=== PATIENT | female | born 1950 | race Caucasian/White ===

== ENCOUNTER 2017-03-17 02:33 | Inpatient (IN) | payer OTHER ==
[2017-03-17] MEDS: IV NORMAL SALINE 1000ML BAG 1,000 ML IV ×2 (03:00→15:15)
[2017-03-17] MEDS: dilTIAZem 125 MG in IV NORMAL SALINE 100ML 100 ML IV (03:30)
[2017-03-17 03:36] LABS: ADD MAN DIFF? NO
[2017-03-17 03:43] LABS: POC GLUCOSE 579 mg/dL (70-99)
[2017-03-17] MEDS: INSULIN REGULAR 100 UNIT/ML 10ML VIAL. IV (03:45)
[2017-03-17] MEDS: dilTIAZem IV PUSH 25 MG/5 ML VIAL IVP (03:51)
[2017-03-17 03:54] LABS: BASO # 0.1 x10^3/uL (0.0-0.2); BASO % 0 % (0-3); EOS % 0 % (0-3); HEMOGLOBIN 10.4 g/dL (12.0-15.5); LYMPH # 0.9 x10^3/uL (1.0-4.8); LYMPH % 6 % (24-48); MEAN CORPUSCULAR HEMOGLOBIN 30 pg (25-35); MEAN CORPUSCULAR HGB CONC 33 g/dL (31-37); MEAN CORPUSCULAR VOLUME 91 fL (79-100); MONO # 1.5 x10^3/uL (0.0-1.1); MONO % 10 % (0-9); NEUT # 12.3 x10^3uL (1.8-7.7); NEUT % 83 % (31-73); PLATELET COUNT 212 x10^3/uL (140-400); RED BLOOD COUNT 3.51 x10^6/uL (3.50-5.40); RED CELL DISTRIBUTION WIDTH 16.2 % (11.5-14.5); WHITE BLOOD COUNT 14.9 x10^3/uL (4.0-11.0)
[2017-03-17 03:56] LABS: INR 1.4 (0.8-1.1); PROTHROMBIN TIME PATIENT 16.3 SEC (11.7-14.0)
[2017-03-17 03:57] LABS: PARTIAL THROMBOPLASTIN TIME 31 SEC (24-38)
[2017-03-17 04:20] LABS: NT-PRO BNP 15638 pg/mL (0-124)
[2017-03-17 04:22] LABS: THYROID STIM HORMONE (TSH) 1.401 uIU/mL (0.358-3.74)
[2017-03-17 04:23] LABS: LACTIC ACID 1.8 mmol/L (0.4-2.0)
[2017-03-17 04:26] LABS: ALBUMIN 2.5 g/dL (3.4-5.0); ALBUMIN/GLOBULIN RATIO 0.7 (1.0-1.7); ALK PHOS 105 U/L (46-116); ALT (SGPT) 58 U/L (14-59); ANION GAP 15 (6-14); AST (SGOT) 71 U/L (15-37); BLOOD UREA NITROGEN 40 mg/dL (7-20); BUN/CREATININE RATIO 18 (6-20); CALCIUM 7.9 mg/dL (8.5-10.1); CARBON DIOXIDE 25 mmol/L (21-32); CHLORIDE 90 mmol/L (98-107); CREATINE KINASE 302 U/L (26-192); CREATININE 2.2 mg/dL (0.6-1.0); GFR 22.2; LIPASE 38 U/L (73-393); MAGNESIUM 1.6 mg/dL (1.8-2.4); SODIUM 130 mmol/L (136-145); TOTAL BILIRUBIN 0.6 mg/dL (0.2-1.0); TOTAL PROTEIN 6.2 g/dL (6.4-8.2)
[2017-03-17 04:45] LABS: ETHANOL < 10 mg/dL (0-10)
[2017-03-17 04:47] LABS: TROPONINI 1.006 ng/mL (0.000-0.055)
[2017-03-17 04:49] LABS: GLUCOSE 634 mg/dL (70-99)
[2017-03-17] MEDS ORDERED: ONDANSETRON PF 4 MG/2 ML VIAL. IV ×2 (05:00→08:15)
[2017-03-17] MEDS ORDERED: cefTRIAXone SODIUM 2 GM in IV DEXTROSE 5% 100 ML IV (06:00)
[2017-03-17] MEDS: ASPIRIN ENTERIC COATED 325 MG TABLET.DR. PO (06:10)
[2017-03-17 06:14] LABS: INFLUENZA A PATIENT NEGATIVE (NEGATIVE); INFLUENZA B PATIENT NEGATIVE (NEGATIVE); OBC FLU VALID
[2017-03-17 06:16] LABS: POC GLUCOSE 493 mg/dL (70-99)
[2017-03-17] MEDS: INSULIN ASPART 300 UNITS/3 ML INSULN.PEN SQ ×6 (08:00→17:00)
[2017-03-17] MEDS ORDERED: ACETAMINOPHEN 500 MG TABLET PO (08:00)
[2017-03-17] MEDS ORDERED: ALBUTEROL SULFATE 2.5 MG/3 ML NEBU. NEB (08:15)
[2017-03-17 08:28] LABS: POC GLUCOSE 549 mg/dL (70-99)
[2017-03-17] MEDS: INSULIN DETEMIR 300 UNITS/3 ML INSULN.PEN. SQ ×2 (09:00→21:00)
[2017-03-17] MEDS ORDERED: ERGOCALCIFEROL (VITAMIN D2) 50,000 UNIT CAPSULE. PO (09:00)
[2017-03-17] MEDS: cefTRIAXone IV Push 2 GM VIAL. IVP (10:06)
[2017-03-17] MEDS: PANTOPRAZOLE 40 MG TABLET.DR. PO (11:03)
[2017-03-17] MEDS: FUROSEMIDE 40 MG TABLET. PO (11:03)
[2017-03-17] MEDS: AZITHROMYCIN 250 MG TABLET. PO (11:03)
[2017-03-17] MEDS: POTASSIUM CHLORIDE 20 MEQ TABLET.ER. PO (11:03)
[2017-03-17] MEDS: FENOFIBRATE,MICRONIZED 134 MG CAPSULE PO (11:04)
[2017-03-17] MEDS: AMIODARONE HCL 200 MG TABLET. PO ×2 (11:04→21:04)
[2017-03-17] MEDS: METOPROLOL SUCC 24HR ER 25 MG TAB.ER.24H. PO (11:04)
[2017-03-17] MEDS: LOSARTAN POTASSIUM 50 MG TABLET. PO (11:04)
[2017-03-17] MEDS: LACTOBACILLUS RHAMNOSUS GG 1 CAPSULE. PO ×2 (11:05→21:04)
[2017-03-17] MEDS: VENLAFAXINE 50 MG TABLET. PO ×3 (11:05→21:04)
[2017-03-17] MEDS: predniSONE 10 MG TABLET PO (11:07)
[2017-03-17 11:18] LABS: TROPONINI 1.306 ng/mL (0.000-0.055)
[2017-03-17 11:57] LABS: POC GLUCOSE 550 mg/dL (70-99)
[2017-03-17] MEDS: IPRATRPIUM/ALBUTEROL 0.5/2.5MG 3 ML NEBU. IH ×5 (12:00→21:06)
[2017-03-17] MEDS ORDERED: DEXTROSE 50% 25 GM / 50ML DISP.SYRIN. IV (13:30)
[2017-03-17 13:44] LABS: CHOLESTEROL 170 mg/dL (0-200); HDLC 40 mg/dL (40-60); LDLC 89 mg/dL (0-100); NON-HDL CHOLESTEROL 130 mg/dL (0-129); TRIGLYCERIDES 206 mg/dL (0-150); VLDLC 41 mg/dL (0-40)
[2017-03-17 13:56] LABS: CHOLESTEROL/HDL RATIO 4.3
[2017-03-17] MEDS: MAGNESIUM SULFATE 2GM 50 ML IV (15:16)
[2017-03-17] MEDS: HEPARIN for IV BOLUS 10,000 UNIT/10 ML VIAL. IV (15:18)
[2017-03-17] MEDS: HEPARIN 25,000UTS/500ML PREMIX 500 ML IV (15:20)
[2017-03-17 15:24] LABS: POC GLUCOSE 476 mg/dL (70-99)
[2017-03-17] MEDS: INSULIN REGULAR VIAL 150 UNIT in 0.9 % SODIUM CHLORIDE 150ML 150 ML IV ×2 (15:32→23:51)
[2017-03-17 16:24] LABS: POC GLUCOSE 441 mg/dL (70-99)
[2017-03-17] MEDS ORDERED: dilTIAZem 125 MG in IV NORMAL SALINE 100ML 100 ML IV (17:15)
[2017-03-17 17:27] LABS: POC GLUCOSE 445 mg/dL (70-99)
[2017-03-17 18:30] LABS: POC GLUCOSE 378 mg/dL (70-99)
[2017-03-17 18:47] LABS: TROPONINI 0.851 ng/mL (0.000-0.055)
[2017-03-17 19:58] LABS: POC GLUCOSE 380 mg/dL (70-99)
[2017-03-17] MEDS: BUDESONIDE 0.5 MG/2 ML NEBU. NEB (20:04)
[2017-03-17 20:28] LABS: POC GLUCOSE 371 mg/dL (70-99)
[2017-03-17] MEDS: clonazePAM 0.5 MG TABLET PO (21:04)
[2017-03-17] MEDS: traZODone 100 MG TABLET. PO (21:04)
[2017-03-17 21:42] LABS: POC GLUCOSE 300 mg/dL (70-99)
[2017-03-17 21:47] LABS: UNFRACTIONATED HEPARIN TESTING > 1.10 IU/mL (0.30-0.70)
[2017-03-17] MEDS: ATORVASTATIN CALCIUM 40 MG TABLET. PO (22:41)
[2017-03-17 22:48] LABS: POC GLUCOSE 284 mg/dL (70-99)
[2017-03-17 23:54] LABS: POC GLUCOSE 221 mg/dL (70-99)
[2017-03-18] MEDS: IV NORMAL SALINE 1000ML BAG 1,000 ML IV ×6 (00:30→18:55)
[2017-03-18 00:57] LABS: POC GLUCOSE 195 mg/dL (70-99)
[2017-03-18 01:58] LABS: POC GLUCOSE 187 mg/dL (70-99)
[2017-03-18 03:06] LABS: POC GLUCOSE 159 mg/dL (70-99)
[2017-03-18 04:08] LABS: POC GLUCOSE 140 mg/dL (70-99)
[2017-03-18 04:19] LABS: HEMOGLOBIN A1C 8.8 % (4.8-5.6)
[2017-03-18 04:47] LABS: BASO % 0 % (0-3); EOS % 0 % (0-3); HEMATOCRIT 27.6 % (36.0-47.0); HEMOGLOBIN 9.2 g/dL (12.0-15.5); LYMPH # 1.2 x10^3/uL (1.0-4.8); LYMPH % 9 % (24-48); MEAN CORPUSCULAR HEMOGLOBIN 31 pg (25-35); MEAN CORPUSCULAR HGB CONC 33 g/dL (31-37); MEAN CORPUSCULAR VOLUME 92 fL (79-100); MONO # 1.2 x10^3/uL (0.0-1.1); MONO % 9 % (0-9); NEUT # 11.1 x10^3uL (1.8-7.7); NEUT % 82 % (31-73); PLATELET COUNT 182 x10^3/uL (140-400); RED BLOOD COUNT 3.01 x10^6/uL (3.50-5.40); RED CELL DISTRIBUTION WIDTH 16.3 % (11.5-14.5); WHITE BLOOD COUNT 13.6 x10^3/uL (4.0-11.0)
[2017-03-18 04:50] LABS: ADD MAN DIFF? YES
[2017-03-18 04:57] LABS: ANION GAP 10 (6-14); BLOOD UREA NITROGEN 49 mg/dL (7-20); CALCIUM 7.7 mg/dL (8.5-10.1); CARBON DIOXIDE 27 mmol/L (21-32); CHLORIDE 99 mmol/L (98-107); CREATININE 2.7 mg/dL (0.6-1.0); GFR 17.5; GLUCOSE 145 mg/dL (70-99); POTASSIUM 4.1 mmol/L (3.5-5.1); SODIUM 136 mmol/L (136-145)
[2017-03-18 05:13] LABS: POC GLUCOSE 135 mg/dL (70-99)
[2017-03-18 06:10] LABS: POC GLUCOSE 111 mg/dL (70-99)
[2017-03-18 06:20] LABS: UNFRACTIONATED HEPARIN TESTING > 1.10 IU/mL (0.30-0.70)
[2017-03-18] MEDS: cefTRIAXone IV Push 2 GM VIAL. IVP (06:21)
[2017-03-18 07:13] LABS: POC GLUCOSE 116 mg/dL (70-99)
[2017-03-18] MEDS: INSULIN ASPART 300 UNITS/3 ML INSULN.PEN SQ ×6 (07:30→17:00)
[2017-03-18 07:57] LABS: POC GLUCOSE 100 mg/dL (70-99)
[2017-03-18 07:58] LABS: % BANDS 12 % (0-9); % EOS 1 % (0-5); % LYMPHS 7 % (24-48); % METAS 1 % (0-0); % MONOS 9 % (0-10); % SEGS 70 % (35-66); NUCLEATED RBC 2; PLT ESTIMATE ADEQUATE (ADEQUATE)
[2017-03-18 07:59] LABS: ANISOCYTOSIS SLIGHT; POLYCHROMASIA PRESENT
[2017-03-18] MEDS: IPRATRPIUM/ALBUTEROL 0.5/2.5MG 3 ML NEBU. IH ×3 (07:59→16:05)
[2017-03-18] MEDS: BUDESONIDE 0.5 MG/2 ML NEBU. NEB ×2 (08:00→21:08)
[2017-03-18 08:18] LABS: POC GLUCOSE 98 mg/dL (70-99)
[2017-03-18] MEDS: INSULIN DETEMIR 300 UNITS/3 ML INSULN.PEN. SQ ×2 (09:00→21:23)
[2017-03-18 09:21] LABS: POC GLUCOSE 98 mg/dL (70-99)
[2017-03-18 10:28] LABS: POC GLUCOSE 105 mg/dL (70-99)
[2017-03-18 12:16] LABS: POC GLUCOSE 138 mg/dL (70-99)
[2017-03-18] MEDS: REGADENOSON 0.4 MG/5 ML DISP.SYRIN. IV (12:30)
[2017-03-18] MEDS: AMIODARONE HCL 200 MG TABLET. PO ×2 (13:21→21:21)
[2017-03-18] MEDS: predniSONE 10 MG TABLET PO (13:21)
[2017-03-18] MEDS: PANTOPRAZOLE 40 MG TABLET.DR. PO (13:21)
[2017-03-18] MEDS: LACTOBACILLUS RHAMNOSUS GG 1 CAPSULE. PO ×2 (13:21→21:20)
[2017-03-18] MEDS: FENOFIBRATE,MICRONIZED 134 MG CAPSULE PO (13:21)
[2017-03-18] MEDS: VENLAFAXINE 50 MG TABLET. PO ×3 (13:21→21:20)
[2017-03-18] MEDS: METOPROLOL SUCC 24HR ER 25 MG TAB.ER.24H. PO (13:21)
[2017-03-18] MEDS: dilTIAZem HCL 30 MG TABLET PO (15:38)
[2017-03-18] MEDS: HYDROcodone/APAP 5/325MG 1 TAB TABLET PO (15:39)
[2017-03-18] MEDS: DIGOXIN IV 500 MCG/2 ML AMPUL. IV (15:39)
[2017-03-18] MEDS: COLESTIPOL HCL 1 GM TABLET PO (16:00)
[2017-03-18 17:13] LABS: POC GLUCOSE 203 mg/dL (70-99)
[2017-03-18] MEDS: ATORVASTATIN CALCIUM 40 MG TABLET. PO (21:20)
[2017-03-18] MEDS: traZODone 100 MG TABLET. PO (21:20)
[2017-03-18] MEDS: clonazePAM 0.5 MG TABLET PO (21:21)
[2017-03-18 21:22] LABS: POC GLUCOSE 267 mg/dL (70-99)
[2017-03-19] MEDS: cefTRIAXone IV Push 2 GM VIAL. IVP (05:25)
[2017-03-19] MEDS: IV NORMAL SALINE 1000ML BAG 1,000 ML IV ×6 (05:25→21:07)
[2017-03-19] MEDS: IPRATRPIUM/ALBUTEROL 0.5/2.5MG 3 ML NEBU. IH ×4 (07:36→19:30)
[2017-03-19] MEDS ORDERED: ASPIRIN ENTERIC COATED 325 MG TABLET.DR. PO (08:00)
[2017-03-19 08:19] LABS: POC GLUCOSE 279 mg/dL (70-99)
[2017-03-19 08:34] LABS: ANION GAP 8 (6-14); BLOOD UREA NITROGEN 42 mg/dL (7-20); CALCIUM 7.3 mg/dL (8.5-10.1); CARBON DIOXIDE 26 mmol/L (21-32); CHLORIDE 104 mmol/L (98-107); CREATININE 1.8 mg/dL (0.6-1.0); GLUCOSE 291 mg/dL (70-99); MAGNESIUM 2.4 mg/dL (1.8-2.4); POTASSIUM 4.7 mmol/L (3.5-5.1); SODIUM 138 mmol/L (136-145)
[2017-03-19] MEDS: INSULIN DETEMIR 300 UNITS/3 ML INSULN.PEN. SQ ×2 (09:19→21:24)
[2017-03-19] MEDS: INSULIN ASPART 300 UNITS/3 ML INSULN.PEN SQ ×6 (09:31→18:34)
[2017-03-19] MEDS: PANTOPRAZOLE 40 MG TABLET.DR. PO (09:53)
[2017-03-19] MEDS: ASPIRIN ENTERIC COATED 81 MG TABLET.DR. PO (09:53)
[2017-03-19] MEDS: LACTOBACILLUS RHAMNOSUS GG 1 CAPSULE. PO ×2 (09:53→21:03)
[2017-03-19] MEDS: FENOFIBRATE,MICRONIZED 134 MG CAPSULE PO (09:54)
[2017-03-19] MEDS: VENLAFAXINE 50 MG TABLET. PO ×3 (09:54→21:02)
[2017-03-19] MEDS: predniSONE 10 MG TABLET PO (09:59)
[2017-03-19] MEDS: AMIODARONE HCL 200 MG TABLET. PO ×2 (09:59→21:03)
[2017-03-19] MEDS: METOPROLOL SUCC 24HR ER 25 MG TAB.ER.24H. PO (10:00)
[2017-03-19] MEDS: BUDESONIDE 0.5 MG/2 ML NEBU. NEB ×2 (11:20→19:31)
[2017-03-19] MEDS: COLESTIPOL HCL 1 GM TABLET PO (11:35)
[2017-03-19 11:54] LABS: POC GLUCOSE 264 mg/dL (70-99)
[2017-03-19] MEDS ORDERED: ANTI-COAG MONITOR BY PHARMACY. MC (13:45)
[2017-03-19] MEDS: APIXABAN 5 MG TABLET. PO (16:04)
[2017-03-19 16:38] LABS: POC GLUCOSE 286 mg/dL (70-99)
[2017-03-19 16:53] LABS: BILIRUBIN,URINE NEGATIVE (NEG); CLARITY,URINE CLEAR; COLOR,URINE YELLOW; GLUCOSE,URINE 100 mg/dL (NEG); NITRITE,URINE NEGATIVE (NEG); PH,URINE 5.5; PROTEIN,URINE NEGATIVE (NEG-TRACE); UROBILINOGEN,URINE 0.2 mg/dL (0.2 mg/dL)
[2017-03-19 17:13] LABS: BACTERIA,URINE 0 /HPF (0-FEW); RBC,URINE 0 /HPF (0-2); SQUAMOUS EPITHELIAL CELL,UR OCC /LPF; YEAST,URINE PRESENT /HPF
[2017-03-19] MEDS: clonazePAM 0.5 MG TABLET PO (21:02)
[2017-03-19] MEDS: ATORVASTATIN CALCIUM 40 MG TABLET. PO (21:02)
[2017-03-19] MEDS: HYDROcodone/APAP 5/325MG 1 TAB TABLET PO (21:02)
[2017-03-19] MEDS: traZODone 100 MG TABLET. PO (21:02)
[2017-03-19 21:10] LABS: POC GLUCOSE 308 mg/dL (70-99)
[2017-03-20 05:43] LABS: ANION GAP 8 (6-14); BLOOD UREA NITROGEN 34 mg/dL (7-20); CALCIUM 6.2 mg/dL (8.5-10.1); CARBON DIOXIDE 25 mmol/L (21-32); CHLORIDE 110 mmol/L (98-107); CREATININE 1.1 mg/dL (0.6-1.0); GFR 49.4; GLUCOSE 96 mg/dL (70-99); POTASSIUM 3.9 mmol/L (3.5-5.1); SODIUM 143 mmol/L (136-145)
[2017-03-20] MEDS: cefTRIAXone IV Push 2 GM VIAL. IVP (06:04)
[2017-03-20] MEDS: INSULIN ASPART 300 UNITS/3 ML INSULN.PEN SQ ×6 (07:30→18:13)
[2017-03-20] MEDS: IPRATRPIUM/ALBUTEROL 0.5/2.5MG 3 ML NEBU. IH ×4 (07:44→20:59)
[2017-03-20] MEDS: BUDESONIDE 0.5 MG/2 ML NEBU. NEB ×2 (07:44→20:59)
[2017-03-20 08:00] LABS: POC GLUCOSE 69 mg/dL (70-99)
[2017-03-20 08:19] LABS: POC GLUCOSE 86 mg/dL (70-99)
[2017-03-20] MEDS: ASPIRIN ENTERIC COATED 81 MG TABLET.DR. PO (08:53)
[2017-03-20] MEDS: LACTOBACILLUS RHAMNOSUS GG 1 CAPSULE. PO ×2 (08:53→22:26)
[2017-03-20] MEDS: VENLAFAXINE 50 MG TABLET. PO ×3 (08:53→22:26)
[2017-03-20] MEDS: predniSONE 10 MG TABLET PO (08:53)
[2017-03-20] MEDS: PANTOPRAZOLE 40 MG TABLET.DR. PO (08:53)
[2017-03-20] MEDS: AMIODARONE HCL 200 MG TABLET. PO ×2 (08:53→22:28)
[2017-03-20] MEDS: FENOFIBRATE,MICRONIZED 134 MG CAPSULE PO (08:54)
[2017-03-20] MEDS: METOPROLOL SUCC 24HR ER 25 MG TAB.ER.24H. PO (08:54)
[2017-03-20] MEDS: INSULIN DETEMIR 300 UNITS/3 ML INSULN.PEN. SQ ×2 (09:00→22:35)
[2017-03-20] MEDS: IV NORMAL SALINE 1000ML BAG 1,000 ML IV (10:32)
[2017-03-20] MEDS: COLESTIPOL HCL 1 GM TABLET PO (10:32)
[2017-03-20 11:32] LABS: POC GLUCOSE 187 mg/dL (70-99)
[2017-03-20] MEDS: CALCIUM CHLORIDE 1,000 MG/10 ML DISP.SYRIN IV (11:50)
[2017-03-20 16:56] LABS: POC GLUCOSE 194 mg/dL (70-99)
[2017-03-20 20:49] LABS: POC GLUCOSE 184 mg/dL (70-99)
[2017-03-20] MEDS: ATORVASTATIN CALCIUM 40 MG TABLET. PO (22:26)
[2017-03-20] MEDS: clonazePAM 0.5 MG TABLET PO (22:27)
[2017-03-20] MEDS: traZODone 100 MG TABLET. PO (22:27)
[2017-03-20] MEDS: HYDROcodone/APAP 5/325MG 1 TAB TABLET PO (22:27)
[2017-03-21] MEDS: IV NORMAL SALINE 1000ML BAG 1,000 ML IV ×2 (02:25→17:34)
[2017-03-21] MEDS: HYDROcodone/APAP 5/325MG 1 TAB TABLET PO ×2 (04:57→21:56)
[2017-03-21] MEDS: cefTRIAXone IV Push 2 GM VIAL. IVP (05:03)
[2017-03-21 07:22] LABS: ADD MAN DIFF? NO
[2017-03-21] MEDS: INSULIN ASPART 300 UNITS/3 ML INSULN.PEN SQ ×6 (07:30→17:37)
[2017-03-21 07:37] LABS: BASO % 0 % (0-3); EOS % 1 % (0-3); HEMATOCRIT 28.6 % (36.0-47.0); HEMOGLOBIN 9.3 g/dL (12.0-15.5); LYMPH # 1.2 x10^3/uL (1.0-4.8); LYMPH % 16 % (24-48); MEAN CORPUSCULAR HEMOGLOBIN 30 pg (25-35); MEAN CORPUSCULAR HGB CONC 32 g/dL (31-37); MEAN CORPUSCULAR VOLUME 93 fL (79-100); MONO # 0.6 x10^3/uL (0.0-1.1); MONO % 8 % (0-9); NEUT # 5.5 x10^3uL (1.8-7.7); NEUT % 74 % (31-73); PLATELET COUNT 223 x10^3/uL (140-400); RED BLOOD COUNT 3.08 x10^6/uL (3.50-5.40); RED CELL DISTRIBUTION WIDTH 16.3 % (11.5-14.5); WHITE BLOOD COUNT 7.3 x10^3/uL (4.0-11.0)
[2017-03-21 07:41] LABS: CALCIUM 8.6 mg/dL (8.5-10.1)
[2017-03-21 07:41] LABS: MAGNESIUM 2.1 mg/dL (1.8-2.4)
[2017-03-21 08:17] LABS: POC GLUCOSE 67 mg/dL (70-99)
[2017-03-21] MEDS: IPRATRPIUM/ALBUTEROL 0.5/2.5MG 3 ML NEBU. IH ×4 (08:25→18:15)
[2017-03-21] MEDS: BUDESONIDE 0.5 MG/2 ML NEBU. NEB ×2 (08:25→18:15)
[2017-03-21] MEDS: PANTOPRAZOLE 40 MG TABLET.DR. PO (09:03)
[2017-03-21] MEDS: ASPIRIN ENTERIC COATED 81 MG TABLET.DR. PO (09:03)
[2017-03-21] MEDS: VENLAFAXINE 50 MG TABLET. PO ×3 (09:03→21:57)
[2017-03-21] MEDS: predniSONE 10 MG TABLET PO (09:03)
[2017-03-21] MEDS: LACTOBACILLUS RHAMNOSUS GG 1 CAPSULE. PO ×2 (09:03→21:57)
[2017-03-21] MEDS: FENOFIBRATE,MICRONIZED 134 MG CAPSULE PO (09:03)
[2017-03-21] MEDS: AMIODARONE HCL 200 MG TABLET. PO ×2 (09:04→21:57)
[2017-03-21] MEDS: METOPROLOL SUCC 24HR ER 25 MG TAB.ER.24H. PO (09:04)
[2017-03-21] MEDS: INSULIN DETEMIR 300 UNITS/3 ML INSULN.PEN. SQ ×2 (09:08→22:05)
[2017-03-21] MEDS: COLESTIPOL HCL 1 GM TABLET PO (10:14)
[2017-03-21 11:56] LABS: POC GLUCOSE 146 mg/dL (70-99)
[2017-03-21] MEDS: DIPHENHYDRAMINE/ZINC ACETATE 2%/0.1% TOPICAL CREAM 28GM TUBE. TP ×3 (13:13→22:07)
[2017-03-21 16:37] LABS: POC GLUCOSE 184 mg/dL (70-99)
[2017-03-21 18:24] LABS: UNFRACTIONATED HEPARIN TESTING < 0.10 IU/mL (0.30-0.70)
[2017-03-21 21:06] LABS: POC GLUCOSE 146 mg/dL (70-99)
[2017-03-21] MEDS: traZODone 100 MG TABLET. PO (21:55)
[2017-03-21] MEDS: clonazePAM 0.5 MG TABLET PO (21:56)
[2017-03-21] MEDS: ATORVASTATIN CALCIUM 40 MG TABLET. PO (21:56)
[2017-03-22] MEDS: IV NORMAL SALINE 1000ML BAG 1,000 ML IV ×2 (02:55→13:12)
[2017-03-22] MEDS: cefTRIAXone IV Push 2 GM VIAL. IVP (05:05)
[2017-03-22] MEDS: IPRATRPIUM/ALBUTEROL 0.5/2.5MG 3 ML NEBU. IH ×4 (06:05→19:48)
[2017-03-22] MEDS: BUDESONIDE 0.5 MG/2 ML NEBU. NEB ×2 (06:05→19:48)
[2017-03-22] MEDS: INSULIN ASPART 300 UNITS/3 ML INSULN.PEN SQ ×6 (07:30→17:00)
[2017-03-22] MEDS: PANTOPRAZOLE 40 MG TABLET.DR. PO (07:30)
[2017-03-22] MEDS: DEXTROSE 50% 25 GM / 50ML DISP.SYRIN. IV ×2 (08:18→13:13)
[2017-03-22] MEDS: VENLAFAXINE 50 MG TABLET. PO ×3 (08:25→22:57)
[2017-03-22 08:43] LABS: POC GLUCOSE 104 mg/dL (70-99)
[2017-03-22 08:49] LABS: POC GLUCOSE 63 mg/dL (70-99)
[2017-03-22] MEDS: FENOFIBRATE,MICRONIZED 134 MG CAPSULE PO (09:00)
[2017-03-22] MEDS: LACTOBACILLUS RHAMNOSUS GG 1 CAPSULE. PO ×2 (09:00→22:57)
[2017-03-22] MEDS: predniSONE 10 MG TABLET PO (09:00)
[2017-03-22] MEDS: INSULIN DETEMIR 300 UNITS/3 ML INSULN.PEN. SQ ×2 (09:00→23:08)
[2017-03-22] MEDS: AMIODARONE HCL 200 MG TABLET. PO ×2 (09:08→22:58)
[2017-03-22] MEDS: ASPIRIN ENTERIC COATED 81 MG TABLET.DR. PO (09:08)
[2017-03-22] MEDS: METOPROLOL SUCC 24HR ER 25 MG TAB.ER.24H. PO (09:08)
[2017-03-22] MEDS: DIPHENHYDRAMINE/ZINC ACETATE 2%/0.1% TOPICAL CREAM 28GM TUBE. TP ×4 (09:09→23:07)
[2017-03-22] MEDS: COLESTIPOL HCL 1 GM TABLET PO (10:00)
[2017-03-22 10:34] LABS: POC GLUCOSE 75 mg/dL (70-99)
[2017-03-22 11:26] LABS: POC GLUCOSE 74 mg/dL (70-99)
[2017-03-22] MEDS: NITROGLYCERIN OINT 1 GM PACKET. TP (12:05)
[2017-03-22 12:15] LABS: POC GLUCOSE 72 mg/dL (70-99)
[2017-03-22 13:08] LABS: POC GLUCOSE 77 mg/dL (70-99)
[2017-03-22] MEDS ORDERED: LIDOCAINE 1% Multi-Dose 20 ML VIAL. (15:47)
[2017-03-22 15:59] LABS: POC GLUCOSE 91 mg/dL (70-99)
[2017-03-22] MEDS ORDERED: MIDAZOLAM HCL/PF 5 MG/5 ML VIAL. (16:19)
[2017-03-22] MEDS ORDERED: fentaNYL PF VIAL 100 MCG/2 ML VIAL (16:19)
[2017-03-22] MEDS ORDERED: HEPARIN for IV BOLUS 10,000 UNIT/10 ML VIAL. (16:19)
[2017-03-22] MEDS ORDERED: NITROGLYCERIN 200 MCG/2 ML SYRINGE FOR CATH/VASC LAB. (16:19)
[2017-03-22] MEDS ORDERED: VERAPAMIL 5 MG/2 ML VIAL. (16:19)
[2017-03-22] MEDS ORDERED: CONTRAST GIVEN MC (16:45)
[2017-03-22] MEDS: IODIXANOL 320 MG/ML 100 ML VIAL. IART (16:57)
[2017-03-22] MEDS: NITROGLYCERIN 200 MCG/2 ML SYRINGE FOR CATH/VASC LAB. IART (16:58)
[2017-03-22] MEDS: LIDOCAINE 2% 20 ML VIAL. IJ (16:58)
[2017-03-22] MEDS: VERAPAMIL 5 MG/2 ML VIAL. IART (16:59)
[2017-03-22] MEDS: fentaNYL PF VIAL 100 MCG/2 ML VIAL IV (17:00)
[2017-03-22] MEDS: MIDAZOLAM HCL/PF 5 MG/5 ML VIAL. IV (17:00)
[2017-03-22] MEDS: HEPARIN for IV BOLUS 10,000 UNIT/10 ML VIAL. IART (17:01)
[2017-03-22 20:46] LABS: POC GLUCOSE 105 mg/dL (70-99)
[2017-03-22] MEDS: ATORVASTATIN CALCIUM 40 MG TABLET. PO (22:57)
[2017-03-22] MEDS: clonazePAM 0.5 MG TABLET PO (22:58)
[2017-03-22] MEDS: traZODone 100 MG TABLET. PO (22:58)
[2017-03-22 23:39] LABS: POC GLUCOSE 67 mg/dL (70-99)
[2017-03-23 00:18] LABS: POC GLUCOSE 101 mg/dL (70-99)
[2017-03-23] MEDS: cefTRIAXone IV Push 2 GM VIAL. IVP (05:54)
[2017-03-23] MEDS: INSULIN ASPART 300 UNITS/3 ML INSULN.PEN SQ ×6 (07:30→17:44)
[2017-03-23] MEDS: IPRATRPIUM/ALBUTEROL 0.5/2.5MG 3 ML NEBU. IH ×4 (07:42→19:42)
[2017-03-23] MEDS: BUDESONIDE 0.5 MG/2 ML NEBU. NEB ×2 (07:42→19:42)
[2017-03-23 08:11] LABS: POC GLUCOSE 134 mg/dL (70-99)
[2017-03-23] MEDS: DIPHENHYDRAMINE/ZINC ACETATE 2%/0.1% TOPICAL CREAM 28GM TUBE. TP ×4 (09:00→21:00)
[2017-03-23] MEDS: predniSONE 10 MG TABLET PO (09:38)
[2017-03-23] MEDS: LACTOBACILLUS RHAMNOSUS GG 1 CAPSULE. PO ×2 (09:38→20:57)
[2017-03-23] MEDS: AMIODARONE HCL 200 MG TABLET. PO (09:39)
[2017-03-23] MEDS: METOPROLOL SUCC 24HR ER 25 MG TAB.ER.24H. PO (09:39)
[2017-03-23] MEDS: PANTOPRAZOLE 40 MG TABLET.DR. PO (09:41)
[2017-03-23] MEDS: VENLAFAXINE 50 MG TABLET. PO ×3 (09:41→20:58)
[2017-03-23] MEDS: ASPIRIN ENTERIC COATED 81 MG TABLET.DR. PO (09:41)
[2017-03-23] MEDS: FENOFIBRATE,MICRONIZED 134 MG CAPSULE PO (09:41)
[2017-03-23] MEDS: APIXABAN 5 MG TABLET. PO ×2 (09:41→20:58)
[2017-03-23] MEDS: INSULIN DETEMIR 300 UNITS/3 ML INSULN.PEN. SQ ×2 (09:51→21:06)
[2017-03-23] MEDS: COLESTIPOL HCL 1 GM TABLET PO (10:22)
[2017-03-23 13:18] LABS: POC GLUCOSE 241 mg/dL (70-99)
[2017-03-23] MEDS: FUROSEMIDE 40 MG TABLET. PO (15:13)
[2017-03-23] MEDS: ANTI-COAG MONITOR BY PHARMACY. MC (16:01)
[2017-03-23 16:17] LABS: POC GLUCOSE 146 mg/dL (70-99)
[2017-03-23 20:40] LABS: POC GLUCOSE 118 mg/dL (70-99)
[2017-03-23] MEDS: traZODone 100 MG TABLET. PO (20:57)
[2017-03-23] MEDS: clonazePAM 0.5 MG TABLET PO (20:58)
[2017-03-23] MEDS: ATORVASTATIN CALCIUM 40 MG TABLET. PO (21:04)
[2017-03-24] MEDS: cefTRIAXone IV Push 2 GM VIAL. IVP (05:40)
[2017-03-24] MEDS: INSULIN ASPART 300 UNITS/3 ML INSULN.PEN SQ ×6 (08:00→18:10)
[2017-03-24] MEDS: BUDESONIDE 0.5 MG/2 ML NEBU. NEB ×2 (08:05→19:29)
[2017-03-24] MEDS: IPRATRPIUM/ALBUTEROL 0.5/2.5MG 3 ML NEBU. IH ×4 (08:05→19:29)
[2017-03-24] MEDS: DIPHENHYDRAMINE/ZINC ACETATE 2%/0.1% TOPICAL CREAM 28GM TUBE. TP ×4 (09:00→20:31)
[2017-03-24] MEDS: VENLAFAXINE 50 MG TABLET. PO ×3 (09:23→21:15)
[2017-03-24] MEDS: PANTOPRAZOLE 40 MG TABLET.DR. PO (09:23)
[2017-03-24] MEDS: predniSONE 10 MG TABLET PO (09:23)
[2017-03-24] MEDS: APIXABAN 5 MG TABLET. PO ×2 (09:23→21:15)
[2017-03-24] MEDS: LACTOBACILLUS RHAMNOSUS GG 1 CAPSULE. PO ×2 (09:23→21:15)
[2017-03-24] MEDS: FUROSEMIDE 40 MG TABLET. PO (09:23)
[2017-03-24] MEDS: ASPIRIN ENTERIC COATED 81 MG TABLET.DR. PO (09:23)
[2017-03-24] MEDS: FENOFIBRATE,MICRONIZED 134 MG CAPSULE PO (09:23)
[2017-03-24] MEDS: AMIODARONE HCL 200 MG TABLET. PO (09:24)
[2017-03-24] MEDS: METOPROLOL SUCC 24HR ER 25 MG TAB.ER.24H. PO (09:24)
[2017-03-24] MEDS: COLESTIPOL HCL 1 GM TABLET PO (10:04)
[2017-03-24] MEDS: ERGOCALCIFEROL (VITAMIN D2) 50,000 UNIT CAPSULE. PO (10:04)
[2017-03-24] MEDS: HYDROcodone/APAP 5/325MG 1 TAB TABLET PO ×2 (10:05→11:39)
[2017-03-24] MEDS: INSULIN DETEMIR 300 UNITS/3 ML INSULN.PEN. SQ ×2 (10:14→21:20)
[2017-03-24 10:29] LABS: POC GLUCOSE 129 mg/dL (70-99)
[2017-03-24 11:55] LABS: POC GLUCOSE 204 mg/dL (70-99)
[2017-03-24 17:37] LABS: POC GLUCOSE 254 mg/dL (70-99)
[2017-03-24] MEDS: ATORVASTATIN CALCIUM 40 MG TABLET. PO (21:15)
[2017-03-24] MEDS: traZODone 100 MG TABLET. PO (21:15)
[2017-03-24 21:18] LABS: POC GLUCOSE 235 mg/dL (70-99)
[2017-03-24] MEDS: clonazePAM 0.5 MG TABLET PO (21:20)
[2017-03-25] MEDS: cefTRIAXone IV Push 2 GM VIAL. IVP (06:10)
[2017-03-25] MEDS: BUDESONIDE 0.5 MG/2 ML NEBU. NEB ×2 (07:15→19:42)
[2017-03-25] MEDS: IPRATRPIUM/ALBUTEROL 0.5/2.5MG 3 ML NEBU. IH ×4 (07:15→19:43)
[2017-03-25] MEDS: INSULIN ASPART 300 UNITS/3 ML INSULN.PEN SQ ×6 (07:30→17:35)
[2017-03-25] MEDS: DIPHENHYDRAMINE/ZINC ACETATE 2%/0.1% TOPICAL CREAM 28GM TUBE. TP ×4 (07:50→20:40)
[2017-03-25 08:23] LABS: POC GLUCOSE 89 mg/dL (70-99)
[2017-03-25] MEDS: VENLAFAXINE 50 MG TABLET. PO ×3 (08:36→20:40)
[2017-03-25] MEDS: FENOFIBRATE,MICRONIZED 134 MG CAPSULE PO (08:36)
[2017-03-25] MEDS: APIXABAN 5 MG TABLET. PO ×2 (08:36→20:40)
[2017-03-25] MEDS: PANTOPRAZOLE 40 MG TABLET.DR. PO (08:36)
[2017-03-25] MEDS: predniSONE 10 MG TABLET PO (08:36)
[2017-03-25] MEDS: FUROSEMIDE 40 MG TABLET. PO (08:37)
[2017-03-25] MEDS: ASPIRIN ENTERIC COATED 81 MG TABLET.DR. PO (08:37)
[2017-03-25] MEDS: LACTOBACILLUS RHAMNOSUS GG 1 CAPSULE. PO ×2 (08:37→20:40)
[2017-03-25] MEDS: AMIODARONE HCL 200 MG TABLET. PO (08:37)
[2017-03-25] MEDS: METOPROLOL SUCC 24HR ER 25 MG TAB.ER.24H. PO (08:38)
[2017-03-25] MEDS: INSULIN DETEMIR 300 UNITS/3 ML INSULN.PEN. SQ ×2 (08:45→21:25)
[2017-03-25] MEDS: ANTI-COAG MONITOR BY PHARMACY. MC (09:08)
[2017-03-25] MEDS: COLESTIPOL HCL 1 GM TABLET PO (10:00)
[2017-03-25 12:25] LABS: POC GLUCOSE 252 mg/dL (70-99)
[2017-03-25 17:32] LABS: POC GLUCOSE 294 mg/dL (70-99)
[2017-03-25] MEDS: traZODone 100 MG TABLET. PO (20:40)
[2017-03-25] MEDS: ATORVASTATIN CALCIUM 40 MG TABLET. PO (20:40)
[2017-03-25] MEDS: clonazePAM 0.5 MG TABLET PO (20:40)
[2017-03-25 20:52] LABS: POC GLUCOSE 157 mg/dL (70-99)
[2017-03-26] MEDS: cefTRIAXone IV Push 2 GM VIAL. IVP (05:17)
[2017-03-26] MEDS: PANTOPRAZOLE 40 MG TABLET.DR. PO (06:38)
[2017-03-26 06:56] LABS: POC GLUCOSE 66 mg/dL (70-99)
[2017-03-26] MEDS: INSULIN ASPART 300 UNITS/3 ML INSULN.PEN SQ ×7 (07:30→17:46)
[2017-03-26 07:49] LABS: POC GLUCOSE 152 mg/dL (70-99)
[2017-03-26] MEDS: BUDESONIDE 0.5 MG/2 ML NEBU. NEB ×2 (07:55→20:21)
[2017-03-26] MEDS: IPRATRPIUM/ALBUTEROL 0.5/2.5MG 3 ML NEBU. IH ×4 (07:55→20:21)
[2017-03-26] MEDS: DIPHENHYDRAMINE/ZINC ACETATE 2%/0.1% TOPICAL CREAM 28GM TUBE. TP ×4 (09:00→20:32)
[2017-03-26] MEDS: LACTOBACILLUS RHAMNOSUS GG 1 CAPSULE. PO ×2 (09:07→20:32)
[2017-03-26] MEDS: VENLAFAXINE 50 MG TABLET. PO ×3 (09:07→20:32)
[2017-03-26] MEDS: COLESTIPOL HCL 1 GM TABLET PO (09:07)
[2017-03-26] MEDS: FENOFIBRATE,MICRONIZED 134 MG CAPSULE PO (09:07)
[2017-03-26] MEDS: ASPIRIN ENTERIC COATED 81 MG TABLET.DR. PO (09:10)
[2017-03-26] MEDS: predniSONE 10 MG TABLET PO (09:10)
[2017-03-26] MEDS: APIXABAN 5 MG TABLET. PO ×2 (09:11→20:32)
[2017-03-26] MEDS: AMIODARONE HCL 200 MG TABLET. PO (09:11)
[2017-03-26] MEDS: FUROSEMIDE 40 MG TABLET. PO (09:11)
[2017-03-26] MEDS: METOPROLOL SUCC 24HR ER 25 MG TAB.ER.24H. PO (09:12)
[2017-03-26] MEDS: INSULIN DETEMIR 300 UNITS/3 ML INSULN.PEN. SQ ×2 (09:20→21:59)
[2017-03-26] MEDS: ANTI-COAG MONITOR BY PHARMACY. MC (09:21)
[2017-03-26 11:16] LABS: ANION GAP 7 (6-14); BLOOD UREA NITROGEN 27 mg/dL (7-20); CALCIUM 9.6 mg/dL (8.5-10.1); CARBON DIOXIDE 36 mmol/L (21-32); CHLORIDE 100 mmol/L (98-107); CREATININE 1.3 mg/dL (0.6-1.0); GFR 40.7; GLUCOSE 147 mg/dL (70-99); SODIUM 143 mmol/L (136-145)
[2017-03-26 11:50] LABS: POC GLUCOSE 170 mg/dL (70-99)
[2017-03-26] MEDS: LOSARTAN POTASSIUM 50 MG TABLET. PO (14:24)
[2017-03-26 17:09] LABS: POC GLUCOSE 140 mg/dL (70-99)
[2017-03-26] MEDS: ATORVASTATIN CALCIUM 40 MG TABLET. PO (20:32)
[2017-03-26] MEDS: clonazePAM 0.5 MG TABLET PO (20:32)
[2017-03-26] MEDS: traZODone 100 MG TABLET. PO (20:32)
[2017-03-26 22:02] LABS: POC GLUCOSE 119 mg/dL (70-99)
[2017-03-27] MEDS: cefTRIAXone IV Push 2 GM VIAL. IVP (05:04)
[2017-03-27] MEDS: PANTOPRAZOLE 40 MG TABLET.DR. PO (06:14)
[2017-03-27] MEDS: INSULIN ASPART 300 UNITS/3 ML INSULN.PEN SQ ×3 (08:00→11:30)
[2017-03-27] MEDS: IPRATRPIUM/ALBUTEROL 0.5/2.5MG 3 ML NEBU. IH (08:01)
[2017-03-27] MEDS: BUDESONIDE 0.5 MG/2 ML NEBU. NEB (08:01)
[2017-03-27 08:28] LABS: POC GLUCOSE 107 mg/dL (70-99)
[2017-03-27] MEDS: AMIODARONE HCL 200 MG TABLET. PO (09:00)
[2017-03-27] MEDS: FUROSEMIDE 40 MG TABLET. PO (09:02)
[2017-03-27] MEDS: COLESTIPOL HCL 1 GM TABLET PO (09:02)
[2017-03-27] MEDS: LACTOBACILLUS RHAMNOSUS GG 1 CAPSULE. PO (09:02)
[2017-03-27] MEDS: predniSONE 10 MG TABLET PO (09:02)
[2017-03-27] MEDS: APIXABAN 5 MG TABLET. PO (09:02)
[2017-03-27] MEDS: FENOFIBRATE,MICRONIZED 134 MG CAPSULE PO (09:02)
[2017-03-27] MEDS: ASPIRIN ENTERIC COATED 81 MG TABLET.DR. PO (09:02)
[2017-03-27] MEDS: VENLAFAXINE 50 MG TABLET. PO (09:02)
[2017-03-27] MEDS: DIPHENHYDRAMINE/ZINC ACETATE 2%/0.1% TOPICAL CREAM 28GM TUBE. TP (09:03)
[2017-03-27] MEDS: LOSARTAN POTASSIUM 50 MG TABLET. PO (09:03)
[2017-03-27] MEDS: METOPROLOL SUCC 24HR ER 25 MG TAB.ER.24H. PO (09:03)
[2017-03-27] MEDS: INSULIN DETEMIR 300 UNITS/3 ML INSULN.PEN. SQ (09:11)
== END 2017-03-27 11:54 | disposition home or self-care (01) | DRG 871 ==
LOC: ER 02:33 → 2 SOUTH 04:30
PROC: 4A023N7 Measurement of Cardiac Sampling and Pressure, Left Heart, Percutaneous Approach (ICD-10-PCS; principal; 2017-03-22)
PROC: B2151ZZ Fluoroscopy of Left Heart using Low Osmolar Contrast (ICD-10-PCS; 2017-03-22)
PROC: B2111ZZ Fluoroscopy of Multiple Coronary Arteries using Low Osmolar Contrast (ICD-10-PCS; 2017-03-22)
DX: A41.9 Sepsis, unspecified organism (principal); I21.4 Non-ST elevation (NSTEMI) myocardial infarction; E11.00 Type 2 diabetes mellitus with hyperosmolarity without nonketotic hyperglycemic-hyperosmolar coma (NKHHC); G93.41 Metabolic encephalopathy; N17.9 Acute kidney failure, unspecified; J18.9 Pneumonia, unspecified organism; Z68.42 Body mass index [BMI] 45.0-49.9, adult; I13.0 Hypertensive heart and chronic kidney disease with heart failure and stage 1 through stage 4 chronic kidney disease, or unspecified chronic kidney disease; I50.32 Chronic diastolic (congestive) heart failure; J44.0 Chronic obstructive pulmonary disease with (acute) lower respiratory infection; D63.8 Anemia in other chronic diseases classified elsewhere; E11.22 Type 2 diabetes mellitus with diabetic chronic kidney disease; E11.610 Type 2 diabetes mellitus with diabetic neuropathic arthropathy; E11.649 Type 2 diabetes mellitus with hypoglycemia without coma; E66.01 Morbid (severe) obesity due to excess calories; E78.5 Hyperlipidemia, unspecified; E83.51 Hypocalcemia; E86.0 Dehydration; E87.5 Hyperkalemia; F17.210 Nicotine dependence, cigarettes, uncomplicated; I25.10 Atherosclerotic heart disease of native coronary artery without angina pectoris; I48.91 Unspecified atrial fibrillation; K21.9 Gastro-esophageal reflux disease without esophagitis; K52.9 Noninfective gastroenteritis and colitis, unspecified; L29.9 Pruritus, unspecified; M54.5 Low back pain; N18.3 Chronic kidney disease, stage 3 (moderate); Z79.01 Long term (current) use of anticoagulants; Z79.4 Long term (current) use of insulin; Z80.9 Family history of malignant neoplasm, unspecified; Z83.3 Family history of diabetes mellitus; Z85.038 Personal history of other malignant neoplasm of large intestine; Z90.49 Acquired absence of other specified parts of digestive tract; Z90.710 Acquired absence of both cervix and uterus; Z91.19 Patient's noncompliance with other medical treatment and regimen; Z95.5 Presence of coronary angioplasty implant and graft; Z82.49 Family history of ischemic heart disease and other diseases of the circulatory system
CPT/HCPCS: 36415; 71045; 73610; 73630; 73700; 78452; 80048; 80053; 80061; 81001; 82310; 82550; 82962; 83036; 83605; 83690; 83735; 83880; 84443; 84484; 85007; 85025; 85520; 85610; 85730; 87045; 87086; 87804; 87804-59; 93005; 93017; 93306; 93458; 93922; 94640; 94760; 96365; 96366; 96374; 96375; 96376; 97110-GP; 97116-GP; 97161-GP; 97166-GO; 97530-GP; 97535-GO; 99151; 99153; 99291; 99291-25; A9500; C1769; C1892; G0480; J0696; J1160; J1644; J1815; J2250; J2785; J3010; J3490; J7030; J7042; J7060; J7512; J7620; J7626; Q0144

== ENCOUNTER 2017-08-21 14:45 | Emergency (ER) | payer OTHER ==
[2017-08-21] MEDS: fentaNYL PF VIAL 100 MCG/2 ML VIAL IM (16:05)
[2017-08-21] MEDS: ONDANSETRON PF 4 MG/2 ML VIAL. IM (16:05)
== END 2017-08-21 18:40 | disposition home or self-care (01) ==
LOC: ER 14:45
DX: S49.91XA Unspecified injury of right shoulder and upper arm, initial encounter (principal); J44.9 Chronic obstructive pulmonary disease, unspecified; I50.9 Heart failure, unspecified; I25.10 Atherosclerotic heart disease of native coronary artery without angina pectoris; J98.4 Other disorders of lung; M19.90 Unspecified osteoarthritis, unspecified site; W01.0XXA Fall on same level from slipping, tripping and stumbling without subsequent striking against object, initial encounter; Y93.89 Activity, other specified; Y99.8 Other external cause status; Y92.89 Other specified places as the place of occurrence of the external cause
CPT/HCPCS: 70450; 71045; 72125; 72170; 73030; 73080; 96372; 99284; J2405; J3010

== ENCOUNTER 2017-10-23 19:11 | Inpatient (IN) | payer OTHER ==
[~2017-10-23] VITALS: Ht 162.6 cm; Wt 108.9 kg
[~2017-10-23 19:11] MED LIST: ALBU8.5H6 INH; ALEN70TA3 PO; AMIO200T4 PO; APIX5TAB PO; ASPI-482 PO; ASPI-612 PO; BACI1PAC4 TP; BYSTOLIC10 MG PO; CLON2TAB9 PO; COLE1TAB PO; CRESTOR40 MG PO; DICL100G18 TP; ERGO500027 PO; FENO135C PO; FENO135C2 PO; FERR324T2 PO; FLUT1DIS3 IH; FURO40TA4 PO; INSU100I13 SQ; INSU100I17 SQ; INSU100V8 SQ; IPRA3AMP29 IH; ISOS30TA4 PO; LACT1CAP19 PO; LEVO150T5 PO; LIPITOR80 MG PO; LORA10TA3 PO; LOSA100T6 PO; LOSA50TA2 PO; LOSA50TA6 PO; METO-239 PO; NITR0.4T SL; OXYB5TAB7 PO; PANT40TA5 PO; POLY17PO3 PO; POTA20TA82 PO; PRED-220 PO; PRED20TA PO; RANI150T2 PO; SENN1TAB15 PO; SENN1TAB7 PO; TRAZ-86 PO; VENL150C PO; VENL150C6 PO; VENTOLIN HFA18 GM INH; WARF-31 PO
[2017-10-23] MEDS ORDERED: ATROPINE 1 MG/10 ML DISP.SYRINGE. IV ONE ×2 (19:15→20:30)
[2017-10-23] MEDS ORDERED: ASPIRIN 325 MG TABLET PO ONE (19:15)
[2017-10-23] MEDS ORDERED: IV NORMAL SALINE 1000ML BAG 1,000 ML IV ONE (19:30)
[2017-10-23 20:08] LABS: BASO % 1 % (0-3); EOS % 1 % (0-3); HEMATOCRIT 30.4 % (36.0-47.0); HEMOGLOBIN 10.4 g/dL (12.0-15.5); LYMPH # 1.3 x10^3/uL (1.0-4.8); LYMPH % 17 % (24-48); MEAN CORPUSCULAR HEMOGLOBIN 31 pg (25-35); MEAN CORPUSCULAR HGB CONC 34 g/dL (31-37); MEAN CORPUSCULAR VOLUME 91 fL (79-100); MONO # 0.8 x10^3/uL (0.0-1.1); MONO % 10 % (0-9); NEUT # 5.6 x10^3uL (1.8-7.7); NEUT % 72 % (31-73); PLATELET COUNT 176 x10^3/uL (140-400); RED BLOOD COUNT 3.36 x10^6/uL (3.50-5.40); RED CELL DISTRIBUTION WIDTH 15.8 % (11.5-14.5); WHITE BLOOD COUNT 7.7 x10^3/uL (4.0-11.0)
[2017-10-23 20:21] LABS: CALCIUM 8.4 mg/dL (8.5-10.1); CREATININE 3.7 mg/dL (0.6-1.0); GFR 12.1; POTASSIUM 5.9 mmol/L (3.5-5.1)
[2017-10-23 20:27] LABS: ALBUMIN 2.8 g/dL (3.4-5.0); ALBUMIN/GLOBULIN RATIO 0.7 (1.0-1.7); TOTAL BILIRUBIN 0.2 mg/dL (0.2-1.0); TOTAL PROTEIN 6.6 g/dL (6.4-8.2)
--- NOTE | 2017-10-23 20:31 | EKG ---
[facility] [address] [place] [address] Test Date: 2017-10-23 Test Time: 19:11:18 Pat Name: HERBERT LERNER Department: Room: Gender: Female Forms Analyst: : [id number] Requested By: FAB MARIA Order Number: [id number] Reading MD: Juan C Leyva MD Measurements Intervals [place] Rate: 31 P: AL: QRS: -24 QRSD: 98 T: 59 QT: 510 QTc: 370 Interpretive Statements PROBABLE COMPLETE HEART BLOCK VERSUS SEVERE JUNCTIONAL RHYTHM Electronically Signed On 10-25-2017 10:05:13 CDT by Juan C Leyva MD
[2017-10-23 20:33] LABS: CREATINE KINASE 57 U/L (26-192)
--- NOTE | 2017-10-23 20:37 | RAD ---
PQRS Compliance statement: One or more of the following individualized dose reduction techniques were utilized for this examination: 1. Automated exposure control. 2. Adjustment of the mA and/or kV according to patient size. 3. Use of iterative reconstruction technique. Indication:weakness, frequent falls, no priors TECHNIQUE: CT head without IV contrast COMPARISON:08/21/2017 FINDINGS: No pathologic extra-axial or intra-axial fluid collection. The ventricles and basal cisterns are within normal limits. No acute intracranial bleed. No focal loss of bermudez-white differentiation. Visualized orbits are within normal limits. No calvarial fractures. Visualized paranasal sinuses and mastoid air cells are clear. IMPRESSION: No acute intracranial process. Indication:weakness, frequent falls, no priors TECHNIQUE: CT of the cervical spine without IV contrast with multiplanar reformats. COMPARISON:08/21/2017 FINDINGS: Status post fusion of C4-C7 vertebral bodies with focal reversal of the cervical lordosis. Atlantoaxial joint interval is preserved with moderate degenerative changes. No compression deformities. Facet joints are in normal anatomic alignment. No acute fractures. The visualized soft tissues through the neck are within normal limits. Visualized lung apices are clear. IMPRESSION: No acute cervical spine fractures. Electronically signed by: Emeterio Sauceda DO (10/23/2017 8:34 PM) [facility]
--- NOTE | 2017-10-23 21:24 | PHYS DOC ---
Past Medical History Past Medical History: A-Fib, Diabetes-Type II, High Cholesterol, Hypertension, Hypothyroid, HI Additional Past Medical Histor: CELLULITIS, PANCYTOPENIA Past Surgical History: Cholecystectomy, Hysterectomy, Other Additional Past Surgical Histo: STENTSx2 Alcohol Use: None Drug Use: None Adult General Chief Complaint Chief Complaint: WEAKNESS/GENERALIZED HPI HPI 67-year-old female presents via EMS with generalized weakness times one week. Patient denies any chest pain or shortness of breath. Patient does report near syncopal episode. Reports worse upon standing. Patient noted to be severely bradycardic upon EMS arrival with heart rate down to 34bpm. Patient does report history of atrial fibrillation for which she takes metoprolol and amiodarone. Patient reports losing her balance tonight with reported fall backward. Denies LOC. Reports some neck discomfort. Review of Systems Review of Systems Constitutional: Denies fever or chills [] Eyes: Denies change in visual acuity, redness, or eye pain [] HENT: Denies nasal congestion or sore throat [] Respiratory: Denies cough or shortness of breath [] Cardiovascular: Denies chest pain or palpitations GI: Denies abdominal pain, nausea, vomiting, or diarrhea [] : Denies dysuria or hematuria [] Musculoskeletal: Denies back pain or joint pain; reports some neck discomfort Integument: Denies rash or skin lesions [] Neurologic: Denies headache, focal weakness or sensory changes; reports dizziness Complete systems were reviewed and found to be within normal limits, except as documented in this note. Current Medications Current Medications Current Medications Medications (Trade) Dose Ordered Sig/[facility] Start Time Stop Time Status Last Admin Dose Admin Aspirin (Ana Aspirin) 325 mg 1X ONCE 10/23/17 19:15 10/23/17 19:23 DC 10/23/17 19:24 325 MG Atropine Sulfate (ATROPINE 1mg SYRINGE) 1 mg 1X ONCE 10/23/17 20:30 10/23/17 20:31 DC 10/23/17 20:36 1 MG Sodium Chloride 1,000 ml @ 1,000 mls/hr 1X ONCE 10/23/17 19:30 10/23/17 20:29 DC 10/23/17 19:24 1,000 MLS/HR Allergies Allergies Allergies Coded Allergies Type Severity Reaction Last Updated Verified No Known Drug Allergies 05/16/15 No Physical Exam Physical Exam Constitutional: Well developed, well nourished, no acute distress, non-toxic appearance. [] HENT: Normocephalic, atraumatic, oropharynx moist Eyes: PERRL, EOMI, conjunctiva normal, no discharge. [] Neck: Normal range of motion, supple, no meningeal signs; no midline cervical spine tenderness, paraspinal tenderness noted Cardiovascular: Significant bradycardia noted, irregular rhythm, no murmur [] Lungs & Thorax: Bilateral breath sounds clear to auscultation [] Abdomen: Soft, no tenderness, no masses, no pulsatile masses. [] Skin: Warm, dry, no erythema, no rash. [] Back: No tenderness, no CVA tenderness. [] Extremities: No tenderness, ROM intact, no edema. [] Neurologic: Alert and oriented X 3, normal motor function, normal sensory function, no focal deficits noted. [] Psychologic: Affect normal, judgement normal, mood normal. [] Current Patient Data Vital Signs Vital Signs Date Time Temp Pulse Resp B/P (MAP) Pulse Ox O2 Delivery O2 Flow Rate FiO2 10/23/17 20:40 36 18 100 10/23/17 19:26 97.7 119/56 (77) Nasal Cannula 3.0 97.7 Lab Values Laboratory Tests Test 10/23/17 20:00 White Blood Count 7.7 x10^3/uL (4.0-11.0) Red Blood Count 3.36 x10^6/uL (3.50-5.40) L Hemoglobin 10.4 g/dL (12.0-15.5) L Hematocrit 30.4 % (36.0-47.0) L Mean Corpuscular Volume 91 fL (79-100) Mean Corpuscular Hemoglobin 31 pg (25-35) Mean Corpuscular Hemoglobin Concent 34 g/dL (31-37) Red Cell Distribution Width 15.8 % (11.5-14.5) H Platelet Count 176 x10^3/uL (140-400) Neutrophils (%) (Auto) 72 % (31-73) Lymphocytes (%) (Auto) 17 % (24-48) L Monocytes (%) (Auto) 10 % (0-9) H Eosinophils (%) (Auto) 1 % (0-3) Basophils (%) (Auto) 1 % (0-3) Neutrophils # (Auto) 5.6 x10^3uL (1.8-7.7) Lymphocytes # (Auto) 1.3 x10^3/uL (1.0-4.8) Monocytes # (Auto) 0.8 x10^3/uL (0.0-1.1) Eosinophils # (Auto) 0.0 x10^3/uL (0.0-0.7) Basophils # (Auto) 0.0 x10^3/uL (0.0-0.2) Sodium Level 129 mmol/L (136-145) L Potassium Level 5.9 mmol/L (3.5-5.1) H Chloride Level 96 mmol/L (98-107) L Carbon Dioxide Level 26 mmol/L (21-32) Anion Gap 7 (6-14) Blood Urea Nitrogen 52 mg/dL (7-20) H Creatinine 3.7 mg/dL (0.6-1.0) H Estimated GFR (Cockcroft-Gault) 12.1 BUN/Creatinine Ratio 14 (6-20) Glucose Level 285 mg/dL (70-99) H Calcium Level 8.4 mg/dL (8.5-10.1) L Magnesium Level 2.0 mg/dL (1.8-2.4) Total Bilirubin 0.2 mg/dL (0.2-1.0) Aspartate Amino Transferase (AST) 23 U/L (15-37) Alanine Aminotransferase (ALT) 33 U/L (14-59) Alkaline Phosphatase 101 U/L (46-116) Creatine Kinase 57 U/L (26-192) Creatine Kinase MB (Mass) 0.7 ng/mL (0.0-3.6) Creatine Kinase MB Relative Index % (0-4) Troponin I Quantitative < 0.017 ng/mL (0.000-0.055) Total Protein 6.6 g/dL (6.4-8.2) Albumin 2.8 g/dL (3.4-5.0) L Albumin/Globulin Ratio 0.7 (1.0-1.7) L Laboratory Tests 10/23/17 20:00 Laboratory Tests 10/23/17 20:00 EKG EKG @1911: Severe bradycardia, Afib, NO ST elevation Radiology/Procedures Radiology/Procedures PROCEDURE: CT HEAD AND CERVICAL SPINE WO PQRS Compliance statement: One or more of the following individualized dose reduction techniques were utilized for this examination: 1. Automated exposure control. 2. Adjustment of the mA and/or kV according to patient size. 3. Use of iterative reconstruction technique. Indication:weakness, frequent falls, no priors TECHNIQUE: CT head without IV contrast COMPARISON:08/21/2017 FINDINGS: No pathologic extra-axial or intra-axial fluid collection. The ventricles and basal cisterns are within normal limits. No acute intracranial bleed. No focal loss of bermudez-white differentiation. Visualized orbits are within normal limits. No calvarial fractures. Visualized paranasal sinuses and mastoid air cells are clear. IMPRESSION: No acute intracranial process. Indication:weakness, frequent falls, no priors TECHNIQUE: CT of the cervical spine without IV contrast with multiplanar reformats. COMPARISON:08/21/2017 FINDINGS: Status post fusion of C4-C7 vertebral bodies with focal reversal of the cervical lordosis. Atlantoaxial joint interval is preserved with moderate degenerative changes. No compression deformities. Facet joints are in normal anatomic alignment. No acute fractures. The visualized soft tissues through the neck are within normal limits. Visualized lung apices are clear. IMPRESSION: No acute cervical spine fractures. Electronically signed by: Emeterio Sauceda DO (10/23/2017 8:34 PM) [facility] CXR: (preliminary interpretation by ED physician) No acute process. Course & Med Decision Making Course & Med Decision Making Pertinent Labs and Imaging studies reviewed. (See chart for details) Patient presents with report of near syncopal episode tonight with progressive weakness times one week. Significant bradycardia noted. EKG with A. fib with slow ventricular response. Atropine trialed at 0.5 and 1 mg with limited improvement. Labs obtained and posted to chart. Troponin within normal limits. Hyperkalemia noted. Acute on chronic renal insufficiency noted. Calcium gluconate, insulin, and dextrose provided. CT head without acute process. Chest x-ray clear. Patient requiring admission for further evaluation and treatment. Discussed with Dr. Leigh (hospitalist) who is in agreement with admission. Discussed findings and plan with patient, who acknowledges understanding and agreement. Dragon Disclaimer Dragon Disclaimer This electronic medical record was generated, in whole or in part, using a voice recognition dictation system. Departure Departure Impression: Primary Impression: Bradycardia Additional Impressions: Atrial fibrillation with slow ventricular response Hyperkalemia Hyponatremia Acute on chronic renal insufficiency Hyperglycemia Disposition: 09 ADMITTED INPATIENT Admitting Physician: Robles Leigh Condition: CRITICAL Referrals: STEFANO PENA IMPORT AND EXPORT CLERK (PCP) Critical Care Time Critical care time was 30-74 minutes which includes time at bedside, spent in discussion of patient's care with specialists and/or family members, with interpretation of laboratory and/or radiological studies and is exclusive of procedures. Problem Qualifiers FAB MARIA DO Oct 23, 2017 21:24
[2017-10-23] MEDS ORDERED: INSULIN REGULAR 100 UNIT/ML 3ML VIAL. IV ONE (21:30)
[2017-10-23] MEDS ORDERED: DEXTROSE 50% 25 GM / 50ML DISP.SYRIN. IV ONE (21:30)
[2017-10-23] MEDS ORDERED: DEXTROSE 50% 25 GM / 50ML DISP.SYRIN. IV PRN (21:30)
[2017-10-23] MEDS ORDERED: CALCIUM GLUCONATE 1,000 MG in IV DEXTROSE 5% 100ML 100 ML IV ONE (21:30)
[2017-10-23 22:00] VITALS: BP 149/51
[2017-10-23 22:15] VITALS: BP 152/54
[2017-10-23 22:30] VITALS: BP 150/61
[2017-10-23 23:00] VITALS: BP 151/48
[2017-10-23 23:30] VITALS: BP 153/54
[2017-10-24] VITALS (24 sets, daily range): BP systolic 97–196; BP diastolic 46–111
[2017-10-24] MEDS: IV NORMAL SALINE 1000ML BAG 1,000 ML IV SCH ×2 (02:12→17:34)
[2017-10-24] MEDS: INSULIN LISPRO 300 UNITS/3 ML INSULN.PEN. SQ SCH ×6 (08:09→17:36)
[2017-10-24] MEDS: INSULIN GLARGINE 300 UNITS/3 ML INSULN.PEN. SQ SCH ×2 (08:37→21:10)
--- NOTE | 2017-10-24 09:04 | RAD ---
EXAM: Portable semiupright AP chest DATE: 10/23/2017 7:37 PM INDICATION: WEAKNESS, COUGH COMPARISON: 08/21/2017 FINDINGS: The heart is mildly enlarged. Atherosclerotic calcifications of aorta are seen. Mediastinal and hilar contours are otherwise normal. No focal parenchymal airspace opacity. No pleural effusion or pneumothorax. IMPRESSION: 1. No radiographic evidence for acute cardiopulmonary process. Electronically signed by: Logan Paniagua MD (10/24/2017 9:00 AM) [facility]
[2017-10-24 09:30] LABS: ALBUMIN 2.8 g/dL (3.4-5.0); ALBUMIN/GLOBULIN RATIO 0.8 (1.0-1.7); CALCIUM 8.3 mg/dL (8.5-10.1); CREATININE 2.9 mg/dL (0.6-1.0); GFR 16.1; POTASSIUM 5.9 mmol/L (3.5-5.1); TOTAL BILIRUBIN 0.2 mg/dL (0.2-1.0); TOTAL PROTEIN 6.2 g/dL (6.4-8.2)
[2017-10-24 09:47] LABS: BASO % 0 % (0-3); EOS % 1 % (0-3); HEMATOCRIT 31.7 % (36.0-47.0); HEMOGLOBIN 10.8 g/dL (12.0-15.5); LYMPH # 1.1 x10^3/uL (1.0-4.8); LYMPH % 14 % (24-48); MEAN CORPUSCULAR HEMOGLOBIN 31 pg (25-35); MEAN CORPUSCULAR HGB CONC 34 g/dL (31-37); MEAN CORPUSCULAR VOLUME 91 fL (79-100); MONO # 0.8 x10^3/uL (0.0-1.1); MONO % 10 % (0-9); NEUT # 6.2 x10^3uL (1.8-7.7); NEUT % 76 % (31-73); PLATELET COUNT 165 x10^3/uL (140-400); RED CELL DISTRIBUTION WIDTH 16.1 % (11.5-14.5); WHITE BLOOD COUNT 8.2 x10^3/uL (4.0-11.0)
[2017-10-24 11:40] LABS: DIG < 0.2 ng/mL (0.9-2.0)
--- NOTE | 2017-10-24 12:10 | PDOC2 ---
CONSULT Date of Consult Date of Consult DATE: 10/24/17 TIME: 12:09 Reason for Consult Reason for Consult: Bradycardia Referring Physician Referring Physician: Dr. Boswell Identification/Chief Complaint Chief Complaint Weakness Source Source: Chart review, Patient History of Present Illness Reason for Visit: 67 y/o female with history of CAD and paroxysmal atrial fibrillation presented with generalized weakness, fatigue and intermittent dizzy spells and was found to have atrial fibrillation with very slow ventricular rates in 30's. She denied any efra syncope. She also denied any chest pain, orthopnea/PND or palpitations. She usually sees Dr. Eden from [facility]. Past Medical History Cardiovascular: AFIB, CAD, VA, Hyperlipidemia Pulmonary: COPD GI: GERD Heme/Onc: Cancer Hepatobiliary: No pertinent hx Psych: No pertinent hx Rheumatologic: No pertinent hx Infectious disease: No pertinent hx Renal/: Chronic renal insuff, Urinary Incontinence Endocrine: Diabetes Past Surgical History Past Surgical History: Appendectomy, Cholecystectomy, Hysterectomy, Other Family History Family History: Diabetes, Heart Disease Social History ALCOHOL: none Drugs: None Lives: Alone Current Problem List Problem List Problems Medical Problems: (1) Acute on chronic renal insufficiency Status: Acute (2) Atrial fibrillation with slow ventricular response Status: Acute (3) Bradycardia Status: Acute (4) Hyperglycemia Status: Acute (5) Hyperkalemia Status: Acute (6) Hyponatremia Status: Acute Current Medications Current Medications Current Medications Aspirin (Ana Aspirin) 325 mg 1X ONCE PO Last administered on 10/23/17at 19:24 ; Start 10/23/17 at 19:15; Stop 10/23/17 at 19:23; Status DC Atropine Sulfate (ATROPINE 1mg SYRINGE) 0.5 mg 1X ONCE IV Last administered on 10/23/17at 19:16; Start 10/23/17 at 19:15; Stop 10/23/17 at 19:23; Status DC Sodium Chloride 1,000 ml @ 1,000 mls/hr 1X ONCE IV Last administered on at 19:24; Start 10/23/17 at 19:30; Stop 10/23/17 at 20:29; Status DC Atropine Sulfate (ATROPINE 1mg SYRINGE) 1 mg 1X ONCE IV Last administered on at 20:36; Start 10/23/17 at 20:30; Stop 10/23/17 at 20:31; Status DC Calcium Gluconate 1000 mg/Dextrose 110 ml @ 220 mls/hr 1X ONCE IV Last administered on 10/23/17at 21:26; Start 10/23/17 at 21:30; Stop 10/23/17 at 21:59 ; Status DC Insulin Human Regular (HumuLIN R VIAL) 10 unit 1X ONCE IV Last administered on 10/23/17at 21:25; Start 10/23/17 at 21:30; Stop 10/23/17 at 21:31; Status DC Dextrose (Dextrose 50%-Water Syringe) 25 gm 1X ONCE IV Last administered on at 21:26; Start 10/23/17 at 21:30; Stop 10/23/17 at 21:31; Status DC Insulin Human Lispro (HumaLOG) 0-5 UNITS TIDWMEALS SQ Last administered on 10/24at 08:09; Start 10/24/17 at 08:00 Dextrose (Dextrose 50%-Water Syringe) 12.5 gm PRN Q15MIN PRN IV SEE COMMENTS; Start 10/23/17 at 21:30 Sodium Chloride 1,000 ml @ 50 mls/hr Q20H IV Last administered on 10/24/17at 02 :12; Start 10/24/17 at 00:15 Insulin Human Lispro (HumaLOG) 20 units TIDAC SQ Last administered on at 08:36; Start 10/24/17 at 08:30 Insulin Glargine (Lantus) 40 units BID SQ Last administered on 10/24/17at 08:37 ; Start 10/24/17 at 09:00 Active Scripts Active Colestid (Colestipol Hcl) 1 Gm Tablet 2 Gm PO DAILY10 Culturelle (Lactobacillus Rhamnosus Gg) 1 Each Cap.sprink 1 Cap PO BID Reported Oxybutynin Chloride 5 Mg Tablet 5 Mg PO TID Lipitor (Atorvastatin Calcium) 80 Mg Tablet 80 Mg PO HS Levothyroxine Sodium 150 Mcg Tablet 1 Tab PO DAILY Isosorbide Mononitrate Er (Isosorbide Mononitrate) 30 Mg Tab.er.24h 1 Tab PO DAILY Fosamax (Alendronate Sodium) 70 Mg Tablet 1 Tab PO WEEKLY Eliquis (Apixaban) 5 Mg Tablet 5 Mg PO BID Voltaren (Diclofenac Sodium) 100 Gm Gel..gram. 1 Gm TP PRN QID PRN Bacitracin 1 Each Packet 1 Each TP PRN Aspir 81 (Aspirin) 81 Mg Tablet.dr 1 Tab PO DAILY Lantus (Insulin Glargine,Hum.rec.anlog) 100 Unit/1 Ml Vial 50 Unit SQ BID MAY INCREASE FOR BLOOD SUGARS GREATER THAN 200 FASTING Advair 250-50 Diskus (Fluticasone/Salmeterol) 1 Each Disk.w.dev 1 Inh IH BID Duoneb 0.5-3(2.5) Mg/3 Ml (Albuterol/Ipratropium) 3 Ml Ampul.neb 3 Ml IH QID Ventolin Hfa Inhaler (Albuterol Sulfate) 18 Gm Hfa.aer.ad 2 Puff INH Q4HRS PRN Amiodarone Hcl 200 Mg Tablet 200 Mg PO BID Venlafaxine Hcl Er (Venlafaxine Hcl) 150 Mg Cap.er.24h 150 Mg PO DAILY Novolog Flexpen (Insulin Aspart) 100 Unit/1 Ml Insuln.pen 30 Unit SQ TIDAC Vitamin D2 (Ergocalciferol (Vitamin D2)) 50,000 Unit Capsule 50,000 Unit PO TWICE WEEKLY Fenofibric Acid (Fenofibric Acid (Choline)) 135 Mg Capsule.dr 135 Mg PO DAILY Potassium Chloride 20 Meq Tablet.er 20 Meq PO DAILY Furosemide 40 Mg Tablet 40 Mg PO BID94 Prednisone 10 Mg Tablet 10 Mg PO DAILY Metoprolol Succinate ( Xl ) (Metoprolol Succinate) 25 Mg Tab.er.24h 25 Mg PO DAILY Losartan Potassium 50 Mg Tablet 50 Mg PO DAILY Pantoprazole Sodium 40 Mg Tablet.dr 40 Mg PO DAILY Trazodone Hcl 100 Mg Tablet 200 Mg PO HS Allergies Allergies: Coded Allergies: No Known Drug Allergies (Unverified , 05/16/15) ROS General: YES: Fatigue, Malaise PSYCHOLOGICAL ROS: No: Hallucinations Eyes: No Loss of vision HEENT: No: Epistaxis Respiratory: No: Hemoptysis, Shortness of breath Cardiovascular: No Chest Pain, No Palpitations Gastrointestinal: No Vomiting Genitourinary: No Hematuria Neurological: No Seizures Skin: No Rash Physical Exam General: Alert, No acute distress HEENT: Atraumatic, PERRLA Lungs: Clear to auscultation Heart: Regular rate Abdomen: Soft Extremities: Other Psych/Mental Status: Mood NL Vitals VITALS Vital Signs Date Time Temp Pulse Resp B/P (MAP) Pulse Ox O2 Delivery O2 Flow Rate FiO2 10/24/17 10:00 39 20 172/65 (100) 96 Nasal Cannula 3.0 10/24/17 08:00 98.5 98.5 Labs Labs Laboratory Tests Test 10/23/17 20:00 10/24/17 00:30 10/24/17 08:04 10/24/17 08:45 White Blood Count 7.7 x10^3/uL (4.0-11.0) 8.2 x10^3/uL (4.0-11.0) Red Blood Count 3.36 x10^6/uL (3.50-5.40) 3.50 x10^6/uL (3.50-5.40) Hemoglobin 10.4 g/dL (12.0-15.5) 10.8 g/dL (12.0-15.5) Hematocrit 30.4 % (36.0-47.0) 31.7 % (36.0-47.0) Mean Corpuscular Volume 91 fL (79-100) 91 fL (79-100) Mean Corpuscular Hemoglobin 31 pg (25-35) 31 pg (25-35) Mean Corpuscular Hemoglobin Concent 34 g/dL (31-37) 34 g/dL (31-37) Red Cell Distribution Width 15.8 % (11.5-14.5) 16.1 % (11.5-14.5) Platelet Count 176 x10^3/uL (140-400) 165 x10^3/uL (140-400) Neutrophils (%) (Auto) 72 % (31-73) 76 % (31-73) Lymphocytes (%) (Auto) 17 % (24-48) 14 % (24-48) Monocytes (%) (Auto) 10 % (0-9) 10 % (0-9) Eosinophils (%) (Auto) 1 % (0-3) 1 % (0-3) Basophils (%) (Auto) 1 % (0-3) 0 % (0-3) Neutrophils # (Auto) 5.6 x10^3uL (1.8-7.7) 6.2 x10^3uL (1.8-7.7) Lymphocytes # (Auto) 1.3 x10^3/uL (1.0-4.8) 1.1 x10^3/uL (1.0-4.8) Monocytes # (Auto) 0.8 x10^3/uL (0.0-1.1) 0.8 x10^3/uL (0.0-1.1) Eosinophils # (Auto) 0.0 x10^3/uL (0.0-0.7) 0.0 x10^3/uL (0.0-0.7) Basophils # (Auto) 0.0 x10^3/uL (0.0-0.2) 0.0 x10^3/uL (0.0-0.2) Sodium Level 129 mmol/L (136-145) 129 mmol/L (136-145) Potassium Level 5.9 mmol/L (3.5-5.1) 5.9 mmol/L (3.5-5.1) Chloride Level 96 mmol/L (98-107) 96 mmol/L (98-107) Carbon Dioxide Level 26 mmol/L (21-32) 22 mmol/L (21-32) Anion Gap 7 (6-14) 11 (6-14) Blood Urea Nitrogen 52 mg/dL (7-20) 52 mg/dL (7-20) Creatinine 3.7 mg/dL (0.6-1.0) 2.9 mg/dL (0.6-1.0) Estimated GFR (Cockcroft-Gault) 12.1 16.1 BUN/Creatinine Ratio 14 (6-20) 18 (6-20) Glucose Level 285 mg/dL (70-99) 328 mg/dL (70-99) Calcium Level 8.4 mg/dL (8.5-10.1) 8.3 mg/dL (8.5-10.1) Magnesium Level 2.0 mg/dL (1.8-2.4) Total Bilirubin 0.2 mg/dL (0.2-1.0) 0.2 mg/dL (0.2-1.0) Aspartate Amino Transf (AST/SGOT) 23 U/L (15-37) 23 U/L (15-37) Alanine Aminotransferase (ALT/SGPT) 33 U/L (14-59) 35 U/L (14-59) Alkaline Phosphatase 101 U/L (46-116) 109 U/L (46-116) Creatine Kinase 57 U/L (26-192) Creatine Kinase MB (Mass) 0.7 ng/mL (0.0-3.6) Creatine Kinase MB Relative Index % (0-4) Troponin I Quantitative < 0.017 ng/mL (0.000-0.055) < 0.017 ng/mL (0.000-0.055) < 0.017 ng/mL (0.000-0.055) Total Protein 6.6 g/dL (6.4-8.2) 6.2 g/dL (6.4-8.2) Albumin 2.8 g/dL (3.4-5.0) 2.8 g/dL (3.4-5.0) Albumin/Globulin Ratio 0.7 (1.0-1.7) 0.8 (1.0-1.7) Glucose (Fingerstick) 301 mg/dL (70-99) Thyroid Stimulating Hormone (TSH) 5.487 uIU/mL (0.358-3.74) Digoxin Level < 0.2 ng/mL (0.9-2.0) Digoxin Last Dose Date Unknown Digoxin Last Dose Time Unknown Test 10/24/17 11:31 Glucose (Fingerstick) 219 mg/dL (70-99) Laboratory Tests Test 10/23/17 20:00 10/24/17 00:30 10/24/17 08:04 10/24/17 08:45 White Blood Count 7.7 x10^3/uL (4.0-11.0) 8.2 x10^3/uL (4.0-11.0) Red Blood Count 3.36 x10^6/uL (3.50-5.40) 3.50 x10^6/uL (3.50-5.40) Hemoglobin 10.4 g/dL (12.0-15.5) 10.8 g/dL (12.0-15.5) Hematocrit 30.4 % (36.0-47.0) 31.7 % (36.0-47.0) Mean Corpuscular Volume 91 fL (79-100) 91 fL (79-100) Mean Corpuscular Hemoglobin 31 pg (25-35) 31 pg (25-35) Mean Corpuscular Hemoglobin Concent 34 g/dL (31-37) 34 g/dL (31-37) Red Cell Distribution Width 15.8 % (11.5-14.5) 16.1 % (11.5-14.5) Platelet Count 176 x10^3/uL (140-400) 165 x10^3/uL (140-400) Neutrophils (%) (Auto) 72 % (31-73) 76 % (31-73) Lymphocytes (%) (Auto) 17 % (24-48) 14 % (24-48) Monocytes (%) (Auto) 10 % (0-9) 10 % (0-9) Eosinophils (%) (Auto) 1 % (0-3) 1 % (0-3) Basophils (%) (Auto) 1 % (0-3) 0 % (0-3) Neutrophils # (Auto) 5.6 x10^3uL (1.8-7.7) 6.2 x10^3uL (1.8-7.7) Lymphocytes # (Auto) 1.3 x10^3/uL (1.0-4.8) 1.1 x10^3/uL (1.0-4.8) Monocytes # (Auto) 0.8 x10^3/uL (0.0-1.1) 0.8 x10^3/uL (0.0-1.1) Eosinophils # (Auto) 0.0 x10^3/uL (0.0-0.7) 0.0 x10^3/uL (0.0-0.7) Basophils # (Auto) 0.0 x10^3/uL (0.0-0.2) 0.0 x10^3/uL (0.0-0.2) Sodium Level 129 mmol/L (136-145) 129 mmol/L (136-145) Potassium Level 5.9 mmol/L (3.5-5.1) 5.9 mmol/L (3.5-5.1) Chloride Level 96 mmol/L (98-107) 96 mmol/L (98-107) Carbon Dioxide Level 26 mmol/L (21-32) 22 mmol/L (21-32) Anion Gap 7 (6-14) 11 (6-14) Blood Urea Nitrogen 52 mg/dL (7-20) 52 mg/dL (7-20) Creatinine 3.7 mg/dL (0.6-1.0) 2.9 mg/dL (0.6-1.0) Estimated GFR (Cockcroft-Gault) 12.1 16.1 BUN/Creatinine Ratio 14 (6-20) 18 (6-20) Glucose Level 285 mg/dL (70-99) 328 mg/dL (70-99) Calcium Level 8.4 mg/dL (8.5-10.1) 8.3 mg/dL (8.5-10.1) Magnesium Level 2.0 mg/dL (1.8-2.4) Total Bilirubin 0.2 mg/dL (0.2-1.0) 0.2 mg/dL (0.2-1.0) Aspartate Amino Transf (AST/SGOT) 23 U/L (15-37) 23 U/L (15-37) Alanine Aminotransferase (ALT/SGPT) 33 U/L (14-59) 35 U/L (14-59) Alkaline Phosphatase 101 U/L (46-116) 109 U/L (46-116) Creatine Kinase 57 U/L (26-192) Creatine Kinase MB (Mass) 0.7 ng/mL (0.0-3.6) Creatine Kinase MB Relative Index % (0-4) Troponin I Quantitative < 0.017 ng/mL (0.000-0.055) < 0.017 ng/mL (0.000-0.055) < 0.017 ng/mL (0.000-0.055) Total Protein 6.6 g/dL (6.4-8.2) 6.2 g/dL (6.4-8.2) Albumin 2.8 g/dL (3.4-5.0) 2.8 g/dL (3.4-5.0) Albumin/Globulin Ratio 0.7 (1.0-1.7) 0.8 (1.0-1.7) Glucose (Fingerstick) 301 mg/dL (70-99) Thyroid Stimulating Hormone (TSH) 5.487 uIU/mL (0.358-3.74) Digoxin Level < 0.2 ng/mL (0.9-2.0) Digoxin Last Dose Date Unknown Digoxin Last Dose Time Unknown Test 10/24/17 11:31 Glucose (Fingerstick) 219 mg/dL (70-99) Assessment/Plan Assessment/Plan 1. Atrial fibrillation with very slow ventricular rate on admission. Presently in sinus rhythm. Hold metoprolol and amiodarone and monitor. If she has any further bradycardic episodes off these meds, we will consider permanent pacemaker implantation. Hold eliquis till workup is completed. 2D echo 03/2017 showed normal LV function. 2. CAD s/p PCI/stent LAD/RCA: cardiac cath 03/2017 showed patent stents. She is stable and chest pain free. 3. Acute on chronic renal insufficiency, hyponatremia: nephrology consultation 4. HTN: controlled 5. HLP: statins 6. DM-2: Treat per IM Thank you for your consultation RAND GOLDEN MD Oct 24, 2017 12:10
[2017-10-24] MEDS ORDERED: SODIUM POLYSTYRENE SULFONATE 15 GM/60 ML ORAL.SUSP. PO ONE (13:00)
[2017-10-24] MEDS ORDERED: FERR325T14 PO (14:54)
[2017-10-24] MEDS ORDERED: COLE1TAB2 PO (14:54)
[2017-10-24] MEDS ORDERED: GABA-585 PO (14:54)
--- NOTE | 2017-10-24 15:16 | HP ---
ADMIT DATE: 10/24/2017 CHIEF COMPLAINT: Weakness. HISTORY OF PRESENT ILLNESS: The patient is a pleasant 67-year-old female who presented to the ER with weakness. It has been occurring for a week. It has been getting worse over the past week. She has associated bradycardia, states her heart rate got down to 34. She has been losing her balance. She even fell backwards. She does have some neck discomfort as well. I have discussed the case with ER physician. We suspect the patient has symptomatic bradycardia. We are going to admit the patient and consult Cardiology. It should be noted that the patient does have atrial fibrillation here in the ER, even though she is bradycardic. PAST MEDICAL HISTORY: AFib, diabetes, hypertension, hyperlipidemia, hypothyroidism, cellulitis, pancytopenia, cholecystectomy, hysterectomy, cardiac stents x 2, polypharmacy, asthma, chronic anticoagulation, hypertension, arthritis, insomnia, constipation. ALLERGIES: None. FAMILY HISTORY: Diabetes. SOCIAL HISTORY: She does not drink, smoke or take drugs. MEDICATIONS: Reviewed. She is on 27. Please refer to the MRAD. REVIEW OF SYSTEMS: GENERAL: She complains of weakness. SKIN: No bruising, hair changes or rashes. EYES: No blurred, double or loss of vision. NOSE AND THROAT: No history of nosebleeds, hoarseness or sore throat. HEART: No history of palpitations, chest pain or shortness of breath on exertion. LUNGS: Denies cough, hemoptysis, wheezing or shortness of breath. GASTROINTESTINAL: Denies changes in appetite, nausea, vomiting, diarrhea or constipation. GENITOURINARY: No history of frequency, urgency, hesitancy or nocturia. NEUROLOGIC: Denies history of numbness, tingling, tremor or weakness. PSYCHIATRIC: No history of panic, anxiety or depression. ENDOCRINE: No history of heat or cold intolerance, polyuria or polydipsia. EXTREMITIES: Denies muscle weakness, joint pain, pain on walking or stiffness. PHYSICAL EXAMINATION: VITAL SIGNS: Temperature afebrile, pulse currently at 64. She has been as low as 32 within the past 11 hours. HEART: Distant S1, S2. Bradycardic. LUNGS: Clear. ABDOMEN: Soft. EXTREMITIES: No edema. SKIN: No rashes. ENDOCRINE: No thyromegaly. LYMPHATICS: No cervical nodes. HEMATOPOIETIC: No bruising. LABORATORY DATA: White count 7, hemoglobin 10, platelets 176. Electrolytes: Sodium 129, potassium 5.9, chloride 96, bicarbonate 22, BUN 52, creatinine 2.9, glucose of 328. ASSESSMENT AND PLAN: Symptomatic bradycardia with atrial fibrillation and severe electrolyte disturbance with hyponatremia, hyperkalemia, azotemia and acute on chronic renal failure and hyperglycemia and hypocalcemia at 8.3 and anemia. The patient is being admitted. We will consult Cardiology, consult Nephrology. Gentle IV fluids. We will consider Kayexalate if Nephrology agrees. Frequent labs, cardiac monitoring. Prognosis is guarded. We will need to go ahead and hold her home negative chronotropic agents including metoprolol and/or amiodarone. TICO EDUARDO DO DR: HELEN/stuart JOB#: [id number] / [id number]
[2017-10-25] VITALS (17 sets, daily range): BP systolic 106–199; BP diastolic 33–86
--- NOTE | 2017-10-25 01:38 | CONS ---
DATE OF CONSULTATION: REQUESTING PHYSICIAN: Dr. Leigh. REASON FOR CONSULTATION: Renal failure. HISTORY OF PRESENT ILLNESS: This is a 67-year-old female with history of diabetes mellitus, hypertension and by her report, some degree of chronic kidney disease, who is currently admitted with generalized weakness. She is found to have hyperkalemia in the setting of [id number] renal insufficiency. In this setting, Nephrology evaluation is requested. PAST MEDICAL HISTORY: Diabetes mellitus, hypertension, obesity, chronic kidney disease - level unclear, hyperlipidemia, coronary artery disease, status post myocardial infarction, atrial fibrillation, COPD, GE reflux disease and urinary incontinence. PAST SURGICAL HISTORY: Appendectomy, cholecystectomy and hysterectomy. ALLERGIES: None. MEDICATIONS: Reviewed per medication list. FAMILY HISTORY: Noncontributory. SOCIAL HISTORY: The patient resides with assistance. REVIEW OF SYSTEMS: No headache, sinus problem, nasal drainage, epistaxis, change in vision or hearing. No difficulty swallowing. No fever, chills, cough, sputum production or hemoptysis. No chest pain, shortness of breath, PND, orthopnea or dyspnea on exertion. No abdominal pain or upper or lower gastrointestinal blood loss. No nausea, vomiting, diarrhea or seizures. PHYSICAL EXAMINATION: GENERAL APPEARANCE: The patient awake, conversant, appropriate. HEENT: Clear. NECK: No increased JVD. No thyromegaly, mass or adenopathy. LUNGS: Clear. CARDIAC: Without S3 or rub. ABDOMEN: Obese, bowel sounds present, nontender. EXTREMITIES: With 1+ bilateral lower extremity edema, pitting. NEUROLOGIC: Nonfocal localizing. PSYCHIATRIC: Fair attention to detail, appropriate affect. LABORATORY DATA: Sodium 129, potassium 5.9, chloride 96, CO2 of 22, BUN 52, creatinine 2.9, GFR 16 and calcium 8.3. Hemoglobin 10.8, hematocrit 31.7. IMPRESSION: 1. Povpv-be-ectakbe kidney disease, specifics unclear at this time. Anticipate more than likely primarily chronic and likely stage IV. She may have some prerenal component on at this time. 2. Hyponatremia secondary to reduced effective intravascular volume. 3. Hyperkalemia. RECOMMENDATIONS: 1. Isotonic saline and follow level of renal function. 2. Kayexalate for hyperkalemia. 3. Elective renal ultrasound. We will follow. FAB RAYA MD DR: JANIE/stuart JOB#: [id number] / [id number]
[2017-10-25] MEDS: IV NORMAL SALINE 1000ML BAG 1,000 ML IV SCH (03:46)
[2017-10-25 06:28] LABS: CALCIUM 8.6 mg/dL (8.5-10.1); CREATININE 1.6 mg/dL (0.6-1.0); POTASSIUM 3.9 mmol/L (3.5-5.1)
[2017-10-25] MEDS ORDERED: NON FORMULARY ITEM (Albuterol Sulfate (Ventolin Hfa Inhaler) 2 PUFF) INH PRN (07:45)
[2017-10-25] MEDS ORDERED: ALBUTEROL SULFATE 2.5 MG/3 ML NEBU. NEB PRN (08:00)
[2017-10-25] MEDS: APIXABAN 5 MG TABLET. PO SCH ×3 (08:09→21:27)
[2017-10-25] MEDS ORDERED: BACITRACIN TOPICAL OINT 14GM TUBE. TP PRN (08:15)
[2017-10-25] MEDS: LEVOTHYROXINE 150 MCG TABLET PO SCH (08:36)
[2017-10-25] MEDS: OXYBUTYNIN CHLORIDE 5 MG TABLET PO SCH ×3 (08:36→21:27)
[2017-10-25] MEDS: FERROUS SULFATE 325 MG TABLET. PO SCH (08:37)
[2017-10-25] MEDS: LACTOBACILLUS RHAMNOSUS GG 1 CAPSULE. PO SCH ×2 (08:37→21:27)
[2017-10-25] MEDS: PANTOPRAZOLE 40 MG TABLET.DR. PO SCH (08:37)
[2017-10-25] MEDS: LOSARTAN POTASSIUM 50 MG TABLET. PO SCH (08:38)
[2017-10-25] MEDS: ISOSORBIDE MONONITRATE ER 30 MG TAB.ER.24H PO SCH (08:38)
[2017-10-25] MEDS: ASPIRIN ENTERIC COATED 81 MG TABLET.DR. PO SCH (08:39)
[2017-10-25] MEDS: COLESTIPOL HCL 1 GM TABLET PO SCH (08:39)
[2017-10-25] MEDS: VENLAFAXINE XR 37.5 MG CAP.ER.24H. PO SCH (08:39)
[2017-10-25] MEDS: GABAPENTIN 100 MG CAPSULE. PO SCH ×2 (08:39→21:27)
[2017-10-25] MEDS: INSULIN GLARGINE 300 UNITS/3 ML INSULN.PEN. SQ SCH ×2 (08:48→21:32)
[2017-10-25] MEDS: INSULIN LISPRO 300 UNITS/3 ML INSULN.PEN. SQ SCH ×6 (08:48→17:00)
[2017-10-25] MEDS ORDERED: ERGOCALCIFEROL (VITAMIN D2) 50,000 UNIT CAPSULE. PO SCH (09:00)
[2017-10-25] MEDS ORDERED: METOPROLOL SUCC 24HR ER 25 MG TAB.ER.24H. PO SCH (09:00)
[2017-10-25] MEDS ORDERED: INSULIN GLARGINE HUM REC ANLOG 52 UNIT SQ SCH (09:00)
[2017-10-25] MEDS ORDERED: NON FORMULARY ITEM (Fluticasone/Salmeterol (Advair 250-50 Diskus) 1 INH) IH SCH (09:00)
[2017-10-25] MEDS ORDERED: NON FORMULARY ITEM (Alendronate Sodium (Fosamax) 1 TAB) PO SCH (09:00)
[2017-10-25] MEDS: IPRATRPIUM/ALBUTEROL 0.5/2.5MG 3 ML NEBU. IH SCH ×4 (09:00→20:17)
--- NOTE | 2017-10-25 09:37 | PDOC ---
SUBJECTIVE ROS States Overall doing alright, just hurting all over. Good UOP OBJECTIVE Vital Signs Vital Signs Date Time Temp Pulse Resp B/P (MAP) Pulse Ox O2 Delivery O2 Flow Rate FiO2 10/25/17 09:00 76 22 99 Nasal Cannula 3.0 10/25/17 08:00 99.0 99.0 I & 0 Intake and Output 10/25/17 07:01 Intake Total 2178.17 ml Output Total 3300 ml Balance -1121.83 ml Intake Oral 480 ml IV Total 1698.17 ml Output Urine Total 3300 ml # Voids 1 # Bowel Movements 3 PHYSICAL EXAM Physical Exam GENERAL : NAD HEENT: unremarkable NECK: No increased JVD. LUNGS: Clear. CARDIAC: RRR ABDOMEN: Obese, bowel sounds present, nontender. EXTREMITIES: 1+ bilateral lower extremity edema, pitting. NEUROLOGIC: Nonfocal localizing. Skin No rash DIAGNOSIS/ASSESSMENT Assessment & Plan Islwo-pf-tnxfxvi kidney disease - Likely Pre-renal renal function improved , good UOP Hold Lasix Today She take Lasix at Home PO BID, CKD stage 3 - Baseline Creat 1.3-1.6, since 2015 as per labs available with intermittent MANDIE Renal US in 2015- Unremarkable Hyponatremia - secondary to reduced effective intravascular volume Now mildly Hypernatremic , stop NS , Hold lasix Hyperkalemia- Resolved HTN- Currently on meds Bradycardia- resolved, metoprolol on Hold DW Pt and RN at bedside COMMENT/RELEVANT DATA Meds Current Medications Medications (Trade) Dose Ordered Sig/Kerry Start Time Stop Time Status Last Admin Dose Admin Albuterol Sulfate (Ventolin Neb Soln) 2.5 mg Q6HRS 10/25/17 12:00 Albuterol/ Ipratropium (Duoneb) 3 ml RTQID 10/25/17 09:00 Apixaban (Eliquis) 5 mg BID 10/25/17 09:00 10/25/17 08:36 5 MG Aspirin (Ana Aspirin) 325 mg 1X ONCE 10/23/17 19:15 10/23/17 19:23 DC 10/23/17 19:24 325 MG Aspirin (Ecotrin) 81 mg DAILY 10/25/17 09:00 10/25/17 08:39 81 MG Atorvastatin Calcium (Lipitor) 80 mg QHS 10/25/17 21:00 Atropine Sulfate (ATROPINE 1mg SYRINGE) 1 mg 1X ONCE 10/23/17 20:30 10/23/17 20:31 DC 10/23/17 20:36 1 MG Bacitracin 1 myrtle PRN Q12HRS PRN 10/25/17 08:15 Budesonide (Pulmicort) 0.5 mg BID 10/25/17 09:00 Calcium Gluconate 1000 mg/Dextrose 110 ml @ 220 mls/hr 1X ONCE 10/23/17 21:30 10/23/17 21:59 DC 10/23/17 21:26 220 MLS/HR Colestipol HCl (Colestid) 1 gm DAILY 10/25/17 09:00 10/25/17 08:39 1 GM Dextrose (Dextrose 50%-Water Syringe) 12.5 gm PRN Q15MIN PRN 10/23/17 21:30 Ergocalciferol (Vitamin D2) 50,000 unit WEEKLY 10/25/17 09:00 10/25/17 08:39 50,000 UNIT Ferrous Sulfate (Feosol) 325 mg DAILY 10/25/17 09:00 10/25/17 08:37 325 MG Gabapentin (Neurontin) 100 mg BID 10/25/17 09:00 10/25/17 08:39 100 MG Insulin Glargine (Lantus) 45 units BID 10/25/17 09:00 10/25/17 08:48 45 UNITS Insulin Human Lispro (HumaLOG) 20 units TIDAC 10/24/17 08:30 10/25/17 08:48 20 UNITS Insulin Human Regular (HumuLIN R VIAL) 10 unit 1X ONCE 10/23/17 21:30 10/23/17 21:31 DC 10/23/17 21:25 10 UNIT Isosorbide Mononitrate (Imdur) 30 mg DAILY 10/25/17 09:00 10/25/17 08:38 30 MG Lactobacillus Rhamnosus (Culturelle) 1 cap BID 10/25/17 09:00 10/25/17 08:37 1 CAP Levothyroxine Sodium (Synthroid) 150 mcg DAILY07 10/25/17 09:00 10/25/17 08:36 150 MCG Losartan Potassium (Cozaar) 50 mg DAILY 10/25/17 09:00 10/25/17 08:38 50 MG Metoprolol Succinate (Toprol Xl) 25 mg DAILY 10/25/17 09:00 Non-Formulary Medication (Albuterol Sulfate (Ventolin Hfa Inhaler)) 2 puff Q4HRS PRN 10/25/17 07:45 10/25/17 07:58 DC Non-Formulary Medication (Alendronate Sodium (Fosamax)) 1 tab WEEKLY 10/25/17 09:00 10/25/17 09:00 DC Non-Formulary Medication (Fluticasone/ Salmeterol (Advair 250-50 Diskus)) 1 inh BID 10/25/17 09:00 10/25/17 09:00 DC Non-Formulary Medication (Insulin Glargine,Hum.rec.anlog (Lantus)) 52 unit BID 10/25/17 09:00 10/25/17 09:00 DC Non-Formulary Medication (Insulin Aspart (Novolog Flexpen)) 30 unit TIDAC 10/25/17 11:30 10/25/17 11:30 DC Oxybutynin Chloride (Ditropan) 5 mg TID 10/25/17 09:00 10/25/17 08:36 5 MG Pantoprazole Sodium (Protonix) 40 mg DAILY07 10/25/17 09:00 10/25/17 08:37 40 MG Sodium Polystyrene Sulfonate (Kayexalate) 30 gm 1X ONCE 10/24/17 13:00 10/24/17 13:01 DC 10/24/17 12:31 30 GM Sodium Chloride 1,000 ml @ 100 mls/hr Q10H 10/24/17 00:15 10/25/17 03:46 100 MLS/HR Venlafaxine HCl (Effexor Xr) 150 mg DAILY 10/25/17 09:00 10/25/17 08:39 150 MG Lab Laboratory Tests Test 10/24/17 11:31 10/24/17 16:45 10/24/17 20:55 10/25/17 05:02 Glucose (Fingerstick) 219 mg/dL (70-99) 176 mg/dL (70-99) 195 mg/dL (70-99) 169 mg/dL (70-99) Potassium Level 4.5 mmol/L (3.5-5.1) Test 10/25/17 06:08 Sodium Level 146 mmol/L (136-145) Potassium Level 3.9 mmol/L (3.5-5.1) Chloride Level 110 mmol/L (98-107) Carbon Dioxide Level 29 mmol/L (21-32) Anion Gap 7 (6-14) Blood Urea Nitrogen 33 mg/dL (7-20) Creatinine 1.6 mg/dL (0.6-1.0) Estimated GFR (Cockcroft-Gault) 32.0 Glucose Level 183 mg/dL (70-99) Calcium Level 8.6 mg/dL (8.5-10.1) Results All relevant outside records, renal labs, imaging studies, telemetry/EKG's were reviewed. AMBAR HARTMAN MD Oct 25, 2017 09:37
[2017-10-25] MEDS ORDERED: INSULIN ASPART 30 UNIT SQ SCH (11:30)
[2017-10-25] MEDS: BUDESONIDE 0.5 MG/2 ML NEBU. NEB SCH ×2 (11:41→20:17)
[2017-10-25] MEDS ORDERED: ALBUTEROL SULFATE 2.5 MG/3 ML NEBU. NEB SCH (12:00)
--- NOTE | 2017-10-25 13:25 | PDOC ---
PROGRESS NOTES Chief Complaint Chief Complaint generalized weakness sinus bradycardia h/o AFib on eliquis dm2 on INsuilin hyponatremia hyperkalemia MANDIE, vasomotor HTN hld hypothyroidism h/o CAD with 2 stents asthma stable OA with chronic left ankle pain with fusion sx rt shoulder pain , h/o OA morbid obesity plan: card, renal consult metoprolol and amiodarone held, would like to resume metoprolol if ok with card since no regine anymore cont AC if ok with card if no plan for PPM cont home meds, slightly reduce insulin to lantus 45u bid,aspart 20u tid, SSI PTOT pt said she was fu with [facility] for rt shoulder pain with ortho, will get ortho consult gentle ivf, hold lasix, k History of Present Illness History of Present Illness ROS: no fever, chills, sob or chest pain feels weak HR 70s, no regine anymore Cr better BP high c/o left ankle pain, rt shoulder pain Vitals Vitals Vital Signs Date Time Temp Pulse Resp B/P (MAP) Pulse Ox O2 Delivery O2 Flow Rate FiO2 10/25/17 12:00 Nasal Cannula 3.0 10/25/17 12:00 97.9 66 22 127/59 (81) 98 97.9 Physical Exam Physical Exam left ankle mild tenderness, healed sx scar General: Alert, Oriented X3, Cooperative, No acute distress Heart: Regular rate, Normal S1, Normal S2 Lungs: Clear, Other Abdomen: Normal bowel sounds, Soft Extremities: No clubbing, No cyanosis, Other Skin: No rashes Labs LABS Laboratory Tests Test 10/24/17 16:45 10/24/17 20:55 10/25/17 05:02 10/25/17 06:08 Potassium Level 4.5 mmol/L (3.5-5.1) 3.9 mmol/L (3.5-5.1) Glucose (Fingerstick) 176 mg/dL (70-99) 195 mg/dL (70-99) 169 mg/dL (70-99) Sodium Level 146 mmol/L (136-145) Chloride Level 110 mmol/L (98-107) Carbon Dioxide Level 29 mmol/L (21-32) Anion Gap 7 (6-14) Blood Urea Nitrogen 33 mg/dL (7-20) Creatinine 1.6 mg/dL (0.6-1.0) Estimated GFR (Cockcroft-Gault) 32.0 Glucose Level 183 mg/dL (70-99) Calcium Level 8.6 mg/dL (8.5-10.1) Test 10/25/17 12:32 Glucose (Fingerstick) 114 mg/dL (70-99) Assessment and Plan Assessmemt and Plan Problems Medical Problems: (1) Acute on chronic renal insufficiency Status: Acute (2) Atrial fibrillation with slow ventricular response Status: Acute (3) Bradycardia Status: Acute (4) Hyperglycemia Status: Acute (5) Hyperkalemia Status: Acute (6) Hyponatremia Status: Acute Comment Review of Relevant I have reviewed the following items brooke (where applicable) has been applied. Labs Laboratory Tests Test 10/23/17 20:00 10/24/17 00:30 10/24/17 04:00 10/24/17 08:04 White Blood Count 7.7 x10^3/uL (4.0-11.0) Red Blood Count 3.36 x10^6/uL (3.50-5.40) Hemoglobin 10.4 g/dL (12.0-15.5) Hematocrit 30.4 % (36.0-47.0) Mean Corpuscular Volume 91 fL (79-100) Mean Corpuscular Hemoglobin 31 pg (25-35) Mean Corpuscular Hemoglobin Concent 34 g/dL (31-37) Red Cell Distribution Width 15.8 % (11.5-14.5) Platelet Count 176 x10^3/uL (140-400) Neutrophils (%) (Auto) 72 % (31-73) Lymphocytes (%) (Auto) 17 % (24-48) Monocytes (%) (Auto) 10 % (0-9) Eosinophils (%) (Auto) 1 % (0-3) Basophils (%) (Auto) 1 % (0-3) Neutrophils # (Auto) 5.6 x10^3uL (1.8-7.7) Lymphocytes # (Auto) 1.3 x10^3/uL (1.0-4.8) Monocytes # (Auto) 0.8 x10^3/uL (0.0-1.1) Eosinophils # (Auto) 0.0 x10^3/uL (0.0-0.7) Basophils # (Auto) 0.0 x10^3/uL (0.0-0.2) Sodium Level 129 mmol/L (136-145) Potassium Level 5.9 mmol/L (3.5-5.1) Chloride Level 96 mmol/L (98-107) Carbon Dioxide Level 26 mmol/L (21-32) Anion Gap 7 (6-14) Blood Urea Nitrogen 52 mg/dL (7-20) Creatinine 3.7 mg/dL (0.6-1.0) Estimated GFR (Cockcroft-Gault) 12.1 BUN/Creatinine Ratio 14 (6-20) Glucose Level 285 mg/dL (70-99) Calcium Level 8.4 mg/dL (8.5-10.1) Magnesium Level 2.0 mg/dL (1.8-2.4) Total Bilirubin 0.2 mg/dL (0.2-1.0) Aspartate Amino Transf (AST/SGOT) 23 U/L (15-37) Alanine Aminotransferase (ALT/SGPT) 33 U/L (14-59) Alkaline Phosphatase 101 U/L (46-116) Creatine Kinase 57 U/L (26-192) Creatine Kinase MB (Mass) 0.7 ng/mL (0.0-3.6) Creatine Kinase MB Relative Index % (0-4) Troponin I Quantitative < 0.017 ng/mL (0.000-0.055) < 0.017 ng/mL (0.000-0.055) Total Protein 6.6 g/dL (6.4-8.2) Albumin 2.8 g/dL (3.4-5.0) Albumin/Globulin Ratio 0.7 (1.0-1.7) Nasal Screen MRSA (PCR) Positive (Negative) Glucose (Fingerstick) 301 mg/dL (70-99) Test 10/24/17 08:45 10/24/17 11:31 10/24/17 16:45 10/24/17 20:55 White Blood Count 8.2 x10^3/uL (4.0-11.0) Red Blood Count 3.50 x10^6/uL (3.50-5.40) Hemoglobin 10.8 g/dL (12.0-15.5) Hematocrit 31.7 % (36.0-47.0) Mean Corpuscular Volume 91 fL (79-100) Mean Corpuscular Hemoglobin 31 pg (25-35) Mean Corpuscular Hemoglobin Concent 34 g/dL (31-37) Red Cell Distribution Width 16.1 % (11.5-14.5) Platelet Count 165 x10^3/uL (140-400) Neutrophils (%) (Auto) 76 % (31-73) Lymphocytes (%) (Auto) 14 % (24-48) Monocytes (%) (Auto) 10 % (0-9) Eosinophils (%) (Auto) 1 % (0-3) Basophils (%) (Auto) 0 % (0-3) Neutrophils # (Auto) 6.2 x10^3uL (1.8-7.7) Lymphocytes # (Auto) 1.1 x10^3/uL (1.0-4.8) Monocytes # (Auto) 0.8 x10^3/uL (0.0-1.1) Eosinophils # (Auto) 0.0 x10^3/uL (0.0-0.7) Basophils # (Auto) 0.0 x10^3/uL (0.0-0.2) Sodium Level 129 mmol/L (136-145) Potassium Level 5.9 mmol/L (3.5-5.1) 4.5 mmol/L (3.5-5.1) Chloride Level 96 mmol/L (98-107) Carbon Dioxide Level 22 mmol/L (21-32) Anion Gap 11 (6-14) Blood Urea Nitrogen 52 mg/dL (7-20) Creatinine 2.9 mg/dL (0.6-1.0) Estimated GFR (Cockcroft-Gault) 16.1 BUN/Creatinine Ratio 18 (6-20) Glucose Level 328 mg/dL (70-99) Calcium Level 8.3 mg/dL (8.5-10.1) Total Bilirubin 0.2 mg/dL (0.2-1.0) Aspartate Amino Transf (AST/SGOT) 23 U/L (15-37) Alanine Aminotransferase (ALT/SGPT) 35 U/L (14-59) Alkaline Phosphatase 109 U/L (46-116) Troponin I Quantitative < 0.017 ng/mL (0.000-0.055) Total Protein 6.2 g/dL (6.4-8.2) Albumin 2.8 g/dL (3.4-5.0) Albumin/Globulin Ratio 0.8 (1.0-1.7) Thyroid Stimulating Hormone (TSH) 5.487 uIU/mL (0.358-3.74) Digoxin Level < 0.2 ng/mL (0.9-2.0) Digoxin Last Dose Date Unknown Digoxin Last Dose Time Unknown Glucose (Fingerstick) 219 mg/dL (70-99) 176 mg/dL (70-99) 195 mg/dL (70-99) Test 10/25/17 05:02 10/25/17 06:08 10/25/17 12:32 Glucose (Fingerstick) 169 mg/dL (70-99) 114 mg/dL (70-99) Sodium Level 146 mmol/L (136-145) Potassium Level 3.9 mmol/L (3.5-5.1) Chloride Level 110 mmol/L (98-107) Carbon Dioxide Level 29 mmol/L (21-32) Anion Gap 7 (6-14) Blood Urea Nitrogen 33 mg/dL (7-20) Creatinine 1.6 mg/dL (0.6-1.0) Estimated GFR (Cockcroft-Gault) 32.0 Glucose Level 183 mg/dL (70-99) Calcium Level 8.6 mg/dL (8.5-10.1) Laboratory Tests Test 10/24/17 16:45 10/24/17 20:55 10/25/17 05:02 10/25/17 06:08 Potassium Level 4.5 mmol/L (3.5-5.1) 3.9 mmol/L (3.5-5.1) Glucose (Fingerstick) 176 mg/dL (70-99) 195 mg/dL (70-99) 169 mg/dL (70-99) Sodium Level 146 mmol/L (136-145) Chloride Level 110 mmol/L (98-107) Carbon Dioxide Level 29 mmol/L (21-32) Anion Gap 7 (6-14) Blood Urea Nitrogen 33 mg/dL (7-20) Creatinine 1.6 mg/dL (0.6-1.0) Estimated GFR (Cockcroft-Gault) 32.0 Glucose Level 183 mg/dL (70-99) Calcium Level 8.6 mg/dL (8.5-10.1) Test 10/25/17 12:32 Glucose (Fingerstick) 114 mg/dL (70-99) Medications Current Medications Aspirin (Ana Aspirin) 325 mg 1X ONCE PO Last administered on 10/23/17 19:24 ; Start 10/23/17 at 19:15; Stop 10/23/17 at 19:23; Status DC Atropine Sulfate (ATROPINE 1mg SYRINGE) 0.5 mg 1X ONCE IV Last administered on 10/23/17 19:16; Start 10/23/17 at 19:15; Stop 10/23/17 at 19:23; Status DC Sodium Chloride 1,000 ml @ 1,000 mls/hr 1X ONCE IV Last administered on 19:24; Start 10/23/17 at 19:30; Stop 10/23/17 at 20:29; Status DC Atropine Sulfate (ATROPINE 1mg SYRINGE) 1 mg 1X ONCE IV Last administered on at 20:36; Start 10/23/17 at 20:30; Stop 10/23/17 at 20:31; Status DC Calcium Gluconate 1000 mg/Dextrose 110 ml @ 220 mls/hr 1X ONCE IV Last administered on 10/23/17 21:26; Start 10/23/17 at 21:30; Stop 10/23/17 at 21:59 ; Status DC Insulin Human Regular (HumuLIN R VIAL) 10 unit 1X ONCE IV Last administered on 10/23/17 21:25; Start 10/23/17 at 21:30; Stop 10/23/17 at 21:31; Status DC Dextrose (Dextrose 50%-Water Syringe) 25 gm 1X ONCE IV Last administered on 21:26; Start 10/23/17 at 21:30; Stop 10/23/17 at 21:31; Status DC Insulin Human Lispro (HumaLOG) 0-5 UNITS TIDWMEALS SQ Last administered on 10/25at 08:49; Start 10/24/17 at 08:00 Dextrose (Dextrose 50%-Water Syringe) 12.5 gm PRN Q15MIN PRN IV SEE COMMENTS; Start 10/23/17 at 21:30 Sodium Chloride 1,000 ml @ 100 mls/hr Q10H IV Last administered on 8/20/18at 03:46; Start 10/24/17 at 00:15; Stop 10/25/17 at 11:29; Status DC Insulin Human Lispro (HumaLOG) 20 units TIDAC SQ Last administered on at 12:36; Start 10/24/17 at 08:30 Insulin Glargine (Lantus) 40 units BID SQ Last administered on 10/24/17at 21:10 ; Start 10/24/17 at 09:00; Stop 10/25/17 at 07:50; Status DC Sodium Polystyrene Sulfonate (Kayexalate) 30 gm 1X ONCE PO Last administered on 10/24/17 12:31; Start 10/24/17 at 13:00; Stop 10/24/17 at 13:01; Status DC Apixaban (Eliquis) 5 mg BID PO Last administered on 10/25/17 08:36; Start at 09:00 Aspirin (Ecotrin) 81 mg DAILY PO Last administered on 10/25/17at 08:39; Start at 09:00 Colestipol HCl (Colestid) 1 gm DAILY PO Last administered on 10/25/17 08:39; Start 10/25/17 at 09:00 Ergocalciferol (Vitamin D2) 50,000 unit WEEKLY PO Last administered on 08:39; Start 10/25/17 at 09:00 Ferrous Sulfate (Feosol) 325 mg DAILY PO Last administered on 10/25/17at 08:37; Start 10/25/17 at 09:00 Gabapentin (Neurontin) 100 mg BID PO Last administered on 10/25/17at 08:39; Start 10/25/17 at 09:00 Albuterol/ Ipratropium (Duoneb) 3 ml RTQID IH Last administered on 10/25/17 11 :40; Start 10/25/17 at 09:00 Isosorbide Mononitrate (Imdur) 30 mg DAILY PO Last administered on 10/25/17 08 :38; Start 10/25/17 at 09:00 Lactobacillus Rhamnosus (Culturelle) 1 cap BID PO Last administered on at 08:37; Start 10/25/17 at 09:00 Losartan Potassium (Cozaar) 50 mg DAILY PO Last administered on 10/25/17at 08:38 ; Start 10/25/17 at 09:00 Metoprolol Succinate (Toprol Xl) 25 mg DAILY PO ; Start 10/25/17 at 09:00 Oxybutynin Chloride (Ditropan) 5 mg TID PO Last administered on 10/25/17at 08:36 ; Start 10/25/17 at 09:00 Pantoprazole Sodium (Protonix) 40 mg DAILY07 PO Last administered on 10/25/17at 08:37; Start 10/25/17 at 09:00 Non-Formulary Medication (Albuterol Sulfate (Ventolin Hfa Inhaler)) 2 puff Q4HRS PRN INH SHORTNESS OF BREATH; Start 10/25/17 at 07:45; Stop 10/25/17 at 07 :58; Status DC Non-Formulary Medication (Alendronate Sodium (Fosamax)) 1 tab WEEKLY PO ; Start 10/25/17 at 09:00; Stop 10/25/17 at 09:00; Status DC Atorvastatin Calcium (Lipitor) 80 mg QHS PO ; Start 10/25/17 at 21:00 Bacitracin 1 myrtle PRN Q12HRS PRN TP WOUND CARE; Start 10/25/17 at 08:15 Non-Formulary Medication (Fluticasone/ Salmeterol (Advair 250-50 Diskus)) 1 inh BID IH ; Start 10/25/17 at 09:00; Stop 10/25/17 at 09:00; Status DC Non-Formulary Medication (Insulin Aspart (Novolog Flexpen)) 30 unit TIDAC SQ ; Start 10/25/17 at 11:30; Stop 10/25/17 at 11:30; Status DC Non-Formulary Medication (Insulin Glargine,Hum.rec.anlog (Lantus)) 52 unit BID SQ ; Start 10/25/17 at 09:00; Stop 10/25/17 at 09:00; Status DC Levothyroxine Sodium (Synthroid) 150 mcg DAILY07 PO Last administered on at 08:36; Start 10/25/17 at 09:00 Venlafaxine HCl (Effexor Xr) 150 mg DAILY PO Last administered on 10/25/17at 08: 39; Start 10/25/17 at 09:00 Insulin Glargine (Lantus) 45 units BID SQ Last administered on 10/25/17at 08:48 ; Start 10/25/17 at 09:00 Albuterol Sulfate (Ventolin Neb Soln) 2.5 mg PRN Q4HRS PRN NEB SHORTNESS OF BREATH; Start 10/25/17 at 08:00 Albuterol Sulfate (Ventolin Neb Soln) 2.5 mg Q6HRS NEB ; Start 10/25/17 at 12:00 ; Stop 10/25/17 at 12:00; Status DC Budesonide (Pulmicort) 0.5 mg BID NEB Last administered on 10/25/17at 11:41; Start 10/25/17 at 09:00 Active Scripts Active Culturelle (Lactobacillus Rhamnosus Gg) 1 Each Cap.sprink 1 Cap PO BID Reported Ferrous Sulfate 325 Mg Tablet 325 Mg PO DAILY Gabapentin 100 Mg Capsule 100 Mg PO BID Colestipol Hcl 1 Gm Tablet 1 Gm PO DAILY Oxybutynin Chloride 5 Mg Tablet 5 Mg PO TID Lipitor (Atorvastatin Calcium) 80 Mg Tablet 80 Mg PO HS Levothyroxine Sodium 150 Mcg Tablet 1 Tab PO DAILY Isosorbide Mononitrate Er (Isosorbide Mononitrate) 30 Mg Tab.er.24h 1 Tab PO DAILY Fosamax (Alendronate Sodium) 70 Mg Tablet 1 Tab PO WEEKLY Eliquis (Apixaban) 5 Mg Tablet 5 Mg PO BID Bacitracin 1 Each Packet 1 Each TP PRN Aspir 81 (Aspirin) 81 Mg Tablet.dr 1 Tab PO DAILY Lantus (Insulin Glargine,Hum.rec.anlog) 100 Unit/1 Ml Vial 52 Unit SQ BID MAY INCREASE FOR BLOOD SUGARS GREATER THAN 200 FASTING Advair 250-50 Diskus (Fluticasone/Salmeterol) 1 Each Disk.w.dev 1 Inh IH BID Duoneb 0.5-3(2.5) Mg/3 Ml (Albuterol/Ipratropium) 3 Ml Ampul.neb 3 Ml IH QID Ventolin Hfa Inhaler (Albuterol Sulfate) 18 Gm Hfa.aer.ad 2 Puff INH Q4HRS PRN Amiodarone Hcl 200 Mg Tablet 200 Mg PO BID Venlafaxine Hcl Er (Venlafaxine Hcl) 150 Mg Cap.er.24h 150 Mg PO DAILY Novolog Flexpen (Insulin Aspart) 100 Unit/1 Ml Insuln.pen 30 Unit SQ TIDAC Vitamin D2 (Ergocalciferol (Vitamin D2)) 50,000 Unit Capsule 50,000 Unit PO TWICE WEEKLY Potassium Chloride 20 Meq Tablet.er 20 Meq PO DAILY Furosemide 40 Mg Tablet 40 Mg PO BID94 Metoprolol Succinate ( Xl ) (Metoprolol Succinate) 25 Mg Tab.er.24h 25 Mg PO DAILY Losartan Potassium 50 Mg Tablet 50 Mg PO DAILY Pantoprazole Sodium 40 Mg Tablet.dr 40 Mg PO DAILY Trazodone Hcl 100 Mg Tablet 200 Mg PO HS Vitals/I & O Vital Sign - Last 24 Hours 10/24/17 10/24/17 10/24/17 10/24/17 14:00 15:00 16:00 16:00 Temp 98.7 98.7 Pulse 64 63 67 Resp 22 23 B/P (MAP) 162/65 (97) 146/70 (95) 158/72 (100) Pulse Ox 98 99 100 O2 Delivery Nasal Cannula Nasal Cannula Nasal Cannula Nasal Cannula O2 Flow Rate 3.0 3.0 3.0 3.0 10/24/17 10/24/17 10/24/17 10/24/17 17:00 18:00 19:07 19:10 Temp 98.4 98.4 Pulse 67 68 72 Resp 24 21 18 B/P (MAP) 178/59 (98) 179/65 (103) 157/61 (93) Pulse Ox 97 100 100 O2 Delivery Nasal Cannula Nasal Cannula Nasal Cannula Nasal Cannula O2 Flow Rate 3.0 3.0 3.0 3.0 10/24/17 10/24/17 10/24/17 10/24/17 20:00 21:17 22:00 23:00 Pulse 72 74 75 74 Resp 18 20 20 20 B/P (MAP) 155/69 (97) 196/69 (111) 159/71 (100) 164/80 (108) Pulse Ox 100 100 99 99 O2 Delivery Nasal Cannula Nasal Cannula Nasal Cannula Nasal Cannula O2 Flow Rate 3.0 3.0 3.0 3.0 10/25/17 10/25/17 10/25/17 10/25/17 00:00 00:00 01:00 02:00 Temp 98.6 98.6 Pulse 68 72 72 Resp 16 16 16 B/P (MAP) 141/46 (77) 160/76 (104) 106/33 (57) Pulse Ox 99 95 93 O2 Delivery Nasal Cannula Nasal Cannula Nasal Cannula Nasal Cannula O2 Flow Rate 3.0 3.0 3.0 3.0 10/25/18 8//18 8//18 8//18 03:00 03:46 04:00 05:00 Temp 98.4 98.4 Pulse 76 74 76 Resp 16 15 16 B/P (MAP) 198/77 (117) 182/86 (118) 199/74 (115) Pulse Ox 99 99 97 O2 Delivery Nasal Cannula Nasal Cannula Nasal Cannula Nasal Cannula O2 Flow Rate 3.0 3.0 3.0 3.0 10/25/17 10/25/17 8/ 8 06:00 07:00 08:00 08:00 Temp 99.0 99.0 Pulse 75 76 73 Resp 16 18 B/P (MAP) 192/65 (107) 198/72 (114) 198/82 (120) Pulse Ox 98 99 99 O2 Delivery Nasal Cannula Nasal Cannula Nasal Cannula Nasal Cannula O2 Flow Rate 3.0 3.0 3.0 3.0 10/25/1710/25/18 8/18 18 08:38 08:38 09:00 10:00 Pulse 76 76 76 90 Resp 22 B/P (MAP) 198/72 198/72 131/56 (81) Pulse Ox 99 99 O2 Delivery Nasal Cannula Nasal Cannula O2 Flow Rate 3.0 3.0 10/25/1718 10/25/18 18 11:00 11:42 12:00 12:00 Temp 97.9 97.9 Pulse 66 66 Resp 22 22 B/P (MAP) 134/50 (78) 127/59 (81) Pulse Ox 99 98 98 O2 Delivery Nasal Cannula Room Air Room Air Nasal Cannula O2 Flow Rate 3.0 3.0 Intake and Output 10/24/17 10/24/17 10/25/17 15:01 23:01 07:01 Intake Total 480 ml 593.17 ml 1105 ml Output Total 600 ml 1700 ml 1000 ml Balance -120 ml -1106.83 ml 105 ml ANNY LORA MD Oct 25, 2017 13:25
[2017-10-25] MEDS ORDERED: ONDANSETRON PF 4 MG/2 ML VIAL. IV PRN (13:30)
[2017-10-25] MEDS ORDERED: LABETALOL 20 MG/4 ML DISP.SYRIN. IVP PRN (13:30)
[2017-10-25] MEDS ORDERED: DOCUSATE SODIUM 100 MG CAPSULE. PO PRN (13:30)
[2017-10-25] MEDS ORDERED: MORPHINE SULFATE 2 MG/ML VIAL. IV PRN (13:30)
[2017-10-25] MEDS ORDERED: ACETAMINOPHEN 325 MG TABLET. PO PRN (13:30)
--- NOTE | 2017-10-25 16:10 | PDOC ---
PROGRESS NOTES Subjective Subjective Patient feeling better today. Denied any chest pain or dizziness Objective Objective Vital Signs Date Time Temp Pulse Resp B/P (MAP) Pulse Ox O2 Delivery O2 Flow Rate FiO2 10/25/17 15:00 72 18 130/58 (82) 97 Room Air 10/25/17 12:00 3.0 10/25/17 12:00 97.9 97.9 Intake and Output 10/25/17 07:01 Intake Total 2178.17 ml Output Total 3300 ml Balance -1121.83 ml Intake Oral 480 ml IV Total 1698.17 ml Output Urine Total 3300 ml # Voids 1 # Bowel Movements 3 Physical Exam Abdomen: Normal bowel sounds, Soft Heart: Regular rate, Normal S1, Normal S2 Extremities: No clubbing, No cyanosis, Other General: Alert, Oriented X3, Cooperative, No acute distress HEENT: Atraumatic, PERRLA Lungs: Clear to auscultation MUSCULOSKELETAL: Other Psych/Mental Status: Mood NL Skin: No rashes Assessment Assessment 1. Atrial fibrillation with very slow ventricular rate on admission. Presently in sinus rhythm. Due to the severity of bradycardia, we will stop metoprolol altogether and start amiodarone at lower dose 100 mg daily for maintaining sinus rhythm. Plan for event monitor as an outpatient. If she has any further bradycardic episodes on the monitor, we will consider permanent pacemaker implantation. Continue eliquis for stroke prophylaxis. 2D echo 2017 showed normal LV function. 2. CAD s/p PCI/stent LAD/RCA: cardiac cath 03/2017 showed patent stents. She is stable and chest pain free. 3. Acute on chronic renal insufficiency, hyponatremia: nephrology consulted 4. HTN: controlled 5. HLP: statins 6. DM-2: Treat per IM Plan Plan of Care Problems Medical Problems: (1) Acute on chronic renal insufficiency Status: Acute (2) Atrial fibrillation with slow ventricular response Status: Acute (3) Bradycardia Status: Acute (4) Hyperglycemia Status: Acute (5) Hyperkalemia Status: Acute (6) Hyponatremia Status: Acute Comment Review of Relevant I have reviewed the following items brooke (where applicable) has been applied. Labs Laboratory Tests Test 10/24/17 16:45 10/24/17 20:55 10/25/17 05:02 10/25/17 06:08 Potassium Level 4.5 mmol/L (3.5-5.1) 3.9 mmol/L (3.5-5.1) Glucose (Fingerstick) 176 mg/dL (70-99) 195 mg/dL (70-99) 169 mg/dL (70-99) Sodium Level 146 mmol/L (136-145) Chloride Level 110 mmol/L (98-107) Carbon Dioxide Level 29 mmol/L (21-32) Anion Gap 7 (6-14) Blood Urea Nitrogen 33 mg/dL (7-20) Creatinine 1.6 mg/dL (0.6-1.0) Estimated GFR (Cockcroft-Gault) 32.0 Glucose Level 183 mg/dL (70-99) Calcium Level 8.6 mg/dL (8.5-10.1) Test 10/25/17 12:32 Glucose (Fingerstick) 114 mg/dL (70-99) Medications Current Medications Acetaminophen (Tylenol) 650 mg PRN Q6HRS PRN PO FEVER; Start 10/25/17 at 13:30 Albuterol Sulfate (Ventolin Neb Soln) 2.5 mg PRN Q4HRS PRN NEB SHORTNESS OF BREATH; Start 10/25/17 at 08:00 Albuterol Sulfate (Ventolin Neb Soln) 2.5 mg Q6HRS NEB ; Start 10/25/17 at 12:00 ; Stop 10/25/17 at 12:00; Status DC Albuterol/ Ipratropium (Duoneb) 3 ml RTQID IH Last administered on 10/25/17at 11 :40; Start 10/25/17 at 09:00 Apixaban (Eliquis) 5 mg BID PO Last administered on 10/25/17at 08:36; Start at 09:00 Aspirin (Ecotrin) 81 mg DAILY PO Last administered on 10/25/17at 08:39; Start at 09:00 Atorvastatin Calcium (Lipitor) 80 mg QHS PO ; Start 10/25/17 at 21:00 Bacitracin 1 myrtle PRN Q12HRS PRN TP WOUND CARE; Start 10/25/17 at 08:15 Budesonide (Pulmicort) 0.5 mg BID NEB Last administered on 10/25/17at 11:41; Start 10/25/17 at 09:00 Colestipol HCl (Colestid) 1 gm DAILY PO Last administered on 10/25/17 08:39; Start 10/25/17 at 09:00 Docusate Sodium (Colace) 100 mg PRN DAILY PRN PO CONSTIPATION; Start 10/25/17 at 13:30 Ergocalciferol (Vitamin D2) 50,000 unit WEEKLY PO Last administered on 08:39; Start 10/25/17 at 09:00 Ferrous Sulfate (Feosol) 325 mg DAILY PO Last administered on 10/25/17 08:37; Start 10/25/17 at 09:00 Gabapentin (Neurontin) 100 mg BID PO Last administered on 10/25/17 08:39; Start 10/25/17 at 09:00 Insulin Glargine (Lantus) 45 units BID SQ Last administered on 10/25/17 08:48 ; Start 10/25/17 at 09:00 Isosorbide Mononitrate (Imdur) 30 mg DAILY PO Last administered on 10/25/17 08 :38; Start 10/25/17 at 09:00 Labetalol HCl (Normodyne Iv Push) 20 mg PRN Q2HR PRN IVP HYPERTENSION, SEE COMMENTS; Start 10/25/17 at 13:30 Lactobacillus Rhamnosus (Culturelle) 1 cap BID PO Last administered on 08:37; Start 10/25/17 at 09:00 Levothyroxine Sodium (Synthroid) 150 mcg DAILY07 PO Last administered on 08:36; Start 10/25/17 at 09:00 Losartan Potassium (Cozaar) 50 mg DAILY PO Last administered on 10/25/17 08:38 ; Start 10/25/17 at 09:00 Metoprolol Succinate (Toprol Xl) 25 mg DAILY PO ; Start 10/25/17 at 09:00 Morphine Sulfate (Morphine Sulfate) 2 mg PRN Q2HR PRN IV MODERATE TO SEVERE PAIN; Start 10/25/17 at 13:30 Non-Formulary Medication (Albuterol Sulfate (Ventolin Hfa Inhaler)) 2 puff Q4HRS PRN INH SHORTNESS OF BREATH; Start 10/25/17 at 07:45; Stop 10/25/17 at 07 :58; Status DC Non-Formulary Medication (Alendronate Sodium (Fosamax)) 1 tab WEEKLY PO ; Start 10/25/17 at 09:00; Stop 10/25/17 at 09:00; Status DC Non-Formulary Medication (Fluticasone/ Salmeterol (Advair 250-50 Diskus)) 1 inh BID IH ; Start 10/25/17 at 09:00; Stop 10/25/17 at 09:00; Status DC Non-Formulary Medication (Insulin Glargine,Hum.rec.anlog (Lantus)) 52 unit BID SQ ; Start 10/25/17 at 09:00; Stop 10/25/17 at 09:00; Status DC Non-Formulary Medication (Insulin Aspart (Novolog Flexpen)) 30 unit TIDAC SQ ; Start 10/25/17 at 11:30; Stop 10/25/17 at 11:30; Status DC Ondansetron HCl (Zofran) 4 mg PRN Q6HRS PRN IV NAUSEA/VOMITING; Start 10/25/17 at 13:30 Oxybutynin Chloride (Ditropan) 5 mg TID PO Last administered on 10/25/17at 14:14 ; Start 10/25/17 at 09:00 Pantoprazole Sodium (Protonix) 40 mg DAILY07 PO Last administered on 10/25/17at 08:37; Start 10/25/17 at 09:00 Tramadol HCl (Ultram) 50 mg PRN Q6HRS PRN PO MILD TO MODERATE PAIN; Start 10/25 at 13:30 Venlafaxine HCl (Effexor Xr) 150 mg DAILY PO Last administered on 10/25/17at 08: 39; Start 10/25/17 at 09:00 Vitals/I & O Vital Sign - Last 24 Hours 10/24/17 10/24/17 10/24/17 10/24/17 17:00 18:00 19:07 19:10 Temp 98.4 98.4 Pulse 67 68 72 Resp 24 21 18 B/P (MAP) 178/59 (98) 179/65 (103) 157/61 (93) Pulse Ox 97 100 100 O2 Delivery Nasal Cannula Nasal Cannula Nasal Cannula Nasal Cannula O2 Flow Rate 3.0 3.0 3.0 3.0 10/24/17 10/24/1718 8/18 20:00 21:17 22:00 23:00 Pulse 72 74 75 74 Resp 18 20 20 20 B/P (MAP) 155/69 (97) 196/69 (111) 159/71 (100) 164/80 (108) Pulse Ox 100 100 99 99 O2 Delivery Nasal Cannula Nasal Cannula Nasal Cannula Nasal Cannula O2 Flow Rate 3.0 3.0 3.0 3.0 18 10/25/ 8//18 820/18 00:00 00:00 01:00 02:00 Temp 98.6 98.6 Pulse 68 72 72 Resp 16 16 16 B/P (MAP) 141/46 (77) 160/76 (104) 106/33 (57) Pulse Ox 99 95 93 O2 Delivery Nasal Cannula Nasal Cannula Nasal Cannula Nasal Cannula O2 Flow Rate 3.0 3.0 3.0 3.0 10/25/17 8/18 8/20/18 8//18 03:00 03:46 04:00 05:00 Temp 98.4 98.4 Pulse 76 74 76 Resp 16 15 16 B/P (MAP) 198/77 (117) 182/86 (118) 199/74 (115) Pulse Ox 99 99 97 O2 Delivery Nasal Cannula Nasal Cannula Nasal Cannula Nasal Cannula O2 Flow Rate 3.0 3.0 3.0 3.0 10/25/17 8/18 8/20/18 820/18 06:00 07:00 08:00 08:00 Temp 99.0 99.0 Pulse 75 76 73 Resp 16 22 18 B/P (MAP) 192/65 (107) 198/72 (114) 198/82 (120) Pulse Ox 98 99 99 O2 Delivery Nasal Cannula Nasal Cannula Nasal Cannula Nasal Cannula O2 Flow Rate 3.0 3.0 3.0 3.0 10/25/1710/25/18 10/25/18 20/18 08:38 08:38 09:00 10:00 Pulse 76 76 76 90 Resp 22 22 B/P (MAP) 198/72 198/72 131/56 (81) Pulse Ox 99 99 O2 Delivery Nasal Cannula Nasal Cannula O2 Flow Rate 3.0 3.0 10/25/1710/25/ 8/18 18 11:00 11:42 12:00 12:00 Temp 97.9 97.9 Pulse 66 66 Resp 22 22 B/P (MAP) 134/50 (78) 127/59 (81) Pulse Ox 99 98 98 O2 Delivery Nasal Cannula Room Air Room Air Nasal Cannula O2 Flow Rate 3.0 3.0 10/25/17 10/25/17 10/25/17 13:00 14:00 15:00 Pulse 77 72 72 Resp 18 18 18 B/P (MAP) 115/58 (77) 114/58 (76) 130/58 (82) Pulse Ox 98 97 97 O2 Delivery Room Air Room Air Room Air Intake and Output 10/24/17 10/24/17 10/25/17 15:01 23:01 07:01 Intake Total 480 ml 593.17 ml 1105 ml Output Total 600 ml 1700 ml 1000 ml Balance -120 ml -1106.83 ml 105 ml RAND GOLDEN MD Oct 25, 2017 16:10
--- NOTE | 2017-10-25 16:23 | CARD ---
MR#: [id number] Date of Study: 10/25/2017 Ordering Physician: RAND GOLDEN, Referring Physician: YAIR GARRETT Tech: Noemy Sylvester [facility] APPROVED REPORT EXAM: Two-dimensional and M-mode echocardiogram with Doppler and color Doppler. Other Information Quality : Good INDICATION Abnormal ECG Bradycardia 2D DIMENSIONS RVDd2.7 (2.9-3.5cm)Left Atrium(2D)4.2 (1.6-4.0cm) IVSd1.1 (0.7-1.1cm)Aortic Root(2D)2.9 (2.0-3.7cm) LVDd4.5 (3.9-5.9cm)LVOT Diameter2.2 (1.8-2.4cm) PWd1.4 (0.7-1.1cm)LVDs2.4 (2.5-4.0cm) FS (%) 47.4 %SV74.1 ml LVEF(%)60.0 (>50%) Aortic Valve AoV Peak Juan.162.1cm/sAoV VTI34.1cm AO Peak GR.10.5mmHgLVOT VTI 28.84cm AO Mean GR.6mmHgAVA (VTI)3.10cm2 Mitral Valve MV E Hjowzviw093.6cm/sMV E Peak Gr.8mmHg MV A Zkubvbsn645.6cm/sMV [id number] E/A Ratio1.2MVA (PHT)3.55cm2 Tricuspid Valve TR P. [id number]/sRAP [id number] TR Peak Gr.98jlVgPNOI65teUa Pulmonary Vein S1 Fplsepxe39.6cm/sS2 Kvaslkik91.30cm/s D2 Vrksqdxr14.3cm/s LEFT VENTRICLE The left ventricle is normal size. There is mild concentric left ventricular hypertrophy. The left ve ntricular systolic function is normal. The Ejection Fraction is 55-60%. There is normal LV segmental wall motion. Transmitral Doppler flow pattern is Grade II-pseudonormal filling dynamics. RIGHT VENTRICLE The right ventricle is normal size. The right ventricular systolic function is normal. ATRIA The left atrium is mildly dilated. The right atrium size is normal. The interatrial septum is intact with no evidence for an atrial septal defect or patent foramen ovale as noted on 2-D or Doppler imagi ng. AORTIC VALVE The aortic valve is calcified but opens well. Doppler and Color Flow revealed no significant aortic r egurgitation. There is no significant aortic valvular stenosis. MITRAL VALVE The mitral valve is calcified but opens well. There is no evidence of mitral valve prolapse. There is no mitral valve stenosis. Doppler and Color-flow revealed trace mitral regurgitation. TRICUSPID VALVE The tricuspid valve is normal in structure and function. Doppler and Color Flow revealed trace to mil d tricuspid regurgitation. There is moderate pulmonary hypertension. The PA pressure was estimated at 54 mmHg. There is no tricuspid valve stenosis. PULMONIC VALVE The pulmonic valve is not well visualized. Doppler and Color Flow revealed mild pulmonic valvular reg urgitation. There is no pulmonic valvular stenosis. GREAT VESSELS The aortic root is normal in size. The ascending aorta is normal in size. The IVC is normal in size a nd collapses >50% with inspiration. PERICARDIAL EFFUSION There is no evidence of significant pericardial effusion. Critical Notification Critical Value: No <Conclusion> The left ventricular systolic function is normal. The Ejection Fraction is 55-60%. There is normal LV segmental wall motion. The left atrium is mildly dilated. Trace mitral regurgitation. Trace to mild tricuspid regurgitation. The PA pressure was estimated at 54 mmHg. There is no evidence of significant pericardial effusion. Signed by : Rand Golden, Electronically Approved : 10/25/2017 16:21:53
[2017-10-25] MEDS: AMIODARONE HCL 200 MG TABLET. PO SCH (17:48)
[2017-10-25] MEDS: traMADol 50 MG TABLET PO PRN (18:39)
--- NOTE | 2017-10-25 19:58 | EKG ---
[address] [place] [address] Test Date: 2017-10-25 Test Time: 19:51:18 Pat Name: HERBERT LERNER Department: Room: 261 1 Gender: F Transfer Controller: ELIZA : [id number] Requested By: RAND GOLDEN Order Number: [id number] Reading MD: Juan C Leyva MD Measurements Intervals [place] Rate: 73 P: 90 MT: 206 QRS: -7 QRSD: 94 T: 76 QT: 418 QTc: 464 Interpretive Statements SINUS RHYTHM Electronically Signed On 10-26-2017 12:08:05 CDT by Juan C Leyva MD
[2017-10-25] MEDS ORDERED: ATORVASTATIN CALCIUM 40 MG TABLET. PO SCH (21:00)
[2017-10-25] MEDS ORDERED: traZODone 100 MG TABLET. PO PRN (22:00)
[2017-10-26 03:00] VITALS: BP 153/77
[2017-10-26 05:57] LABS: BASO % 0 % (0-3); EOS # 0.1 x10^3/uL (0.0-0.7); EOS % 2 % (0-3); HEMATOCRIT 27.1 % (36.0-47.0); HEMOGLOBIN 9.5 g/dL (12.0-15.5); LYMPH # 0.8 x10^3/uL (1.0-4.8); LYMPH % 16 % (24-48); MEAN CORPUSCULAR HEMOGLOBIN 32 pg (25-35); MEAN CORPUSCULAR HGB CONC 35 g/dL (31-37); MEAN CORPUSCULAR VOLUME 90 fL (79-100); MONO # 0.6 x10^3/uL (0.0-1.1); MONO % 11 % (0-9); NEUT # 3.9 x10^3uL (1.8-7.7); NEUT % 72 % (31-73); PLATELET COUNT 162 x10^3/uL (140-400); RED BLOOD COUNT 3.02 x10^6/uL (3.50-5.40); RED CELL DISTRIBUTION WIDTH 15.9 % (11.5-14.5); WHITE BLOOD COUNT 5.4 x10^3/uL (4.0-11.0)
[2017-10-26 06:11] LABS: CALCIUM 8.3 mg/dL (8.5-10.1); CREATININE 1.3 mg/dL (0.6-1.0); GFR 40.6; POTASSIUM 3.9 mmol/L (3.5-5.1)
[2017-10-26] MEDS: LEVOTHYROXINE 150 MCG TABLET PO SCH (07:00)
[2017-10-26 07:30] VITALS: BP 168/54
[2017-10-26] MEDS: IPRATRPIUM/ALBUTEROL 0.5/2.5MG 3 ML NEBU. IH SCH ×3 (08:00→16:20)
[2017-10-26] MEDS: INSULIN LISPRO 300 UNITS/3 ML INSULN.PEN. SQ SCH ×6 (08:00→17:00)
[2017-10-26] MEDS: OXYBUTYNIN CHLORIDE 5 MG TABLET PO SCH ×2 (09:00→14:00)
[2017-10-26] MEDS ORDERED: ANTI-COAG MONITOR BY PHARMACY. MC PRN (09:15)
[2017-10-26] MEDS: COLESTIPOL HCL 1 GM TABLET PO SCH (10:09)
[2017-10-26] MEDS: traMADol 50 MG TABLET PO PRN (10:09)
[2017-10-26] MEDS: ISOSORBIDE MONONITRATE ER 30 MG TAB.ER.24H PO SCH (10:09)
[2017-10-26] MEDS: AMIODARONE HCL 200 MG TABLET. PO SCH (10:10)
[2017-10-26] MEDS: GABAPENTIN 100 MG CAPSULE. PO SCH (10:10)
[2017-10-26] MEDS: APIXABAN 5 MG TABLET. PO SCH (10:10)
[2017-10-26] MEDS: VENLAFAXINE XR 37.5 MG CAP.ER.24H. PO SCH (10:10)
[2017-10-26] MEDS: LACTOBACILLUS RHAMNOSUS GG 1 CAPSULE. PO SCH (10:11)
[2017-10-26] MEDS: PANTOPRAZOLE 40 MG TABLET.DR. PO SCH (10:11)
[2017-10-26] MEDS: LOSARTAN POTASSIUM 50 MG TABLET. PO SCH (10:11)
[2017-10-26] MEDS: ASPIRIN ENTERIC COATED 81 MG TABLET.DR. PO SCH (10:11)
[2017-10-26] MEDS: FERROUS SULFATE 325 MG TABLET. PO SCH (10:20)
[2017-10-26] MEDS: INSULIN GLARGINE 300 UNITS/3 ML INSULN.PEN. SQ SCH (10:27)
--- NOTE | 2017-10-26 10:57 | PDOC ---
SUBJECTIVE ROS States Overall doing alright, Good UOP, On PO lasix BID at home, feels may be retaining some fluid Lasix has been on Hold OBJECTIVE Vital Signs Vital Signs Date Time Temp Pulse Resp B/P (MAP) Pulse Ox O2 Delivery O2 Flow Rate FiO2 10/26/17 10:11 85 10/26/17 07:30 98.0 20 168/54 (92) 98 Nasal Cannula 3.0 98.0 I & 0 Intake and Output 10/26/17 06:59 Intake Total 1880 ml Output Total 1300 ml Balance 580 ml Intake Oral 1580 ml IV Total 300 ml Output Urine Total 1300 ml # Voids 1 PHYSICAL EXAM Physical Exam GENERAL : NAD HEENT: unremarkable NECK: No increased JVD. LUNGS: Clear. CARDIAC: RRR ABDOMEN: Obese, bowel sounds present, nontender. EXTREMITIES: Trace to 1+ bilateral lower extremity edema, pitting. NEUROLOGIC: Nonfocal localizing. - No Cadet Skin No rash DIAGNOSIS/ASSESSMENT Assessment & Plan Mmahh-fw-dscfern kidney disease - Likely Pre-renal renal function improved back to baseline , good UOP CKD stage 3 - Baseline Creat 1.3-1.6, since 2015 as per labs available with intermittent MANDIE Renal US in 2015- Unremarkable Hyponatremia - secondary to reduced effective intravascular volume mildly Hypernatremic yesterday Lasix held, Normal today Can restart Lasix at half of her Home dose Hyperkalemia- Resolved HTN- Currently on meds Bradycardia- resolved, metoprolol on Hold DW Pt and RN at bedside COMMENT/RELEVANT DATA Meds Current Medications Medications (Trade) Dose Ordered Sig/Kerry Start Time Stop Time Status Last Admin Dose Admin Acetaminophen (Tylenol) 650 mg PRN Q6HRS PRN 10/25/17 13:30 Albuterol Sulfate (Ventolin Neb Soln) 2.5 mg Q6HRS 10/25/17 12:00 10/25/17 12:00 DC Albuterol/ Ipratropium (Duoneb) 3 ml RTQID 10/25/17 09:00 10/25/17 20:17 3 ML Amiodarone HCl (Cordarone) 100 mg DAILY 10/25/17 17:00 10/26/17 10:10 100 MG Apixaban (Eliquis) 5 mg BID 10/25/17 09:00 10/26/17 10:10 5 MG Aspirin (Ana Aspirin) 325 mg 1X ONCE 10/23/17 19:15 10/23/17 19:23 DC 10/23/17 19:24 325 MG Aspirin (Ecotrin) 81 mg DAILY 10/25/17 09:00 10/26/17 10:11 81 MG Atorvastatin Calcium (Lipitor) 80 mg QHS 10/25/17 21:00 10/25/17 21:27 80 MG Atropine Sulfate (ATROPINE 1mg SYRINGE) 1 mg 1X ONCE 10/23/17 20:30 10/23/17 20:31 DC 10/23/17 20:36 1 MG Bacitracin 1 myrtle PRN Q12HRS PRN 10/25/17 08:15 Budesonide (Pulmicort) 0.5 mg BID 10/25/17 09:00 10/25/17 20:17 0.5 MG Calcium Gluconate 1000 mg/Dextrose 110 ml @ 220 mls/hr 1X ONCE 10/23/17 21:30 10/23/17 21:59 DC 10/23/17 21:26 220 MLS/HR Colestipol HCl (Colestid) 1 gm DAILY 10/25/17 09:00 10/26/17 10:09 1 GM Dextrose (Dextrose 50%-Water Syringe) 12.5 gm PRN Q15MIN PRN 10/23/17 21:30 Docusate Sodium (Colace) 100 mg PRN DAILY PRN 10/25/17 13:30 Ergocalciferol (Vitamin D2) 50,000 unit WEEKLY 10/25/17 09:00 10/25/17 08:39 50,000 UNIT Ferrous Sulfate (Feosol) 325 mg DAILY 10/25/17 09:00 10/26/17 10:20 325 MG Gabapentin (Neurontin) 100 mg BID 10/25/17 09:00 10/26/17 10:10 100 MG Info (Anti-Coagulation Monitoring By Pharmacy) 1 each PRN DAILY PRN 10/26/17 09:15 Insulin Glargine (Lantus) 45 units BID 10/25/17 09:00 10/26/17 10:27 45 UNITS Insulin Human Lispro (HumaLOG) 20 units TIDAC 10/24/17 08:30 10/26/17 10:25 20 UNITS Insulin Human Regular (HumuLIN R VIAL) 10 unit 1X ONCE 10/23/17 21:30 10/23/17 21:31 DC 10/23/17 21:25 10 UNIT Isosorbide Mononitrate (Imdur) 30 mg DAILY 10/25/17 09:00 10/26/17 10:09 30 MG Labetalol HCl (Normodyne Iv Push) 20 mg PRN Q2HR PRN 10/25/17 13:30 Lactobacillus Rhamnosus (Culturelle) 1 cap BID 10/25/17 09:00 10/26/17 10:11 1 CAP Levothyroxine Sodium (Synthroid) 150 mcg DAILY07 10/25/17 09:00 10/26/17 07:00 150 MCG Losartan Potassium (Cozaar) 50 mg DAILY 10/25/17 09:00 10/26/17 10:11 50 MG Metoprolol Succinate (Toprol Xl) 25 mg DAILY 10/25/17 09:00 10/25/17 16:12 DC Morphine Sulfate (Morphine Sulfate) 2 mg PRN Q2HR PRN 10/25/17 13:30 Non-Formulary Medication (Albuterol Sulfate (Ventolin Hfa Inhaler)) 2 puff Q4HRS PRN 10/25/17 07:45 10/25/17 07:58 DC Non-Formulary Medication (Alendronate Sodium (Fosamax)) 1 tab WEEKLY 10/25/17 09:00 10/25/17 09:00 DC Non-Formulary Medication (Fluticasone/ Salmeterol (Advair 250-50 Diskus)) 1 inh BID 10/25/17 09:00 10/25/17 09:00 DC Non-Formulary Medication (Insulin Glargine,Hum.rec.anlog (Lantus)) 52 unit BID 10/25/17 09:00 10/25/17 09:00 DC Non-Formulary Medication (Insulin Aspart (Novolog Flexpen)) 30 unit TIDAC 10/25/17 11:30 10/25/17 11:30 DC Ondansetron HCl (Zofran) 4 mg PRN Q6HRS PRN 10/25/17 13:30 Oxybutynin Chloride (Ditropan) 5 mg TID 10/25/17 09:00 10/25/17 21:27 5 MG Pantoprazole Sodium (Protonix) 40 mg DAILY07 10/25/17 09:00 10/26/17 10:11 40 MG Sodium Polystyrene Sulfonate (Kayexalate) 30 gm 1X ONCE 10/24/17 13:00 10/24/17 13:01 DC 10/24/17 12:31 30 GM Sodium Chloride 1,000 ml @ 100 mls/hr Q10H 10/24/17 00:15 10/25/17 11:29 DC 10/25/17 03:46 100 MLS/HR Tramadol HCl (Ultram) 50 mg PRN Q6HRS PRN 10/25/17 13:30 10/26/17 10:09 50 MG Trazodone HCl (Desyrel) 200 mg PRN QHS PRN 10/25/17 22:00 10/25/17 22:05 200 MG Venlafaxine HCl (Effexor Xr) 150 mg DAILY 10/25/17 09:00 10/26/17 10:10 150 MG Lab Laboratory Tests Test 10/25/17 12:32 10/25/17 17:11 10/25/17 21:02 10/26/17 05:00 Glucose (Fingerstick) 114 mg/dL (70-99) 134 mg/dL (70-99) 156 mg/dL (70-99) White Blood Count 5.4 x10^3/uL (4.0-11.0) Red Blood Count 3.02 x10^6/uL (3.50-5.40) Hemoglobin 9.5 g/dL (12.0-15.5) Hematocrit 27.1 % (36.0-47.0) Mean Corpuscular Volume 90 fL (79-100) Mean Corpuscular Hemoglobin 32 pg (25-35) Mean Corpuscular Hemoglobin Concent 35 g/dL (31-37) Red Cell Distribution Width 15.9 % (11.5-14.5) Platelet Count 162 x10^3/uL (140-400) Neutrophils (%) (Auto) 72 % (31-73) Lymphocytes (%) (Auto) 16 % (24-48) Monocytes (%) (Auto) 11 % (0-9) Eosinophils (%) (Auto) 2 % (0-3) Basophils (%) (Auto) 0 % (0-3) Neutrophils # (Auto) 3.9 x10^3uL (1.8-7.7) Lymphocytes # (Auto) 0.8 x10^3/uL (1.0-4.8) Monocytes # (Auto) 0.6 x10^3/uL (0.0-1.1) Eosinophils # (Auto) 0.1 x10^3/uL (0.0-0.7) Basophils # (Auto) 0.0 x10^3/uL (0.0-0.2) Sodium Level 144 mmol/L (136-145) Potassium Level 3.9 mmol/L (3.5-5.1) Chloride Level 107 mmol/L (98-107) Carbon Dioxide Level 29 mmol/L (21-32) Anion Gap 8 (6-14) Blood Urea Nitrogen 22 mg/dL (7-20) Creatinine 1.3 mg/dL (0.6-1.0) Estimated GFR (Cockcroft-Gault) 40.6 Glucose Level 128 mg/dL (70-99) Calcium Level 8.3 mg/dL (8.5-10.1) Test 10/26/17 08:45 Glucose (Fingerstick) 137 mg/dL (70-99) Results All relevant outside records, renal labs, imaging studies, telemetry/EKG's were reviewed. AMBAR HARTMAN MD Oct 26, 2017 10:56
[2017-10-26 12:00] VITALS: BP 133/33
[2017-10-26] MEDS ORDERED: FUROSEMIDE 40 MG TABLET. PO SCH (12:00)
[2017-10-26] MEDS: BUDESONIDE 0.5 MG/2 ML NEBU. NEB SCH (12:10)
--- NOTE | 2017-10-26 14:30 | PDOC ---
PROGRESS NOTES Chief Complaint Chief Complaint generalized weakness sinus bradycardia h/o AFib on eliquis dm2 on INsuilin hyponatremia hyperkalemia MANDIE, vasomotor HTN hld hypothyroidism h/o CAD with 2 stents asthma stable OA with chronic left ankle pain with fusion sx rt shoulder pain , h/o OA morbid obesity plan: card, renal consult metoprolol dced, amiodarone decreased to 100mg daily cont AC with eliquis cont home meds, slightly reduce insulin to lantus 45u bid,aspart 20u tid, SSI PTOT pt said she was fu with [facility] for rt shoulder pain gentle ivf, decrease lasix to 40mg daily from bid ortho consult for rt shoulder pain consider dc tmr sw fu for rehab History of Present Illness History of Present Illness ROS: no fever, chills, sob or chest pain feels weak HR 70s, no regine anymore Cr better BP high c/o left ankle pain, rt shoulder pain Vitals Vitals Vital Signs Date Time Temp Pulse Resp B/P (MAP) Pulse Ox O2 Delivery O2 Flow Rate FiO2 10/26/17 12:12 99 Nasal Cannula 2.0 10/26/17 12:00 98.2 75 22 133/33 (66) 98.2 Physical Exam Physical Exam left ankle mild tenderness, healed sx scar General: Alert, Oriented X3, Cooperative, No acute distress Heart: Regular rate, Normal S1, Normal S2 Lungs: Clear, Other Abdomen: Normal bowel sounds, Soft Extremities: No clubbing, No cyanosis, Other Skin: No rashes Labs LABS Laboratory Tests Test 10/25/17 17:11 10/25/17 21:02 10/26/17 05:00 10/26/17 08:45 Glucose (Fingerstick) 134 mg/dL (70-99) 156 mg/dL (70-99) 137 mg/dL (70-99) White Blood Count 5.4 x10^3/uL (4.0-11.0) Red Blood Count 3.02 x10^6/uL (3.50-5.40) Hemoglobin 9.5 g/dL (12.0-15.5) Hematocrit 27.1 % (36.0-47.0) Mean Corpuscular Volume 90 fL (79-100) Mean Corpuscular Hemoglobin 32 pg (25-35) Mean Corpuscular Hemoglobin Concent 35 g/dL (31-37) Red Cell Distribution Width 15.9 % (11.5-14.5) Platelet Count 162 x10^3/uL (140-400) Neutrophils (%) (Auto) 72 % (31-73) Lymphocytes (%) (Auto) 16 % (24-48) Monocytes (%) (Auto) 11 % (0-9) Eosinophils (%) (Auto) 2 % (0-3) Basophils (%) (Auto) 0 % (0-3) Neutrophils # (Auto) 3.9 x10^3uL (1.8-7.7) Lymphocytes # (Auto) 0.8 x10^3/uL (1.0-4.8) Monocytes # (Auto) 0.6 x10^3/uL (0.0-1.1) Eosinophils # (Auto) 0.1 x10^3/uL (0.0-0.7) Basophils # (Auto) 0.0 x10^3/uL (0.0-0.2) Sodium Level 144 mmol/L (136-145) Potassium Level 3.9 mmol/L (3.5-5.1) Chloride Level 107 mmol/L (98-107) Carbon Dioxide Level 29 mmol/L (21-32) Anion Gap 8 (6-14) Blood Urea Nitrogen 22 mg/dL (7-20) Creatinine 1.3 mg/dL (0.6-1.0) Estimated GFR (Cockcroft-Gault) 40.6 Glucose Level 128 mg/dL (70-99) Calcium Level 8.3 mg/dL (8.5-10.1) Test 10/26/17 12:44 Glucose (Fingerstick) 170 mg/dL (70-99) Assessment and Plan Assessmemt and Plan Problems Medical Problems: (1) Acute on chronic renal insufficiency Status: Acute (2) Atrial fibrillation with slow ventricular response Status: Acute (3) Bradycardia Status: Acute (4) Hyperglycemia Status: Acute (5) Hyperkalemia Status: Acute (6) Hyponatremia Status: Acute Comment Review of Relevant I have reviewed the following items brooke (where applicable) has been applied. Labs Laboratory Tests Test 10/24/17 16:45 10/24/17 20:55 10/25/17 05:02 10/25/17 06:08 Potassium Level 4.5 mmol/L (3.5-5.1) 3.9 mmol/L (3.5-5.1) Glucose (Fingerstick) 176 mg/dL (70-99) 195 mg/dL (70-99) 169 mg/dL (70-99) Sodium Level 146 mmol/L (136-145) Chloride Level 110 mmol/L (98-107) Carbon Dioxide Level 29 mmol/L (21-32) Anion Gap 7 (6-14) Blood Urea Nitrogen 33 mg/dL (7-20) Creatinine 1.6 mg/dL (0.6-1.0) Estimated GFR (Cockcroft-Gault) 32.0 Glucose Level 183 mg/dL (70-99) Calcium Level 8.6 mg/dL (8.5-10.1) Test 10/25/17 12:32 10/25/17 17:11 10/25/17 21:02 10/26/17 05:00 Glucose (Fingerstick) 114 mg/dL (70-99) 134 mg/dL (70-99) 156 mg/dL (70-99) White Blood Count 5.4 x10^3/uL (4.0-11.0) Red Blood Count 3.02 x10^6/uL (3.50-5.40) Hemoglobin 9.5 g/dL (12.0-15.5) Hematocrit 27.1 % (36.0-47.0) Mean Corpuscular Volume 90 fL (79-100) Mean Corpuscular Hemoglobin 32 pg (25-35) Mean Corpuscular Hemoglobin Concent 35 g/dL (31-37) Red Cell Distribution Width 15.9 % (11.5-14.5) Platelet Count 162 x10^3/uL (140-400) Neutrophils (%) (Auto) 72 % (31-73) Lymphocytes (%) (Auto) 16 % (24-48) Monocytes (%) (Auto) 11 % (0-9) Eosinophils (%) (Auto) 2 % (0-3) Basophils (%) (Auto) 0 % (0-3) Neutrophils # (Auto) 3.9 x10^3uL (1.8-7.7) Lymphocytes # (Auto) 0.8 x10^3/uL (1.0-4.8) Monocytes # (Auto) 0.6 x10^3/uL (0.0-1.1) Eosinophils # (Auto) 0.1 x10^3/uL (0.0-0.7) Basophils # (Auto) 0.0 x10^3/uL (0.0-0.2) Sodium Level 144 mmol/L (136-145) Potassium Level 3.9 mmol/L (3.5-5.1) Chloride Level 107 mmol/L (98-107) Carbon Dioxide Level 29 mmol/L (21-32) Anion Gap 8 (6-14) Blood Urea Nitrogen 22 mg/dL (7-20) Creatinine 1.3 mg/dL (0.6-1.0) Estimated GFR (Cockcroft-Gault) 40.6 Glucose Level 128 mg/dL (70-99) Calcium Level 8.3 mg/dL (8.5-10.1) Test 10/26/17 08:45 10/26/17 12:44 Glucose (Fingerstick) 137 mg/dL (70-99) 170 mg/dL (70-99) Laboratory Tests Test 10/25/17 17:11 10/25/17 21:02 10/26/17 05:00 10/26/17 08:45 Glucose (Fingerstick) 134 mg/dL (70-99) 156 mg/dL (70-99) 137 mg/dL (70-99) White Blood Count 5.4 x10^3/uL (4.0-11.0) Red Blood Count 3.02 x10^6/uL (3.50-5.40) Hemoglobin 9.5 g/dL (12.0-15.5) Hematocrit 27.1 % (36.0-47.0) Mean Corpuscular Volume 90 fL (79-100) Mean Corpuscular Hemoglobin 32 pg (25-35) Mean Corpuscular Hemoglobin Concent 35 g/dL (31-37) Red Cell Distribution Width 15.9 % (11.5-14.5) Platelet Count 162 x10^3/uL (140-400) Neutrophils (%) (Auto) 72 % (31-73) Lymphocytes (%) (Auto) 16 % (24-48) Monocytes (%) (Auto) 11 % (0-9) Eosinophils (%) (Auto) 2 % (0-3) Basophils (%) (Auto) 0 % (0-3) Neutrophils # (Auto) 3.9 x10^3uL (1.8-7.7) Lymphocytes # (Auto) 0.8 x10^3/uL (1.0-4.8) Monocytes # (Auto) 0.6 x10^3/uL (0.0-1.1) Eosinophils # (Auto) 0.1 x10^3/uL (0.0-0.7) Basophils # (Auto) 0.0 x10^3/uL (0.0-0.2) Sodium Level 144 mmol/L (136-145) Potassium Level 3.9 mmol/L (3.5-5.1) Chloride Level 107 mmol/L (98-107) Carbon Dioxide Level 29 mmol/L (21-32) Anion Gap 8 (6-14) Blood Urea Nitrogen 22 mg/dL (7-20) Creatinine 1.3 mg/dL (0.6-1.0) Estimated GFR (Cockcroft-Gault) 40.6 Glucose Level 128 mg/dL (70-99) Calcium Level 8.3 mg/dL (8.5-10.1) Test 10/26/17 12:44 Glucose (Fingerstick) 170 mg/dL (70-99) Medications Current Medications Aspirin (Ana Aspirin) 325 mg 1X ONCE PO Last administered on 10/23/17at 19:24 ; Start 10/23/17 at 19:15; Stop 10/23/17 at 19:23; Status DC Atropine Sulfate (ATROPINE 1mg SYRINGE) 0.5 mg 1X ONCE IV Last administered on 10/23/17at 19:16; Start 10/23/17 at 19:15; Stop 10/23/17 at 19:23; Status DC Sodium Chloride 1,000 ml @ 1,000 mls/hr 1X ONCE IV Last administered on at 19:24; Start 10/23/17 at 19:30; Stop 10/23/17 at 20:29; Status DC Atropine Sulfate (ATROPINE 1mg SYRINGE) 1 mg 1X ONCE IV Last administered on at 20:36; Start 10/23/17 at 20:30; Stop 10/23/17 at 20:31; Status DC Calcium Gluconate 1000 mg/Dextrose 110 ml @ 220 mls/hr 1X ONCE IV Last administered on 10/23/17at 21:26; Start 10/23/17 at 21:30; Stop 10/23/17 at 21:59 ; Status DC Insulin Human Regular (HumuLIN R VIAL) 10 unit 1X ONCE IV Last administered on 10/23/17at 21:25; Start 10/23/17 at 21:30; Stop 10/23/17 at 21:31; Status DC Dextrose (Dextrose 50%-Water Syringe) 25 gm 1X ONCE IV Last administered on at 21:26; Start 10/23/17 at 21:30; Stop 10/23/17 at 21:31; Status DC Insulin Human Lispro (HumaLOG) 0-5 UNITS TIDWMEALS SQ Last administered on 10/26at 13:52; Start 10/24/17 at 08:00 Dextrose (Dextrose 50%-Water Syringe) 12.5 gm PRN Q15MIN PRN IV SEE COMMENTS; Start 10/23/17 at 21:30 Sodium Chloride 1,000 ml @ 100 mls/hr Q10H IV Last administered on 10/25/17at 03:46; Start 10/24/17 at 00:15; Stop 10/25/17 at 11:29; Status DC Insulin Human Lispro (HumaLOG) 20 units TIDAC SQ Last administered on at 13:51; Start 10/24/17 at 08:30 Insulin Glargine (Lantus) 40 units BID SQ Last administered on 10/24/17at 21:10 ; Start 10/24/17 at 09:00; Stop 10/25/17 at 07:50; Status DC Sodium Polystyrene Sulfonate (Kayexalate) 30 gm 1X ONCE PO Last administered on 10/24/17at 12:31; Start 10/24/17 at 13:00; Stop 10/24/17 at 13:01; Status DC Apixaban (Eliquis) 5 mg BID PO Last administered on 10/26/17at 10:10; Start at 09:00 Aspirin (Ecotrin) 81 mg DAILY PO Last administered on 10/26/17at 10:11; Start at 09:00 Colestipol HCl (Colestid) 1 gm DAILY PO Last administered on 10/26/17 10:09; Start 10/25/17 at 09:00 Ergocalciferol (Vitamin D2) 50,000 unit WEEKLY PO Last administered on at 08:39; Start 10/25/17 at 09:00 Ferrous Sulfate (Feosol) 325 mg DAILY PO Last administered on 10/26/17at 10:20; Start 10/25/17 at 09:00 Gabapentin (Neurontin) 100 mg BID PO Last administered on 10/26/17at 10:10; Start 10/25/17 at 09:00 Albuterol/ Ipratropium (Duoneb) 3 ml RTQID IH Last administered on 10/25/17 20 :17; Start 10/25/17 at 09:00 Isosorbide Mononitrate (Imdur) 30 mg DAILY PO Last administered on 10/26/17 10 :09; Start 10/25/17 at 09:00 Lactobacillus Rhamnosus (Culturelle) 1 cap BID PO Last administered on at 10:11; Start 10/25/17 at 09:00 Losartan Potassium (Cozaar) 50 mg DAILY PO Last administered on 10/26/17 10:11 ; Start 10/25/17 at 09:00 Metoprolol Succinate (Toprol Xl) 25 mg DAILY PO ; Start 10/25/17 at 09:00; Stop 10/25/17 at 16:12; Status DC Oxybutynin Chloride (Ditropan) 5 mg TID PO Last administered on 10/25/17at 21:27 ; Start 10/25/17 at 09:00 Pantoprazole Sodium (Protonix) 40 mg DAILY07 PO Last administered on 10/26/17at 10:11; Start 10/25/17 at 09:00 Non-Formulary Medication (Albuterol Sulfate (Ventolin Hfa Inhaler)) 2 puff Q4HRS PRN INH SHORTNESS OF BREATH; Start 10/25/17 at 07:45; Stop 10/25/17 at 07 :58; Status DC Non-Formulary Medication (Alendronate Sodium (Fosamax)) 1 tab WEEKLY PO ; Start 10/25/17 at 09:00; Stop 10/25/17 at 09:00; Status DC Atorvastatin Calcium (Lipitor) 80 mg QHS PO Last administered on 10/25/17at 21: 27; Start 10/25/17 at 21:00 Bacitracin 1 myrtle PRN Q12HRS PRN TP WOUND CARE; Start 10/25/17 at 08:15 Non-Formulary Medication (Fluticasone/ Salmeterol (Advair 250-50 Diskus)) 1 inh BID IH ; Start 10/25/17 at 09:00; Stop 10/25/17 at 09:00; Status DC Non-Formulary Medication (Insulin Aspart (Novolog Flexpen)) 30 unit TIDAC SQ ; Start 10/25/17 at 11:30; Stop 10/25/17 at 11:30; Status DC Non-Formulary Medication (Insulin Glargine,Hum.rec.anlog (Lantus)) 52 unit BID SQ ; Start 10/25/17 at 09:00; Stop 10/25/17 at 09:00; Status DC Levothyroxine Sodium (Synthroid) 150 mcg DAILY07 PO Last administered on at 07:00; Start 10/25/17 at 09:00 Venlafaxine HCl (Effexor Xr) 150 mg DAILY PO Last administered on 10/26/17at 10: 10; Start 10/25/17 at 09:00 Insulin Glargine (Lantus) 45 units BID SQ Last administered on 10/26/17at 10:27 ; Start 10/25/17 at 09:00 Albuterol Sulfate (Ventolin Neb Soln) 2.5 mg PRN Q4HRS PRN NEB SHORTNESS OF BREATH; Start 10/25/17 at 08:00 Albuterol Sulfate (Ventolin Neb Soln) 2.5 mg Q6HRS NEB ; Start 10/25/17 at 12:00 ; Stop 10/25/17 at 12:00; Status DC Budesonide (Pulmicort) 0.5 mg BID NEB Last administered on 10/26/17at 12:10; Start 10/25/17 at 09:00 Acetaminophen (Tylenol) 650 mg PRN Q6HRS PRN PO FEVER; Start 10/25/17 at 13:30 Ondansetron HCl (Zofran) 4 mg PRN Q6HRS PRN IV NAUSEA/VOMITING; Start 10/25/17 at 13:30 Morphine Sulfate (Morphine Sulfate) 2 mg PRN Q2HR PRN IV MODERATE TO SEVERE PAIN; Start 10/25/17 at 13:30 Tramadol HCl (Ultram) 50 mg PRN Q6HRS PRN PO MILD TO MODERATE PAIN Last administered on 10/26/17at 10:09; Start 10/25/17 at 13:30 Docusate Sodium (Colace) 100 mg PRN DAILY PRN PO CONSTIPATION; Start 10/25/17 at 13:30 Labetalol HCl (Normodyne Iv Push) 20 mg PRN Q2HR PRN IVP HYPERTENSION, SEE COMMENTS; Start 10/25/17 at 13:30 Amiodarone HCl (Cordarone) 100 mg DAILY PO Last administered on 10/26/17at 10:10 ; Start 10/25/17 at 17:00 Trazodone HCl (Desyrel) 200 mg PRN QHS PRN PO INSOMNIA Last administered on at 22:05; Start 10/25/17 at 22:00 Info (Anti-Coagulation Monitoring By Pharmacy) 1 each PRN DAILY PRN MC SEE COMMENTS; Start 10/26/17 at 09:15 Furosemide (Lasix) 40 mg DAILY PO Last administered on 10/26/17at 13:47; Start 10/26/17 at 12:00 Active Scripts Active Culturelle (Lactobacillus Rhamnosus Gg) 1 Each Cap.sprink 1 Cap PO BID Reported Ferrous Sulfate 325 Mg Tablet 325 Mg PO DAILY Gabapentin 100 Mg Capsule 100 Mg PO BID Colestipol Hcl 1 Gm Tablet 1 Gm PO DAILY Oxybutynin Chloride 5 Mg Tablet 5 Mg PO TID Lipitor (Atorvastatin Calcium) 80 Mg Tablet 80 Mg PO HS Levothyroxine Sodium 150 Mcg Tablet 1 Tab PO DAILY Isosorbide Mononitrate Er (Isosorbide Mononitrate) 30 Mg Tab.er.24h 1 Tab PO DAILY Fosamax (Alendronate Sodium) 70 Mg Tablet 1 Tab PO WEEKLY Eliquis (Apixaban) 5 Mg Tablet 5 Mg PO BID Bacitracin 1 Each Packet 1 Each TP PRN Aspir 81 (Aspirin) 81 Mg Tablet.dr 1 Tab PO DAILY Lantus (Insulin Glargine,Hum.rec.anlog) 100 Unit/1 Ml Vial 52 Unit SQ BID MAY INCREASE FOR BLOOD SUGARS GREATER THAN 200 FASTING Advair 250-50 Diskus (Fluticasone/Salmeterol) 1 Each Disk.w.dev 1 Inh IH BID Duoneb 0.5-3(2.5) Mg/3 Ml (Albuterol/Ipratropium) 3 Ml Ampul.neb 3 Ml IH QID Ventolin Hfa Inhaler (Albuterol Sulfate) 18 Gm Hfa.aer.ad 2 Puff INH Q4HRS PRN Amiodarone Hcl 200 Mg Tablet 200 Mg PO BID Venlafaxine Hcl Er (Venlafaxine Hcl) 150 Mg Cap.er.24h 150 Mg PO DAILY Novolog Flexpen (Insulin Aspart) 100 Unit/1 Ml Insuln.pen 30 Unit SQ TIDAC Vitamin D2 (Ergocalciferol (Vitamin D2)) 50,000 Unit Capsule 50,000 Unit PO TWICE WEEKLY Potassium Chloride 20 Meq Tablet.er 20 Meq PO DAILY Furosemide 40 Mg Tablet 40 Mg PO BID94 Metoprolol Succinate ( Xl ) (Metoprolol Succinate) 25 Mg Tab.er.24h 25 Mg PO DAILY Losartan Potassium 50 Mg Tablet 50 Mg PO DAILY Pantoprazole Sodium 40 Mg Tablet.dr 40 Mg PO DAILY Trazodone Hcl 100 Mg Tablet 200 Mg PO HS Vitals/I & O Vital Sign - Last 24 Hours 10/25/17 10/25/17 10/25/17 10/25/17 15:00 16:27 17:48 18:39 Pulse 72 Resp 18 B/P (MAP) 130/58 (82) 136/64 Pulse Ox 97 97 O2 Delivery Room Air Room Air Room Air 10/25/17 10/25/17 10/25/17 10/25/17 18:53 19:40 20:00 20:17 Temp 97.7 97.7 Pulse 88 Resp 22 20 B/P (MAP) 130/60 (83) Pulse Ox 97 100 100 O2 Delivery Room Air Room Air Room Air 10/25/17 10/26/17 10/26/17 10/26/17 23:00 03:00 07:30 10:09 Temp 98.8 98.7 98.0 98.8 98.7 98.0 Pulse 75 94 77 85 Resp 20 20 20 B/P (MAP) 136/57 (83) 153/77 (102) 168/54 (92) Pulse Ox 96 94 98 O2 Delivery Room Air Room Air Nasal Cannula O2 Flow Rate 3.0 10/26/17 10/26/17 10/26/17 10/26/17 10:10 10:11 12:00 12:12 Temp 98.2 98.2 Pulse 85 85 75 Resp 22 B/P (MAP) 133/33 (66) Pulse Ox 98 99 O2 Delivery Room Air Nasal Cannula O2 Flow Rate 2.0 Intake and Output 10/25/17 10/25/17 10/26/17 15:00 23:00 07:00 Intake Total 800 ml 240 ml 840 ml Output Total 800 ml 500 ml Balance 0 ml 240 ml 340 ml ANNY LORA MD Oct 26, 2017 14:30
--- NOTE | 2017-10-26 14:55 | PDOC ---
SURYA BABCOCK [employer] OPERATOR 10/26/17 1455: CARDIO Progress Notes Date and Time Date of Service 10/26/2017 Time of Evaluation 1410 Subjective Subjective: No Chest Pain, No shortness of breath, No Palpitations Vitals Vitals Vital Signs Date Time Temp Pulse Resp B/P (MAP) Pulse Ox O2 Delivery O2 Flow Rate FiO2 10/26/17 12:12 99 Nasal Cannula 2.0 10/26/17 12:00 98.2 75 22 133/33 (66) 98.2 Weight Weight [ ] Input and Output Intake and Output Intake and Output 10/26/17 07:00 Intake Total 1880 ml Output Total 1300 ml Balance 580 ml Intake Oral 1580 ml IV Total 300 ml Output Urine Total 1300 ml # Voids 1 Laboratory Labs Laboratory Tests Test 10/25/17 17:11 10/25/17 21:02 10/26/17 05:00 10/26/17 08:45 Glucose (Fingerstick) 134 mg/dL (70-99) 156 mg/dL (70-99) 137 mg/dL (70-99) White Blood Count 5.4 x10^3/uL (4.0-11.0) Red Blood Count 3.02 x10^6/uL (3.50-5.40) Hemoglobin 9.5 g/dL (12.0-15.5) Hematocrit 27.1 % (36.0-47.0) Mean Corpuscular Volume 90 fL (79-100) Mean Corpuscular Hemoglobin 32 pg (25-35) Mean Corpuscular Hemoglobin Concent 35 g/dL (31-37) Red Cell Distribution Width 15.9 % (11.5-14.5) Platelet Count 162 x10^3/uL (140-400) Neutrophils (%) (Auto) 72 % (31-73) Lymphocytes (%) (Auto) 16 % (24-48) Monocytes (%) (Auto) 11 % (0-9) Eosinophils (%) (Auto) 2 % (0-3) Basophils (%) (Auto) 0 % (0-3) Neutrophils # (Auto) 3.9 x10^3uL (1.8-7.7) Lymphocytes # (Auto) 0.8 x10^3/uL (1.0-4.8) Monocytes # (Auto) 0.6 x10^3/uL (0.0-1.1) Eosinophils # (Auto) 0.1 x10^3/uL (0.0-0.7) Basophils # (Auto) 0.0 x10^3/uL (0.0-0.2) Sodium Level 144 mmol/L (136-145) Potassium Level 3.9 mmol/L (3.5-5.1) Chloride Level 107 mmol/L (98-107) Carbon Dioxide Level 29 mmol/L (21-32) Anion Gap 8 (6-14) Blood Urea Nitrogen 22 mg/dL (7-20) Creatinine 1.3 mg/dL (0.6-1.0) Estimated GFR (Cockcroft-Gault) 40.6 Glucose Level 128 mg/dL (70-99) Calcium Level 8.3 mg/dL (8.5-10.1) Test 10/26/17 12:44 Glucose (Fingerstick) 170 mg/dL (70-99) Physical Exam HEENT: Neck Supple W Full Motion Chest: Symmetric LUNGS: Clear to Auscultation Heart: S1S2, RRR (SR) Abdomen: Soft N/T Extremities: No Edema, No Calf Tenderness Neurology: alert, oriented, follow commands Assessment Assessment 1. PAFIB very slow ventricular rate on admission: remains in SR. Recent EF and WM. nml. 2. CAD s/p PCI/stent LAD/RCA: cardiac cath 03/2017 showed patent stents. stable. CP free 3. Acute on chronic renal insufficiency, hyponatremia:improved. nephrology following 4. HTN: controlled 5. HLP: statins 6. DM-2: Treat per IM 7. Noncompliance: multiple follow up cancellations 8. Hx of hypothyroidism: was not replacement prior to admission and now been placed. Recommendations: 1. Avoid AV kailey blocking agents for now given her significant bradycardia upon admission. Continue with amiodarone for rhythm maintenance. 2. Continue with secondary prevention. Continue ASA and eliquis. 3. Discussed follow up compliance. Discussed event monitor as outpt to further note any need for future PPM. 4. Follow up in office in 4 weeks. 5. Will need to reschedule colestipol away from her reg medication to avoid chelation. RAND GOLDEN MD 10/26/172101: CARDIO Progress Notes Assessment Assessment Patient seen and examined. Agree with MANAGER SUBWAY's assessment and plan. No further regine arrhythmias noted on tele Plan outpatient event monitor SURYA BABCOCK APRN Oct 26, 2017 14:55 RAND GOLDEN MD Oct 26, 2017 21:02
[2017-10-26] MEDS ORDERED: AMIO200T4 PO (15:36)
[2017-10-26] MEDS ORDERED: FURO40TA4 PO (15:36)
--- NOTE | 2017-10-26 15:39 | PDOC3 ---
Discharge Summary [facility] Date of Admission: Oct 23, 2017 Discharge Date: Oct 26, 2017 Admitting Diagnosis generalized weakness sinus bradycardia h/o AFib on eliquis dm2 on INsuilin hyponatremia hyperkalemia MANDIE, vasomotor HTN hld hypothyroidism h/o CAD with 2 stents asthma stable OA with chronic left ankle pain with fusion sx rt shoulder pain , h/o OA morbid obesity Final Diagnosis CONSULTS card renal Brief Hospital Course Ms. Sylvester is a 67 old F, on eliquis, metoprolol, amiodarone for afib, lasix bid, came for weakness, was found sinus bradycardia, MANDIE. Hr better with metoprolol, amiodarone held. Cr also much better with lasix held and ivf. dc home with decreased amiodarone dose, lasix 40mg daily. She also has rt shoulder pain chronic, fu with [facility]. may benefit from rehab, but due to her insurance issues, she doesnot wanna go somewhere far, and decided to go home. dc time 35min Patient History: FH: colon cancer 32 MOTHER FH: dementia 33 FATHER Family history: Cardiovascular disease (situation) 33 FATHER Family history: Diabetes mellitus (situation) 33 FATHER Family history: Hypertension (situation) 33 FATHER Disposition home health CONDITION AT DISCHARGE: Improved Scheduled Alendronate Sodium (Fosamax), 1 TAB PO WEEKLY, (Reported) Amiodarone Hcl (Amiodarone Hcl), 100 MG PO DAILY Apixaban (Eliquis), 5 MG PO BID, (Reported) Aspirin (Aspir 81), 1 TAB PO DAILY, (Reported) Atorvastatin Calcium (Lipitor), 80 MG PO HS, (Reported) Colestipol Hcl (Colestipol Hcl), 1 GM PO DAILY, (Reported) Ergocalciferol (Vitamin D2) (Vitamin D2), 50,000 UNIT PO TWICE WEEKLY, (Reported ) Ferrous Sulfate (Ferrous Sulfate), 325 MG PO DAILY, (Reported) Fluticasone/Salmeterol (Advair 250-50 Diskus), 1 INH IH BID, (Reported) Furosemide (Furosemide), 40 MG PO DAILY Gabapentin (Gabapentin), 100 MG PO BID, (Reported) Insulin Aspart (Novolog Flexpen), 30 UNIT SQ TIDAC, (Reported) Insulin Glargine,Hum.rec.anlog (Lantus), 52 UNIT SQ BID, (Reported) Ipratropium/Albuterol Sulfate (Duoneb 0.5-3(2.5) Mg/3 Ml), 3 ML IH QID, ( Reported) Isosorbide Mononitrate (Isosorbide Mononitrate Er), 1 TAB PO DAILY, (Reported) Lactobacillus Rhamnosus Gg (Culturelle), 1 CAP PO BID Levothyroxine Sodium (Levothyroxine Sodium), 1 TAB PO DAILY, (Reported) Losartan Potassium (Losartan Potassium), 50 MG PO DAILY, (Reported) Oxybutynin Chloride (Oxybutynin Chloride), 5 MG PO TID, (Reported) Pantoprazole Sodium (Pantoprazole Sodium), 40 MG PO DAILY, (Reported) Potassium Chloride (Potassium Chloride), 20 MEQ PO DAILY, (Reported) Trazodone Hcl (Trazodone Hcl), 200 MG PO HS, (Reported) Venlafaxine Hcl (Venlafaxine Hcl Er), 150 MG PO DAILY, (Reported) Scheduled PRN Albuterol Sulfate (Ventolin Hfa Inhaler), 2 PUFF INH Q4HRS PRN for SHORTNESS OF BREATH, (Reported) Discontinued Medications Amiodarone Hcl (Amiodarone Hcl), 200 MG PO BID, (Reported) Bacitracin (Bacitracin), 1 EACH TP PRN, (Reported) Diclofenac Sodium (Voltaren), 1 GM TP PRN QID PRN for PAIN, (Reported) Fenofibric Acid (Choline) (Fenofibric Acid), 135 MG PO DAILY, (Reported) Furosemide (Furosemide), 40 MG PO BID94, (Reported) Metoprolol Succinate (Metoprolol Succinate ( Xl )), 25 MG PO DAILY, (Reported) Prednisone (Prednisone ), 10 MG PO DAILY, (Reported) ANNY LORA MD Oct 26, 2017 15:39
[2017-10-26] MEDS ORDERED: POTA10TA12 PO (16:20)
--- NOTE | 2017-10-27 01:09 | CONS ---
DATE OF CONSULTATION: 10/26/2017 ORTHOPEDIC CONSULTATION REQUESTING PHYSICIAN: Dr. Polanco. REASON FOR CONSULTATION: Right shoulder pain. HISTORY OF PRESENT ILLNESS: The patient is a 67-year-old female admitted for generalized weakness and bradycardia. She apparently had a syncopal episode prior to admission, lost her balance and fell backwards. No loss of consciousness. Reports some neck discomfort. She states that her right shoulder, however, has been chronically sore and she has had difficulty lifting it over her head for about the past month from a previous injury and fall. She also complains to me about some chronic left ankle pain that has been ongoing even after ankle fusion that was done by Dr. Oh at [facility] 2 years ago. She said that she still has constant pain in her left ankle with weightbearing and the foot feels like it is flopping around and difficulty for her to ambulate. She states that she has not been in, in a long time to see Dr. Oh because she keeps getting sick. PAST MEDICAL HISTORY: Significant for type 2 diabetes, atrial fibrillation, hypercholesterolemia, hypertension, history of heart attack, hypothyroidism, cellulitis and pancytopenia. PAST SURGICAL HISTORY: Significant for previous cardiac stents, cholecystectomy, hysterectomy and the left ankle fusion noted above. MEDICATIONS: Medication list is reviewed. ALLERGIES: She has no known drug allergies. She is in contact isolation. SOCIAL HISTORY: Denies tobacco, alcohol or drug use. FAMILY HISTORY: Diabetes. REVIEW OF SYSTEMS: Significant for the right shoulder pain about a month in duration. The right ankle pain, chronic in duration, unimproved from an ankle fusion 2 years ago at [facility]. PHYSICAL EXAMINATION: On examination, she has no instability of the right shoulder and passive range of motion is adequate. There is no apprehension. She seems to lack significant rotator cuff strength and has some limitation of her passive range of motion as well. She has normal parascapular motion. No direct tenderness on palpation. She has normal examination of the contralateral left shoulder, bilateral elbows and wrists. On examination of the left ankle, she has incisions from what appears to be a hindfoot fusion, likely with a hindfoot nail. There appears to be no instability in the area of the hindfoot. She does have a reasonable accommodative motion at the mid foot and no gross instability noted. No redness, warmth or erythema. No significant swelling noted at all in the left lower extremity or the ankle area. She has normal examination of the contralateral ankle. Normal alignment and stability of bilateral hips and knees. IMAGING: X-rays of the right shoulder show reasonable maintenance of the glenohumeral joint. However, she seems to have a decreased subacromial interval, possibly indicative of a long-term rotator cuff injury. IMPRESSION: 1. Right shoulder pain and weakness one month in duration. 2. Ongoing left ankle and foot pain, status post ankle fusion at [facility] 2 years ago. TREATMENT PLAN: I went over with her treatment options and while I did offer an MRI of her shoulder to further characterize the extent of her rotator cuff issues, at this point, we are still dealing with her medical issues and really based on that, she does not think this would change what is done in terms of her being interested in any surgical intervention. Likewise, in terms of the ankle, I encouraged her to go back for further evaluation at [facility] because it appears as if she has reasonable stability of her fusion, but is having ongoing pain and may need some additional, hopefully, nonoperative treatment consisting of bracing. I think most appropriate to undergo outpatient workup of her right shoulder as well when she is more stable and this can be accomplished at when she follows up with her ankle issues. EUNICE LOFTON MD DR: MAVERICK/stuart JOB#: [id number] / [id number]
== END 2017-10-26 18:50 | disposition home health service (06) | DRG 682 ==
LOC: ER 19:11 → 1 WEST ICU 21:00 → 2 SOUTH 10-25 16:56
PROVIDERS: ADMIT Internal Medicine; ATTEND Internal Medicine
DX: N17.0 Acute kidney failure with tubular necrosis (principal); J96.20 Acute and chronic respiratory failure, unspecified whether with hypoxia or hypercapnia; E87.1 Hypo-osmolality and hyponatremia; Z68.41 Body mass index [BMI] 40.0-44.9, adult; I48.0 Paroxysmal atrial fibrillation; E78.00 Pure hypercholesterolemia, unspecified; E03.9 Hypothyroidism, unspecified; E87.5 Hyperkalemia; E11.65 Type 2 diabetes mellitus with hyperglycemia; E78.5 Hyperlipidemia, unspecified; G47.00 Insomnia, unspecified; D64.9 Anemia, unspecified; E11.22 Type 2 diabetes mellitus with diabetic chronic kidney disease; I25.10 Atherosclerotic heart disease of native coronary artery without angina pectoris; I25.2 Old myocardial infarction; J44.9 Chronic obstructive pulmonary disease, unspecified; K21.9 Gastro-esophageal reflux disease without esophagitis; I12.9 Hypertensive chronic kidney disease with stage 1 through stage 4 chronic kidney disease, or unspecified chronic kidney disease; G89.29 Other chronic pain; M25.511 Pain in right shoulder; M25.572 Pain in left ankle and joints of left foot; E66.01 Morbid (severe) obesity due to excess calories; M19.072 Primary osteoarthritis, left ankle and foot; N18.3 Chronic kidney disease, stage 3 (moderate); E83.51 Hypocalcemia; Z90.710 Acquired absence of both cervix and uterus; Z90.49 Acquired absence of other specified parts of digestive tract; Z95.5 Presence of coronary angioplasty implant and graft; Z79.01 Long term (current) use of anticoagulants; Z83.3 Family history of diabetes mellitus; Z82.49 Family history of ischemic heart disease and other diseases of the circulatory system; Z91.81 History of falling; Z98.1 Arthrodesis status; Z91.19 Patient's noncompliance with other medical treatment and regimen; Z80.0 Family history of malignant neoplasm of digestive organs
CPT/HCPCS: 36415; 70450; 71045; 72125; 80048; 80053; 80162; 82553; 82962; 83735; 84132; 84443; 84484; 85025; 87641; 93005; 93306; 94640; 94760; 96361; 96365; 96375; J0461; J0610; J1815; J7030; J7042; J7620; J7626; 97535; 99285-25

== ENCOUNTER → 2017-11-17 | Outpatient (CLI) | payer OTHER ==
[2017-10-26 12:00] VITALS: BP 133/33
[~2017-11-17] MED LIST changes: +COLE1TAB2 PO; +FERR325T14 PO; +GABA-585 PO; -LOSA100T6 PO; +LOSA100T7 PO; -LOSA50TA6 PO; +LOSA50TA7 PO; +POTA10TA12 PO; -SENN1TAB7 PO; +SENN1TAB8 PO
[2017-11-17 15:17] LABS: CALCIUM 9.1 mg/dL (8.5-10.1); GFR 24.7; POTASSIUM 4.9 mmol/L (3.5-5.1)
== END | disposition home or self-care (01) ==
LOC: SPEC 14:58
PROVIDERS: ATTEND Family Medicine
DX: I13.0 Hypertensive heart and chronic kidney disease with heart failure and stage 1 through stage 4 chronic kidney disease, or unspecified chronic kidney disease (principal); E11.22 Type 2 diabetes mellitus with diabetic chronic kidney disease; I50.9 Heart failure, unspecified; N18.3 Chronic kidney disease, stage 3 (moderate); E78.00 Pure hypercholesterolemia, unspecified; E87.5 Hyperkalemia; J44.9 Chronic obstructive pulmonary disease, unspecified; I25.10 Atherosclerotic heart disease of native coronary artery without angina pectoris; E03.9 Hypothyroidism, unspecified; K21.9 Gastro-esophageal reflux disease without esophagitis; Z79.4 Long term (current) use of insulin; Z86.2 Personal history of diseases of the blood and blood-forming organs and certain disorders involving the immune mechanism; Z87.891 Personal history of nicotine dependence; Z85.3 Personal history of malignant neoplasm of breast; Z85.038 Personal history of other malignant neoplasm of large intestine; Z95.5 Presence of coronary angioplasty implant and graft; Z90.49 Acquired absence of other specified parts of digestive tract; Z90.710 Acquired absence of both cervix and uterus; Z82.49 Family history of ischemic heart disease and other diseases of the circulatory system; Z83.3 Family history of diabetes mellitus; Z80.0 Family history of malignant neoplasm of digestive organs
CPT/HCPCS: 36415; 80048

== ENCOUNTER 2017-12-30 21:03 | Inpatient (IN) | payer OTHER ==
[~2017-12-30] VITALS: Ht 162.6 cm; Wt 99.8 kg
--- NOTE | 2017-12-30 21:45 | PHYS DOC ---
Past Medical History Past Medical History: A-Fib, Diabetes-Type II, High Cholesterol, Hypertension, Hypothyroid, [place] Additional Past Medical Histor: CELLULITIS, PANCYTOPENIA Past Surgical History: Cholecystectomy, Hysterectomy, Other Additional Past Surgical Histo: STENTSx2 Alcohol Use: None Drug Use: None Adult General Chief Complaint Chief Complaint: WEAKNESS/GENERALIZED HPI HPI 67-year-old female presents via EMS from home for evaluation of lightheadedness since yesterday. Patient reports this morning she got up to use the restroom, normally takes her wheelchair in to help her with balance but while she was in there lost her balance, falling backwards onto her buttocks and to the back of her head. She denies any loss of consciousness. She reports her grandson helped her get back up off the floor. She states she is having difficulty with position changes because it makes her so lightheaded she feels like she is going to pass out. Does not feel safe standing up for this reason. She denies any chest pain or shortness of air. She has history of A. fib and is on anticoagulants. Denies any injuries related to the fall. Review of Systems Review of Systems Constitutional: Denies fever or chills [] Eyes: Denies change in visual acuity, redness, or eye pain [] HENT: Denies nasal congestion or sore throat [] Respiratory: Denies cough or shortness of breath [] Cardiovascular: No additional information not addressed in HPI [] GI: Denies abdominal pain, nausea, vomiting, bloody stools or diarrhea [] : Denies dysuria or hematuria [] Musculoskeletal: Denies back pain or joint pain [] Integument: Denies rash or skin lesions [] Neurologic: Denies headache, focal weakness All other systems were reviewed and found to be within normal limits, except as documented in this note. Current Medications Current Medications Current Medications Medications (Trade) Dose Ordered Sig/Kerry Start Time Stop Time Status Last Admin Dose Admin Acetaminophen/ Hydrocodone Bitart (Lortab 5/325) 1 tab 1X ONCE 12/30/17 22:00 12/30/17 22:01 Cancel Allergies Allergies Allergies Coded Allergies Type Severity Reaction Last Updated Verified I S O L A T I O N *CONTACT* Allergy Unknown 10/25/17 Yes No Known Medication Allergies Allergy Unknown 10/25/17 Yes Physical Exam Physical Exam Constitutional: Well developed, well nourished, no acute distress, non-toxic appearance. [] HENT: Normocephalic, atraumatic, bilateral external ears normal, oropharynx moist, no oral exudates, nose normal. [] Eyes: PERRLA, EOMI, conjunctiva normal, no discharge. [] Neck: Normal range of motion, no tenderness, supple, no stridor. [] Cardiovascular:Heart rate regular rhythm, no murmur [] Lungs & Thorax: Bilateral breath sounds clear to auscultation [] Abdomen: Bowel sounds normal, soft, no tenderness, no masses, no pulsatile masses. [] Skin: Warm, dry, no erythema, no rash. [] Back: No tenderness, no CVA tenderness. [] Extremities: No tenderness, no cyanosis, no clubbing, ROM intact, no edema. [] Neurologic: Alert and oriented X 3, normal motor function, normal sensory function, no focal deficits noted. [] Psychologic: Affect normal, judgement normal, mood normal. [] Current Patient Data Vital Signs Vital Signs Date Time Temp Pulse Resp B/P (MAP) Pulse Ox O2 Delivery O2 Flow Rate FiO2 12/30/17 23:02 60 12/30/17 22:30 97 12/30/17 21:05 99.2 16 103/53 (70) Room Air 99.2 Lab Values Laboratory Tests Test 12/30/17 22:20 12/30/17 22:43 White Blood Count 12.0 x10^3/uL (4.0-11.0) H Red Blood Count 3.20 x10^6/uL (3.50-5.40) L Hemoglobin 10.1 g/dL (12.0-15.5) L Hematocrit 28.9 % (36.0-47.0) L Mean Corpuscular Volume 90 fL (79-100) Mean Corpuscular Hemoglobin 32 pg (25-35) Mean Corpuscular Hemoglobin Concent 35 g/dL (31-37) Red Cell Distribution Width 14.8 % (11.5-14.5) H Platelet Count 159 x10^3/uL (140-400) Neutrophils (%) (Auto) 92 % (31-73) H Lymphocytes (%) (Auto) 3 % (24-48) L Monocytes (%) (Auto) 5 % (0-9) Eosinophils (%) (Auto) 0 % (0-3) Basophils (%) (Auto) 0 % (0-3) Neutrophils # (Auto) 11.0 x10^3uL (1.8-7.7) H Lymphocytes # (Auto) 0.4 x10^3/uL (1.0-4.8) L Monocytes # (Auto) 0.6 x10^3/uL (0.0-1.1) Eosinophils # (Auto) 0.0 x10^3/uL (0.0-0.7) Basophils # (Auto) 0.0 x10^3/uL (0.0-0.2) Segmented Neutrophils % 84 % (35-66) H Band Neutrophils % 9 % (0-9) Lymphocytes % 4 % (24-48) L Monocytes % 3 % (0-10) Toxic Vacuolation Slight Platelet Estimate Adequate (ADEQUATE) Prothrombin Time 18.6 SEC (11.7-14.0) H Prothrombin Time INR 1.6 (0.8-1.1) H Sodium Level 127 mmol/L (136-145) L Potassium Level 5.1 mmol/L (3.5-5.1) Chloride Level 91 mmol/L (98-107) L Carbon Dioxide Level 27 mmol/L (21-32) Anion Gap 9 (6-14) Blood Urea Nitrogen 49 mg/dL (7-20) H Creatinine 3.1 mg/dL (0.6-1.0) H Estimated GFR (Cockcroft-Gault) 14.9 BUN/Creatinine Ratio 16 (6-20) Glucose Level 388 mg/dL (70-99) H Calcium Level 8.7 mg/dL (8.5-10.1) Magnesium Level 1.7 mg/dL (1.8-2.4) L Total Bilirubin 0.5 mg/dL (0.2-1.0) Aspartate Amino Transferase (AST) 87 U/L (15-37) H Alanine Aminotransferase (ALT) 75 U/L (14-59) H Alkaline Phosphatase 89 U/L (46-116) Creatine Kinase 258 U/L (26-192) H Creatine Kinase MB (Mass) 1.3 ng/mL (0.0-3.6) Creatine Kinase MB Relative Index 0.5 % (0-4) Troponin I Quantitative 0.055 ng/mL (0.000-0.055) FX-Gwk-V-Type Natriuretic Peptide 8501 pg/mL (0-124) H Total Protein 6.7 g/dL (6.4-8.2) Albumin 2.5 g/dL (3.4-5.0) L Albumin/Globulin Ratio 0.6 (1.0-1.7) L Lipase 43 U/L (73-393) L Urine Collection Type U cath Urine Color Yellow Urine Clarity Cloudy Urine pH 5.0 Urine Specific [place] 1.015 Urine Protein Negative mg/dL (NEG-TRACE) Urine Glucose (UA) 100 mg/dL (NEG) Urine Ketones (Stick) Negative mg/dL (NEG) Urine Blood Moderate (NEG) Urine Nitrite Negative (NEG) Urine Bilirubin Small (NEG) Urine Urobilinogen Dipstick 0.2 mg/dL (0.2 mg/dL) Urine Leukocyte Esterase Large (NEG) Urine RBC 11-20 /HPF (0-2) Urine WBC Tntc /HPF (0-4) Urine Squamous Epithelial Cells Mod /LPF Urine Bacteria Many /HPF (0-FEW) Laboratory Tests 12/30/17 22:20 Laboratory Tests 12/30/17 22:20 EKG EKG [] Radiology/Procedures Radiology/Procedures [PROCEDURE: CT HEAD AND CERVICAL SPINE WO PQRS Compliance statement: One or more of the following individualized dose reduction techniques were utilized for this examination: 1. Automated exposure control. 2. Adjustment of the mA and/or kV according to patient size. 3. Use of iterative reconstruction technique. Indication:PT FELL; HEAD/NECK PAIN TECHNIQUE: CT head without IV contrast COMPARISON:10/23/2017 FINDINGS: No pathologic extra-axial or intra-axial fluid collection. The ventricles and basal cisterns are within normal limits. No acute intracranial bleed. No focal loss of bermudez-white differentiation. The orbits within normal limits. No acute calvarial fractures. Visualized paranasal sinuses and mastoid air cells are clear. IMPRESSION: No acute intracranial process. Indication:PT FELL; HEAD/NECK PAIN TECHNIQUE: CT of the cervical spine without IV contrast with multiplanar reformats. COMPARISON:10/23/2017 FINDINGS: Cervical spine is in normal anatomic alignment. Ankylosis seen from C4-C7 vertebral bodies. Atlantoaxial joint interval is preserved with moderate degenerative changes. Facet joints are in normal anatomic alignment with moderate multilevel facet arthropathy. Most likely partial laminotomies from C6 and C7 vertebral bodies. No acute fractures. The noncontrast appearance of the neck soft tissues is within normal limits. Moderate atherosclerotic burden seen in the bilateral carotid bulbs. Visualized lungs are clear. IMPRESSION: 1. No acute fractures. Electronically signed by: Emeterio Sauceda DO (12/30/2017 10:11 PM) [facility] ] Course & Med Decision Making Course & Med Decision Making Pertinent Labs and Imaging studies reviewed. (See chart for details) [Patient is admitted for UTI and generalized weakness, discussed case with Dr. Fox who accepts admission.] Dragon Disclaimer Dragon Disclaimer This electronic medical record was generated, in whole or in part, using a voice recognition dictation system. Departure Departure Impression: Primary Impression: UTI (urinary tract infection) Additional Impression: Weakness Disposition: ADMITTED INPATIENT Admitting Physician: Alberto Alvarez Condition: STABLE Referrals: STEFANO PENA BELL MAKER (PCP) Problem Qualifiers CHERYLE BARNES COURT MONITOR Dec 30, 2017 21:45
[2017-12-30] MEDS ORDERED: HYDROcodone/APAP 5/325MG 1 TAB TABLET PO ONE (22:00)
--- NOTE | 2017-12-30 22:14 | RAD ---
PQRS Compliance statement: One or more of the following individualized dose reduction techniques were utilized for this examination: 1. Automated exposure control. 2. Adjustment of the mA and/or kV according to patient size. 3. Use of iterative reconstruction technique. Indication:PT FELL; HEAD/NECK PAIN TECHNIQUE: CT head without IV contrast COMPARISON:10/23/2017 FINDINGS: No pathologic extra-axial or intra-axial fluid collection. The ventricles and basal cisterns are within normal limits. No acute intracranial bleed. No focal loss of bermudez-white differentiation. The orbits within normal limits. No acute calvarial fractures. Visualized paranasal sinuses and mastoid air cells are clear. IMPRESSION: No acute intracranial process. Indication:PT FELL; HEAD/NECK PAIN TECHNIQUE: CT of the cervical spine without IV contrast with multiplanar reformats. COMPARISON:10/23/2017 FINDINGS: Cervical spine is in normal anatomic alignment. Ankylosis seen from C4-C7 vertebral bodies. Atlantoaxial joint interval is preserved with moderate degenerative changes. Facet joints are in normal anatomic alignment with moderate multilevel facet arthropathy. Most likely partial laminotomies from C6 and C7 vertebral bodies. No acute fractures. The noncontrast appearance of the neck soft tissues is within normal limits. Moderate atherosclerotic burden seen in the bilateral carotid bulbs. Visualized lungs are clear. IMPRESSION: 1. No acute fractures. Electronically signed by: Emeterio Sauceda DO (12/30/2017 10:11 PM) [facility]
[2017-12-30 22:33] LABS: BASO % 0 % (0-3); EOS % 0 % (0-3); HEMATOCRIT 28.9 % (36.0-47.0); HEMOGLOBIN 10.1 g/dL (12.0-15.5); LYMPH # 0.4 x10^3/uL (1.0-4.8); LYMPH % 3 % (24-48); MEAN CORPUSCULAR HEMOGLOBIN 32 pg (25-35); MEAN CORPUSCULAR HGB CONC 35 g/dL (31-37); MEAN CORPUSCULAR VOLUME 90 fL (79-100); MONO # 0.6 x10^3/uL (0.0-1.1); MONO % 5 % (0-9); NEUT % 92 % (31-73); PLATELET COUNT 159 x10^3/uL (140-400); RED CELL DISTRIBUTION WIDTH 14.8 % (11.5-14.5)
[2017-12-30 22:41] LABS: CALCIUM 8.7 mg/dL (8.5-10.1); CREATININE 3.1 mg/dL (0.6-1.0); GFR 14.9; POTASSIUM 5.1 mmol/L (3.5-5.1)
[2017-12-30 22:43] LABS: PROTHROMBIN TIME PATIENT 18.6 SEC (11.7-14.0)
[2017-12-30 22:47] LABS: ALBUMIN 2.5 g/dL (3.4-5.0); ALBUMIN/GLOBULIN RATIO 0.6 (1.0-1.7); MAGNESIUM 1.7 mg/dL (1.8-2.4); TOTAL BILIRUBIN 0.5 mg/dL (0.2-1.0); TOTAL PROTEIN 6.7 g/dL (6.4-8.2)
[2017-12-30 22:50] LABS: BILIRUBIN,URINE SMALL (NEG); CLARITY,URINE CLOUDY; COLOR,URINE YELLOW; NITRITE,URINE NEGATIVE (NEG); PROTEIN,URINE NEGATIVE (NEG-TRACE); UROBILINOGEN,URINE 0.2 mg/dL (0.2 mg/dL)
[2017-12-30 22:57] LABS: WBC,URINE TNTC /HPF (0-4)
[2017-12-30 22:58] LABS: BACTERIA,URINE MANY /HPF (0-FEW); SQUAMOUS EPITHELIAL CELL,UR MOD /LPF
[2017-12-30 23:16] LABS: % BANDS 9 % (0-9); % LYMPHS 4 % (24-48); % MONOS 3 % (0-10); % SEGS 84 % (35-66)
[2017-12-30 23:17] LABS: PLT ESTIMATE ADEQUATE (ADEQUATE); TOXIC VACUOLATION SLIGHT
[2017-12-30] MEDS ORDERED: ONDANSETRON PF 4 MG/2 ML VIAL. IV PRN (23:30)
[2017-12-30] MEDS ORDERED: MORPHINE SULFATE 2 MG/ML VIAL. IV PRN (23:30)
--- NOTE | 2017-12-30 23:32 | RAD ---
Indication:Short of breath, dizzy TECHNIQUE:Portable AP chest X-ray COMPARISON: 10/23/2017 FINDINGS: Heart is top normal in size. Lungs are clear. No pneumothorax or pleural effusion. Visualized bony thorax within normal limits. IMPRESSION: No acute pulmonary process. Electronically signed by: Emeterio Sauceda DO (12/30/2017 11:29 PM) [facility]
[2017-12-31] MEDS ORDERED: ACETAMINOPHEN 500 MG TABLET PO ONE (01:30)
[2017-12-31] MEDS ORDERED: METO-239 PO (02:50)
[2017-12-31] MEDS ORDERED: HYDR-2758 PO (02:50)
[2017-12-31] MEDS ORDERED: DICL100G18 TP (02:50)
[2017-12-31 02:56] VITALS: BP 137/44
[2017-12-31] MEDS: PIPERACILLIN/TAZOBACTAM 2.25 GM in IV NORMAL SALINE 50ML 50 ML IV SCH ×3 (05:21→21:06)
[2017-12-31] MEDS ORDERED: PIPERACILLIN/TAZOBACTAM 3.375 GM in IV NORMAL SALINE 50ML 50 ML IV SCH (06:00)
[2017-12-31 07:00] VITALS: BP 150/48
--- NOTE | 2017-12-31 07:17 | EKG ---
[facility] [address] [place] [address] Test Date: 2017-12-30 Test Time: 21:38:02 Pat Name: HERBERT LERNER Department: Room: [facility] Gender: F [employer] Property [employer]: : [id number] Requested By: CHERYLE BARNES Order Number: [id number] Reading MD: Juan C Leyva MD Measurements Intervals [place] Rate: 61 P: DE: QRS: -8 QRSD: 88 T: 102 QT: 364 QTc: 371 Interpretive Statements SINUS RHYTHM WITH VERY PROLONGED 1ST DEGREE AVB Electronically Signed On 01-03-2018 11:15:06 CDT by Juan C Leyva MD
[2017-12-31 11:00] VITALS: BP 146/49
--- NOTE | 2017-12-31 12:13 | PDOC1 ---
History and Physical Date of Admission Date of Admission DATE: 12/31/17 TIME: 12:08 Identification/Chief Complaint Chief Complaint sepsis Source Source: Patient History of Present Illness History of Present Illness pt is a 67 y.o F who presented for lightheadness. the patient states that she is already unsteady on her feet. she states that she felt weak and that she had difficulty even moving around the house she asked help from her , having some subjective chills. she does report possibly low grade fever. having some difficulty with her cough and it is productive of white sputum. sx are severe ongoing no radiation no alleviaion or aggravation She has history of A. fib and is on anticoagulants. Denies any injuries related to the fall. Past Medical History Cardiovascular: AFIB, CAD, ID, Hyperlipidemia Pulmonary: COPD GI: GERD Heme/Onc: Cancer Hepatobiliary: No pertinent hx Psych: No pertinent hx Rheumatologic: No pertinent hx Infectious disease: No pertinent hx Renal/: Chronic renal insuff, Urinary Incontinence Endocrine: Diabetes Past Surgical History Past Surgical History: Appendectomy, Cholecystectomy, Hysterectomy, Other Family History Family History: Diabetes, Heart Disease Social History ALCOHOL: none Drugs: None Current Problem List Problem List Problems Medical Problems: (1) UTI (urinary tract infection) Status: Acute (2) Weakness Status: Acute Current Medications Current Medications Current Medications Acetaminophen/ Hydrocodone Bitart (Lortab 5/325) 1 tab 1X ONCE PO ; Start at 22:00; Stop 12/30/17 at 22:01; Status Cancel Ceftriaxone Sodium 50 ml @ 100 mls/hr 1X ONCE IV Last administered on at 01:25; Start 12/30/17 at 23:30; Stop 12/30/17 at 23:59; Status DC Ondansetron HCl (Zofran) 4 mg PRN Q8HRS PRN IV NAUSEA/VOMITING 1ST CHOICE; Start 12/30/17 at 23:30; Stop 12/31/17 at 23:29 Morphine Sulfate (Morphine Sulfate) 2 mg PRN Q2HR PRN IV SEVERE PAIN; Start at 23:30; Stop 12/31/17 at 23:29 Acetaminophen (Tylenol) 1,000 mg 1X ONCE PO Last administered on 12/31/17at 01 :26; Start 12/31/17 at 01:30; Stop 12/31/17 at 01:31; Status DC Piperacillin Sod/ Tazobactam Sod 3.375 gm/Sodium Chloride 50 ml @ 100 mls/hr Q6HRS IV ; Start 12/31/17 at 06:00; Status UNV Levofloxacin/ Dextrose 100 ml @ 100 mls/hr 1X ONCE IV Last administered on at 03:15; Start 12/31/17 at 03:00; Stop 12/31/17 at 03:59; Status DC Piperacillin Sod/ Tazobactam Sod 2.25 gm/Sodium Chloride 50 ml @ 100 mls/hr Q8HRS IV Last administered on 12/31/17at 05:21; Start 12/31/17 at 06:00 Levofloxacin/ Dextrose 50 ml @ 50 mls/hr Q24H IV ; Start 01/01/18 at 06:00 Active Scripts Active Furosemide 40 Mg Tablet 40 Mg PO DAILY 30 Days Amiodarone Hcl 200 Mg Tablet 100 Mg PO DAILY 30 Days Reported Metoprolol Succinate ( Xl ) (Metoprolol Succinate) 25 Mg Tab.er.24h 1 Tab PO DAILY Hydrocodone-Apap 5-325 (Hydrocodone Bit/Acetaminophen) 1 Each Tablet 1 Tab PO PRN Q6HRS PRN Voltaren (Diclofenac Sodium) 100 Gm Gel..gram. 1 Gm TP QID Potassium Chloride 10 Meq Tablet.er 10 Meq PO DAILY Ferrous Sulfate 325 Mg Tablet 325 Mg PO DAILY Gabapentin 100 Mg Capsule 100 Mg PO BID Colestipol Hcl 1 Gm Tablet 1 Gm PO DAILY Oxybutynin Chloride 5 Mg Tablet 5 Mg PO TID Lipitor (Atorvastatin Calcium) 80 Mg Tablet 80 Mg PO HS Levothyroxine Sodium 150 Mcg Tablet 1 Tab PO DAILY Isosorbide Mononitrate Er (Isosorbide Mononitrate) 30 Mg Tab.er.24h 1 Tab PO DAILY Fosamax (Alendronate Sodium) 70 Mg Tablet 1 Tab PO WEEKLY Eliquis (Apixaban) 5 Mg Tablet 5 Mg PO BID Aspir 81 (Aspirin) 81 Mg Tablet.dr 1 Tab PO DAILY Lantus (Insulin Glargine,Hum.rec.anlog) 100 Unit/1 Ml Vial 52 Unit SQ BID MAY INCREASE FOR BLOOD SUGARS GREATER THAN 200 FASTING Advair 250-50 Diskus (Fluticasone/Salmeterol) 1 Each Disk.w.dev 1 Inh IH BID Duoneb 0.5-3(2.5) Mg/3 Ml (Albuterol/Ipratropium) 3 Ml Ampul.neb 3 Ml IH QID Ventolin Hfa Inhaler (Albuterol Sulfate) 18 Gm Hfa.aer.ad 2 Puff INH Q4HRS PRN Venlafaxine Hcl Er (Venlafaxine Hcl) 150 Mg Cap.er.24h 150 Mg PO DAILY Novolog Flexpen (Insulin Aspart) 100 Unit/1 Ml Insuln.pen 30 Unit SQ TIDAC Vitamin D2 (Ergocalciferol (Vitamin D2)) 50,000 Unit Capsule 50,000 Unit PO TWICE WEEKLY Losartan Potassium 50 Mg Tablet 50 Mg PO DAILY Pantoprazole Sodium 40 Mg Tablet.dr 40 Mg PO DAILY Trazodone Hcl 100 Mg Tablet 200 Mg PO HS Allergies Allergies: Coded Allergies: I S O L A T I O N *CONTACT* (Verified Allergy, Unknown, 10/25/17) mrsa No Known Medication Allergies (Verified Allergy, Unknown, 10/25/17) ROS Review of System CONSTITUTIONAL: No fever or chills EYES: No recent changes SKIN: No rash or itching CARDIOVASCULAR: No chest pain, syncope, palpitations, or edema GASTROINTESTINAL: No nausea, vomiting or abdominal pain NEUROLOGICAL: No headaches or weakness ENDOCRINE: No cold or heat intolerance GENITOURINARY: No urgency or frequency of urination MUSCULOSKELETAL: No back pain or joint pain LYMPHATICS: No enlarged lymph nodes PSYCHIATRIC: No anxiety or depression Physical Exam Physical Exam GENERAL: No apparent distress. Alert and oriented. HEENT: Head normocephalic, atraumatic. NECK: Supple LUNGS: Clear to auscultation. HEART: RRR, S1, S2 present, pulses intact ABDOMEN: Soft, positive bowel sounds. EXTREMITIES: No cyanosis , some edema NEUROLOGIC: Normal speech, normal tone PSYCHIATRIC: Normal affect, normal mood. SKIN: No ulceration. Vitals Vitals Vital Signs Date Time Temp Pulse Resp B/P (MAP) Pulse Ox O2 Delivery O2 Flow Rate FiO2 12/31/17 08:45 Nasal Cannula 3.0 12/31/17 07:00 98.2 84 20 150/48 (82) 96 98.2 Labs Labs Laboratory Tests Test 12/30/17 22:20 12/30/17 22:43 12/31/17 01:20 12/31/17 05:40 White Blood Count 12.0 x10^3/uL (4.0-11.0) Red Blood Count 3.20 x10^6/uL (3.50-5.40) Hemoglobin 10.1 g/dL (12.0-15.5) Hematocrit 28.9 % (36.0-47.0) Mean Corpuscular Volume 90 fL (79-100) Mean Corpuscular Hemoglobin 32 pg (25-35) Mean Corpuscular Hemoglobin Concent 35 g/dL (31-37) Red Cell Distribution Width 14.8 % (11.5-14.5) Platelet Count 159 x10^3/uL (140-400) Neutrophils (%) (Auto) 92 % (31-73) Lymphocytes (%) (Auto) 3 % (24-48) Monocytes (%) (Auto) 5 % (0-9) Eosinophils (%) (Auto) 0 % (0-3) Basophils (%) (Auto) 0 % (0-3) Neutrophils # (Auto) 11.0 x10^3uL (1.8-7.7) Lymphocytes # (Auto) 0.4 x10^3/uL (1.0-4.8) Monocytes # (Auto) 0.6 x10^3/uL (0.0-1.1) Eosinophils # (Auto) 0.0 x10^3/uL (0.0-0.7) Basophils # (Auto) 0.0 x10^3/uL (0.0-0.2) Segmented Neutrophils % 84 % (35-66) Band Neutrophils % 9 % (0-9) Lymphocytes % 4 % (24-48) Monocytes % 3 % (0-10) Toxic Vacuolation Slight Platelet Estimate Adequate (ADEQUATE) Prothrombin Time 18.6 SEC (11.7-14.0) Prothromb Time International Ratio 1.6 (0.8-1.1) Sodium Level 127 mmol/L (136-145) Potassium Level 5.1 mmol/L (3.5-5.1) Chloride Level 91 mmol/L (98-107) Carbon Dioxide Level 27 mmol/L (21-32) Anion Gap 9 (6-14) Blood Urea Nitrogen 49 mg/dL (7-20) Creatinine 3.1 mg/dL (0.6-1.0) Estimated GFR (Cockcroft-Gault) 14.9 BUN/Creatinine Ratio 16 (6-20) Glucose Level 388 mg/dL (70-99) Calcium Level 8.7 mg/dL (8.5-10.1) Magnesium Level 1.7 mg/dL (1.8-2.4) Total Bilirubin 0.5 mg/dL (0.2-1.0) Aspartate Amino Transf (AST/SGOT) 87 U/L (15-37) Alanine Aminotransferase (ALT/SGPT) 75 U/L (14-59) Alkaline Phosphatase 89 U/L (46-116) Creatine Kinase 258 U/L (26-192) Creatine Kinase MB (Mass) 1.3 ng/mL (0.0-3.6) Creatine Kinase MB Relative Index 0.5 % (0-4) Troponin I Quantitative 0.055 ng/mL (0.000-0.055) QN-Xgh-H-Type Natriuretic Peptide 8501 pg/mL (0-124) Total Protein 6.7 g/dL (6.4-8.2) Albumin 2.5 g/dL (3.4-5.0) Albumin/Globulin Ratio 0.6 (1.0-1.7) Lipase 43 U/L (73-393) Urine Collection Type U cath Urine Color Yellow Urine Clarity Cloudy Urine pH 5.0 Urine Specific Gary 1.015 Urine Protein Negative mg/dL (NEG-TRACE) Urine Glucose (UA) 100 mg/dL (NEG) Urine Ketones (Stick) Negative mg/dL (NEG) Urine Blood Moderate (NEG) Urine Nitrite Negative (NEG) Urine Bilirubin Small (NEG) Urine Urobilinogen Dipstick 0.2 mg/dL (0.2 mg/dL) Urine Leukocyte Esterase Large (NEG) Urine RBC 11-20 /HPF (0-2) Urine WBC Tntc /HPF (0-4) Urine Squamous Epithelial Cells Mod /LPF Urine Bacteria Many /HPF (0-FEW) Lactic Acid Level 2.4 mmol/L (0.4-2.0) 2.1 mmol/L (0.4-2.0) Test 12/31/17 07:42 12/31/17 09:20 Glucose (Fingerstick) 347 mg/dL (70-99) Lactic Acid Level 1.9 mmol/L (0.4-2.0) Laboratory Tests Test 12/30/17 22:20 12/30/17 22:43 12/31/17 01:20 12/31/17 05:40 White Blood Count 12.0 x10^3/uL (4.0-11.0) Red Blood Count 3.20 x10^6/uL (3.50-5.40) Hemoglobin 10.1 g/dL (12.0-15.5) Hematocrit 28.9 % (36.0-47.0) Mean Corpuscular Volume 90 fL (79-100) Mean Corpuscular Hemoglobin 32 pg (25-35) Mean Corpuscular Hemoglobin Concent 35 g/dL (31-37) Red Cell Distribution Width 14.8 % (11.5-14.5) Platelet Count 159 x10^3/uL (140-400) Neutrophils (%) (Auto) 92 % (31-73) Lymphocytes (%) (Auto) 3 % (24-48) Monocytes (%) (Auto) 5 % (0-9) Eosinophils (%) (Auto) 0 % (0-3) Basophils (%) (Auto) 0 % (0-3) Neutrophils # (Auto) 11.0 x10^3uL (1.8-7.7) Lymphocytes # (Auto) 0.4 x10^3/uL (1.0-4.8) Monocytes # (Auto) 0.6 x10^3/uL (0.0-1.1) Eosinophils # (Auto) 0.0 x10^3/uL (0.0-0.7) Basophils # (Auto) 0.0 x10^3/uL (0.0-0.2) Segmented Neutrophils % 84 % (35-66) Band Neutrophils % 9 % (0-9) Lymphocytes % 4 % (24-48) Monocytes % 3 % (0-10) Toxic Vacuolation Slight Platelet Estimate Adequate (ADEQUATE) Prothrombin Time 18.6 SEC (11.7-14.0) Prothromb Time International Ratio 1.6 (0.8-1.1) Sodium Level 127 mmol/L (136-145) Potassium Level 5.1 mmol/L (3.5-5.1) Chloride Level 91 mmol/L (98-107) Carbon Dioxide Level 27 mmol/L (21-32) Anion Gap 9 (6-14) Blood Urea Nitrogen 49 mg/dL (7-20) Creatinine 3.1 mg/dL (0.6-1.0) Estimated GFR (Cockcroft-Gault) 14.9 BUN/Creatinine Ratio 16 (6-20) Glucose Level 388 mg/dL (70-99) Calcium Level 8.7 mg/dL (8.5-10.1) Magnesium Level 1.7 mg/dL (1.8-2.4) Total Bilirubin 0.5 mg/dL (0.2-1.0) Aspartate Amino Transf (AST/SGOT) 87 U/L (15-37) Alanine Aminotransferase (ALT/SGPT) 75 U/L (14-59) Alkaline Phosphatase 89 U/L (46-116) Creatine Kinase 258 U/L (26-192) Creatine Kinase MB (Mass) 1.3 ng/mL (0.0-3.6) Creatine Kinase MB Relative Index 0.5 % (0-4) Troponin I Quantitative 0.055 ng/mL (0.000-0.055) QI-Tgq-T-Type Natriuretic Peptide 8501 pg/mL (0-124) Total Protein 6.7 g/dL (6.4-8.2) Albumin 2.5 g/dL (3.4-5.0) Albumin/Globulin Ratio 0.6 (1.0-1.7) Lipase 43 U/L (73-393) Urine Collection Type U cath Urine Color Yellow Urine Clarity Cloudy Urine pH 5.0 Urine Specific Gary 1.015 Urine Protein Negative mg/dL (NEG-TRACE) Urine Glucose (UA) 100 mg/dL (NEG) Urine Ketones (Stick) Negative mg/dL (NEG) Urine Blood Moderate (NEG) Urine Nitrite Negative (NEG) Urine Bilirubin Small (NEG) Urine Urobilinogen Dipstick 0.2 mg/dL (0.2 mg/dL) Urine Leukocyte Esterase Large (NEG) Urine RBC 11-20 /HPF (0-2) Urine WBC Tntc /HPF (0-4) Urine Squamous Epithelial Cells Mod /LPF Urine Bacteria Many /HPF (0-FEW) Lactic Acid Level 2.4 mmol/L (0.4-2.0) 2.1 mmol/L (0.4-2.0) Test 12/31/17 07:42 10/26/18 09:20 Glucose (Fingerstick) 347 mg/dL (70-99) Lactic Acid Level 1.9 mmol/L (0.4-2.0) VTE Prophylaxis Ordered VTE Prophylaxis Devices: No VTE Pharmacological Prophylaxi: Yes Assessment/Plan Assessment/Plan #severe sepsis #bacteremia #gram pos pneumonia #Acute renal failure #obesity #copd #afib #hypercoagulable state Plan - vanc/zosyn/levo - bolus fluids - maintannace - consult id - see orders - restart meds - may need insulin gt MARY JOHNSTON MD Dec 31, 2017 12:13
[2017-12-31] MEDS ORDERED: INSULIN REGULAR VIAL 150 UNIT in 0.9 % SODIUM CHLORIDE 150ML 150 ML IV PRN (12:15)
[2017-12-31] MEDS: IV NORMAL SALINE 1000ML BAG 1,000 ML IV SCH ×2 (12:15→22:15)
[2017-12-31] MEDS ORDERED: VANCOMYCIN 1 GM in IV NORMAL SALINE 250ML 250 ML IV SCH (12:15)
[2017-12-31] MEDS ORDERED: VANCOMYCIN PER PHARMACY MC PRN (12:30)
[2017-12-31] MEDS ORDERED: VANCOMYCIN 2 GM in IV NORMAL SALINE 500ML BAG 500 ML IV ONE (13:00)
[2017-12-31] MEDS ORDERED: VANCOMYCIN 1.75 GM in IV NORMAL SALINE 500ML BAG 500 ML IV ONE (13:00)
[2017-12-31] MEDS: IPRATRPIUM/ALBUTEROL 0.5/2.5MG 3 ML NEBU. IH SCH ×3 (13:00→20:16)
[2017-12-31] MEDS ORDERED: IV NORMAL SALINE 1000ML BAG 1,000 ML IV ONE (13:00)
[2017-12-31] MEDS: ASPIRIN ENTERIC COATED 81 MG TABLET.DR. PO SCH (14:31)
[2017-12-31] MEDS: APIXABAN 5 MG TABLET. PO SCH ×2 (14:32→20:57)
[2017-12-31] MEDS: PANTOPRAZOLE 40 MG TABLET.DR. PO SCH (14:32)
[2017-12-31] MEDS: AMIODARONE HCL 200 MG TABLET. PO SCH (14:32)
[2017-12-31 15:00] VITALS: BP 177/63
[2017-12-31] MEDS: ANTI-COAG MONITOR BY PHARMACY. MC PRN (16:02)
[2017-12-31] MEDS: LEVOTHYROXINE 150 MCG TABLET PO SCH (16:49)
[2017-12-31 19:00] VITALS: BP 134/45
[2017-12-31] MEDS ORDERED: HYDROcodone/APAP 5/325MG 1 TAB TABLET PO PRN (19:00)
[2017-12-31] MEDS ORDERED: NON FORMULARY ITEM (Albuterol Sulfate (Ventolin Hfa Inhaler) 2 PUFF) INH PRN (19:00)
[2017-12-31] MEDS ORDERED: ALBUTEROL SULFATE 2.5 MG/3 ML NEBU. NEB PRN (19:30)
[2017-12-31] MEDS: METOPROLOL SUCC 24HR ER 25 MG TAB.ER.24H. PO SCH (20:00)
[2017-12-31] MEDS: LOSARTAN POTASSIUM 50 MG TABLET. PO SCH (20:00)
[2017-12-31] MEDS ORDERED: ALBUTEROL SULFATE 2.5 MG/3 ML NEBU. NEB SCH (20:00)
[2017-12-31] MEDS: BUDESONIDE 0.5 MG/2 ML NEBU. NEB SCH (20:17)
[2017-12-31] MEDS: GABAPENTIN 100 MG CAPSULE. PO SCH (20:57)
[2017-12-31] MEDS: OXYBUTYNIN CHLORIDE 5 MG TABLET PO SCH (20:57)
[2017-12-31] MEDS: traZODone 100 MG TABLET. PO SCH (20:57)
[2017-12-31] MEDS: ATORVASTATIN CALCIUM 40 MG TABLET. PO SCH (20:57)
[2017-12-31] MEDS: LACTOBACILLUS RHAMNOSUS GG 1 CAPSULE. PO SCH (20:57)
[2017-12-31] MEDS ORDERED: NON FORMULARY ITEM (Fluticasone/Salmeterol (Advair 250-50 Diskus) 1 INH) IH SCH (21:00)
[2017-12-31] MEDS: INSULIN LISPRO 300 UNITS/3 ML INSULN.PEN. SQ SCH (21:04)
[2017-12-31] MEDS: INSULIN GLARGINE 300 UNITS/3 ML INSULN.PEN. SQ SCH (21:05)
[2017-12-31] MEDS: DICLOFENAC SODIUM 1% TOPICAL GEL 100GM TUBE. TP SCH (21:06)
[2017-12-31 23:00] VITALS: BP 134/52
[2018-01-01 03:00] VITALS: BP 114/45
[2018-01-01] MEDS ORDERED: VANCOMYCIN RANDOM LEVEL. MC ONE (03:00)
[2018-01-01] MEDS: PIPERACILLIN/TAZOBACTAM 2.25 GM in IV NORMAL SALINE 50ML 50 ML IV SCH ×3 (04:59→22:37)
[2018-01-01] MEDS: LEVOTHYROXINE 150 MCG TABLET PO SCH (05:00)
[2018-01-01 05:55] LABS: CALCIUM 7.6 mg/dL (8.5-10.1); CREATININE 2.1 mg/dL (0.6-1.0); GFR 23.4
[2018-01-01 07:00] VITALS: BP 115/52
[2018-01-01] MEDS: IPRATRPIUM/ALBUTEROL 0.5/2.5MG 3 ML NEBU. IH SCH ×4 (08:00→19:07)
[2018-01-01] MEDS: INSULIN LISPRO 300 UNITS/3 ML INSULN.PEN. SQ SCH ×6 (08:00→18:29)
[2018-01-01] MEDS ORDERED: ONDANSETRON ODT 4 MG TAB.RAPDIS. PO PRN (08:15)
[2018-01-01] MEDS ORDERED: ONDANSETRON PF 4 MG/2 ML VIAL. IV PRN (08:15)
[2018-01-01] MEDS ORDERED: MORPHINE SULFATE 2 MG/ML VIAL. IV PRN (08:15)
[2018-01-01] MEDS: PANTOPRAZOLE 40 MG TABLET.DR. PO SCH (08:57)
[2018-01-01] MEDS: HYDROcodone/APAP 5/325MG 1 TAB TABLET PO PRN (08:57)
[2018-01-01] MEDS: ASPIRIN ENTERIC COATED 81 MG TABLET.DR. PO SCH (08:58)
[2018-01-01] MEDS: COLESTIPOL HCL 1 GM TABLET PO SCH (08:58)
[2018-01-01] MEDS: POTASSIUM CHLORIDE 10 MEQ TABLET.ER. PO SCH (08:58)
[2018-01-01] MEDS: GABAPENTIN 100 MG CAPSULE. PO SCH ×2 (08:58→21:08)
[2018-01-01] MEDS: LACTOBACILLUS RHAMNOSUS GG 1 CAPSULE. PO SCH ×2 (08:58→21:07)
[2018-01-01] MEDS: OXYBUTYNIN CHLORIDE 5 MG TABLET PO SCH ×3 (08:58→21:07)
[2018-01-01] MEDS: AMIODARONE HCL 200 MG TABLET. PO SCH (08:59)
[2018-01-01] MEDS: IV NORMAL SALINE 1000ML BAG 1,000 ML IV SCH ×2 (09:00→22:37)
[2018-01-01] MEDS ORDERED: FERROUS SULFATE 325 MG TABLET. PO SCH (09:00)
[2018-01-01] MEDS: LOSARTAN POTASSIUM 50 MG TABLET. PO SCH (09:00)
[2018-01-01] MEDS: VENLAFAXINE 50 MG TABLET. PO SCH ×3 (09:00→21:07)
[2018-01-01] MEDS: APIXABAN 5 MG TABLET. PO SCH ×2 (09:01→21:07)
[2018-01-01] MEDS: FUROSEMIDE 40 MG TABLET. PO SCH (09:01)
[2018-01-01] MEDS: ISOSORBIDE MONONITRATE ER 30 MG TAB.ER.24H PO SCH (09:02)
[2018-01-01] MEDS: METOPROLOL SUCC 24HR ER 25 MG TAB.ER.24H. PO SCH (09:02)
[2018-01-01] MEDS: INSULIN GLARGINE 300 UNITS/3 ML INSULN.PEN. SQ SCH ×2 (09:21→23:15)
[2018-01-01] MEDS: DICLOFENAC SODIUM 1% TOPICAL GEL 100GM TUBE. TP SCH ×4 (09:21→21:09)
[2018-01-01 09:28] LABS: BASO % 0 % (0-3); EOS % 0 % (0-3); HEMATOCRIT 25.9 % (36.0-47.0); HEMOGLOBIN 8.9 g/dL (12.0-15.5); LYMPH # 0.6 x10^3/uL (1.0-4.8); LYMPH % 6 % (24-48); MEAN CORPUSCULAR HEMOGLOBIN 31 pg (25-35); MEAN CORPUSCULAR HGB CONC 34 g/dL (31-37); MEAN CORPUSCULAR VOLUME 90 fL (79-100); MONO # 1.1 x10^3/uL (0.0-1.1); MONO % 11 % (0-9); NEUT # 8.4 x10^3uL (1.8-7.7); NEUT % 83 % (31-73); PLATELET COUNT 113 x10^3/uL (140-400); RED BLOOD COUNT 2.86 x10^6/uL (3.50-5.40); WHITE BLOOD COUNT 10.1 x10^3/uL (4.0-11.0)
--- NOTE | 2018-01-01 09:32 | PDOC ---
PROGRESS NOTES Chief Complaint Chief Complaint UTI Generalized weakness-needing SNU or rehabilitation-agreeable BMI 48, overweight Strep bacteremia Back pain status post back injections by physiatry 12/31/17 Sepsis, with no organ dysfunction-leukocytosis 12, positive blood cultures Anemia of chronic disease, hemoglobin 10 Left ankle pain-has follow-up outpatient with ortho History of Present Illness History of Present Illness She mostly complains of back pain and left ankle pain. Left ankle pain is most severe when I try to examine her. Back pain seems to be better on the spot where she got injections by physiatry yesterday She did fall hurting her left ankle within this week at home Is agreeable to SNU or rehabilitation if recommended by PT OT Called by RN yesterday, strep bacteremia blood cultures ID on board Plan: Follow identification sensitivities, continue IV abx per ID Add PTOT Add orthopedics consult, left ankle pain is so uncomfortable and painful has follow-up scheduled as outpatient - will do the appt now in house Check left ankle x-ray Discussed with RN at bedside Vitals Vitals Vital Signs Date Time Temp Pulse Resp B/P (MAP) Pulse Ox O2 Delivery O2 Flow Rate FiO2 01/01/18 09:02 87 115/52 01/01/18 08:57 Nasal Cannula 3.0 01/01/18 08:16 98 01/01/18 03:00 98.6 18 98.6 Physical Exam General: Alert, Oriented X3, Cooperative Heart: Regular rate, Normal S1, Normal S2 Lungs: Clear, Other Abdomen: Normal bowel sounds, Soft Extremities: Other (left ankle scar/tenderness, pain on palpation) Skin: No rashes, No breakdown, No significant lesion Labs LABS Laboratory Tests Test 12/31/17 12:08 12/31/17 14:25 12/31/17 15:39 12/31/17 16:46 Glucose (Fingerstick) 402 mg/dL (70-99) 405 mg/dL (70-99) 376 mg/dL (70-99) 245 mg/dL (70-99) Test 12/31/17 17:50 12/31/17 18:56 12/31/17 20:47 12/31/17 20:55 Glucose (Fingerstick) 178 mg/dL (70-99) 182 mg/dL (70-99) 197 mg/dL (70-99) 202 mg/dL (70-99) Test 01/01/18 03:30 01/01/18 07:28 Sodium Level 134 mmol/L (136-145) Potassium Level 4.0 mmol/L (3.5-5.1) Chloride Level 99 mmol/L (98-107) Carbon Dioxide Level 27 mmol/L (21-32) Anion Gap 8 (6-14) Blood Urea Nitrogen 48 mg/dL (7-20) Creatinine 2.1 mg/dL (0.6-1.0) Estimated GFR (Cockcroft-Gault) 23.4 Glucose Level 228 mg/dL (70-99) Calcium Level 7.6 mg/dL (8.5-10.1) Glucose (Fingerstick) 236 mg/dL (70-99) Review of Systems Review of Systems Left ankle pain, back pain, weak, the rest of ROS 14 point negative Assessment and Plan Assessmemt and Plan Problems Medical Problems: (1) UTI (urinary tract infection) Status: Acute (2) Weakness Status: Acute Comment Review of Relevant I have reviewed the following items brooke (where applicable) has been applied. Labs Laboratory Tests Test 12/30/17 22:20 12/30/17 22:43 12/31/17 01:20 12/31/17 03:00 White Blood Count 12.0 x10^3/uL (4.0-11.0) Red Blood Count 3.20 x10^6/uL (3.50-5.40) Hemoglobin 10.1 g/dL (12.0-15.5) Hematocrit 28.9 % (36.0-47.0) Mean Corpuscular Volume 90 fL (79-100) Mean Corpuscular Hemoglobin 32 pg (25-35) Mean Corpuscular Hemoglobin Concent 35 g/dL (31-37) Red Cell Distribution Width 14.8 % (11.5-14.5) Platelet Count 159 x10^3/uL (140-400) Neutrophils (%) (Auto) 92 % (31-73) Lymphocytes (%) (Auto) 3 % (24-48) Monocytes (%) (Auto) 5 % (0-9) Eosinophils (%) (Auto) 0 % (0-3) Basophils (%) (Auto) 0 % (0-3) Neutrophils # (Auto) 11.0 x10^3uL (1.8-7.7) Lymphocytes # (Auto) 0.4 x10^3/uL (1.0-4.8) Monocytes # (Auto) 0.6 x10^3/uL (0.0-1.1) Eosinophils # (Auto) 0.0 x10^3/uL (0.0-0.7) Basophils # (Auto) 0.0 x10^3/uL (0.0-0.2) Segmented Neutrophils % 84 % (35-66) Band Neutrophils % 9 % (0-9) Lymphocytes % 4 % (24-48) Monocytes % 3 % (0-10) Toxic Vacuolation Slight Platelet Estimate Adequate (ADEQUATE) Prothrombin Time 18.6 SEC (11.7-14.0) Prothromb Time International Ratio 1.6 (0.8-1.1) Sodium Level 127 mmol/L (136-145) Potassium Level 5.1 mmol/L (3.5-5.1) Chloride Level 91 mmol/L (98-107) Carbon Dioxide Level 27 mmol/L (21-32) Anion Gap 9 (6-14) Blood Urea Nitrogen 49 mg/dL (7-20) Creatinine 3.1 mg/dL (0.6-1.0) Estimated GFR (Cockcroft-Gault) 14.9 BUN/Creatinine Ratio 16 (6-20) Glucose Level 388 mg/dL (70-99) Calcium Level 8.7 mg/dL (8.5-10.1) Magnesium Level 1.7 mg/dL (1.8-2.4) Total Bilirubin 0.5 mg/dL (0.2-1.0) Aspartate Amino Transf (AST/SGOT) 87 U/L (15-37) Alanine Aminotransferase (ALT/SGPT) 75 U/L (14-59) Alkaline Phosphatase 89 U/L (46-116) Creatine Kinase 258 U/L (26-192) Creatine Kinase MB (Mass) 1.3 ng/mL (0.0-3.6) Creatine Kinase MB Relative Index 0.5 % (0-4) Troponin I Quantitative 0.055 ng/mL (0.000-0.055) HU-Xrs-D-Type Natriuretic Peptide 8501 pg/mL (0-124) Total Protein 6.7 g/dL (6.4-8.2) Albumin 2.5 g/dL (3.4-5.0) Albumin/Globulin Ratio 0.6 (1.0-1.7) Lipase 43 U/L (73-393) Urine Collection Type U cath Urine Color Yellow Urine Clarity Cloudy Urine pH 5.0 Urine Specific [place] 1.015 Urine Protein Negative mg/dL (NEG-TRACE) Urine Glucose (UA) 100 mg/dL (NEG) Urine Ketones (Stick) Negative mg/dL (NEG) Urine Blood Moderate (NEG) Urine Nitrite Negative (NEG) Urine Bilirubin Small (NEG) Urine Urobilinogen Dipstick 0.2 mg/dL (0.2 mg/dL) Urine Leukocyte Esterase Large (NEG) Urine RBC 11-20 /HPF (0-2) Urine WBC Tntc /HPF (0-4) Urine Squamous Epithelial Cells Mod /LPF Urine Bacteria Many /HPF (0-FEW) Lactic Acid Level 2.4 mmol/L (0.4-2.0) Nasal Screen MRSA (PCR) Positive (Negative) Test 12/31/17 05:40 12/31/17 07:42 12/31/17 09:20 12/31/17 12:08 Lactic Acid Level 2.1 mmol/L (0.4-2.0) 1.9 mmol/L (0.4-2.0) Glucose (Fingerstick) 347 mg/dL (70-99) 402 mg/dL (70-99) Test 12/31/17 14:25 12/31/17 15:39 12/31/17 16:46 12/31/17 17:50 Glucose (Fingerstick) 405 mg/dL (70-99) 376 mg/dL (70-99) 245 mg/dL (70-99) 178 mg/dL (70-99) Test 12/31/17 18:56 12/31/17 20:47 12/31/17 20:55 01/01/18 03:30 Glucose (Fingerstick) 182 mg/dL (70-99) 197 mg/dL (70-99) 202 mg/dL (70-99) Sodium Level 134 mmol/L (136-145) Potassium Level 4.0 mmol/L (3.5-5.1) Chloride Level 99 mmol/L (98-107) Carbon Dioxide Level 27 mmol/L (21-32) Anion Gap 8 (6-14) Blood Urea Nitrogen 48 mg/dL (7-20) Creatinine 2.1 mg/dL (0.6-1.0) Estimated GFR (Cockcroft-Gault) 23.4 Glucose Level 228 mg/dL (70-99) Calcium Level 7.6 mg/dL (8.5-10.1) Test 01/01/18 07:28 Glucose (Fingerstick) 236 mg/dL (70-99) Laboratory Tests Test 12/31/17 12:08 12/31/17 14:25 12/31/17 15:39 12/31/17 16:46 Glucose (Fingerstick) 402 mg/dL (70-99) 405 mg/dL (70-99) 376 mg/dL (70-99) 245 mg/dL (70-99) Test 12/31/17 17:50 12/31/17 18:56 12/31/17 20:47 12/31/17 20:55 Glucose (Fingerstick) 178 mg/dL (70-99) 182 mg/dL (70-99) 197 mg/dL (70-99) 202 mg/dL (70-99) Test 01/01/18 03:30 01/01/18 07:28 Sodium Level 134 mmol/L (136-145) Potassium Level 4.0 mmol/L (3.5-5.1) Chloride Level 99 mmol/L (98-107) Carbon Dioxide Level 27 mmol/L (21-32) Anion Gap 8 (6-14) Blood Urea Nitrogen 48 mg/dL (7-20) Creatinine 2.1 mg/dL (0.6-1.0) Estimated GFR (Cockcroft-Gault) 23.4 Glucose Level 228 mg/dL (70-99) Calcium Level 7.6 mg/dL (8.5-10.1) Glucose (Fingerstick) 236 mg/dL (70-99) Microbiology 12/31/17 Blood Culture - Final, Complete Medications Current Medications Acetaminophen/ Hydrocodone Bitart (Lortab 5/325) 1 tab 1X ONCE PO ; Start at 22:00; Stop 12/30/17 at 22:01; Status Cancel Ceftriaxone Sodium 50 ml @ 100 mls/hr 1X ONCE IV Last administered on at 01:25; Start 12/30/17 at 23:30; Stop 12/30/17 at 23:59; Status DC Ondansetron HCl (Zofran) 4 mg PRN Q8HRS PRN IV NAUSEA/VOMITING 1ST CHOICE; Start 12/30/17 at 23:30; Stop 12/31/17 at 23:29; Status DC Morphine Sulfate (Morphine Sulfate) 2 mg PRN Q2HR PRN IV SEVERE PAIN; Start at 23:30; Stop 12/31/17 at 23:29; Status DC Acetaminophen (Tylenol) 1,000 mg 1X ONCE PO Last administered on 12/31/17at 01 :26; Start 12/31/17 at 01:30; Stop 12/31/17 at 01:31; Status DC Piperacillin Sod/ Tazobactam Sod 3.375 gm/Sodium Chloride 50 ml @ 100 mls/hr Q6HRS IV ; Start 12/31/17 at 06:00; Status UNV Levofloxacin/ Dextrose 100 ml @ 100 mls/hr 1X ONCE IV Last administered on at 03:15; Start 12/31/17 at 03:00; Stop 12/31/17 at 03:59; Status DC Piperacillin Sod/ Tazobactam Sod 2.25 gm/Sodium Chloride 50 ml @ 100 mls/hr Q8HRS IV Last administered on 01/01/18at 04:59; Start 12/31/17 at 06:00 Levofloxacin/ Dextrose 50 ml @ 50 mls/hr Q24H IV Last administered on at 04:59; Start 01/01/18 at 06:00 Sodium Chloride 1,000 ml @ 1,000 mls/hr 1X ONCE IV Last administered on 12/31at 13:00; Start 12/31/17 at 13:00; Stop 12/31/17 at 13:59; Status DC Sodium Chloride 1,000 ml @ 100 mls/hr Q10H IV Last administered on 01/01/18at 09:00; Start 12/31/17 at 12:15 Vancomycin HCl 1 gm/Sodium Chloride 250 ml @ 250 mls/hr Q24H IV ; Start at 12:15; Status UNV Insulin Human Regular 150 unit/ Sodium Chloride 151.5 ml @ 0 mls/hr CONT PRN IV SEE I/O RECORD Last administered on 12/31/17at 14:37; Start 12/31/17 at 12: 15; Stop 12/31/17 at 18:59; Status DC Amiodarone HCl (Cordarone) 100 mg DAILY PO Last administered on 01/01/18at 08: 59; Start 12/31/17 at 13:00 Apixaban (Eliquis) 5 mg BID PO Last administered on 01/01/18at 09:01; Start at 13:00 Aspirin (Ecotrin) 81 mg DAILY PO Last administered on 01/01/18at 08:58; Start 12/31/17 at 13:00 Albuterol/ Ipratropium (Duoneb) 3 ml RTQID IH Last administered on 12/31/17at 20:16; Start 12/31/17 at 13:00 Pantoprazole Sodium (Protonix) 40 mg DAILYAC PO Last administered on at 08:57; Start 12/31/17 at 13:00 Info (Anti-Coagulation Monitoring By Pharmacy) 1 each PRN DAILY PRN MC SEE COMMENTS Last administered on 12/31/17at 16:02; Start 12/31/17 at 12:30 Vancomycin HCl 1.75 gm/Sodium Chloride 500 ml @ 250 mls/hr 1X ONCE IV ; Start 12/31/17 at 13:00; Stop 12/31/17 at 14:59; Status Cancel Vancomycin HCl (Vanco Per Pharmacy) 1 each PRN DAILY PRN MC SEE COMMENTS Last administered on 12/31/17at 16:03; Start 12/31/17 at 12:30 Vancomycin HCl 2 gm/Sodium Chloride 500 ml @ 250 mls/hr 1X ONCE IV Last administered on 12/31/17at 13:08; Start 12/31/17 at 13:00; Stop 12/31/17 at 14 :59; Status DC Levothyroxine Sodium (Synthroid) 150 mcg DAILY06 PO Last administered on at 05:00; Start 12/31/17 at 16:30 Vancomycin HCl (Vancomycin Random Level) 1 each 1X ONCE MC ; Start 01/02/18 at 13:00; Stop 01/02/18 at 13:01 Lactobacillus Rhamnosus (Culturelle) 1 cap BID PO Last administered on 08:58; Start 12/31/17 at 21:00 Colestipol HCl (Colestid) 1 gm DAILY PO Last administered on 01/01/18 08:58; Start 01/01/18 at 09:00 Diclofenac Sodium (Voltaren) 1 myrtle QID TP Last administered on 01/01/18 09:21 ; Start 12/31/17 at 21:00 Ferrous Sulfate (Feosol) 325 mg DAILY PO Last administered on 01/01/18 08:59 ; Start 01/01/18 at 09:00 Furosemide (Lasix) 40 mg DAILY PO Last administered on 01/01/18 09:01; Start 01/01/18 at 09:00 Gabapentin (Neurontin) 100 mg BID PO Last administered on 01/01/18 08:58; Start 12/31/17 at 21:00 Acetaminophen/ Hydrocodone Bitart (Lortab 5/325) 1 tab PRN Q6HRS PRN PO PAIN Last administered on 12/31/17 22:23; Start 12/31/17 at 19:00; Stop 01/01/18 at 08:14; Status DC Isosorbide Mononitrate (Imdur) 30 mg DAILY PO Last administered on 01/01/18 09:02; Start 01/01/18 at 09:00 Losartan Potassium (Cozaar) 50 mg DAILY PO ; Start 12/31/17 at 20:00 Metoprolol Succinate (Toprol Xl) 25 mg DAILY PO Last administered on 09:02; Start 12/31/17 at 20:00 Oxybutynin Chloride (Ditropan) 5 mg TID PO Last administered on 01/01/18 08: 58; Start 12/31/17 at 21:00 Potassium Chloride (Klor-Con) 10 meq DAILY PO Last administered on 01/01/18 08:58; Start 01/01/18 at 09:00 Trazodone HCl (Desyrel) 200 mg HS PO Last administered on 12/31/17at 20:57; Start 12/31/17 at 21:00 Non-Formulary Medication (Albuterol Sulfate (Ventolin Hfa Inhaler)) 2 puff Q4HRS PRN INH SHORTNESS OF BREATH; Start 12/31/17 at 19:00; Status UNV Non-Formulary Medication (Alendronate Sodium (Fosamax)) 1 tab WEEKLY PO ; Start 01/07/18 at 09:00; Status UNV Atorvastatin Calcium (Lipitor) 80 mg QHS PO Last administered on 12/31/17at 20: 57; Start 12/31/17 at 21:00 Non-Formulary Medication (Fluticasone/ Salmeterol (Advair 250-50 Diskus)) 1 inh BID IH ; Start 12/31/17 at 21:00; Status UNV Insulin Human Lispro (HumaLOG) 30 units TIDWMEALS SQ ; Start 01/01/18 at 08:00 Insulin Glargine (Lantus) 52 units BID SQ Last administered on 01/01/18at 09:21 ; Start 12/31/17 at 21:00 Venlafaxine HCl (Effexor) 50 mg TID PO Last administered on 01/01/18at 09:00; Start 01/01/18 at 09:00 Insulin Human Lispro (HumaLOG) 0-9 UNITS TIDWMEALS SQ Last administered on at 09:20; Start 12/31/17 at 20:00 Dextrose (Dextrose 50%-Water Syringe) 12.5 gm PRN Q15MIN PRN IV SEE COMMENTS; Start 12/31/17 at 19:00 Budesonide (Pulmicort) 0.5 mg RTBID NEB Last administered on 12/31/17at 20:17; Start 12/31/17 at 20:00 Albuterol Sulfate (Ventolin Neb Soln) 2.5 mg RTQID NEB ; Start 12/31/17 at 20: 00; Status UNV Albuterol Sulfate (Ventolin Neb Soln) 2.5 mg PRN Q4HRS PRN NEB SHORTNESS OF BREATH; Start 12/31/17 at 19:30 Morphine Sulfate (Morphine Sulfate) 2 mg PRN Q2HR PRN IV PAIN MILD; Start at 08:15 Acetaminophen/ Hydrocodone Bitart (Lortab 5/325) 1 tab PRN Q4HRS PRN PO PAIN Last administered on 01/01/18at 08:57; Start 01/01/18 at 08:15 Ondansetron HCl (Zofran) 4 mg PRN Q6HRS PRN IV NAUSEA/VOMITING 1ST CHOICE; Start 01/01/18 at 08:15 Ondansetron HCl (Zofran Odt) 4 mg PRN Q6HRS PRN PO NAUSEA/VOMITING 1ST CHOICE; Start 01/01/18 at 08:15 Active Scripts Active Furosemide 40 Mg Tablet 40 Mg PO DAILY 30 Days Amiodarone Hcl 200 Mg Tablet 100 Mg PO DAILY 30 Days Reported Metoprolol Succinate ( Xl ) (Metoprolol Succinate) 25 Mg Tab.er.24h 1 Tab PO DAILY Hydrocodone-Apap 5-325 (Hydrocodone Bit/Acetaminophen) 1 Each Tablet 1 Tab PO PRN Q6HRS PRN Voltaren (Diclofenac Sodium) 100 Gm Gel..gram. 1 Gm TP QID Potassium Chloride 10 Meq Tablet.er 10 Meq PO DAILY Ferrous Sulfate 325 Mg Tablet 325 Mg PO DAILY Gabapentin 100 Mg Capsule 100 Mg PO BID Colestipol Hcl 1 Gm Tablet 1 Gm PO DAILY Oxybutynin Chloride 5 Mg Tablet 5 Mg PO TID Lipitor (Atorvastatin Calcium) 80 Mg Tablet 80 Mg PO HS Levothyroxine Sodium 150 Mcg Tablet 1 Tab PO DAILY Isosorbide Mononitrate Er (Isosorbide Mononitrate) 30 Mg Tab.er.24h 1 Tab PO DAILY Fosamax (Alendronate Sodium) 70 Mg Tablet 1 Tab PO WEEKLY Eliquis (Apixaban) 5 Mg Tablet 5 Mg PO BID Aspir 81 (Aspirin) 81 Mg Tablet. 1 Tab PO DAILY Lantus (Insulin Glargine,Hum.rec.anlog) 100 Unit/1 Ml Vial 52 Unit SQ BID MAY INCREASE FOR BLOOD SUGARS GREATER THAN 200 FASTING Advair 250-50 Diskus (Fluticasone/Salmeterol) 1 Each Disk.w.dev 1 Inh IH BID Duoneb 0.5-3(2.5) Mg/3 Ml (Albuterol/Ipratropium) 3 Ml Ampul.neb 3 Ml IH QID Ventolin Hfa Inhaler (Albuterol Sulfate) 18 Gm Hfa.aer.ad 2 Puff INH Q4HRS PRN Venlafaxine Hcl Er (Venlafaxine Hcl) 150 Mg Cap.er.24h 150 Mg PO DAILY Novolog Flexpen (Insulin Aspart) 100 Unit/1 Ml Insuln.pen 30 Unit SQ TIDAC Vitamin D2 (Ergocalciferol (Vitamin D2)) 50,000 Unit Capsule 50,000 Unit PO TWICE WEEKLY Losartan Potassium 50 Mg Tablet 50 Mg PO DAILY Pantoprazole Sodium 40 Mg Tablet.dr 40 Mg PO DAILY Trazodone Hcl 100 Mg Tablet 200 Mg PO HS Vitals/I & O Vital Sign - Last 24 Hours 12/31/17 12/31/17 12/31/17 12/31/17 11:00 14:32 15:00 17:16 Temp 99.6 98.8 99.6 98.8 Pulse 89 89 94 Resp 20 20 B/P (MAP) 146/49 (81) 146/49 177/63 (101) Pulse Ox 97 100 98 O2 Delivery Nasal Cannula Nasal Cannula Nasal Cannula O2 Flow Rate 3.0 3.0 3.0 12/31/17 12/31/17 12/31/17 12/31/17 19:00 19:54 20:00 20:20 Temp 98.9 98.9 Pulse 91 63 Resp 18 B/P (MAP) 134/45 (74) 139/49 Pulse Ox 97 O2 Delivery Nasal Cannula Nasal Cannula Nasal Cannula O2 Flow Rate 3.0 3.0 3.0 12/31/17 12/31/17 12/31/17 12/31/17 20:21 22:23 23:00 23:23 Temp 98.9 98.9 Pulse 93 Resp 18 B/P (MAP) 134/52 (79) Pulse Ox 97 100 100 O2 Delivery Nasal Cannula Nasal Cannula Nasal Cannula Nasal Cannula O2 Flow Rate 3.0 3.0 3.0 3.0 01/01/18 01/01/18 01/01/18 01/01/18 03:00 08:16 08:57 08:59 Temp 98.6 98.6 Pulse 72 87 Resp 18 B/P (MAP) 114/45 (68) 115/52 Pulse Ox 99 98 O2 Delivery Nasal Cannula Nasal Cannula Nasal Cannula O2 Flow Rate 3.0 3.0 3.0 01/01/18 01/01/18 09:02 09:02 Pulse 87 87 B/P (MAP) 115/52 115/52 Intake and Output 12/31/17 12/31/17 01/01/18 15:00 23:00 07:00 Intake Total 0 ml 1730 ml Balance 0 ml 1730 ml PATRIZIA OAKES MD Jan 01, 2018 09:32
--- NOTE | 2018-01-01 10:02 | RAD ---
Examination: ANKLE LEFT 2V History: LT ANKLE PAIN AFTER RECENT FALL Comparison/Correlation: CT left lower extremity without contrast 03/24/2017 Findings: Frontal and lateral left ankle 3 view x-ray exam was performed. Soft tissue swelling is notable about the ankle. The lateral aspect. Deformity and appearance of partial resection of the distal fibula is noted. There is a alysia identified within the visualized tibial shaft extending to the distal calcaneus. Fusion of the tibial talar articulation noted. Osteopenia is notable. Calcaneal spur noted. Degenerative changes of the midfoot identified. Significant calcification of the arterial vasculature noted. No findings to suggest acute fracture. Impression: Postoperative findings. Osteopenia. Soft tissue swelling is notable at the lateral aspect of the talus and calcaneus. Electronically signed by: Aleksey Mckeon MD (01/01/2018 9:59 AM) [facility]
[2018-01-01 11:00] VITALS: BP 106/42
[2018-01-01] MEDS: BUDESONIDE 0.5 MG/2 ML NEBU. NEB SCH ×2 (12:15→19:07)
--- NOTE | 2018-01-01 13:23 | PDOC ---
Infectious Disease Note Vital Sign Vital Signs Vital Signs Date Time Temp Pulse Resp B/P (MAP) Pulse Ox O2 Delivery O2 Flow Rate FiO2 01/01/18 12:15 100 Nasal Cannula 3.0 01/01/18 11:00 98.4 74 16 106/42 (63) 98.4 Labs Lab Laboratory Tests Test 12/31/17 14:25 12/31/17 15:39 12/31/17 16:46 12/31/17 17:50 Glucose (Fingerstick) 405 mg/dL (70-99) 376 mg/dL (70-99) 245 mg/dL (70-99) 178 mg/dL (70-99) Test 12/31/17 18:56 12/31/17 20:47 12/31/17 20:55 01/01/18 03:00 Glucose (Fingerstick) 182 mg/dL (70-99) 197 mg/dL (70-99) 202 mg/dL (70-99) Random Vancomycin Level 18.3 mcg/mL Test 01/01/18 03:30 01/01/18 07:28 01/01/18 11:40 White Blood Count 10.1 x10^3/uL (4.0-11.0) Red Blood Count 2.86 x10^6/uL (3.50-5.40) Hemoglobin 8.9 g/dL (12.0-15.5) Hematocrit 25.9 % (36.0-47.0) Mean Corpuscular Volume 90 fL (79-100) Mean Corpuscular Hemoglobin 31 pg (25-35) Mean Corpuscular Hemoglobin Concent 34 g/dL (31-37) Red Cell Distribution Width 15.0 % (11.5-14.5) Platelet Count 113 x10^3/uL (140-400) Neutrophils (%) (Auto) 83 % (31-73) Lymphocytes (%) (Auto) 6 % (24-48) Monocytes (%) (Auto) 11 % (0-9) Eosinophils (%) (Auto) 0 % (0-3) Basophils (%) (Auto) 0 % (0-3) Neutrophils # (Auto) 8.4 x10^3uL (1.8-7.7) Lymphocytes # (Auto) 0.6 x10^3/uL (1.0-4.8) Monocytes # (Auto) 1.1 x10^3/uL (0.0-1.1) Eosinophils # (Auto) 0.0 x10^3/uL (0.0-0.7) Basophils # (Auto) 0.0 x10^3/uL (0.0-0.2) Sodium Level 134 mmol/L (136-145) Potassium Level 4.0 mmol/L (3.5-5.1) Chloride Level 99 mmol/L (98-107) Carbon Dioxide Level 27 mmol/L (21-32) Anion Gap 8 (6-14) Blood Urea Nitrogen 48 mg/dL (7-20) Creatinine 2.1 mg/dL (0.6-1.0) Estimated GFR (Cockcroft-Gault) 23.4 Glucose Level 228 mg/dL (70-99) Calcium Level 7.6 mg/dL (8.5-10.1) Glucose (Fingerstick) 236 mg/dL (70-99) 242 mg/dL (70-99) Micro Microbiology 12/31/17 Blood Culture - Final, Complete Objective Assessment Sepsis with gram positive bacteremia suggestive of strep (POA) Lactic acidosis Pyuria (POA) Fever Leukocytosis Positive MRSA nares MANDIE Loose stools MS pain s/p fall. A-fib, on amiodarone therapy DM II Hypothyroidism COPD, O2 dependent Plan Plan of Care D/c vanc D/c Levaquin Continue Zosyn for now Awaiting GPC ID/sensitivities Monitor labs/temp Probiotics D/w Dr. Callahan Thank you [phone] Patient seen and examined. Chart reviewed in detail. Case discussed with [employer]URAL SCI[employer] MANAGER> Agree with above plan. GUY ROLDAN APRN Jan 01, 2018 13:23 ANGELY CALLAHAN MD Jan 01, 2018 22:56
[2018-01-01 15:00] VITALS: BP 98/40
[2018-01-01] MEDS: ANTI-COAG MONITOR BY PHARMACY. MC PRN (15:11)
[2018-01-01 19:05] VITALS: BP 110/50
[2018-01-01] MEDS ORDERED: DICLOFENAC SODIUM 1% TOPICAL GEL 100GM TUBE. TP SCH (21:00)
[2018-01-01] MEDS: IRON POLYSACCHARIDE COMPLEX 150 MG CAPSULE PO SCH (21:07)
[2018-01-01] MEDS: traZODone 100 MG TABLET. PO SCH (21:07)
[2018-01-01] MEDS: ATORVASTATIN CALCIUM 40 MG TABLET. PO SCH (21:07)
[2018-01-01] MEDS: DEXTROSE 50% 25 GM / 50ML DISP.SYRIN. IV PRN (22:37)
[2018-01-01 23:55] VITALS: BP 101/40
[2018-01-02 03:10] VITALS: BP 120/44
--- NOTE | 2018-01-02 04:40 | CONS ---
DATE OF CONSULTATION: 01/01/2018 ATTENDING PHYSICIAN: Dr. Fox. The patient was seen at the request of Dr. Casas for rehab evaluation. HISTORY OF PRESENT ILLNESS: This is a 67-year-old female admitted with lightheadedness. She has been unsteady on her feet and felt weak and had difficulty even moving around the house. She asked help from her having some subjective chills, also admits to low grade fever, having difficulty with cough and she had productive white sputum. She is having some pain in her left shoulder, neck, and left ankle since she fell. She fell on 12/31/2017 and she had radiological studies including x-ray of the left ankle, which revealed postoperative findings and osteopenia and soft tissue swelling notable at the lateral aspect of the talus and calcaneus, fusion of the tibiotalar articulation alysia identified within the visualized tibia shaft extending to the distal calcaneal spur noted, degenerative changes of the mid foot identified, significant calcification of arterial vasculature noted, also deformity and evidence of partial resection of the distal fibula. She had CT scan of the brain and cervical spine, which failed to reveal any acute abnormalities. It showed multilevel degenerative disk disease and degenerative joint disease of cervical vertebrae. The patient with known atrial fibrillation, coronary artery disease, myocardial infarction, hyperlipidemia, chronic obstructive pulmonary disease, gastroesophageal reflux disease, carcinoma, chronic renal insufficiency, urinary incontinence, diabetes mellitus, status post appendectomy, cholecystectomy, hysterectomy. FAMILY HISTORY: Diabetes mellitus and heart disease. She is not known allergic to any medication. The patient is being treated for urinary tract infection. PHYSICAL EXAMINATION: Today revealed a middle-aged female. She is alert, oriented to time, place, person and circumstance and follows commands appropriately, moves all 4 extremities voluntarily where she had 4/5 grade muscle strength with relatively increased weakness in shoulder girdle muscles. She had tenderness to palpation at both shoulders over cervical paraspinal muscles extending over to upper trapezius muscle area, over sacroiliac joint area, over trochanteric bursa, over the left ankle and left tendo Achilles. She had absent knee and ankle jerks. She had evidence of skin redness from chronic venous insufficiency of both feet and distal parts of her legs. She had crepitus on range of motion of both knee joints without any obvious knee joint effusion. She had pain free range of motion of both hip joints. She has some stiffness of her neck and lower back. She is independent with bed mobility. I have not tested her transfers or ambulation skills at this time. She had decreased touch and pinprick sensation over a sock and glove distribution mainly in her feet. ASSESSMENT: The patient with recent fall and sprain neck and left ankle. The patient is status post multiple left foot and ankle surgeries with radiological evidence of degenerative joint disease and also clinical evidence of degenerative joint disease of both knees, peripheral neuropathy, chronic neck and lower back pain, status post previous cervical spine surgeries. No clinical evidence of cervical spinal stenosis. She presents with tendinitis in both shoulders. The patient with chronic renal insufficiency, atrial fibrillation, coronary artery disease, myocardial infarction, hyperlipidemia, chronic obstructive pulmonary disease, gastroesophageal reflux disease, carcinoma, urinary incontinence. RECOMMENDATION: To try physical modalities and agree with the plan for physical therapy. She already has a Cam boot at home, to use it if she is having significant pain in her left foot while weightbearing. Hopefully, home with home health followup when medically stable in the next few days. Dr. Casas, appreciate asking me to participate in the care of this interesting patient. I will be glad to follow her with you as needed for her rehabilitation. OLVIN LAI MD DR: LOPEZ/stuart JOB#: [id number] / [id number]
[2018-01-02] MEDS: PIPERACILLIN/TAZOBACTAM 2.25 GM in IV NORMAL SALINE 50ML 50 ML IV SCH ×3 (05:45→22:09)
[2018-01-02] MEDS: LEVOTHYROXINE 150 MCG TABLET PO SCH (05:45)
[2018-01-02] MEDS: DEXTROSE 50% 25 GM / 50ML DISP.SYRIN. IV PRN (05:55)
[2018-01-02 07:00] VITALS: BP 113/40
[2018-01-02] MEDS: IPRATRPIUM/ALBUTEROL 0.5/2.5MG 3 ML NEBU. IH SCH ×4 (08:00→19:43)
[2018-01-02] MEDS: INSULIN LISPRO 300 UNITS/3 ML INSULN.PEN. SQ SCH ×6 (08:00→16:16)
[2018-01-02] MEDS: BUDESONIDE 0.5 MG/2 ML NEBU. NEB SCH ×2 (08:00→19:43)
[2018-01-02] MEDS: INSULIN GLARGINE 300 UNITS/3 ML INSULN.PEN. SQ SCH ×2 (08:34→21:00)
--- NOTE | 2018-01-02 08:47 | CONS ---
DATE OF CONSULTATION: 01/01/2018 ADDENDUM Previous dictation abruptly ended. PAST MEDICAL HISTORY: Hypothyroidism, diabetes mellitus type 2, hyperlipidemia, hypertension, and history of myocardial infarction. PHYSICAL EXAMINATION: GENERAL: The patient is sitting on the side of the bed, alert, smiling. VITAL SIGNS: Temperature is 98.4, blood pressure 106/42, heart rate 74, respiratory rate 16, pulse oximetry is 100% on 3 L nasal cannula. BMI 37. HEENT: Normal conjunctivae. Oral cavity: Pharynx pink and moist. NECK: Supple. LUNGS: Clear to auscultation. HEART: S1 and S2. ABDOMEN: Obese. Bowel sounds active. Soft, nontender. EXTREMITIES: No gross edema or cyanosis. Chronic stasis changes noted. SKIN: Warm without rash. NEUROLOGIC: Alert and oriented times 3. Moves all extremities. LABORATORY DATA: Today's WBC 10.1, hemoglobin 8.9, platelets 113,000. Sodium 134, potassium 4.0, creatinine 2.1, BUN 48, glucose 228, repeat lactic acid 1.9, total bilirubin 0.5, AST 87, ALT 75. Creatinine kinase 258. Troponin 0.055. BNP 8501, albumin 2.5, lipase 43. MRSA screen positive. Random vancomycin trough 18.3. Urinalysis per HPI. Urine culture in process. Blood cultures show Gram-positive cocci in pairs and chains suggestive of strep and strep in 2 of 2 bottles from 12/31/2017. IMAGING DATA: Head/cervical spine CT: No acute fractures. Chest x-ray showed clear lungs. No pneumothorax or pleural effusion. X-ray of left ankle shows osteopenia and soft tissue swelling notable at the lateral aspect of the talus and calcaneus. IMPRESSION: 1. Sepsis with Gram-positive bacteremia suggestive of strep, present on admission. 2. Lactic acidosis. 3. Pyuria. 4. Fever. 5. Leukocytosis. 6. Positive Methicillin-resistant Staphylococcus aureus in nares. 7. Acute kidney injury. 8. Loose stools. 9. Musculoskeletal pain status post fall. 10. Atrial fibrillation, on amiodarone therapy. 11. Diabetes mellitus type 2. 12. Hypothyroidism. 13. Chronic obstructive pulmonary disease, oxygen dependent. PLAN: Discontinue the vancomycin and levofloxacin. Continue the Zosyn for now. Awaiting GPC identification and sensitivities. Continue to monitor laboratory values and temperature. Continue the probiotics. Thank you, Dr. Menard, for asking us to participate in this patient's care. Should you have further questions or concerns, please call. ANGELY RAMIREZ MD DR: GABI/stuart JOB#: [id number] / [id number]
[2018-01-02] MEDS: IV NORMAL SALINE 1000ML BAG 1,000 ML IV SCH ×3 (08:51→20:59)
[2018-01-02] MEDS: IRON POLYSACCHARIDE COMPLEX 150 MG CAPSULE PO SCH ×2 (08:55→20:56)
[2018-01-02] MEDS: HYDROcodone/APAP 5/325MG 1 TAB TABLET PO PRN ×2 (08:55→12:59)
[2018-01-02] MEDS: ASPIRIN ENTERIC COATED 81 MG TABLET.DR. PO SCH (08:55)
[2018-01-02] MEDS: DICLOFENAC SODIUM 1% TOPICAL GEL 100GM TUBE. TP SCH ×4 (08:55→20:59)
[2018-01-02] MEDS: POTASSIUM CHLORIDE 10 MEQ TABLET.ER. PO SCH (08:55)
[2018-01-02] MEDS: COLESTIPOL HCL 1 GM TABLET PO SCH (08:56)
[2018-01-02] MEDS: FUROSEMIDE 40 MG TABLET. PO SCH (08:56)
[2018-01-02] MEDS: OXYBUTYNIN CHLORIDE 5 MG TABLET PO SCH ×3 (08:56→20:57)
[2018-01-02] MEDS: VENLAFAXINE 50 MG TABLET. PO SCH ×3 (08:56→20:56)
[2018-01-02] MEDS: APIXABAN 5 MG TABLET. PO SCH ×2 (08:56→20:56)
[2018-01-02] MEDS: METOPROLOL SUCC 24HR ER 25 MG TAB.ER.24H. PO SCH (08:57)
[2018-01-02] MEDS: LACTOBACILLUS RHAMNOSUS GG 1 CAPSULE. PO SCH ×2 (08:57→20:55)
[2018-01-02] MEDS: GABAPENTIN 100 MG CAPSULE. PO SCH ×2 (08:57→20:56)
[2018-01-02] MEDS: LOSARTAN POTASSIUM 50 MG TABLET. PO SCH (08:58)
[2018-01-02] MEDS: ISOSORBIDE MONONITRATE ER 30 MG TAB.ER.24H PO SCH (08:58)
[2018-01-02] MEDS: PANTOPRAZOLE 40 MG TABLET.DR. PO SCH (08:58)
[2018-01-02] MEDS: AMIODARONE HCL 200 MG TABLET. PO SCH (08:59)
--- NOTE | 2018-01-02 09:37 | PDOC ---
PROGRESS NOTES Chief Complaint Chief Complaint UTI, with strep bacteremia - sensitivities pending Sepsis no organ dysfcn BAck pain sp physiatry injections LEft ankle sprain from recent fal - no fx Generalized weakness-HH on dc BMI 48, overweight History of Present Illness History of Present Illness She feels better overall \Strep bacteremia-sensitivity still pending ID on board Left ankle is just a sprain, x-rays negative for fracture She did fall or trip at home maybe Wednesday Plan: Ice to the left ankle Continue IV antibiotics Can discharge it because we are waiting for sensitivities of the strep bacteremia Plan for home health on discharge Vitals Vitals Vital Signs Date Time Temp Pulse Resp B/P (MAP) Pulse Ox O2 Delivery O2 Flow Rate FiO2 01/02/18 08:59 72 113/40 01/02/18 08:55 Nasal Cannula 3.0 01/02/18 07:00 97.8 18 100 97.8 Physical Exam General: Alert, Oriented X3, Cooperative Heart: Regular rate, Normal S1, Normal S2 Lungs: Clear, Other Abdomen: Normal bowel sounds, Soft Extremities: Other (left ankle scar/tenderness, pain on palpation) Skin: No rashes, No breakdown, No significant lesion Labs LABS Laboratory Tests Test 01/01/18 11:40 01/01/18 16:48 01/01/18 22:33 01/01/18 23:05 Glucose (Fingerstick) 242 mg/dL (70-99) 141 mg/dL (70-99) 45 mg/dL (70-99) 125 mg/dL (70-99) Test 01/02/18 05:50 01/02/18 06:18 01/02/18 08:31 Glucose (Fingerstick) 69 mg/dL (70-99) 142 mg/dL (70-99) 138 mg/dL (70-99) Review of Systems Review of Systems Left ankle pain otherwise the rest of ROS negative Assessment and Plan Assessmemt and Plan Problems Medical Problems: (1) UTI (urinary tract infection) Status: Acute (2) Weakness Status: Acute Comment Review of Relevant I have reviewed the following items brooke (where applicable) has been applied. Labs Laboratory Tests Test 12/31/17 12:08 12/31/17 14:25 12/31/17 15:39 12/31/17 16:46 Glucose (Fingerstick) 402 mg/dL (70-99) 405 mg/dL (70-99) 376 mg/dL (70-99) 245 mg/dL (70-99) Test 12/31/17 17:50 12/31/17 18:56 12/31/17 20:47 12/31/17 20:55 Glucose (Fingerstick) 178 mg/dL (70-99) 182 mg/dL (70-99) 197 mg/dL (70-99) 202 mg/dL (70-99) Test 01/01/18 03:00 01/01/18 03:30 01/01/18 07:28 01/01/18 11:40 Random Vancomycin Level 18.3 mcg/mL White Blood Count 10.1 x10^3/uL (4.0-11.0) Red Blood Count 2.86 x10^6/uL (3.50-5.40) Hemoglobin 8.9 g/dL (12.0-15.5) Hematocrit 25.9 % (36.0-47.0) Mean Corpuscular Volume 90 fL (79-100) Mean Corpuscular Hemoglobin 31 pg (25-35) Mean Corpuscular Hemoglobin Concent 34 g/dL (31-37) Red Cell Distribution Width 15.0 % (11.5-14.5) Platelet Count 113 x10^3/uL (140-400) Neutrophils (%) (Auto) 83 % (31-73) Lymphocytes (%) (Auto) 6 % (24-48) Monocytes (%) (Auto) 11 % (0-9) Eosinophils (%) (Auto) 0 % (0-3) Basophils (%) (Auto) 0 % (0-3) Neutrophils # (Auto) 8.4 x10^3uL (1.8-7.7) Lymphocytes # (Auto) 0.6 x10^3/uL (1.0-4.8) Monocytes # (Auto) 1.1 x10^3/uL (0.0-1.1) Eosinophils # (Auto) 0.0 x10^3/uL (0.0-0.7) Basophils # (Auto) 0.0 x10^3/uL (0.0-0.2) Sodium Level 134 mmol/L (136-145) Potassium Level 4.0 mmol/L (3.5-5.1) Chloride Level 99 mmol/L (98-107) Carbon Dioxide Level 27 mmol/L (21-32) Anion Gap 8 (6-14) Blood Urea Nitrogen 48 mg/dL (7-20) Creatinine 2.1 mg/dL (0.6-1.0) Estimated GFR (Cockcroft-Gault) 23.4 Glucose Level 228 mg/dL (70-99) Calcium Level 7.6 mg/dL (8.5-10.1) Glucose (Fingerstick) 236 mg/dL (70-99) 242 mg/dL (70-99) Test 01/01/18 16:48 01/01/18 22:33 01/01/18 23:05 01/02/18 05:50 Glucose (Fingerstick) 141 mg/dL (70-99) 45 mg/dL (70-99) 125 mg/dL (70-99) 69 mg/dL (70-99) Test 01/02/18 06:18 01/02/18 08:31 Glucose (Fingerstick) 142 mg/dL (70-99) 138 mg/dL (70-99) Laboratory Tests Test 01/01/18 11:40 01/01/18 16:48 01/01/18 22:33 01/01/18 23:05 Glucose (Fingerstick) 242 mg/dL (70-99) 141 mg/dL (70-99) 45 mg/dL (70-99) 125 mg/dL (70-99) Test 01/02/18 05:50 01/02/18 06:18 01/02/18 08:31 Glucose (Fingerstick) 69 mg/dL (70-99) 142 mg/dL (70-99) 138 mg/dL (70-99) Microbiology 12/31/17 Blood Culture - Final, Complete 12/30/17 Urine Culture - Final, Complete 12/30/17 Urine Culture Result 1 (DEEPTI) - Final, Complete Medications Current Medications Acetaminophen/ Hydrocodone Bitart (Lortab 5/325) 1 tab 1X ONCE PO ; Start at 22:00; Stop 12/30/17 at 22:01; Status Cancel Ceftriaxone Sodium 50 ml @ 100 mls/hr 1X ONCE IV Last administered on at 01:25; Start 12/30/17 at 23:30; Stop 12/30/17 at 23:59; Status DC Ondansetron HCl (Zofran) 4 mg PRN Q8HRS PRN IV NAUSEA/VOMITING 1ST CHOICE; Start 12/30/17 at 23:30; Stop 12/31/17 at 23:29; Status DC Morphine Sulfate (Morphine Sulfate) 2 mg PRN Q2HR PRN IV SEVERE PAIN; Start at 23:30; Stop 12/31/17 at 23:29; Status DC Acetaminophen (Tylenol) 1,000 mg 1X ONCE PO Last administered on 12/31/17at 01 :26; Start 12/31/17 at 01:30; Stop 12/31/17 at 01:31; Status DC Piperacillin Sod/ Tazobactam Sod 3.375 gm/Sodium Chloride 50 ml @ 100 mls/hr Q6HRS IV ; Start 12/31/17 at 06:00; Status UNV Levofloxacin/ Dextrose 100 ml @ 100 mls/hr 1X ONCE IV Last administered on at 03:15; Start 12/31/17 at 03:00; Stop 12/31/17 at 03:59; Status DC Piperacillin Sod/ Tazobactam Sod 2.25 gm/Sodium Chloride 50 ml @ 100 mls/hr Q8HRS IV Last administered on 01/02/18at 05:45; Start 12/31/17 at 06:00 Levofloxacin/ Dextrose 50 ml @ 50 mls/hr Q24H IV Last administered on at 04:59; Start 01/01/18 at 06:00; Stop 01/01/18 at 13:22; Status DC Sodium Chloride 1,000 ml @ 1,000 mls/hr 1X ONCE IV Last administered on 12/31at 13:00; Start 12/31/17 at 13:00; Stop 12/31/17 at 13:59; Status DC Sodium Chloride 1,000 ml @ 100 mls/hr Q10H IV Last administered on 01/02/18at 08:51; Start 12/31/17 at 12:15 Vancomycin HCl 1 gm/Sodium Chloride 250 ml @ 250 mls/hr Q24H IV ; Start at 12:15; Status UNV Insulin Human Regular 150 unit/ Sodium Chloride 151.5 ml @ 0 mls/hr CONT PRN IV SEE I/O RECORD Last administered on 12/31/17at 14:37; Start 12/31/17 at 12: 15; Stop 12/31/17 at 18:59; Status DC Amiodarone HCl (Cordarone) 100 mg DAILY PO Last administered on 01/02/18at 08: 59; Start 12/31/17 at 13:00 Apixaban (Eliquis) 5 mg BID PO Last administered on 01/02/18 08:56; Start at 13:00 Aspirin (Ecotrin) 81 mg DAILY PO Last administered on 01/02/18 08:55; Start 12/31/17 at 13:00 Albuterol/ Ipratropium (Duoneb) 3 ml RTQID IH Last administered on 01/01/18at 19:07; Start 12/31/17 at 13:00 Pantoprazole Sodium (Protonix) 40 mg DAILYAC PO Last administered on 08:58; Start 12/31/17 at 13:00 Info (Anti-Coagulation Monitoring By Pharmacy) 1 each PRN DAILY PRN MC SEE COMMENTS Last administered on 01/01/18at 15:11; Start 12/31/17 at 12:30 Vancomycin HCl 1.75 gm/Sodium Chloride 500 ml @ 250 mls/hr 1X ONCE IV ; Start 12/31/17 at 13:00; Stop 12/31/17 at 14:59; Status Cancel Vancomycin HCl (Vanco Per Pharmacy) 1 each PRN DAILY PRN MC SEE COMMENTS Last administered on 12/31/17at 16:03; Start 12/31/17 at 12:30; Stop 01/01/18 at 13 :22; Status DC Vancomycin HCl 2 gm/Sodium Chloride 500 ml @ 250 mls/hr 1X ONCE IV Last administered on 12/31/17at 13:08; Start 12/31/17 at 13:00; Stop 12/31/17 at 14 :59; Status DC Levothyroxine Sodium (Synthroid) 150 mcg DAILY06 PO Last administered on at 05:45; Start 12/31/17 at 16:30 Vancomycin HCl (Vancomycin Random Level) 1 each 1X ONCE MC Last administered on 01/01/18at 14:38; Start 01/01/18 at 03:00; Stop 01/01/18 at 12:04; Status DC Lactobacillus Rhamnosus (Culturelle) 1 cap BID PO Last administered on 08:57; Start 12/31/17 at 21:00 Colestipol HCl (Colestid) 1 gm DAILY PO Last administered on 01/02/18 08:56; Start 01/01/18 at 09:00 Diclofenac Sodium (Voltaren) 1 myrtle QID TP Last administered on 01/02/18 08:55 ; Start 12/31/17 at 21:00 Ferrous Sulfate (Feosol) 325 mg DAILY PO Last administered on 01/01/18 08:59 ; Start 01/01/18 at 09:00; Stop 01/01/18 at 13:26; Status DC Furosemide (Lasix) 40 mg DAILY PO Last administered on 01/02/18 08:56; Start 01/01/18 at 09:00 Gabapentin (Neurontin) 100 mg BID PO Last administered on 01/02/18 08:57; Start 12/31/17 at 21:00 Acetaminophen/ Hydrocodone Bitart (Lortab 5/325) 1 tab PRN Q6HRS PRN PO PAIN Last administered on 12/31/17at 22:23; Start 12/31/17 at 19:00; Stop 01/01/18 at 08:14; Status DC Isosorbide Mononitrate (Imdur) 30 mg DAILY PO Last administered on 01/02/18 08:58; Start 01/01/18 at 09:00 Losartan Potassium (Cozaar) 50 mg DAILY PO Last administered on 01/02/18 08: 58; Start 12/31/17 at 20:00 Metoprolol Succinate (Toprol Xl) 25 mg DAILY PO Last administered on 08:57; Start 12/31/17 at 20:00 Oxybutynin Chloride (Ditropan) 5 mg TID PO Last administered on 01/02/18 08: 56; Start 12/31/17 at 21:00 Potassium Chloride (Klor-Con) 10 meq DAILY PO Last administered on 01/02/18 08:55; Start 01/01/18 at 09:00 Trazodone HCl (Desyrel) 200 mg HS PO Last administered on 10/27/18at 21:07; Start 12/31/17 at 21:00 Non-Formulary Medication (Albuterol Sulfate (Ventolin Hfa Inhaler)) 2 puff Q4HRS PRN INH SHORTNESS OF BREATH; Start 12/31/17 at 19:00; Status UNV Non-Formulary Medication (Alendronate Sodium (Fosamax)) 1 tab WEEKLY PO ; Start 01/07/18 at 09:00; Status UNV Atorvastatin Calcium (Lipitor) 80 mg QHS PO Last administered on 01/01/18at 21: 07; Start 12/31/17 at 21:00 Non-Formulary Medication (Fluticasone/ Salmeterol (Advair 250-50 Diskus)) 1 inh BID IH ; Start 12/31/17 at 21:00; Status UNV Insulin Human Lispro (HumaLOG) 30 units TIDWMEALS SQ Last administered on 01/01at 18:29; Start 01/01/18 at 08:00 Insulin Glargine (Lantus) 52 units BID SQ Last administered on 01/01/18at 09:21 ; Start 12/31/17 at 21:00 Venlafaxine HCl (Effexor) 50 mg TID PO Last administered on 01/02/18at 08:56; Start 01/01/18 at 09:00 Insulin Human Lispro (HumaLOG) 0-9 UNITS TIDWMEALS SQ Last administered on at 12:34; Start 12/31/17 at 20:00 Dextrose (Dextrose 50%-Water Syringe) 12.5 gm PRN Q15MIN PRN IV SEE COMMENTS Last administered on 01/02/18at 05:55; Start 12/31/17 at 19:00 Budesonide (Pulmicort) 0.5 mg RTBID NEB Last administered on 01/01/18at 19:07; Start 12/31/17 at 20:00 Albuterol Sulfate (Ventolin Neb Soln) 2.5 mg RTQID NEB ; Start 12/31/17 at 20: 00; Status UNV Albuterol Sulfate (Ventolin Neb Soln) 2.5 mg PRN Q4HRS PRN NEB SHORTNESS OF BREATH; Start 12/31/17 at 19:30 Morphine Sulfate (Morphine Sulfate) 2 mg PRN Q2HR PRN IV PAIN MILD; Start at 08:15 Acetaminophen/ Hydrocodone Bitart (Lortab 5/325) 1 tab PRN Q4HRS PRN PO PAIN Last administered on 01/02/18at 08:55; Start 01/01/18 at 08:15 Ondansetron HCl (Zofran) 4 mg PRN Q6HRS PRN IV NAUSEA/VOMITING 1ST CHOICE; Start 01/01/18 at 08:15 Ondansetron HCl (Zofran Odt) 4 mg PRN Q6HRS PRN PO NAUSEA/VOMITING 1ST CHOICE; Start 01/01/18 at 08:15 Diclofenac Sodium (Voltaren) 1 myrtle BID TP ; Start 01/01/18 at 21:00; Status UNV Polysaccharide Iron Complex (Niferex 150) 150 mg BID PO Last administered on at 08:55; Start 01/01/18 at 21:00 Active Scripts Active Furosemide 40 Mg Tablet 40 Mg PO DAILY 30 Days Amiodarone Hcl 200 Mg Tablet 100 Mg PO DAILY 30 Days Reported Metoprolol Succinate ( Xl ) (Metoprolol Succinate) 25 Mg Tab.er.24h 1 Tab PO DAILY Hydrocodone-Apap 5-325 (Hydrocodone Bit/Acetaminophen) 1 Each Tablet 1 Tab PO PRN Q6HRS PRN Voltaren (Diclofenac Sodium) 100 Gm Gel..gram. 1 Gm TP QID Potassium Chloride 10 Meq Tablet.er 10 Meq PO DAILY Ferrous Sulfate 325 Mg Tablet 325 Mg PO DAILY Gabapentin 100 Mg Capsule 100 Mg PO BID Colestipol Hcl 1 Gm Tablet 1 Gm PO DAILY Oxybutynin Chloride 5 Mg Tablet 5 Mg PO TID Lipitor (Atorvastatin Calcium) 80 Mg Tablet 80 Mg PO HS Levothyroxine Sodium 150 Mcg Tablet 1 Tab PO DAILY Isosorbide Mononitrate Er (Isosorbide Mononitrate) 30 Mg Tab.er.24h 1 Tab PO DAILY Fosamax (Alendronate Sodium) 70 Mg Tablet 1 Tab PO WEEKLY Eliquis (Apixaban) 5 Mg Tablet 5 Mg PO BID Aspir 81 (Aspirin) 81 Mg Tablet.dr 1 Tab PO DAILY Lantus (Insulin Glargine,Hum.rec.anlog) 100 Unit/1 Ml Vial 52 Unit SQ BID MAY INCREASE FOR BLOOD SUGARS GREATER THAN 200 FASTING Advair 250-50 Diskus (Fluticasone/Salmeterol) 1 Each Disk.w.dev 1 Inh IH BID Duoneb 0.5-3(2.5) Mg/3 Ml (Albuterol/Ipratropium) 3 Ml Ampul.neb 3 Ml IH QID Ventolin Hfa Inhaler (Albuterol Sulfate) 18 Gm Hfa.aer.ad 2 Puff INH Q4HRS PRN Venlafaxine Hcl Er (Venlafaxine Hcl) 150 Mg Cap.er.24h 150 Mg PO DAILY Novolog Flexpen (Insulin Aspart) 100 Unit/1 Ml Insuln.pen 30 Unit SQ TIDAC Vitamin D2 (Ergocalciferol (Vitamin D2)) 50,000 Unit Capsule 50,000 Unit PO TWICE WEEKLY Losartan Potassium 50 Mg Tablet 50 Mg PO DAILY Pantoprazole Sodium 40 Mg Tablet.dr 40 Mg PO DAILY Trazodone Hcl 100 Mg Tablet 200 Mg PO HS Vitals/I & O Vital Sign - Last 24 Hours 01/01/18 01/01/18 01/01/18 01/01/18 09:57 11:00 12:15 15:00 Temp 98.4 98.0 98.4 98.0 Pulse 74 72 Resp 16 12 B/P (MAP) 106/42 (63) 98/40 (59) Pulse Ox 98 100 100 O2 Delivery Nasal Cannula Nasal Cannula Nasal Cannula Nasal Cannula O2 Flow Rate 3.0 3.0 3.0 3.0 01/01/18 01/01/18 01/01/18 01/01/18 19:05 19:09 21:05 23:55 Temp 98.6 98.4 98.6 98.4 Pulse 74 70 Resp 18 16 B/P (MAP) 110/50 (70) 101/40 (60) Pulse Ox 100 100 98 O2 Delivery Nasal Cannula Nasal Cannula Nasal Cannula Nasal Cannula O2 Flow Rate 3.0 3.0 3.0 3.0 01/02/18 01/02/18 01/02/18 01/02/18 03:10 07:00 07:26 08:55 Temp 98.4 97.8 98.4 97.8 Pulse 67 72 Resp 18 18 B/P (MAP) 120/44 (69) 113/40 (64) Pulse Ox 98 100 O2 Delivery Nasal Cannula Nasal Cannula Nasal Cannula Nasal Cannula O2 Flow Rate 3.0 3.0 3.0 3.0 01/02/18 01/02/18 01/02/18 01/02/18 08:57 08:58 08:58 08:59 Pulse 72 72 72 72 B/P (MAP) 113/40 113/40 113/40 113/40 Intake and Output 01/01/18 01/01/18 01/02/18 15:00 23:00 07:00 Intake Total 1290 ml 730 ml 6961 ml Output Total 0 ml 0 ml Balance 1290 ml 730 ml 6961 ml PATRIZIA OAKES MD Jan 02, 2018 09:37
--- NOTE | 2018-01-02 10:49 | PDOC ---
Infectious Disease Note Subjective Subjective Feeling better but having some shoulder (L>R) and neck pain. h/o neck fusions years ago Mild nausea Denies vomiting/cramps/diarrhea No F/C/S ROS ROS per HPI otherwise neg Vital Sign Vital Signs Vital Signs Date Time Temp Pulse Resp B/P (MAP) Pulse Ox O2 Delivery O2 Flow Rate FiO2 01/02/18 10:00 Nasal Cannula 3.0 01/02/18 08:59 72 113/40 01/02/18 07:00 97.8 18 100 97.8 Physical Exam PHYSICAL EXAM GENERAL: Resting quietly HEENT: Oral cavity, pharynx pink and dry. Edentulous NECK: Ice pack posteriorly LUNGS: Clear to auscultation. HEART: S1 and S2. ABDOMEN: Obese, soft, NT EXTREMITIES: No gross edema or cyanosis. Chronic stasis changes noted. Ice pack left ankle in place SKIN: Warm without rash. NEUROLOGIC: Alert and oriented times 3. Moves all extremities. Labs Lab Laboratory Tests Test 01/01/18 11:40 01/01/18 16:48 01/01/18 22:33 01/01/18 23:05 Glucose (Fingerstick) 242 mg/dL (70-99) 141 mg/dL (70-99) 45 mg/dL (70-99) 125 mg/dL (70-99) Test 01/02/18 05:50 01/02/18 06:18 01/02/18 08:31 Glucose (Fingerstick) 69 mg/dL (70-99) 142 mg/dL (70-99) 138 mg/dL (70-99) Micro URINE CULTURE RES 1 Final Comment Culture shows less than 10,000 colony forming units of bacteria per milliliter of urine. This colony count is not generally considered to be clinically significant. BLOOD CULTURE Final GRAM POSITIVE COCCI IN PAIRS AND CHAINS, SUGGESTIVE OF STREP. Objective Assessment Sepsis with gram positive bacteremia suggestive of strep (POA) Lactic acidosis Pyuria (POA) - UC neg Fever - better Leukocytosis - better Positive MRSA nares MANDIE Loose stools MS pain s/p fall. neck/shoulder an left ankle pains A-fib, on amiodarone therapy DM II Hypothyroidism COPD, O2 dependent Plan Plan of Care Continue Zosyn for now Awaiting GPC ID/sensitivities Last dose vanc and Levaquin (01/01) Monitor labs/temp Probiotics Patient seen and examined. Chart reviewed in detail. Case discussed with PROFESSOR OF OCEANOGRAPHY. Agree with above Plan. GUY ROLDAN APRN Jan 02, 2018 10:49 ANGELY RAMIREZ MD Jan 02, 2018 19:21
[2018-01-02 11:00] VITALS: BP 111/50
[2018-01-02 12:24] LABS: CALCIUM 7.5 mg/dL (8.5-10.1); CREATININE 1.8 mg/dL (0.6-1.0); GFR 27.9; POTASSIUM 4.2 mmol/L (3.5-5.1)
--- NOTE | 2018-01-02 13:46 | CONS ---
DATE OF CONSULTATION: 01/01/2018 REQUESTING PHYSICIAN: Dr. Casas. REASON FOR CONSULTATION: Left foot and ankle pain. HISTORY OF PRESENT ILLNESS: The patient is a 67-year-old female admitted to the hospital for sepsis where apparently she was lightheaded and already has difficulties with unsteadiness on her feet. She had weakness and difficulty ambulating around the house, indicated some chills and fever on admission and a productive cough noted. She was admitted with sepsis and pneumonia. I am asked to see the patient in the hospital as she apparently has an appointment scheduled with me in clinic to evaluate her ankle pain. She indicates that she wants to try and get care despite having surgery at and following there for this ongoing problem. PAST MEDICAL HISTORY: Significant for atrial fibrillation, history of MA, coronary artery disease, hyperlipidemia, COPD, reflux disease, cancer, chronic renal insufficiency, now in renal failure, urinary incontinence, and diabetes. PAST SURGICAL HISTORY: Appendectomy, cholecystectomy, hysterectomy and ankle surgeries performed at [facility] by Dr. Oh previously she thinks about 2 years ago FAMILY HISTORY: Diabetes and heart disease. SOCIAL HISTORY: Lives at home with her . Denies tobacco, alcohol or drug use. REVIEW OF SYSTEMS: Apparently fever and chills resolved. She has left ankle pain on any weightbearing, which has been hurting her for an extended period of time. Again, unclear why she did not go back to her surgeon with these issues. She still has some productive cough. Denies any radiating pain, weakness in the extremities. Lightheadedness has resolved in bed. PHYSICAL EXAMINATION: GENERAL: Pleasant, cooperative 67-year-old female. Height 64 inches, weight 220 pounds. EXTREMITIES: On examination of lower extremities, particularly the left ankle, she has well-healed incisions from previous apparent ankle fusion. She does have a callus on her mid portion of her heel and the area around that is tender on palpation. There is no redness, fluctuance, but she does have some prominent hardware palpable. There does not appear to be point tenderness on palpation over the ankle, although she says that she does have some tenderness over where her healed scars are particularly on the medial aspect of her ankle. There is no motion at the ankle at all. She has pes planus, which is a bilateral finding, normal alignment of the forefoot. She has normal examination of the contralateral foot and ankle. Normal motion stability of bilateral hips and knees. IMAGING: X-rays show an ankle fusion that appears intact. That is confirmed by radiology report. I also note a wire that is extending from distal to the heel up into the tibial shaft traversing the fused area. It appears as if it may be a wire containing an antibiotic cement fabricated alysia. Again, with the distal hardware it seems a bit prominent. On physical examination, there is no evidence, however, of any fracture at the fusion site. IMPRESSION: This is a 67-year-old female with multiple medical problems including pneumonia with sepsis and bacteremia, acute renal failure, chronic obstructive pulmonary disease, atrial fibrillation, hypercoagulable state, currently on multiple antibiotics and with diabetes. Apparent multiple surgeries, left ankle with some painful hardware done at [facility] by Dr. Oh. TREATMENT PLAN: I had a discussion with her about potential treatment options. It appears as if she has had some extensive different procedures, usually the situation with an ankle fusion is not necessarily done with an antibiotic impregnated alysia. I suspect may have had a right upper leg that became infected, hardware potentially removed and the antibiotic alysia placed to clear infection. Inexplicably she has not been back to her surgeon with these complaints of heel pain that has been going on for several months. She said that she has moved closer to the area and wants to receive care at [facility] rather than , which is farther away for her. I told her that this appears to be somewhat of a complicated situation. I do not see any evidence of acute injury or fracture at this point. I said there may be a role for removal of her hardware as it appears somewhat prominent; however, I am really not that familiar with her history, which is unavailable, which I surmise may have involved infection of her hardware, subsequent removal and placement of an antibiotic coated alysia for support. The area does appear healed. She is also at somewhat high risk for ongoing issues as evidenced by her recent admission with sepsis, diabetes, renal failure issues, specifically I am somewhat concerned with potential removal of the alysia and her risk for infection or refracture, which could be a big problem, particularly given her previous history and medical issues. I told her ideally that given a complicated issue here with multiple surgeries previously done at that she would follow up with her other surgeon regarding those. In any case, I do not feel that this is the time when she is undergoing a sepsis type episode to consider any further surgery, hardware removal, etc., and that at a minimum that would have to be resolved first, but again probably preferable for her to receive her ongoing care at based on the above. EUNICE LOFTON MD DR: MAVERICK/stuart JOB#: [id number] / [id number]
[2018-01-02 15:00] VITALS: BP 115/47
[2018-01-02] MEDS: ANTI-COAG MONITOR BY PHARMACY. MC PRN (15:25)
[2018-01-02] MEDS ORDERED: CYCLOBENZAPRINE 10 MG TABLET. PO PRN (18:45)
[2018-01-02 19:00] VITALS: BP 121/45
[2018-01-02] MEDS: traZODone 100 MG TABLET. PO SCH (20:56)
[2018-01-02] MEDS: CYCLOBENZAPRINE 10 MG TABLET. PO SCH (20:57)
[2018-01-02] MEDS: ATORVASTATIN CALCIUM 40 MG TABLET. PO SCH (20:57)
[2018-01-02 23:00] VITALS: BP 125/45
[2018-01-03 03:00] VITALS: BP 113/45
[2018-01-03 04:18] LABS: CALCIUM 7.7 mg/dL (8.5-10.1); CREATININE 1.6 mg/dL (0.6-1.0); POTASSIUM 4.4 mmol/L (3.5-5.1)
[2018-01-03] MEDS: PIPERACILLIN/TAZOBACTAM 2.25 GM in IV NORMAL SALINE 50ML 50 ML IV SCH (05:53)
[2018-01-03] MEDS: LEVOTHYROXINE 150 MCG TABLET PO SCH (05:53)
[2018-01-03] MEDS: IPRATRPIUM/ALBUTEROL 0.5/2.5MG 3 ML NEBU. IH SCH ×4 (06:54→19:15)
[2018-01-03] MEDS: BUDESONIDE 0.5 MG/2 ML NEBU. NEB SCH ×2 (06:54→19:15)
[2018-01-03 07:00] VITALS: BP 134/51
[2018-01-03] MEDS: INSULIN LISPRO 300 UNITS/3 ML INSULN.PEN. SQ SCH ×5 (08:00→17:42)
[2018-01-03] MEDS: METOPROLOL SUCC 24HR ER 25 MG TAB.ER.24H. PO SCH ×2 (09:00→09:58)
[2018-01-03] MEDS: POTASSIUM CHLORIDE 10 MEQ TABLET.ER. PO SCH (09:00)
[2018-01-03] MEDS: INSULIN GLARGINE 300 UNITS/3 ML INSULN.PEN. SQ SCH (09:00)
--- NOTE | 2018-01-03 09:34 | CONS ---
DATE OF CONSULTATION: 01/01/2018 REFERRING PHYSICIAN: Neto Menard MD REASON FOR CONSULTATION: Sepsis. HISTORY OF PRESENT ILLNESS: This patient is a 67-year-old female who was in her usual state of health when she developed a sudden onset of generalized weakness, shakes, and chills. She felt lightheaded and unsteady on her feet, causing her to fall. On arrival to the ER, she had temperature of 103.1 with elevated white blood cell count of 12,000, segs 84%, bands 9% along with a lactic acid of 2.4 and a creatinine of 3.1. Urinalysis showed WBCs too numerous to count, large leukocyte esterase, many bacteria with moderate squamous epithelial cells. She was dosed with vancomycin, Zosyn, and levofloxacin empirically. Blood cultures now show gram-positive cocci in pairs and chains suggestive of strep in 2 of 2 bottles. Since admission, the patient says that she is feeling better. Her fevers, chills, and shakes have settled down. Her appetite is improving. She denies urinary symptoms such as dysuria, frequency or urgency. She has COPD and is oxygen dependent. She has occasional cough, no more than usual. Denies shortness of air, chest discomfort or congestion. She is having some musculoskeletal type pains involving her shoulder and left ankle areas. She denies nausea, vomiting, cramps or diarrhea. PAST MEDICAL HISTORY: History of MRSA in nares. History of Enterobacter aerogenes in urine. COPD, oxygen dependent; atrial fibrillation, history of breast cancer, status post chemoradiation. Pancytopenia. Diabetes type 2. Gastroesophageal reflux disease. Cataracts. PAST SURGICAL HISTORY: Cardiac stent, appendectomy, cholecystectomy, hysterectomy, right partial mastectomy with lumpectomy, left ankle fusion with hardware in place. FAMILY HISTORY: Positive for hypertension, diabetes, cardiovascular disease, dementia, and colon cancer. SOCIAL HISTORY: The patient lives at home. She is a 40-year plus smoker. ALLERGIES: No known drug allergies. MEDICATIONS: Vancomycin, Zosyn, and levofloxacin. Other medications are available and have been reviewed on the MAY. PAST MEDICAL HISTORY: Hypothyroidism, diabetes mellitus type 2, hyperlipidemia, hypertension, and history of myocardial infarction. PHYSICAL EXAMINATION: GENERAL: The patient is sitting on the side of the bed, alert, smiling. VITAL SIGNS: Temperature is 98.4, blood pressure 106/42, heart rate 74, respiratory rate 16, pulse oximetry is 100% on 3 L nasal cannula. BMI 37. HEENT: Normal conjunctivae. Oral cavity: Pharynx pink and moist. NECK: Supple. LUNGS: Clear to auscultation. HEART: S1 and S2. ABDOMEN: Obese. Bowel sounds active. Soft, nontender. EXTREMITIES: No gross edema or cyanosis. Chronic stasis changes noted. SKIN: Warm without rash. NEUROLOGIC: Alert and oriented times 3. Moves all extremities. LABORATORY DATA: Today's WBC 10.1, hemoglobin 8.9, platelets 113,000. Sodium 134, potassium 4.0, creatinine 2.1, BUN 48, glucose 228, repeat lactic acid 1.9, total bilirubin 0.5, AST 87, ALT 75. Creatinine kinase 258. Troponin 0.055. BNP 8501, albumin 2.5, lipase 43. MRSA screen positive. Random vancomycin trough 18.3. Urinalysis per HPI. Urine culture in process. Blood cultures show Gram-positive cocci in pairs and chains suggestive of strep and strep in 2 of 2 bottles from 12/31/2017. IMAGING DATA: Head/cervical spine CT: No acute fractures. Chest x-ray showed clear lungs. No pneumothorax or pleural effusion. X-ray of left ankle shows osteopenia and soft tissue swelling notable at the lateral aspect of the talus and calcaneus. IMPRESSION: 1. Sepsis with Gram-positive bacteremia suggestive of strep, present on admission. 2. Lactic acidosis. 3. Pyuria. 4. Fever. 5. Leukocytosis. 6. Positive Methicillin-resistant Staphylococcus aureus in nares. 7. Acute kidney injury. 8. Loose stools. 9. Musculoskeletal pain status post fall. 10. Atrial fibrillation, on amiodarone therapy. 11. Diabetes mellitus type 2. 12. Hypothyroidism. 13. Chronic obstructive pulmonary disease, oxygen dependent. PLAN: Discontinue the vancomycin and levofloxacin. Continue the Zosyn for now. Awaiting GPC identification and sensitivities. Continue to monitor laboratory values and temperature. Continue the probiotics. Thank you, Dr. Menard, for asking us to participate in this patient's care. Should you have further questions or concerns, please call. ANGELY RAMIREZ MD DR: GABI/stuart JOB#: [id number] / [id number]
[2018-01-03] MEDS: COLESTIPOL HCL 1 GM TABLET PO SCH (09:50)
[2018-01-03] MEDS: OXYBUTYNIN CHLORIDE 5 MG TABLET PO SCH ×3 (09:50→21:40)
[2018-01-03] MEDS: ISOSORBIDE MONONITRATE ER 30 MG TAB.ER.24H PO SCH (09:51)
[2018-01-03] MEDS: LACTOBACILLUS RHAMNOSUS GG 1 CAPSULE. PO SCH ×2 (09:51→21:41)
[2018-01-03] MEDS: FUROSEMIDE 40 MG TABLET. PO SCH (09:51)
[2018-01-03] MEDS: ASPIRIN ENTERIC COATED 81 MG TABLET.DR. PO SCH (09:51)
[2018-01-03] MEDS: PANTOPRAZOLE 40 MG TABLET.DR. PO SCH (09:51)
[2018-01-03] MEDS: APIXABAN 5 MG TABLET. PO SCH ×2 (09:52→21:41)
[2018-01-03] MEDS: AMIODARONE HCL 200 MG TABLET. PO SCH (09:52)
[2018-01-03] MEDS: VENLAFAXINE 50 MG TABLET. PO SCH ×3 (09:53→21:41)
[2018-01-03] MEDS: IRON POLYSACCHARIDE COMPLEX 150 MG CAPSULE PO SCH ×2 (09:53→21:41)
[2018-01-03] MEDS: LOSARTAN POTASSIUM 50 MG TABLET. PO SCH (09:53)
[2018-01-03] MEDS: GABAPENTIN 100 MG CAPSULE. PO SCH ×2 (09:58→21:42)
[2018-01-03] MEDS: DICLOFENAC SODIUM 1% TOPICAL GEL 100GM TUBE. TP SCH ×4 (10:07→21:40)
--- NOTE | 2018-01-03 10:18 | PDOC ---
PROGRESS NOTES Subjective Subjective She c/o neck pain and stiffness. Objective Objective Vital Signs Date Time Temp Pulse Resp B/P (MAP) Pulse Ox O2 Delivery O2 Flow Rate FiO2 01/03/18 09:58 73 134/51 01/03/18 07:00 99.2 18 99 Nasal Cannula 2.5 99.2 Intake and Output 01/03/18 07:00 Intake Total 980 ml Output Total 50 ml Balance 930 ml Intake Oral 980 ml Output Urine Total 50 ml # Voids 2 Physical Exam Physical Exam She had tenderness to palpation over cervical paraspinal and upper trapezius muscles and painfully limited cervical spine ROM. She has sanjiv getting up with roller walker. Assessment Assessment Problems Medical Problems: (1) UTI (urinary tract infection) Status: Acute (2) Weakness Status: Acute Plan Plan of Care To ask physical therapy to try physical modalities to help ease her neck pain and to arrange for home health physical therapy follow up when she is ready to go home. Comment Review of Relevant I have reviewed the following items brooke (where applicable) has been applied. Labs Laboratory Tests Test 01/01/18 11:40 01/01/18 16:48 01/01/18 22:33 01/01/18 23:05 Glucose (Fingerstick) 242 mg/dL (70-99) 141 mg/dL (70-99) 45 mg/dL (70-99) 125 mg/dL (70-99) Test 01/02/18 05:50 01/02/18 06:18 01/02/18 08:31 01/02/18 11:30 Glucose (Fingerstick) 69 mg/dL (70-99) 142 mg/dL (70-99) 138 mg/dL (70-99) Sodium Level 137 mmol/L (136-145) Potassium Level 4.2 mmol/L (3.5-5.1) Chloride Level 104 mmol/L (98-107) Carbon Dioxide Level 26 mmol/L (21-32) Anion Gap 7 (6-14) Blood Urea Nitrogen 46 mg/dL (7-20) Creatinine 1.8 mg/dL (0.6-1.0) Estimated GFR (Cockcroft-Gault) 27.9 Glucose Level 176 mg/dL (70-99) Calcium Level 7.5 mg/dL (8.5-10.1) Test 01/02/18 11:48 01/02/18 16:06 01/02/18 21:10 01/02/18 22:11 Glucose (Fingerstick) 185 mg/dL (70-99) 181 mg/dL (70-99) 56 mg/dL (70-99) 69 mg/dL (70-99) Test 01/03/18 02:40 01/03/18 05:12 01/03/18 07:23 Sodium Level 135 mmol/L (136-145) Potassium Level 4.4 mmol/L (3.5-5.1) Chloride Level 102 mmol/L (98-107) Carbon Dioxide Level 26 mmol/L (21-32) Anion Gap 7 (6-14) Blood Urea Nitrogen 42 mg/dL (7-20) Creatinine 1.6 mg/dL (0.6-1.0) Estimated GFR (Cockcroft-Gault) 32.0 Glucose Level 52 mg/dL (70-99) Calcium Level 7.7 mg/dL (8.5-10.1) Glucose (Fingerstick) 73 mg/dL (70-99) 87 mg/dL (70-99) Laboratory Tests Test 01/02/18 11:30 01/02/18 11:48 01/02/18 16:06 01/02/18 21:10 Sodium Level 137 mmol/L (136-145) Potassium Level 4.2 mmol/L (3.5-5.1) Chloride Level 104 mmol/L (98-107) Carbon Dioxide Level 26 mmol/L (21-32) Anion Gap 7 (6-14) Blood Urea Nitrogen 46 mg/dL (7-20) Creatinine 1.8 mg/dL (0.6-1.0) Estimated GFR (Cockcroft-Gault) 27.9 Glucose Level 176 mg/dL (70-99) Calcium Level 7.5 mg/dL (8.5-10.1) Glucose (Fingerstick) 185 mg/dL (70-99) 181 mg/dL (70-99) 56 mg/dL (70-99) Test 01/02/18 22:11 01/03/18 02:40 01/03/18 05:12 01/03/18 07:23 Glucose (Fingerstick) 69 mg/dL (70-99) 73 mg/dL (70-99) 87 mg/dL (70-99) Sodium Level 135 mmol/L (136-145) Potassium Level 4.4 mmol/L (3.5-5.1) Chloride Level 102 mmol/L (98-107) Carbon Dioxide Level 26 mmol/L (21-32) Anion Gap 7 (6-14) Blood Urea Nitrogen 42 mg/dL (7-20) Creatinine 1.6 mg/dL (0.6-1.0) Estimated GFR (Cockcroft-Gault) 32.0 Glucose Level 52 mg/dL (70-99) Calcium Level 7.7 mg/dL (8.5-10.1) Microbiology 12/31/17 Blood Culture - Final, Complete 12/31/17 Blood Culture Result 1 (DEEPTI) - Final, Complete 12/30/17 Urine Culture - Final, Complete 12/30/17 Urine Culture Result 1 (DEEPTI) - Final, Complete Medications Current Medications Acetaminophen/ Hydrocodone Bitart (Lortab 5/325) 1 tab 1X ONCE PO ; Start at 22:00; Stop 12/30/17 at 22:01; Status Cancel Ceftriaxone Sodium 50 ml @ 100 mls/hr 1X ONCE IV Last administered on at 01:25; Start 12/30/17 at 23:30; Stop 12/30/17 at 23:59; Status DC Ondansetron HCl (Zofran) 4 mg PRN Q8HRS PRN IV NAUSEA/VOMITING 1ST CHOICE; Start 12/30/17 at 23:30; Stop 12/31/17 at 23:29; Status DC Morphine Sulfate (Morphine Sulfate) 2 mg PRN Q2HR PRN IV SEVERE PAIN; Start at 23:30; Stop 12/31/17 at 23:29; Status DC Acetaminophen (Tylenol) 1,000 mg 1X ONCE PO Last administered on 12/31/17at 01 :26; Start 12/31/17 at 01:30; Stop 12/31/17 at 01:31; Status DC Piperacillin Sod/ Tazobactam Sod 3.375 gm/Sodium Chloride 50 ml @ 100 mls/hr Q6HRS IV ; Start 12/31/17 at 06:00; Status UNV Levofloxacin/ Dextrose 100 ml @ 100 mls/hr 1X ONCE IV Last administered on at 03:15; Start 12/31/17 at 03:00; Stop 12/31/17 at 03:59; Status DC Piperacillin Sod/ Tazobactam Sod 2.25 gm/Sodium Chloride 50 ml @ 100 mls/hr Q8HRS IV Last administered on 01/03/18at 05:53; Start 12/31/17 at 06:00 Levofloxacin/ Dextrose 50 ml @ 50 mls/hr Q24H IV Last administered on at 04:59; Start 01/01/18 at 06:00; Stop 01/01/18 at 13:22; Status DC Sodium Chloride 1,000 ml @ 1,000 mls/hr 1X ONCE IV Last administered on 12/31at 13:00; Start 12/31/17 at 13:00; Stop 12/31/17 at 13:59; Status DC Sodium Chloride 1,000 ml @ 100 mls/hr Q10H IV Last administered on 01/02/18at 20:59; Start 12/31/17 at 12:15 Vancomycin HCl 1 gm/Sodium Chloride 250 ml @ 250 mls/hr Q24H IV ; Start at 12:15; Status UNV Insulin Human Regular 150 unit/ Sodium Chloride 151.5 ml @ 0 mls/hr CONT PRN IV SEE I/O RECORD Last administered on 12/31/17at 14:37; Start 12/31/17 at 12: 15; Stop 12/31/17 at 18:59; Status DC Amiodarone HCl (Cordarone) 100 mg DAILY PO Last administered on 01/03/18at 09: 52; Start 12/31/17 at 13:00 Apixaban (Eliquis) 5 mg BID PO Last administered on 01/03/18 09:52; Start at 13:00 Aspirin (Ecotrin) 81 mg DAILY PO Last administered on 01/03/18 09:51; Start 12/31/17 at 13:00 Albuterol/ Ipratropium (Duoneb) 3 ml RTQID IH Last administered on 01/03/18at 06:54; Start 12/31/17 at 13:00 Pantoprazole Sodium (Protonix) 40 mg DAILYAC PO Last administered on at 09:51; Start 12/31/17 at 13:00 Info (Anti-Coagulation Monitoring By Pharmacy) 1 each PRN DAILY PRN MC SEE COMMENTS Last administered on 01/02/18at 15:25; Start 12/31/17 at 12:30 Vancomycin HCl 1.75 gm/Sodium Chloride 500 ml @ 250 mls/hr 1X ONCE IV ; Start 12/31/17 at 13:00; Stop 12/31/17 at 14:59; Status Cancel Vancomycin HCl (Vanco Per Pharmacy) 1 each PRN DAILY PRN MC SEE COMMENTS Last administered on 12/31/17at 16:03; Start 12/31/17 at 12:30; Stop 01/01/18 at 13 :22; Status DC Vancomycin HCl 2 gm/Sodium Chloride 500 ml @ 250 mls/hr 1X ONCE IV Last administered on 12/31/17at 13:08; Start 12/31/17 at 13:00; Stop 12/31/17 at 14 :59; Status DC Levothyroxine Sodium (Synthroid) 150 mcg DAILY06 PO Last administered on at 05:53; Start 12/31/17 at 16:30 Vancomycin HCl (Vancomycin Random Level) 1 each 1X ONCE MC Last administered on 01/01/18at 14:38; Start 01/01/18 at 03:00; Stop 01/01/18 at 12:04; Status DC Lactobacillus Rhamnosus (Culturelle) 1 cap BID PO Last administered on at 09:51; Start 12/31/17 at 21:00 Colestipol HCl (Colestid) 1 gm DAILY PO Last administered on 01/03/18at 09:50; Start 01/01/18 at 09:00 Diclofenac Sodium (Voltaren) 1 myrtle QID TP Last administered on 01/03/18at 10:07 ; Start 12/31/17 at 21:00 Ferrous Sulfate (Feosol) 325 mg DAILY PO Last administered on 01/01/18at 08:59 ; Start 01/01/18 at 09:00; Stop 01/01/18 at 13:26; Status DC Furosemide (Lasix) 40 mg DAILY PO Last administered on 01/03/18at 09:51; Start 01/01/18 at 09:00 Gabapentin (Neurontin) 100 mg BID PO Last administered on 01/03/18at 09:58; Start 12/31/17 at 21:00 Acetaminophen/ Hydrocodone Bitart (Lortab 5/325) 1 tab PRN Q6HRS PRN PO PAIN Last administered on 12/31/17 22:23; Start 12/31/17 at 19:00; Stop 01/01/18 at 08:14; Status DC Isosorbide Mononitrate (Imdur) 30 mg DAILY PO Last administered on 01/03/18 09:51; Start 01/01/18 at 09:00 Losartan Potassium (Cozaar) 50 mg DAILY PO Last administered on 01/03/18 09: 53; Start 12/31/17 at 20:00 Metoprolol Succinate (Toprol Xl) 25 mg DAILY PO Last administered on 09:58; Start 12/31/17 at 20:00 Oxybutynin Chloride (Ditropan) 5 mg TID PO Last administered on 01/03/18 09: 50; Start 12/31/17 at 21:00 Potassium Chloride (Klor-Con) 10 meq DAILY PO Last administered on 01/02/18 08:55; Start 01/01/18 at 09:00 Trazodone HCl (Desyrel) 200 mg HS PO Last administered on 01/02/18 20:56; Start 12/31/17 at 21:00 Non-Formulary Medication (Albuterol Sulfate (Ventolin Hfa Inhaler)) 2 puff Q4HRS PRN INH SHORTNESS OF BREATH; Start 12/31/17 at 19:00; Status UNV Non-Formulary Medication (Alendronate Sodium (Fosamax)) 1 tab WEEKLY PO ; Start 01/07/18 at 09:00; Status UNV Atorvastatin Calcium (Lipitor) 80 mg QHS PO Last administered on 01/02/18 20: 57; Start 12/31/17 at 21:00 Non-Formulary Medication (Fluticasone/ Salmeterol (Advair 250-50 Diskus)) 1 inh BID IH ; Start 12/31/17 at 21:00; Status UNV Insulin Human Lispro (HumaLOG) 30 units TIDWMEALS SQ Last administered on 01/02at 16:15; Start 01/01/18 at 08:00 Insulin Glargine (Lantus) 52 units BID SQ Last administered on 01/01/18at 09:21 ; Start 12/31/17 at 21:00 Venlafaxine HCl (Effexor) 50 mg TID PO Last administered on 01/03/18at 09:53; Start 01/01/18 at 09:00 Insulin Human Lispro (HumaLOG) 0-9 UNITS TIDWMEALS SQ Last administered on at 16:16; Start 12/31/17 at 20:00 Dextrose (Dextrose 50%-Water Syringe) 12.5 gm PRN Q15MIN PRN IV SEE COMMENTS Last administered on 01/02/18at 05:55; Start 12/31/17 at 19:00 Budesonide (Pulmicort) 0.5 mg RTBID NEB Last administered on 01/03/18at 06:54; Start 12/31/17 at 20:00 Albuterol Sulfate (Ventolin Neb Soln) 2.5 mg RTQID NEB ; Start 12/31/17 at 20: 00; Status UNV Albuterol Sulfate (Ventolin Neb Soln) 2.5 mg PRN Q4HRS PRN NEB SHORTNESS OF BREATH; Start 12/31/17 at 19:30 Morphine Sulfate (Morphine Sulfate) 2 mg PRN Q2HR PRN IV PAIN MILD; Start at 08:15 Acetaminophen/ Hydrocodone Bitart (Lortab 5/325) 1 tab PRN Q4HRS PRN PO PAIN Last administered on 01/02/18at 12:59; Start 01/01/18 at 08:15 Ondansetron HCl (Zofran) 4 mg PRN Q6HRS PRN IV NAUSEA/VOMITING 1ST CHOICE; Start 01/01/18 at 08:15 Ondansetron HCl (Zofran Odt) 4 mg PRN Q6HRS PRN PO NAUSEA/VOMITING 1ST CHOICE; Start 01/01/18 at 08:15 Diclofenac Sodium (Voltaren) 1 myrtle BID TP ; Start 01/01/18 at 21:00; Status UNV Polysaccharide Iron Complex (Niferex 150) 150 mg BID PO Last administered on at 09:53; Start 01/01/18 at 21:00 Cyclobenzaprine HCl (Flexeril) 10 mg PRN TID PRN PO MUSCLE SPASMS; Start 01/02 at 18:45 Cyclobenzaprine HCl (Flexeril) 10 mg TID PO Last administered on 01/02/18at 20: 57; Start 01/02/18 at 21:00 Active Scripts Active Furosemide 40 Mg Tablet 40 Mg PO DAILY 30 Days Amiodarone Hcl 200 Mg Tablet 100 Mg PO DAILY 30 Days Reported Metoprolol Succinate ( Xl ) (Metoprolol Succinate) 25 Mg Tab.er.24h 1 Tab PO DAILY Hydrocodone-Apap 5-325 (Hydrocodone Bit/Acetaminophen) 1 Each Tablet 1 Tab PO PRN Q6HRS PRN Voltaren (Diclofenac Sodium) 100 Gm Gel..gram. 1 Gm TP QID Potassium Chloride 10 Meq Tablet.er 10 Meq PO DAILY Ferrous Sulfate 325 Mg Tablet 325 Mg PO DAILY Gabapentin 100 Mg Capsule 100 Mg PO BID Colestipol Hcl 1 Gm Tablet 1 Gm PO DAILY Oxybutynin Chloride 5 Mg Tablet 5 Mg PO TID Lipitor (Atorvastatin Calcium) 80 Mg Tablet 80 Mg PO HS Levothyroxine Sodium 150 Mcg Tablet 1 Tab PO DAILY Isosorbide Mononitrate Er (Isosorbide Mononitrate) 30 Mg Tab.er.24h 1 Tab PO DAILY Fosamax (Alendronate Sodium) 70 Mg Tablet 1 Tab PO WEEKLY Eliquis (Apixaban) 5 Mg Tablet 5 Mg PO BID Aspir 81 (Aspirin) 81 Mg Tablet.dr 1 Tab PO DAILY Lantus (Insulin Glargine,Hum.rec.anlog) 100 Unit/1 Ml Vial 52 Unit SQ BID MAY INCREASE FOR BLOOD SUGARS GREATER THAN 200 FASTING Advair 250-50 Diskus (Fluticasone/Salmeterol) 1 Each Disk.w.dev 1 Inh IH BID Duoneb 0.5-3(2.5) Mg/3 Ml (Albuterol/Ipratropium) 3 Ml Ampul.neb 3 Ml IH QID Ventolin Hfa Inhaler (Albuterol Sulfate) 18 Gm Hfa.aer.ad 2 Puff INH Q4HRS PRN Venlafaxine Hcl Er (Venlafaxine Hcl) 150 Mg Cap.er.24h 150 Mg PO DAILY Novolog Flexpen (Insulin Aspart) 100 Unit/1 Ml Insuln.pen 30 Unit SQ TIDAC Vitamin D2 (Ergocalciferol (Vitamin D2)) 50,000 Unit Capsule 50,000 Unit PO TWICE WEEKLY Losartan Potassium 50 Mg Tablet 50 Mg PO DAILY Pantoprazole Sodium 40 Mg Tablet.dr 40 Mg PO DAILY Trazodone Hcl 100 Mg Tablet 200 Mg PO HS Vitals/I & O Vital Sign - Last 24 Hours 01/02/18 01/02/18 01/02/18 01/02/18 11:00 11:09 12:59 13:49 Temp 97.5 97.5 Pulse 70 Resp 18 B/P (MAP) 111/50 (70) Pulse Ox 100 100 O2 Delivery Nasal Cannula Nasal Cannula Nasal Cannula Nasal Cannula O2 Flow Rate 3.0 2.0 3.0 3.0 01/02/18 01/02/18 01/02/18 01/02/18 15:00 19:00 20:00 23:00 Temp 97.8 98.1 101.3 97.8 98.1 101.3 Pulse 70 78 72 Resp 18 18 18 B/P (MAP) 115/47 (69) 121/45 (70) 125/45 (71) Pulse Ox 100 100 95 O2 Delivery Nasal Cannula Nasal Cannula Nasal Cannula Nasal Cannula O2 Flow Rate 3.0 3.0 3.0 3.0 01/03/18 01/03/18 01/03/18 01/03/18 01:04 03:00 06:53 07:00 Temp 100.1 99.4 99.2 100.1 99.4 99.2 Pulse 70 73 Resp 18 18 B/P (MAP) 113/45 (67) 134/51 (78) Pulse Ox 96 98 99 O2 Delivery Nasal Cannula Nasal Cannula Nasal Cannula O2 Flow Rate 3.0 2.0 2.5 01/03/18 01/03/18 01/03/18 01/03/18 09:51 09:52 09:53 09:58 Pulse 73 73 73 73 B/P (MAP) 134/51 134/51 134/51 134/51 Intake and Output 01/02/18 01/02/18 01/03/18 15:00 23:00 07:00 Intake Total 300 ml 480 ml 200 ml Output Total 50 ml Balance 300 ml 480 ml 150 ml OLVIN LAI MD Jan 03, 2018 10:18
[2018-01-03] MEDS: CYCLOBENZAPRINE 10 MG TABLET. PO SCH ×3 (10:48→21:41)
[2018-01-03 11:00] VITALS: BP 155/57
[2018-01-03] MEDS ORDERED: LABETALOL 20 MG/4 ML DISP.SYRIN. IVP PRN (12:00)
[2018-01-03] MEDS ORDERED: INSULIN LISPRO 300 UNITS/3 ML INSULN.PEN. SQ SCH (12:00)
--- NOTE | 2018-01-03 12:54 | PDOC ---
Infectious Disease Note Subjective: Subjective Feeling better but having some shoulder (L>R) and neck pain. h/o neck fusions years ago Denies F/C /diarrhea/n/v ROS: ROS Negative except for above. Vital Signs: Vital Signs Vital Signs Date Time Temp Pulse Resp B/P (MAP) Pulse Ox O2 Delivery O2 Flow Rate FiO2 01/03/18 11:00 98.4 75 18 155/57 (89) 99 Nasal Cannula 2.5 98.4 Physical Exam: PHYSICAL EXAM GENERAL: Resting quietly HEENT: Oral cavity, pharynx pink and dry. Edentulous NECK: Ice pack posteriorly LUNGS: Clear to auscultation. HEART: S1 and S2. ABDOMEN: Obese, soft, NT EXTREMITIES: No gross edema or cyanosis. Chronic stasis changes noted. Ice pack left ankle in place SKIN: Warm without rash. NEUROLOGIC: Alert and oriented times 3. Moves all extremities. Medications: Inpatient Meds: Current Medications Medications (Trade) Dose Ordered Sig/Kerry Start Time Stop Time Status Last Admin Dose Admin Acetaminophen (Tylenol) 1,000 mg 1X ONCE 12/31/17 01:30 12/31/17 01:31 DC 12/31/17 01:26 1,000 MG Acetaminophen/ Hydrocodone Bitart (Lortab 5/325) 1 tab PRN Q4HRS PRN 01/01/18 08:15 01/02/18 12:59 1 TAB Albuterol Sulfate (Ventolin Neb Soln) 2.5 mg PRN Q4HRS PRN 12/31/17 19:30 Albuterol/ Ipratropium (Duoneb) 3 ml RTQID 12/31/17 13:00 01/03/18 06:54 3 ML Amiodarone HCl (Cordarone) 100 mg DAILY 12/31/17 13:00 01/03/18 09:52 100 MG Apixaban (Eliquis) 5 mg BID 12/31/17 13:00 01/03/18 09:52 5 MG Aspirin (Ecotrin) 81 mg DAILY 12/31/17 13:00 01/03/18 09:51 81 MG Atorvastatin Calcium (Lipitor) 80 mg QHS 12/31/17 21:00 01/02/18 20:57 80 MG Budesonide (Pulmicort) 0.5 mg RTBID 12/31/17 20:00 01/03/18 06:54 0.5 MG Ceftriaxone Sodium 50 ml @ 100 mls/hr 1X ONCE 12/30/17 23:30 12/30/17 23:59 DC 12/31/17 01:25 100 MLS/HR Colestipol HCl (Colestid) 1 gm DAILY 01/01/18 09:00 01/03/18 09:50 1 GM Cyclobenzaprine HCl (Flexeril) 10 mg TID 01/02/18 21:00 01/03/18 10:48 10 MG Dextrose (Dextrose 50%-Water Syringe) 12.5 gm PRN Q15MIN PRN 12/31/17 19:00 01/02/18 05:55 12.5 GM Diclofenac Sodium (Voltaren) 1 myrtle BID 01/01/18 21:00 UNV Ferrous Sulfate (Feosol) 325 mg DAILY 01/01/18 09:00 01/01/18 13:26 DC 01/01/18 08:59 325 MG Furosemide (Lasix) 40 mg DAILY 01/01/18 09:00 01/03/18 09:51 40 MG Gabapentin (Neurontin) 100 mg BID 12/31/17 21:00 01/03/18 09:58 100 MG Info (Anti-Coagulation Monitoring By Pharmacy) 1 each PRN DAILY PRN 12/31/17 12:30 01/02/18 15:25 1 EACH Insulin Glargine (Lantus) 30 units QHS 01/03/18 21:00 Insulin Human Lispro (HumaLOG) 10 units TIDWMEALS 01/03/18 12:00 Insulin Human Regular 150 unit/ Sodium Chloride 151.5 ml @ 0 mls/hr CONT PRN 12/31/17 12:15 12/31/17 18:59 DC 12/31/17 14:37 6.9 MLS/HR Isosorbide Mononitrate (Imdur) 30 mg DAILY 01/01/18 09:00 01/03/18 09:51 30 MG Labetalol HCl (Normodyne Iv Push) 20 mg PRN Q2HR PRN 01/03/18 12:00 Lactobacillus Rhamnosus (Culturelle) 1 cap BID 12/31/17 21:00 01/03/18 09:51 1 CAP Levofloxacin/ Dextrose 50 ml @ 50 mls/hr Q24H 01/01/18 06:00 01/01/18 13:22 DC 01/01/18 04:59 50 MLS/HR Levothyroxine Sodium (Synthroid) 150 mcg DAILY06 12/31/17 16:30 01/03/18 05:53 150 MCG Losartan Potassium (Cozaar) 50 mg DAILY 12/31/17 20:00 01/03/18 09:53 50 MG Metoprolol Succinate (Toprol Xl) 25 mg DAILY 12/31/17 20:00 01/02/18 08:57 25 MG Morphine Sulfate (Morphine Sulfate) 2 mg PRN Q2HR PRN 01/01/18 08:15 Non-Formulary Medication (Albuterol Sulfate (Ventolin Hfa Inhaler)) 2 puff Q4HRS PRN 12/31/17 19:00 UNV Non-Formulary Medication (Alendronate Sodium (Fosamax)) 1 tab WEEKLY 01/07/18 09:00 UNV Non-Formulary Medication (Fluticasone/ Salmeterol (Advair 250-50 Diskus)) 1 inh BID 12/31/17 21:00 UNV Ondansetron HCl (Zofran Odt) 4 mg PRN Q6HRS PRN 01/01/18 08:15 Ondansetron HCl (Zofran) 4 mg PRN Q6HRS PRN 01/01/18 08:15 Oxybutynin Chloride (Ditropan) 5 mg TID 12/31/17 21:00 01/03/18 09:50 5 MG Pantoprazole Sodium (Protonix) 40 mg DAILYAC 12/31/17 13:00 01/03/18 09:51 40 MG Piperacillin Sod/ Tazobactam Sod 2.25 gm/Sodium Chloride 50 ml @ 100 mls/hr Q8HRS 12/31/17 06:00 01/03/18 05:53 100 MLS/HR Piperacillin Sod/ Tazobactam Sod 3.375 gm/Sodium Chloride 50 ml @ 100 mls/hr Q6HRS 12/31/17 06:00 UNV Polysaccharide Iron Complex (Niferex 150) 150 mg BID 01/01/18 21:00 01/03/18 09:53 150 MG Potassium Chloride (Klor-Con) 10 meq DAILY 01/01/18 09:00 01/03/18 09:00 10 MEQ Sodium Chloride 1,000 ml @ 100 mls/hr Q10H 12/31/17 12:15 01/02/18 20:59 100 MLS/HR Trazodone HCl (Desyrel) 200 mg HS 12/31/17 21:00 01/02/18 20:56 200 MG Vancomycin HCl (Vanco Per Pharmacy) 1 each PRN DAILY PRN 12/31/17 12:30 01/01/18 13:22 DC 12/31/17 16:03 1 EACH Vancomycin HCl (Vancomycin Random Level) 1 each 1X ONCE 01/01/18 03:00 01/01/18 12:04 DC 01/01/18 14:38 1 EACH Vancomycin HCl 1.75 gm/Sodium Chloride 500 ml @ 250 mls/hr 1X ONCE 12/31/17 13:00 12/31/17 14:59 Cancel Vancomycin HCl 1 gm/Sodium Chloride 250 ml @ 250 mls/hr Q24H 12/31/17 12:15 UNV Vancomycin HCl 2 gm/Sodium Chloride 500 ml @ 250 mls/hr 1X ONCE 12/31/17 13:00 12/31/17 14:59 DC 12/31/17 13:08 250 MLS/HR Venlafaxine HCl (Effexor) 50 mg TID 01/01/18 09:00 01/03/18 09:53 50 MG Labs: Lab Laboratory Tests Test 01/02/18 16:06 01/02/18 21:10 01/02/18 22:11 01/03/18 02:40 Glucose (Fingerstick) 181 mg/dL (70-99) 56 mg/dL (70-99) 69 mg/dL (70-99) Sodium Level 135 mmol/L (136-145) Potassium Level 4.4 mmol/L (3.5-5.1) Chloride Level 102 mmol/L (98-107) Carbon Dioxide Level 26 mmol/L (21-32) Anion Gap 7 (6-14) Blood Urea Nitrogen 42 mg/dL (7-20) Creatinine 1.6 mg/dL (0.6-1.0) Estimated GFR (Cockcroft-Gault) 32.0 Glucose Level 52 mg/dL (70-99) Calcium Level 7.7 mg/dL (8.5-10.1) Test 01/03/18 05:12 01/03/18 07:23 01/03/18 10:37 Glucose (Fingerstick) 73 mg/dL (70-99) 87 mg/dL (70-99) 187 mg/dL (70-99) Micro RUN DATE: 01/02/18 PAGE 1 RUN TIME: 1413 [facility] [address] [place] [address] Cuong Fabian M.D., Nut Sifter PATIENT: HERBERT LERNER ACCT: [id number] LOC: [address] [place] [address] U : [id number] AGE/SX: 67/F ROOM: [facility] REG : 12/30/[address]: RAMONITA GORDON MD : [id number] BED: 1 DIS : STATUS: ADM IN TLOC: SPEC #: [id number] CORNEL: 12/31/17 STATUS: COMP REQ #: [id number] RECD: 12/31/[address]: CHERYLE BARNES APRN SOURCE: BLOOD ENTR: 12/31/17-[address]: RAMONITA GORDON MD [facility]: STEFANO PENA NP ORDERED: STEVE CULT - LC Procedure Result BLOOD CULTURE LC Final Final report BLD CULT RESULT 1 Final Comment Beta hemolytic Streptococcus, group G Penicillin and ampicillin are drugs of choice for treatment of beta-hemolytic streptococcal infections. Susceptibility testing of penicillins and other beta-lactam agents approved by the FDA for treatment of beta-hemolytic streptococcal infections need not be performed routinely because nonsusceptible isolates are extremely rare in any beta-hemolytic streptococcus and have not been reported for Streptococcus pyogenes (group A). (CLSI) Performed at: DA - [facility] [address] [facility] [address], [place], [place] [id number] Linotype Operator: VIOLETA Mendez MD, Phone: [phone] Objective: Assessment: Grp G streptococcus bacteremia Lactic acidosis Pyuria (POA) - UC neg Fever - better Leukocytosis - better high lft s Positive MRSA nares MANDIE improving Loose stools MS pain s/p fall. neck/shoulder an left ankle pains A-fib, on amiodarone therapy DM II Hypothyroidism COPD, O2 dependent Plan: Plan of Care Dc Zosyn start ceftriaxone 2 gm IV Qdaily Last dose vanc and Levaquin (01/01) Monitor labs/temp monitor neck area closely Probiotics ANGELINE PEREZ MD Jan 03, 2018 12:54
--- NOTE | 2018-01-03 14:42 | PDOC ---
PROGRESS NOTES Chief Complaint Chief Complaint UTI, bacteremia MSSA Sepsis no organ dysfcn BAck pain sp physiatry injections LEft ankle sprain from recent fal - no fx Generalized weakness-HH on dc BMI 48, overweight Dm2 ON Insulin copd Pafib on elqiuis sylvie, VAsomotor HTN plan: fu with id switch zosyn to ceftriaxone now decrease insulin to 15u lantus qhs, aspart 5u tid, ssi cont eliquis PTOT, FU WITH Dr. Bree durant for possible rehab consider dc ivf tmr History of Present Illness History of Present Illness ROS: nO chills, sob or chest pain T 101.3 c/o neck pain after fall at home, CT cervical neg for fx low sugar Vitals Vitals Vital Signs Date Time Temp Pulse Resp B/P (MAP) Pulse Ox O2 Delivery O2 Flow Rate FiO2 01/03/18 11:00 98.4 75 18 155/57 (89) 99 Nasal Cannula 2.5 98.4 Physical Exam Physical Exam GENERAL: Resting quietly HEENT: Oral cavity, pharynx pink and dry. Edentulous NECK: Ice pack posteriorly LUNGS: Clear to auscultation. HEART: S1 and S2. ABDOMEN: Obese, soft, NT EXTREMITIES: No gross edema or cyanosis. Chronic stasis changes noted. Ice pack left ankle in place SKIN: Warm without rash. NEUROLOGIC: Alert and oriented times 3. Moves all extremities. General: Alert, Oriented X3, Cooperative Heart: Regular rate, Normal S1, Normal S2 Lungs: Clear, Other Abdomen: Normal bowel sounds, Soft Extremities: Other (left ankle scar/tenderness, pain on palpation) Skin: No rashes, No breakdown, No significant lesion Labs LABS Laboratory Tests Test 01/02/18 16:06 01/02/18 21:10 01/02/18 22:11 01/03/18 02:40 Glucose (Fingerstick) 181 mg/dL (70-99) 56 mg/dL (70-99) 69 mg/dL (70-99) Sodium Level 135 mmol/L (136-145) Potassium Level 4.4 mmol/L (3.5-5.1) Chloride Level 102 mmol/L (98-107) Carbon Dioxide Level 26 mmol/L (21-32) Anion Gap 7 (6-14) Blood Urea Nitrogen 42 mg/dL (7-20) Creatinine 1.6 mg/dL (0.6-1.0) Estimated GFR (Cockcroft-Gault) 32.0 Glucose Level 52 mg/dL (70-99) Calcium Level 7.7 mg/dL (8.5-10.1) Test 01/03/18 05:12 01/03/18 07:23 01/03/18 10:37 Glucose (Fingerstick) 73 mg/dL (70-99) 87 mg/dL (70-99) 187 mg/dL (70-99) Assessment and Plan Assessmemt and Plan Problems Medical Problems: (1) UTI (urinary tract infection) Status: Acute (2) Weakness Status: Acute Comment Review of Relevant I have reviewed the following items brooke (where applicable) has been applied. Labs Laboratory Tests Test 01/01/18 16:48 01/01/18 22:33 01/01/18 23:05 01/02/18 05:50 Glucose (Fingerstick) 141 mg/dL (70-99) 45 mg/dL (70-99) 125 mg/dL (70-99) 69 mg/dL (70-99) Test 01/02/18 06:18 01/02/18 08:31 01/02/18 11:30 01/02/18 11:48 Glucose (Fingerstick) 142 mg/dL (70-99) 138 mg/dL (70-99) 185 mg/dL (70-99) Sodium Level 137 mmol/L (136-145) Potassium Level 4.2 mmol/L (3.5-5.1) Chloride Level 104 mmol/L (98-107) Carbon Dioxide Level 26 mmol/L (21-32) Anion Gap 7 (6-14) Blood Urea Nitrogen 46 mg/dL (7-20) Creatinine 1.8 mg/dL (0.6-1.0) Estimated GFR (Cockcroft-Gault) 27.9 Glucose Level 176 mg/dL (70-99) Calcium Level 7.5 mg/dL (8.5-10.1) Test 01/02/18 16:06 01/02/18 21:10 01/02/18 22:11 01/03/18 02:40 Glucose (Fingerstick) 181 mg/dL (70-99) 56 mg/dL (70-99) 69 mg/dL (70-99) Sodium Level 135 mmol/L (136-145) Potassium Level 4.4 mmol/L (3.5-5.1) Chloride Level 102 mmol/L (98-107) Carbon Dioxide Level 26 mmol/L (21-32) Anion Gap 7 (6-14) Blood Urea Nitrogen 42 mg/dL (7-20) Creatinine 1.6 mg/dL (0.6-1.0) Estimated GFR (Cockcroft-Gault) 32.0 Glucose Level 52 mg/dL (70-99) Calcium Level 7.7 mg/dL (8.5-10.1) Test 01/03/18 05:12 01/03/18 07:23 01/03/18 10:37 Glucose (Fingerstick) 73 mg/dL (70-99) 87 mg/dL (70-99) 187 mg/dL (70-99) Laboratory Tests Test 01/02/18 16:06 01/02/18 21:10 01/02/18 22:11 01/03/18 02:40 Glucose (Fingerstick) 181 mg/dL (70-99) 56 mg/dL (70-99) 69 mg/dL (70-99) Sodium Level 135 mmol/L (136-145) Potassium Level 4.4 mmol/L (3.5-5.1) Chloride Level 102 mmol/L (98-107) Carbon Dioxide Level 26 mmol/L (21-32) Anion Gap 7 (6-14) Blood Urea Nitrogen 42 mg/dL (7-20) Creatinine 1.6 mg/dL (0.6-1.0) Estimated GFR (Cockcroft-Gault) 32.0 Glucose Level 52 mg/dL (70-99) Calcium Level 7.7 mg/dL (8.5-10.1) Test 01/03/18 05:12 01/03/18 07:23 01/03/18 10:37 Glucose (Fingerstick) 73 mg/dL (70-99) 87 mg/dL (70-99) 187 mg/dL (70-99) Microbiology 12/31/17 Blood Culture - Final, Complete 12/31/17 Blood Culture Result 1 (DEEPTI) - Final, Complete 12/30/17 Urine Culture - Final, Complete 12/30/17 Urine Culture Result 1 (DEEPTI) - Final, Complete Medications Current Medications Acetaminophen/ Hydrocodone Bitart (Lortab 5/325) 1 tab 1X ONCE PO ; Start at 22:00; Stop 12/30/17 at 22:01; Status Cancel Ceftriaxone Sodium 50 ml @ 100 mls/hr 1X ONCE IV Last administered on at 01:25; Start 12/30/17 at 23:30; Stop 12/30/17 at 23:59; Status DC Ondansetron HCl (Zofran) 4 mg PRN Q8HRS PRN IV NAUSEA/VOMITING 1ST CHOICE; Start 12/30/17 at 23:30; Stop 12/31/17 at 23:29; Status DC Morphine Sulfate (Morphine Sulfate) 2 mg PRN Q2HR PRN IV SEVERE PAIN; Start at 23:30; Stop 12/31/17 at 23:29; Status DC Acetaminophen (Tylenol) 1,000 mg 1X ONCE PO Last administered on 12/31/17at 01 :26; Start 12/31/17 at 01:30; Stop 12/31/17 at 01:31; Status DC Piperacillin Sod/ Tazobactam Sod 3.375 gm/Sodium Chloride 50 ml @ 100 mls/hr Q6HRS IV ; Start 12/31/17 at 06:00; Status UNV Levofloxacin/ Dextrose 100 ml @ 100 mls/hr 1X ONCE IV Last administered on at 03:15; Start 12/31/17 at 03:00; Stop 12/31/17 at 03:59; Status DC Piperacillin Sod/ Tazobactam Sod 2.25 gm/Sodium Chloride 50 ml @ 100 mls/hr Q8HRS IV Last administered on 01/03/18at 05:53; Start 12/31/17 at 06:00; Stop 01/03/18 at 13:11; Status DC Levofloxacin/ Dextrose 50 ml @ 50 mls/hr Q24H IV Last administered on at 04:59; Start 01/01/18 at 06:00; Stop 01/01/18 at 13:22; Status DC Sodium Chloride 1,000 ml @ 1,000 mls/hr 1X ONCE IV Last administered on 12/31at 13:00; Start 12/31/17 at 13:00; Stop 12/31/17 at 13:59; Status DC Sodium Chloride 1,000 ml @ 100 mls/hr Q10H IV Last administered on 01/02/18at 20:59; Start 12/31/17 at 12:15 Vancomycin HCl 1 gm/Sodium Chloride 250 ml @ 250 mls/hr Q24H IV ; Start at 12:15; Status UNV Insulin Human Regular 150 unit/ Sodium Chloride 151.5 ml @ 0 mls/hr CONT PRN IV SEE I/O RECORD Last administered on 12/31/17at 14:37; Start 12/31/17 at 12: 15; Stop 12/31/17 at 18:59; Status DC Amiodarone HCl (Cordarone) 100 mg DAILY PO Last administered on 01/03/18 09: 52; Start 12/31/17 at 13:00 Apixaban (Eliquis) 5 mg BID PO Last administered on 01/03/18 09:52; Start at 13:00 Aspirin (Ecotrin) 81 mg DAILY PO Last administered on 01/03/18 09:51; Start 12/31/17 at 13:00 Albuterol/ Ipratropium (Duoneb) 3 ml RTQID IH Last administered on 01/03/18 06:54; Start 12/31/17 at 13:00 Pantoprazole Sodium (Protonix) 40 mg DAILYAC PO Last administered on 09:51; Start 12/31/17 at 13:00 Info (Anti-Coagulation Monitoring By Pharmacy) 1 each PRN DAILY PRN MC SEE COMMENTS Last administered on 01/02/18at 15:25; Start 12/31/17 at 12:30 Vancomycin HCl 1.75 gm/Sodium Chloride 500 ml @ 250 mls/hr 1X ONCE IV ; Start 12/31/17 at 13:00; Stop 12/31/17 at 14:59; Status Cancel Vancomycin HCl (Vanco Per Pharmacy) 1 each PRN DAILY PRN MC SEE COMMENTS Last administered on 12/31/17at 16:03; Start 12/31/17 at 12:30; Stop 01/01/18 at 13 :22; Status DC Vancomycin HCl 2 gm/Sodium Chloride 500 ml @ 250 mls/hr 1X ONCE IV Last administered on 12/31/17at 13:08; Start 12/31/17 at 13:00; Stop 12/31/17 at 14 :59; Status DC Levothyroxine Sodium (Synthroid) 150 mcg DAILY06 PO Last administered on 05:53; Start 12/31/17 at 16:30 Vancomycin HCl (Vancomycin Random Level) 1 each 1X ONCE MC Last administered on 01/01/18 14:38; Start 01/01/18 at 03:00; Stop 01/01/18 at 12:04; Status DC Lactobacillus Rhamnosus (Culturelle) 1 cap BID PO Last administered on 09:51; Start 12/31/17 at 21:00 Colestipol HCl (Colestid) 1 gm DAILY PO Last administered on 01/03/18 09:50; Start 01/01/18 at 09:00 Diclofenac Sodium (Voltaren) 1 myrtle QID TP Last administered on 01/03/18 10:07 ; Start 12/31/17 at 21:00 Ferrous Sulfate (Feosol) 325 mg DAILY PO Last administered on 01/01/18 08:59 ; Start 01/01/18 at 09:00; Stop 01/01/18 at 13:26; Status DC Furosemide (Lasix) 40 mg DAILY PO Last administered on 01/03/18 09:51; Start 01/01/18 at 09:00 Gabapentin (Neurontin) 100 mg BID PO Last administered on 01/03/18 09:58; Start 12/31/17 at 21:00 Acetaminophen/ Hydrocodone Bitart (Lortab 5/325) 1 tab PRN Q6HRS PRN PO PAIN Last administered on 12/31/17at 22:23; Start 12/31/17 at 19:00; Stop 01/01/18 at 08:14; Status DC Isosorbide Mononitrate (Imdur) 30 mg DAILY PO Last administered on 01/03/18 09:51; Start 01/01/18 at 09:00 Losartan Potassium (Cozaar) 50 mg DAILY PO Last administered on 01/03/18 09: 53; Start 12/31/17 at 20:00 Metoprolol Succinate (Toprol Xl) 25 mg DAILY PO Last administered on at 08:57; Start 12/31/17 at 20:00 Oxybutynin Chloride (Ditropan) 5 mg TID PO Last administered on 01/03/18 09: 50; Start 12/31/17 at 21:00 Potassium Chloride (Klor-Con) 10 meq DAILY PO Last administered on 01/03/18at 09:00; Start 01/01/18 at 09:00 Trazodone HCl (Desyrel) 200 mg HS PO Last administered on 01/02/18at 20:56; Start 12/31/17 at 21:00 Non-Formulary Medication (Albuterol Sulfate (Ventolin Hfa Inhaler)) 2 puff Q4HRS PRN INH SHORTNESS OF BREATH; Start 12/31/17 at 19:00; Status UNV Non-Formulary Medication (Alendronate Sodium (Fosamax)) 1 tab WEEKLY PO ; Start 01/07/18 at 09:00; Status UNV Atorvastatin Calcium (Lipitor) 80 mg QHS PO Last administered on 01/02/18at 20: 57; Start 12/31/17 at 21:00 Non-Formulary Medication (Fluticasone/ Salmeterol (Advair 250-50 Diskus)) 1 inh BID IH ; Start 12/31/17 at 21:00; Status UNV Insulin Human Lispro (HumaLOG) 30 units TIDWMEALS SQ Last administered on 01/02at 16:15; Start 01/01/18 at 08:00; Stop 01/03/18 at 11:52; Status DC Insulin Glargine (Lantus) 52 units BID SQ Last administered on 01/01/18at 09:21 ; Start 12/31/17 at 21:00; Stop 01/03/18 at 11:51; Status DC Venlafaxine HCl (Effexor) 50 mg TID PO Last administered on 01/03/18 09:53; Start 01/01/18 at 09:00 Insulin Human Lispro (HumaLOG) 0-9 UNITS TIDWMEALS SQ Last administered on at 12:52; Start 12/31/17 at 20:00 Dextrose (Dextrose 50%-Water Syringe) 12.5 gm PRN Q15MIN PRN IV SEE COMMENTS Last administered on 01/02/18at 05:55; Start 12/31/17 at 19:00 Budesonide (Pulmicort) 0.5 mg RTBID NEB Last administered on 01/03/18at 06:54; Start 12/31/17 at 20:00 Albuterol Sulfate (Ventolin Neb Soln) 2.5 mg RTQID NEB ; Start 12/31/17 at 20: 00; Status UNV Albuterol Sulfate (Ventolin Neb Soln) 2.5 mg PRN Q4HRS PRN NEB SHORTNESS OF BREATH; Start 12/31/17 at 19:30 Morphine Sulfate (Morphine Sulfate) 2 mg PRN Q2HR PRN IV PAIN MILD; Start at 08:15 Acetaminophen/ Hydrocodone Bitart (Lortab 5/325) 1 tab PRN Q4HRS PRN PO PAIN Last administered on 01/02/18at 12:59; Start 01/01/18 at 08:15 Ondansetron HCl (Zofran) 4 mg PRN Q6HRS PRN IV NAUSEA/VOMITING 1ST CHOICE; Start 01/01/18 at 08:15 Ondansetron HCl (Zofran Odt) 4 mg PRN Q6HRS PRN PO NAUSEA/VOMITING 1ST CHOICE; Start 01/01/18 at 08:15 Diclofenac Sodium (Voltaren) 1 myrtle BID TP ; Start 01/01/18 at 21:00; Status UNV Polysaccharide Iron Complex (Niferex 150) 150 mg BID PO Last administered on at 09:53; Start 01/01/18 at 21:00 Cyclobenzaprine HCl (Flexeril) 10 mg PRN TID PRN PO MUSCLE SPASMS; Start 01/02 at 18:45 Cyclobenzaprine HCl (Flexeril) 10 mg TID PO Last administered on 01/03/18at 10: 48; Start 01/02/18 at 21:00 Insulin Human Lispro (HumaLOG) 10 units TIDWMEALS SQ Last administered on 01/03at 12:53; Start 01/03/18 at 12:00 Insulin Glargine (Lantus) 30 units QHS SQ ; Start 01/03/18 at 21:00 Labetalol HCl (Normodyne Iv Push) 20 mg PRN Q2HR PRN IVP HYPERTENSION, SEE COMMENTS; Start 01/03/18 at 12:00 Ceftriaxone Sodium 2 gm/ Dextrose 100 ml @ 200 mls/hr Q24H IV ; Start at 14:00 Active Scripts Active Furosemide 40 Mg Tablet 40 Mg PO DAILY 30 Days Amiodarone Hcl 200 Mg Tablet 100 Mg PO DAILY 30 Days Reported Metoprolol Succinate ( Xl ) (Metoprolol Succinate) 25 Mg Tab.er.24h 1 Tab PO DAILY Hydrocodone-Apap 5-325 (Hydrocodone Bit/Acetaminophen) 1 Each Tablet 1 Tab PO PRN Q6HRS PRN Voltaren (Diclofenac Sodium) 100 Gm Gel..gram. 1 Gm TP QID Potassium Chloride 10 Meq Tablet.er 10 Meq PO DAILY Ferrous Sulfate 325 Mg Tablet 325 Mg PO DAILY Gabapentin 100 Mg Capsule 100 Mg PO BID Colestipol Hcl 1 Gm Tablet 1 Gm PO DAILY Oxybutynin Chloride 5 Mg Tablet 5 Mg PO TID Lipitor (Atorvastatin Calcium) 80 Mg Tablet 80 Mg PO HS Levothyroxine Sodium 150 Mcg Tablet 1 Tab PO DAILY Isosorbide Mononitrate Er (Isosorbide Mononitrate) 30 Mg Tab.er.24h 1 Tab PO DAILY Fosamax (Alendronate Sodium) 70 Mg Tablet 1 Tab PO WEEKLY Eliquis (Apixaban) 5 Mg Tablet 5 Mg PO BID Aspir 81 (Aspirin) 81 Mg Tablet. 1 Tab PO DAILY Lantus (Insulin Glargine,Hum.rec.anlog) 100 Unit/1 Ml Vial 52 Unit SQ BID MAY INCREASE FOR BLOOD SUGARS GREATER THAN 200 FASTING Advair 250-50 Diskus (Fluticasone/Salmeterol) 1 Each Disk.w.dev 1 Inh IH BID Duoneb 0.5-3(2.5) Mg/3 Ml (Albuterol/Ipratropium) 3 Ml Ampul.neb 3 Ml IH QID Ventolin Hfa Inhaler (Albuterol Sulfate) 18 Gm Hfa.aer.ad 2 Puff INH Q4HRS PRN Venlafaxine Hcl Er (Venlafaxine Hcl) 150 Mg Cap.er.24h 150 Mg PO DAILY Novolog Flexpen (Insulin Aspart) 100 Unit/1 Ml Insuln.pen 30 Unit SQ TIDAC Vitamin D2 (Ergocalciferol (Vitamin D2)) 50,000 Unit Capsule 50,000 Unit PO TWICE WEEKLY Losartan Potassium 50 Mg Tablet 50 Mg PO DAILY Pantoprazole Sodium 40 Mg Tablet.dr 40 Mg PO DAILY Trazodone Hcl 100 Mg Tablet 200 Mg PO HS Vitals/I & O Vital Sign - Last 24 Hours 01/02/18 01/02/18 01/02/18 01/02/18 15:00 19:00 20:00 23:00 Temp 97.8 98.1 101.3 97.8 98.1 101.3 Pulse 70 78 72 Resp 18 18 18 B/P (MAP) 115/47 (69) 121/45 (70) 125/45 (71) Pulse Ox 100 100 95 O2 Delivery Nasal Cannula Nasal Cannula Nasal Cannula Nasal Cannula O2 Flow Rate 3.0 3.0 3.0 3.0 01/03/18 01/03/18 01/03/18 01/03/18 01:04 03:00 06:53 07:00 Temp 100.1 99.4 99.2 100.1 99.4 99.2 Pulse 70 73 Resp 18 18 B/P (MAP) 113/45 (67) 134/51 (78) Pulse Ox 96 98 99 O2 Delivery Nasal Cannula Nasal Cannula Nasal Cannula O2 Flow Rate 3.0 2.0 2.5 01/03/18 01/03/18 01/03/18 01/03/18 08:30 09:51 09:52 09:53 Pulse 73 73 73 B/P (MAP) 134/51 134/51 134/51 O2 Delivery Nasal Cannula O2 Flow Rate 3.0 01/03/18 11:00 Temp 98.4 98.4 Pulse 75 Resp 18 B/P (MAP) 155/57 (89) Pulse Ox 99 O2 Delivery Nasal Cannula O2 Flow Rate 2.5 Intake and Output 01/02/18 01/02/18 01/03/18 15:00 23:00 07:00 Intake Total 300 ml 480 ml 200 ml Output Total 50 ml Balance 300 ml 480 ml 150 ml ANNY LORA MD Jan 03, 2018 14:42
[2018-01-03] MEDS: cefTRIAXone SODIUM 2 GM in IV DEXTROSE 5% 100ML 100 ML IV SCH ×2 (14:55→14:59)
[2018-01-03] MEDS: HYDROcodone/APAP 5/325MG 1 TAB TABLET PO PRN (14:57)
[2018-01-03 15:00] VITALS: BP 154/55
[2018-01-03] MEDS: IV NORMAL SALINE 1000ML BAG 1,000 ML IV SCH (17:37)
[2018-01-03 19:00] VITALS: BP 142/59
[2018-01-03] MEDS ORDERED: INSULIN GLARGINE 300 UNITS/3 ML INSULN.PEN. SQ SCH ×2 (21:00)
[2018-01-03] MEDS: traZODone 100 MG TABLET. PO SCH (21:41)
[2018-01-03] MEDS: ATORVASTATIN CALCIUM 40 MG TABLET. PO SCH (21:43)
[2018-01-03 23:00] VITALS: BP 147/70
[2018-01-04 03:10] VITALS: BP 153/58
[2018-01-04] MEDS: IV NORMAL SALINE 1000ML BAG 1,000 ML IV SCH (03:36)
[2018-01-04] MEDS: LEVOTHYROXINE 150 MCG TABLET PO SCH (05:57)
[2018-01-04 07:00] VITALS: BP 185/62
[2018-01-04] MEDS: PANTOPRAZOLE 40 MG TABLET.DR. PO SCH (07:38)
[2018-01-04] MEDS: BUDESONIDE 0.5 MG/2 ML NEBU. NEB SCH ×2 (07:54→19:42)
[2018-01-04] MEDS: IPRATRPIUM/ALBUTEROL 0.5/2.5MG 3 ML NEBU. IH SCH ×4 (07:54→19:42)
[2018-01-04 08:33] LABS: CALCIUM 8.1 mg/dL (8.5-10.1); CREATININE 1.3 mg/dL (0.6-1.0); GFR 40.6; POTASSIUM 4.1 mmol/L (3.5-5.1)
[2018-01-04 08:37] LABS: BASO % 0 % (0-3); EOS % 0 % (0-3); HEMATOCRIT 23.9 % (36.0-47.0); HEMOGLOBIN 8.3 g/dL (12.0-15.5); LYMPH # 0.7 x10^3/uL (1.0-4.8); LYMPH % 7 % (24-48); MEAN CORPUSCULAR HEMOGLOBIN 31 pg (25-35); MEAN CORPUSCULAR HGB CONC 35 g/dL (31-37); MEAN CORPUSCULAR VOLUME 90 fL (79-100); MONO # 0.9 x10^3/uL (0.0-1.1); MONO % 10 % (0-9); NEUT # 7.7 x10^3uL (1.8-7.7); NEUT % 82 % (31-73); PLATELET COUNT 130 x10^3/uL (140-400); RED BLOOD COUNT 2.64 x10^6/uL (3.50-5.40); RED CELL DISTRIBUTION WIDTH 15.1 % (11.5-14.5); WHITE BLOOD COUNT 9.4 x10^3/uL (4.0-11.0)
[2018-01-04] MEDS: DICLOFENAC SODIUM 1% TOPICAL GEL 100GM TUBE. TP SCH ×4 (09:00→21:46)
[2018-01-04] MEDS: IRON POLYSACCHARIDE COMPLEX 150 MG CAPSULE PO SCH ×2 (09:18→21:51)
[2018-01-04] MEDS: APIXABAN 5 MG TABLET. PO SCH ×2 (09:18→21:47)
[2018-01-04] MEDS: POTASSIUM CHLORIDE 10 MEQ TABLET.ER. PO SCH (09:18)
[2018-01-04] MEDS: ASPIRIN ENTERIC COATED 81 MG TABLET.DR. PO SCH (09:18)
[2018-01-04] MEDS: CYCLOBENZAPRINE 10 MG TABLET. PO SCH ×3 (09:18→21:47)
[2018-01-04] MEDS: VENLAFAXINE 50 MG TABLET. PO SCH ×3 (09:18→21:50)
[2018-01-04] MEDS: FUROSEMIDE 40 MG TABLET. PO SCH (09:18)
[2018-01-04] MEDS: ISOSORBIDE MONONITRATE ER 30 MG TAB.ER.24H PO SCH (09:19)
[2018-01-04] MEDS: METOPROLOL SUCC 24HR ER 25 MG TAB.ER.24H. PO SCH (09:20)
[2018-01-04] MEDS: OXYBUTYNIN CHLORIDE 5 MG TABLET PO SCH ×3 (09:20→21:50)
[2018-01-04] MEDS: LACTOBACILLUS RHAMNOSUS GG 1 CAPSULE. PO SCH ×2 (09:20→21:47)
[2018-01-04] MEDS: LOSARTAN POTASSIUM 50 MG TABLET. PO SCH ×2 (09:21→15:54)
[2018-01-04] MEDS: AMIODARONE HCL 200 MG TABLET. PO SCH (09:21)
[2018-01-04] MEDS: INSULIN LISPRO 300 UNITS/3 ML INSULN.PEN. SQ SCH ×6 (09:33→17:26)
[2018-01-04] MEDS: COLESTIPOL HCL 1 GM TABLET PO SCH (10:09)
[2018-01-04] MEDS: GABAPENTIN 100 MG CAPSULE. PO SCH ×2 (10:09→21:48)
--- NOTE | 2018-01-04 10:57 | PDOC ---
Infectious Disease Note Subjective: Subjective Feeling better Denies F/C /diarrhea/n/v underwent doppler U/S of LUE r/o DVT ROS: ROS Negative except for above. Vital Signs: Vital Signs Vital Signs Date Time Temp Pulse Resp B/P (MAP) Pulse Ox O2 Delivery O2 Flow Rate FiO2 01/04/18 09:21 80 185/62 01/04/18 07:56 98 Nasal Cannula 3.0 01/04/18 07:00 97.9 18 97.9 Physical Exam: PHYSICAL EXAM GENERAL: Resting quietly HEENT: Oral cavity, pharynx pink and dry. Edentulous NECK: Ice pack posteriorly LUNGS: Clear to auscultation. HEART: S1 and S2. ABDOMEN: Obese, soft, NT EXTREMITIES: No gross edema or cyanosis. Chronic stasis changes noted. Ice pack left ankle in place SKIN: Warm without rash. NEUROLOGIC: Alert and oriented times 3. Moves all extremities. Medications: Inpatient Meds: Current Medications Medications (Trade) Dose Ordered Sig/Kerry Start Time Stop Time Status Last Admin Dose Admin Acetaminophen (Tylenol) 1,000 mg 1X ONCE 12/31/17 01:30 12/31/17 01:31 DC 12/31/17 01:26 1,000 MG Acetaminophen/ Hydrocodone Bitart (Lortab 5/325) 1 tab PRN Q4HRS PRN 01/01/18 08:15 01/03/18 14:57 1 TAB Albuterol Sulfate (Ventolin Neb Soln) 2.5 mg PRN Q4HRS PRN 12/31/17 19:30 Albuterol/ Ipratropium (Duoneb) 3 ml RTQID 12/31/17 13:00 01/04/18 07:54 3 ML Amiodarone HCl (Cordarone) 100 mg DAILY 12/31/17 13:00 01/04/18 09:21 100 MG Apixaban (Eliquis) 5 mg BID 12/31/17 13:00 01/04/18 09:18 5 MG Aspirin (Ecotrin) 81 mg DAILY 12/31/17 13:00 01/04/18 09:18 81 MG Atorvastatin Calcium (Lipitor) 80 mg QHS 12/31/17 21:00 01/03/18 21:43 80 MG Budesonide (Pulmicort) 0.5 mg RTBID 12/31/17 20:00 01/04/18 07:54 0.5 MG Ceftriaxone Sodium 2 gm/ Dextrose 100 ml @ 200 mls/hr Q24H 01/03/18 14:00 01/03/18 14:59 200 MLS/HR Ceftriaxone Sodium 50 ml @ 100 mls/hr 1X ONCE 12/30/17 23:30 12/30/17 23:59 DC 12/31/17 01:25 100 MLS/HR Colestipol HCl (Colestid) 1 gm DAILY 01/01/18 09:00 01/04/18 10:09 1 GM Cyclobenzaprine HCl (Flexeril) 10 mg TID 01/02/18 21:00 01/04/18 09:18 10 MG Dextrose (Dextrose 50%-Water Syringe) 12.5 gm PRN Q15MIN PRN 12/31/17 19:00 01/02/18 05:55 12.5 GM Diclofenac Sodium (Voltaren) 1 myrtle BID 01/01/18 21:00 UNV Ferrous Sulfate (Feosol) 325 mg DAILY 01/01/18 09:00 01/01/18 13:26 DC 01/01/18 08:59 325 MG Furosemide (Lasix) 40 mg DAILY 01/01/18 09:00 01/04/18 09:18 40 MG Gabapentin (Neurontin) 100 mg BID 12/31/17 21:00 01/04/18 10:09 100 MG Info (Anti-Coagulation Monitoring By Pharmacy) 1 each PRN DAILY PRN 12/31/17 12:30 01/02/18 15:25 1 EACH Insulin Glargine (Lantus) 15 units QHS 01/03/18 21:00 01/03/18 21:53 15 UNITS Insulin Human Lispro (HumaLOG) 5 units TIDWMEALS 01/03/18 17:00 01/04/18 09:35 5 UNITS Insulin Human Regular 150 unit/ Sodium Chloride 151.5 ml @ 0 mls/hr CONT PRN 12/31/17 12:15 12/31/17 18:59 DC 12/31/17 14:37 6.9 MLS/HR Isosorbide Mononitrate (Imdur) 30 mg DAILY 01/01/18 09:00 01/04/18 09:19 30 MG Labetalol HCl (Normodyne Iv Push) 20 mg PRN Q2HR PRN 01/03/18 12:00 Lactobacillus Rhamnosus (Culturelle) 1 cap BID 12/31/17 21:00 01/04/18 09:20 1 CAP Levofloxacin/ Dextrose 50 ml @ 50 mls/hr Q24H 01/01/18 06:00 01/01/18 13:22 DC 01/01/18 04:59 50 MLS/HR Levothyroxine Sodium (Synthroid) 150 mcg DAILY06 12/31/17 16:30 01/04/18 05:57 150 MCG Losartan Potassium (Cozaar) 50 mg DAILY 12/31/17 20:00 01/04/18 09:21 50 MG Metoprolol Succinate (Toprol Xl) 25 mg DAILY 12/31/17 20:00 01/04/18 09:20 25 MG Morphine Sulfate (Morphine Sulfate) 2 mg PRN Q2HR PRN 01/01/18 08:15 Non-Formulary Medication (Albuterol Sulfate (Ventolin Hfa Inhaler)) 2 puff Q4HRS PRN 12/31/17 19:00 UNV Non-Formulary Medication (Alendronate Sodium (Fosamax)) 1 tab WEEKLY 01/07/18 09:00 UNV Non-Formulary Medication (Fluticasone/ Salmeterol (Advair 250-50 Diskus)) 1 inh BID 12/31/17 21:00 UNV Ondansetron HCl (Zofran Odt) 4 mg PRN Q6HRS PRN 01/01/18 08:15 Ondansetron HCl (Zofran) 4 mg PRN Q6HRS PRN 01/01/18 08:15 Oxybutynin Chloride (Ditropan) 5 mg TID 12/31/17 21:00 01/04/18 09:20 5 MG Pantoprazole Sodium (Protonix) 40 mg DAILYAC 12/31/17 13:00 01/04/18 07:38 40 MG Piperacillin Sod/ Tazobactam Sod 2.25 gm/Sodium Chloride 50 ml @ 100 mls/hr Q8HRS 12/31/17 06:00 01/03/18 13:11 DC 01/03/18 05:53 100 MLS/HR Piperacillin Sod/ Tazobactam Sod 3.375 gm/Sodium Chloride 50 ml @ 100 mls/hr Q6HRS 12/31/17 06:00 UNV Polysaccharide Iron Complex (Niferex 150) 150 mg BID 01/01/18 21:00 01/04/18 09:18 150 MG Potassium Chloride (Klor-Con) 10 meq DAILY 01/01/18 09:00 01/04/18 09:18 10 MEQ Sodium Chloride 1,000 ml @ 100 mls/hr Q10H 12/31/17 12:15 01/04/18 03:36 100 MLS/HR Trazodone HCl (Desyrel) 200 mg HS 12/31/17 21:00 01/03/18 21:41 200 MG Vancomycin HCl (Vanco Per Pharmacy) 1 each PRN DAILY PRN 12/31/17 12:30 01/01/18 13:22 DC 12/31/17 16:03 1 EACH Vancomycin HCl (Vancomycin Random Level) 1 each 1X ONCE 01/01/18 03:00 01/01/18 12:04 DC 01/01/18 14:38 1 EACH Vancomycin HCl 1.75 gm/Sodium Chloride 500 ml @ 250 mls/hr 1X ONCE 12/31/17 13:00 12/31/17 14:59 Cancel Vancomycin HCl 1 gm/Sodium Chloride 250 ml @ 250 mls/hr Q24H 12/31/17 12:15 UNV Vancomycin HCl 2 gm/Sodium Chloride 500 ml @ 250 mls/hr 1X ONCE 12/31/17 13:00 12/31/17 14:59 DC 12/31/17 13:08 250 MLS/HR Venlafaxine HCl (Effexor) 50 mg TID 01/01/18 09:00 01/04/18 09:18 50 MG Labs: Lab Laboratory Tests Test 01/03/18 17:03 01/03/18 20:30 01/04/18 08:04 01/04/18 08:06 Glucose (Fingerstick) 142 mg/dL (70-99) 163 mg/dL (70-99) 222 mg/dL (70-99) White Blood Count 9.4 x10^3/uL (4.0-11.0) Red Blood Count 2.64 x10^6/uL (3.50-5.40) Hemoglobin 8.3 g/dL (12.0-15.5) Hematocrit 23.9 % (36.0-47.0) Mean Corpuscular Volume 90 fL (79-100) Mean Corpuscular Hemoglobin 31 pg (25-35) Mean Corpuscular Hemoglobin Concent 35 g/dL (31-37) Red Cell Distribution Width 15.1 % (11.5-14.5) Platelet Count 130 x10^3/uL (140-400) Neutrophils (%) (Auto) 82 % (31-73) Lymphocytes (%) (Auto) 7 % (24-48) Monocytes (%) (Auto) 10 % (0-9) Eosinophils (%) (Auto) 0 % (0-3) Basophils (%) (Auto) 0 % (0-3) Neutrophils # (Auto) 7.7 x10^3uL (1.8-7.7) Lymphocytes # (Auto) 0.7 x10^3/uL (1.0-4.8) Monocytes # (Auto) 0.9 x10^3/uL (0.0-1.1) Eosinophils # (Auto) 0.0 x10^3/uL (0.0-0.7) Basophils # (Auto) 0.0 x10^3/uL (0.0-0.2) Erythrocyte Sedimentation Rate > 140 (0-25) Sodium Level 139 mmol/L (136-145) Potassium Level 4.1 mmol/L (3.5-5.1) Chloride Level 105 mmol/L (98-107) Carbon Dioxide Level 25 mmol/L (21-32) Anion Gap 9 (6-14) Blood Urea Nitrogen 33 mg/dL (7-20) Creatinine 1.3 mg/dL (0.6-1.0) Estimated GFR (Cockcroft-Gault) 40.6 Glucose Level 216 mg/dL (70-99) Calcium Level 8.1 mg/dL (8.5-10.1) C-Reactive Protein, Quantitative 282.4 mg/L (0-3.3) Micro RUN DATE: 01/02/18 PAGE 1 RUN TIME: 9979 [facility] [address] [place] [address] Cuong Fabian M.D., [employer] PATIENT: HERBERT LERNER ACCT: [id number] LOC: [address] [place] [address] U : [id number] AGE/SX: 67/F ROOM: [facility] REG : 12/30/[address]: RAMONITA GORDON MD : [id number] BED: 1 DIS : STATUS: ADM IN TLOC: SPEC #: [id number] CORNEL: 12/31/17 STATUS: COMP REQ #: [id number] RECD: 12/31/[address]: CHERYLE BARNES APRN SOURCE: BLOOD ENTR: 12/31/[address]: RAMONITA GORDON MD SPDESC: STEFANO PENA NP ORDERED: STEVE TYLER - LC Procedure Result BLOOD CULTURE LC Final Final report BLD CULT RESULT 1 Final Comment Beta hemolytic Streptococcus, group G Penicillin and ampicillin are drugs of choice for treatment of beta-hemolytic streptococcal infections. Susceptibility testing of penicillins and other beta-lactam agents approved by the FDA for treatment of beta-hemolytic streptococcal infections need not be performed routinely because nonsusceptible isolates are extremely rare in any beta-hemolytic streptococcus and have not been reported for Streptococcus pyogenes (group A). (CLSI) Performed at: DA - [facility] [address], [place], [place] [id number] Coach Driver: VIOLETA Mendez MD, Phone: [phone] Objective: Assessment: Grp G streptococcus bacteremia Lactic acidosis Pyuria (POA) - UC neg Fever - better Leukocytosis - resolved high lft s Positive MRSA nares MANDIE improving Loose stools MS pain s/p fall. neck/shoulder an left ankle pains A-fib, on amiodarone therapy DM II Hypothyroidism COPD, O2 dependent Plan: Plan of Care cont ceftriaxone Monitor labs/temp monitor neck area closely f/u doppler study Probiotics ANGELINE PEREZ MD Jan 04, 2018 10:57
[2018-01-04 11:00] VITALS: BP 160/64
--- NOTE | 2018-01-04 13:29 | PDOC ---
PROGRESS NOTES Chief Complaint Chief Complaint UTI, bacteremia MSSA Sepsis no organ dysfcn BAck, neck pain LEft ankle sprain from recent fal - no fx Generalized weakness-HH on dc BMI 48, overweight Dm2 ON Insulin copd Pafib on elqiuis mandie, VAsomotor HTN MANDIE, vasomotor plan: fu with id switch zosyn to ceftriaxone now increase insulin to 30u lantus qhs, aspart 10u tid, ssi cont eliquis, amiodarone, metoprolol, increase losartan to 100mg daily PTOT, FU WITH Dr. Bree durant for possible rehab, but pt refuse SNF dc ivf US to rule out left upper ext dvt History of Present Illness History of Present Illness ROS: nO chills, sob or chest pain T 101.3 01/03, now afebirle c/o neck pain after fall at home, CT cervical neg for fx. left arm, hand swelling high BP cr better to 1.3 Vitals Vitals Vital Signs Date Time Temp Pulse Resp B/P (MAP) Pulse Ox O2 Delivery O2 Flow Rate FiO2 01/04/18 11:20 98 Nasal Cannula 3.0 01/04/18 11:00 97.9 84 18 160/64 (96) 97.9 Physical Exam Physical Exam GENERAL: Resting quietly HEENT: Oral cavity, pharynx pink and dry. Edentulous NECK: Ice pack posteriorly LUNGS: Clear to auscultation. HEART: S1 and S2. ABDOMEN: Obese, soft, NT EXTREMITIES: No gross edema or cyanosis. Chronic stasis changes noted. Ice pack left ankle in place SKIN: Warm without rash. NEUROLOGIC: Alert and oriented times 3. Moves all extremities. General: Alert, Oriented X3, Cooperative Heart: Regular rate, Normal S1, Normal S2 Lungs: Clear, Other Abdomen: Normal bowel sounds, Soft Extremities: Other (left ankle scar/tenderness, pain on palpation) Skin: No rashes, No breakdown, No significant lesion Labs LABS Laboratory Tests Test 01/03/18 17:03 01/03/18 20:30 01/04/18 08:04 01/04/18 08:06 Glucose (Fingerstick) 142 mg/dL (70-99) 163 mg/dL (70-99) 222 mg/dL (70-99) White Blood Count 9.4 x10^3/uL (4.0-11.0) Red Blood Count 2.64 x10^6/uL (3.50-5.40) Hemoglobin 8.3 g/dL (12.0-15.5) Hematocrit 23.9 % (36.0-47.0) Mean Corpuscular Volume 90 fL (79-100) Mean Corpuscular Hemoglobin 31 pg (25-35) Mean Corpuscular Hemoglobin Concent 35 g/dL (31-37) Red Cell Distribution Width 15.1 % (11.5-14.5) Platelet Count 130 x10^3/uL (140-400) Neutrophils (%) (Auto) 82 % (31-73) Lymphocytes (%) (Auto) 7 % (24-48) Monocytes (%) (Auto) 10 % (0-9) Eosinophils (%) (Auto) 0 % (0-3) Basophils (%) (Auto) 0 % (0-3) Neutrophils # (Auto) 7.7 x10^3uL (1.8-7.7) Lymphocytes # (Auto) 0.7 x10^3/uL (1.0-4.8) Monocytes # (Auto) 0.9 x10^3/uL (0.0-1.1) Eosinophils # (Auto) 0.0 x10^3/uL (0.0-0.7) Basophils # (Auto) 0.0 x10^3/uL (0.0-0.2) Erythrocyte Sedimentation Rate > 140 (0-25) Sodium Level 139 mmol/L (136-145) Potassium Level 4.1 mmol/L (3.5-5.1) Chloride Level 105 mmol/L (98-107) Carbon Dioxide Level 25 mmol/L (21-32) Anion Gap 9 (6-14) Blood Urea Nitrogen 33 mg/dL (7-20) Creatinine 1.3 mg/dL (0.6-1.0) Estimated GFR (Cockcroft-Gault) 40.6 Glucose Level 216 mg/dL (70-99) Calcium Level 8.1 mg/dL (8.5-10.1) C-Reactive Protein, Quantitative 282.4 mg/L (0-3.3) Test 01/04/18 11:46 Glucose (Fingerstick) 283 mg/dL (70-99) Assessment and Plan Assessmemt and Plan Problems Medical Problems: (1) UTI (urinary tract infection) Status: Acute (2) Weakness Status: Acute Comment Review of Relevant I have reviewed the following items brooke (where applicable) has been applied. Labs Laboratory Tests Test 01/02/18 16:06 01/02/18 21:10 01/02/18 22:11 01/03/18 02:40 Glucose (Fingerstick) 181 mg/dL (70-99) 56 mg/dL (70-99) 69 mg/dL (70-99) Sodium Level 135 mmol/L (136-145) Potassium Level 4.4 mmol/L (3.5-5.1) Chloride Level 102 mmol/L (98-107) Carbon Dioxide Level 26 mmol/L (21-32) Anion Gap 7 (6-14) Blood Urea Nitrogen 42 mg/dL (7-20) Creatinine 1.6 mg/dL (0.6-1.0) Estimated GFR (Cockcroft-Gault) 32.0 Glucose Level 52 mg/dL (70-99) Calcium Level 7.7 mg/dL (8.5-10.1) Test 01/03/18 05:12 01/03/18 07:23 01/03/18 10:37 01/03/18 17:03 Glucose (Fingerstick) 73 mg/dL (70-99) 87 mg/dL (70-99) 187 mg/dL (70-99) 142 mg/dL (70-99) Test 01/03/18 20:30 01/04/18 08:04 01/04/18 08:06 01/04/18 11:46 Glucose (Fingerstick) 163 mg/dL (70-99) 222 mg/dL (70-99) 283 mg/dL (70-99) White Blood Count 9.4 x10^3/uL (4.0-11.0) Red Blood Count 2.64 x10^6/uL (3.50-5.40) Hemoglobin 8.3 g/dL (12.0-15.5) Hematocrit 23.9 % (36.0-47.0) Mean Corpuscular Volume 90 fL (79-100) Mean Corpuscular Hemoglobin 31 pg (25-35) Mean Corpuscular Hemoglobin Concent 35 g/dL (31-37) Red Cell Distribution Width 15.1 % (11.5-14.5) Platelet Count 130 x10^3/uL (140-400) Neutrophils (%) (Auto) 82 % (31-73) Lymphocytes (%) (Auto) 7 % (24-48) Monocytes (%) (Auto) 10 % (0-9) Eosinophils (%) (Auto) 0 % (0-3) Basophils (%) (Auto) 0 % (0-3) Neutrophils # (Auto) 7.7 x10^3uL (1.8-7.7) Lymphocytes # (Auto) 0.7 x10^3/uL (1.0-4.8) Monocytes # (Auto) 0.9 x10^3/uL (0.0-1.1) Eosinophils # (Auto) 0.0 x10^3/uL (0.0-0.7) Basophils # (Auto) 0.0 x10^3/uL (0.0-0.2) Erythrocyte Sedimentation Rate > 140 (0-25) Sodium Level 139 mmol/L (136-145) Potassium Level 4.1 mmol/L (3.5-5.1) Chloride Level 105 mmol/L (98-107) Carbon Dioxide Level 25 mmol/L (21-32) Anion Gap 9 (6-14) Blood Urea Nitrogen 33 mg/dL (7-20) Creatinine 1.3 mg/dL (0.6-1.0) Estimated GFR (Cockcroft-Gault) 40.6 Glucose Level 216 mg/dL (70-99) Calcium Level 8.1 mg/dL (8.5-10.1) C-Reactive Protein, Quantitative 282.4 mg/L (0-3.3) Laboratory Tests Test 01/03/18 17:03 01/03/18 20:30 01/04/18 08:04 01/04/18 08:06 Glucose (Fingerstick) 142 mg/dL (70-99) 163 mg/dL (70-99) 222 mg/dL (70-99) White Blood Count 9.4 x10^3/uL (4.0-11.0) Red Blood Count 2.64 x10^6/uL (3.50-5.40) Hemoglobin 8.3 g/dL (12.0-15.5) Hematocrit 23.9 % (36.0-47.0) Mean Corpuscular Volume 90 fL (79-100) Mean Corpuscular Hemoglobin 31 pg (25-35) Mean Corpuscular Hemoglobin Concent 35 g/dL (31-37) Red Cell Distribution Width 15.1 % (11.5-14.5) Platelet Count 130 x10^3/uL (140-400) Neutrophils (%) (Auto) 82 % (31-73) Lymphocytes (%) (Auto) 7 % (24-48) Monocytes (%) (Auto) 10 % (0-9) Eosinophils (%) (Auto) 0 % (0-3) Basophils (%) (Auto) 0 % (0-3) Neutrophils # (Auto) 7.7 x10^3uL (1.8-7.7) Lymphocytes # (Auto) 0.7 x10^3/uL (1.0-4.8) Monocytes # (Auto) 0.9 x10^3/uL (0.0-1.1) Eosinophils # (Auto) 0.0 x10^3/uL (0.0-0.7) Basophils # (Auto) 0.0 x10^3/uL (0.0-0.2) Erythrocyte Sedimentation Rate > 140 (0-25) Sodium Level 139 mmol/L (136-145) Potassium Level 4.1 mmol/L (3.5-5.1) Chloride Level 105 mmol/L (98-107) Carbon Dioxide Level 25 mmol/L (21-32) Anion Gap 9 (6-14) Blood Urea Nitrogen 33 mg/dL (7-20) Creatinine 1.3 mg/dL (0.6-1.0) Estimated GFR (Cockcroft-Gault) 40.6 Glucose Level 216 mg/dL (70-99) Calcium Level 8.1 mg/dL (8.5-10.1) C-Reactive Protein, Quantitative 282.4 mg/L (0-3.3) Test 01/04/18 11:46 Glucose (Fingerstick) 283 mg/dL (70-99) Microbiology 12/31/17 Blood Culture - Final, Complete 12/31/17 Blood Culture Result 1 (DEEPTI) - Final, Complete 12/30/17 Urine Culture - Final, Complete 12/30/17 Urine Culture Result 1 (DEEPTI) - Final, Complete Medications Current Medications Acetaminophen/ Hydrocodone Bitart (Lortab 5/325) 1 tab 1X ONCE PO ; Start at 22:00; Stop 12/30/17 at 22:01; Status Cancel Ceftriaxone Sodium 50 ml @ 100 mls/hr 1X ONCE IV Last administered on at 01:25; Start 12/30/17 at 23:30; Stop 12/30/17 at 23:59; Status DC Ondansetron HCl (Zofran) 4 mg PRN Q8HRS PRN IV NAUSEA/VOMITING 1ST CHOICE; Start 12/30/17 at 23:30; Stop 12/31/17 at 23:29; Status DC Morphine Sulfate (Morphine Sulfate) 2 mg PRN Q2HR PRN IV SEVERE PAIN; Start at 23:30; Stop 12/31/17 at 23:29; Status DC Acetaminophen (Tylenol) 1,000 mg 1X ONCE PO Last administered on 12/31/17at 01 :26; Start 12/31/17 at 01:30; Stop 12/31/17 at 01:31; Status DC Piperacillin Sod/ Tazobactam Sod 3.375 gm/Sodium Chloride 50 ml @ 100 mls/hr Q6HRS IV ; Start 12/31/17 at 06:00; Status UNV Levofloxacin/ Dextrose 100 ml @ 100 mls/hr 1X ONCE IV Last administered on at 03:15; Start 12/31/17 at 03:00; Stop 12/31/17 at 03:59; Status DC Piperacillin Sod/ Tazobactam Sod 2.25 gm/Sodium Chloride 50 ml @ 100 mls/hr Q8HRS IV Last administered on 01/03/18at 05:53; Start 12/31/17 at 06:00; Stop 01/03/18 at 13:11; Status DC Levofloxacin/ Dextrose 50 ml @ 50 mls/hr Q24H IV Last administered on at 04:59; Start 01/01/18 at 06:00; Stop 01/01/18 at 13:22; Status DC Sodium Chloride 1,000 ml @ 1,000 mls/hr 1X ONCE IV Last administered on 12/31at 13:00; Start 12/31/17 at 13:00; Stop 12/31/17 at 13:59; Status DC Sodium Chloride 1,000 ml @ 100 mls/hr Q10H IV Last administered on 01/04/18at 03:36; Start 12/31/17 at 12:15 Vancomycin HCl 1 gm/Sodium Chloride 250 ml @ 250 mls/hr Q24H IV ; Start at 12:15; Status UNV Insulin Human Regular 150 unit/ Sodium Chloride 151.5 ml @ 0 mls/hr CONT PRN IV SEE I/O RECORD Last administered on 12/31/17at 14:37; Start 12/31/17 at 12: 15; Stop 12/31/17 at 18:59; Status DC Amiodarone HCl (Cordarone) 100 mg DAILY PO Last administered on 01/04/18at 09: 21; Start 12/31/17 at 13:00 Apixaban (Eliquis) 5 mg BID PO Last administered on 01/04/18 09:18; Start at 13:00 Aspirin (Ecotrin) 81 mg DAILY PO Last administered on 01/04/18at 09:18; Start 12/31/17 at 13:00 Albuterol/ Ipratropium (Duoneb) 3 ml RTQID IH Last administered on 01/04/18at 11:14; Start 12/31/17 at 13:00 Pantoprazole Sodium (Protonix) 40 mg DAILYAC PO Last administered on at 07:38; Start 12/31/17 at 13:00 Info (Anti-Coagulation Monitoring By Pharmacy) 1 each PRN DAILY PRN MC SEE COMMENTS Last administered on 01/02/18at 15:25; Start 12/31/17 at 12:30 Vancomycin HCl 1.75 gm/Sodium Chloride 500 ml @ 250 mls/hr 1X ONCE IV ; Start 12/31/17 at 13:00; Stop 12/31/17 at 14:59; Status Cancel Vancomycin HCl (Vanco Per Pharmacy) 1 each PRN DAILY PRN MC SEE COMMENTS Last administered on 12/31/17at 16:03; Start 12/31/17 at 12:30; Stop 01/01/18 at 13 :22; Status DC Vancomycin HCl 2 gm/Sodium Chloride 500 ml @ 250 mls/hr 1X ONCE IV Last administered on 12/31/17at 13:08; Start 12/31/17 at 13:00; Stop 12/31/17 at 14 :59; Status DC Levothyroxine Sodium (Synthroid) 150 mcg DAILY06 PO Last administered on 05:57; Start 12/31/17 at 16:30 Vancomycin HCl (Vancomycin Random Level) 1 each 1X ONCE MC Last administered on 01/01/18 14:38; Start 01/01/18 at 03:00; Stop 01/01/18 at 12:04; Status DC Lactobacillus Rhamnosus (Culturelle) 1 cap BID PO Last administered on 09:20; Start 12/31/17 at 21:00 Colestipol HCl (Colestid) 1 gm DAILY PO Last administered on 01/04/18 10:09; Start 01/01/18 at 09:00 Diclofenac Sodium (Voltaren) 1 myrtle QID TP Last administered on 01/03/18 21:40 ; Start 12/31/17 at 21:00 Ferrous Sulfate (Feosol) 325 mg DAILY PO Last administered on 01/01/18at 08:59 ; Start 01/01/18 at 09:00; Stop 01/01/18 at 13:26; Status DC Furosemide (Lasix) 40 mg DAILY PO Last administered on 01/04/18 09:18; Start 01/01/18 at 09:00 Gabapentin (Neurontin) 100 mg BID PO Last administered on 01/04/18 10:09; Start 12/31/17 at 21:00 Acetaminophen/ Hydrocodone Bitart (Lortab 5/325) 1 tab PRN Q6HRS PRN PO PAIN Last administered on 12/31/17 22:23; Start 12/31/17 at 19:00; Stop 01/01/18 at 08:14; Status DC Isosorbide Mononitrate (Imdur) 30 mg DAILY PO Last administered on 01/04/18 09:19; Start 01/01/18 at 09:00 Losartan Potassium (Cozaar) 50 mg DAILY PO Last administered on 01/04/18 09: 21; Start 12/31/17 at 20:00 Metoprolol Succinate (Toprol Xl) 25 mg DAILY PO Last administered on 09:20; Start 12/31/17 at 20:00 Oxybutynin Chloride (Ditropan) 5 mg TID PO Last administered on 01/04/18 09: 20; Start 12/31/17 at 21:00 Potassium Chloride (Klor-Con) 10 meq DAILY PO Last administered on 01/04/18at 09:18; Start 01/01/18 at 09:00 Trazodone HCl (Desyrel) 200 mg HS PO Last administered on 01/03/18at 21:41; Start 12/31/17 at 21:00 Non-Formulary Medication (Albuterol Sulfate (Ventolin Hfa Inhaler)) 2 puff Q4HRS PRN INH SHORTNESS OF BREATH; Start 12/31/17 at 19:00; Status UNV Non-Formulary Medication (Alendronate Sodium (Fosamax)) 1 tab WEEKLY PO ; Start 01/07/18 at 09:00; Status UNV Atorvastatin Calcium (Lipitor) 80 mg QHS PO Last administered on 01/03/18at 21: 43; Start 12/31/17 at 21:00 Non-Formulary Medication (Fluticasone/ Salmeterol (Advair 250-50 Diskus)) 1 inh BID IH ; Start 12/31/17 at 21:00; Status UNV Insulin Human Lispro (HumaLOG) 30 units TIDWMEALS SQ Last administered on 01/02at 16:15; Start 01/01/18 at 08:00; Stop 01/03/18 at 11:52; Status DC Insulin Glargine (Lantus) 52 units BID SQ Last administered on 01/01/18at 09:21 ; Start 12/31/17 at 21:00; Stop 01/03/18 at 11:51; Status DC Venlafaxine HCl (Effexor) 50 mg TID PO Last administered on 01/04/18 09:18; Start 01/01/18 at 09:00 Insulin Human Lispro (HumaLOG) 0-9 UNITS TIDWMEALS SQ Last administered on at 12:41; Start 12/31/17 at 20:00 Dextrose (Dextrose 50%-Water Syringe) 12.5 gm PRN Q15MIN PRN IV SEE COMMENTS Last administered on 01/02/18at 05:55; Start 12/31/17 at 19:00 Budesonide (Pulmicort) 0.5 mg RTBID NEB Last administered on 01/04/18at 07:54; Start 12/31/17 at 20:00 Albuterol Sulfate (Ventolin Neb Soln) 2.5 mg RTQID NEB ; Start 12/31/17 at 20: 00; Status UNV Albuterol Sulfate (Ventolin Neb Soln) 2.5 mg PRN Q4HRS PRN NEB SHORTNESS OF BREATH; Start 12/31/17 at 19:30 Morphine Sulfate (Morphine Sulfate) 2 mg PRN Q2HR PRN IV PAIN MILD; Start at 08:15 Acetaminophen/ Hydrocodone Bitart (Lortab 5/325) 1 tab PRN Q4HRS PRN PO PAIN Last administered on 01/03/18at 14:57; Start 01/01/18 at 08:15 Ondansetron HCl (Zofran) 4 mg PRN Q6HRS PRN IV NAUSEA/VOMITING 1ST CHOICE; Start 01/01/18 at 08:15 Ondansetron HCl (Zofran Odt) 4 mg PRN Q6HRS PRN PO NAUSEA/VOMITING 1ST CHOICE; Start 01/01/18 at 08:15 Diclofenac Sodium (Voltaren) 1 myrtle BID TP ; Start 01/01/18 at 21:00; Status UNV Polysaccharide Iron Complex (Niferex 150) 150 mg BID PO Last administered on at 09:18; Start 01/01/18 at 21:00 Cyclobenzaprine HCl (Flexeril) 10 mg PRN TID PRN PO MUSCLE SPASMS; Start 01/02 at 18:45 Cyclobenzaprine HCl (Flexeril) 10 mg TID PO Last administered on 01/04/18at 09: 18; Start 01/02/18 at 21:00 Insulin Human Lispro (HumaLOG) 10 units TIDWMEALS SQ Last administered on 01/03at 12:53; Start 01/03/18 at 12:00; Stop 01/03/18 at 14:43; Status DC Insulin Glargine (Lantus) 30 units QHS SQ ; Start 01/03/18 at 21:00; Stop at 21:00; Status DC Labetalol HCl (Normodyne Iv Push) 20 mg PRN Q2HR PRN IVP HYPERTENSION, SEE COMMENTS; Start 01/03/18 at 12:00 Ceftriaxone Sodium 2 gm/ Dextrose 100 ml @ 200 mls/hr Q24H IV Last administered on 01/03/18at 14:59; Start 01/03/18 at 14:00 Insulin Glargine (Lantus) 15 units QHS SQ Last administered on 01/03/18at 21:53 ; Start 01/03/18 at 21:00 Insulin Human Lispro (HumaLOG) 5 units TIDWMEALS SQ Last administered on at 12:42; Start 01/03/18 at 17:00 Active Scripts Active Furosemide 40 Mg Tablet 40 Mg PO DAILY 30 Days Amiodarone Hcl 200 Mg Tablet 100 Mg PO DAILY 30 Days Reported Metoprolol Succinate ( Xl ) (Metoprolol Succinate) 25 Mg Tab.er.24h 1 Tab PO DAILY Hydrocodone-Apap 5-325 (Hydrocodone Bit/Acetaminophen) 1 Each Tablet 1 Tab PO PRN Q6HRS PRN Voltaren (Diclofenac Sodium) 100 Gm Gel..gram. 1 Gm TP QID Potassium Chloride 10 Meq Tablet.er 10 Meq PO DAILY Ferrous Sulfate 325 Mg Tablet 325 Mg PO DAILY Gabapentin 100 Mg Capsule 100 Mg PO BID Colestipol Hcl 1 Gm Tablet 1 Gm PO DAILY Oxybutynin Chloride 5 Mg Tablet 5 Mg PO TID Lipitor (Atorvastatin Calcium) 80 Mg Tablet 80 Mg PO HS Levothyroxine Sodium 150 Mcg Tablet 1 Tab PO DAILY Isosorbide Mononitrate Er (Isosorbide Mononitrate) 30 Mg Tab.er.24h 1 Tab PO DAILY Fosamax (Alendronate Sodium) 70 Mg Tablet 1 Tab PO WEEKLY Eliquis (Apixaban) 5 Mg Tablet 5 Mg PO BID Aspir 81 (Aspirin) 81 Mg Tablet. 1 Tab PO DAILY Lantus (Insulin Glargine,Hum.rec.anlog) 100 Unit/1 Ml Vial 52 Unit SQ BID MAY INCREASE FOR BLOOD SUGARS GREATER THAN 200 FASTING Advair 250-50 Diskus (Fluticasone/Salmeterol) 1 Each Disk.w.dev 1 Inh IH BID Duoneb 0.5-3(2.5) Mg/3 Ml (Albuterol/Ipratropium) 3 Ml Ampul.neb 3 Ml IH QID Ventolin Hfa Inhaler (Albuterol Sulfate) 18 Gm Hfa.aer.ad 2 Puff INH Q4HRS PRN Venlafaxine Hcl Er (Venlafaxine Hcl) 150 Mg Cap.er.24h 150 Mg PO DAILY Novolog Flexpen (Insulin Aspart) 100 Unit/1 Ml Insuln.pen 30 Unit SQ TIDAC Vitamin D2 (Ergocalciferol (Vitamin D2)) 50,000 Unit Capsule 50,000 Unit PO TWICE WEEKLY Losartan Potassium 50 Mg Tablet 50 Mg PO DAILY Pantoprazole Sodium 40 Mg Tablet.dr 40 Mg PO DAILY Trazodone Hcl 100 Mg Tablet 200 Mg PO HS Vitals/I & O Vital Sign - Last 24 Hours 01/03/18 01/03/18 01/03/18 01/03/18 14:57 15:00 17:40 19:00 Temp 98.4 97.9 98.4 97.9 Pulse 74 86 Resp 18 20 B/P (MAP) 154/55 (88) 142/59 (86) Pulse Ox 98 99 O2 Delivery Nasal Cannula Nasal Cannula Nasal Cannula Nasal Cannula O2 Flow Rate 2.5 2.5 2.5 01/03/18 01/03/18 01/04/18 01/04/18 20:00 23:00 03:10 07:00 Temp 98.6 98.6 97.9 98.6 98.6 97.9 Pulse 76 74 80 Resp 20 20 18 B/P (MAP) 147/70 (95) 153/58 (89) 185/62 (103) Pulse Ox 98 100 98 O2 Delivery Nasal Cannula Nasal Cannula Nasal Cannula Nasal Cannula O2 Flow Rate 3.0 2.5 01/04/18 01/04/18 01/04/18 01/04/18 07:56 08:30 09:19 09:20 Pulse 80 80 B/P (MAP) 185/62 185/62 Pulse Ox 98 O2 Delivery Nasal Cannula Nasal Cannula O2 Flow Rate 3.0 2.5 01/04/18 01/04/18 01/04/18 01/04/18 09:21 09:21 11:00 11:20 Temp 97.9 97.9 Pulse 80 80 84 Resp 18 B/P (MAP) 185/62 185/62 160/64 (96) Pulse Ox 97 98 O2 Delivery Nasal Cannula Nasal Cannula O2 Flow Rate 2.5 3.0 Intake and Output 01/03/18 01/03/18 01/04/18 15:00 23:00 07:00 Intake Total 240 ml 1170 ml 1180 ml Balance 240 ml 1170 ml 1180 ml ANNY LORA MD Jan 04, 2018 13:29
[2018-01-04] MEDS: HYDROcodone/APAP 5/325MG 1 TAB TABLET PO PRN (13:47)
--- NOTE | 2018-01-04 14:07 | RAD ---
Left upper extremity venous duplex study 01/04/2018 Clinical History: Left upper extremity edema Technique: Using a combination of real time ultrasound imaging and color-flow and pulse Doppler imaging techniques, including spectral analysis, graded compression and augmentation, duplex evaluation of the deep venous system of the left upper extremity was performed. Multiple images were obtained. Findings: There is no sonographic evidence of deep venous thrombosis involving the visualized deep venous structures of the left upper extremity Impression: No evidence of deep venous thrombosis involving the left upper extremity Electronically signed by: Bharat Sehrman MD (01/04/2018 2:04 PM) [id number]
--- NOTE | 2018-01-04 14:49 | PDOC ---
PROGRESS NOTES Subjective Subjective She admits of some easing of her neck pain. Objective Objective Vital Signs Date Time Temp Pulse Resp B/P (MAP) Pulse Ox O2 Delivery O2 Flow Rate FiO2 01/04/18 13:47 Nasal Cannula 3.0 01/04/18 11:20 98 01/04/18 11:00 97.9 84 18 160/64 (96) 97.9 Intake and Output 01/04/18 07:00 Intake Total 2590 ml Balance 2590 ml Intake Oral 540 ml IV Total 2050 ml # Voids 5 Physical Exam Physical Exam She is alert and sitting up in bed with head end of bed propped up and she continues with tenderness to palaption over cervical paraspinal and upper trapezius muscles bilaterally and she is getting up with roller walker. I spoke to physical therapy about rehab unit transfer but patient seems to be interested in going home. Assessment Assessment Problems Medical Problems: (1) UTI (urinary tract infection) Status: Acute (2) Weakness Status: Acute Plan Plan of Half-Way with home health physical and occupational therapy follow up when medically stable. Comment Review of Relevant I have reviewed the following items brooke (where applicable) has been applied. Labs Laboratory Tests Test 01/02/18 16:06 01/02/18 21:10 01/02/18 22:11 01/03/18 02:40 Glucose (Fingerstick) 181 mg/dL (70-99) 56 mg/dL (70-99) 69 mg/dL (70-99) Sodium Level 135 mmol/L (136-145) Potassium Level 4.4 mmol/L (3.5-5.1) Chloride Level 102 mmol/L (98-107) Carbon Dioxide Level 26 mmol/L (21-32) Anion Gap 7 (6-14) Blood Urea Nitrogen 42 mg/dL (7-20) Creatinine 1.6 mg/dL (0.6-1.0) Estimated GFR (Cockcroft-Gault) 32.0 Glucose Level 52 mg/dL (70-99) Calcium Level 7.7 mg/dL (8.5-10.1) Test 01/03/18 05:12 01/03/18 07:23 01/03/18 10:37 01/03/18 17:03 Glucose (Fingerstick) 73 mg/dL (70-99) 87 mg/dL (70-99) 187 mg/dL (70-99) 142 mg/dL (70-99) Test 01/03/18 20:30 01/04/18 08:04 01/04/18 08:06 01/04/18 11:46 Glucose (Fingerstick) 163 mg/dL (70-99) 222 mg/dL (70-99) 283 mg/dL (70-99) White Blood Count 9.4 x10^3/uL (4.0-11.0) Red Blood Count 2.64 x10^6/uL (3.50-5.40) Hemoglobin 8.3 g/dL (12.0-15.5) Hematocrit 23.9 % (36.0-47.0) Mean Corpuscular Volume 90 fL (79-100) Mean Corpuscular Hemoglobin 31 pg (25-35) Mean Corpuscular Hemoglobin Concent 35 g/dL (31-37) Red Cell Distribution Width 15.1 % (11.5-14.5) Platelet Count 130 x10^3/uL (140-400) Neutrophils (%) (Auto) 82 % (31-73) Lymphocytes (%) (Auto) 7 % (24-48) Monocytes (%) (Auto) 10 % (0-9) Eosinophils (%) (Auto) 0 % (0-3) Basophils (%) (Auto) 0 % (0-3) Neutrophils # (Auto) 7.7 x10^3uL (1.8-7.7) Lymphocytes # (Auto) 0.7 x10^3/uL (1.0-4.8) Monocytes # (Auto) 0.9 x10^3/uL (0.0-1.1) Eosinophils # (Auto) 0.0 x10^3/uL (0.0-0.7) Basophils # (Auto) 0.0 x10^3/uL (0.0-0.2) Erythrocyte Sedimentation Rate > 140 (0-25) Sodium Level 139 mmol/L (136-145) Potassium Level 4.1 mmol/L (3.5-5.1) Chloride Level 105 mmol/L (98-107) Carbon Dioxide Level 25 mmol/L (21-32) Anion Gap 9 (6-14) Blood Urea Nitrogen 33 mg/dL (7-20) Creatinine 1.3 mg/dL (0.6-1.0) Estimated GFR (Cockcroft-Gault) 40.6 Glucose Level 216 mg/dL (70-99) Calcium Level 8.1 mg/dL (8.5-10.1) C-Reactive Protein, Quantitative 282.4 mg/L (0-3.3) Laboratory Tests Test 01/03/18 17:03 01/03/18 20:30 01/04/18 08:04 01/04/18 08:06 Glucose (Fingerstick) 142 mg/dL (70-99) 163 mg/dL (70-99) 222 mg/dL (70-99) White Blood Count 9.4 x10^3/uL (4.0-11.0) Red Blood Count 2.64 x10^6/uL (3.50-5.40) Hemoglobin 8.3 g/dL (12.0-15.5) Hematocrit 23.9 % (36.0-47.0) Mean Corpuscular Volume 90 fL (79-100) Mean Corpuscular Hemoglobin 31 pg (25-35) Mean Corpuscular Hemoglobin Concent 35 g/dL (31-37) Red Cell Distribution Width 15.1 % (11.5-14.5) Platelet Count 130 x10^3/uL (140-400) Neutrophils (%) (Auto) 82 % (31-73) Lymphocytes (%) (Auto) 7 % (24-48) Monocytes (%) (Auto) 10 % (0-9) Eosinophils (%) (Auto) 0 % (0-3) Basophils (%) (Auto) 0 % (0-3) Neutrophils # (Auto) 7.7 x10^3uL (1.8-7.7) Lymphocytes # (Auto) 0.7 x10^3/uL (1.0-4.8) Monocytes # (Auto) 0.9 x10^3/uL (0.0-1.1) Eosinophils # (Auto) 0.0 x10^3/uL (0.0-0.7) Basophils # (Auto) 0.0 x10^3/uL (0.0-0.2) Erythrocyte Sedimentation Rate > 140 (0-25) Sodium Level 139 mmol/L (136-145) Potassium Level 4.1 mmol/L (3.5-5.1) Chloride Level 105 mmol/L (98-107) Carbon Dioxide Level 25 mmol/L (21-32) Anion Gap 9 (6-14) Blood Urea Nitrogen 33 mg/dL (7-20) Creatinine 1.3 mg/dL (0.6-1.0) Estimated GFR (Cockcroft-Gault) 40.6 Glucose Level 216 mg/dL (70-99) Calcium Level 8.1 mg/dL (8.5-10.1) C-Reactive Protein, Quantitative 282.4 mg/L (0-3.3) Test 01/04/18 11:46 Glucose (Fingerstick) 283 mg/dL (70-99) Microbiology 12/31/17 Blood Culture - Final, Complete 12/31/17 Blood Culture Result 1 (DEEPTI) - Final, Complete 12/30/17 Urine Culture - Final, Complete 12/30/17 Urine Culture Result 1 (DEEPTI) - Final, Complete Medications Current Medications Acetaminophen/ Hydrocodone Bitart (Lortab 5/325) 1 tab 1X ONCE PO ; Start at 22:00; Stop 12/30/17 at 22:01; Status Cancel Ceftriaxone Sodium 50 ml @ 100 mls/hr 1X ONCE IV Last administered on at 01:25; Start 12/30/17 at 23:30; Stop 12/30/17 at 23:59; Status DC Ondansetron HCl (Zofran) 4 mg PRN Q8HRS PRN IV NAUSEA/VOMITING 1ST CHOICE; Start 12/30/17 at 23:30; Stop 12/31/17 at 23:29; Status DC Morphine Sulfate (Morphine Sulfate) 2 mg PRN Q2HR PRN IV SEVERE PAIN; Start at 23:30; Stop 12/31/17 at 23:29; Status DC Acetaminophen (Tylenol) 1,000 mg 1X ONCE PO Last administered on 12/31/17at 01 :26; Start 12/31/17 at 01:30; Stop 12/31/17 at 01:31; Status DC Piperacillin Sod/ Tazobactam Sod 3.375 gm/Sodium Chloride 50 ml @ 100 mls/hr Q6HRS IV ; Start 12/31/17 at 06:00; Status UNV Levofloxacin/ Dextrose 100 ml @ 100 mls/hr 1X ONCE IV Last administered on at 03:15; Start 12/31/17 at 03:00; Stop 12/31/17 at 03:59; Status DC Piperacillin Sod/ Tazobactam Sod 2.25 gm/Sodium Chloride 50 ml @ 100 mls/hr Q8HRS IV Last administered on 01/03/18at 05:53; Start 12/31/17 at 06:00; Stop 01/03/18 at 13:11; Status DC Levofloxacin/ Dextrose 50 ml @ 50 mls/hr Q24H IV Last administered on at 04:59; Start 01/01/18 at 06:00; Stop 01/01/18 at 13:22; Status DC Sodium Chloride 1,000 ml @ 1,000 mls/hr 1X ONCE IV Last administered on 12/31at 13:00; Start 12/31/17 at 13:00; Stop 12/31/17 at 13:59; Status DC Sodium Chloride 1,000 ml @ 100 mls/hr Q10H IV Last administered on 01/04/18at 03:36; Start 12/31/17 at 12:15; Stop 01/04/18 at 13:27; Status DC Vancomycin HCl 1 gm/Sodium Chloride 250 ml @ 250 mls/hr Q24H IV ; Start at 12:15; Status UNV Insulin Human Regular 150 unit/ Sodium Chloride 151.5 ml @ 0 mls/hr CONT PRN IV SEE I/O RECORD Last administered on 12/31/17at 14:37; Start 12/31/17 at 12: 15; Stop 12/31/17 at 18:59; Status DC Amiodarone HCl (Cordarone) 100 mg DAILY PO Last administered on 01/04/18at 09: 21; Start 12/31/17 at 13:00 Apixaban (Eliquis) 5 mg BID PO Last administered on 01/04/18at 09:18; Start at 13:00 Aspirin (Ecotrin) 81 mg DAILY PO Last administered on 01/04/18at 09:18; Start 12/31/17 at 13:00 Albuterol/ Ipratropium (Duoneb) 3 ml RTQID IH Last administered on 01/04/18at 11:14; Start 12/31/17 at 13:00 Pantoprazole Sodium (Protonix) 40 mg DAILYAC PO Last administered on at 07:38; Start 12/31/17 at 13:00 Info (Anti-Coagulation Monitoring By Pharmacy) 1 each PRN DAILY PRN MC SEE COMMENTS Last administered on 01/02/18at 15:25; Start 12/31/17 at 12:30 Vancomycin HCl 1.75 gm/Sodium Chloride 500 ml @ 250 mls/hr 1X ONCE IV ; Start 12/31/17 at 13:00; Stop 12/31/17 at 14:59; Status Cancel Vancomycin HCl (Vanco Per Pharmacy) 1 each PRN DAILY PRN MC SEE COMMENTS Last administered on 12/31/17at 16:03; Start 12/31/17 at 12:30; Stop 01/01/18 at 13 :22; Status DC Vancomycin HCl 2 gm/Sodium Chloride 500 ml @ 250 mls/hr 1X ONCE IV Last administered on 12/31/17at 13:08; Start 12/31/17 at 13:00; Stop 12/31/17 at 14 :59; Status DC Levothyroxine Sodium (Synthroid) 150 mcg DAILY06 PO Last administered on at 05:57; Start 12/31/17 at 16:30 Vancomycin HCl (Vancomycin Random Level) 1 each 1X ONCE MC Last administered on 01/01/18at 14:38; Start 01/01/18 at 03:00; Stop 01/01/18 at 12:04; Status DC Lactobacillus Rhamnosus (Culturelle) 1 cap BID PO Last administered on at 09:20; Start 12/31/17 at 21:00 Colestipol HCl (Colestid) 1 gm DAILY PO Last administered on 01/04/18at 10:09; Start 01/01/18 at 09:00 Diclofenac Sodium (Voltaren) 1 myrtle QID TP Last administered on 01/04/18at 13:39 ; Start 12/31/17 at 21:00 Ferrous Sulfate (Feosol) 325 mg DAILY PO Last administered on 01/01/18at 08:59 ; Start 01/01/18 at 09:00; Stop 01/01/18 at 13:26; Status DC Furosemide (Lasix) 40 mg DAILY PO Last administered on 01/04/18 09:18; Start 01/01/18 at 09:00 Gabapentin (Neurontin) 100 mg BID PO Last administered on 01/04/18 10:09; Start 12/31/17 at 21:00 Acetaminophen/ Hydrocodone Bitart (Lortab 5/325) 1 tab PRN Q6HRS PRN PO PAIN Last administered on 12/31/17 22:23; Start 12/31/17 at 19:00; Stop 01/01/18 at 08:14; Status DC Isosorbide Mononitrate (Imdur) 30 mg DAILY PO Last administered on 01/04/18 09:19; Start 01/01/18 at 09:00 Losartan Potassium (Cozaar) 50 mg DAILY PO Last administered on 01/04/18 09: 21; Start 12/31/17 at 20:00; Stop 01/04/18 at 13:27; Status DC Metoprolol Succinate (Toprol Xl) 25 mg DAILY PO Last administered on 09:20; Start 12/31/17 at 20:00 Oxybutynin Chloride (Ditropan) 5 mg TID PO Last administered on 01/04/18 13: 38; Start 12/31/17 at 21:00 Potassium Chloride (Klor-Con) 10 meq DAILY PO Last administered on 01/04/18 09:18; Start 01/01/18 at 09:00 Trazodone HCl (Desyrel) 200 mg HS PO Last administered on 01/03/18at 21:41; Start 12/31/17 at 21:00 Non-Formulary Medication (Albuterol Sulfate (Ventolin Hfa Inhaler)) 2 puff Q4HRS PRN INH SHORTNESS OF BREATH; Start 12/31/17 at 19:00; Status UNV Non-Formulary Medication (Alendronate Sodium (Fosamax)) 1 tab WEEKLY PO ; Start 01/07/18 at 09:00; Status UNV Atorvastatin Calcium (Lipitor) 80 mg QHS PO Last administered on 01/03/18at 21: 43; Start 12/31/17 at 21:00 Non-Formulary Medication (Fluticasone/ Salmeterol (Advair 250-50 Diskus)) 1 inh BID IH ; Start 12/31/17 at 21:00; Status UNV Insulin Human Lispro (HumaLOG) 30 units TIDWMEALS SQ Last administered on 01/02at 16:15; Start 01/01/18 at 08:00; Stop 01/03/18 at 11:52; Status DC Insulin Glargine (Lantus) 52 units BID SQ Last administered on 01/01/18at 09:21 ; Start 12/31/17 at 21:00; Stop 01/03/18 at 11:51; Status DC Venlafaxine HCl (Effexor) 50 mg TID PO Last administered on 01/04/18at 13:38; Start 01/01/18 at 09:00 Insulin Human Lispro (HumaLOG) 0-9 UNITS TIDWMEALS SQ Last administered on at 12:41; Start 12/31/17 at 20:00 Dextrose (Dextrose 50%-Water Syringe) 12.5 gm PRN Q15MIN PRN IV SEE COMMENTS Last administered on 01/02/18at 05:55; Start 12/31/17 at 19:00 Budesonide (Pulmicort) 0.5 mg RTBID NEB Last administered on 01/04/18at 07:54; Start 12/31/17 at 20:00 Albuterol Sulfate (Ventolin Neb Soln) 2.5 mg RTQID NEB ; Start 12/31/17 at 20: 00; Status UNV Albuterol Sulfate (Ventolin Neb Soln) 2.5 mg PRN Q4HRS PRN NEB SHORTNESS OF BREATH; Start 12/31/17 at 19:30 Morphine Sulfate (Morphine Sulfate) 2 mg PRN Q2HR PRN IV PAIN MILD; Start at 08:15 Acetaminophen/ Hydrocodone Bitart (Lortab 5/325) 1 tab PRN Q4HRS PRN PO PAIN Last administered on 01/04/18at 13:47; Start 01/01/18 at 08:15 Ondansetron HCl (Zofran) 4 mg PRN Q6HRS PRN IV NAUSEA/VOMITING 1ST CHOICE; Start 01/01/18 at 08:15 Ondansetron HCl (Zofran Odt) 4 mg PRN Q6HRS PRN PO NAUSEA/VOMITING 1ST CHOICE; Start 01/01/18 at 08:15 Diclofenac Sodium (Voltaren) 1 myrtle BID TP ; Start 01/01/18 at 21:00; Status UNV Polysaccharide Iron Complex (Niferex 150) 150 mg BID PO Last administered on at 09:18; Start 01/01/18 at 21:00 Cyclobenzaprine HCl (Flexeril) 10 mg PRN TID PRN PO MUSCLE SPASMS; Start 01/02 at 18:45 Cyclobenzaprine HCl (Flexeril) 10 mg TID PO Last administered on 01/04/18at 13: 38; Start 01/02/18 at 21:00 Insulin Human Lispro (HumaLOG) 10 units TIDWMEALS SQ Last administered on 01/03at 12:53; Start 01/03/18 at 12:00; Stop 01/03/18 at 14:43; Status DC Insulin Glargine (Lantus) 30 units QHS SQ ; Start 01/03/18 at 21:00; Stop at 21:00; Status DC Labetalol HCl (Normodyne Iv Push) 20 mg PRN Q2HR PRN IVP HYPERTENSION, SEE COMMENTS; Start 01/03/18 at 12:00 Ceftriaxone Sodium 2 gm/ Dextrose 100 ml @ 200 mls/hr Q24H IV Last administered on 01/03/18at 14:59; Start 01/03/18 at 14:00 Insulin Glargine (Lantus) 15 units QHS SQ Last administered on 01/03/18at 21:53 ; Start 01/03/18 at 21:00; Stop 01/04/18 at 13:27; Status DC Insulin Human Lispro (HumaLOG) 5 units TIDWMEALS SQ Last administered on at 12:42; Start 01/03/18 at 17:00; Stop 01/04/18 at 13:27; Status DC Insulin Glargine (Lantus) 30 units QHS SQ ; Start 01/04/18 at 21:00 Insulin Human Lispro (HumaLOG) 10 units TIDWMEALS SQ ; Start 01/04/18 at 17:00 Losartan Potassium (Cozaar) 100 mg DAILY PO ; Start 01/04/18 at 14:00 Active Scripts Active Furosemide 40 Mg Tablet 40 Mg PO DAILY 30 Days Amiodarone Hcl 200 Mg Tablet 100 Mg PO DAILY 30 Days Reported Metoprolol Succinate ( Xl ) (Metoprolol Succinate) 25 Mg Tab.er.24h 1 Tab PO DAILY Hydrocodone-Apap 5-325 (Hydrocodone Bit/Acetaminophen) 1 Each Tablet 1 Tab PO PRN Q6HRS PRN Voltaren (Diclofenac Sodium) 100 Gm Gel..gram. 1 Gm TP QID Potassium Chloride 10 Meq Tablet.er 10 Meq PO DAILY Ferrous Sulfate 325 Mg Tablet 325 Mg PO DAILY Gabapentin 100 Mg Capsule 100 Mg PO BID Colestipol Hcl 1 Gm Tablet 1 Gm PO DAILY Oxybutynin Chloride 5 Mg Tablet 5 Mg PO TID Lipitor (Atorvastatin Calcium) 80 Mg Tablet 80 Mg PO HS Levothyroxine Sodium 150 Mcg Tablet 1 Tab PO DAILY Isosorbide Mononitrate Er (Isosorbide Mononitrate) 30 Mg Tab.er.24h 1 Tab PO DAILY Fosamax (Alendronate Sodium) 70 Mg Tablet 1 Tab PO WEEKLY Eliquis (Apixaban) 5 Mg Tablet 5 Mg PO BID Aspir 81 (Aspirin) 81 Mg Tablet. 1 Tab PO DAILY Lantus (Insulin Glargine,Hum.rec.anlog) 100 Unit/1 Ml Vial 52 Unit SQ BID MAY INCREASE FOR BLOOD SUGARS GREATER THAN 200 FASTING Advair 250-50 Diskus (Fluticasone/Salmeterol) 1 Each Disk.w.dev 1 Inh IH BID Duoneb 0.5-3(2.5) Mg/3 Ml (Albuterol/Ipratropium) 3 Ml Ampul.neb 3 Ml IH QID Ventolin Hfa Inhaler (Albuterol Sulfate) 18 Gm Hfa.aer.ad 2 Puff INH Q4HRS PRN Venlafaxine Hcl Er (Venlafaxine Hcl) 150 Mg Cap.er.24h 150 Mg PO DAILY Novolog Flexpen (Insulin Aspart) 100 Unit/1 Ml Insuln.pen 30 Unit SQ TIDAC Vitamin D2 (Ergocalciferol (Vitamin D2)) 50,000 Unit Capsule 50,000 Unit PO TWICE WEEKLY Losartan Potassium 50 Mg Tablet 50 Mg PO DAILY Pantoprazole Sodium 40 Mg Tablet. 40 Mg PO DAILY Trazodone Hcl 100 Mg Tablet 200 Mg PO HS Vitals/I & O Vital Sign - Last 24 Hours 01/03/18 01/03/18 01/03/1829/18 14:57 15:00 17:40 19:00 Temp 98.4 97.9 98.4 97.9 Pulse 74 86 Resp 18 20 B/P (MAP) 154/55 (88) 142/59 (86) Pulse Ox 98 99 O2 Delivery Nasal Cannula Nasal Cannula Nasal Cannula Nasal Cannula O2 Flow Rate 2.5 2.5 2.5 01/03/18 01/03/18 01/04/18 01/04/18 20:00 23:00 03:10 07:00 Temp 98.6 98.6 97.9 98.6 98.6 97.9 Pulse 76 74 80 Resp 20 20 18 B/P (MAP) 147/70 (95) 153/58 (89) 185/62 (103) Pulse Ox 98 100 98 O2 Delivery Nasal Cannula Nasal Cannula Nasal Cannula Nasal Cannula O2 Flow Rate 3.0 2.5 01/04/18 01/04/18 01/04/18 01/04/18 07:56 08:30 09:19 09:20 Pulse 80 80 B/P (MAP) 185/62 185/62 Pulse Ox 98 O2 Delivery Nasal Cannula Nasal Cannula O2 Flow Rate 3.0 2.5 01/04/18 01/04/18 01/04/18 01/04/18 09:21 09:21 11:00 11:20 Temp 97.9 97.9 Pulse 80 80 84 Resp 18 B/P (MAP) 185/62 185/62 160/64 (96) Pulse Ox 97 98 O2 Delivery Nasal Cannula Nasal Cannula O2 Flow Rate 2.5 3.0 01/04/18 13:47 O2 Delivery Nasal Cannula O2 Flow Rate 3.0 Intake and Output 01/03/18 01/03/18 01/04/18 15:00 23:00 07:00 Intake Total 240 ml 1170 ml 1180 ml Balance 240 ml 1170 ml 1180 ml OLVIN LAI MD Jan 04, 2018 14:49
[2018-01-04 15:00] VITALS: BP 151/57
[2018-01-04 19:00] VITALS: BP 122/52
[2018-01-04] MEDS: traZODone 100 MG TABLET. PO SCH (21:47)
[2018-01-04] MEDS: ATORVASTATIN CALCIUM 40 MG TABLET. PO SCH (21:48)
[2018-01-04] MEDS: INSULIN GLARGINE 300 UNITS/3 ML INSULN.PEN. SQ SCH (22:02)
[2018-01-04 23:00] VITALS: BP 115/49
[2018-01-05 03:00] VITALS: BP 122/47
[2018-01-05] MEDS: PANTOPRAZOLE 40 MG TABLET.DR. PO SCH (06:03)
[2018-01-05] MEDS: LEVOTHYROXINE 150 MCG TABLET PO SCH (06:03)
[2018-01-05 06:11] LABS: BASO % 0 % (0-3); EOS % 1 % (0-3); HEMATOCRIT 22.9 % (36.0-47.0); HEMOGLOBIN 7.7 g/dL (12.0-15.5); LYMPH # 0.8 x10^3/uL (1.0-4.8); LYMPH % 9 % (24-48); MEAN CORPUSCULAR HEMOGLOBIN 31 pg (25-35); MEAN CORPUSCULAR HGB CONC 34 g/dL (31-37); MEAN CORPUSCULAR VOLUME 91 fL (79-100); MONO # 0.8 x10^3/uL (0.0-1.1); MONO % 10 % (0-9); NEUT # 6.6 x10^3uL (1.8-7.7); NEUT % 80 % (31-73); PLATELET COUNT 153 x10^3/uL (140-400); RED BLOOD COUNT 2.51 x10^6/uL (3.50-5.40); WHITE BLOOD COUNT 8.2 x10^3/uL (4.0-11.0)
[2018-01-05 06:33] LABS: CALCIUM 8.5 mg/dL (8.5-10.1); CREATININE 1.4 mg/dL (0.6-1.0); GFR 37.3; POTASSIUM 4.4 mmol/L (3.5-5.1)
[2018-01-05 07:00] VITALS: BP 168/63
[2018-01-05] MEDS: BUDESONIDE 0.5 MG/2 ML NEBU. NEB SCH ×2 (08:00→19:13)
[2018-01-05] MEDS: IPRATRPIUM/ALBUTEROL 0.5/2.5MG 3 ML NEBU. IH SCH ×4 (08:00→19:13)
[2018-01-05] MEDS: IRON POLYSACCHARIDE COMPLEX 150 MG CAPSULE PO SCH ×2 (09:00→20:39)
[2018-01-05] MEDS: INSULIN LISPRO 300 UNITS/3 ML INSULN.PEN. SQ SCH ×6 (09:12→18:35)
--- NOTE | 2018-01-05 10:02 | PDOC ---
PROGRESS NOTES Subjective Subjective No new complaints. Objective Objective Vital Signs Date Time Temp Pulse Resp B/P (MAP) Pulse Ox O2 Delivery O2 Flow Rate FiO2 01/05/18 07:00 97.9 73 18 168/63 (98) 100 Nasal Cannula 3.0 97.9 Intake and Output 01/05/18 07:00 Intake Total 360 ml Balance 360 ml Intake Oral 360 ml Physical Exam Physical Exam She is alert,sitting in bed with head end of bed elevated and she is getting up with physical therapy. She is not interested in rehab unit transfer. Assessment Assessment Problems Medical Problems: (1) UTI (urinary tract infection) Status: Acute (2) Weakness Status: Acute Plan Plan of Custodial with home health follow up when medically stable. Comment Review of Relevant I have reviewed the following items brooke (where applicable) has been applied. Labs Laboratory Tests Test 01/03/18 10:37 01/03/18 17:03 01/03/18 20:30 01/04/18 08:04 Glucose (Fingerstick) 187 mg/dL (70-99) 142 mg/dL (70-99) 163 mg/dL (70-99) 222 mg/dL (70-99) Test 01/04/18 08:06 01/04/18 11:46 01/04/18 16:17 01/04/18 20:57 White Blood Count 9.4 x10^3/uL (4.0-11.0) Red Blood Count 2.64 x10^6/uL (3.50-5.40) Hemoglobin 8.3 g/dL (12.0-15.5) Hematocrit 23.9 % (36.0-47.0) Mean Corpuscular Volume 90 fL (79-100) Mean Corpuscular Hemoglobin 31 pg (25-35) Mean Corpuscular Hemoglobin Concent 35 g/dL (31-37) Red Cell Distribution Width 15.1 % (11.5-14.5) Platelet Count 130 x10^3/uL (140-400) Neutrophils (%) (Auto) 82 % (31-73) Lymphocytes (%) (Auto) 7 % (24-48) Monocytes (%) (Auto) 10 % (0-9) Eosinophils (%) (Auto) 0 % (0-3) Basophils (%) (Auto) 0 % (0-3) Neutrophils # (Auto) 7.7 x10^3uL (1.8-7.7) Lymphocytes # (Auto) 0.7 x10^3/uL (1.0-4.8) Monocytes # (Auto) 0.9 x10^3/uL (0.0-1.1) Eosinophils # (Auto) 0.0 x10^3/uL (0.0-0.7) Basophils # (Auto) 0.0 x10^3/uL (0.0-0.2) Erythrocyte Sedimentation Rate > 140 (0-25) Sodium Level 139 mmol/L (136-145) Potassium Level 4.1 mmol/L (3.5-5.1) Chloride Level 105 mmol/L (98-107) Carbon Dioxide Level 25 mmol/L (21-32) Anion Gap 9 (6-14) Blood Urea Nitrogen 33 mg/dL (7-20) Creatinine 1.3 mg/dL (0.6-1.0) Estimated GFR (Cockcroft-Gault) 40.6 Glucose Level 216 mg/dL (70-99) Calcium Level 8.1 mg/dL (8.5-10.1) C-Reactive Protein, Quantitative 282.4 mg/L (0-3.3) Glucose (Fingerstick) 283 mg/dL (70-99) 226 mg/dL (70-99) 256 mg/dL (70-99) Test 01/05/18 04:05 01/05/18 04:06 01/05/18 07:55 Sodium Level 140 mmol/L (136-145) Potassium Level 4.4 mmol/L (3.5-5.1) Chloride Level 105 mmol/L (98-107) Carbon Dioxide Level 27 mmol/L (21-32) Anion Gap 8 (6-14) Blood Urea Nitrogen 25 mg/dL (7-20) Creatinine 1.4 mg/dL (0.6-1.0) Estimated GFR (Cockcroft-Gault) 37.3 Glucose Level 268 mg/dL (70-99) Calcium Level 8.5 mg/dL (8.5-10.1) White Blood Count 8.2 x10^3/uL (4.0-11.0) Red Blood Count 2.51 x10^6/uL (3.50-5.40) Hemoglobin 7.7 g/dL (12.0-15.5) Hematocrit 22.9 % (36.0-47.0) Mean Corpuscular Volume 91 fL (79-100) Mean Corpuscular Hemoglobin 31 pg (25-35) Mean Corpuscular Hemoglobin Concent 34 g/dL (31-37) Red Cell Distribution Width 15.0 % (11.5-14.5) Platelet Count 153 x10^3/uL (140-400) Neutrophils (%) (Auto) 80 % (31-73) Lymphocytes (%) (Auto) 9 % (24-48) Monocytes (%) (Auto) 10 % (0-9) Eosinophils (%) (Auto) 1 % (0-3) Basophils (%) (Auto) 0 % (0-3) Neutrophils # (Auto) 6.6 x10^3uL (1.8-7.7) Lymphocytes # (Auto) 0.8 x10^3/uL (1.0-4.8) Monocytes # (Auto) 0.8 x10^3/uL (0.0-1.1) Eosinophils # (Auto) 0.0 x10^3/uL (0.0-0.7) Basophils # (Auto) 0.0 x10^3/uL (0.0-0.2) Glucose (Fingerstick) 262 mg/dL (70-99) Laboratory Tests Test 01/04/18 11:46 01/04/18 16:17 01/04/18 20:57 01/05/18 04:05 Glucose (Fingerstick) 283 mg/dL (70-99) 226 mg/dL (70-99) 256 mg/dL (70-99) Sodium Level 140 mmol/L (136-145) Potassium Level 4.4 mmol/L (3.5-5.1) Chloride Level 105 mmol/L (98-107) Carbon Dioxide Level 27 mmol/L (21-32) Anion Gap 8 (6-14) Blood Urea Nitrogen 25 mg/dL (7-20) Creatinine 1.4 mg/dL (0.6-1.0) Estimated GFR (Cockcroft-Gault) 37.3 Glucose Level 268 mg/dL (70-99) Calcium Level 8.5 mg/dL (8.5-10.1) Test 01/05/18 04:06 01/05/18 07:55 White Blood Count 8.2 x10^3/uL (4.0-11.0) Red Blood Count 2.51 x10^6/uL (3.50-5.40) Hemoglobin 7.7 g/dL (12.0-15.5) Hematocrit 22.9 % (36.0-47.0) Mean Corpuscular Volume 91 fL (79-100) Mean Corpuscular Hemoglobin 31 pg (25-35) Mean Corpuscular Hemoglobin Concent 34 g/dL (31-37) Red Cell Distribution Width 15.0 % (11.5-14.5) Platelet Count 153 x10^3/uL (140-400) Neutrophils (%) (Auto) 80 % (31-73) Lymphocytes (%) (Auto) 9 % (24-48) Monocytes (%) (Auto) 10 % (0-9) Eosinophils (%) (Auto) 1 % (0-3) Basophils (%) (Auto) 0 % (0-3) Neutrophils # (Auto) 6.6 x10^3uL (1.8-7.7) Lymphocytes # (Auto) 0.8 x10^3/uL (1.0-4.8) Monocytes # (Auto) 0.8 x10^3/uL (0.0-1.1) Eosinophils # (Auto) 0.0 x10^3/uL (0.0-0.7) Basophils # (Auto) 0.0 x10^3/uL (0.0-0.2) Glucose (Fingerstick) 262 mg/dL (70-99) Microbiology 01/04/18 Blood Culture - Preliminary, Resulted NO GROWTH AFTER 1 DAY 12/30/17 Urine Culture - Final, Complete 12/30/17 Urine Culture Result 1 (DEEPTI) - Final, Complete Medications Current Medications Acetaminophen/ Hydrocodone Bitart (Lortab 5/325) 1 tab 1X ONCE PO ; Start at 22:00; Stop 12/30/17 at 22:01; Status Cancel Ceftriaxone Sodium 50 ml @ 100 mls/hr 1X ONCE IV Last administered on at 01:25; Start 12/30/17 at 23:30; Stop 12/30/17 at 23:59; Status DC Ondansetron HCl (Zofran) 4 mg PRN Q8HRS PRN IV NAUSEA/VOMITING 1ST CHOICE; Start 12/30/17 at 23:30; Stop 12/31/17 at 23:29; Status DC Morphine Sulfate (Morphine Sulfate) 2 mg PRN Q2HR PRN IV SEVERE PAIN; Start at 23:30; Stop 12/31/17 at 23:29; Status DC Acetaminophen (Tylenol) 1,000 mg 1X ONCE PO Last administered on 12/31/17at 01 :26; Start 12/31/17 at 01:30; Stop 12/31/17 at 01:31; Status DC Piperacillin Sod/ Tazobactam Sod 3.375 gm/Sodium Chloride 50 ml @ 100 mls/hr Q6HRS IV ; Start 12/31/17 at 06:00; Status UNV Levofloxacin/ Dextrose 100 ml @ 100 mls/hr 1X ONCE IV Last administered on at 03:15; Start 12/31/17 at 03:00; Stop 12/31/17 at 03:59; Status DC Piperacillin Sod/ Tazobactam Sod 2.25 gm/Sodium Chloride 50 ml @ 100 mls/hr Q8HRS IV Last administered on 01/03/18at 05:53; Start 12/31/17 at 06:00; Stop 01/03/18 at 13:11; Status DC Levofloxacin/ Dextrose 50 ml @ 50 mls/hr Q24H IV Last administered on at 04:59; Start 01/01/18 at 06:00; Stop 01/01/18 at 13:22; Status DC Sodium Chloride 1,000 ml @ 1,000 mls/hr 1X ONCE IV Last administered on 12/31at 13:00; Start 12/31/17 at 13:00; Stop 12/31/17 at 13:59; Status DC Sodium Chloride 1,000 ml @ 100 mls/hr Q10H IV Last administered on 01/04/18at 03:36; Start 12/31/17 at 12:15; Stop 01/04/18 at 13:27; Status DC Vancomycin HCl 1 gm/Sodium Chloride 250 ml @ 250 mls/hr Q24H IV ; Start at 12:15; Status UNV Insulin Human Regular 150 unit/ Sodium Chloride 151.5 ml @ 0 mls/hr CONT PRN IV SEE I/O RECORD Last administered on 12/31/17at 14:37; Start 12/31/17 at 12: 15; Stop 12/31/17 at 18:59; Status DC Amiodarone HCl (Cordarone) 100 mg DAILY PO Last administered on 01/04/18 09: 21; Start 12/31/17 at 13:00 Apixaban (Eliquis) 5 mg BID PO Last administered on 01/04/18 21:47; Start at 13:00 Aspirin (Ecotrin) 81 mg DAILY PO Last administered on 01/04/18 09:18; Start 12/31/17 at 13:00 Albuterol/ Ipratropium (Duoneb) 3 ml RTQID IH Last administered on 01/04/18 19:42; Start 12/31/17 at 13:00 Pantoprazole Sodium (Protonix) 40 mg DAILYAC PO Last administered on 06:03; Start 12/31/17 at 13:00 Info (Anti-Coagulation Monitoring By Pharmacy) 1 each PRN DAILY PRN MC SEE COMMENTS Last administered on 01/02/18 15:25; Start 12/31/17 at 12:30 Vancomycin HCl 1.75 gm/Sodium Chloride 500 ml @ 250 mls/hr 1X ONCE IV ; Start 12/31/17 at 13:00; Stop 12/31/17 at 14:59; Status Cancel Vancomycin HCl (Vanco Per Pharmacy) 1 each PRN DAILY PRN MC SEE COMMENTS Last administered on 12/31/17at 16:03; Start 12/31/17 at 12:30; Stop 01/01/18 at 13 :22; Status DC Vancomycin HCl 2 gm/Sodium Chloride 500 ml @ 250 mls/hr 1X ONCE IV Last administered on 12/31/17at 13:08; Start 12/31/17 at 13:00; Stop 12/31/17 at 14 :59; Status DC Levothyroxine Sodium (Synthroid) 150 mcg DAILY06 PO Last administered on 06:03; Start 12/31/17 at 16:30 Vancomycin HCl (Vancomycin Random Level) 1 each 1X ONCE MC Last administered on 01/01/18 14:38; Start 01/01/18 at 03:00; Stop 01/01/18 at 12:04; Status DC Lactobacillus Rhamnosus (Culturelle) 1 cap BID PO Last administered on 21:47; Start 12/31/17 at 21:00 Colestipol HCl (Colestid) 1 gm DAILY PO Last administered on 01/04/18 10:09; Start 01/01/18 at 09:00 Diclofenac Sodium (Voltaren) 1 myrtle QID TP Last administered on 01/04/18 21:46 ; Start 12/31/17 at 21:00 Ferrous Sulfate (Feosol) 325 mg DAILY PO Last administered on 01/01/18 08:59 ; Start 01/01/18 at 09:00; Stop 01/01/18 at 13:26; Status DC Furosemide (Lasix) 40 mg DAILY PO Last administered on 01/04/18 09:18; Start 01/01/18 at 09:00 Gabapentin (Neurontin) 100 mg BID PO Last administered on 01/04/18 21:48; Start 12/31/17 at 21:00 Acetaminophen/ Hydrocodone Bitart (Lortab 5/325) 1 tab PRN Q6HRS PRN PO PAIN Last administered on 12/31/17 22:23; Start 12/31/17 at 19:00; Stop 01/01/18 at 08:14; Status DC Isosorbide Mononitrate (Imdur) 30 mg DAILY PO Last administered on 01/04/18 09:19; Start 01/01/18 at 09:00 Losartan Potassium (Cozaar) 50 mg DAILY PO Last administered on 01/04/18 09: 21; Start 12/31/17 at 20:00; Stop 01/04/18 at 13:27; Status DC Metoprolol Succinate (Toprol Xl) 25 mg DAILY PO Last administered on 09:20; Start 12/31/17 at 20:00 Oxybutynin Chloride (Ditropan) 5 mg TID PO Last administered on 01/04/18 21: 50; Start 12/31/17 at 21:00 Potassium Chloride (Klor-Con) 10 meq DAILY PO Last administered on 01/04/18 09:18; Start 01/01/18 at 09:00 Trazodone HCl (Desyrel) 200 mg HS PO Last administered on 01/04/18at 21:47; Start 12/31/17 at 21:00 Non-Formulary Medication (Albuterol Sulfate (Ventolin Hfa Inhaler)) 2 puff Q4HRS PRN INH SHORTNESS OF BREATH; Start 12/31/17 at 19:00; Status UNV Non-Formulary Medication (Alendronate Sodium (Fosamax)) 1 tab WEEKLY PO ; Start 01/07/18 at 09:00; Status UNV Atorvastatin Calcium (Lipitor) 80 mg QHS PO Last administered on 01/04/18at 21: 48; Start 12/31/17 at 21:00 Non-Formulary Medication (Fluticasone/ Salmeterol (Advair 250-50 Diskus)) 1 inh BID IH ; Start 12/31/17 at 21:00; Status UNV Insulin Human Lispro (HumaLOG) 30 units TIDWMEALS SQ Last administered on 01/02at 16:15; Start 01/01/18 at 08:00; Stop 01/03/18 at 11:52; Status DC Insulin Glargine (Lantus) 52 units BID SQ Last administered on 01/01/18at 09:21 ; Start 12/31/17 at 21:00; Stop 01/03/18 at 11:51; Status DC Venlafaxine HCl (Effexor) 50 mg TID PO Last administered on 01/04/18at 21:50; Start 01/01/18 at 09:00 Insulin Human Lispro (HumaLOG) 0-9 UNITS TIDWMEALS SQ Last administered on at 09:12; Start 12/31/17 at 20:00 Dextrose (Dextrose 50%-Water Syringe) 12.5 gm PRN Q15MIN PRN IV SEE COMMENTS Last administered on 01/02/18at 05:55; Start 12/31/17 at 19:00 Budesonide (Pulmicort) 0.5 mg RTBID NEB Last administered on 01/04/18at 19:42; Start 12/31/17 at 20:00 Albuterol Sulfate (Ventolin Neb Soln) 2.5 mg RTQID NEB ; Start 12/31/17 at 20: 00; Status UNV Albuterol Sulfate (Ventolin Neb Soln) 2.5 mg PRN Q4HRS PRN NEB SHORTNESS OF BREATH; Start 12/31/17 at 19:30 Morphine Sulfate (Morphine Sulfate) 2 mg PRN Q2HR PRN IV PAIN MILD; Start at 08:15 Acetaminophen/ Hydrocodone Bitart (Lortab 5/325) 1 tab PRN Q4HRS PRN PO PAIN Last administered on 01/04/18at 13:47; Start 01/01/18 at 08:15 Ondansetron HCl (Zofran) 4 mg PRN Q6HRS PRN IV NAUSEA/VOMITING 1ST CHOICE; Start 01/01/18 at 08:15 Ondansetron HCl (Zofran Odt) 4 mg PRN Q6HRS PRN PO NAUSEA/VOMITING 1ST CHOICE; Start 01/01/18 at 08:15 Diclofenac Sodium (Voltaren) 1 myrtle BID TP ; Start 01/01/18 at 21:00; Status UNV Polysaccharide Iron Complex (Niferex 150) 150 mg BID PO Last administered on at 21:51; Start 01/01/18 at 21:00 Cyclobenzaprine HCl (Flexeril) 10 mg PRN TID PRN PO MUSCLE SPASMS; Start 01/02 at 18:45 Cyclobenzaprine HCl (Flexeril) 10 mg TID PO Last administered on 01/04/18at 21: 47; Start 01/02/18 at 21:00 Insulin Human Lispro (HumaLOG) 10 units TIDWMEALS SQ Last administered on 01/03at 12:53; Start 01/03/18 at 12:00; Stop 01/03/18 at 14:43; Status DC Insulin Glargine (Lantus) 30 units QHS SQ ; Start 01/03/18 at 21:00; Stop at 21:00; Status DC Labetalol HCl (Normodyne Iv Push) 20 mg PRN Q2HR PRN IVP HYPERTENSION, SEE COMMENTS; Start 01/03/18 at 12:00 Ceftriaxone Sodium 2 gm/ Dextrose 100 ml @ 200 mls/hr Q24H IV Last administered on 01/03/18at 14:59; Start 01/03/18 at 14:00 Insulin Glargine (Lantus) 15 units QHS SQ Last administered on 01/03/18at 21:53 ; Start 01/03/18 at 21:00; Stop 01/04/18 at 13:27; Status DC Insulin Human Lispro (HumaLOG) 5 units TIDWMEALS SQ Last administered on at 12:42; Start 01/03/18 at 17:00; Stop 01/04/18 at 13:27; Status DC Insulin Glargine (Lantus) 30 units QHS SQ Last administered on 01/04/18at 22:02 ; Start 01/04/18 at 21:00 Insulin Human Lispro (HumaLOG) 10 units TIDWMEALS SQ Last administered on 01/05at 09:13; Start 01/04/18 at 17:00 Losartan Potassium (Cozaar) 100 mg DAILY PO Last administered on 01/04/18at 15: 54; Start 01/04/18 at 14:00 Active Scripts Active Furosemide 40 Mg Tablet 40 Mg PO DAILY 30 Days Amiodarone Hcl 200 Mg Tablet 100 Mg PO DAILY 30 Days Reported Metoprolol Succinate ( Xl ) (Metoprolol Succinate) 25 Mg Tab.er.24h 1 Tab PO DAILY Hydrocodone-Apap 5-325 (Hydrocodone Bit/Acetaminophen) 1 Each Tablet 1 Tab PO PRN Q6HRS PRN Voltaren (Diclofenac Sodium) 100 Gm Gel..gram. 1 Gm TP QID Potassium Chloride 10 Meq Tablet.er 10 Meq PO DAILY Ferrous Sulfate 325 Mg Tablet 325 Mg PO DAILY Gabapentin 100 Mg Capsule 100 Mg PO BID Colestipol Hcl 1 Gm Tablet 1 Gm PO DAILY Oxybutynin Chloride 5 Mg Tablet 5 Mg PO TID Lipitor (Atorvastatin Calcium) 80 Mg Tablet 80 Mg PO HS Levothyroxine Sodium 150 Mcg Tablet 1 Tab PO DAILY Isosorbide Mononitrate Er (Isosorbide Mononitrate) 30 Mg Tab.er.24h 1 Tab PO DAILY Fosamax (Alendronate Sodium) 70 Mg Tablet 1 Tab PO WEEKLY Eliquis (Apixaban) 5 Mg Tablet 5 Mg PO BID Aspir 81 (Aspirin) 81 Mg Tablet.dr 1 Tab PO DAILY Lantus (Insulin Glargine,Hum.rec.anlog) 100 Unit/1 Ml Vial 52 Unit SQ BID MAY INCREASE FOR BLOOD SUGARS GREATER THAN 200 FASTING Advair 250-50 Diskus (Fluticasone/Salmeterol) 1 Each Disk.w.dev 1 Inh IH BID Duoneb 0.5-3(2.5) Mg/3 Ml (Albuterol/Ipratropium) 3 Ml Ampul.neb 3 Ml IH QID Ventolin Hfa Inhaler (Albuterol Sulfate) 18 Gm Hfa.aer.ad 2 Puff INH Q4HRS PRN Venlafaxine Hcl Er (Venlafaxine Hcl) 150 Mg Cap.er.24h 150 Mg PO DAILY Novolog Flexpen (Insulin Aspart) 100 Unit/1 Ml Insuln.pen 30 Unit SQ TIDAC Vitamin D2 (Ergocalciferol (Vitamin D2)) 50,000 Unit Capsule 50,000 Unit PO TWICE WEEKLY Losartan Potassium 50 Mg Tablet 50 Mg PO DAILY Pantoprazole Sodium 40 Mg Tablet.dr 40 Mg PO DAILY Trazodone Hcl 100 Mg Tablet 200 Mg PO HS Vitals/I & O Vital Sign - Last 24 Hours 01/04/18 01/04/18 01/04/18 01/04/18 11:00 11:20 13:47 14:45 Temp 97.9 97.9 Pulse 84 Resp 18 B/P (MAP) 160/64 (96) Pulse Ox 97 98 O2 Delivery Nasal Cannula Nasal Cannula Nasal Cannula Nasal Cannula O2 Flow Rate 2.5 3.0 3.0 3.0 01/04/18 01/04/18 01/04/18 01/04/18 15:00 15:08 15:54 19:00 Temp 98.1 98.4 98.1 98.4 Pulse 73 73 72 Resp 18 18 B/P (MAP) 151/57 (88) 151/57 122/52 (75) Pulse Ox 100 100 O2 Delivery Nasal Cannula Nasal Cannula Nasal Cannula O2 Flow Rate 2.5 3.0 2.5 01/04/18 01/04/18 01/04/18 01/04/18 19:45 19:46 20:00 23:00 Temp 98.4 98.4 Pulse 69 Resp 18 B/P (MAP) 115/49 (71) Pulse Ox 97 97 100 O2 Delivery Nasal Cannula Nasal Cannula Nasal Cannula Nasal Cannula O2 Flow Rate 3.5 3.5 3.0 2.5 01/05/18 01/05/18 03:00 07:00 Temp 98.4 97.9 98.4 97.9 Pulse 72 73 Resp 18 18 B/P (MAP) 122/47 (72) 168/63 (98) Pulse Ox 99 100 O2 Delivery Nasal Cannula Nasal Cannula O2 Flow Rate 2.5 3.0 Intake and Output 01/04/18 01/04/18 01/05/18 15:00 23:00 07:00 Intake Total 360 ml Balance 360 ml OLVIN LAI MD Jan 05, 2018 10:02
--- NOTE | 2018-01-05 10:17 | PDOC ---
Infectious Disease Note Subjective: Subjective Feeling better wanting to go home today Neck pain is almost resolved Denies F/C /diarrhea/n/v ROS: ROS Negative except for above. Vital Signs: Vital Signs Vital Signs Date Time Temp Pulse Resp B/P (MAP) Pulse Ox O2 Delivery O2 Flow Rate FiO2 01/05/18 07:00 97.9 73 18 168/63 (98) 100 Nasal Cannula 3.0 97.9 Physical Exam: PHYSICAL EXAM GENERAL: Resting quietly HEENT: Oral cavity, pharynx pink and dry. Edentulous NECK: Ice pack posteriorly LUNGS: Clear to auscultation. HEART: S1 and S2. ABDOMEN: Obese, soft, NT EXTREMITIES: No gross edema or cyanosis. Chronic stasis changes noted. Ice pack left ankle in place SKIN: Warm without rash. NEUROLOGIC: Alert and oriented times 3. Moves all extremities. Medications: Inpatient Meds: Current Medications Medications (Trade) Dose Ordered Sig/Kerry Start Time Stop Time Status Last Admin Dose Admin Acetaminophen (Tylenol) 1,000 mg 1X ONCE 12/31/17 01:30 12/31/17 01:31 DC 12/31/17 01:26 1,000 MG Acetaminophen/ Hydrocodone Bitart (Lortab 5/325) 1 tab PRN Q4HRS PRN 01/01/18 08:15 01/04/18 13:47 1 TAB Albuterol Sulfate (Ventolin Neb Soln) 2.5 mg PRN Q4HRS PRN 12/31/17 19:30 Albuterol/ Ipratropium (Duoneb) 3 ml RTQID 12/31/17 13:00 01/04/18 19:42 3 ML Amiodarone HCl (Cordarone) 100 mg DAILY 12/31/17 13:00 01/04/18 09:21 100 MG Apixaban (Eliquis) 5 mg BID 12/31/17 13:00 01/04/18 21:47 5 MG Aspirin (Ecotrin) 81 mg DAILY 12/31/17 13:00 01/04/18 09:18 81 MG Atorvastatin Calcium (Lipitor) 80 mg QHS 12/31/17 21:00 01/04/18 21:48 80 MG Budesonide (Pulmicort) 0.5 mg RTBID 12/31/17 20:00 10/30/18 19:42 0.5 MG Ceftriaxone Sodium 2 gm/ Dextrose 100 ml @ 200 mls/hr Q24H 01/03/18 14:00 01/03/18 14:59 200 MLS/HR Ceftriaxone Sodium 50 ml @ 100 mls/hr 1X ONCE 12/30/17 23:30 12/30/17 23:59 DC 12/31/17 01:25 100 MLS/HR Colestipol HCl (Colestid) 1 gm DAILY 01/01/18 09:00 01/04/18 10:09 1 GM Cyclobenzaprine HCl (Flexeril) 10 mg TID 01/02/18 21:00 01/04/18 21:47 10 MG Dextrose (Dextrose 50%-Water Syringe) 12.5 gm PRN Q15MIN PRN 12/31/17 19:00 01/02/18 05:55 12.5 GM Diclofenac Sodium (Voltaren) 1 myrtle BID 01/01/18 21:00 UNV Ferrous Sulfate (Feosol) 325 mg DAILY 01/01/18 09:00 01/01/18 13:26 DC 01/01/18 08:59 325 MG Furosemide (Lasix) 40 mg DAILY 01/01/18 09:00 01/04/18 09:18 40 MG Gabapentin (Neurontin) 100 mg BID 12/31/17 21:00 01/04/18 21:48 100 MG Info (Anti-Coagulation Monitoring By Pharmacy) 1 each PRN DAILY PRN 12/31/17 12:30 01/02/18 15:25 1 EACH Insulin Glargine (Lantus) 30 units QHS 01/04/18 21:00 01/04/18 22:02 30 UNITS Insulin Human Lispro (HumaLOG) 10 units TIDWMEALS 01/04/18 17:00 01/05/18 09:13 10 UNITS Insulin Human Regular 150 unit/ Sodium Chloride 151.5 ml @ 0 mls/hr CONT PRN 12/31/17 12:15 12/31/17 18:59 DC 12/31/17 14:37 6.9 MLS/HR Isosorbide Mononitrate (Imdur) 30 mg DAILY 01/01/18 09:00 01/04/18 09:19 30 MG Labetalol HCl (Normodyne Iv Push) 20 mg PRN Q2HR PRN 01/03/18 12:00 Lactobacillus Rhamnosus (Culturelle) 1 cap BID 12/31/17 21:00 01/04/18 21:47 1 CAP Levofloxacin/ Dextrose 50 ml @ 50 mls/hr Q24H 01/01/18 06:00 01/01/18 13:22 DC 01/01/18 04:59 50 MLS/HR Levothyroxine Sodium (Synthroid) 150 mcg DAILY06 12/31/17 16:30 01/05/18 06:03 150 MCG Losartan Potassium (Cozaar) 100 mg DAILY 01/04/18 14:00 01/04/18 15:54 100 MG Metoprolol Succinate (Toprol Xl) 25 mg DAILY 12/31/17 20:00 01/04/18 09:20 25 MG Morphine Sulfate (Morphine Sulfate) 2 mg PRN Q2HR PRN 01/01/18 08:15 Non-Formulary Medication (Albuterol Sulfate (Ventolin Hfa Inhaler)) 2 puff Q4HRS PRN 12/31/17 19:00 UNV Non-Formulary Medication (Alendronate Sodium (Fosamax)) 1 tab WEEKLY 01/07/18 09:00 UNV Non-Formulary Medication (Fluticasone/ Salmeterol (Advair 250-50 Diskus)) 1 inh BID 12/31/17 21:00 UNV Ondansetron HCl (Zofran Odt) 4 mg PRN Q6HRS PRN 01/01/18 08:15 Ondansetron HCl (Zofran) 4 mg PRN Q6HRS PRN 01/01/18 08:15 Oxybutynin Chloride (Ditropan) 5 mg TID 12/31/17 21:00 01/04/18 21:50 5 MG Pantoprazole Sodium (Protonix) 40 mg DAILYAC 12/31/17 13:00 01/05/18 06:03 40 MG Piperacillin Sod/ Tazobactam Sod 2.25 gm/Sodium Chloride 50 ml @ 100 mls/hr Q8HRS 12/31/17 06:00 01/03/18 13:11 DC 01/03/18 05:53 100 MLS/HR Piperacillin Sod/ Tazobactam Sod 3.375 gm/Sodium Chloride 50 ml @ 100 mls/hr Q6HRS 12/31/17 06:00 UNV Polysaccharide Iron Complex (Niferex 150) 150 mg BID 01/01/18 21:00 01/04/18 21:51 150 MG Potassium Chloride (Klor-Con) 10 meq DAILY 01/01/18 09:00 01/04/18 09:18 10 MEQ Sodium Chloride 1,000 ml @ 100 mls/hr Q10H 12/31/17 12:15 01/04/18 13:27 DC 01/04/18 03:36 100 MLS/HR Trazodone HCl (Desyrel) 200 mg HS 12/31/17 21:00 01/04/18 21:47 200 MG Vancomycin HCl (Vanco Per Pharmacy) 1 each PRN DAILY PRN 12/31/17 12:30 01/01/18 13:22 DC 12/31/17 16:03 1 EACH Vancomycin HCl (Vancomycin Random Level) 1 each 1X ONCE 01/01/18 03:00 01/01/18 12:04 DC 01/01/18 14:38 1 EACH Vancomycin HCl 1.75 gm/Sodium Chloride 500 ml @ 250 mls/hr 1X ONCE 12/31/17 13:00 12/31/17 14:59 Cancel Vancomycin HCl 1 gm/Sodium Chloride 250 ml @ 250 mls/hr Q24H 12/31/17 12:15 UNV Vancomycin HCl 2 gm/Sodium Chloride 500 ml @ 250 mls/hr 1X ONCE 12/31/17 13:00 12/31/17 14:59 DC 12/31/17 13:08 250 MLS/HR Venlafaxine HCl (Effexor) 50 mg TID 01/01/18 09:00 01/04/18 21:50 50 MG Labs: Lab Laboratory Tests Test 01/04/18 11:46 01/04/18 16:17 01/04/18 20:57 01/05/18 04:05 Glucose (Fingerstick) 283 mg/dL (70-99) 226 mg/dL (70-99) 256 mg/dL (70-99) Sodium Level 140 mmol/L (136-145) Potassium Level 4.4 mmol/L (3.5-5.1) Chloride Level 105 mmol/L (98-107) Carbon Dioxide Level 27 mmol/L (21-32) Anion Gap 8 (6-14) Blood Urea Nitrogen 25 mg/dL (7-20) Creatinine 1.4 mg/dL (0.6-1.0) Estimated GFR (Cockcroft-Gault) 37.3 Glucose Level 268 mg/dL (70-99) Calcium Level 8.5 mg/dL (8.5-10.1) Test 01/05/18 04:06 01/05/18 07:55 White Blood Count 8.2 x10^3/uL (4.0-11.0) Red Blood Count 2.51 x10^6/uL (3.50-5.40) Hemoglobin 7.7 g/dL (12.0-15.5) Hematocrit 22.9 % (36.0-47.0) Mean Corpuscular Volume 91 fL (79-100) Mean Corpuscular Hemoglobin 31 pg (25-35) Mean Corpuscular Hemoglobin Concent 34 g/dL (31-37) Red Cell Distribution Width 15.0 % (11.5-14.5) Platelet Count 153 x10^3/uL (140-400) Neutrophils (%) (Auto) 80 % (31-73) Lymphocytes (%) (Auto) 9 % (24-48) Monocytes (%) (Auto) 10 % (0-9) Eosinophils (%) (Auto) 1 % (0-3) Basophils (%) (Auto) 0 % (0-3) Neutrophils # (Auto) 6.6 x10^3uL (1.8-7.7) Lymphocytes # (Auto) 0.8 x10^3/uL (1.0-4.8) Monocytes # (Auto) 0.8 x10^3/uL (0.0-1.1) Eosinophils # (Auto) 0.0 x10^3/uL (0.0-0.7) Basophils # (Auto) 0.0 x10^3/uL (0.0-0.2) Glucose (Fingerstick) 262 mg/dL (70-99) Micro RUN DATE: 01/02/18 PAGE 1 RUN TIME: 4933 [facility] [address] [place] [address] Cuong Fabian M.D., Nursing Scheduler PATIENT: HERBERT LERNER ACCT: [id number] LOC: [address] [place] [address] U : [id number] AGE/SX: 67/F ROOM: [facility] REG : 12/30/[address]: RAMONITA GORDON MD : [id number] BED: 1 DIS : STATUS: ADM IN TLOC: SPEC #: [id number] CORNEL: 12/31/17 STATUS: COMP REQ #: [id number] RECD: 12/31/[address]: CHERYLE BARNES APRN SOURCE: BLOOD ENTR: 12/31/171158 OT DR: RAMONITA GORDON MD SPDESC: STEFANO PENA NP ORDERED: STEVE TYLER - LC Procedure Result BLOOD CULTURE LC Final Final report BLD CULT RESULT 1 Final Comment Beta hemolytic Streptococcus, group G Penicillin and ampicillin are drugs of choice for treatment of beta-hemolytic streptococcal infections. Susceptibility testing of penicillins and other beta-lactam agents approved by the FDA for treatment of beta-hemolytic streptococcal infections need not be performed routinely because nonsusceptible isolates are extremely rare in any beta-hemolytic streptococcus and have not been reported for Streptococcus pyogenes (group A). (CLSI) Performed at: DA - [facility] [address], [place], [place] [id number] Sap Pi Developer: VIOLETA Mendez MD, Phone: [phone] Objective: Assessment: Grp G streptococcus bacteremia 12/31, repeat bc neg Neck pain very high esr and crp,ct neck and head noted Lactic acidosis Pyuria (POA) - UC neg Fever - better Leukocytosis - resolved high lft s Positive MRSA nares MANDIE improving Loose stools MS pain s/p fall. neck/shoulder an left ankle pains A-fib, on amiodarone therapy DM II Hypothyroidism COPD, O2 dependent Plan: Plan of Care cont ceftriaxone when ready for dc change to Keflex 500mg po qid for 2 weeks probiotics f/u with us in 2 -3 weeks ANGELINE PEREZ MD Jan 05, 2018 10:17
[2018-01-05 11:00] VITALS: BP 165/60
[2018-01-05] MEDS: COLESTIPOL HCL 1 GM TABLET PO SCH (11:32)
[2018-01-05] MEDS: ISOSORBIDE MONONITRATE ER 30 MG TAB.ER.24H PO SCH (11:32)
[2018-01-05] MEDS: POTASSIUM CHLORIDE 10 MEQ TABLET.ER. PO SCH (11:32)
[2018-01-05] MEDS: CYCLOBENZAPRINE 10 MG TABLET. PO SCH ×3 (11:33→20:40)
[2018-01-05] MEDS: AMIODARONE HCL 200 MG TABLET. PO SCH (11:37)
[2018-01-05] MEDS ORDERED: CEPH250C PO (11:37)
[2018-01-05] MEDS ORDERED: LOSA50TA2 PO (11:37)
[2018-01-05] MEDS: METOPROLOL SUCC 24HR ER 25 MG TAB.ER.24H. PO SCH (11:38)
[2018-01-05] MEDS: FUROSEMIDE 40 MG TABLET. PO SCH (11:39)
--- NOTE | 2018-01-05 11:40 | DISCH ---
DISCHARGE WITH HOME HEALTH DISCHARGE INFORMATION: Discharge Date: Jan 05, 2018 Final Diagnosis: Problems Medical Problems: (1) UTI (urinary tract infection) Status: Acute (2) Weakness Status: Acute Condition on Discharge: Stable CODE STATUS: Code Status: Full HOME HEALTH: Face to Face: I certify this patient is under my care and that I, or a nurse practitioner or physician's payroll and benefits assistant working with me, had a face to face encounter that meets the physician face to face encounter requirements with this patient on []. Physical Therapy For: Evalulation/Treatment Occupational Therapy For: Evaluation/Treatment Home Health Aide For: Self-care POST DISCHARGE ORDERS: Activity Instructions for Disc: Activity as tolerated Weight Bearing Status after Di: As tolerated DIET AFTER DISCHARGE: ADA CHECKS AFTER DISCHARGE: Checks after discharge: Check blood press - daily, Weigh Yourself Daily FOLLOW-UP: Follow up with: PCP in 2 weeks TREATMENT/EQUIPMENT ORDERS: Adaptive Equipment Issued: None Discharge Respiratory Equipmen: Oxygen CERTIFICATION STATEMENT: Certification Statement: Certification Statement: Based on the above finding, I certify that this patient is confined to the home and needs intermittent assisted care, physical therapy and/or speech therapy, or continues to need occupational therapy.~ This patient is under my care, and I have initiated the establishment of the plan of care.~ This patient will be followed by myself or a community physician who will periodically review the plan of care. Home Meds Active Scripts Losartan Potassium (COZAAR) 50 Mg Tablet, 100 MG PO DAILY for htn for 30 Days, # 60 TAB Prov:ANNY LORA MD 01/05/18 Cephalexin (CEPHALEXIN) 250 Mg Capsule, 500 MG PO QID for bacteremia for 14 Days , #112 CAP Prov:ANNY LORA MD 01/05/18 Furosemide (FUROSEMIDE) 40 Mg Tablet, 40 MG PO DAILY for 30 Days, #30 TAB Prov:ANNY LORA MD 10/26/17 Amiodarone Hcl (AMIODARONE HCL) 200 Mg Tablet, 100 MG PO DAILY for 30 Days, #15 TAB Prov:ANNY LORA MD 10/26/17 Reported Medications Metoprolol Succinate (METOPROLOL SUCCINATE ( XL )) 25 Mg Tab.er.24h, 1 TAB PO DAILY, #30 TAB 5 Refills 12/31/17 Hydrocodone Bit/Acetaminophen (HYDROCODONE-APAP 5-325 ) 1 Each Tablet, 1 TAB PO PRN Q6HRS PRN for PAIN, TAB 0 Refills 12/31/17 Diclofenac Sodium (VOLTAREN) 100 Gm Gel..gram., 1 GM TP QID, #100 GM 2 Refills 12/31/17 Potassium Chloride (POTASSIUM CHLORIDE) 10 Meq Tablet.er, 10 MEQ PO DAILY, TAB 10/26/17 Ferrous Sulfate (FERROUS SULFATE) 325 Mg Tablet, 325 MG PO DAILY, TAB 10/24/17 Gabapentin (GABAPENTIN) 100 Mg Capsule, 100 MG PO BID, CAP 10/24/17 Colestipol Hcl (COLESTIPOL HCL) 1 Gm Tablet, 1 GM PO DAILY, TAB 10/24/17 Oxybutynin Chloride (OXYBUTYNIN CHLORIDE) 5 Mg Tablet, 5 MG PO TID, TAB 03/17/17 Atorvastatin Calcium (LIPITOR) 80 Mg Tablet, 80 MG PO HS for FOR CHOLESTEROL, # 30 TAB 0 Refills 03/17/17 Levothyroxine Sodium (LEVOTHYROXINE SODIUM) 150 Mcg Tablet, 1 TAB PO DAILY, #30 TAB 5 Refills 03/17/17 Isosorbide Mononitrate (ISOSORBIDE MONONITRATE ER) 30 Mg Tab.er.24h, 1 TAB PO DAILY, #30 TAB 5 Refills 03/17/17 Alendronate Sodium (FOSAMAX) 70 Mg Tablet, 1 TAB PO WEEKLY, #4 TAB 11 Refills 03/17/17 Apixaban (ELIQUIS) 5 Mg Tablet, 5 MG PO BID, TAB 03/17/17 Aspirin (ASPIR 81) 81 Mg Tablet.dr, 1 TAB PO DAILY, #30 TAB 5 Refills 03/17/17 Insulin Glargine,Hum.rec.anlog (LANTUS) 100 Unit/1 Ml Vial, 52 UNIT SQ BID, VIAL MAY INCREASE FOR BLOOD SUGARS GREATER THAN 200 FASTING 05/14/15 Fluticasone/Salmeterol (ADVAIR 250-50 DISKUS) 1 Each Disk.w.dev, 1 INH IH BID, INHALER 05/14/15 Ipratropium/Albuterol Sulfate (DUONEB 0.5-3(2.5) MG/3 ML) 3 Ml Ampul.neb, 3 ML IH QID 05/14/15 Albuterol Sulfate (VENTOLIN HFA INHALER) 18 Gm Hfa.aer.ad, 2 PUFF INH Q4HRS PRN for SHORTNESS OF BREATH, INHALER 0 Refills 05/14/15 Venlafaxine Hcl (VENLAFAXINE HCL ER) 150 Mg Cap.er.24h, 150 MG PO DAILY, CAP.SR 05/14/15 Insulin Aspart (NOVOLOG FLEXPEN) 100 Unit/1 Ml Insuln.pen, 30 UNIT SQ TIDAC, SYR 05/14/15 Ergocalciferol (Vitamin D2) (VITAMIN D2) 50,000 Unit Capsule, 67405 UNIT PO TWICE WEEKLY 05/14/15 Pantoprazole Sodium (PANTOPRAZOLE SODIUM) 40 Mg Tablet.dr, 40 MG PO DAILY, TAB 05/14/15 Trazodone Hcl (TRAZODONE HCL) 100 Mg Tablet, 200 MG PO HS, TAB 05/14/15 Discontinued Reported Medications Losartan Potassium (LOSARTAN POTASSIUM) 50 Mg Tablet, 50 MG PO DAILY, TAB 05/14/15 ANNY LORA MD Jan 05, 2018 11:40
[2018-01-05] MEDS: APIXABAN 5 MG TABLET. PO SCH ×2 (11:41→20:39)
[2018-01-05] MEDS: GABAPENTIN 100 MG CAPSULE. PO SCH ×2 (11:41→20:40)
[2018-01-05] MEDS: LACTOBACILLUS RHAMNOSUS GG 1 CAPSULE. PO SCH ×2 (11:41→20:40)
[2018-01-05] MEDS: ASPIRIN ENTERIC COATED 81 MG TABLET.DR. PO SCH (11:44)
[2018-01-05] MEDS: LOSARTAN POTASSIUM 50 MG TABLET. PO SCH (11:47)
[2018-01-05] MEDS: VENLAFAXINE 50 MG TABLET. PO SCH ×3 (11:50→20:39)
[2018-01-05] MEDS: OXYBUTYNIN CHLORIDE 5 MG TABLET PO SCH ×3 (11:50→20:39)
[2018-01-05] MEDS: DICLOFENAC SODIUM 1% TOPICAL GEL 100GM TUBE. TP SCH ×4 (12:03→21:21)
[2018-01-05] MEDS: CEPHALEXIN 250 MG CAPSULE. PO SCH ×3 (13:00→20:40)
--- NOTE | 2018-01-05 13:25 | PDOC3 ---
Discharge Summary [facility] Date of Admission: Dec 30, 2017 Discharge Date: Jan 05, 2018 Admitting Diagnosis generalized weakness bacteremia MSSA Sepsis no organ dysfcn BAck, neck pain wo fx LEft ankle sprain from recent fal - no fx Generalized weakness-HH on dc BMI 48, overweight Dm2 ON Insulin copd Pafib on elqiuis sylvie, VAsomotor HTN Final Diagnosis CONSULTS id genny Brief Hospital Course Ms. Sylvester is a 67 old F, loving alone, came for weakness, could not stand or walk well, was fund + MSSA bacteremia. she also fell at home, has neck pain, ct neg for fx. pt was treated with IV ceftrixone now, ucx not significant, repeated bcx neg. ok to dc home with keflex for another 2 weeks as per ID. RTOT recommend rehab, however, pt refused to go . said her daughter may check her sometime. dc time 35min. GENERAL: Resting quietly HEENT: Oral cavity, pharynx pink and dry. Edentulous NECK: Ice pack posteriorly LUNGS: Clear to auscultation. HEART: S1 and S2. ABDOMEN: Obese, soft, NT EXTREMITIES: No gross edema or cyanosis. Chronic stasis changes noted. Ice pack left ankle in place SKIN: Warm without rash. NEUROLOGIC: Alert and oriented times 3. Moves all extremities. Patient History: FH: colon cancer 32 MOTHER FH: dementia 33 FATHER Family history: Cardiovascular disease (situation) 33 FATHER Family history: Diabetes mellitus (situation) 33 FATHER Family history: Hypertension (situation) 33 FATHER Disposition home health CONDITION AT DISCHARGE: Improved Scheduled Alendronate Sodium (Fosamax), 1 TAB PO WEEKLY, (Reported) Amiodarone Hcl (Amiodarone Hcl), 100 MG PO DAILY Apixaban (Eliquis), 5 MG PO BID, (Reported) Aspirin (Aspir 81), 1 TAB PO DAILY, (Reported) Atorvastatin Calcium (Lipitor), 80 MG PO HS, (Reported) Cephalexin (Cephalexin), 500 MG PO QID Colestipol Hcl (Colestipol Hcl), 1 GM PO DAILY, (Reported) Diclofenac Sodium (Voltaren), 1 GM TP QID, (Reported) Ergocalciferol (Vitamin D2) (Vitamin D2), 50,000 UNIT PO TWICE WEEKLY, (Reported ) Ferrous Sulfate (Ferrous Sulfate), 325 MG PO DAILY, (Reported) Fluticasone/Salmeterol (Advair 250-50 Diskus), 1 INH IH BID, (Reported) Furosemide (Furosemide), 40 MG PO DAILY Gabapentin (Gabapentin), 100 MG PO BID, (Reported) Insulin Aspart (Novolog Flexpen), 30 UNIT SQ TIDAC, (Reported) Insulin Glargine,Hum.rec.anlog (Lantus), 52 UNIT SQ BID, (Reported) Ipratropium/Albuterol Sulfate (Duoneb 0.5-3(2.5) Mg/3 Ml), 3 ML IH QID, ( Reported) Isosorbide Mononitrate (Isosorbide Mononitrate Er), 1 TAB PO DAILY, (Reported) Levothyroxine Sodium (Levothyroxine Sodium), 1 TAB PO DAILY, (Reported) Losartan Potassium (Cozaar), 100 MG PO DAILY Metoprolol Succinate (Metoprolol Succinate ( Xl )), 1 TAB PO DAILY, (Reported) Oxybutynin Chloride (Oxybutynin Chloride), 5 MG PO TID, (Reported) Pantoprazole Sodium (Pantoprazole Sodium), 40 MG PO DAILY, (Reported) Potassium Chloride (Potassium Chloride), 10 MEQ PO DAILY, (Reported) Trazodone Hcl (Trazodone Hcl), 200 MG PO HS, (Reported) Venlafaxine Hcl (Venlafaxine Hcl Er), 150 MG PO DAILY, (Reported) Scheduled PRN Albuterol Sulfate (Ventolin Hfa Inhaler), 2 PUFF INH Q4HRS PRN for SHORTNESS OF BREATH, (Reported) Hydrocodone Bit/Acetaminophen (Hydrocodone-Apap 5-325 ), 1 TAB PO PRN Q6HRS PRN for PAIN, (Reported) Discontinued Medications Losartan Potassium (Losartan Potassium), 50 MG PO DAILY, (Reported) ANNY LORA MD Jan 05, 2018 13:25
[2018-01-05] MEDS: ANTI-COAG MONITOR BY PHARMACY. MC PRN (14:11)
[2018-01-05 15:00] VITALS: BP 160/65
[2018-01-05 19:00] VITALS: BP 152/64
[2018-01-05] MEDS: ATORVASTATIN CALCIUM 40 MG TABLET. PO SCH (20:39)
[2018-01-05] MEDS: traZODone 100 MG TABLET. PO SCH (20:39)
[2018-01-05] MEDS: HYDROcodone/APAP 5/325MG 1 TAB TABLET PO PRN (21:21)
[2018-01-05] MEDS: INSULIN GLARGINE 300 UNITS/3 ML INSULN.PEN. SQ SCH (21:26)
[2018-01-05 23:00] VITALS: BP 144/63
[2018-01-06 03:00] VITALS: BP 138/54
[2018-01-06] MEDS: LEVOTHYROXINE 150 MCG TABLET PO SCH (05:52)
[2018-01-06] MEDS: HYDROcodone/APAP 5/325MG 1 TAB TABLET PO PRN ×3 (05:52→16:02)
[2018-01-06 07:00] VITALS: BP 173/50
[2018-01-06] MEDS: IPRATRPIUM/ALBUTEROL 0.5/2.5MG 3 ML NEBU. IH SCH ×2 (08:00→12:00)
[2018-01-06] MEDS: BUDESONIDE 0.5 MG/2 ML NEBU. NEB SCH (08:00)
--- NOTE | 2018-01-06 08:15 | PDOC ---
PROGRESS NOTES Chief Complaint Chief Complaint UTI, bacteremia MSSA Sepsis no organ dysfcn BAck, neck pain LEft ankle sprain from recent fal - no fx Generalized weakness-HH on dc BMI 48, overweight Dm2 ON Insulin copd Pafib on elqiuis mandie, VAsomotor HTN MANDIE, vasomotor plan: fu with id switch zosyn to ceftriaxone now increase insulin to 30u lantus qhs, aspart 10u tid, ssi cont eliquis, amiodarone, metoprolol, increase losartan to 100mg daily PTOT, FU WITH Dr. Bree durant for possible rehab, but pt refuse SNF History of Present Illness History of Present Illness Admitted with MSSA uti and bacteremia with ankle sprain and acute renal failure 2/2 vasomotor nephropathy, seen by PMR, ID. able to d/c home with [facility] ROS: nO chills, sob or chest pain T 101.3 01/03, now afebirle c/o neck pain after fall at home, CT cervical neg for fx. left arm, hand swelling high BP cr better to 1.3 UTI, bacteremia MSSA Sepsis no organ dysfcn BAck, neck pain LEft ankle sprain from recent fal - no fx Generalized weakness-HH on dc BMI 48, overweight Dm2 ON Insulin copd Pafib on elqiuis mandie, VAsomotor HTN MANDIE, vasomotor plan: fu with id switch zosyn to ceftriaxone now, oral on d/c - Keflex increase insulin to 30u lantus qhs, aspart 10u tid, ssi cont eliquis, amiodarone, metoprolol, increase losartan to 100mg daily PTOT, FU WITH Dr. Bree durant for possible rehab, but pt refuse SNF Vitals Vitals Vital Signs Date Time Temp Pulse Resp B/P (MAP) Pulse Ox O2 Delivery O2 Flow Rate FiO2 01/06/18 03:00 97.7 77 18 138/54 (82) 95 Nasal Cannula 3.0 97.7 Physical Exam Physical Exam GENERAL: Resting quietly HEENT: Oral cavity, pharynx pink and dry. Edentulous NECK: Ice pack posteriorly LUNGS: Clear to auscultation. HEART: S1 and S2. ABDOMEN: Obese, soft, NT EXTREMITIES: No gross edema or cyanosis. Chronic stasis changes noted. Ice pack left ankle in place SKIN: Warm without rash. NEUROLOGIC: Alert and oriented times 3. Moves all extremities. General: Alert, Oriented X3, Cooperative Heart: Regular rate, Normal S1, Normal S2 Lungs: Clear, Other Abdomen: Normal bowel sounds, Soft Extremities: Other (left ankle scar/tenderness, pain on palpation) Skin: No rashes, No breakdown, No significant lesion Labs LABS Laboratory Tests Test 01/05/18 11:57 01/05/18 16:43 01/05/18 20:56 01/06/18 07:33 Glucose (Fingerstick) 200 mg/dL (70-99) 131 mg/dL (70-99) 177 mg/dL (70-99) 153 mg/dL (70-99) Assessment and Plan Assessmemt and Plan Problems Medical Problems: (1) UTI (urinary tract infection) Status: Acute (2) Weakness Status: Acute Comment Review of Relevant I have reviewed the following items brooke (where applicable) has been applied. Labs Laboratory Tests Test 01/04/18 11:46 01/04/18 16:17 01/04/18 20:57 01/05/18 04:05 Glucose (Fingerstick) 283 mg/dL (70-99) 226 mg/dL (70-99) 256 mg/dL (70-99) Sodium Level 140 mmol/L (136-145) Potassium Level 4.4 mmol/L (3.5-5.1) Chloride Level 105 mmol/L (98-107) Carbon Dioxide Level 27 mmol/L (21-32) Anion Gap 8 (6-14) Blood Urea Nitrogen 25 mg/dL (7-20) Creatinine 1.4 mg/dL (0.6-1.0) Estimated GFR (Cockcroft-Gault) 37.3 Glucose Level 268 mg/dL (70-99) Calcium Level 8.5 mg/dL (8.5-10.1) Test 01/05/18 04:06 01/05/18 07:55 01/05/18 11:57 01/05/18 16:43 White Blood Count 8.2 x10^3/uL (4.0-11.0) Red Blood Count 2.51 x10^6/uL (3.50-5.40) Hemoglobin 7.7 g/dL (12.0-15.5) Hematocrit 22.9 % (36.0-47.0) Mean Corpuscular Volume 91 fL (79-100) Mean Corpuscular Hemoglobin 31 pg (25-35) Mean Corpuscular Hemoglobin Concent 34 g/dL (31-37) Red Cell Distribution Width 15.0 % (11.5-14.5) Platelet Count 153 x10^3/uL (140-400) Neutrophils (%) (Auto) 80 % (31-73) Lymphocytes (%) (Auto) 9 % (24-48) Monocytes (%) (Auto) 10 % (0-9) Eosinophils (%) (Auto) 1 % (0-3) Basophils (%) (Auto) 0 % (0-3) Neutrophils # (Auto) 6.6 x10^3uL (1.8-7.7) Lymphocytes # (Auto) 0.8 x10^3/uL (1.0-4.8) Monocytes # (Auto) 0.8 x10^3/uL (0.0-1.1) Eosinophils # (Auto) 0.0 x10^3/uL (0.0-0.7) Basophils # (Auto) 0.0 x10^3/uL (0.0-0.2) Glucose (Fingerstick) 262 mg/dL (70-99) 200 mg/dL (70-99) 131 mg/dL (70-99) Test 01/05/18 20:56 01/06/18 07:33 Glucose (Fingerstick) 177 mg/dL (70-99) 153 mg/dL (70-99) Laboratory Tests Test 01/05/18 11:57 01/05/18 16:43 01/05/18 20:56 01/06/18 07:33 Glucose (Fingerstick) 200 mg/dL (70-99) 131 mg/dL (70-99) 177 mg/dL (70-99) 153 mg/dL (70-99) Microbiology 01/04/18 Blood Culture - Preliminary, Resulted NO GROWTH AFTER 1 DAY 12/30/17 Urine Culture - Final, Complete 12/30/17 Urine Culture Result 1 (DEEPTI) - Final, Complete Medications Current Medications Acetaminophen/ Hydrocodone Bitart (Lortab 5/325) 1 tab 1X ONCE PO ; Start at 22:00; Stop 12/30/17 at 22:01; Status Cancel Ceftriaxone Sodium 50 ml @ 100 mls/hr 1X ONCE IV Last administered on at 01:25; Start 12/30/17 at 23:30; Stop 12/30/17 at 23:59; Status DC Ondansetron HCl (Zofran) 4 mg PRN Q8HRS PRN IV NAUSEA/VOMITING 1ST CHOICE; Start 12/30/17 at 23:30; Stop 12/31/17 at 23:29; Status DC Morphine Sulfate (Morphine Sulfate) 2 mg PRN Q2HR PRN IV SEVERE PAIN; Start at 23:30; Stop 12/31/17 at 23:29; Status DC Acetaminophen (Tylenol) 1,000 mg 1X ONCE PO Last administered on 12/31/17at 01 :26; Start 12/31/17 at 01:30; Stop 12/31/17 at 01:31; Status DC Piperacillin Sod/ Tazobactam Sod 3.375 gm/Sodium Chloride 50 ml @ 100 mls/hr Q6HRS IV ; Start 12/31/17 at 06:00; Status UNV Levofloxacin/ Dextrose 100 ml @ 100 mls/hr 1X ONCE IV Last administered on at 03:15; Start 12/31/17 at 03:00; Stop 12/31/17 at 03:59; Status DC Piperacillin Sod/ Tazobactam Sod 2.25 gm/Sodium Chloride 50 ml @ 100 mls/hr Q8HRS IV Last administered on 01/03/18at 05:53; Start 12/31/17 at 06:00; Stop 01/03/18 at 13:11; Status DC Levofloxacin/ Dextrose 50 ml @ 50 mls/hr Q24H IV Last administered on at 04:59; Start 01/01/18 at 06:00; Stop 01/01/18 at 13:22; Status DC Sodium Chloride 1,000 ml @ 1,000 mls/hr 1X ONCE IV Last administered on 12/31at 13:00; Start 12/31/17 at 13:00; Stop 12/31/17 at 13:59; Status DC Sodium Chloride 1,000 ml @ 100 mls/hr Q10H IV Last administered on 01/04/18at 03:36; Start 12/31/17 at 12:15; Stop 01/04/18 at 13:27; Status DC Vancomycin HCl 1 gm/Sodium Chloride 250 ml @ 250 mls/hr Q24H IV ; Start at 12:15; Status UNV Insulin Human Regular 150 unit/ Sodium Chloride 151.5 ml @ 0 mls/hr CONT PRN IV SEE I/O RECORD Last administered on 12/31/17at 14:37; Start 12/31/17 at 12: 15; Stop 12/31/17 at 18:59; Status DC Amiodarone HCl (Cordarone) 100 mg DAILY PO Last administered on 01/05/18at 11: 37; Start 12/31/17 at 13:00 Apixaban (Eliquis) 5 mg BID PO Last administered on 01/05/18at 20:39; Start at 13:00 Aspirin (Ecotrin) 81 mg DAILY PO Last administered on 01/05/18at 11:44; Start 12/31/17 at 13:00 Albuterol/ Ipratropium (Duoneb) 3 ml RTQID IH Last administered on 01/05/18at 19:13; Start 12/31/17 at 13:00 Pantoprazole Sodium (Protonix) 40 mg DAILYAC PO Last administered on at 06:03; Start 12/31/17 at 13:00 Info (Anti-Coagulation Monitoring By Pharmacy) 1 each PRN DAILY PRN MC SEE COMMENTS Last administered on 01/05/18at 14:11; Start 12/31/17 at 12:30 Vancomycin HCl 1.75 gm/Sodium Chloride 500 ml @ 250 mls/hr 1X ONCE IV ; Start 12/31/17 at 13:00; Stop 12/31/17 at 14:59; Status Cancel Vancomycin HCl (Vanco Per Pharmacy) 1 each PRN DAILY PRN MC SEE COMMENTS Last administered on 12/31/17at 16:03; Start 12/31/17 at 12:30; Stop 01/01/18 at 13 :22; Status DC Vancomycin HCl 2 gm/Sodium Chloride 500 ml @ 250 mls/hr 1X ONCE IV Last administered on 12/31/17at 13:08; Start 12/31/17 at 13:00; Stop 12/31/17 at 14 :59; Status DC Levothyroxine Sodium (Synthroid) 150 mcg DAILY06 PO Last administered on at 05:52; Start 12/31/17 at 16:30 Vancomycin HCl (Vancomycin Random Level) 1 each 1X ONCE MC Last administered on 01/01/18at 14:38; Start 01/01/18 at 03:00; Stop 01/01/18 at 12:04; Status DC Lactobacillus Rhamnosus (Culturelle) 1 cap BID PO Last administered on at 20:40; Start 12/31/17 at 21:00 Colestipol HCl (Colestid) 1 gm DAILY PO Last administered on 01/05/18 11:32; Start 01/01/18 at 09:00 Diclofenac Sodium (Voltaren) 1 myrtle QID TP Last administered on 01/05/18 21:21 ; Start 12/31/17 at 21:00 Ferrous Sulfate (Feosol) 325 mg DAILY PO Last administered on 01/01/18at 08:59 ; Start 01/01/18 at 09:00; Stop 01/01/18 at 13:26; Status DC Furosemide (Lasix) 40 mg DAILY PO Last administered on 01/05/18at 11:39; Start 01/01/18 at 09:00 Gabapentin (Neurontin) 100 mg BID PO Last administered on 01/05/18at 20:40; Start 12/31/17 at 21:00 Acetaminophen/ Hydrocodone Bitart (Lortab 5/325) 1 tab PRN Q6HRS PRN PO PAIN Last administered on 12/31/17at 22:23; Start 12/31/17 at 19:00; Stop 01/01/18 at 08:14; Status DC Isosorbide Mononitrate (Imdur) 30 mg DAILY PO Last administered on 01/05/18at 11:32; Start 01/01/18 at 09:00 Losartan Potassium (Cozaar) 50 mg DAILY PO Last administered on 01/04/18at 09: 21; Start 12/31/17 at 20:00; Stop 01/04/18 at 13:27; Status DC Metoprolol Succinate (Toprol Xl) 25 mg DAILY PO Last administered on at 11:38; Start 12/31/17 at 20:00 Oxybutynin Chloride (Ditropan) 5 mg TID PO Last administered on 01/05/18 20: 39; Start 12/31/17 at 21:00 Potassium Chloride (Klor-Con) 10 meq DAILY PO Last administered on 01/05/18 11:32; Start 01/01/18 at 09:00 Trazodone HCl (Desyrel) 200 mg HS PO Last administered on 01/05/18 20:39; Start 12/31/17 at 21:00 Non-Formulary Medication (Albuterol Sulfate (Ventolin Hfa Inhaler)) 2 puff Q4HRS PRN INH SHORTNESS OF BREATH; Start 12/31/17 at 19:00; Status UNV Non-Formulary Medication (Alendronate Sodium (Fosamax)) 1 tab WEEKLY PO ; Start 01/07/18 at 09:00; Status UNV Atorvastatin Calcium (Lipitor) 80 mg QHS PO Last administered on 01/05/18 20: 39; Start 12/31/17 at 21:00 Non-Formulary Medication (Fluticasone/ Salmeterol (Advair 250-50 Diskus)) 1 inh BID IH ; Start 12/31/17 at 21:00; Status UNV Insulin Human Lispro (HumaLOG) 30 units TIDWMEALS SQ Last administered on 01/02 16:15; Start 01/01/18 at 08:00; Stop 01/03/18 at 11:52; Status DC Insulin Glargine (Lantus) 52 units BID SQ Last administered on 01/01/18at 09:21 ; Start 12/31/17 at 21:00; Stop 01/03/18 at 11:51; Status DC Venlafaxine HCl (Effexor) 50 mg TID PO Last administered on 01/05/18 20:39; Start 01/01/18 at 09:00 Insulin Human Lispro (HumaLOG) 0-9 UNITS TIDWMEALS SQ Last administered on 12:13; Start 12/31/17 at 20:00 Dextrose (Dextrose 50%-Water Syringe) 12.5 gm PRN Q15MIN PRN IV SEE COMMENTS Last administered on 01/02/18at 05:55; Start 12/31/17 at 19:00 Budesonide (Pulmicort) 0.5 mg RTBID NEB Last administered on 01/05/18at 19:13; Start 12/31/17 at 20:00 Albuterol Sulfate (Ventolin Neb Soln) 2.5 mg RTQID NEB ; Start 12/31/17 at 20: 00; Status UNV Albuterol Sulfate (Ventolin Neb Soln) 2.5 mg PRN Q4HRS PRN NEB SHORTNESS OF BREATH; Start 12/31/17 at 19:30 Morphine Sulfate (Morphine Sulfate) 2 mg PRN Q2HR PRN IV PAIN MILD; Start at 08:15 Acetaminophen/ Hydrocodone Bitart (Lortab 5/325) 1 tab PRN Q4HRS PRN PO PAIN Last administered on 01/06/18at 05:52; Start 01/01/18 at 08:15 Ondansetron HCl (Zofran) 4 mg PRN Q6HRS PRN IV NAUSEA/VOMITING 1ST CHOICE; Start 01/01/18 at 08:15 Ondansetron HCl (Zofran Odt) 4 mg PRN Q6HRS PRN PO NAUSEA/VOMITING 1ST CHOICE; Start 01/01/18 at 08:15 Diclofenac Sodium (Voltaren) 1 myrtle BID TP ; Start 01/01/18 at 21:00; Status UNV Polysaccharide Iron Complex (Niferex 150) 150 mg BID PO Last administered on at 20:39; Start 01/01/18 at 21:00 Cyclobenzaprine HCl (Flexeril) 10 mg PRN TID PRN PO MUSCLE SPASMS; Start 01/02 at 18:45 Cyclobenzaprine HCl (Flexeril) 10 mg TID PO Last administered on 01/05/18at 20: 40; Start 01/02/18 at 21:00 Insulin Human Lispro (HumaLOG) 10 units TIDWMEALS SQ Last administered on 01/03at 12:53; Start 01/03/18 at 12:00; Stop 01/03/18 at 14:43; Status DC Insulin Glargine (Lantus) 30 units QHS SQ ; Start 01/03/18 at 21:00; Stop at 21:00; Status DC Labetalol HCl (Normodyne Iv Push) 20 mg PRN Q2HR PRN IVP HYPERTENSION, SEE COMMENTS; Start 01/03/18 at 12:00 Ceftriaxone Sodium 2 gm/ Dextrose 100 ml @ 200 mls/hr Q24H IV Last administered on 01/03/18at 14:59; Start 01/03/18 at 14:00; Stop 01/05/18 at 11 :30; Status DC Insulin Glargine (Lantus) 15 units QHS SQ Last administered on 01/03/18at 21:53 ; Start 01/03/18 at 21:00; Stop 01/04/18 at 13:27; Status DC Insulin Human Lispro (HumaLOG) 5 units TIDWMEALS SQ Last administered on at 12:42; Start 01/03/18 at 17:00; Stop 01/04/18 at 13:27; Status DC Insulin Glargine (Lantus) 30 units QHS SQ Last administered on 01/05/18at 21:26 ; Start 01/04/18 at 21:00 Insulin Human Lispro (HumaLOG) 10 units TIDWMEALS SQ Last administered on 01/05at 18:35; Start 01/04/18 at 17:00 Losartan Potassium (Cozaar) 100 mg DAILY PO Last administered on 01/05/18at 11: 47; Start 01/04/18 at 14:00 Cephalexin HCl (Keflex) 500 mg QID PO Last administered on 01/05/18at 20:40; Start 01/05/18 at 13:00 Active Scripts Active Cozaar (Losartan Potassium) 50 Mg Tablet 100 Mg PO DAILY 30 Days Cephalexin 250 Mg Capsule 500 Mg PO QID 14 Days Furosemide 40 Mg Tablet 40 Mg PO DAILY 30 Days Amiodarone Hcl 200 Mg Tablet 100 Mg PO DAILY 30 Days Reported Metoprolol Succinate ( Xl ) (Metoprolol Succinate) 25 Mg Tab.er.24h 1 Tab PO DAILY Hydrocodone-Apap 5-325 (Hydrocodone Bit/Acetaminophen) 1 Each Tablet 1 Tab PO PRN Q6HRS PRN Voltaren (Diclofenac Sodium) 100 Gm Gel..gram. 1 Gm TP QID Potassium Chloride 10 Meq Tablet.er 10 Meq PO DAILY Ferrous Sulfate 325 Mg Tablet 325 Mg PO DAILY Gabapentin 100 Mg Capsule 100 Mg PO BID Colestipol Hcl 1 Gm Tablet 1 Gm PO DAILY Oxybutynin Chloride 5 Mg Tablet 5 Mg PO TID Lipitor (Atorvastatin Calcium) 80 Mg Tablet 80 Mg PO HS Levothyroxine Sodium 150 Mcg Tablet 1 Tab PO DAILY Isosorbide Mononitrate Er (Isosorbide Mononitrate) 30 Mg Tab.er.24h 1 Tab PO DAILY Fosamax (Alendronate Sodium) 70 Mg Tablet 1 Tab PO WEEKLY Eliquis (Apixaban) 5 Mg Tablet 5 Mg PO BID Aspir 81 (Aspirin) 81 Mg Tablet.dr 1 Tab PO DAILY Lantus (Insulin Glargine,Hum.rec.anlog) 100 Unit/1 Ml Vial 52 Unit SQ BID MAY INCREASE FOR BLOOD SUGARS GREATER THAN 200 FASTING Advair 250-50 Diskus (Fluticasone/Salmeterol) 1 Each Disk.w.dev 1 Inh IH BID Duoneb 0.5-3(2.5) Mg/3 Ml (Albuterol/Ipratropium) 3 Ml Ampul.neb 3 Ml IH QID Ventolin Hfa Inhaler (Albuterol Sulfate) 18 Gm Hfa.aer.ad 2 Puff INH Q4HRS PRN Venlafaxine Hcl Er (Venlafaxine Hcl) 150 Mg Cap.er.24h 150 Mg PO DAILY Novolog Flexpen (Insulin Aspart) 100 Unit/1 Ml Insuln.pen 30 Unit SQ TIDAC Vitamin D2 (Ergocalciferol (Vitamin D2)) 50,000 Unit Capsule 50,000 Unit PO TWICE WEEKLY Pantoprazole Sodium 40 Mg Tablet. 40 Mg PO DAILY Trazodone Hcl 100 Mg Tablet 200 Mg PO HS Vitals/I & O Vital Sign - Last 24 Hours 01/05/18 01/05/18 01/05/18 01/05/18 11:00 11:32 11:37 11:38 Temp 97.9 97.9 Pulse 78 73 73 73 Resp 18 B/P (MAP) 165/60 (95) 168/63 168/63 168/63 Pulse Ox 100 O2 Delivery Nasal Cannula O2 Flow Rate 3.0 01/05/18 01/05/18 01/05/18 01/05/18 11:47 15:00 19:00 19:14 Temp 97.9 97.7 97.9 97.7 Pulse 73 81 83 Resp 18 20 B/P (MAP) 168/63 160/65 (96) 152/64 (93) Pulse Ox 100 98 100 O2 Delivery Nasal Cannula Room Air Nasal Cannula O2 Flow Rate 3.0 3.0 01/05/18 01/05/18 01/05/18 01/06/18 19:16 20:00 23:00 03:00 Temp 97.7 97.7 97.7 97.7 Pulse 80 77 Resp 18 18 B/P (MAP) 144/63 (90) 138/54 (82) Pulse Ox 100 100 95 O2 Delivery Nasal Cannula Nasal Cannula Nasal Cannula Nasal Cannula O2 Flow Rate 3.0 3.0 3.0 3.0 Intake and Output 01/05/18 01/05/18 01/06/18 15:00 23:00 07:00 Intake Total 180 ml 0 ml Balance 180 ml 0 ml KAREN MARIA MD Jan 06, 2018 08:15
[2018-01-06 08:59] LABS: BASO % 0 % (0-3); EOS # 0.1 x10^3/uL (0.0-0.7); EOS % 1 % (0-3); HEMATOCRIT 23.7 % (36.0-47.0); LYMPH # 0.9 x10^3/uL (1.0-4.8); LYMPH % 14 % (24-48); MEAN CORPUSCULAR HEMOGLOBIN 30 pg (25-35); MEAN CORPUSCULAR HGB CONC 34 g/dL (31-37); MEAN CORPUSCULAR VOLUME 91 fL (79-100); MONO # 0.7 x10^3/uL (0.0-1.1); MONO % 10 % (0-9); NEUT # 4.9 x10^3uL (1.8-7.7); NEUT % 74 % (31-73); PLATELET COUNT 211 x10^3/uL (140-400); RED BLOOD COUNT 2.62 x10^6/uL (3.50-5.40); RED CELL DISTRIBUTION WIDTH 14.8 % (11.5-14.5); WHITE BLOOD COUNT 6.6 x10^3/uL (4.0-11.0)
[2018-01-06 09:22] LABS: CALCIUM 9.2 mg/dL (8.5-10.1); CREATININE 1.2 mg/dL (0.6-1.0); GFR 44.5; POTASSIUM 4.3 mmol/L (3.5-5.1)
[2018-01-06] MEDS: VENLAFAXINE 50 MG TABLET. PO SCH ×2 (09:26→15:53)
[2018-01-06] MEDS: COLESTIPOL HCL 1 GM TABLET PO SCH (09:27)
[2018-01-06] MEDS: PANTOPRAZOLE 40 MG TABLET.DR. PO SCH (09:27)
[2018-01-06] MEDS: FUROSEMIDE 40 MG TABLET. PO SCH (09:27)
[2018-01-06] MEDS: ASPIRIN ENTERIC COATED 81 MG TABLET.DR. PO SCH (09:27)
[2018-01-06] MEDS: APIXABAN 5 MG TABLET. PO SCH (09:28)
[2018-01-06] MEDS: AMIODARONE HCL 200 MG TABLET. PO SCH (09:29)
[2018-01-06] MEDS: LOSARTAN POTASSIUM 50 MG TABLET. PO SCH (09:30)
[2018-01-06] MEDS: IRON POLYSACCHARIDE COMPLEX 150 MG CAPSULE PO SCH (09:30)
[2018-01-06] MEDS: LACTOBACILLUS RHAMNOSUS GG 1 CAPSULE. PO SCH (09:30)
[2018-01-06] MEDS: POTASSIUM CHLORIDE 10 MEQ TABLET.ER. PO SCH (09:30)
[2018-01-06] MEDS: OXYBUTYNIN CHLORIDE 5 MG TABLET PO SCH ×2 (09:31→15:53)
[2018-01-06] MEDS: ISOSORBIDE MONONITRATE ER 30 MG TAB.ER.24H PO SCH (09:31)
[2018-01-06] MEDS: GABAPENTIN 100 MG CAPSULE. PO SCH (09:31)
[2018-01-06] MEDS: CYCLOBENZAPRINE 10 MG TABLET. PO SCH ×2 (09:31→15:53)
[2018-01-06] MEDS: DICLOFENAC SODIUM 1% TOPICAL GEL 100GM TUBE. TP SCH ×2 (09:32→13:00)
[2018-01-06] MEDS: METOPROLOL SUCC 24HR ER 25 MG TAB.ER.24H. PO SCH (09:32)
[2018-01-06] MEDS: INSULIN LISPRO 300 UNITS/3 ML INSULN.PEN. SQ SCH ×4 (10:10→11:59)
--- NOTE | 2018-01-06 10:35 | PDOC ---
PROGRESS NOTES Subjective Subjective No new complaints. Objective Objective Vital Signs Date Time Temp Pulse Resp B/P (MAP) Pulse Ox O2 Delivery O2 Flow Rate FiO2 01/06/18 09:32 72 173/50 01/06/18 07:00 98.6 18 99 Nasal Cannula 98.6 01/06/18 03:00 3.0 Intake and Output 01/06/18 07:00 Intake Total 180 ml Balance 180 ml Intake Oral 180 ml # Voids 5 Physical Exam Physical Exam She is sitting up in bed with head end of bed propped up and she is getting up with therapy and she is moving her neck with less pain. Assessment Assessment Problems Medical Problems: (1) UTI (urinary tract infection) Status: Acute (2) Weakness Status: Acute Plan Plan of Care To continue present physical and occupational therapy follow up as tolerated. Comment Review of Relevant I have reviewed the following items brooke (where applicable) has been applied. Labs Laboratory Tests Test 01/04/18 11:46 01/04/18 16:17 01/04/18 20:57 01/05/18 04:05 Glucose (Fingerstick) 283 mg/dL (70-99) 226 mg/dL (70-99) 256 mg/dL (70-99) Sodium Level 140 mmol/L (136-145) Potassium Level 4.4 mmol/L (3.5-5.1) Chloride Level 105 mmol/L (98-107) Carbon Dioxide Level 27 mmol/L (21-32) Anion Gap 8 (6-14) Blood Urea Nitrogen 25 mg/dL (7-20) Creatinine 1.4 mg/dL (0.6-1.0) Estimated GFR (Cockcroft-Gault) 37.3 Glucose Level 268 mg/dL (70-99) Calcium Level 8.5 mg/dL (8.5-10.1) Test 01/05/18 04:06 01/05/18 07:55 01/05/18 11:57 01/05/18 16:43 White Blood Count 8.2 x10^3/uL (4.0-11.0) Red Blood Count 2.51 x10^6/uL (3.50-5.40) Hemoglobin 7.7 g/dL (12.0-15.5) Hematocrit 22.9 % (36.0-47.0) Mean Corpuscular Volume 91 fL (79-100) Mean Corpuscular Hemoglobin 31 pg (25-35) Mean Corpuscular Hemoglobin Concent 34 g/dL (31-37) Red Cell Distribution Width 15.0 % (11.5-14.5) Platelet Count 153 x10^3/uL (140-400) Neutrophils (%) (Auto) 80 % (31-73) Lymphocytes (%) (Auto) 9 % (24-48) Monocytes (%) (Auto) 10 % (0-9) Eosinophils (%) (Auto) 1 % (0-3) Basophils (%) (Auto) 0 % (0-3) Neutrophils # (Auto) 6.6 x10^3uL (1.8-7.7) Lymphocytes # (Auto) 0.8 x10^3/uL (1.0-4.8) Monocytes # (Auto) 0.8 x10^3/uL (0.0-1.1) Eosinophils # (Auto) 0.0 x10^3/uL (0.0-0.7) Basophils # (Auto) 0.0 x10^3/uL (0.0-0.2) Glucose (Fingerstick) 262 mg/dL (70-99) 200 mg/dL (70-99) 131 mg/dL (70-99) Test 01/05/18 20:56 01/06/18 07:33 01/06/18 08:45 Glucose (Fingerstick) 177 mg/dL (70-99) 153 mg/dL (70-99) White Blood Count 6.6 x10^3/uL (4.0-11.0) Red Blood Count 2.62 x10^6/uL (3.50-5.40) Hemoglobin 8.0 g/dL (12.0-15.5) Hematocrit 23.7 % (36.0-47.0) Mean Corpuscular Volume 91 fL (79-100) Mean Corpuscular Hemoglobin 30 pg (25-35) Mean Corpuscular Hemoglobin Concent 34 g/dL (31-37) Red Cell Distribution Width 14.8 % (11.5-14.5) Platelet Count 211 x10^3/uL (140-400) Neutrophils (%) (Auto) 74 % (31-73) Lymphocytes (%) (Auto) 14 % (24-48) Monocytes (%) (Auto) 10 % (0-9) Eosinophils (%) (Auto) 1 % (0-3) Basophils (%) (Auto) 0 % (0-3) Neutrophils # (Auto) 4.9 x10^3uL (1.8-7.7) Lymphocytes # (Auto) 0.9 x10^3/uL (1.0-4.8) Monocytes # (Auto) 0.7 x10^3/uL (0.0-1.1) Eosinophils # (Auto) 0.1 x10^3/uL (0.0-0.7) Basophils # (Auto) 0.0 x10^3/uL (0.0-0.2) Sodium Level 142 mmol/L (136-145) Potassium Level 4.3 mmol/L (3.5-5.1) Chloride Level 105 mmol/L (98-107) Carbon Dioxide Level 31 mmol/L (21-32) Anion Gap 6 (6-14) Blood Urea Nitrogen 21 mg/dL (7-20) Creatinine 1.2 mg/dL (0.6-1.0) Estimated GFR (Cockcroft-Gault) 44.5 Glucose Level 165 mg/dL (70-99) Calcium Level 9.2 mg/dL (8.5-10.1) Laboratory Tests Test 01/05/18 11:57 01/05/18 16:43 01/05/18 20:56 01/06/18 07:33 Glucose (Fingerstick) 200 mg/dL (70-99) 131 mg/dL (70-99) 177 mg/dL (70-99) 153 mg/dL (70-99) Test 01/06/18 08:45 White Blood Count 6.6 x10^3/uL (4.0-11.0) Red Blood Count 2.62 x10^6/uL (3.50-5.40) Hemoglobin 8.0 g/dL (12.0-15.5) Hematocrit 23.7 % (36.0-47.0) Mean Corpuscular Volume 91 fL (79-100) Mean Corpuscular Hemoglobin 30 pg (25-35) Mean Corpuscular Hemoglobin Concent 34 g/dL (31-37) Red Cell Distribution Width 14.8 % (11.5-14.5) Platelet Count 211 x10^3/uL (140-400) Neutrophils (%) (Auto) 74 % (31-73) Lymphocytes (%) (Auto) 14 % (24-48) Monocytes (%) (Auto) 10 % (0-9) Eosinophils (%) (Auto) 1 % (0-3) Basophils (%) (Auto) 0 % (0-3) Neutrophils # (Auto) 4.9 x10^3uL (1.8-7.7) Lymphocytes # (Auto) 0.9 x10^3/uL (1.0-4.8) Monocytes # (Auto) 0.7 x10^3/uL (0.0-1.1) Eosinophils # (Auto) 0.1 x10^3/uL (0.0-0.7) Basophils # (Auto) 0.0 x10^3/uL (0.0-0.2) Sodium Level 142 mmol/L (136-145) Potassium Level 4.3 mmol/L (3.5-5.1) Chloride Level 105 mmol/L (98-107) Carbon Dioxide Level 31 mmol/L (21-32) Anion Gap 6 (6-14) Blood Urea Nitrogen 21 mg/dL (7-20) Creatinine 1.2 mg/dL (0.6-1.0) Estimated GFR (Cockcroft-Gault) 44.5 Glucose Level 165 mg/dL (70-99) Calcium Level 9.2 mg/dL (8.5-10.1) Microbiology 01/04/18 Blood Culture - Preliminary, Resulted NO GROWTH AFTER 2 DAYS 12/30/17 Urine Culture - Final, Complete 12/30/17 Urine Culture Result 1 (DEEPTI) - Final, Complete Medications Current Medications Acetaminophen/ Hydrocodone Bitart (Lortab 5/325) 1 tab 1X ONCE PO ; Start at 22:00; Stop 12/30/17 at 22:01; Status Cancel Ceftriaxone Sodium 50 ml @ 100 mls/hr 1X ONCE IV Last administered on at 01:25; Start 12/30/17 at 23:30; Stop 12/30/17 at 23:59; Status DC Ondansetron HCl (Zofran) 4 mg PRN Q8HRS PRN IV NAUSEA/VOMITING 1ST CHOICE; Start 12/30/17 at 23:30; Stop 12/31/17 at 23:29; Status DC Morphine Sulfate (Morphine Sulfate) 2 mg PRN Q2HR PRN IV SEVERE PAIN; Start at 23:30; Stop 12/31/17 at 23:29; Status DC Acetaminophen (Tylenol) 1,000 mg 1X ONCE PO Last administered on 12/31/17at 01 :26; Start 12/31/17 at 01:30; Stop 12/31/17 at 01:31; Status DC Piperacillin Sod/ Tazobactam Sod 3.375 gm/Sodium Chloride 50 ml @ 100 mls/hr Q6HRS IV ; Start 12/31/17 at 06:00; Status UNV Levofloxacin/ Dextrose 100 ml @ 100 mls/hr 1X ONCE IV Last administered on at 03:15; Start 12/31/17 at 03:00; Stop 12/31/17 at 03:59; Status DC Piperacillin Sod/ Tazobactam Sod 2.25 gm/Sodium Chloride 50 ml @ 100 mls/hr Q8HRS IV Last administered on 01/03/18at 05:53; Start 12/31/17 at 06:00; Stop 01/03/18 at 13:11; Status DC Levofloxacin/ Dextrose 50 ml @ 50 mls/hr Q24H IV Last administered on at 04:59; Start 01/01/18 at 06:00; Stop 01/01/18 at 13:22; Status DC Sodium Chloride 1,000 ml @ 1,000 mls/hr 1X ONCE IV Last administered on 12/31at 13:00; Start 12/31/17 at 13:00; Stop 12/31/17 at 13:59; Status DC Sodium Chloride 1,000 ml @ 100 mls/hr Q10H IV Last administered on 01/04/18at 03:36; Start 12/31/17 at 12:15; Stop 01/04/18 at 13:27; Status DC Vancomycin HCl 1 gm/Sodium Chloride 250 ml @ 250 mls/hr Q24H IV ; Start at 12:15; Status UNV Insulin Human Regular 150 unit/ Sodium Chloride 151.5 ml @ 0 mls/hr CONT PRN IV SEE I/O RECORD Last administered on 12/31/17at 14:37; Start 12/31/17 at 12: 15; Stop 12/31/17 at 18:59; Status DC Amiodarone HCl (Cordarone) 100 mg DAILY PO Last administered on 01/06/18at 09:29 ; Start 12/31/17 at 13:00 Apixaban (Eliquis) 5 mg BID PO Last administered on 01/06/18 09:28; Start at 13:00 Aspirin (Ecotrin) 81 mg DAILY PO Last administered on 01/06/18 09:27; Start 12/31/17 at 13:00 Albuterol/ Ipratropium (Duoneb) 3 ml RTQID IH Last administered on 01/05/18at 19:13; Start 12/31/17 at 13:00 Pantoprazole Sodium (Protonix) 40 mg DAILYAC PO Last administered on 01/06/18 09:27; Start 12/31/17 at 13:00 Info (Anti-Coagulation Monitoring By Pharmacy) 1 each PRN DAILY PRN MC SEE COMMENTS Last administered on 01/05/18at 14:11; Start 12/31/17 at 12:30 Vancomycin HCl 1.75 gm/Sodium Chloride 500 ml @ 250 mls/hr 1X ONCE IV ; Start 12/31/17 at 13:00; Stop 12/31/17 at 14:59; Status Cancel Vancomycin HCl (Vanco Per Pharmacy) 1 each PRN DAILY PRN MC SEE COMMENTS Last administered on 12/31/17at 16:03; Start 12/31/17 at 12:30; Stop 01/01/18 at 13 :22; Status DC Vancomycin HCl 2 gm/Sodium Chloride 500 ml @ 250 mls/hr 1X ONCE IV Last administered on 12/31/17at 13:08; Start 12/31/17 at 13:00; Stop 12/31/17 at 14 :59; Status DC Levothyroxine Sodium (Synthroid) 150 mcg DAILY06 PO Last administered on at 05:52; Start 12/31/17 at 16:30 Vancomycin HCl (Vancomycin Random Level) 1 each 1X ONCE MC Last administered on 01/01/18at 14:38; Start 01/01/18 at 03:00; Stop 01/01/18 at 12:04; Status DC Lactobacillus Rhamnosus (Culturelle) 1 cap BID PO Last administered on 09:30; Start 12/31/17 at 21:00 Colestipol HCl (Colestid) 1 gm DAILY PO Last administered on 01/06/18 09:27; Start 01/01/18 at 09:00 Diclofenac Sodium (Voltaren) 1 myrtle QID TP Last administered on 01/06/18 09:32 ; Start 12/31/17 at 21:00 Ferrous Sulfate (Feosol) 325 mg DAILY PO Last administered on 01/01/18 08:59 ; Start 01/01/18 at 09:00; Stop 01/01/18 at 13:26; Status DC Furosemide (Lasix) 40 mg DAILY PO Last administered on 01/06/18 09:27; Start 01/01/18 at 09:00 Gabapentin (Neurontin) 100 mg BID PO Last administered on 01/06/18 09:31; Start 12/31/17 at 21:00 Acetaminophen/ Hydrocodone Bitart (Lortab 5/325) 1 tab PRN Q6HRS PRN PO PAIN Last administered on 12/31/17 22:23; Start 12/31/17 at 19:00; Stop 01/01/18 at 08:14; Status DC Isosorbide Mononitrate (Imdur) 30 mg DAILY PO Last administered on 01/06/18 09 :31; Start 01/01/18 at 09:00 Losartan Potassium (Cozaar) 50 mg DAILY PO Last administered on 01/04/18at 09: 21; Start 12/31/17 at 20:00; Stop 01/04/18 at 13:27; Status DC Metoprolol Succinate (Toprol Xl) 25 mg DAILY PO Last administered on 01/06/18 09:32; Start 12/31/17 at 20:00 Oxybutynin Chloride (Ditropan) 5 mg TID PO Last administered on 01/06/18 09:31 ; Start 12/31/17 at 21:00 Potassium Chloride (Klor-Con) 10 meq DAILY PO Last administered on 01/06/18 09 :30; Start 01/01/18 at 09:00 Trazodone HCl (Desyrel) 200 mg HS PO Last administered on 01/05/18at 20:39; Start 12/31/17 at 21:00 Non-Formulary Medication (Albuterol Sulfate (Ventolin Hfa Inhaler)) 2 puff Q4HRS PRN INH SHORTNESS OF BREATH; Start 12/31/17 at 19:00; Status UNV Non-Formulary Medication (Alendronate Sodium (Fosamax)) 1 tab WEEKLY PO ; Start 01/07/18 at 09:00; Status UNV Atorvastatin Calcium (Lipitor) 80 mg QHS PO Last administered on 01/05/18at 20: 39; Start 12/31/17 at 21:00 Non-Formulary Medication (Fluticasone/ Salmeterol (Advair 250-50 Diskus)) 1 inh BID IH ; Start 12/31/17 at 21:00; Status UNV Insulin Human Lispro (HumaLOG) 30 units TIDWMEALS SQ Last administered on 01/02at 16:15; Start 01/01/18 at 08:00; Stop 01/03/18 at 11:52; Status DC Insulin Glargine (Lantus) 52 units BID SQ Last administered on 01/01/18at 09:21 ; Start 12/31/17 at 21:00; Stop 01/03/18 at 11:51; Status DC Venlafaxine HCl (Effexor) 50 mg TID PO Last administered on 01/06/18at 09:26; Start 01/01/18 at 09:00 Insulin Human Lispro (HumaLOG) 0-9 UNITS TIDWMEALS SQ Last administered on 01/06at 10:10; Start 12/31/17 at 20:00 Dextrose (Dextrose 50%-Water Syringe) 12.5 gm PRN Q15MIN PRN IV SEE COMMENTS Last administered on 01/02/18at 05:55; Start 12/31/17 at 19:00 Budesonide (Pulmicort) 0.5 mg RTBID NEB Last administered on 01/05/18at 19:13; Start 12/31/17 at 20:00 Albuterol Sulfate (Ventolin Neb Soln) 2.5 mg RTQID NEB ; Start 12/31/17 at 20: 00; Status UNV Albuterol Sulfate (Ventolin Neb Soln) 2.5 mg PRN Q4HRS PRN NEB SHORTNESS OF BREATH; Start 12/31/17 at 19:30 Morphine Sulfate (Morphine Sulfate) 2 mg PRN Q2HR PRN IV PAIN MILD; Start at 08:15 Acetaminophen/ Hydrocodone Bitart (Lortab 5/325) 1 tab PRN Q4HRS PRN PO PAIN Last administered on 01/06/18at 05:52; Start 01/01/18 at 08:15 Ondansetron HCl (Zofran) 4 mg PRN Q6HRS PRN IV NAUSEA/VOMITING 1ST CHOICE; Start 01/01/18 at 08:15 Ondansetron HCl (Zofran Odt) 4 mg PRN Q6HRS PRN PO NAUSEA/VOMITING 1ST CHOICE; Start 01/01/18 at 08:15 Diclofenac Sodium (Voltaren) 1 myrtle BID TP ; Start 01/01/18 at 21:00; Status UNV Polysaccharide Iron Complex (Niferex 150) 150 mg BID PO Last administered on at 09:30; Start 01/01/18 at 21:00 Cyclobenzaprine HCl (Flexeril) 10 mg PRN TID PRN PO MUSCLE SPASMS; Start 01/02 at 18:45 Cyclobenzaprine HCl (Flexeril) 10 mg TID PO Last administered on 01/06/18at 09: 31; Start 01/02/18 at 21:00 Insulin Human Lispro (HumaLOG) 10 units TIDWMEALS SQ Last administered on 01/03at 12:53; Start 01/03/18 at 12:00; Stop 01/03/18 at 14:43; Status DC Insulin Glargine (Lantus) 30 units QHS SQ ; Start 01/03/18 at 21:00; Stop at 21:00; Status DC Labetalol HCl (Normodyne Iv Push) 20 mg PRN Q2HR PRN IVP HYPERTENSION, SEE COMMENTS; Start 01/03/18 at 12:00 Ceftriaxone Sodium 2 gm/ Dextrose 100 ml @ 200 mls/hr Q24H IV Last administered on 01/03/18at 14:59; Start 01/03/18 at 14:00; Stop 01/05/18 at 11 :30; Status DC Insulin Glargine (Lantus) 15 units QHS SQ Last administered on 01/03/18at 21:53 ; Start 01/03/18 at 21:00; Stop 01/04/18 at 13:27; Status DC Insulin Human Lispro (HumaLOG) 5 units TIDWMEALS SQ Last administered on at 12:42; Start 01/03/18 at 17:00; Stop 01/04/18 at 13:27; Status DC Insulin Glargine (Lantus) 30 units QHS SQ Last administered on 01/05/18at 21:26 ; Start 01/04/18 at 21:00 Insulin Human Lispro (HumaLOG) 10 units TIDWMEALS SQ Last administered on at 10:10; Start 01/04/18 at 17:00 Losartan Potassium (Cozaar) 100 mg DAILY PO Last administered on 01/06/18at 09: 30; Start 01/04/18 at 14:00 Cephalexin HCl (Keflex) 500 mg QID PO Last administered on 01/05/18at 20:40; Start 01/05/18 at 13:00 Active Scripts Active Cozaar (Losartan Potassium) 50 Mg Tablet 100 Mg PO DAILY 30 Days Cephalexin 250 Mg Capsule 500 Mg PO QID 14 Days Furosemide 40 Mg Tablet 40 Mg PO DAILY 30 Days Amiodarone Hcl 200 Mg Tablet 100 Mg PO DAILY 30 Days Reported Metoprolol Succinate ( Xl ) (Metoprolol Succinate) 25 Mg Tab.er.24h 1 Tab PO DAILY Hydrocodone-Apap 5-325 (Hydrocodone Bit/Acetaminophen) 1 Each Tablet 1 Tab PO PRN Q6HRS PRN Voltaren (Diclofenac Sodium) 100 Gm Gel..gram. 1 Gm TP QID Potassium Chloride 10 Meq Tablet.er 10 Meq PO DAILY Ferrous Sulfate 325 Mg Tablet 325 Mg PO DAILY Gabapentin 100 Mg Capsule 100 Mg PO BID Colestipol Hcl 1 Gm Tablet 1 Gm PO DAILY Oxybutynin Chloride 5 Mg Tablet 5 Mg PO TID Lipitor (Atorvastatin Calcium) 80 Mg Tablet 80 Mg PO HS Levothyroxine Sodium 150 Mcg Tablet 1 Tab PO DAILY Isosorbide Mononitrate Er (Isosorbide Mononitrate) 30 Mg Tab.er.24h 1 Tab PO DAILY Fosamax (Alendronate Sodium) 70 Mg Tablet 1 Tab PO WEEKLY Eliquis (Apixaban) 5 Mg Tablet 5 Mg PO BID Aspir 81 (Aspirin) 81 Mg Tablet.dr 1 Tab PO DAILY Lantus (Insulin Glargine,Hum.rec.anlog) 100 Unit/1 Ml Vial 52 Unit SQ BID MAY INCREASE FOR BLOOD SUGARS GREATER THAN 200 FASTING Advair 250-50 Diskus (Fluticasone/Salmeterol) 1 Each Disk.w.dev 1 Inh IH BID Duoneb 0.5-3(2.5) Mg/3 Ml (Albuterol/Ipratropium) 3 Ml Ampul.neb 3 Ml IH QID Ventolin Hfa Inhaler (Albuterol Sulfate) 18 Gm Hfa.aer.ad 2 Puff INH Q4HRS PRN Venlafaxine Hcl Er (Venlafaxine Hcl) 150 Mg Cap.er.24h 150 Mg PO DAILY Novolog Flexpen (Insulin Aspart) 100 Unit/1 Ml Insuln.pen 30 Unit SQ TIDAC Vitamin D2 (Ergocalciferol (Vitamin D2)) 50,000 Unit Capsule 50,000 Unit PO TWICE WEEKLY Pantoprazole Sodium 40 Mg Tablet. 40 Mg PO DAILY Trazodone Hcl 100 Mg Tablet 200 Mg PO HS Vitals/I & O Vital Sign - Last 24 Hours 01/05/18 01/05/18 01/05/18 01/05/18 11:00 11:32 11:37 11:38 Temp 97.9 97.9 Pulse 78 73 73 73 Resp 18 B/P (MAP) 165/60 (95) 168/63 168/63 168/63 Pulse Ox 100 O2 Delivery Nasal Cannula O2 Flow Rate 3.0 01/05/18 01/05/18 01/05/18 01/05/18 11:47 15:00 19:00 19:14 Temp 97.9 97.7 97.9 97.7 Pulse 73 81 83 Resp 18 20 B/P (MAP) 168/63 160/65 (96) 152/64 (93) Pulse Ox 100 98 100 O2 Delivery Nasal Cannula Room Air Nasal Cannula O2 Flow Rate 3.0 3.0 01/05/18 01/05/18 01/05/18 01/06/18 19:16 20:00 23:00 03:00 Temp 97.7 97.7 97.7 97.7 Pulse 80 77 Resp 18 18 B/P (MAP) 144/63 (90) 138/54 (82) Pulse Ox 100 100 95 O2 Delivery Nasal Cannula Nasal Cannula Nasal Cannula Nasal Cannula O2 Flow Rate 3.0 3.0 3.0 3.0 01/06/18 01/06/18 01/06/18 01/06/18 07:00 09:29 09:30 09:31 Temp 98.6 98.6 Pulse 72 72 72 72 Resp 18 B/P (MAP) 173/50 (91) 173/50 173/50 173/50 Pulse Ox 99 O2 Delivery Nasal Cannula 01/06/18 09:32 Pulse 72 B/P (MAP) 173/50 Intake and Output 01/05/18 01/05/18 01/06/18 15:00 23:00 07:00 Intake Total 180 ml 0 ml Balance 180 ml 0 ml OLVIN LAI MD Jan 06, 2018 10:35
[2018-01-06 11:00] VITALS: BP 151/53
[2018-01-06] MEDS: CEPHALEXIN 250 MG CAPSULE. PO SCH ×2 (11:47→15:53)
[2018-01-06 15:00] VITALS: BP 153/52
[2018-01-06] MEDS: ANTI-COAG MONITOR BY PHARMACY. MC PRN (18:04)
[2018-01-07] MEDS ORDERED: NON FORMULARY ITEM (Alendronate Sodium (Fosamax) 1 TAB) PO SCH (09:00)
== END 2018-01-06 17:50 | disposition home health service (06) | DRG 871 ==
LOC: ER 21:03 → 5 NORTH 23:25
PROVIDERS: ADMIT Family Medicine; ATTEND Family Medicine
DX: A40.8 Other streptococcal sepsis (principal); J18.9 Pneumonia, unspecified organism; N17.0 Acute kidney failure with tubular necrosis; J44.0 Chronic obstructive pulmonary disease with (acute) lower respiratory infection; N39.0 Urinary tract infection, site not specified; D68.59 Other primary thrombophilia; Z68.42 Body mass index [BMI] 45.0-49.9, adult; G89.29 Other chronic pain; E11.22 Type 2 diabetes mellitus with diabetic chronic kidney disease; E11.42 Type 2 diabetes mellitus with diabetic polyneuropathy; D63.8 Anemia in other chronic diseases classified elsewhere; B95.5 Unspecified streptococcus as the cause of diseases classified elsewhere; F03.90 Unspecified dementia, unspecified severity, without behavioral disturbance, psychotic disturbance, mood disturbance, and anxiety; E03.9 Hypothyroidism, unspecified; E66.9 Obesity, unspecified; E78.5 Hyperlipidemia, unspecified; E78.00 Pure hypercholesterolemia, unspecified; I12.9 Hypertensive chronic kidney disease with stage 1 through stage 4 chronic kidney disease, or unspecified chronic kidney disease; I48.91 Unspecified atrial fibrillation; I25.10 Atherosclerotic heart disease of native coronary artery without angina pectoris; K21.9 Gastro-esophageal reflux disease without esophagitis; N18.9 Chronic kidney disease, unspecified; S93.402A Sprain of unspecified ligament of left ankle, initial encounter; M17.0 Bilateral primary osteoarthritis of knee; M47.812 Spondylosis without myelopathy or radiculopathy, cervical region; W01.0XXA Fall on same level from slipping, tripping and stumbling without subsequent striking against object, initial encounter; R65.20 Severe sepsis without septic shock; Z90.710 Acquired absence of both cervix and uterus; I25.2 Old myocardial infarction; Z86.14 Personal history of Methicillin resistant Staphylococcus aureus infection; Z85.038 Personal history of other malignant neoplasm of large intestine; Z90.49 Acquired absence of other specified parts of digestive tract; Z85.3 Personal history of malignant neoplasm of breast; Z83.3 Family history of diabetes mellitus; Z82.49 Family history of ischemic heart disease and other diseases of the circulatory system; Z80.0 Family history of malignant neoplasm of digestive organs; Z79.4 Long term (current) use of insulin; Z87.891 Personal history of nicotine dependence; Y93.89 Activity, other specified; Y92.098 Other place in other non-institutional residence as the place of occurrence of the external cause; Y99.8 Other external cause status; Z92.21 Personal history of antineoplastic chemotherapy; Z92.3 Personal history of irradiation; Z95.5 Presence of coronary angioplasty implant and graft; Z99.81 Dependence on supplemental oxygen; Z79.899 Other long term (current) drug therapy; B95.61 Methicillin susceptible Staphylococcus aureus infection as the cause of diseases classified elsewhere
CPT/HCPCS: 36415; 70450; 71045; 72125; 73600; 80048; 80053; 80202; 81001; 82553; 82962; 83605; 83690; 83735; 83880; 84484; 85007; 85025; 85610; 85651; 86140; 87040; 87086; 87186; 87205; 87641; 93005; 93971; 94640; 94760; 96374; J0690; J0696; J1815; J1956; J2543; J3370; J7030; J7040; J7042; J7620; J7626; 99285-25

== ENCOUNTER 2018-11-30 11:05 | Inpatient (IN) | payer OTHER ==
[2018-11-30] VITALS (11 sets, daily range): BP systolic 79–154; BP diastolic 41–70
[~2018-11-30] VITALS: Ht 165.1 cm; Wt 82.3 kg
[~2018-11-30 11:05] MED LIST changes: +AMLO10TA8 PO; +CEPH250C PO; +CLON1PAT6 TD; +HYDR-2761 PO; +HYDR-2869 PO; +INSU100I11 SQ; +LOSA-73 PO; +LOSA100T14 PO; -LOSA100T7 PO; -LOSA50TA2 PO; -LOSA50TA7 PO; -NITR0.4T SL; +NITR0.4T24 SL; +OXYB5TAB10 PO; -OXYB5TAB7 PO; -PANT40TA5 PO; +PANT40TA77 PO; +POLY17PO28 PO; -POLY17PO3 PO; +SENN-161 PO; -SENN1TAB8 PO
[2018-11-30] MEDS ORDERED: IV NORMAL SALINE 1000ML BAG 1,000 ML IV SCH (11:10)
--- NOTE | 2018-11-30 11:27 | PHYS DOC ---
Past Medical History Past Medical History: A-Fib, Diabetes-Type II, High Cholesterol, Hypertension, Hypothyroid, MS Additional Past Medical Histor: CELLULITIS, PANCYTOPENIA Past Surgical History: Cholecystectomy, Hysterectomy, Other Additional Past Surgical Histo: STENTSx2 Alcohol Use: None Drug Use: None Adult General HPI HPI Patient is a 68-year-old female, with a history of diabetes, COPD, paroxysmal atrial fibrillation, and numerous other medical problems, who presents to the emergency department after being found at home by her family unresponsive. It is unclear when her last known normal was, she had an unknown down time. EMS was providing bag assisted ventilation upon arrival in the emergency department. The patient was having spontaneous respirations but was unresponsive and was intubated without the use of medications in the emergency department. She had vomited prior to arrival, with emesis on her clothing, and her pharynx was suctioned prior to intubation. There was evidence of aspiration, with emesis material initially being refluxed into the endotracheal tube. I have requested that RT suction the patient via her endotracheal tube. EMS reported a blood glucose of over 400. I'll axis was obtained prehospital. Patient did have a pulse per EMS and has a pulse upon arrival in the emergency department. Her skin appears sallow. no other history is available at this time. Review of Systems Review of Systems Unable to obtain review of systems, secondary to patient unresponsiveness. Current Medications Current Medications Current Medications Medications (Trade) Dose Ordered Sig/Kerry Start Time Stop Time Status Last Admin Dose Admin Etomidate (Amidate) 20 mg STK-MED ONCE 11/30/18 11:28 11/30/18 11:29 DC Insulin Human Regular 150 ml @ 0 mls/hr 1X ONCE 11/30/18 12:30 11/30/18 12:33 DC 11/30/18 13:41 10.7 MLS/HR Midazolam HCl (Versed) 2 mg 1X ONCE 11/30/18 11:45 11/30/18 11:46 DC 11/30/18 11:51 2 MG Norepinephrine Bitartrate 250 ml @ 14.884 mls/ hr 1X ONCE 11/30/18 13:15 12/01/18 06:02 11/30/18 13:44 14.884 MLS/HR Piperacillin Sod/ Tazobactam Sod 3.375 gm/Sodium Chloride 50 ml @ 100 mls/hr 1X ONCE 11/30/18 12:00 11/30/18 12:29 DC 11/30/18 12:14 100 MLS/HR Sodium Chloride 1,000 ml @ 1,000 mls/hr 1X ONCE 11/30/18 13:15 11/30/18 14:14 DC Succinylcholine Chloride (Anectine) 200 mg STK-MED ONCE 11/30/18 11:28 11/30/18 11:29 DC Vancomycin HCl 250 ml @ 250 mls/hr 1X ONCE 11/30/18 11:45 11/30/18 12:44 DC 11/30/18 12:01 250 MLS/HR Allergies Allergies Allergies Coded Allergies Type Severity Reaction Last Updated Verified No Known Medication Allergies Allergy Unknown 10/25/17 Yes Physical Exam Physical Exam PHYSICAL EXAM: CONSTITUTIONAL: Well developed, well nourished HEAD: normocephalic, atraumatic EENT: Pupils are 3 mm and sluggish bilaterally conjunctivae normal color, sclerae non-icteric; moist mucous membranes. NECK: Supple, non-tender; no meningismus. LUNGS: There are mild scattered rhonchi. HEART: Regular rate and rhythm, no murmur CHEST: No deformity; non-tender ABDOMEN: The abdomen is soft, and non-tender, no masses or bruits. EXTREM: Normal ROM; no deformity, Normal pulses palpable in all extremities. There is bilateral 2+ pedal edema, along with skin changes of chronic venous stasis bilaterally. SKIN: Fungal rash is present in the creases, no other rash; no diaphoresis NEURO: Patient is unresponsive, does not exhibit purposeful movement. GCS of 3 Current Patient Data Vital Signs Vital Signs Date Time Temp Pulse Resp B/P (MAP) Pulse Ox O2 Delivery O2 Flow Rate FiO2 11/30/18 12:14 Ventilator 11/30/18 11:12 94 11/30/18 11:05 96.7 60 16 133/53 (79) 15.0 96.7 Lab Values Laboratory Tests Test 11/30/18 11:10 11/30/18 11:17 11/30/18 11:18 11/30/18 11:20 Sodium Level 140 mmol/L (136-145) Potassium Level 4.0 mmol/L (3.5-5.1) Chloride Level 94 mmol/L (98-107) L Carbon Dioxide Level 27 mmol/L (21-32) Anion Gap 19 (6-14) H Blood Urea Nitrogen 21 mg/dL (7-20) H Creatinine 2.6 mg/dL (0.6-1.0) H Estimated GFR (Cockcroft-Gault) 18.2 BUN/Creatinine Ratio 8 (6-20) Glucose Level 593 mg/dL (70-99) *H Calcium Level 9.1 mg/dL (8.5-10.1) Magnesium Level 1.8 mg/dL (1.8-2.4) Total Bilirubin 0.8 mg/dL (0.2-1.0) Aspartate Amino Transferase (AST) 156 U/L (15-37) H Alanine Aminotransferase (ALT) 73 U/L (14-59) H Alkaline Phosphatase 122 U/L (46-116) H Troponin I Quantitative 0.855 ng/mL (0.000-0.055) PE-Ypu-C-Type Natriuretic Peptide 24818 pg/mL (0-124) H Total Protein 6.5 g/dL (6.4-8.2) Albumin 2.2 g/dL (3.4-5.0) L Albumin/Globulin Ratio 0.5 (1.0-1.7) L Thyroid Stimulating Hormone (TSH) 10.366 uIU/mL (0.358-3.74) H Free Thyroxine 1.52 ng/dL (0.76-1.46) H Acetone Level Neg (NEG) White Blood Count 7.8 x10^3/uL (4.0-11.0) Red Blood Count 3.77 x10^6/uL (3.50-5.40) Hemoglobin 9.4 g/dL (12.0-15.5) L Hematocrit 31.3 % (36.0-47.0) L Mean Corpuscular Volume 83 fL (79-100) Mean Corpuscular Hemoglobin 25 pg (25-35) Mean Corpuscular Hemoglobin Concent 30 g/dL (31-37) L Red Cell Distribution Width 22.3 % (11.5-14.5) H Platelet Count 172 x10^3/uL (140-400) Neutrophils (%) (Auto) 91 % (31-73) H Lymphocytes (%) (Auto) 3 % (24-48) L Monocytes (%) (Auto) 5 % (0-9) Eosinophils (%) (Auto) 0 % (0-3) Basophils (%) (Auto) 0 % (0-3) Neutrophils # (Auto) 7.1 x10^3/uL (1.8-7.7) Lymphocytes # (Auto) 0.2 x10^3/uL (1.0-4.8) L Monocytes # (Auto) 0.4 x10^3/uL (0.0-1.1) Eosinophils # (Auto) 0.0 x10^3/uL (0.0-0.7) Basophils # (Auto) 0.0 x10^3/uL (0.0-0.2) Segmented Neutrophils % 86 % (35-66) H Band Neutrophils % 3 % (0-9) Lymphocytes % 6 % (24-48) L Monocytes % 2 % (0-10) Basophils % 1 % (0-3) Metamyelocytes % 2 % (0-0) H Platelet Estimate Adequate (ADEQUATE) Anisocytosis Mod Lactic Acid Level 16.3 mmol/L (0.4-2.0) *H Urine Collection Type Unknown Urine Color Yellow Urine Clarity Cloudy Urine pH 5.0 Urine Specific [place] 1.025 Urine Protein >=300 mg/dL (NEG-TRACE) Urine Glucose (UA) >=1000 mg/dL (NEG) Urine Ketones (Stick) Negative mg/dL (NEG) Urine Blood Large (NEG) Urine Nitrite Negative (NEG) Urine Bilirubin Negative (NEG) Urine Urobilinogen Dipstick 0.2 mg/dL (0.2 mg/dL) Urine Leukocyte Esterase Moderate (NEG) Urine RBC 3-5 /HPF (0-2) Urine WBC 20-40 /HPF (0-4) Urine Squamous Epithelial Cells Mod /LPF Urine Bacteria Many /HPF (0-FEW) Urine Hyaline Casts Few /HPF Urine Mucus Slight /LPF Prothrombin Time 24.7 SEC (11.7-14.0) H Prothrombin Time INR 2.3 (0.8-1.1) H Test 11/30/18 12:01 11/30/18 12:57 11/30/18 13:35 O2 Saturation 88 % (92-99) L Arterial Blood pH 7.41 (7.35-7.45) Arterial Blood pCO2 at Patient Temp 36 mmHg (35-46) Arterial Blood pO2 at Patient Temp 58 mmHg (65-108) L Arterial Blood HCO3 23 mmol/L (21-28) Arterial Blood Base Excess -2 mmol/L (-3-3) FiO2 40 Glucose (Fingerstick) 553 mg/dL (70-99) *H Ammonia 21 mcmol/L (11-34) Laboratory Tests 11/30/18 11:17 Laboratory Tests 11/30/18 11:10 EKG EKG Probable third-degree heart block, at a ventricular rate of 58 bpm with a narrow escape rhythm, normal axis, otherwise normal intervals, biphasic anterior T waves without acute ischemic changes noted or significant change noted compared to patient's prior EKG. Radiology/Procedures Radiology/Procedures []PROCEDURE: CT HEAD WO CONTRAST EXAM: Head CT without contrast. HISTORY: Altered mental status. TECHNIQUE: Computed tomographic images of the head were obtained without contrast. *One or more of the following individualized dose reduction techniques were utilized for this examination: 1. Automated exposure control. 2. Adjustment of the mA and/or kV according to patient size. 3. Use of iterative reconstruction technique. COMPARISON: None. FINDINGS: There is no acute or subacute extra-axial or intraparenchymal hemorrhage. There is no mass effect or midline shift. There is no hydrocephalus. There are areas of decreased attenuation within the cerebral white matter, nonspecific and likely related to chronic small vessel disease. There is cerebral volume loss. The visualized portions of the orbits, paranasal sinuses and mastoid air cells are unremarkable. No suspicious calvarial lesion is seen. IMPRESSION: 1. No acute intracranial finding. Note is made that MRI is more sensitive for acute infarction. 2. Decreased attenuation within the cerebral white matter, likely due to chronic small vessel disease. 3. Mild cerebral volume loss. Course & Med Decision Making Course & Med Decision Making Pertinent Labs and Imaging studies reviewed. (See chart for details) 1:40 PM: The patient's condition remains stable. I spoke with the hospitalist, who accepted the patient to the hospital for further evaluation and treatment. Blood pressure had improved as central line was being placed, pressors are available if needed. The patient's daughter arrived in the emergency department and stated she last saw her mother yesterday evening, at about 9:30 PM, and then found her later this morning, after not seeing her for over 12 hours, sitting in a recliner, without proximal to that she normally wears, (EMS reported that her initial oxygen saturation was in the 70s, which may explain her lactic acidosis),, also with emesis on her shirt. []CENTRAL LINE INSERTION PROCEDURE NOTE: The left neck was prepped with Betadine, draped with sterile drapes, the skin was anesthetized with 1% lidocaine. The Seldinger technique was used, and the the left IJ vein was cannulated under ultrasound guidance, guidewire advanced, and line placed over the guidewire, with removal of the guidewire. All 3 ports aspirated and flushed normally. The line was sutured in place. A Biopatch was placed. A sterile dressing was placed over the line. The patient tolerated the procedure well. INTUBATION PROCEDURE NOTE: Upon initial arrival, the patient's oropharynx was suctioned, and a 7.5 endotracheal tube was advanced through the vocal cords under direct visualization, good breath sounds are present bilaterally, there was no breath sounds over the stomach and good CO2 detection was noted. Tube was secured in place. CRITICAL CARE TIME: [60] Minutes, excluding any procedures and care of other patients. Dragon Disclaimer Dragon Disclaimer This electronic medical record was generated, in whole or in part, using a voice recognition dictation system. Departure Departure Impression: Primary Impression: Septic shock Additional Impressions: Respiratory failure Renal failure UTI (urinary tract infection) CHF (congestive heart failure) Disposition: ADMITTED INPATIENT Admitting Physician: NUNU Condition: CRITICAL Referrals: STEFANO PENA PYTHON J[employer] DEVELOPER (PCP) Problem Qualifiers GHISLAINE ETIENNE MD Nov 30, 2018 11:27
[2018-11-30] MEDS ORDERED: ETOMIDATE 20 MG/10 ML VIAL. IV ONE (11:28)
[2018-11-30] MEDS ORDERED: SUCCINYLCHOLINE 200 MG/10 ML VIAL. ONE (11:28)
[2018-11-30] MEDS ORDERED: MIDAZOLAM HCL/PF 5 MG/5 ML VIAL. ONE (11:31)
[2018-11-30 11:35] LABS: BILIRUBIN,URINE NEGATIVE (NEG); CLARITY,URINE CLOUDY; COLOR,URINE YELLOW
[2018-11-30 11:35] LABS: BASO % 0 % (0-3); EOS % 0 % (0-3); HEMATOCRIT 31.3 % (36.0-47.0); HEMOGLOBIN 9.4 g/dL (12.0-15.5); LYMPH # 0.2 x10^3/uL (1.0-4.8); LYMPH % 3 % (24-48); MEAN CORPUSCULAR HEMOGLOBIN 25 pg (25-35); MEAN CORPUSCULAR HGB CONC 30 g/dL (31-37); MEAN CORPUSCULAR VOLUME 83 fL (79-100); MONO # 0.4 x10^3/uL (0.0-1.1); MONO % 5 % (0-9); NEUT # 7.1 x10^3/uL (1.8-7.7); NEUT % 91 % (31-73); PLATELET COUNT 172 x10^3/uL (140-400); RED BLOOD COUNT 3.77 x10^6/uL (3.50-5.40); RED CELL DISTRIBUTION WIDTH 22.3 % (11.5-14.5); WHITE BLOOD COUNT 7.8 x10^3/uL (4.0-11.0)
[2018-11-30 11:36] LABS: NITRITE,URINE NEGATIVE (NEG); PROTEIN,URINE >=300 mg/dL (NEG-TRACE); UROBILINOGEN,URINE 0.2 mg/dL (0.2 mg/dL)
[2018-11-30 11:43] LABS: PROTHROMBIN TIME PATIENT 24.7 SEC (11.7-14.0)
[2018-11-30] MEDS ORDERED: MIDAZOLAM HCL/PF 5 MG/5 ML VIAL. NS ONE (11:45)
[2018-11-30] MEDS ORDERED: VANCOMYCIN 1GM IVPB FOR OMNI 250 ML IV ONE (11:45)
[2018-11-30] MEDS ORDERED: IV NORMAL SALINE 1000ML BAG 1,000 ML IV ONE ×3 (11:45→13:15)
[2018-11-30] MEDS ORDERED: MIDAZOLAM 100mg/100ml NS BAG 100 ML IV ONE ×2 (11:45)
[2018-11-30] MEDS ORDERED: MIDAZOLAM HCL/PF 5 MG/5 ML VIAL. IV ONE (11:45)
--- NOTE | 2018-11-30 11:50 | RAD ---
PORTABLE CHEST 1V 11:06 AM Clinical indications: Respiratory failure. COMPARISON: January 31, 2018. Findings: ET tube is in place and the tip is located 7 cm above the level of the kianna. NG tube is in place and the tip cannot be seen in this study but the tube extends to at least the level of the distal esophagus near the GE junction. Moderate-sized bilateral pleural effusions are seen right greater than left. Associated bibasilar compressive atelectasis and/or pulmonary edema is seen. There is mild perihilar pulmonary edema present. No pneumothorax is seen. The heart size is not significantly enlarged given AP portable study. Mediastinum is unchanged. Pulmonary vasculature is unremarkable. IMPRESSION: Moderate-sized bilateral pleural effusions with associated compressive atelectasis and/or pulmonary edema. Bilateral perihilar pulmonary edema is seen. NG tube tip is not seen in this study. KUB may be helpful to document position of NG tube. Electronically signed by: Bernard Siddiqi MD (11/30/2018 11:47 AM) [id number]
[2018-11-30 11:54] LABS: ALBUMIN 2.2 g/dL (3.4-5.0); ALBUMIN/GLOBULIN RATIO 0.5 (1.0-1.7); CALCIUM 9.1 mg/dL (8.5-10.1); CREATININE 2.6 mg/dL (0.6-1.0); GFR 18.2; MAGNESIUM 1.8 mg/dL (1.8-2.4); TOTAL BILIRUBIN 0.8 mg/dL (0.2-1.0); TOTAL PROTEIN 6.5 g/dL (6.4-8.2)
[2018-11-30] MEDS ORDERED: PIPERACILLIN/TAZOBACTAM 3.375 GM in IV NORMAL SALINE 50ML 50 ML IV ONE (12:00)
[2018-11-30 12:03] LABS: FREE T4 1.52 ng/dL (0.76-1.46); THYROID STIM HORMONE (TSH) 10.366 uIU/mL (0.358-3.74)
[2018-11-30 12:04] LABS: HYALINE CASTS, URINE FEW /HPF; SQUAMOUS EPITHELIAL CELL,UR MOD /LPF
[2018-11-30 12:05] LABS: BACTERIA,URINE MANY /HPF (0-FEW); WBC,URINE 20-40 /HPF (0-4)
[2018-11-30 12:10] LABS: BASE EXCESS ABG -2 mmol/L (-3-3); HCO3 ABG 23 mmol/L (21-28); PCO2 ABG 36 mmHg (35-46); PO2 ABG 58 mmHg (65-108); SAT O2 ABG 88 % (92-99)
[2018-11-30 12:14] LABS: FIO2 ABG 40
[2018-11-30] MEDS ORDERED: INSULIN,REGULAR 150 UNIT DRIP 150 ML IV ONE (12:30)
--- NOTE | 2018-11-30 12:46 | RAD ---
EXAM: Head CT without contrast. HISTORY: Altered mental status. TECHNIQUE: Computed tomographic images of the head were obtained without contrast. *One or more of the following individualized dose reduction techniques were utilized for this examination: 1. Automated exposure control. 2. Adjustment of the mA and/or kV according to patient size. 3. Use of iterative reconstruction technique. COMPARISON: None. FINDINGS: There is no acute or subacute extra-axial or intraparenchymal hemorrhage. There is no mass effect or midline shift. There is no hydrocephalus. There are areas of decreased attenuation within the cerebral white matter, nonspecific and likely related to chronic small vessel disease. There is cerebral volume loss. The visualized portions of the orbits, paranasal sinuses and mastoid air cells are unremarkable. No suspicious calvarial lesion is seen. IMPRESSION: 1. No acute intracranial finding. Note is made that MRI is more sensitive for acute infarction. 2. Decreased attenuation within the cerebral white matter, likely due to chronic small vessel disease. 3. Mild cerebral volume loss. Electronically signed by: Emily Jolley MD (11/30/2018 12:43 PM) [id number]
[2018-11-30 12:50] LABS: % BANDS 3 % (0-9); % BASOS 1 % (0-3); % LYMPHS 6 % (24-48); % METAS 2 % (0-0); % MONOS 2 % (0-10); % SEGS 86 % (35-66)
[2018-11-30 12:51] LABS: ANISOCYTOSIS MOD; PLT ESTIMATE ADEQUATE (ADEQUATE)
[2018-11-30] MEDS ORDERED: NOREPINEPHRIN 8MG/250ML PREMIX 250 ML IV ONE (13:15)
--- NOTE | 2018-11-30 14:14 | RAD ---
Single view of the chest. 11/30/2018 1:28 PM Indication: Central line placement Comparison: Chest radiograph, earlier today Findings: There is a left internal jugular central line. Tip projects over the expected region of the superior vena cava. Enteric tube and endotracheal tube are stable. Small to moderate bilateral pleural effusions with underlying atelectasis noted. Peripherally calcified density projecting over the right chest is stable from prior studies. No pneumothorax. No acute osseous changes. IMPRESSION: 1. New left internal jugular central line with tip projecting over the expected region of the superior vena cava. 2. Enteric tube and endotracheal tube grossly stable 3.. Small to moderate pleural effusions with underlying atelectasis Electronically signed by: Bharat Sherman MD (11/30/2018 2:11 PM) [id number]
[2018-11-30] MEDS: IV NORMAL SALINE 1000ML BAG 1,000 ML IV SCH (15:11)
[2018-11-30] MEDS ORDERED: NALOXONE 0.4 MG/ML VIAL. IV PRN (15:15)
--- NOTE | 2018-11-30 15:30 | EKG ---
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
[2018-11-30 16:00] LABS: CALCIUM 7.8 mg/dL (8.5-10.1); CREATININE 2.5 mg/dL (0.6-1.0); POTASSIUM 3.3 mmol/L (3.5-5.1)
[2018-11-30] MEDS ORDERED: FUROSEMIDE 20 MG/2 ML VIAL. IVP ONE (16:00)
[2018-11-30] MEDS ORDERED: 0.9 % SODIUM CHLORIDE 10 ML DISP.SYRIN. IV PRN (16:00)
[2018-11-30] MEDS ORDERED: DEXTROSE 50% 25 GM / 50ML DISP.SYRIN. IV PRN (16:00)
[2018-11-30] MEDS ORDERED: INSULIN REGULAR VIAL 150 UNIT in 0.9 % SODIUM CHLORIDE 150ML 150 ML IV PRN (16:00)
--- NOTE | 2018-11-30 16:00 | NUR ---
Patient admit at 1500 from ED. Patient intubated on arrival and on insulin drip. Family with patient at time of arrival. Admission assessment limited due to family leaving prior to completion. Consults called. Will continue to monitor.
[2018-11-30 16:04] LABS: MAGNESIUM 1.3 mg/dL (1.8-2.4); PHOSPHORUS 3.6 mg/dL (2.6-4.7)
--- NOTE | 2018-11-30 16:12 | CONS ---
DATE OF CONSULTATION: 11/30/2018 PULMONARY CONSULTATION ATTENDING PHYSICIAN: Dr. Abelardo Dyson. REASON FOR CONSULTATION: Respiratory failure. HISTORY OF PRESENT ILLNESS: The patient is a 68-year-old female who has history of congestive heart failure, history of atrial fibrillation and has been followed at . Her daughter states that she had atrial fibrillation and pleural effusion more than a month ago at and she had fluid drained from her lungs. She was brought into the Emergency Department after she was found unresponsive by her family. The patient was brought into the Emergency Department. She was having spontaneous respiration, but was unresponsive. She had a pulse. She was intubated. She did vomit prior to arrival. Emesis was on her clothing. Some of it was suctioned at the time of intubation. The patient's blood pressure was low and her glucose was high. Her lactic acid was high at 16. Somehow per protocol, she received 2 liters of IV fluids. Her chest x-ray initially showed pleural effusion involving the right lower lobe and also small pleural effusion on the left lower lobe as well. There was evidence of congestive heart failure. Follow up chest x-ray shows slight increase in congestive heart failure and persistent pleural effusion on the right side, which probably may have been accentuated. She has tobacco history of 35 years per family. I have been asked to see her for further evaluation. ABGs post-intubation showed hypoxia with a pH of 7.41, pCO2 of 36 and a pO2 of 58. This was on 40% FiO2. PAST MEDICAL HISTORY: History of atrial fibrillation, on amiodarone and Eliquis; history of diabetes type 2, history of dyslipidemia, hypertension, hypothyroidism, [place], cellulitis and pancytopenia. PAST SURGICAL HISTORY: Cholecystectomy, hysterectomy, cardiac stents placed. ALLERGIES: None. MEDICATIONS: Reviewed as listed in the MRAD. REVIEW OF SYSTEMS: Unable to obtain from the patient. SOCIAL HISTORY: Smoked for about years before quitting. PHYSICAL EXAMINATION: VITAL SIGNS: Her blood pressure is 132/60. She is off the Levophed. Afebrile, pulse oximetry is 98% on 50% FiO2, AC mode. HEENT: Sclerae nonicteric. NECK: Supple. LUNGS: With diminished breath sounds at the bases. CARDIOVASCULAR: With a regular rate. ABDOMEN: Soft. EXTREMITIES: With bilateral pitting edema and venous stasis. LABORATORY DATA: Reviewed. Her glucoses were 412. Her BUN is 21 and a creatinine of 2.6. Her proBNP is 14,000. Troponin 0.85. INR 2.3. White cell count 7.8, hemoglobin 9.4 and platelets are 172. IMPRESSION: 1. Acute hypoxic respiratory failure secondary to acute congestive heart failure. 2. Abnormal chest x-ray with bilateral pleural effusions and vascular markings. She also received 2 liters of fluids in the ER. Radiographic findings suggestive of congestive heart failure. 3. The patient with history of atrial fibrillation, on amiodarone and Eliquis. I suspect that she probably has underlying cardiomyopathy. Needs to rule out for diastolic dysfunction as well. She had prior thoracentesis done at recently. We will obtain an echocardiogram. 4. Encephalopathy, likely related to cardiac pump failure. CT head negative. Anticipate improvement over several hours. 5. Hyperglycemia, continue insulin per protocol. 6. Abnormal renal function could be chronic kidney disease. 7. Marked lactic acidosis secondary to suspected poor myocardial perfusion. Unlikely sepsis. 8. Severe protein-calorie malnutrition. RECOMMENDATIONS: 1. Continue with present assist control mode. 2. Wean FiO2 and follow ABGs and make necessary adjustment. 3. Mild diuresis. No further IV fluids. 4. Insulin per protocol. 5. Obtain echocardiogram. 6. Follow Cardiology consult and recommendation. 7. No need for antibiotic at present. 8. Follow lactic acid level. 9. DVT and stress ulcer prophylaxis. 10. Discussed with the patient's family, RN and RT. We will follow along with you. Critical care time 37 minutes. ORQUIDEA LYNN MD DR: MARIO/stuart JOB#: [id number] / [id number]
[2018-11-30] MEDS ORDERED: MAGNESIUM SULFATE 4GM 100 ML IV ONE (16:15)
[2018-11-30] MEDS ORDERED: ASPIRIN RECTAL 300 MG SUPP. PR ONE (16:15)
--- NOTE | 2018-11-30 16:19 | PDOC2 ---
SURYA BABCOCK ETCHER ENAMELING 11/30/18 1619: CARDIAC CONSULT DATE OF CONSULT Date of Consult DATE: 11/30/18 TIME: 15:52 REASON FOR CONSULT Reason for Consult: Elevated troponin, CHF REFERRING PHYSICIAN Referring Physician: Di SOURCE Source: Caregiver (daughter), Chart review HISTORY OF PRESENT ILLNESS HISTORY OF PRESENT ILLNESS THis is a 68 yo female admitted for noted respiratory distress and unresponsiven ess. 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 She was visited by her daughter who oversees her care and found her unresponsive and was having agonal breathing and was hypotensive and was noted with vomit on her body. Pt was intubated in ED and details provided mostly by her daughter. Her BG was noted in the 400s and after further testing she was noted with severe lactic acidosis, DKA, MANDIE and CHF. No mention of any symptoms of chest pain nor SOA lately. She does have hx of CAD with stent placement in the past. Also has hx of GI bleed at least 1.5 yrs ago but no clear source was noted and was eventually placed back on eliquis due to PAFIB. She is currently in SR. PAST MEDICAL HISTORY Past Medical History Cardiovascular: AFIB, CAD, CO, Hyperlipidemia Pulmonary: COPD GI: GERD, GI bleed (Hx of Schatzki ring/non-erosive gastritis/polypectomy with hx of GI bleed with possible AVMS) with blood transfusion, internal hemorrhoids Heme/Onc: Cancer Hepatobiliary: Remote Hep A Psych: No pertinent hx Rheumatologic: No pertinent hx Infectious disease: No pertinent hx Renal/: Chronic renal insuff, Urinary Incontinence, UTI Endocrine: Diabetes EENT: Cataract PAST SURGICAL HISTORY Past Surgical History Appendectomy, Cholecystectomy, Hysterectomy, PCI/stents FAMILY HISTORY Family History: Diabetes SOCIAL HISTORY Smoke: No ALCOHOL: none Drugs: None Lives: Alone CURRENT MEDICATIONS CURRENT MEDICATIONS Current Medications Medications (Trade) Dose Ordered Sig/Kerry Route PRN Reason Start Time Stop Time Status Last Admin Dose Admin Sodium Chloride 1,000 ml @ 100 mls/hr Q10H IV 11/30/18 11:10 11/30/18 21:09 11/30/18 14:02 Midazolam HCl 100 ml @ 0 mls/hr 1X ONCE IV 11/30/18 11:45 11/30/18 11:46 DC 11/30/18 11:56 Midazolam HCl (Versed) 2 mg 1X ONCE IV 11/30/18 11:45 11/30/18 11:46 DC 11/30/18 11:51 Piperacillin Sod/ Tazobactam Sod 3.375 gm/Sodium Chloride 50 ml @ 100 mls/hr 1X ONCE IV 11/30/18 12:00 11/30/18 12:29 DC 11/30/18 12:14 Vancomycin HCl 250 ml @ 250 mls/hr 1X ONCE IV 11/30/18 11:45 11/30/18 12:44 DC 11/30/18 12:01 Sodium Chloride 1,000 ml @ 1,000 mls/hr 1X ONCE IV 11/30/18 11:45 11/30/18 12:44 DC 11/30/18 11:50 Sodium Chloride 1,000 ml @ 1,000 mls/hr 1X ONCE IV 11/30/18 12:00 11/30/18 12:59 DC 11/30/18 12:14 Insulin Human Regular 150 ml @ 0 mls/hr 1X ONCE IV 11/30/18 12:30 11/30/18 12:33 DC 11/30/18 13:41 Norepinephrine Bitartrate 250 ml @ 14.884 mls/ hr 1X ONCE IV 11/30/18 13:15 12/01/18 06:02 11/30/18 13:44 ALLERGIES ALLERGIES: Coded Allergies: No Known Medication Allergies (Verified Allergy, Unknown, 10/25/17) ROS Review of System unreliable, encephalopathy PHYSICAL EXAM General: Other (sedated) HEENT: Atraumatic, Mucous membr. moist/pink, Other (hisutism) Lungs: Other (basilar crackles, intubated with vent) Heart: Regular rate (SR) Abdomen: Soft Extremities: No cyanosis, No edema Skin: No breakdown, No significant lesion, Other (venous dermatitis) Neuro: Other (sedated) Psych/Mental Status: Other (sedated) MUSCULOSKELETAL: Osteoarthritic changes both hands VITALS/I&O VITALS/I&O: Vital Signs Date Time Temp Pulse Resp B/P (MAP) Pulse Ox O2 Delivery O2 Flow Rate FiO2 11/30/18 15:00 98.2 79 20 132/60 (84) 98 Ventilator 98.2 11/30/18 11:05 15.0 LABS Lab: Laboratory Tests Test 11/30/18 11:10 11/30/18 11:17 11/30/18 11:18 11/30/18 11:20 Sodium Level 140 mmol/L (136-145) Potassium Level 4.0 mmol/L (3.5-5.1) Chloride Level 94 mmol/L (98-107) L Carbon Dioxide Level 27 mmol/L (21-32) Anion Gap 19 (6-14) H Blood Urea Nitrogen 21 mg/dL (7-20) H Creatinine 2.6 mg/dL (0.6-1.0) H Estimated GFR (Cockcroft-Gault) 18.2 BUN/Creatinine Ratio 8 (6-20) Glucose Level 593 mg/dL (70-99) *H Calcium Level 9.1 mg/dL (8.5-10.1) Magnesium Level 1.8 mg/dL (1.8-2.4) Total Bilirubin 0.8 mg/dL (0.2-1.0) Aspartate Amino Transferase (AST) 156 U/L (15-37) H Alanine Aminotransferase (ALT) 73 U/L (14-59) H Alkaline Phosphatase 122 U/L (46-116) H Troponin I Quantitative 0.855 ng/mL (0.000-0.055) CL-Mnf-Q-Type Natriuretic Peptide 64714 pg/mL (0-124) H Total Protein 6.5 g/dL (6.4-8.2) Albumin 2.2 g/dL (3.4-5.0) L Albumin/Globulin Ratio 0.5 (1.0-1.7) L Thyroid Stimulating Hormone (TSH) 10.366 uIU/mL (0.358-3.74) H Free Thyroxine 1.52 ng/dL (0.76-1.46) H Acetone Level Neg (NEG) White Blood Count 7.8 x10^3/uL (4.0-11.0) Red Blood Count 3.77 x10^6/uL (3.50-5.40) Hemoglobin 9.4 g/dL (12.0-15.5) L Hematocrit 31.3 % (36.0-47.0) L Mean Corpuscular Volume 83 fL (79-100) Mean Corpuscular Hemoglobin 25 pg (25-35) Mean Corpuscular Hemoglobin Concent 30 g/dL (31-37) L Red Cell Distribution Width 22.3 % (11.5-14.5) H Platelet Count 172 x10^3/uL (140-400) Neutrophils (%) (Auto) 91 % (31-73) H Lymphocytes (%) (Auto) 3 % (24-48) L Monocytes (%) (Auto) 5 % (0-9) Eosinophils (%) (Auto) 0 % (0-3) Basophils (%) (Auto) 0 % (0-3) Neutrophils # (Auto) 7.1 x10^3/uL (1.8-7.7) Lymphocytes # (Auto) 0.2 x10^3/uL (1.0-4.8) L Monocytes # (Auto) 0.4 x10^3/uL (0.0-1.1) Eosinophils # (Auto) 0.0 x10^3/uL (0.0-0.7) Basophils # (Auto) 0.0 x10^3/uL (0.0-0.2) Segmented Neutrophils % 86 % (35-66) H Band Neutrophils % 3 % (0-9) Lymphocytes % 6 % (24-48) L Monocytes % 2 % (0-10) Basophils % 1 % (0-3) Metamyelocytes % 2 % (0-0) H Platelet Estimate Adequate (ADEQUATE) Anisocytosis Mod Lactic Acid Level 16.3 mmol/L (0.4-2.0) *H Urine Collection Type Unknown Urine Color Yellow Urine Clarity Cloudy Urine pH 5.0 Urine Specific [place] 1.025 Urine Protein >=300 mg/dL (NEG-TRACE) Urine Glucose (UA) >=1000 mg/dL (NEG) Urine Ketones (Stick) Negative mg/dL (NEG) Urine Blood Large (NEG) Urine Nitrite Negative (NEG) Urine Bilirubin Negative (NEG) Urine Urobilinogen Dipstick 0.2 mg/dL (0.2 mg/dL) Urine Leukocyte Esterase Moderate (NEG) Urine RBC 3-5 /HPF (0-2) Urine WBC 20-40 /HPF (0-4) Urine Squamous Epithelial Cells Mod /LPF Urine Bacteria Many /HPF (0-FEW) Urine Hyaline Casts Few /HPF Urine Mucus Slight /LPF Prothrombin Time 24.7 SEC (11.7-14.0) H Prothrombin Time INR 2.3 (0.8-1.1) H Test 11/30/18 12:01 11/30/18 12:57 11/30/18 13:35 11/30/18 15:08 O2 Saturation 88 % (92-99) L Arterial Blood pH 7.41 (7.35-7.45) Arterial Blood pCO2 at Patient Temp 36 mmHg (35-46) Arterial Blood pO2 at Patient Temp 58 mmHg (65-108) L Arterial Blood HCO3 23 mmol/L (21-28) Arterial Blood Base Excess -2 mmol/L (-3-3) FiO2 40 Glucose (Fingerstick) 553 mg/dL (70-99) *H 412 mg/dL (70-99) H Ammonia 21 mcmol/L (11-34) Laboratory Tests 11/30/18 11:17 Laboratory Tests 11/30/18 11:10 ECHOCARDIOGRAM ECHOCARDIOGRAM <Conclusion> The left ventricular systolic function is normal. The Ejection Fraction is 55-60%. There is normal LV segmental wall motion. The left atrium is mildly dilated. Trace mitral regurgitation. Trace to mild tricuspid regurgitation. The PA pressure was estimated at 54 mmHg. There is no evidence of significant pericardial effusion. DATE: 10/25/17 1621 HEART CATH HEART CATH CORONARY ANGIOGRAPHY: LM is a large caliber vessel with normal angiographic appearance. LAD is a moderate caliber vessel with a patent proximal stent. The remainder of the vessel has mild luminal irregularities. Ramus is a moderate caliber vessel with proximal to mid 30% stenosis. LCx is a moderate caliber co-dominant vessel with mild diffuse luminal irregu larities. OM1 is a small caliber vessel with normal angiographic appearance. RCA is a moderate caliber co-dominant vessel with patent proximal and mid stents with mild diffuse 20% ISR. The remainder of the vessel has mild luminal irregularities. RPDA is a small caliber vessels with normal angiographic appearance. Conclusion 1. Elevated left ventricular filling pressure. 2. Two vessel CAD with patent RCA/LAD stents. Recommendations Aggressive Medical Therapy DATE: 03/22/17 1753 ASSESSMENT/PLAN ASSESSMENT/PLAN 1. Acute respiratory failure with possible aspiration: intubated with vent. pulmonary consulted 2. UTI sepsis 3. DKA with severe lactic acidosis 4. Severe MANDIE with possible ATN: dehydrated. 5. Metabolic/hypoxic encephalopathy 6. NSTEMI: multifactorial including suspected ischemia. Trop 0.8 with abnormal EKG ([facility]) 7. Possible recurrence of breast CA: reported lumps on breasts with mamogram due tomorrow with hx of breast CA. 8. Hx of GI bleed: possible AVMs in colon in the past per GI 9. Hx of PAFIB: remains on SR Was on amiodarone in the past DC'd due to severe transaminitis. 10.. CAD s/p PCI/stent LAD/RCA: cardiac cath 03/2017 showed patent stents 11. Hx of HTN: hypotensive 12. HLP 13. DM2: initially at 500s 14. Hypothyroidism: TSH not on goal at 10. Per PCP 15. Obesity: unknown for TRAM Recommendations 1. No heparin for now with inr at 2.3. Stop eliquis 2. Abx per ID. Nephrology consulted. 3. Insulin drip per PCP 4. Levophed, ASA, IVF 5. Trend troponin. TTE 6. Supportive care. 7. Ischemic workup will be considered once acute extracardiac issues are better 8. Will review cardiac records when available RAND GOLDEN MD 11/30/182049: CARDIAC CONSULT ASSESSMENT/PLAN ASSESSMENT/PLAN Patient seen and examined. Agree with WATER TAXI CAPTAIN's assessment and plan. Continue vent management for acute resp failure/poss asp pneumonia per pulm team Cannot stop heparin for NSTEMI/CAD due to therapeutic INR and GIB in past Agree with stopping eliquis Hypotension/sepsis needing pressors - abx per ID Nephrology following for ac on chr renal insuff Agree with 2D echo to assess LVF Guarded prognosis. Thank you for your consultation SURYA BABCOCK APRN Nov 30, 2018 16:19 RAND GOLDEN MD Nov 30, 2018 20:50
--- NOTE | 2018-11-30 16:27 | PDOC1 ---
History and Physical Date of Admission Date of Admission DATE: 11/30/18 TIME: 16:01 Identification/Chief Complaint Chief Complaint AMS Problems: (1) UTI (urinary tract infection) (2) Respiratory failure (3) CHF (congestive heart failure) (4) Renal failure (5) Septic shock Source Source: Caregiver, Chart review History of Present Illness History of Present Illness 68-year-old female hx of COPD, chronic hypox resp failure on home 02, diastolic CHF, PAF on coumadin, CAD, obesity, CKD baseline creatine 1.5-2 who was brought in by EMS when family found her unresponsive this AM lying on her recliner chair covered in vomit.. daughter usually checks on her twice a day to give her meds. unclear when patient was in her last normal state of health. unclear how long she was down as patient lives alone. patient was having spontaneous respirations but was unresponsive so patient was intubated. daughter has no further details unclear if any prodrome of symptoms. patient has never done this before. no suspicious foul play. patient does not take any prescribed narcotics or benzos. no prior hx of stroke or seizures per family. cvl placed by ER doc given hypotension. patient intubated upon arrival. hospitalist called for admission. Past Medical History Cardiovascular: AFIB, CAD, CHF, HTN, CO, Hyperlipidemia Pulmonary: COPD GI: GERD Heme/Onc: Cancer Hepatobiliary: No pertinent hx Psych: No pertinent hx Rheumatologic: No pertinent hx Infectious disease: No pertinent hx Renal/: Chronic renal failure, Urinary Incontinence Endocrine: Diabetes Past Surgical History Past Surgical History: Appendectomy, Cholecystectomy, Cataract Removal, Mastectomy, Hysterectomy, Other Family History Family History unable to obtain Family History: Diabetes Social History ALCOHOL: none Drugs: None Current Problem List Problem List Problems Medical Problems: (1) CHF (congestive heart failure) Status: Acute (2) Renal failure Status: Acute (3) Respiratory failure Status: Acute (4) Septic shock Status: Acute (5) UTI (urinary tract infection) Status: Acute Current Medications Current Medications Current Medications Sodium Chloride 1,000 ml @ 100 mls/hr Q10H IV Last administered on 11/30/18at 14:02; Start 11/30/18 at 11:10; Stop 11/30/18 at 21:09 Etomidate (Amidate) 20 mg STK-MED ONCE IV ; Start 11/30/18 at 11:28; Stop 11/30/18 at 11:29; Status DC Succinylcholine Chloride (Anectine) 200 mg STK-MED ONCE .ROUTE ; Start 11/30/18 at 11:28; Stop 11/30/18 at 11:29; Status DC Midazolam HCl (Versed) 5 mg STK-MED ONCE .ROUTE ; Start 11/30/18 at 11:31; Stop 11/30/18 at 11:32; Status DC Midazolam HCl (Versed) 2 mg 1X ONCE NS ; Start 11/30/18 at 11:45; Stop 11/30/18 at 11:46; Status DC Midazolam HCl 100 ml @ 0 mls/hr 1X ONCE IV ; Start 11/30/18 at 11:45; Stop 11/30/18 at 11:46; Status UNV Midazolam HCl 100 ml @ 0 mls/hr 1X ONCE IV Last administered on 11/30/18at 11:56; Start 11/30/18 at 11:45; Stop 11/30/18 at 11:46; Status DC Midazolam HCl (Versed) 2 mg 1X ONCE IV Last administered on 11/30/18at 11:51; Start 11/30/18 at 11:45; Stop 11/30/18 at 11:46; Status DC Piperacillin Sod/ Tazobactam Sod 3.375 gm/Sodium Chloride 50 ml @ 100 mls/hr 1X ONCE IV Last administered on 11/30/18at 12:14; Start 11/30/18 at 12:00; Stop 11/30/18 at 12:29; Status DC Vancomycin HCl 250 ml @ 250 mls/hr 1X ONCE IV Last administered on 11/30/18at 12:01; Start 11/30/18 at 11:45; Stop 11/30/18 at 12:44; Status DC Sodium Chloride 1,000 ml @ 1,000 mls/hr 1X ONCE IV Last administered on 11/30/18at 11:50; Start 11/30/18 at 11:45; Stop 11/30/18 at 12:44; Status DC Sodium Chloride 1,000 ml @ 1,000 mls/hr 1X ONCE IV Last administered on 11/30/18at 12:14; Start 11/30/18 at 12:00; Stop 11/30/18 at 12:59; Status DC Insulin Human Regular 150 ml @ 0 mls/hr 1X ONCE IV Last administered on 11/30/18at 13:41; Start 11/30/18 at 12:30; Stop 11/30/18 at 12:33; Status DC Sodium Chloride 1,000 ml @ 1,000 mls/hr 1X ONCE IV ; Start 11/30/18 at 13:15; Stop 11/30/18 at 14:14; Status DC Norepinephrine Bitartrate 250 ml @ 14.884 mls/ hr 1X ONCE IV Last administered on 11/30/18at 13:44; Start 11/30/18 at 13:15; Stop 12/01/18 at 06:02 Fentanyl Citrate 30 ml @ 0 mls/hr CONT PRN PRN IV PER PROTOCOL; Start 11/30/18 at 15:15 Naloxone HCl (Narcan) 0.4 mg PRN Q2MIN PRN IV SEE INSTRUCTIONS; Start 11/30/18 at 15:15 Sodium Chloride 1,000 ml @ 25 mls/hr Q24H IV ; Start 11/30/18 at 15:11 Active Scripts Active Humalog (Insulin Lispro) 100 Unit/1 Ml Insuln.pen 10 Units SQ TIDWMEALS MDD 1 14 Days Lantus Solostar (Insulin Glargine,Hum.rec.anlog) 100 Unit/1 Ml Insuln.pen 30 Units SQ QHS 14 Days Gabapentin 100 Mg Capsule 200 Mg PO TID MDD 1 14 Days Hydrocodone-Apap 5-325 (Hydrocodone Bit/Acetaminophen) 1 Each Tablet 1 Tab PO PRN Q6HRS PRN Amlodipine Besylate 10 Mg Tablet 10 Mg PO DAILY MDD 1 Clonidine Tts-2 (Clonidine) 1 Each Patch.tdwk 1 Patch TD WEEKLY MDD 1 Hydralazine Hcl 50 Mg Tablet 50 Mg PO TID MDD 1 Reported Potassium Chloride 10 Meq Tablet.er 10 Meq PO DAILY Furosemide 40 Mg Tablet 40 Mg PO BID Fosamax (Alendronate Sodium) 70 Mg Tablet 1 Tab PO WEEKLY wednesday Vitamin D2 (Ergocalciferol (Vitamin D2)) 50,000 Unit Capsule 1 Cap PO TWICE WEEKLY WED AND wed Metoprolol Succinate ( Xl ) (Metoprolol Succinate) 25 Mg Tab.er.24h 1 Tab PO DAILY Voltaren (Diclofenac Sodium) 100 Gm Gel..gram. 1 Gm TP QID Ferrous Sulfate 325 Mg Tablet 325 Mg PO DAILY Colestipol Hcl 1 Gm Tablet 1 Gm PO DAILY Oxybutynin Chloride 5 Mg Tablet 5 Mg PO TID Lipitor (Atorvastatin Calcium) 80 Mg Tablet 80 Mg PO HS Levothyroxine Sodium 150 Mcg Tablet 1 Tab PO DAILY Isosorbide Mononitrate Er (Isosorbide Mononitrate) 30 Mg Tab.er.24h 1 Tab PO DAILY Lantus (Insulin Glargine,Hum.rec.anlog) 100 Unit/1 Ml Vial 52 Unit SQ BID MAY INCREASE FOR BLOOD SUGARS GREATER THAN 200 FASTING Duoneb 0.5-3(2.5) Mg/3 Ml (Albuterol/Ipratropium) 3 Ml Ampul.neb 3 Ml IH QID Ventolin Hfa Inhaler (Albuterol Sulfate) 18 Gm Hfa.aer.ad 2 Puff INH Q4HRS PRN Venlafaxine Hcl Er (Venlafaxine Hcl) 150 Mg Cap.er.24h 150 Mg PO DAILY Novolog Flexpen (Insulin Aspart) 100 Unit/1 Ml Insuln.pen 30 Unit SQ TIDAC Pantoprazole Sodium 40 Mg Tablet.dr 40 Mg PO DAILY Trazodone Hcl 100 Mg Tablet 200 Mg PO HS Allergies Allergies: Coded Allergies: No Known Medication Allergies (Verified Allergy, Unknown, 10/25/17) ROS Review of System unable to obtain as patient intubated Physical Exam Physical Exam GENERAL: intubated and sedated on vent HEENT: Head normocephalic, atraumatic. NECK: Supple LUNGS: Clear to auscultation. HEART: RRR, S1, S2 present, pulses intact ABDOMEN: Soft, positive bowel sounds. EXTREMITIES: venous stasis ulcer to LE, + edema NEUROLOGIC: Normal speech, normal tone PSYCHIATRIC: Normal affect, normal mood. Vitals Vitals Vital Signs Date Time Temp Pulse Resp B/P (MAP) Pulse Ox O2 Delivery O2 Flow Rate FiO2 11/30/18 15:00 98.2 79 20 132/60 (84) 98 Ventilator 98.2 11/30/18 11:05 15.0 Labs Labs Laboratory Tests Test 11/30/18 11:10 11/30/18 11:17 11/30/18 11:18 11/30/18 11:20 Sodium Level 140 mmol/L (136-145) Potassium Level 4.0 mmol/L (3.5-5.1) Chloride Level 94 mmol/L (98-107) Carbon Dioxide Level 27 mmol/L (21-32) Anion Gap 19 (6-14) Blood Urea Nitrogen 21 mg/dL (7-20) Creatinine 2.6 mg/dL (0.6-1.0) Estimated GFR (Cockcroft-Gault) 18.2 BUN/Creatinine Ratio 8 (6-20) Glucose Level 593 mg/dL (70-99) Calcium Level 9.1 mg/dL (8.5-10.1) Magnesium Level 1.8 mg/dL (1.8-2.4) Total Bilirubin 0.8 mg/dL (0.2-1.0) Aspartate Amino Transf (AST/SGOT) 156 U/L (15-37) Alanine Aminotransferase (ALT/SGPT) 73 U/L (14-59) Alkaline Phosphatase 122 U/L (46-116) Troponin I Quantitative 0.855 ng/mL (0.000-0.055) DN-Cip-R-Type Natriuretic Peptide 69784 pg/mL (0-124) Total Protein 6.5 g/dL (6.4-8.2) Albumin 2.2 g/dL (3.4-5.0) Albumin/Globulin Ratio 0.5 (1.0-1.7) Thyroid Stimulating Hormone (TSH) 10.366 uIU/mL (0.358-3.74) Free Thyroxine 1.52 ng/dL (0.76-1.46) Acetone Level Neg (NEG) White Blood Count 7.8 x10^3/uL (4.0-11.0) Red Blood Count 3.77 x10^6/uL (3.50-5.40) Hemoglobin 9.4 g/dL (12.0-15.5) Hematocrit 31.3 % (36.0-47.0) Mean Corpuscular Volume 83 fL (79-100) Mean Corpuscular Hemoglobin 25 pg (25-35) Mean Corpuscular Hemoglobin Concent 30 g/dL (31-37) Red Cell Distribution Width 22.3 % (11.5-14.5) Platelet Count 172 x10^3/uL (140-400) Neutrophils (%) (Auto) 91 % (31-73) Lymphocytes (%) (Auto) 3 % (24-48) Monocytes (%) (Auto) 5 % (0-9) Eosinophils (%) (Auto) 0 % (0-3) Basophils (%) (Auto) 0 % (0-3) Neutrophils # (Auto) 7.1 x10^3/uL (1.8-7.7) Lymphocytes # (Auto) 0.2 x10^3/uL (1.0-4.8) Monocytes # (Auto) 0.4 x10^3/uL (0.0-1.1) Eosinophils # (Auto) 0.0 x10^3/uL (0.0-0.7) Basophils # (Auto) 0.0 x10^3/uL (0.0-0.2) Segmented Neutrophils % 86 % (35-66) Band Neutrophils % 3 % (0-9) Lymphocytes % 6 % (24-48) Monocytes % 2 % (0-10) Basophils % 1 % (0-3) Metamyelocytes % 2 % (0-0) Platelet Estimate Adequate (ADEQUATE) Anisocytosis Mod Lactic Acid Level 16.3 mmol/L (0.4-2.0) Urine Collection Type Unknown Urine Color Yellow Urine Clarity Cloudy Urine pH 5.0 Urine Specific [place] 1.025 Urine Protein >=300 mg/dL (NEG-TRACE) Urine Glucose (UA) >=1000 mg/dL (NEG) Urine Ketones (Stick) Negative mg/dL (NEG) Urine Blood Large (NEG) Urine Nitrite Negative (NEG) Urine Bilirubin Negative (NEG) Urine Urobilinogen Dipstick 0.2 mg/dL (0.2 mg/dL) Urine Leukocyte Esterase Moderate (NEG) Urine RBC 3-5 /HPF (0-2) Urine WBC 20-40 /HPF (0-4) Urine Squamous Epithelial Cells Mod /LPF Urine Bacteria Many /HPF (0-FEW) Urine Hyaline Casts Few /HPF Urine Mucus Slight /LPF Prothrombin Time 24.7 SEC (11.7-14.0) Prothromb Time International Ratio 2.3 (0.8-1.1) Test 11/30/18 12:01 11/30/18 12:57 11/30/18 13:35 11/30/18 15:08 O2 Saturation 88 % (92-99) Arterial Blood pH 7.41 (7.35-7.45) Arterial Blood pCO2 at Patient Temp 36 mmHg (35-46) Arterial Blood pO2 at Patient Temp 58 mmHg (65-108) Arterial Blood HCO3 23 mmol/L (21-28) Arterial Blood Base Excess -2 mmol/L (-3-3) FiO2 40 Glucose (Fingerstick) 553 mg/dL (70-99) 412 mg/dL (70-99) Ammonia 21 mcmol/L (11-34) Laboratory Tests Test 11/30/18 11:10 11/30/18 11:17 11/30/18 11:18 11/30/18 11:20 Sodium Level 140 mmol/L (136-145) Potassium Level 4.0 mmol/L (3.5-5.1) Chloride Level 94 mmol/L (98-107) Carbon Dioxide Level 27 mmol/L (21-32) Anion Gap 19 (6-14) Blood Urea Nitrogen 21 mg/dL (7-20) Creatinine 2.6 mg/dL (0.6-1.0) Estimated GFR (Cockcroft-Gault) 18.2 BUN/Creatinine Ratio 8 (6-20) Glucose Level 593 mg/dL (70-99) Calcium Level 9.1 mg/dL (8.5-10.1) Magnesium Level 1.8 mg/dL (1.8-2.4) Total Bilirubin 0.8 mg/dL (0.2-1.0) Aspartate Amino Transf (AST/SGOT) 156 U/L (15-37) Alanine Aminotransferase (ALT/SGPT) 73 U/L (14-59) Alkaline Phosphatase 122 U/L (46-116) Troponin I Quantitative 0.855 ng/mL (0.000-0.055) AI-Akq-Z-Type Natriuretic Peptide 68861 pg/mL (0-124) Total Protein 6.5 g/dL (6.4-8.2) Albumin 2.2 g/dL (3.4-5.0) Albumin/Globulin Ratio 0.5 (1.0-1.7) Thyroid Stimulating Hormone (TSH) 10.366 uIU/mL (0.358-3.74) Free Thyroxine 1.52 ng/dL (0.76-1.46) Acetone Level Neg (NEG) White Blood Count 7.8 x10^3/uL (4.0-11.0) Red Blood Count 3.77 x10^6/uL (3.50-5.40) Hemoglobin 9.4 g/dL (12.0-15.5) Hematocrit 31.3 % (36.0-47.0) Mean Corpuscular Volume 83 fL (79-100) Mean Corpuscular Hemoglobin 25 pg (25-35) Mean Corpuscular Hemoglobin Concent 30 g/dL (31-37) Red Cell Distribution Width 22.3 % (11.5-14.5) Platelet Count 172 x10^3/uL (140-400) Neutrophils (%) (Auto) 91 % (31-73) Lymphocytes (%) (Auto) 3 % (24-48) Monocytes (%) (Auto) 5 % (0-9) Eosinophils (%) (Auto) 0 % (0-3) Basophils (%) (Auto) 0 % (0-3) Neutrophils # (Auto) 7.1 x10^3/uL (1.8-7.7) Lymphocytes # (Auto) 0.2 x10^3/uL (1.0-4.8) Monocytes # (Auto) 0.4 x10^3/uL (0.0-1.1) Eosinophils # (Auto) 0.0 x10^3/uL (0.0-0.7) Basophils # (Auto) 0.0 x10^3/uL (0.0-0.2) Segmented Neutrophils % 86 % (35-66) Band Neutrophils % 3 % (0-9) Lymphocytes % 6 % (24-48) Monocytes % 2 % (0-10) Basophils % 1 % (0-3) Metamyelocytes % 2 % (0-0) Platelet Estimate Adequate (ADEQUATE) Anisocytosis Mod Lactic Acid Level 16.3 mmol/L (0.4-2.0) Urine Collection Type Unknown Urine Color Yellow Urine Clarity Cloudy Urine pH 5.0 Urine Specific [place] 1.025 Urine Protein >=300 mg/dL (NEG-TRACE) Urine Glucose (UA) >=1000 mg/dL (NEG) Urine Ketones (Stick) Negative mg/dL (NEG) Urine Blood Large (NEG) Urine Nitrite Negative (NEG) Urine Bilirubin Negative (NEG) Urine Urobilinogen Dipstick 0.2 mg/dL (0.2 mg/dL) Urine Leukocyte Esterase Moderate (NEG) Urine RBC 3-5 /HPF (0-2) Urine WBC 20-40 /HPF (0-4) Urine Squamous Epithelial Cells Mod /LPF Urine Bacteria Many /HPF (0-FEW) Urine Hyaline Casts Few /HPF Urine Mucus Slight /LPF Prothrombin Time 24.7 SEC (11.7-14.0) Prothromb Time International Ratio 2.3 (0.8-1.1) Test 11/30/18 12:01 11/30/18 12:57 11/30/18 13:35 11/30/18 15:08 O2 Saturation 88 % (92-99) Arterial Blood pH 7.41 (7.35-7.45) Arterial Blood pCO2 at Patient Temp 36 mmHg (35-46) Arterial Blood pO2 at Patient Temp 58 mmHg (65-108) Arterial Blood HCO3 23 mmol/L (21-28) Arterial Blood Base Excess -2 mmol/L (-3-3) FiO2 40 Glucose (Fingerstick) 553 mg/dL (70-99) 412 mg/dL (70-99) Ammonia 21 mcmol/L (11-34) VTE Prophylaxis Ordered VTE Prophylaxis Devices: Yes VTE Pharmacological Prophylaxi: Yes Assessment/Plan Assessment/Plan ASSESSMENT Acute Encephalopathy, unclear etiology Acute on Chronic Hypoxic Resp Failure, currently intubated Bilateral Pleural Effusions Chronic hypoxia, on 02 at home Lactic Acidosis suspect secondary to prolonged hypoxia +/- sepsis Acute on Chronic Kidney Disease stage 3 Hyperglycemia in setting of known DM2 Septic Shock secondary unclear source Probable UTI Hx of urinary retention with Cadet in place Hx of HTN PAF on AC, hx of melena in past Hx of Breast Cancer HLD Cognitive Impairment at baseline bl leg venous stasis morbid obesity CAD s/p PCI/stent LAD/RCA: cardiac cath 03/2017 showed patent stents. Hypothyroidism Obesity: unknown for TRAM PLAN admit to ICU vent support, sedation support. apprec pulm CVL placed given hypotension in ED. pressor support as needed Broad specturm abx with vanc and zosyn, follow cultures suspect aspiration PNA? follow lactic acid place on insulin drip cards, nephro, pulm, ID, and neuro consult NG tube insertion restart AC full code critically ill patient prognosis guarded >45 min of critical care time spent on patient. Problem Qualifiers (1) UTI (urinary tract infection): Urinary tract infection type: acute cystitis Hematuria presence: without hematuria Qualified Codes: N30.00 - Acute cystitis without hematuria (2) Respiratory failure: Chronicity: acute Respiratory failure complication: hypoxia Qualified Codes: J96.01 - Acute respiratory failure with hypoxia (3) CHF (congestive heart failure): Heart failure type: combined systolic and diastolic Heart failure chronicity: acute Qualified Codes: I50.41 - Acute combined systolic (congestive) and diastolic (congestive) heart failure (4) Renal failure: Renal failure chronicity: acute SOLANGE VELAZQUEZ MD Nov 30, 2018 16:27
--- NOTE | 2018-11-30 16:33 | NUR ---
Wound Care: Wound care consult for coccyx PU. Coccyx with stage 3 PU with DTI, wound cleansed with saline wash and measured. Skin prep to mihir wound, aquacel ag and foam applied. No other open wounds noted upon assessment. Nystatin applied to groin area. Pt left turned to her left, heels floated with pillows, POC communicated with COCO King. Family at bedside at time of assessment. Wound care will follow up on 12/07.
[2018-11-30] MEDS: POTASSIUM CHL 20MEQ PREMIX 50 ML IV SCH ×2 (16:34→17:52)
[2018-11-30] MEDS: PIPERACILLIN/TAZOBACTAM 3.375 GM in IV NORMAL SALINE 50ML 50 ML IV SCH (18:00)
[2018-11-30] MEDS ORDERED: MIDAZOLAM 100mg/100ml NS BAG 100 ML IV PRN (18:15)
[2018-11-30 20:37] LABS: CALCIUM 8.4 mg/dL (8.5-10.1); CREATININE 2.3 mg/dL (0.6-1.0); MAGNESIUM 2.2 mg/dL (1.8-2.4); PHOSPHORUS 1.3 mg/dL (2.6-4.7); POTASSIUM 3.4 mmol/L (3.5-5.1)
[2018-11-30] MEDS: SENNOSIDES/DOCUSATE 8.6/50MG TABLET. PO SCH (21:00)
[2018-11-30] MEDS: INSULIN GLARGINE SYRINGE. SQ SCH (21:09)
[2018-11-30] MEDS ORDERED: HEPARIN for SUB-Q USE 5,000 UNIT/ML VIAL. SQ SCH (22:00)
[2018-11-30] MEDS ORDERED: FUROSEMIDE 40 MG/4 ML VIAL. IVP ONE (22:00)
--- NOTE | 2018-11-30 23:42 | NUR ---
Dr. Boswell paged at 214 regarding pt Anion Gap closure. Dr. Boswell ordered to give 20 units of Lantus now and Q12hrs after initial dose. After initial dose of Lantus recheck BG and turn off insulin gtt if applicable. Dr. Boswell ordered to stop Q4hr lab draws and the electrolyte protocol. He ordered for labs to be drawn routine in the A.M.. Dr. Potts paged at 2100 and again at [address] Potts responded at 221 and alerted of above information. Dr. Potts stated that pts INR is therapeutic and that she was on Elaquis at home, so he is not concerned with the elevated troponin at this time. Dr. Potts also informed of the pts decreased urine output regardless of the 20mg of Lasix given earlier in the day. Dr Potts ordered another 40mg of lasix to be given X1. Pt currently stable, will continue to monitor.
[2018-12-01] VITALS (27 sets, daily range): BP systolic 71–159; BP diastolic 34–76
[2018-12-01] MEDS: PIPERACILLIN/TAZOBACTAM 3.375 GM in IV NORMAL SALINE 50ML 50 ML IV SCH ×5 (00:11→23:56)
[2018-12-01 05:41] LABS: CALCIUM 8.4 mg/dL (8.5-10.1); CREATININE 2.4 mg/dL (0.6-1.0); MAGNESIUM 2.1 mg/dL (1.8-2.4); POTASSIUM 3.1 mmol/L (3.5-5.1)
[2018-12-01 08:18] LABS: BASE EXCESS ABG 10 mmol/L (-3-3); HCO3 ABG 31 mmol/L (21-28); PCO2 ABG 28 mmHg (35-46); PO2 ABG 83 mmHg (65-108); SAT O2 ABG 97 % (92-99)
[2018-12-01 08:29] LABS: FIO2 ABG 50
--- NOTE | 2018-12-01 08:44 | RAD ---
AP view of the abdomen Clinical indications: NG tube placement. FINDINGS/ IMPRESSION: Tip of an NG tube is seen within the mid body of the stomach. No dilatation of large or small bowel is evident. Bilateral interstitial lung infiltrates or pulmonary edema is evident along with a small right-sided pleural effusion. This was on the previous chest x-ray dated November 30, 2018. Electronically signed by: Bernard Siddiqi MD (12/01/2018 8:41 AM) [id number]
--- NOTE | 2018-12-01 08:44 | PDOC ---
Infectious Disease Note Vital Sign Vital Signs Vital Signs Date Time Temp Pulse Resp B/P (MAP) Pulse Ox O2 Delivery O2 Flow Rate FiO2 12/01/18 08:09 100 Ventilator 12/01/18 06:00 76 20 92/45 (61) 12/01/18 04:00 98.2 98.2 12/01/18 01:52 15.0 Labs Lab Laboratory Tests Test 11/30/18 11:10 11/30/18 11:17 11/30/18 11:18 11/30/18 11:20 Sodium Level 140 mmol/L (136-145) Potassium Level 4.0 mmol/L (3.5-5.1) Chloride Level 94 mmol/L (98-107) Carbon Dioxide Level 27 mmol/L (21-32) Anion Gap 19 (6-14) Blood Urea Nitrogen 21 mg/dL (7-20) Creatinine 2.6 mg/dL (0.6-1.0) Estimated GFR (Cockcroft-Gault) 18.2 BUN/Creatinine Ratio 8 (6-20) Glucose Level 593 mg/dL (70-99) Calcium Level 9.1 mg/dL (8.5-10.1) Magnesium Level 1.8 mg/dL (1.8-2.4) Total Bilirubin 0.8 mg/dL (0.2-1.0) Aspartate Amino Transf (AST/SGOT) 156 U/L (15-37) Alanine Aminotransferase (ALT/SGPT) 73 U/L (14-59) Alkaline Phosphatase 122 U/L (46-116) Troponin I Quantitative 0.855 ng/mL (0.000-0.055) LI-Sst-X-Type Natriuretic Peptide 24017 pg/mL (0-124) Total Protein 6.5 g/dL (6.4-8.2) Albumin 2.2 g/dL (3.4-5.0) Albumin/Globulin Ratio 0.5 (1.0-1.7) Thyroid Stimulating Hormone (TSH) 10.366 uIU/mL (0.358-3.74) Free Thyroxine 1.52 ng/dL (0.76-1.46) Acetone Level Neg (NEG) White Blood Count 7.8 x10^3/uL (4.0-11.0) Red Blood Count 3.77 x10^6/uL (3.50-5.40) Hemoglobin 9.4 g/dL (12.0-15.5) Hematocrit 31.3 % (36.0-47.0) Mean Corpuscular Volume 83 fL (79-100) Mean Corpuscular Hemoglobin 25 pg (25-35) Mean Corpuscular Hemoglobin Concent 30 g/dL (31-37) Red Cell Distribution Width 22.3 % (11.5-14.5) Platelet Count 172 x10^3/uL (140-400) Neutrophils (%) (Auto) 91 % (31-73) Lymphocytes (%) (Auto) 3 % (24-48) Monocytes (%) (Auto) 5 % (0-9) Eosinophils (%) (Auto) 0 % (0-3) Basophils (%) (Auto) 0 % (0-3) Neutrophils # (Auto) 7.1 x10^3/uL (1.8-7.7) Lymphocytes # (Auto) 0.2 x10^3/uL (1.0-4.8) Monocytes # (Auto) 0.4 x10^3/uL (0.0-1.1) Eosinophils # (Auto) 0.0 x10^3/uL (0.0-0.7) Basophils # (Auto) 0.0 x10^3/uL (0.0-0.2) Segmented Neutrophils % 86 % (35-66) Band Neutrophils % 3 % (0-9) Lymphocytes % 6 % (24-48) Monocytes % 2 % (0-10) Basophils % 1 % (0-3) Metamyelocytes % 2 % (0-0) Platelet Estimate Adequate (ADEQUATE) Anisocytosis Mod Lactic Acid Level 16.3 mmol/L (0.4-2.0) Urine Collection Type Unknown Urine Color Yellow Urine Clarity Cloudy Urine pH 5.0 Urine Specific [place] 1.025 Urine Protein >=300 mg/dL (NEG-TRACE) Urine Glucose (UA) >=1000 mg/dL (NEG) Urine Ketones (Stick) Negative mg/dL (NEG) Urine Blood Large (NEG) Urine Nitrite Negative (NEG) Urine Bilirubin Negative (NEG) Urine Urobilinogen Dipstick 0.2 mg/dL (0.2 mg/dL) Urine Leukocyte Esterase Moderate (NEG) Urine RBC 3-5 /HPF (0-2) Urine WBC 20-40 /HPF (0-4) Urine Squamous Epithelial Cells Mod /LPF Urine Bacteria Many /HPF (0-FEW) Urine Hyaline Casts Few /HPF Urine Mucus Slight /LPF Prothrombin Time 24.7 SEC (11.7-14.0) Prothromb Time International Ratio 2.3 (0.8-1.1) Test 11/30/18 12:01 11/30/18 12:57 11/30/18 13:35 11/30/18 15:08 O2 Saturation 88 % (92-99) Arterial Blood pH 7.41 (7.35-7.45) Arterial Blood pCO2 at Patient Temp 36 mmHg (35-46) Arterial Blood pO2 at Patient Temp 58 mmHg (65-108) Arterial Blood HCO3 23 mmol/L (21-28) Arterial Blood Base Excess -2 mmol/L (-3-3) FiO2 40 Glucose (Fingerstick) 553 mg/dL (70-99) 412 mg/dL (70-99) Ammonia 21 mcmol/L (11-34) Test 11/30/18 15:35 11/30/18 16:24 11/30/18 17:22 11/30/18 18:27 Sodium Level 143 mmol/L (136-145) Potassium Level 3.3 mmol/L (3.5-5.1) Chloride Level 100 mmol/L (98-107) Carbon Dioxide Level 30 mmol/L (21-32) Anion Gap 13 (6-14) Blood Urea Nitrogen 22 mg/dL (7-20) Creatinine 2.5 mg/dL (0.6-1.0) Estimated GFR (Cockcroft-Gault) 19.0 Glucose Level 410 mg/dL (70-99) Lactic Acid Level 9.2 mmol/L (0.4-2.0) Calcium Level 7.8 mg/dL (8.5-10.1) Phosphorus Level 3.6 mg/dL (2.6-4.7) Magnesium Level 1.3 mg/dL (1.8-2.4) Troponin I Quantitative 5.316 ng/mL (0.000-0.055) Glucose (Fingerstick) 402 mg/dL (70-99) 401 mg/dL (70-99) 333 mg/dL (70-99) Test 11/30/18 19:34 11/30/18 19:36 11/30/18 20:38 11/30/18 21:05 Glucose (Fingerstick) 173 mg/dL (70-99) 139 mg/dL (70-99) 119 mg/dL (70-99) Sodium Level 145 mmol/L (136-145) Potassium Level 3.4 mmol/L (3.5-5.1) Chloride Level 102 mmol/L (98-107) Carbon Dioxide Level 34 mmol/L (21-32) Anion Gap 9 (6-14) Blood Urea Nitrogen 24 mg/dL (7-20) Creatinine 2.3 mg/dL (0.6-1.0) Estimated GFR (Cockcroft-Gault) 21.0 Glucose Level 187 mg/dL (70-99) Calcium Level 8.4 mg/dL (8.5-10.1) Phosphorus Level 1.3 mg/dL (2.6-4.7) Magnesium Level 2.2 mg/dL (1.8-2.4) Troponin I Quantitative 10.962 ng/mL (0.000-0.055) Test 12/01/18 00:01 12/01/18 05:05 12/01/18 05:12 12/01/18 08:00 Glucose (Fingerstick) 161 mg/dL (70-99) 145 mg/dL (70-99) Sodium Level 145 mmol/L (136-145) Potassium Level 3.1 mmol/L (3.5-5.1) Chloride Level 103 mmol/L (98-107) Carbon Dioxide Level 36 mmol/L (21-32) Anion Gap 6 (6-14) Blood Urea Nitrogen 29 mg/dL (7-20) Creatinine 2.4 mg/dL (0.6-1.0) Estimated GFR (Cockcroft-Gault) 20.0 Glucose Level 151 mg/dL (70-99) Calcium Level 8.4 mg/dL (8.5-10.1) Magnesium Level 2.1 mg/dL (1.8-2.4) O2 Saturation 97 % (92-99) Arterial Blood pH 7.66 (7.35-7.45) Arterial Blood pCO2 at Patient Temp 28 mmHg (35-46) Arterial Blood pO2 at Patient Temp 83 mmHg (65-108) Arterial Blood HCO3 31 mmol/L (21-28) Arterial Blood Base Excess 10 mmol/L (-3-3) FiO2 50 Objective Assessment pt seen, consult dictated Plan Plan of Care / URIEL PEREZ MD Dec 01, 2018 08:44
[2018-12-01] MEDS: SENNOSIDES/DOCUSATE 8.6/50MG TABLET. PO SCH ×2 (09:09→21:38)
[2018-12-01] MEDS: INSULIN GLARGINE SYRINGE. SQ SCH ×2 (09:10→21:00)
--- NOTE | 2018-12-01 09:20 | CONS ---
DATE OF CONSULTATION: 12/01/2018 REQUESTING PHYSICIAN: Dr. Dyson. REASON FOR CONSULTATION: Sepsis. HISTORY OF PRESENT ILLNESS: This is a 68-year-old female who was brought in from home. The patient lives independently at home. The patient was found by daughter to be unresponsive with the vomit all over. The patient was intubated, ventilated and admitted to the ICU. The patient had been hypotensive. The patient also had a lactic acid up to 16, although blood sugars were high. There was no metabolic acidosis, also very high troponin elevation, abnormal urinalysis and the patient received Zosyn and one dose of vancomycin. Since then, no nausea, vomiting, diarrhea noted. The patient has a sacrococcygeal decubitus, which is chronic, in fact appears to be healing well. PAST MEDICAL HISTORY: Positive for hypertension, hyperlipidemia, atrial fibrillation, diabetes, hypothyroidism, coronary artery disease, multiple leg surgeries done in the past, sacrococcygeal decubitus, some sort of surgery there done also, has had cholecystectomy, hysterectomy, cardiac stenting done, pleural effusion removal done recently at . SOCIAL HISTORY: Negative for smoking, alcohol use or drug use. ALLERGIES: No known drug allergies. CURRENT MEDICATIONS: Reviewed. REVIEW OF SYSTEMS: As per the HPI through the patient's nurse. The patient is not able to provide as well as there is no family member at the bedside right now. PHYSICAL EXAMINATION: GENERAL: Sedated, orally intubated female, not in distress. VITAL SIGNS: Temperature 98.2, pulse 76, respirations 20, blood pressure 92/45. HEENT: Both pupils are round and reacting. No conjunctival lesion. Mouth: Orally cannot be visualized, orally intubated. NECK: Supple, no JVP, no lymphadenopathy. LUNGS: Decreased breath sounds bilaterally. HEART: S1, S2 regular. No gallop or murmur. ABDOMEN: Soft, nontender. EXTREMITIES: Chronic venous insufficiency changes present. There is no acute cellulitis or skin breakdown. Sacrococcygeal wound appears clean at least stage 2. 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 LABORATORY DATA: White count is 7.8, hemoglobin 9.4, platelets are 172,000. BUN and creatinine is 21 and 2.6. Blood glucose was 593, AST 156, ALT 73. BNP 14,018. Albumin 2.2. Lactic acid 16.3. TSH is 10.3. Troponin is now up to 10.9. Urinalysis showed 20-40 wbc's. Acetone negative. Chest x-ray, bilateral pleural effusion and perihilar infiltrates. IMPRESSION: 1. Lactic acidosis. This could be multifactorial, infection, ischemic bowel, cardiac hypoperfusion, even seizure are possibilities. 2. Suspected aspiration pneumonia. 3. Congestive heart failure. 4. Troponin leak. 5. Abnormal urinalysis/urinary tract infection. 6. Hypoxic respiratory failure. 7. Diabetes. 8. Sacrococcygeal decubitus. RECOMMENDATIONS: Continue Zosyn. We will not use vancomycin, add daptomycin. Supportive care. Consider a CT chest, abdomen and pelvis. We will follow the cultures and we will continue to follow. Thank you very much, Dr. Dyson, for giving me the opportunity to participate in this patient's care. URIEL PEREZ MD DR: SARAH/stuart JOB#: [id number] / [id number] PARDEEP
[2018-12-01 10:00] LABS: BASE EXCESS ABG 9 mmol/L (-3-3); HCO3 ABG 34 mmol/L (21-28); PCO2 ABG 49 mmHg (35-46); PO2 ABG 94 mmHg (65-108); SAT O2 ABG 96 % (92-99)
[2018-12-01 10:04] LABS: FIO2 ABG 50
[2018-12-01] MEDS: DAPTOmycin (GENERIC) IVPB 320 MG in IV NORMAL SALINE 50ML 50 ML IV SCH (10:45)
[2018-12-01] MEDS ORDERED: ALBUMIN HUMAN 5% 500 ML IV ONE ×2 (10:50→11:00)
--- NOTE | 2018-12-01 11:02 | PDOC ---
[facility] PROGRESS NOTE Chief Complaint Chief Complaint Respiratory failure Renal Failure Sepsis UTI History of Present Illness History of Present Illness 12/01/18 Pt was seen and examined in the ICU Pt is intubated with Vent Settings: (AC/12/450/150% 5 PEEP) Echo was being performed in room during exam DW RN Vitals/I&O Vitals/I&O: Vital Signs Date Time Temp Pulse Resp B/P (MAP) Pulse Ox O2 Delivery O2 Flow Rate FiO2 12/01/18 09:04 100 Ventilator 12/01/18 06:00 76 20 92/45 (61) 12/01/18 04:00 98.2 98.2 12/01/18 01:52 15.0 I & O 11/30/18 11/30/18 12/01/18 15:00 23:00 07:00 Intake Total 2300 ml 805.02 ml 205 ml Output Total 370 ml 260 ml Balance 2300 ml 435.02 ml -55 ml Physical Exam General: Other (sedated) Heart: Regular rate (SR) Lungs: Other Abdomen: Soft Extremities: No cyanosis, No edema Skin: No breakdown, No significant lesion, Other (venous dermatitis) Labs Labs: Laboratory Tests Test 11/30/18 11:10 11/30/18 11:17 11/30/18 11:18 11/30/18 11:20 Sodium Level 140 mmol/L (136-145) Potassium Level 4.0 mmol/L (3.5-5.1) Chloride Level 94 mmol/L (98-107) Carbon Dioxide Level 27 mmol/L (21-32) Anion Gap 19 (6-14) Blood Urea Nitrogen 21 mg/dL (7-20) Creatinine 2.6 mg/dL (0.6-1.0) Estimated GFR (Cockcroft-Gault) 18.2 BUN/Creatinine Ratio 8 (6-20) Glucose Level 593 mg/dL (70-99) Calcium Level 9.1 mg/dL (8.5-10.1) Magnesium Level 1.8 mg/dL (1.8-2.4) Total Bilirubin 0.8 mg/dL (0.2-1.0) Aspartate Amino Transf (AST/SGOT) 156 U/L (15-37) Alanine Aminotransferase (ALT/SGPT) 73 U/L (14-59) Alkaline Phosphatase 122 U/L (46-116) Troponin I Quantitative 0.855 ng/mL (0.000-0.055) JM-Siy-H-Type Natriuretic Peptide 29827 pg/mL (0-124) Total Protein 6.5 g/dL (6.4-8.2) Albumin 2.2 g/dL (3.4-5.0) Albumin/Globulin Ratio 0.5 (1.0-1.7) Thyroid Stimulating Hormone (TSH) 10.366 uIU/mL (0.358-3.74) Free Thyroxine 1.52 ng/dL (0.76-1.46) Acetone Level Neg (NEG) White Blood Count 7.8 x10^3/uL (4.0-11.0) Red Blood Count 3.77 x10^6/uL (3.50-5.40) Hemoglobin 9.4 g/dL (12.0-15.5) Hematocrit 31.3 % (36.0-47.0) Mean Corpuscular Volume 83 fL (79-100) Mean Corpuscular Hemoglobin 25 pg (25-35) Mean Corpuscular Hemoglobin Concent 30 g/dL (31-37) Red Cell Distribution Width 22.3 % (11.5-14.5) Platelet Count 172 x10^3/uL (140-400) Neutrophils (%) (Auto) 91 % (31-73) Lymphocytes (%) (Auto) 3 % (24-48) Monocytes (%) (Auto) 5 % (0-9) Eosinophils (%) (Auto) 0 % (0-3) Basophils (%) (Auto) 0 % (0-3) Neutrophils # (Auto) 7.1 x10^3/uL (1.8-7.7) Lymphocytes # (Auto) 0.2 x10^3/uL (1.0-4.8) Monocytes # (Auto) 0.4 x10^3/uL (0.0-1.1) Eosinophils # (Auto) 0.0 x10^3/uL (0.0-0.7) Basophils # (Auto) 0.0 x10^3/uL (0.0-0.2) Segmented Neutrophils % 86 % (35-66) Band Neutrophils % 3 % (0-9) Lymphocytes % 6 % (24-48) Monocytes % 2 % (0-10) Basophils % 1 % (0-3) Metamyelocytes % 2 % (0-0) Platelet Estimate Adequate (ADEQUATE) Anisocytosis Mod Lactic Acid Level 16.3 mmol/L (0.4-2.0) Urine Collection Type Unknown Urine Color Yellow Urine Clarity Cloudy Urine pH 5.0 Urine Specific [place] 1.025 Urine Protein >=300 mg/dL (NEG-TRACE) Urine Glucose (UA) >=1000 mg/dL (NEG) Urine Ketones (Stick) Negative mg/dL (NEG) Urine Blood Large (NEG) Urine Nitrite Negative (NEG) Urine Bilirubin Negative (NEG) Urine Urobilinogen Dipstick 0.2 mg/dL (0.2 mg/dL) Urine Leukocyte Esterase Moderate (NEG) Urine RBC 3-5 /HPF (0-2) Urine WBC 20-40 /HPF (0-4) Urine Squamous Epithelial Cells Mod /LPF Urine Bacteria Many /HPF (0-FEW) Urine Hyaline Casts Few /HPF Urine Mucus Slight /LPF Prothrombin Time 24.7 SEC (11.7-14.0) Prothromb Time International Ratio 2.3 (0.8-1.1) Test 11/30/18 12:01 11/30/18 12:57 11/30/18 13:35 11/30/18 15:08 O2 Saturation 88 % (92-99) Arterial Blood pH 7.41 (7.35-7.45) Arterial Blood pCO2 at Patient Temp 36 mmHg (35-46) Arterial Blood pO2 at Patient Temp 58 mmHg (65-108) Arterial Blood HCO3 23 mmol/L (21-28) Arterial Blood Base Excess -2 mmol/L (-3-3) FiO2 40 Glucose (Fingerstick) 553 mg/dL (70-99) 412 mg/dL (70-99) Ammonia 21 mcmol/L (11-34) Test 11/30/18 15:35 11/30/18 16:24 11/30/18 17:22 11/30/18 18:27 Sodium Level 143 mmol/L (136-145) Potassium Level 3.3 mmol/L (3.5-5.1) Chloride Level 100 mmol/L (98-107) Carbon Dioxide Level 30 mmol/L (21-32) Anion Gap 13 (6-14) Blood Urea Nitrogen 22 mg/dL (7-20) Creatinine 2.5 mg/dL (0.6-1.0) Estimated GFR (Cockcroft-Gault) 19.0 Glucose Level 410 mg/dL (70-99) Lactic Acid Level 9.2 mmol/L (0.4-2.0) Calcium Level 7.8 mg/dL (8.5-10.1) Phosphorus Level 3.6 mg/dL (2.6-4.7) Magnesium Level 1.3 mg/dL (1.8-2.4) Troponin I Quantitative 5.316 ng/mL (0.000-0.055) Glucose (Fingerstick) 402 mg/dL (70-99) 401 mg/dL (70-99) 333 mg/dL (70-99) Test 11/30/18 19:34 11/30/18 19:36 11/30/18 20:38 11/30/18 21:05 Glucose (Fingerstick) 173 mg/dL (70-99) 139 mg/dL (70-99) 119 mg/dL (70-99) Sodium Level 145 mmol/L (136-145) Potassium Level 3.4 mmol/L (3.5-5.1) Chloride Level 102 mmol/L (98-107) Carbon Dioxide Level 34 mmol/L (21-32) Anion Gap 9 (6-14) Blood Urea Nitrogen 24 mg/dL (7-20) Creatinine 2.3 mg/dL (0.6-1.0) Estimated GFR (Cockcroft-Gault) 21.0 Glucose Level 187 mg/dL (70-99) Calcium Level 8.4 mg/dL (8.5-10.1) Phosphorus Level 1.3 mg/dL (2.6-4.7) Magnesium Level 2.2 mg/dL (1.8-2.4) Troponin I Quantitative 10.962 ng/mL (0.000-0.055) Test 12/01/18 00:01 12/01/18 05:05 12/01/18 05:12 12/01/18 08:00 Glucose (Fingerstick) 161 mg/dL (70-99) 145 mg/dL (70-99) Sodium Level 145 mmol/L (136-145) Potassium Level 3.1 mmol/L (3.5-5.1) Chloride Level 103 mmol/L (98-107) Carbon Dioxide Level 36 mmol/L (21-32) Anion Gap 6 (6-14) Blood Urea Nitrogen 29 mg/dL (7-20) Creatinine 2.4 mg/dL (0.6-1.0) Estimated GFR (Cockcroft-Gault) 20.0 Glucose Level 151 mg/dL (70-99) Calcium Level 8.4 mg/dL (8.5-10.1) Phosphorus Level 1.1 mg/dL (2.6-4.7) Magnesium Level 2.1 mg/dL (1.8-2.4) O2 Saturation 97 % (92-99) Arterial Blood pH 7.66 (7.35-7.45) Arterial Blood pCO2 at Patient Temp 28 mmHg (35-46) Arterial Blood pO2 at Patient Temp 83 mmHg (65-108) Arterial Blood HCO3 31 mmol/L (21-28) Arterial Blood Base Excess 10 mmol/L (-3-3) FiO2 50 Test 12/01/18 09:45 O2 Saturation 96 % (92-99) Arterial Blood pH 7.46 (7.35-7.45) Arterial Blood pCO2 at Patient Temp 49 mmHg (35-46) Arterial Blood pO2 at Patient Temp 94 mmHg (65-108) Arterial Blood HCO3 34 mmol/L (21-28) Arterial Blood Base Excess 9 mmol/L (-3-3) FiO2 50 Review of Systems Review of Systems: Unable to obtain due to vent Assessment and Plan Assessmemt and Plan Problems Medical Problems: (1) CHF (congestive heart failure) Status: Acute (2) Renal failure Status: Acute (3) Respiratory failure Status: Acute (4) Septic shock Status: Acute (5) UTI (urinary tract infection) Status: Acute Assessment CHF Respiratory failure Renal Failure Sepsis UTI Cognitive Impairment at baseline morbid obesity CAD s/p PCI/stent LAD/RCA: cardiac cath 03/2017 showed patent stents. Hypothyroidism Plan ICU monitoring Ventilation support Labs Wean ventilation IV antibiotics Vanco and Zosyn Kphos for electrolyte imbalance Home meds Consult cards, nephro, pulm, ID, neuro Full code Prognosis guarded . Comment Review of Relevant I have reviewed the following items brooke (where applicable) has been applied. Medications: Current Medications Medications (Trade) Dose Ordered Sig/Kerry Route PRN Reason Start Time Stop Time Status Last Admin Dose Admin Sodium Chloride 1,000 ml @ 100 mls/hr Q10H IV 11/30/18 11:10 11/30/18 21:09 DC 11/30/18 14:02 Midazolam HCl 100 ml @ 0 mls/hr 1X ONCE IV 11/30/18 11:45 11/30/18 11:46 DC 11/30/18 11:56 Midazolam HCl (Versed) 2 mg 1X ONCE IV 11/30/18 11:45 11/30/18 11:46 DC 11/30/18 11:51 Piperacillin Sod/ Tazobactam Sod 3.375 gm/Sodium Chloride 50 ml @ 100 mls/hr 1X ONCE IV 11/30/18 12:00 11/30/18 12:29 DC 11/30/18 12:14 Vancomycin HCl 250 ml @ 250 mls/hr 1X ONCE IV 11/30/18 11:45 11/30/18 12:44 DC 11/30/18 12:01 Sodium Chloride 1,000 ml @ 1,000 mls/hr 1X ONCE IV 11/30/18 11:45 11/30/18 12:44 DC 11/30/18 11:50 Sodium Chloride 1,000 ml @ 1,000 mls/hr 1X ONCE IV 11/30/18 12:00 11/30/18 12:59 DC 11/30/18 12:14 Insulin Human Regular 150 ml @ 0 mls/hr 1X ONCE IV 11/30/18 12:30 11/30/18 12:33 DC 11/30/18 13:41 Norepinephrine Bitartrate 250 ml @ 14.884 mls/ hr 1X ONCE IV 11/30/18 13:15 12/01/18 06:02 DC 11/30/18 13:44 Fentanyl Citrate 30 ml @ 0 mls/hr CONT PRN PRN IV PER PROTOCOL 11/30/18 15:15 12/01/18 01:22 Sodium Chloride 1,000 ml @ 25 mls/hr Q24H IV 11/30/18 15:11 11/30/18 15:11 Senna/Docusate Sodium (Senna Plus) 1 tab BID PO 11/30/18 21:00 12/01/18 09:09 Furosemide (Lasix) 20 mg 1X ONCE IVP 11/30/18 16:00 11/30/18 16:03 DC 11/30/18 16:06 Magnesium Sulfate 100 ml @ 25 mls/hr 1X ONCE IV 11/30/18 16:15 11/30/18 20:14 DC 11/30/18 16:38 Potassium Chloride/Water 50 ml @ 50 mls/hr Q1H IV 11/30/18 17:00 11/30/18 18:59 DC 11/30/18 17:52 Aspirin (Aspirin Rectal Supp) 300 mg 1X ONCE NM 11/30/18 16:15 11/30/18 16:20 DC 11/30/18 16:40 Piperacillin Sod/ Tazobactam Sod 3.375 gm/Sodium Chloride 50 ml @ 100 mls/hr Q6HRS IV 11/30/18 18:00 12/01/18 06:22 Midazolam HCl 100 ml @ 5 mls/hr CONT PRN IV SEE I/O RECORD 11/30/18 18:15 12/01/18 00:19 Insulin Glargine (Lantus Syringe) 20 unit Q12HR SQ 11/30/18 21:00 12/01/18 09:10 Furosemide (Lasix) 40 mg 1X ONCE IVP 11/30/18 22:00 11/30/18 22:01 DC 11/30/18 21:55 Daptomycin 320 mg/ Sodium Chloride 50 ml @ 100 mls/hr Q24H IV 12/01/18 10:00 12/01/18 10:45 TICO EDUARDO III DO Dec 01, 2018 11:02
--- NOTE | 2018-12-01 11:12 | PDOC ---
PULMONARY PROGRESS NOTES Subjective remains intubated fluctuating BP low dose levo Vitals Vital Signs Date Time Temp Pulse Resp B/P (MAP) Pulse Ox O2 Delivery O2 Flow Rate FiO2 12/01/18 09:04 100 Ventilator 12/01/18 06:00 76 20 92/45 (61) 12/01/18 04:00 98.2 98.2 12/01/18 01:52 15.0 Lungs: Other (decrease bs) Cardiovascular: S1, S2 Abdomen: Soft, Non-tender, Other Extremities: Other (1+edema/ stasis) Skin: Warm Labs Laboratory Tests Test 11/30/18 11:10 11/30/18 11:17 11/30/18 11:18 11/30/18 11:20 Sodium Level 140 mmol/L (136-145) Potassium Level 4.0 mmol/L (3.5-5.1) Chloride Level 94 mmol/L (98-107) Carbon Dioxide Level 27 mmol/L (21-32) Anion Gap 19 (6-14) Blood Urea Nitrogen 21 mg/dL (7-20) Creatinine 2.6 mg/dL (0.6-1.0) Estimated GFR (Cockcroft-Gault) 18.2 BUN/Creatinine Ratio 8 (6-20) Glucose Level 593 mg/dL (70-99) Calcium Level 9.1 mg/dL (8.5-10.1) Magnesium Level 1.8 mg/dL (1.8-2.4) Total Bilirubin 0.8 mg/dL (0.2-1.0) Aspartate Amino Transf (AST/SGOT) 156 U/L (15-37) Alanine Aminotransferase (ALT/SGPT) 73 U/L (14-59) Alkaline Phosphatase 122 U/L (46-116) Troponin I Quantitative 0.855 ng/mL (0.000-0.055) JK-Urt-F-Type Natriuretic Peptide 63500 pg/mL (0-124) Total Protein 6.5 g/dL (6.4-8.2) Albumin 2.2 g/dL (3.4-5.0) Albumin/Globulin Ratio 0.5 (1.0-1.7) Thyroid Stimulating Hormone (TSH) 10.366 uIU/mL (0.358-3.74) Free Thyroxine 1.52 ng/dL (0.76-1.46) Acetone Level Neg (NEG) White Blood Count 7.8 x10^3/uL (4.0-11.0) Red Blood Count 3.77 x10^6/uL (3.50-5.40) Hemoglobin 9.4 g/dL (12.0-15.5) Hematocrit 31.3 % (36.0-47.0) Mean Corpuscular Volume 83 fL (79-100) Mean Corpuscular Hemoglobin 25 pg (25-35) Mean Corpuscular Hemoglobin Concent 30 g/dL (31-37) Red Cell Distribution Width 22.3 % (11.5-14.5) Platelet Count 172 x10^3/uL (140-400) Neutrophils (%) (Auto) 91 % (31-73) Lymphocytes (%) (Auto) 3 % (24-48) Monocytes (%) (Auto) 5 % (0-9) Eosinophils (%) (Auto) 0 % (0-3) Basophils (%) (Auto) 0 % (0-3) Neutrophils # (Auto) 7.1 x10^3/uL (1.8-7.7) Lymphocytes # (Auto) 0.2 x10^3/uL (1.0-4.8) Monocytes # (Auto) 0.4 x10^3/uL (0.0-1.1) Eosinophils # (Auto) 0.0 x10^3/uL (0.0-0.7) Basophils # (Auto) 0.0 x10^3/uL (0.0-0.2) Segmented Neutrophils % 86 % (35-66) Band Neutrophils % 3 % (0-9) Lymphocytes % 6 % (24-48) Monocytes % 2 % (0-10) Basophils % 1 % (0-3) Metamyelocytes % 2 % (0-0) Platelet Estimate Adequate (ADEQUATE) Anisocytosis Mod Lactic Acid Level 16.3 mmol/L (0.4-2.0) Urine Collection Type Unknown Urine Color Yellow Urine Clarity Cloudy Urine pH 5.0 Urine Specific Cicero 1.025 Urine Protein >=300 mg/dL (NEG-TRACE) Urine Glucose (UA) >=1000 mg/dL (NEG) Urine Ketones (Stick) Negative mg/dL (NEG) Urine Blood Large (NEG) Urine Nitrite Negative (NEG) Urine Bilirubin Negative (NEG) Urine Urobilinogen Dipstick 0.2 mg/dL (0.2 mg/dL) Urine Leukocyte Esterase Moderate (NEG) Urine RBC 3-5 /HPF (0-2) Urine WBC 20-40 /HPF (0-4) Urine Squamous Epithelial Cells Mod /LPF Urine Bacteria Many /HPF (0-FEW) Urine Hyaline Casts Few /HPF Urine Mucus Slight /LPF Prothrombin Time 24.7 SEC (11.7-14.0) Prothromb Time International Ratio 2.3 (0.8-1.1) Test 11/30/18 12:01 11/30/18 12:57 11/30/18 13:35 11/30/18 15:08 O2 Saturation 88 % (92-99) Arterial Blood pH 7.41 (7.35-7.45) Arterial Blood pCO2 at Patient Temp 36 mmHg (35-46) Arterial Blood pO2 at Patient Temp 58 mmHg (65-108) Arterial Blood HCO3 23 mmol/L (21-28) Arterial Blood Base Excess -2 mmol/L (-3-3) FiO2 40 Glucose (Fingerstick) 553 mg/dL (70-99) 412 mg/dL (70-99) Ammonia 21 mcmol/L (11-34) Test 11/30/18 15:35 11/30/18 16:24 11/30/18 17:22 11/30/18 18:27 Sodium Level 143 mmol/L (136-145) Potassium Level 3.3 mmol/L (3.5-5.1) Chloride Level 100 mmol/L (98-107) Carbon Dioxide Level 30 mmol/L (21-32) Anion Gap 13 (6-14) Blood Urea Nitrogen 22 mg/dL (7-20) Creatinine 2.5 mg/dL (0.6-1.0) Estimated GFR (Cockcroft-Gault) 19.0 Glucose Level 410 mg/dL (70-99) Lactic Acid Level 9.2 mmol/L (0.4-2.0) Calcium Level 7.8 mg/dL (8.5-10.1) Phosphorus Level 3.6 mg/dL (2.6-4.7) Magnesium Level 1.3 mg/dL (1.8-2.4) Troponin I Quantitative 5.316 ng/mL (0.000-0.055) Glucose (Fingerstick) 402 mg/dL (70-99) 401 mg/dL (70-99) 333 mg/dL (70-99) Test 11/30/18 19:34 11/30/18 19:36 11/30/18 20:38 11/30/18 21:05 Glucose (Fingerstick) 173 mg/dL (70-99) 139 mg/dL (70-99) 119 mg/dL (70-99) Sodium Level 145 mmol/L (136-145) Potassium Level 3.4 mmol/L (3.5-5.1) Chloride Level 102 mmol/L (98-107) Carbon Dioxide Level 34 mmol/L (21-32) Anion Gap 9 (6-14) Blood Urea Nitrogen 24 mg/dL (7-20) Creatinine 2.3 mg/dL (0.6-1.0) Estimated GFR (Cockcroft-Gault) 21.0 Glucose Level 187 mg/dL (70-99) Calcium Level 8.4 mg/dL (8.5-10.1) Phosphorus Level 1.3 mg/dL (2.6-4.7) Magnesium Level 2.2 mg/dL (1.8-2.4) Troponin I Quantitative 10.962 ng/mL (0.000-0.055) Test 12/01/18 00:01 12/01/18 05:05 12/01/18 05:12 12/01/18 08:00 Glucose (Fingerstick) 161 mg/dL (70-99) 145 mg/dL (70-99) Sodium Level 145 mmol/L (136-145) Potassium Level 3.1 mmol/L (3.5-5.1) Chloride Level 103 mmol/L (98-107) Carbon Dioxide Level 36 mmol/L (21-32) Anion Gap 6 (6-14) Blood Urea Nitrogen 29 mg/dL (7-20) Creatinine 2.4 mg/dL (0.6-1.0) Estimated GFR (Cockcroft-Gault) 20.0 Glucose Level 151 mg/dL (70-99) Calcium Level 8.4 mg/dL (8.5-10.1) Phosphorus Level 1.1 mg/dL (2.6-4.7) Magnesium Level 2.1 mg/dL (1.8-2.4) O2 Saturation 97 % (92-99) Arterial Blood pH 7.66 (7.35-7.45) Arterial Blood pCO2 at Patient Temp 28 mmHg (35-46) Arterial Blood pO2 at Patient Temp 83 mmHg (65-108) Arterial Blood HCO3 31 mmol/L (21-28) Arterial Blood Base Excess 10 mmol/L (-3-3) FiO2 50 Test 12/01/18 09:45 O2 Saturation 96 % (92-99) Arterial Blood pH 7.46 (7.35-7.45) Arterial Blood pCO2 at Patient Temp 49 mmHg (35-46) Arterial Blood pO2 at Patient Temp 94 mmHg (65-108) Arterial Blood HCO3 34 mmol/L (21-28) Arterial Blood Base Excess 9 mmol/L (-3-3) FiO2 50 Laboratory Tests Test 11/30/18 11:10 11/30/18 11:17 11/30/18 11:18 11/30/18 11:20 Sodium Level 140 mmol/L (136-145) Potassium Level 4.0 mmol/L (3.5-5.1) Chloride Level 94 mmol/L (98-107) Carbon Dioxide Level 27 mmol/L (21-32) Anion Gap 19 (6-14) Blood Urea Nitrogen 21 mg/dL (7-20) Creatinine 2.6 mg/dL (0.6-1.0) Estimated GFR (Cockcroft-Gault) 18.2 BUN/Creatinine Ratio 8 (6-20) Glucose Level 593 mg/dL (70-99) Calcium Level 9.1 mg/dL (8.5-10.1) Magnesium Level 1.8 mg/dL (1.8-2.4) Total Bilirubin 0.8 mg/dL (0.2-1.0) Aspartate Amino Transf (AST/SGOT) 156 U/L (15-37) Alanine Aminotransferase (ALT/SGPT) 73 U/L (14-59) Alkaline Phosphatase 122 U/L (46-116) Troponin I Quantitative 0.855 ng/mL (0.000-0.055) CY-Jel-X-Type Natriuretic Peptide 77821 pg/mL (0-124) Total Protein 6.5 g/dL (6.4-8.2) Albumin 2.2 g/dL (3.4-5.0) Albumin/Globulin Ratio 0.5 (1.0-1.7) Thyroid Stimulating Hormone (TSH) 10.366 uIU/mL (0.358-3.74) Free Thyroxine 1.52 ng/dL (0.76-1.46) Acetone Level Neg (NEG) White Blood Count 7.8 x10^3/uL (4.0-11.0) Red Blood Count 3.77 x10^6/uL (3.50-5.40) Hemoglobin 9.4 g/dL (12.0-15.5) Hematocrit 31.3 % (36.0-47.0) Mean Corpuscular Volume 83 fL (79-100) Mean Corpuscular Hemoglobin 25 pg (25-35) Mean Corpuscular Hemoglobin Concent 30 g/dL (31-37) Red Cell Distribution Width 22.3 % (11.5-14.5) Platelet Count 172 x10^3/uL (140-400) Neutrophils (%) (Auto) 91 % (31-73) Lymphocytes (%) (Auto) 3 % (24-48) Monocytes (%) (Auto) 5 % (0-9) Eosinophils (%) (Auto) 0 % (0-3) Basophils (%) (Auto) 0 % (0-3) Neutrophils # (Auto) 7.1 x10^3/uL (1.8-7.7) Lymphocytes # (Auto) 0.2 x10^3/uL (1.0-4.8) Monocytes # (Auto) 0.4 x10^3/uL (0.0-1.1) Eosinophils # (Auto) 0.0 x10^3/uL (0.0-0.7) Basophils # (Auto) 0.0 x10^3/uL (0.0-0.2) Segmented Neutrophils % 86 % (35-66) Band Neutrophils % 3 % (0-9) Lymphocytes % 6 % (24-48) Monocytes % 2 % (0-10) Basophils % 1 % (0-3) Metamyelocytes % 2 % (0-0) Platelet Estimate Adequate (ADEQUATE) Anisocytosis Mod Lactic Acid Level 16.3 mmol/L (0.4-2.0) Urine Collection Type Unknown Urine Color Yellow Urine Clarity Cloudy Urine pH 5.0 Urine Specific Cicero 1.025 Urine Protein >=300 mg/dL (NEG-TRACE) Urine Glucose (UA) >=1000 mg/dL (NEG) Urine Ketones (Stick) Negative mg/dL (NEG) Urine Blood Large (NEG) Urine Nitrite Negative (NEG) Urine Bilirubin Negative (NEG) Urine Urobilinogen Dipstick 0.2 mg/dL (0.2 mg/dL) Urine Leukocyte Esterase Moderate (NEG) Urine RBC 3-5 /HPF (0-2) Urine WBC 20-40 /HPF (0-4) Urine Squamous Epithelial Cells Mod /LPF Urine Bacteria Many /HPF (0-FEW) Urine Hyaline Casts Few /HPF Urine Mucus Slight /LPF Prothrombin Time 24.7 SEC (11.7-14.0) Prothromb Time International Ratio 2.3 (0.8-1.1) Test 11/30/18 12:01 11/30/18 12:57 11/30/18 13:35 11/30/18 15:08 O2 Saturation 88 % (92-99) Arterial Blood pH 7.41 (7.35-7.45) Arterial Blood pCO2 at Patient Temp 36 mmHg (35-46) Arterial Blood pO2 at Patient Temp 58 mmHg (65-108) Arterial Blood HCO3 23 mmol/L (21-28) Arterial Blood Base Excess -2 mmol/L (-3-3) FiO2 40 Glucose (Fingerstick) 553 mg/dL (70-99) 412 mg/dL (70-99) Ammonia 21 mcmol/L (11-34) Test 11/30/18 15:35 11/30/18 16:24 11/30/18 17:22 11/30/18 18:27 Sodium Level 143 mmol/L (136-145) Potassium Level 3.3 mmol/L (3.5-5.1) Chloride Level 100 mmol/L (98-107) Carbon Dioxide Level 30 mmol/L (21-32) Anion Gap 13 (6-14) Blood Urea Nitrogen 22 mg/dL (7-20) Creatinine 2.5 mg/dL (0.6-1.0) Estimated GFR (Cockcroft-Gault) 19.0 Glucose Level 410 mg/dL (70-99) Lactic Acid Level 9.2 mmol/L (0.4-2.0) Calcium Level 7.8 mg/dL (8.5-10.1) Phosphorus Level 3.6 mg/dL (2.6-4.7) Magnesium Level 1.3 mg/dL (1.8-2.4) Troponin I Quantitative 5.316 ng/mL (0.000-0.055) Glucose (Fingerstick) 402 mg/dL (70-99) 401 mg/dL (70-99) 333 mg/dL (70-99) Test 11/30/18 19:34 11/30/18 19:36 11/30/18 20:38 11/30/18 21:05 Glucose (Fingerstick) 173 mg/dL (70-99) 139 mg/dL (70-99) 119 mg/dL (70-99) Sodium Level 145 mmol/L (136-145) Potassium Level 3.4 mmol/L (3.5-5.1) Chloride Level 102 mmol/L (98-107) Carbon Dioxide Level 34 mmol/L (21-32) Anion Gap 9 (6-14) Blood Urea Nitrogen 24 mg/dL (7-20) Creatinine 2.3 mg/dL (0.6-1.0) Estimated GFR (Cockcroft-Gault) 21.0 Glucose Level 187 mg/dL (70-99) Calcium Level 8.4 mg/dL (8.5-10.1) Phosphorus Level 1.3 mg/dL (2.6-4.7) Magnesium Level 2.2 mg/dL (1.8-2.4) Troponin I Quantitative 10.962 ng/mL (0.000-0.055) Test 12/01/18 00:01 12/01/18 05:05 12/01/18 05:12 12/01/18 08:00 Glucose (Fingerstick) 161 mg/dL (70-99) 145 mg/dL (70-99) Sodium Level 145 mmol/L (136-145) Potassium Level 3.1 mmol/L (3.5-5.1) Chloride Level 103 mmol/L (98-107) Carbon Dioxide Level 36 mmol/L (21-32) Anion Gap 6 (6-14) Blood Urea Nitrogen 29 mg/dL (7-20) Creatinine 2.4 mg/dL (0.6-1.0) Estimated GFR (Cockcroft-Gault) 20.0 Glucose Level 151 mg/dL (70-99) Calcium Level 8.4 mg/dL (8.5-10.1) Phosphorus Level 1.1 mg/dL (2.6-4.7) Magnesium Level 2.1 mg/dL (1.8-2.4) O2 Saturation 97 % (92-99) Arterial Blood pH 7.66 (7.35-7.45) Arterial Blood pCO2 at Patient Temp 28 mmHg (35-46) Arterial Blood pO2 at Patient Temp 83 mmHg (65-108) Arterial Blood HCO3 31 mmol/L (21-28) Arterial Blood Base Excess 10 mmol/L (-3-3) FiO2 50 Test 12/01/18 09:45 O2 Saturation 96 % (92-99) Arterial Blood pH 7.46 (7.35-7.45) Arterial Blood pCO2 at Patient Temp 49 mmHg (35-46) Arterial Blood pO2 at Patient Temp 94 mmHg (65-108) Arterial Blood HCO3 34 mmol/L (21-28) Arterial Blood Base Excess 9 mmol/L (-3-3) FiO2 50 Medications Active Scripts Medications Dose Route/Sig Max Daily Dose Days Date Category Dose Instructions Humalog (Insulin Lispro) 100 Unit/1 Ml Insuln.pen 10 Units SQ TIDWMEALS MDD 1 14 02/02/18 Rx Lantus Solostar (Insulin Glargine,Hum.rec.anlog) 100 Unit/1 Ml Insuln.pen 30 Units SQ QHS 14 02/02/18 Rx Gabapentin (Gabapentin) 100 Mg Capsule 200 Mg PO TID MDD 1 14 02/02/18 Rx Hydrocodone-Apap 5-325 (Hydrocodone Bit/Acetaminophen) 1 Each Tablet 1 Tab PO PRN Q6HRS PRN 02/02/18 Rx Potassium Chloride 10 Meq Tablet.er 10 Meq PO DAILY 01/26/18 Reported Furosemide 40 Mg Tablet 40 Mg PO BID 01/26/18 Reported Fosamax (Alendronate Sodium) 70 Mg Tablet 1 Tab PO WEEKLY 01/26/18 Reported wednesday Vitamin D2 (Ergocalciferol (Vitamin D2)) 50,000 Unit Capsule 1 Cap PO TWICE WEEKLY 01/26/18 Reported WED AND sAT Amlodipine Besylate 10 Mg Tablet 10 Mg PO DAILY MDD 1 01/24/18 Rx Clonidine Tts-2 (Clonidine) 1 Each Patch.tdwk 1 Patch TD WEEKLY MDD 1 01/24/18 Rx Hydralazine Hcl 50 Mg Tablet 50 Mg PO TID MDD 1 01/24/18 Rx Metoprolol Succinate ( Xl ) (Metoprolol Succinate) 25 Mg Tab.er.24h 1 Tab PO DAILY 12/31/17 Reported Voltaren (Diclofenac Sodium) 100 Gm Gel..gram. 1 Gm TP QID 12/31/17 Reported Ferrous Sulfate 325 Mg Tablet 325 Mg PO DAILY 10/24/17 Reported Colestipol Hcl 1 Gm Tablet 1 Gm PO DAILY 10/24/17 Reported Oxybutynin Chloride 5 Mg Tablet 5 Mg PO TID 03/17/17 Reported Lipitor (Atorvastatin Calcium) 80 Mg Tablet 80 Mg PO HS 03/17/17 Reported Levothyroxine Sodium 150 Mcg Tablet 1 Tab PO DAILY 03/17/17 Reported Isosorbide Mononitrate Er (Isosorbide Mononitrate) 30 Mg Tab.er.24h 1 Tab PO DAILY 03/17/17 Reported Lantus (Insulin Glargine,Hum.rec.anlog) 100 Unit/1 Ml Vial 52 Unit SQ BID 05/14/15 Reported MAY INCREASE FOR BLOOD SUGARS GREATER THAN 200 FASTING Duoneb 0.5-3(2.5) Mg/3 Ml (Albuterol/Ipratropium) 3 Ml Ampul.neb 3 Ml IH QID 05/14/15 Reported Ventolin Hfa Inhaler (Albuterol Sulfate) 18 Gm Hfa.aer.ad 2 Puff INH Q4HRS PRN 05/14/15 Reported Venlafaxine Hcl Er (Venlafaxine Hcl) 150 Mg Cap.er.24h 150 Mg PO DAILY 05/14/15 Reported Novolog Flexpen (Insulin Aspart) 100 Unit/1 Ml Insuln.pen 30 Unit SQ TIDAC 05/14/15 Reported Pantoprazole Sodium (Pantoprazole Sodium) 40 Mg Tablet.dr 40 Mg PO DAILY 05/14/15 Reported Trazodone Hcl 100 Mg Tablet 200 Mg PO HS 05/14/15 Reported Impression . 1. Acute hypoxic respiratory failure secondary to acute congestive heart failure. 2. Abnormal chest x-ray with bilateral pleural effusions and vascular markings. She also received 2 liters of fluids in the ER. Radiographic findings suggestive of congestive heart failure. 3. The patient with history of atrial fibrillation, on amiodarone and Eliquis. Likely diastolic HF. She had prior thoracentesis done at recently. We will obtain an echocardiogram. 4. Encephalopathy, likely related to cardiac pump failure. CT head negative. 5. Hyperglycemia, continue insulin per protocol. 6. Abnormal renal function could be chronic kidney disease. 7. Marked lactic acidosis secondary to suspected poor myocardial perfusion. Unlikely sepsis. 8. Severe protein-calorie malnutrition. Plan . 1. Continue with present assist control mode. 2. follow ABGs and make necessary adjustment. 3. hold further diuresis. cxr today 4. Insulin per protocol. 5. echocardiogram with normal EF 6. Follow Cardiology recommendation. 7. antibiotic per ID 8. Follow lactic acid level. 9. DVT and stress ulcer prophylaxis. 10. Discussed with the patient's family, RN and RT. We will follow along with you. Critical care time 30 minutes. ORQUIDEA LYNN MD Dec 01, 2018 11:12
[2018-12-01] MEDS: POTASSIUM PHOSPHATE DIBASIC 10 MMOL in IV DEXTROSE 5% 100ML 100 ML IV SCH ×3 (11:18→15:15)
--- NOTE | 2018-12-01 11:43 | PDOC2 ---
CONSULT Date of Consult Date of Consult DATE: 12/01/18 TIME: 11:36 Reason for Consult Reason for Consult: RENAL FAILURE Referring Physician Referring Physician: CAROLINE Identification/Chief Complaint Chief Complaint SOB Source Source: Chart review, Patient History of Present Illness Reason for Visit: THIS IS A 68 YR OLD WHO WAS FOUND UNRESPONSIVE AT HOME. SHE IS NOTED TO HAVE ACUTE RESP FAILURE AND THEN INTUBATED AND NOW IN THE ICU. CR UP TO 2.6 WITH BASELINE CR OF 1.3-1.5 C/W CKD STAGE 3. SHE IS ALSO HYPOTENSIVE AND NEEDING PRESSORS. THERE IS CONCERNS OF SEPSIS. UA IS ABNORMAL AND SHE IS NOW ON ANTIBIOTICS. SHE ALSO HAS LACTIC ACIDOSIS. CXRAY CONCERNING FOR SOME VASCULAR CONGESTION. SHE IS ON FIO2 45% ON THE VENT. HER BG WAS ALSO VERY ELEVATED WITH GLUCOSURIA BUT NO DKA WITH NEG KETONURIA. BG IS MUCH IMPROVED NOW.HEAD CT NEG Past Medical History Cardiovascular: AFIB, CAD, CHF, HTN, ND, Hyperlipidemia Pulmonary: COPD GI: GERD Heme/Onc: Cancer Hepatobiliary: No pertinent hx Psych: No pertinent hx Rheumatologic: No pertinent hx Infectious disease: No pertinent hx Renal/: Chronic renal insuff, Urinary Incontinence Endocrine: Diabetes Past Surgical History Past Surgical History: Appendectomy, Cholecystectomy, Cataract Removal, Mastectomy, Hysterectomy, Other Family History Family History: Diabetes Social History No ALCOHOL: none Drugs: None Lives: Alone Current Problem List Problem List Problems Medical Problems: (1) CHF (congestive heart failure) Status: Acute (2) Renal failure Status: Acute (3) Respiratory failure Status: Acute (4) Septic shock Status: Acute (5) UTI (urinary tract infection) Status: Acute Current Medications Current Medications Current Medications Sodium Chloride 1,000 ml @ 100 mls/hr Q10H IV Last administered on 11/30/18at 14:02; Start 11/30/18 at 11:10; Stop 11/30/18 at 21:09; Status DC Etomidate (Amidate) 20 mg STK-MED ONCE IV ; Start 11/30/18 at 11:28; Stop 11/30/18 at 11:29; Status DC Succinylcholine Chloride (Anectine) 200 mg STK-MED ONCE .ROUTE ; Start 11/30/18 at 11:28; Stop 11/30/18 at 11:29; Status DC Midazolam HCl (Versed) 5 mg STK-MED ONCE .ROUTE ; Start 11/30/18 at 11:31; Stop 11/30/18 at 11:32; Status DC Midazolam HCl (Versed) 2 mg 1X ONCE NS ; Start 11/30/18 at 11:45; Stop 11/30/18 at 11:46; Status DC Midazolam HCl 100 ml @ 0 mls/hr 1X ONCE IV ; Start 11/30/18 at 11:45; Stop 11/30/18 at 11:46; Status UNV Midazolam HCl 100 ml @ 0 mls/hr 1X ONCE IV Last administered on 11/30/18at 11:56; Start 11/30/18 at 11:45; Stop 11/30/18 at 11:46; Status DC Midazolam HCl (Versed) 2 mg 1X ONCE IV Last administered on 11/30/18at 11:51; Start 11/30/18 at 11:45; Stop 11/30/18 at 11:46; Status DC Piperacillin Sod/ Tazobactam Sod 3.375 gm/Sodium Chloride 50 ml @ 100 mls/hr 1X ONCE IV Last administered on 11/30/18at 12:14; Start 11/30/18 at 12:00; Stop 11/30/18 at 12:29; Status DC Vancomycin HCl 250 ml @ 250 mls/hr 1X ONCE IV Last administered on 11/30/18at 12:01; Start 11/30/18 at 11:45; Stop 11/30/18 at 12:44; Status DC Sodium Chloride 1,000 ml @ 1,000 mls/hr 1X ONCE IV Last administered on 11/30/18at 11:50; Start 11/30/18 at 11:45; Stop 11/30/18 at 12:44; Status DC Sodium Chloride 1,000 ml @ 1,000 mls/hr 1X ONCE IV Last administered on 11/30/18at 12:14; Start 11/30/18 at 12:00; Stop 11/30/18 at 12:59; Status DC Insulin Human Regular 150 ml @ 0 mls/hr 1X ONCE IV Last administered on 11/30/18at 13:41; Start 11/30/18 at 12:30; Stop 11/30/18 at 12:33; Status DC Sodium Chloride 1,000 ml @ 1,000 mls/hr 1X ONCE IV ; Start 11/30/18 at 13:15; Stop 11/30/18 at 14:14; Status DC Norepinephrine Bitartrate 250 ml @ 14.884 mls/ hr 1X ONCE IV Last administered on 11/30/18at 13:44; Start 11/30/18 at 13:15; Stop 12/01/18 at 06:02; Status DC Fentanyl Citrate 30 ml @ 0 mls/hr CONT PRN PRN IV PER PROTOCOL Last administered on 12/01/18at 01:22; Start 11/30/18 at 15:15 Naloxone HCl (Narcan) 0.4 mg PRN Q2MIN PRN IV SEE INSTRUCTIONS; Start 11/30/18 at 15:15 Sodium Chloride 1,000 ml @ 25 mls/hr Q24H IV Last administered on 11/30/18at 15:11; Start 11/30/18 at 15:11 Heparin Sodium (Porcine) (Heparin Sodium) 5,000 unit Q8HRS SQ ; Start 11/30/18 at 22:00; Status UNV Sodium Chloride (Normal Saline Flush) 3 ml QSHIFT PRN IV AFTER MEDS AND BLOOD DRAWS; Start 11/30/18 at 16:00 Senna/Docusate Sodium (Senna Plus) 1 tab BID PO Last administered on 12/01/18at 09:09; Start 11/30/18 at 21:00 Furosemide (Lasix) 20 mg 1X ONCE IVP Last administered on 11/30/18at 16:06; Start 11/30/18 at 16:00; Stop 11/30/18 at 16:03; Status DC Insulin Human Regular 150 unit/ Sodium Chloride 151.5 ml @ 0 mls/hr CONT PRN IV hyperglycemia; Start 11/30/18 at 16:00 Dextrose (Dextrose 50%-Water Syringe) 12.5 gm PRN Q15MIN PRN IV LOW BLOOD SUGAR; Start 11/30/18 at 16:00 Dextrose 250 ml PRN Q15MIN PRN IV LOW BLOOD SUGAR; Start 11/30/18 at 16:00 Magnesium Sulfate 100 ml @ 25 mls/hr 1X ONCE IV Last administered on 11/30/18at 16:38; Start 11/30/18 at 16:15; Stop 11/30/18 at 20:14; Status DC Potassium Chloride/Water 50 ml @ 50 mls/hr Q1H IV Last administered on 11/30/18at 17:52; Start 11/30/18 at 17:00; Stop 11/30/18 at 18:59; Status DC Aspirin (Aspirin Rectal Supp) 300 mg 1X ONCE NM Last administered on 11/30/18at 16:40; Start 11/30/18 at 16:15; Stop 11/30/18 at 16:20; Status DC Piperacillin Sod/ Tazobactam Sod 3.375 gm/Sodium Chloride 50 ml @ 100 mls/hr Q6HRS IV Last administered on 12/01/18at 11:25; Start 11/30/18 at 18:00 Midazolam HCl 100 ml @ 5 mls/hr CONT PRN IV SEE I/O RECORD Last administered on 12/01/18at 00:19; Start 11/30/18 at 18:15 Insulin Glargine (Lantus Syringe) 20 unit Q12HR SQ Last administered on 12/01/18at 09:10; Start 11/30/18 at 21:00 Furosemide (Lasix) 40 mg 1X ONCE IVP Last administered on 11/30/18at 21:55; Start 11/30/18 at 22:00; Stop 11/30/18 at 22:01; Status DC Daptomycin 320 mg/ Sodium Chloride 50 ml @ 100 mls/hr Q24H IV Last administered on 12/01/18at 10:45; Start 12/01/18 at 10:00 Potassium Phosphate 10 mmol/ Dextrose 103.3333 ml @ 51.667 m... Q2H IV Last administered on 12/01/18at 11:18; Start 12/01/18 at 11:30; Stop 12/01/18 at 17:29 Albumin Human 500 ml @ 125 mls/hr 1X ONCE IV Last administered on 12/01/18at 10:57; Start 12/01/18 at 11:00; Stop 12/01/18 at 14:59 Albumin Human 500 ml @ As Directed STK-MED ONCE IV ; Start 12/01/18 at 10:50; Stop 12/01/18 at 10:50; Status DC Active Scripts Active Humalog (Insulin Lispro) 100 Unit/1 Ml Insuln.pen 10 Units SQ TIDWMEALS MDD 1 14 Days Lantus Solostar (Insulin Glargine,Hum.rec.anlog) 100 Unit/1 Ml Insuln.pen 30 Units SQ QHS 14 Days Gabapentin (Gabapentin) 100 Mg Capsule 200 Mg PO TID MDD 1 14 Days Hydrocodone-Apap 5-325 (Hydrocodone Bit/Acetaminophen) 1 Each Tablet 1 Tab PO PRN Q6HRS PRN Amlodipine Besylate 10 Mg Tablet 10 Mg PO DAILY MDD 1 Clonidine Tts-2 (Clonidine) 1 Each Patch.tdwk 1 Patch TD WEEKLY MDD 1 Hydralazine Hcl 50 Mg Tablet 50 Mg PO TID MDD 1 Reported Potassium Chloride 10 Meq Tablet.er 10 Meq PO DAILY Furosemide 40 Mg Tablet 40 Mg PO BID Fosamax (Alendronate Sodium) 70 Mg Tablet 1 Tab PO WEEKLY wednesday Vitamin D2 (Ergocalciferol (Vitamin D2)) 50,000 Unit Capsule 1 Cap PO TWICE WEEKLY WED AND wed Metoprolol Succinate ( Xl ) (Metoprolol Succinate) 25 Mg Tab.er.24h 1 Tab PO DAILY Voltaren (Diclofenac Sodium) 100 Gm Gel..gram. 1 Gm TP QID Ferrous Sulfate 325 Mg Tablet 325 Mg PO DAILY Colestipol Hcl 1 Gm Tablet 1 Gm PO DAILY Oxybutynin Chloride 5 Mg Tablet 5 Mg PO TID Lipitor (Atorvastatin Calcium) 80 Mg Tablet 80 Mg PO HS Levothyroxine Sodium 150 Mcg Tablet 1 Tab PO DAILY Isosorbide Mononitrate Er (Isosorbide Mononitrate) 30 Mg Tab.er.24h 1 Tab PO DAILY Lantus (Insulin Glargine,Hum.rec.anlog) 100 Unit/1 Ml Vial 52 Unit SQ BID MAY INCREASE FOR BLOOD SUGARS GREATER THAN 200 FASTING Duoneb 0.5-3(2.5) Mg/3 Ml (Albuterol/Ipratropium) 3 Ml Ampul.neb 3 Ml IH QID Ventolin Hfa Inhaler (Albuterol Sulfate) 18 Gm Hfa.aer.ad 2 Puff INH Q4HRS PRN Venlafaxine Hcl Er (Venlafaxine Hcl) 150 Mg Cap.er.24h 150 Mg PO DAILY Novolog Flexpen (Insulin Aspart) 100 Unit/1 Ml Insuln.pen 30 Unit SQ TIDAC Pantoprazole Sodium (Pantoprazole Sodium) 40 Mg Tablet.dr 40 Mg PO DAILY Trazodone Hcl 100 Mg Tablet 200 Mg PO HS Allergies Allergies: Coded Allergies: No Known Medication Allergies (Verified Allergy, Unknown, 10/25/17) ROS Review of System UNABLE TO OBTAIN Physical Exam General: Other (INTUBATED) HEENT: Atraumatic Lungs: Clear to auscultation Heart: Regular rate, Other (IRREGULAR) Abdomen: Normal bowel sounds Extremities: No clubbing, No cyanosis Skin: No breakdown Neuro: Other (SEDATED) Psych/Mental Status: Other (SEDATED) MUSCULOSKELETAL: No deformity, No swelling Vitals VITALS Vital Signs Date Time Temp Pulse Resp B/P (MAP) Pulse Ox O2 Delivery O2 Flow Rate FiO2 12/01/18 09:04 100 Ventilator 12/01/18 06:00 76 20 92/45 (61) 12/01/18 04:00 98.2 98.2 12/01/18 01:52 15.0 Labs Labs Laboratory Tests Test 11/30/18 11:10 11/30/18 11:17 11/30/18 11:18 11/30/18 11:20 Sodium Level 140 mmol/L (136-145) Potassium Level 4.0 mmol/L (3.5-5.1) Chloride Level 94 mmol/L (98-107) Carbon Dioxide Level 27 mmol/L (21-32) Anion Gap 19 (6-14) Blood Urea Nitrogen 21 mg/dL (7-20) Creatinine 2.6 mg/dL (0.6-1.0) Estimated GFR (Cockcroft-Gault) 18.2 BUN/Creatinine Ratio 8 (6-20) Glucose Level 593 mg/dL (70-99) Calcium Level 9.1 mg/dL (8.5-10.1) Magnesium Level 1.8 mg/dL (1.8-2.4) Total Bilirubin 0.8 mg/dL (0.2-1.0) Aspartate Amino Transf (AST/SGOT) 156 U/L (15-37) Alanine Aminotransferase (ALT/SGPT) 73 U/L (14-59) Alkaline Phosphatase 122 U/L (46-116) Troponin I Quantitative 0.855 ng/mL (0.000-0.055) VL-Sgv-K-Type Natriuretic Peptide 59421 pg/mL (0-124) Total Protein 6.5 g/dL (6.4-8.2) Albumin 2.2 g/dL (3.4-5.0) Albumin/Globulin Ratio 0.5 (1.0-1.7) Thyroid Stimulating Hormone (TSH) 10.366 uIU/mL (0.358-3.74) Free Thyroxine 1.52 ng/dL (0.76-1.46) Acetone Level Neg (NEG) White Blood Count 7.8 x10^3/uL (4.0-11.0) Red Blood Count 3.77 x10^6/uL (3.50-5.40) Hemoglobin 9.4 g/dL (12.0-15.5) Hematocrit 31.3 % (36.0-47.0) Mean Corpuscular Volume 83 fL (79-100) Mean Corpuscular Hemoglobin 25 pg (25-35) Mean Corpuscular Hemoglobin Concent 30 g/dL (31-37) Red Cell Distribution Width 22.3 % (11.5-14.5) Platelet Count 172 x10^3/uL (140-400) Neutrophils (%) (Auto) 91 % (31-73) Lymphocytes (%) (Auto) 3 % (24-48) Monocytes (%) (Auto) 5 % (0-9) Eosinophils (%) (Auto) 0 % (0-3) Basophils (%) (Auto) 0 % (0-3) Neutrophils # (Auto) 7.1 x10^3/uL (1.8-7.7) Lymphocytes # (Auto) 0.2 x10^3/uL (1.0-4.8) Monocytes # (Auto) 0.4 x10^3/uL (0.0-1.1) Eosinophils # (Auto) 0.0 x10^3/uL (0.0-0.7) Basophils # (Auto) 0.0 x10^3/uL (0.0-0.2) Segmented Neutrophils % 86 % (35-66) Band Neutrophils % 3 % (0-9) Lymphocytes % 6 % (24-48) Monocytes % 2 % (0-10) Basophils % 1 % (0-3) Metamyelocytes % 2 % (0-0) Platelet Estimate Adequate (ADEQUATE) Anisocytosis Mod Lactic Acid Level 16.3 mmol/L (0.4-2.0) Urine Collection Type Unknown Urine Color Yellow Urine Clarity Cloudy Urine pH 5.0 Urine Specific [place] 1.025 Urine Protein >=300 mg/dL (NEG-TRACE) Urine Glucose (UA) >=1000 mg/dL (NEG) Urine Ketones (Stick) Negative mg/dL (NEG) Urine Blood Large (NEG) Urine Nitrite Negative (NEG) Urine Bilirubin Negative (NEG) Urine Urobilinogen Dipstick 0.2 mg/dL (0.2 mg/dL) Urine Leukocyte Esterase Moderate (NEG) Urine RBC 3-5 /HPF (0-2) Urine WBC 20-40 /HPF (0-4) Urine Squamous Epithelial Cells Mod /LPF Urine Bacteria Many /HPF (0-FEW) Urine Hyaline Casts Few /HPF Urine Mucus Slight /LPF Prothrombin Time 24.7 SEC (11.7-14.0) Prothromb Time International Ratio 2.3 (0.8-1.1) Test 11/30/18 12:01 11/30/18 12:57 11/30/18 13:35 11/30/18 15:08 O2 Saturation 88 % (92-99) Arterial Blood pH 7.41 (7.35-7.45) Arterial Blood pCO2 at Patient Temp 36 mmHg (35-46) Arterial Blood pO2 at Patient Temp 58 mmHg (65-108) Arterial Blood HCO3 23 mmol/L (21-28) Arterial Blood Base Excess -2 mmol/L (-3-3) FiO2 40 Glucose (Fingerstick) 553 mg/dL (70-99) 412 mg/dL (70-99) Ammonia 21 mcmol/L (11-34) Test 11/30/18 15:35 11/30/18 16:24 11/30/18 17:22 11/30/18 18:27 Sodium Level 143 mmol/L (136-145) Potassium Level 3.3 mmol/L (3.5-5.1) Chloride Level 100 mmol/L (98-107) Carbon Dioxide Level 30 mmol/L (21-32) Anion Gap 13 (6-14) Blood Urea Nitrogen 22 mg/dL (7-20) Creatinine 2.5 mg/dL (0.6-1.0) Estimated GFR (Cockcroft-Gault) 19.0 Glucose Level 410 mg/dL (70-99) Lactic Acid Level 9.2 mmol/L (0.4-2.0) Calcium Level 7.8 mg/dL (8.5-10.1) Phosphorus Level 3.6 mg/dL (2.6-4.7) Magnesium Level 1.3 mg/dL (1.8-2.4) Troponin I Quantitative 5.316 ng/mL (0.000-0.055) Glucose (Fingerstick) 402 mg/dL (70-99) 401 mg/dL (70-99) 333 mg/dL (70-99) Test 11/30/18 19:34 11/30/18 19:36 11/30/18 20:38 11/30/18 21:05 Glucose (Fingerstick) 173 mg/dL (70-99) 139 mg/dL (70-99) 119 mg/dL (70-99) Sodium Level 145 mmol/L (136-145) Potassium Level 3.4 mmol/L (3.5-5.1) Chloride Level 102 mmol/L (98-107) Carbon Dioxide Level 34 mmol/L (21-32) Anion Gap 9 (6-14) Blood Urea Nitrogen 24 mg/dL (7-20) Creatinine 2.3 mg/dL (0.6-1.0) Estimated GFR (Cockcroft-Gault) 21.0 Glucose Level 187 mg/dL (70-99) Calcium Level 8.4 mg/dL (8.5-10.1) Phosphorus Level 1.3 mg/dL (2.6-4.7) Magnesium Level 2.2 mg/dL (1.8-2.4) Troponin I Quantitative 10.962 ng/mL (0.000-0.055) Test 12/01/18 00:01 12/01/18 05:05 12/01/18 05:12 12/01/18 08:00 Glucose (Fingerstick) 161 mg/dL (70-99) 145 mg/dL (70-99) Sodium Level 145 mmol/L (136-145) Potassium Level 3.1 mmol/L (3.5-5.1) Chloride Level 103 mmol/L (98-107) Carbon Dioxide Level 36 mmol/L (21-32) Anion Gap 6 (6-14) Blood Urea Nitrogen 29 mg/dL (7-20) Creatinine 2.4 mg/dL (0.6-1.0) Estimated GFR (Cockcroft-Gault) 20.0 Glucose Level 151 mg/dL (70-99) Calcium Level 8.4 mg/dL (8.5-10.1) Phosphorus Level 1.1 mg/dL (2.6-4.7) Magnesium Level 2.1 mg/dL (1.8-2.4) O2 Saturation 97 % (92-99) Arterial Blood pH 7.66 (7.35-7.45) Arterial Blood pCO2 at Patient Temp 28 mmHg (35-46) Arterial Blood pO2 at Patient Temp 83 mmHg (65-108) Arterial Blood HCO3 31 mmol/L (21-28) Arterial Blood Base Excess 10 mmol/L (-3-3) FiO2 50 Test 12/01/18 09:45 O2 Saturation 96 % (92-99) Arterial Blood pH 7.46 (7.35-7.45) Arterial Blood pCO2 at Patient Temp 49 mmHg (35-46) Arterial Blood pO2 at Patient Temp 94 mmHg (65-108) Arterial Blood HCO3 34 mmol/L (21-28) Arterial Blood Base Excess 9 mmol/L (-3-3) FiO2 50 Laboratory Tests Test 11/30/18 12:01 11/30/18 12:57 11/30/18 13:35 11/30/18 15:08 O2 Saturation 88 % (92-99) Arterial Blood pH 7.41 (7.35-7.45) Arterial Blood pCO2 at Patient Temp 36 mmHg (35-46) Arterial Blood pO2 at Patient Temp 58 mmHg (65-108) Arterial Blood HCO3 23 mmol/L (21-28) Arterial Blood Base Excess -2 mmol/L (-3-3) FiO2 40 Glucose (Fingerstick) 553 mg/dL (70-99) 412 mg/dL (70-99) Ammonia 21 mcmol/L (11-34) Test 11/30/18 15:35 11/30/18 16:24 11/30/18 17:22 11/30/18 18:27 Sodium Level 143 mmol/L (136-145) Potassium Level 3.3 mmol/L (3.5-5.1) Chloride Level 100 mmol/L (98-107) Carbon Dioxide Level 30 mmol/L (21-32) Anion Gap 13 (6-14) Blood Urea Nitrogen 22 mg/dL (7-20) Creatinine 2.5 mg/dL (0.6-1.0) Estimated GFR (Cockcroft-Gault) 19.0 Glucose Level 410 mg/dL (70-99) Lactic Acid Level 9.2 mmol/L (0.4-2.0) Calcium Level 7.8 mg/dL (8.5-10.1) Phosphorus Level 3.6 mg/dL (2.6-4.7) Magnesium Level 1.3 mg/dL (1.8-2.4) Troponin I Quantitative 5.316 ng/mL (0.000-0.055) Glucose (Fingerstick) 402 mg/dL (70-99) 401 mg/dL (70-99) 333 mg/dL (70-99) Test 11/30/18 19:34 11/30/18 19:36 11/30/18 20:38 11/30/18 21:05 Glucose (Fingerstick) 173 mg/dL (70-99) 139 mg/dL (70-99) 119 mg/dL (70-99) Sodium Level 145 mmol/L (136-145) Potassium Level 3.4 mmol/L (3.5-5.1) Chloride Level 102 mmol/L (98-107) Carbon Dioxide Level 34 mmol/L (21-32) Anion Gap 9 (6-14) Blood Urea Nitrogen 24 mg/dL (7-20) Creatinine 2.3 mg/dL (0.6-1.0) Estimated GFR (Cockcroft-Gault) 21.0 Glucose Level 187 mg/dL (70-99) Calcium Level 8.4 mg/dL (8.5-10.1) Phosphorus Level 1.3 mg/dL (2.6-4.7) Magnesium Level 2.2 mg/dL (1.8-2.4) Troponin I Quantitative 10.962 ng/mL (0.000-0.055) Test 12/01/18 00:01 12/01/18 05:05 12/01/18 05:12 12/01/18 08:00 Glucose (Fingerstick) 161 mg/dL (70-99) 145 mg/dL (70-99) Sodium Level 145 mmol/L (136-145) Potassium Level 3.1 mmol/L (3.5-5.1) Chloride Level 103 mmol/L (98-107) Carbon Dioxide Level 36 mmol/L (21-32) Anion Gap 6 (6-14) Blood Urea Nitrogen 29 mg/dL (7-20) Creatinine 2.4 mg/dL (0.6-1.0) Estimated GFR (Cockcroft-Gault) 20.0 Glucose Level 151 mg/dL (70-99) Calcium Level 8.4 mg/dL (8.5-10.1) Phosphorus Level 1.1 mg/dL (2.6-4.7) Magnesium Level 2.1 mg/dL (1.8-2.4) O2 Saturation 97 % (92-99) Arterial Blood pH 7.66 (7.35-7.45) Arterial Blood pCO2 at Patient Temp 28 mmHg (35-46) Arterial Blood pO2 at Patient Temp 83 mmHg (65-108) Arterial Blood HCO3 31 mmol/L (21-28) Arterial Blood Base Excess 10 mmol/L (-3-3) FiO2 50 Test 12/01/18 09:45 O2 Saturation 96 % (92-99) Arterial Blood pH 7.46 (7.35-7.45) Arterial Blood pCO2 at Patient Temp 49 mmHg (35-46) Arterial Blood pO2 at Patient Temp 94 mmHg (65-108) Arterial Blood HCO3 34 mmol/L (21-28) Arterial Blood Base Excess 9 mmol/L (-3-3) FiO2 50 Assessment/Plan Assessment/Plan IMP MANDIE WITH CR UP TO 2.6 PROB SEPSIS URINARY TRACT INFECTION HYPOTENSION ACUTE RESP FAILURE AFIB AND ANTICOAGULATION DM II-POORLY CONTROLLED MET ACIDOSIS PLAN CONTROL BG PRESSORS ANTIBIOTICS IMAGE ABD/PELVIS MAY NEED VOLUME EXPANSION ECHOCARDIOGRAM WOULD BE HELPFUL MAY NEED DIALYSIS IF NOT IMPROVING WILL FOLLOW D/W MENA DAVENPORT MD Dec 01, 2018 11:43
[2018-12-01] MEDS ORDERED: SODIUM PHOSPHATE 20 MMOL in IV DEXTROSE 5% 250 ML IV ONE (11:45)
--- NOTE | 2018-12-01 14:31 | NUR ---
SS following for discharge planning. SS reviewed pt chart. Pt is from home and is currently on the vent. SS will continue to follow for discharge planning.
[2018-12-01] MEDS: IV NORMAL SALINE 1000ML BAG 1,000 ML IV SCH (15:11)
--- NOTE | 2018-12-01 16:41 | RAD ---
Examination: CT CHEST ABDOMEN PELVIS WO History: Aspiration Comparison/Correlation: 11/30/2018 portable chest x-ray exam Findings: Axial images of the chest, abdomen, and pelvis were obtained. Sagittal and coronal reformatted images were provided. Left internal jugular catheter terminates within the superior vena cava. Enteric tube is in place. Marked coronary arterial calcification is present. Tracheomalacia and right middle lobe bronchomalacia noted. Moderate to large right pleural effusion is present. Moderate-sized left pleural effusion is noted. Bibasilar atelectatic consolidation noted. Groundglass infiltrates involving the right lung base noted. Partial right middle lobe atelectasis noted. Interstitial thickening of the lung valencia noted. Pulmonary vasculature congestion and interstitial edema noted. No pneumothorax. Cholecystectomy is noted. Liver and spleen are unremarkable. Fatty infiltration of pancreas is noted. Significant calcification of the arterial vasculature of the abdomen and pelvis noted. Significant narrowing of the distal abdominal aorta is evident. Circumferential wall thickening of the cecum and ascending colon is noted. Mild anasarca is present. No enlarged abdominal or pelvic lymph nodes. No extra luminal gas. No significant ascites. Cadet catheter is present within the urinary bladder. Gas within the urinary bladder is noted. Circumferential wall thickening of the urinary bladder is evident. Significant disc space narrowing at L5-S1 noted. Facet joint degenerative changes of the lumbar spine noted. Impression: Moderate to large bilateral pleural effusions with pulmonary interstitial infiltrates and scattered bibasilar atelectatic consolidation. Mild pulmonary vascular congestion. Circumferential wall thickening of the cecum and ascending colon. Correlate for underlying colitis including ischemic etiology. No significant surrounding stranding noted however. No abscess. Advanced atherosclerotic calcific involvement of the abdominal aorta and its branches. Stenosis of the distal abdominal aorta. Urinary bladder wall thickening which may represent neurogenic bladder or chronic cystitis. PQRS Compliance Statement: One or more of the following individualized dose reduction techniques were utilized for this examination: 1. Automated exposure control 2. Adjustment of the mA and/or kV according to patient size 3. Use of iterative reconstruction technique Electronically signed by: Aleksey Mckeon MD (12/01/2018 4:38 PM) [facility]
[2018-12-01 18:09] LABS: HEMATOCRIT 22.8 % (36.0-47.0); HEMOGLOBIN 7.2 g/dL (12.0-15.5); RED BLOOD COUNT 2.9 x10^6/uL (3.50-5.40); RED CELL DISTRIBUTION WIDTH 22.8 % (11.5-14.5); WHITE BLOOD COUNT 7.3 x10^3/uL (4.0-11.0)
[2018-12-01 18:27] LABS: ALBUMIN 1.9 g/dL (3.4-5.0); ALBUMIN/GLOBULIN RATIO 0.6 (1.0-1.7); CALCIUM 7.5 mg/dL (8.5-10.1); CREATININE 2.3 mg/dL (0.6-1.0); POTASSIUM 3.6 mmol/L (3.5-5.1); TOTAL BILIRUBIN 0.5 mg/dL (0.2-1.0)
--- NOTE | 2018-12-01 20:24 | PDOC ---
PROGRESS NOTES Subjective Subjective Intubated and sedated Objective Objective Vital Signs Date Time Temp Pulse Resp B/P (MAP) Pulse Ox O2 Delivery O2 Flow Rate FiO2 12/01/18 18:00 71 12 120/49 (72) 95 Ventilator 12/01/18 17:00 98.9 98.9 12/01/18 01:52 15.0 Intake and Output 12/01/18 07:00 Intake Total 3310.02 ml Output Total 690 ml Balance 2620.02 ml IV Total 3310.02 ml Output Urine Total 690 ml Physical Exam Abdomen: Normal bowel sounds Heart: Regular rate, Other (IRREGULAR) Extremities: No clubbing, No cyanosis General: Other (INTUBATED) HEENT: Atraumatic Lungs: Other Psych/Mental Status: Other (SEDATED) Skin: No breakdown Assessment Assessment 1. Acute respiratory failure with possible aspiration: intubated with vent. pulmonary following 2. UTI sepsis: ID following 3. DKA with severe lactic acidosis 4. Severe MANDIE with possible ATN: dehydrated. 5. Metabolic/hypoxic encephalopathy 6. NSTEMI: multifactorial including suspected ischemia. 2D echo showed normal LVF. Ischemic workup could be considered once active issues resolve 7. Possible recurrence of breast CA: reported lumps on breasts with mamogram due tomorrow with hx of breast CA. 8. Hx of GI bleed: possible AVMs in colon in the past per GI 9. Hx of PAFIB: remains on SR Was on amiodarone in the past DC'd due to severe transaminitis. Poor AC candidate 10.. CAD s/p PCI/stent LAD/RCA: cardiac cath 03/2017 showed patent stents 12. DM2: per IM Plan Plan of Care Problems Medical Problems: (1) CHF (congestive heart failure) Status: Acute (2) Renal failure Status: Acute (3) Respiratory failure Status: Acute (4) Septic shock Status: Acute (5) UTI (urinary tract infection) Status: Acute Comment Review of Relevant I have reviewed the following items brooke (where applicable) has been applied. Labs Laboratory Tests Test 11/30/18 20:38 11/30/18 21:05 12/01/18 00:01 12/01/18 05:05 Glucose (Fingerstick) 139 mg/dL (70-99) 119 mg/dL (70-99) 161 mg/dL (70-99) Sodium Level 145 mmol/L (136-145) Potassium Level 3.1 mmol/L (3.5-5.1) Chloride Level 103 mmol/L (98-107) Carbon Dioxide Level 36 mmol/L (21-32) Anion Gap 6 (6-14) Blood Urea Nitrogen 29 mg/dL (7-20) Creatinine 2.4 mg/dL (0.6-1.0) Estimated GFR (Cockcroft-Gault) 20.0 Glucose Level 151 mg/dL (70-99) Calcium Level 8.4 mg/dL (8.5-10.1) Phosphorus Level 1.1 mg/dL (2.6-4.7) Magnesium Level 2.1 mg/dL (1.8-2.4) Test 12/01/18 05:12 12/01/18 08:00 12/01/18 09:45 12/01/18 17:55 Glucose (Fingerstick) 145 mg/dL (70-99) O2 Saturation 97 % (92-99) 96 % (92-99) Arterial Blood pH 7.66 (7.35-7.45) 7.46 (7.35-7.45) Arterial Blood pCO2 at Patient Temp 28 mmHg (35-46) 49 mmHg (35-46) Arterial Blood pO2 at Patient Temp 83 mmHg (65-108) 94 mmHg (65-108) Arterial Blood HCO3 31 mmol/L (21-28) 34 mmol/L (21-28) Arterial Blood Base Excess 10 mmol/L (-3-3) 9 mmol/L (-3-3) FiO2 50 50 White Blood Count 7.3 x10^3/uL (4.0-11.0) Red Blood Count 2.90 x10^6/uL (3.50-5.40) Hemoglobin 7.2 g/dL (12.0-15.5) Hematocrit 22.8 % (36.0-47.0) Mean Corpuscular Volume 79 fL (79-100) Mean Corpuscular Hemoglobin 25 pg (25-35) Mean Corpuscular Hemoglobin Concent 32 g/dL (31-37) Red Cell Distribution Width 22.8 % (11.5-14.5) Platelet Count 137 x10^3/uL (140-400) Sodium Level 145 mmol/L (136-145) Potassium Level 3.6 mmol/L (3.5-5.1) Chloride Level 103 mmol/L (98-107) Carbon Dioxide Level 38 mmol/L (21-32) Anion Gap 4 (6-14) Blood Urea Nitrogen 31 mg/dL (7-20) Creatinine 2.3 mg/dL (0.6-1.0) Estimated GFR (Cockcroft-Gault) 21.0 BUN/Creatinine Ratio 13 (6-20) Glucose Level 157 mg/dL (70-99) Calcium Level 7.5 mg/dL (8.5-10.1) Phosphorus Level 5.0 mg/dL (2.6-4.7) Magnesium Level 2.0 mg/dL (1.8-2.4) Total Bilirubin 0.5 mg/dL (0.2-1.0) Aspartate Amino Transf (AST/SGOT) 1416 U/L (15-37) Alanine Aminotransferase (ALT/SGPT) 1097 U/L (14-59) Alkaline Phosphatase 78 U/L (46-116) Total Protein 5.0 g/dL (6.4-8.2) Albumin 1.9 g/dL (3.4-5.0) Albumin/Globulin Ratio 0.6 (1.0-1.7) Microbiology 11/30/18 Blood Culture - Final, Complete Medications Current Medications Albumin Human 500 ml @ 125 mls/hr 1X ONCE IV Last administered on 12/01/18at 10:57; Start 12/01/18 at 11:00; Stop 12/01/18 at 14:59; Status DC Albumin Human 500 ml @ As Directed STK-MED ONCE IV ; Start 12/01/18 at 10:50; Stop 12/01/18 at 10:50; Status DC Daptomycin 320 mg/ Sodium Chloride 50 ml @ 100 mls/hr Q24H IV Last administered on 12/01/18at 10:45; Start 12/01/18 at 10:00 Famotidine (Pepcid Vial) 20 mg QHS IVP ; Start 12/01/18 at 21:00 Furosemide (Lasix) 40 mg 1X ONCE IVP Last administered on 11/30/18at 21:55; Start 11/30/18 at 22:00; Stop 11/30/18 at 22:01; Status DC Heparin Sodium (Porcine) (Heparin Sodium) 5,000 unit Q8HRS SQ ; Start 11/30/18 at 22:00; Status UNV Insulin Glargine (Lantus Syringe) 20 unit Q12HR SQ Last administered on 12/01/18at 09:10; Start 11/30/18 at 21:00 Potassium Phosphate 10 mmol/ Dextrose 103.3333 ml @ 51.667 m... Q2H IV Last administered on 12/01/18at 15:15; Start 12/01/18 at 11:30; Stop 12/01/18 at 17:29; Status DC Senna/Docusate Sodium (Senna Plus) 1 tab BID PO Last administered on 12/01/18at 09:09; Start 11/30/18 at 21:00 Sodium Phosphate 20 mmol/Dextrose 256.6667 ml @ 64.167 m... 1X ONCE IV ; Start 12/01/18 at 11:45; Stop 12/01/18 at 15:44; Status UNV Vitals/I & O Vital Sign - Last 24 Hours 11/30/18 11/30/18 11/30/18 11/30/18 21:00 22:00 23:00 23:22 Pulse 72 74 74 Resp 20 22 23 B/P (MAP) 119/54 (75) 114/47 (69) 132/49 (76) Pulse Ox 99 98 98 97 O2 Delivery Ventilator Ventilator Ventilator Ventilator 11/30/18 12/01/18 12/01/18 12/01/18 23:59 00:00 01:00 01:22 Temp 98.5 98.5 Pulse 70 79 Resp 20 18 B/P (MAP) 114/58 (76) 135/62 (86) Pulse Ox 97 99 98 O2 Delivery Mechanical Ventilator Ventilator Ventilator Ventilator O2 Flow Rate 15.0 12/01/18 12/01/18 12/01/18 12/01/18 01:43 01:52 02:00 03:00 Pulse 80 78 Resp 20 20 B/P (MAP) 125/58 (80) 115/57 (76) Pulse Ox 97 98 99 99 O2 Delivery Ventilator Ventilator Ventilator Ventilator O2 Flow Rate 15.0 12/01/18 12/01/18 12/01/18 12/01/18 03:40 04:00 04:00 05:00 Temp 98.2 98.2 Pulse 80 76 Resp 20 20 B/P (MAP) 115/58 (77) 120/54 (76) Pulse Ox 97 99 99 O2 Delivery Ventilator Ventilator Mechanical Ventilator Ventilator 12/01/18 12/01/18 12/01/18 12/01/18 05:38 06:00 07:00 08:00 Temp 98.2 98.2 Pulse 76 76 76 Resp 20 20 20 B/P (MAP) 92/45 (61) 129/50 (76) 159/61 (93) Pulse Ox 99 100 96 96 O2 Delivery Ventilator Ventilator Ventilator Ventilator 12/01/18 12/01/18 12/01/18 12/01/18 08:00 08:09 09:00 09:04 Pulse 74 Resp 12 B/P (MAP) 155/53 (87) Pulse Ox 100 95 100 O2 Delivery Mechanical Ventilator Ventilator Ventilator Ventilator 12/01/18 12/01/18 12/01/18 12/01/18 10:00 10:30 10:45 11:00 Pulse 72 68 70 71 Resp 12 12 12 12 B/P (MAP) 126/58 (80) 71/34 (46) 77/36 (50) 84/40 (55) Pulse Ox 97 95 96 100 O2 Delivery Ventilator Ventilator Ventilator Ventilator 12/01/18 12/01/18 12/01/18 12/01/18 11:30 11:39 12:00 12:00 Temp 98.7 98.7 Pulse 68 68 Resp 12 12 B/P (MAP) 104/44 (64) 109/42 (64) Pulse Ox 100 100 98 O2 Delivery Ventilator Ventilator Ventilator Mechanical Ventilator 12/01/18 12/01/18 12/01/18 12/01/18 12:27 13:00 13:05 14:00 Pulse 73 73 Resp 15 12 12 12 B/P (MAP) 122/76 (91) 120/50 (73) Pulse Ox 100 98 98 99 O2 Delivery Ventilator Ventilator Ventilator Ventilator 12/01/18 12/01/18 12/01/18 12/01/18 15:00 15:16 16:00 16:00 Pulse 71 71 Resp 12 12 B/P (MAP) 114/47 (69) 98/42 (60) Pulse Ox 98 99 98 O2 Delivery Ventilator Ventilator Mechanical Ventilator Ventilator 12/01/18 12/01/18 12/01/18 17:00 17:28 18:00 Temp 98.9 98.9 Pulse 72 71 Resp 12 12 B/P (MAP) 100/46 (64) 120/49 (72) Pulse Ox 95 94 95 O2 Delivery Ventilator Ventilator Ventilator Intake and Output 11/30/18 11/30/18 12/01/18 15:00 23:00 07:00 Intake Total 2300 ml 805.02 ml 205 ml Output Total 370 ml 320 ml Balance 2300 ml 435.02 ml -115 ml RAND GOLDEN MD Dec 01, 2018 20:24
[2018-12-01] MEDS: FAMOTIDINE 20 MG/2 ML VIAL IVP SCH (21:37)
[2018-12-02] VITALS (27 sets, daily range): BP systolic 66–177; BP diastolic 34–110
--- NOTE | 2018-12-02 06:00 | NUR ---
Patient's daughter, Ashley, at bedside states that she and her sister Kimberley where wanting patient to be transferred to [facility]. States she was unable to go to [facility] initially due to unresponsiveness and would like for her to go where there. Notified Dr. Fox of family request and he states they will have to proceed with it in the morning. Will continue to monitor.
[2018-12-02] MEDS: PIPERACILLIN/TAZOBACTAM 3.375 GM in IV NORMAL SALINE 50ML 50 ML IV SCH ×3 (06:14→17:35)
[2018-12-02 06:28] LABS: BASO % 0 % (0-3); EOS # 0.1 x10^3/uL (0.0-0.7); EOS % 2 % (0-3); HEMATOCRIT 23.9 % (36.0-47.0); HEMOGLOBIN 7.5 g/dL (12.0-15.5); LYMPH # 0.5 x10^3/uL (1.0-4.8); LYMPH % 7 % (24-48); MEAN CORPUSCULAR HEMOGLOBIN 25 pg (25-35); MEAN CORPUSCULAR HGB CONC 32 g/dL (31-37); MEAN CORPUSCULAR VOLUME 80 fL (79-100); MONO # 0.4 x10^3/uL (0.0-1.1); MONO % 6 % (0-9); NEUT # 5.3 x10^3/uL (1.8-7.7); NEUT % 84 % (31-73); PLATELET COUNT 133 x10^3/uL (140-400); RED CELL DISTRIBUTION WIDTH 22.8 % (11.5-14.5); WHITE BLOOD COUNT 6.3 x10^3/uL (4.0-11.0)
[2018-12-02 06:43] LABS: PROTHROMBIN TIME PATIENT 23.7 SEC (11.7-14.0)
[2018-12-02 06:47] LABS: CALCIUM 7.7 mg/dL (8.5-10.1); CREATININE 2.1 mg/dL (0.6-1.0); GFR 23.3; POTASSIUM 3.3 mmol/L (3.5-5.1)
[2018-12-02 06:50] LABS: MAGNESIUM 1.8 mg/dL (1.8-2.4); PHOSPHORUS 4.9 mg/dL (2.6-4.7)
--- NOTE | 2018-12-02 06:57 | PDOC ---
Infectious Disease Note Subjective Subjective pt is intubated on vent ROS ROS no n/v/d/sob Vital Sign Vital Signs Vital Signs Date Time Temp Pulse Resp B/P (MAP) Pulse Ox O2 Delivery O2 Flow Rate FiO2 12/02/18 05:00 119 12 99/65 (76) 98 Ventilator 12/02/18 04:00 98.7 98.7 Physical Exam PHYSICAL EXAM GENERAL: Sedated, orally intubated female, not in distress. VITAL SIGNS: stable, on vasopressors HEENT: Both pupils are round and reacting. No conjunctival lesion. Mouth: Orally cannot be visualized, orally intubated. NECK: Supple, no JVP, no lymphadenopathy. LUNGS: Decreased breath sounds bilaterally. HEART: S1, S2 regular. No gallop or murmur. ABDOMEN: Soft, nontender. EXTREMITIES: Chronic venous insufficiency changes present. There is no acute cellulitis or skin breakdown. Sacrococcygeal wound appears clean at least stage 2. NEUROLOGIC: The patient is currently sedated, unable to process specialist, although had been moving all the extremities before she was intubated and sedated. Labs Lab Laboratory Tests Test 12/01/18 08:00 12/01/18 09:45 12/01/18 17:55 12/01/18 21:44 O2 Saturation 97 % (92-99) 96 % (92-99) Arterial Blood pH 7.66 (7.35-7.45) 7.46 (7.35-7.45) Arterial Blood pCO2 at Patient Temp 28 mmHg (35-46) 49 mmHg (35-46) Arterial Blood pO2 at Patient Temp 83 mmHg (65-108) 94 mmHg (65-108) Arterial Blood HCO3 31 mmol/L (21-28) 34 mmol/L (21-28) Arterial Blood Base Excess 10 mmol/L (-3-3) 9 mmol/L (-3-3) FiO2 50 50 White Blood Count 7.3 x10^3/uL (4.0-11.0) Red Blood Count 2.90 x10^6/uL (3.50-5.40) Hemoglobin 7.2 g/dL (12.0-15.5) Hematocrit 22.8 % (36.0-47.0) Mean Corpuscular Volume 79 fL (79-100) Mean Corpuscular Hemoglobin 25 pg (25-35) Mean Corpuscular Hemoglobin Concent 32 g/dL (31-37) Red Cell Distribution Width 22.8 % (11.5-14.5) Platelet Count 137 x10^3/uL (140-400) Sodium Level 145 mmol/L (136-145) Potassium Level 3.6 mmol/L (3.5-5.1) Chloride Level 103 mmol/L (98-107) Carbon Dioxide Level 38 mmol/L (21-32) Anion Gap 4 (6-14) Blood Urea Nitrogen 31 mg/dL (7-20) Creatinine 2.3 mg/dL (0.6-1.0) Estimated GFR (Cockcroft-Gault) 21.0 BUN/Creatinine Ratio 13 (6-20) Glucose Level 157 mg/dL (70-99) Calcium Level 7.5 mg/dL (8.5-10.1) Phosphorus Level 5.0 mg/dL (2.6-4.7) Magnesium Level 2.0 mg/dL (1.8-2.4) Total Bilirubin 0.5 mg/dL (0.2-1.0) Aspartate Amino Transf (AST/SGOT) 1416 U/L (15-37) Alanine Aminotransferase (ALT/SGPT) 1097 U/L (14-59) Alkaline Phosphatase 78 U/L (46-116) Total Protein 5.0 g/dL (6.4-8.2) Albumin 1.9 g/dL (3.4-5.0) Albumin/Globulin Ratio 0.6 (1.0-1.7) Glucose (Fingerstick) 128 mg/dL (70-99) Test 12/02/18 06:15 White Blood Count 6.3 x10^3/uL (4.0-11.0) Red Blood Count 3.00 x10^6/uL (3.50-5.40) Hemoglobin 7.5 g/dL (12.0-15.5) Hematocrit 23.9 % (36.0-47.0) Mean Corpuscular Volume 80 fL (79-100) Mean Corpuscular Hemoglobin 25 pg (25-35) Mean Corpuscular Hemoglobin Concent 32 g/dL (31-37) Red Cell Distribution Width 22.8 % (11.5-14.5) Platelet Count 133 x10^3/uL (140-400) Neutrophils (%) (Auto) 84 % (31-73) Lymphocytes (%) (Auto) 7 % (24-48) Monocytes (%) (Auto) 6 % (0-9) Eosinophils (%) (Auto) 2 % (0-3) Basophils (%) (Auto) 0 % (0-3) Neutrophils # (Auto) 5.3 x10^3/uL (1.8-7.7) Lymphocytes # (Auto) 0.5 x10^3/uL (1.0-4.8) Monocytes # (Auto) 0.4 x10^3/uL (0.0-1.1) Eosinophils # (Auto) 0.1 x10^3/uL (0.0-0.7) Basophils # (Auto) 0.0 x10^3/uL (0.0-0.2) Micro BLOOD CULTURE Final AMENDED REPORT: 4 OF 4 BOTTLES ARE NOW POSITIVE FOR GRAM POSITIVE COCCI IN CLUSTERS. (1 IN 4 FOR GRAM NEGATIVE RODS). GRAM POSITIVE COCCI IN CLUSTERS IN 3 OF 4 BOTTLES AND GRAM NEGATIVE RODS IN 1 OF 4 BOTTLES (2 SETS COLLECTED). CALLED TO OSWALD COTTON IN ICU 12/01/18 AT 0908 BY [employer]. CULTURES HAVE BEEN SENT TO [employer] FOR FURTHER IDENTIFICATION. * This is an amended result. * A prior result that was reported as final has been changed. BLOOD CULTURE Final AMENDED REPORT: 4 OF 4 BOTTLES ARE NOW POSITIVE FOR GRAM POSITIVE COCCI IN CLUSTERS. GRAM POSITIVE COCCI IN CLUSTERS IN 3 OF 4 BOTTLES (2 SETS DRAWN). CALLED TO OSWALD COTTON IN ICU 12/01/18 AT 0908 BY [facility] [employer]. CULTURES HAVE BEEN SENT TO [employer] FOR FURTHER IDENTIFICATION. * This is an amended result. * A prior result that was reported as final has been changed. Objective Assessment 1. Lactic acidosis. sepsis 2. Suspected aspiration pneumonia. 3. Congestive heart failure. 4. Troponin leak. 5. Abnormal urinalysis/urinary tract infection. 6. Hypoxic respiratory failure. 7. Diabetes. 8. Sacrococcygeal decubitus. 9 BC + G + cocci and G neg alysia 10 Ischemic colitis vs ulcerated tumor Plan Plan of Care CT chest, abd and pelvis : Moderate to large bilateral pleural effusions with pulmonary interstitial infiltrates and scattered bibasilar atelectatic consolidation. Mild pulmonary vascular congestion. Circumferential wall thickening of the cecum and ascending colon. Correlate for underlying colitis including ischemic etiology. No significant surrounding stranding noted however. No abscess. Advanced atherosclerotic calcific involvement of the abdominal aorta and its branches. Stenosis of the distal abdominal aorta. Urinary bladder wall thickening which may represent neurogenic bladder or chronic cystitis. cont Dapto and Zosyn supportive care surgery consult for possible ischemic colitis vs tumor , daughter does not remember her last colonoscopy daughter at bedside, d/w her in detail, she wants her to be transferred to 35 min spent in total care URIEL PEREZ MD Dec 02, 2018 06:57
--- NOTE | 2018-12-02 07:48 | RAD ---
CHEST AP ONLY Clinical Indication: Intubated Comparison: 11/30/2018 Portable Chest X-ray Exam. Findings: Semiupright portable frontal view of the chest was obtained. Endotracheal tube is in place. Left internal jugular catheter in place. Enteric tube is noted. The cardiomediastinal silhouette is normal. On a vascular structure congestion and interstitial edema is evident.. There is no pneumothorax. Bilateral pleural effusions are present greater on the right. No acute bone abnormality. IMPRESSION: Perivascular congestion and interstitial edema. Mildly improved pulmonary aeration Electronically signed by: Aleksey Mckeon MD (12/02/2018 7:46 AM) [facility]
[2018-12-02] MEDS ORDERED: NOREPINEPHRIN 8MG/250ML PREMIX 250 ML IV PRN (08:15)
[2018-12-02] MEDS ORDERED: MAGNESIUM SULFATE 2GM 50 ML IV ONE (08:15)
[2018-12-02] MEDS: DAPTOmycin (GENERIC) IVPB 320 MG in IV NORMAL SALINE 50ML 50 ML IV SCH (08:39)
[2018-12-02] MEDS: POTASSIUM CHL 20MEQ PREMIX 50 ML IV SCH ×2 (08:39→09:42)
[2018-12-02] MEDS: INSULIN GLARGINE SYRINGE. SQ SCH ×2 (08:53→20:40)
[2018-12-02] MEDS: SENNOSIDES/DOCUSATE 8.6/50MG TABLET. PO SCH ×2 (08:57→20:39)
[2018-12-02 09:21] LABS: BASE EXCESS ABG 7 mmol/L (-3-3); HCO3 ABG 32 mmol/L (21-28); PCO2 ABG 53 mmHg (35-46); PO2 ABG 87 mmHg (65-108); SAT O2 ABG 95 % (92-99)
[2018-12-02 09:29] LABS: FIO2 ABG 40
[2018-12-02] MEDS ORDERED: AMIODARONE 150 MG in IV DEXTROSE 5% 100ML 100 ML IV ONE (09:45)
--- NOTE | 2018-12-02 11:27 | PDOC ---
Renal-Progress Notes Subjective Notes Notes INTUBATED History of Present Illness Hx of present illness NO CHANGES Vitals Vitals Vital Signs Date Time Temp Pulse Resp B/P (MAP) Pulse Ox O2 Delivery O2 Flow Rate FiO2 12/02/18 11:08 99 Ventilator 12/02/18 10:30 111 12 114/53 (73) 12/02/18 07:00 98.4 98.4 Weight Weight [ ] I.O. Intake and Output Intake and Output 12/02/18 07:00 Intake Total 1187.9799 ml Output Total 1470 ml Balance -282.0201 ml IV Total 1187.9799 ml Output Urine Total 1220 ml Gastric Drainage Total 250 ml Labs Labs Laboratory Tests Test 12/01/18 17:55 12/01/18 21:44 12/02/18 06:15 12/02/18 09:10 White Blood Count 7.3 x10^3/uL (4.0-11.0) 6.3 x10^3/uL (4.0-11.0) Red Blood Count 2.90 x10^6/uL (3.50-5.40) 3.00 x10^6/uL (3.50-5.40) Hemoglobin 7.2 g/dL (12.0-15.5) 7.5 g/dL (12.0-15.5) Hematocrit 22.8 % (36.0-47.0) 23.9 % (36.0-47.0) Mean Corpuscular Volume 79 fL (79-100) 80 fL (79-100) Mean Corpuscular Hemoglobin 25 pg (25-35) 25 pg (25-35) Mean Corpuscular Hemoglobin Concent 32 g/dL (31-37) 32 g/dL (31-37) Red Cell Distribution Width 22.8 % (11.5-14.5) 22.8 % (11.5-14.5) Platelet Count 137 x10^3/uL (140-400) 133 x10^3/uL (140-400) Sodium Level 145 mmol/L (136-145) 146 mmol/L (136-145) Potassium Level 3.6 mmol/L (3.5-5.1) 3.3 mmol/L (3.5-5.1) Chloride Level 103 mmol/L (98-107) 103 mmol/L (98-107) Carbon Dioxide Level 38 mmol/L (21-32) 38 mmol/L (21-32) Anion Gap 4 (6-14) 5 (6-14) Blood Urea Nitrogen 31 mg/dL (7-20) 31 mg/dL (7-20) Creatinine 2.3 mg/dL (0.6-1.0) 2.1 mg/dL (0.6-1.0) Estimated GFR (Cockcroft-Gault) 21.0 23.3 BUN/Creatinine Ratio 13 (6-20) Glucose Level 157 mg/dL (70-99) 143 mg/dL (70-99) Calcium Level 7.5 mg/dL (8.5-10.1) 7.7 mg/dL (8.5-10.1) Phosphorus Level 5.0 mg/dL (2.6-4.7) 4.9 mg/dL (2.6-4.7) Magnesium Level 2.0 mg/dL (1.8-2.4) 1.8 mg/dL (1.8-2.4) Total Bilirubin 0.5 mg/dL (0.2-1.0) Aspartate Amino Transf (AST/SGOT) 1416 U/L (15-37) Alanine Aminotransferase (ALT/SGPT) 1097 U/L (14-59) Alkaline Phosphatase 78 U/L (46-116) Total Protein 5.0 g/dL (6.4-8.2) Albumin 1.9 g/dL (3.4-5.0) Albumin/Globulin Ratio 0.6 (1.0-1.7) Glucose (Fingerstick) 128 mg/dL (70-99) Neutrophils (%) (Auto) 84 % (31-73) Lymphocytes (%) (Auto) 7 % (24-48) Monocytes (%) (Auto) 6 % (0-9) Eosinophils (%) (Auto) 2 % (0-3) Basophils (%) (Auto) 0 % (0-3) Neutrophils # (Auto) 5.3 x10^3/uL (1.8-7.7) Lymphocytes # (Auto) 0.5 x10^3/uL (1.0-4.8) Monocytes # (Auto) 0.4 x10^3/uL (0.0-1.1) Eosinophils # (Auto) 0.1 x10^3/uL (0.0-0.7) Basophils # (Auto) 0.0 x10^3/uL (0.0-0.2) Prothrombin Time 23.7 SEC (11.7-14.0) Prothromb Time International Ratio 2.1 (0.8-1.1) O2 Saturation 95 % (92-99) Arterial Blood pH 7.40 (7.35-7.45) Arterial Blood pCO2 at Patient Temp 53 mmHg (35-46) Arterial Blood pO2 at Patient Temp 87 mmHg (65-108) Arterial Blood HCO3 32 mmol/L (21-28) Arterial Blood Base Excess 7 mmol/L (-3-3) FiO2 40 Test 12/02/18 09:23 Glucose (Fingerstick) 139 mg/dL (70-99) Micro Micro Microbiology 11/30/18 Blood Culture - Final, Complete Physical Exam General Appearance: no apparent distress Skin: warm Respiratory: ventilator (Mode:A/C), decreased breath sounds Heart: S1S2 Abdomen: soft, rectal tube Genitourinary: bladder flat Extremities: pulses present Neurology: other (SEDATED) Assessment Assessment IMP MANDIE - CR IMPROVED TO 2.1 HYPOKALEMIA PROB SEPSIS URINARY TRACT INFECTION HYPOTENSION ACUTE RESP FAILURE AFIB AND ANTICOAGULATION DM II-POORLY CONTROLLED MET ACIDOSIS PLAN CONTROL BG PRESSORS ANTIBIOTICS ECHOCARDIOGRAM NL LV FXN CORRECT K WILL FOLLOW D/W MENA DAVENPORT MD Dec 02, 2018 11:27
--- NOTE | 2018-12-02 11:40 | PDOC ---
CARDIO Progress Notes Date and Time Date of Service 12/02/18 Time of Evaluation 1110 Subjective Subjective: No Chest Pain, No shortness of breath Vitals Vitals Vital Signs Date Time Temp Pulse Resp B/P (MAP) Pulse Ox O2 Delivery O2 Flow Rate FiO2 12/02/18 11:08 99 Ventilator 12/02/18 10:30 111 12 114/53 (73) 12/02/18 07:00 98.4 98.4 Weight Weight [ ] Input and Output Intake and Output Intake and Output 12/02/18 07:00 Intake Total 1187.9799 ml Output Total 1470 ml Balance -282.0201 ml IV Total 1187.9799 ml Output Urine Total 1220 ml Gastric Drainage Total 250 ml Laboratory Labs Laboratory Tests Test 12/01/18 17:55 12/01/18 21:44 12/02/18 06:15 12/02/18 09:10 White Blood Count 7.3 x10^3/uL (4.0-11.0) 6.3 x10^3/uL (4.0-11.0) Red Blood Count 2.90 x10^6/uL (3.50-5.40) 3.00 x10^6/uL (3.50-5.40) Hemoglobin 7.2 g/dL (12.0-15.5) 7.5 g/dL (12.0-15.5) Hematocrit 22.8 % (36.0-47.0) 23.9 % (36.0-47.0) Mean Corpuscular Volume 79 fL (79-100) 80 fL (79-100) Mean Corpuscular Hemoglobin 25 pg (25-35) 25 pg (25-35) Mean Corpuscular Hemoglobin Concent 32 g/dL (31-37) 32 g/dL (31-37) Red Cell Distribution Width 22.8 % (11.5-14.5) 22.8 % (11.5-14.5) Platelet Count 137 x10^3/uL (140-400) 133 x10^3/uL (140-400) Sodium Level 145 mmol/L (136-145) 146 mmol/L (136-145) Potassium Level 3.6 mmol/L (3.5-5.1) 3.3 mmol/L (3.5-5.1) Chloride Level 103 mmol/L (98-107) 103 mmol/L (98-107) Carbon Dioxide Level 38 mmol/L (21-32) 38 mmol/L (21-32) Anion Gap 4 (6-14) 5 (6-14) Blood Urea Nitrogen 31 mg/dL (7-20) 31 mg/dL (7-20) Creatinine 2.3 mg/dL (0.6-1.0) 2.1 mg/dL (0.6-1.0) Estimated GFR (Cockcroft-Gault) 21.0 23.3 BUN/Creatinine Ratio 13 (6-20) Glucose Level 157 mg/dL (70-99) 143 mg/dL (70-99) Calcium Level 7.5 mg/dL (8.5-10.1) 7.7 mg/dL (8.5-10.1) Phosphorus Level 5.0 mg/dL (2.6-4.7) 4.9 mg/dL (2.6-4.7) Magnesium Level 2.0 mg/dL (1.8-2.4) 1.8 mg/dL (1.8-2.4) Total Bilirubin 0.5 mg/dL (0.2-1.0) Aspartate Amino Transf (AST/SGOT) 1416 U/L (15-37) Alanine Aminotransferase (ALT/SGPT) 1097 U/L (14-59) Alkaline Phosphatase 78 U/L (46-116) Total Protein 5.0 g/dL (6.4-8.2) Albumin 1.9 g/dL (3.4-5.0) Albumin/Globulin Ratio 0.6 (1.0-1.7) Glucose (Fingerstick) 128 mg/dL (70-99) Neutrophils (%) (Auto) 84 % (31-73) Lymphocytes (%) (Auto) 7 % (24-48) Monocytes (%) (Auto) 6 % (0-9) Eosinophils (%) (Auto) 2 % (0-3) Basophils (%) (Auto) 0 % (0-3) Neutrophils # (Auto) 5.3 x10^3/uL (1.8-7.7) Lymphocytes # (Auto) 0.5 x10^3/uL (1.0-4.8) Monocytes # (Auto) 0.4 x10^3/uL (0.0-1.1) Eosinophils # (Auto) 0.1 x10^3/uL (0.0-0.7) Basophils # (Auto) 0.0 x10^3/uL (0.0-0.2) Prothrombin Time 23.7 SEC (11.7-14.0) Prothromb Time International Ratio 2.1 (0.8-1.1) O2 Saturation 95 % (92-99) Arterial Blood pH 7.40 (7.35-7.45) Arterial Blood pCO2 at Patient Temp 53 mmHg (35-46) Arterial Blood pO2 at Patient Temp 87 mmHg (65-108) Arterial Blood HCO3 32 mmol/L (21-28) Arterial Blood Base Excess 7 mmol/L (-3-3) FiO2 40 Test 12/02/18 09:23 Glucose (Fingerstick) 139 mg/dL (70-99) Microbiology Micro Microbiology 11/30/18 Blood Culture - Final, Complete Physical Exam HEENT: Neck Supple W Full Motion Chest: Symmetric LUNGS: Other (intubated with mech ventilation) Heart: S1S2, irregularly irregular (rate 115-130 ) Abdomen: Soft N/T Extremities: Other (trace bilateral LE edema ) Neurology: other (off sedation) Assessment Assessment 1. Acute respiratory failure with possible aspiration: intubated with vent. pulmonary following 2. UTI sepsis: ID following 3. DKA with severe lactic acidosis 4. Severe MANDIE with possible ATN: dehydrated. 5. Metabolic/hypoxic encephalopathy 6. NSTEMI: multifactorial including suspected ischemia. 2D echo showed normal LVF. Ischemic workup could be considered once active issues resolve 7. Possible recurrence of breast CA: reported lumps on breasts with mamogram due tomorrow with hx of breast CA. 8. Hx of GI bleed: possible AVMs in colon in the past per GI 9. Hx of PAFIB; convert to AFIB with RVR early this morning. Amiodarone bolus administered, but remains in AFIB with elevated rate. 10. CAD s/p PCI/stent LAD/RCA: cardiac cath 03/2017 showed patent stents 12. DM2: per IM 13. Hypotensive requiring low-dose pressor support 14. Transaminitis with coagulopathy Recommendations Poor candidate for Amiodarone presently given elevated LFTs. Dig IV x 1 now. Add low-dose metoprolol when BP consistently adequate. No need for OAC as INR is 2.1 Supportive care MICHEAL DORAN APRN Dec 02, 2018 11:40
--- NOTE | 2018-12-02 11:52 | PDOC ---
[employer] PROGRESS NOTE Chief Complaint Chief Complaint Respiratory failure Renal Failure Sepsis UTI History of Present Illness History of Present Illness 12/02/18 Pt was seen and examined in ICU Reviewed chart and labs Discussed with [facility] transfer RN Pt intubated Vent Settings (AC/12/450/40% 5.0 PEEP) I talked extensively with her daughter about her concerns . The daughter wanted to transfer the pt but we reassured her that the pt is getting the best care here in the ICU. Nephrology was in the room with us. CROW SEPULVEDA 12/01/18 Pt was seen and examined in the ICU Pt is intubated with Vent Settings: (AC/12/450/150% 5 PEEP) Echo was being performed in room during exam CROW SEPULVEDA Vitals/I&O Vitals/I&O: Vital Signs Date Time Temp Pulse Resp B/P (MAP) Pulse Ox O2 Delivery O2 Flow Rate FiO2 12/02/18 11:08 99 Ventilator 12/02/18 10:30 111 12 114/53 (73) 12/02/18 07:00 98.4 98.4 I & O 12/01/18 12/01/18 12/02/18 14:59 22:59 06:59 Intake Total 753.3333 ml 350.0466 ml 134.6 ml Output Total 500 ml 535 ml 495 ml Balance 253.3333 ml -184.9534 ml -360.4 ml Physical Exam Physical Exam: GENERAL: Sedated, orally intubated female, not in distress. VITAL SIGNS: stable, on vasopressors HEENT: Both pupils are round and reacting. No conjunctival lesion. Mouth: Orally cannot be visualized, orally intubated. NECK: Supple, no JVP, no lymphadenopathy. LUNGS: Decreased breath sounds bilaterally. HEART: S1, S2 regular. No gallop or murmur. ABDOMEN: Soft, nontender. EXTREMITIES: Chronic venous insufficiency changes present. There is no acute cellulitis or skin breakdown. Sacrococcygeal wound appears clean at least stage 2. NEUROLOGIC: The patient is currently sedated, unable to desk maker, although had been moving all the extremities before she was intubated and sedated. General: Other (INTUBATED) Heart: Regular rate, Other (IRREGULAR) Lungs: Other (decrease bs) Abdomen: Normal bowel sounds Extremities: No clubbing, No cyanosis Skin: No breakdown Labs Labs: Laboratory Tests Test 12/01/18 17:55 12/01/18 21:44 12/02/18 06:15 12/02/18 09:10 White Blood Count 7.3 x10^3/uL (4.0-11.0) 6.3 x10^3/uL (4.0-11.0) Red Blood Count 2.90 x10^6/uL (3.50-5.40) 3.00 x10^6/uL (3.50-5.40) Hemoglobin 7.2 g/dL (12.0-15.5) 7.5 g/dL (12.0-15.5) Hematocrit 22.8 % (36.0-47.0) 23.9 % (36.0-47.0) Mean Corpuscular Volume 79 fL (79-100) 80 fL (79-100) Mean Corpuscular Hemoglobin 25 pg (25-35) 25 pg (25-35) Mean Corpuscular Hemoglobin Concent 32 g/dL (31-37) 32 g/dL (31-37) Red Cell Distribution Width 22.8 % (11.5-14.5) 22.8 % (11.5-14.5) Platelet Count 137 x10^3/uL (140-400) 133 x10^3/uL (140-400) Sodium Level 145 mmol/L (136-145) 146 mmol/L (136-145) Potassium Level 3.6 mmol/L (3.5-5.1) 3.3 mmol/L (3.5-5.1) Chloride Level 103 mmol/L (98-107) 103 mmol/L (98-107) Carbon Dioxide Level 38 mmol/L (21-32) 38 mmol/L (21-32) Anion Gap 4 (6-14) 5 (6-14) Blood Urea Nitrogen 31 mg/dL (7-20) 31 mg/dL (7-20) Creatinine 2.3 mg/dL (0.6-1.0) 2.1 mg/dL (0.6-1.0) Estimated GFR (Cockcroft-Gault) 21.0 23.3 BUN/Creatinine Ratio 13 (6-20) Glucose Level 157 mg/dL (70-99) 143 mg/dL (70-99) Calcium Level 7.5 mg/dL (8.5-10.1) 7.7 mg/dL (8.5-10.1) Phosphorus Level 5.0 mg/dL (2.6-4.7) 4.9 mg/dL (2.6-4.7) Magnesium Level 2.0 mg/dL (1.8-2.4) 1.8 mg/dL (1.8-2.4) Total Bilirubin 0.5 mg/dL (0.2-1.0) Aspartate Amino Transf (AST/SGOT) 1416 U/L (15-37) Alanine Aminotransferase (ALT/SGPT) 1097 U/L (14-59) Alkaline Phosphatase 78 U/L (46-116) Total Protein 5.0 g/dL (6.4-8.2) Albumin 1.9 g/dL (3.4-5.0) Albumin/Globulin Ratio 0.6 (1.0-1.7) Glucose (Fingerstick) 128 mg/dL (70-99) Neutrophils (%) (Auto) 84 % (31-73) Lymphocytes (%) (Auto) 7 % (24-48) Monocytes (%) (Auto) 6 % (0-9) Eosinophils (%) (Auto) 2 % (0-3) Basophils (%) (Auto) 0 % (0-3) Neutrophils # (Auto) 5.3 x10^3/uL (1.8-7.7) Lymphocytes # (Auto) 0.5 x10^3/uL (1.0-4.8) Monocytes # (Auto) 0.4 x10^3/uL (0.0-1.1) Eosinophils # (Auto) 0.1 x10^3/uL (0.0-0.7) Basophils # (Auto) 0.0 x10^3/uL (0.0-0.2) Prothrombin Time 23.7 SEC (11.7-14.0) Prothromb Time International Ratio 2.1 (0.8-1.1) O2 Saturation 95 % (92-99) Arterial Blood pH 7.40 (7.35-7.45) Arterial Blood pCO2 at Patient Temp 53 mmHg (35-46) Arterial Blood pO2 at Patient Temp 87 mmHg (65-108) Arterial Blood HCO3 32 mmol/L (21-28) Arterial Blood Base Excess 7 mmol/L (-3-3) FiO2 40 Test 12/02/18 09:23 Glucose (Fingerstick) 139 mg/dL (70-99) Review of Systems Review of Systems: Unable to obtain due to sedation Assessment and Plan Assessmemt and Plan Problems Medical Problems: (1) CHF (congestive heart failure) Status: Acute (2) Renal failure Status: Acute (3) Respiratory failure Status: Acute (4) Septic shock Status: Acute (5) UTI (urinary tract infection) Status: Acute Assessment CHF Respiratory failure Renal Failure Sepsis UTI Cognitive Impairment at baseline CAD s/p PCI/stent LAD/RCA: cardiac cath 03/2017 showed patent stents. Hypothyroidism Plan ICU monitoring Wean Levophed Wean ventilation Labs IV antibiotics Dapto and Zosyn Home meds if possible Consult cards, nephro, pulm, ID, neuro Full code Prognosis guarded Will await [facility] decision on possible transfer Appreciate subspecialist input Total time 33 min . Comment Review of Relevant I have reviewed the following items brooke (where applicable) has been applied. Medications: Current Medications Medications (Trade) Dose Ordered Sig/Kerry Route PRN Reason Start Time Stop Time Status Last Admin Dose Admin Famotidine (Pepcid Vial) 20 mg QHS IVP 12/01/18 21:00 12/01/18 21:37 Norepinephrine Bitartrate 250 ml @ 14.836 mls/ hr CONT PRN IV SEE I/O RECORD 12/02/18 08:15 12/02/18 08:37 Potassium Chloride/Water 50 ml @ 50 mls/hr Q1H IV 12/02/18 08:30 12/02/18 10:29 DC 12/02/18 09:42 Magnesium Sulfate 50 ml @ 25 mls/hr 1X ONCE IV 12/02/18 08:15 12/02/18 10:14 DC 12/02/18 08:38 Amiodarone HCl 150 mg/Dextrose 103 ml @ 618 mls/hr 1X ONCE IV 12/02/18 09:45 12/02/18 09:54 DC 12/02/18 10:23 TICO EDUARDO III DO Dec 02, 2018 11:52
[2018-12-02] MEDS ORDERED: DIGOXIN IV 500 MCG/2 ML AMPUL. IV ONE (12:00)
--- NOTE | 2018-12-02 12:18 | NUR ---
SS following up with request for [facility] transfer. SS contacted transfer team, ; fax [phone], and made request for transfer. SS faxed clinical to . Images clouded. SS will await acceptance decision and will proceed accordingly.
--- NOTE | 2018-12-02 13:10 | PDOC ---
PULMONARY PROGRESS NOTES Subjective remains intubated fluctuating BP low dose levo Vitals Vital Signs Date Time Temp Pulse Resp B/P (MAP) Pulse Ox O2 Delivery O2 Flow Rate FiO2 12/02/18 12:49 99 Ventilator 12/02/18 12:21 123 139/69 12/02/18 12:00 99.4 12 99.4 Lungs: Other (decrease bs) Cardiovascular: S1, S2 Abdomen: Soft, Non-tender, Other Extremities: Other (1+edema/ stasis) Skin: Warm Labs Laboratory Tests Test 11/30/18 13:35 11/30/18 15:08 11/30/18 15:35 11/30/18 16:24 Ammonia 21 mcmol/L (11-34) Glucose (Fingerstick) 412 mg/dL (70-99) 402 mg/dL (70-99) Sodium Level 143 mmol/L (136-145) Potassium Level 3.3 mmol/L (3.5-5.1) Chloride Level 100 mmol/L (98-107) Carbon Dioxide Level 30 mmol/L (21-32) Anion Gap 13 (6-14) Blood Urea Nitrogen 22 mg/dL (7-20) Creatinine 2.5 mg/dL (0.6-1.0) Estimated GFR (Cockcroft-Gault) 19.0 Glucose Level 410 mg/dL (70-99) Lactic Acid Level 9.2 mmol/L (0.4-2.0) Calcium Level 7.8 mg/dL (8.5-10.1) Phosphorus Level 3.6 mg/dL (2.6-4.7) Magnesium Level 1.3 mg/dL (1.8-2.4) Troponin I Quantitative 5.316 ng/mL (0.000-0.055) Test 11/30/18 17:22 11/30/18 18:27 11/30/18 19:34 11/30/18 19:36 Glucose (Fingerstick) 401 mg/dL (70-99) 333 mg/dL (70-99) 173 mg/dL (70-99) Sodium Level 145 mmol/L (136-145) Potassium Level 3.4 mmol/L (3.5-5.1) Chloride Level 102 mmol/L (98-107) Carbon Dioxide Level 34 mmol/L (21-32) Anion Gap 9 (6-14) Blood Urea Nitrogen 24 mg/dL (7-20) Creatinine 2.3 mg/dL (0.6-1.0) Estimated GFR (Cockcroft-Gault) 21.0 Glucose Level 187 mg/dL (70-99) Calcium Level 8.4 mg/dL (8.5-10.1) Phosphorus Level 1.3 mg/dL (2.6-4.7) Magnesium Level 2.2 mg/dL (1.8-2.4) Troponin I Quantitative 10.962 ng/mL (0.000-0.055) Test 11/30/18 20:38 11/30/18 21:05 12/01/18 00:01 12/01/18 05:05 Glucose (Fingerstick) 139 mg/dL (70-99) 119 mg/dL (70-99) 161 mg/dL (70-99) Sodium Level 145 mmol/L (136-145) Potassium Level 3.1 mmol/L (3.5-5.1) Chloride Level 103 mmol/L (98-107) Carbon Dioxide Level 36 mmol/L (21-32) Anion Gap 6 (6-14) Blood Urea Nitrogen 29 mg/dL (7-20) Creatinine 2.4 mg/dL (0.6-1.0) Estimated GFR (Cockcroft-Gault) 20.0 Glucose Level 151 mg/dL (70-99) Calcium Level 8.4 mg/dL (8.5-10.1) Phosphorus Level 1.1 mg/dL (2.6-4.7) Magnesium Level 2.1 mg/dL (1.8-2.4) Test 12/01/18 05:12 12/01/18 08:00 12/01/18 09:45 12/01/18 17:55 Glucose (Fingerstick) 145 mg/dL (70-99) O2 Saturation 97 % (92-99) 96 % (92-99) Arterial Blood pH 7.66 (7.35-7.45) 7.46 (7.35-7.45) Arterial Blood pCO2 at Patient Temp 28 mmHg (35-46) 49 mmHg (35-46) Arterial Blood pO2 at Patient Temp 83 mmHg (65-108) 94 mmHg (65-108) Arterial Blood HCO3 31 mmol/L (21-28) 34 mmol/L (21-28) Arterial Blood Base Excess 10 mmol/L (-3-3) 9 mmol/L (-3-3) FiO2 50 50 White Blood Count 7.3 x10^3/uL (4.0-11.0) Red Blood Count 2.90 x10^6/uL (3.50-5.40) Hemoglobin 7.2 g/dL (12.0-15.5) Hematocrit 22.8 % (36.0-47.0) Mean Corpuscular Volume 79 fL (79-100) Mean Corpuscular Hemoglobin 25 pg (25-35) Mean Corpuscular Hemoglobin Concent 32 g/dL (31-37) Red Cell Distribution Width 22.8 % (11.5-14.5) Platelet Count 137 x10^3/uL (140-400) Sodium Level 145 mmol/L (136-145) Potassium Level 3.6 mmol/L (3.5-5.1) Chloride Level 103 mmol/L (98-107) Carbon Dioxide Level 38 mmol/L (21-32) Anion Gap 4 (6-14) Blood Urea Nitrogen 31 mg/dL (7-20) Creatinine 2.3 mg/dL (0.6-1.0) Estimated GFR (Cockcroft-Gault) 21.0 BUN/Creatinine Ratio 13 (6-20) Glucose Level 157 mg/dL (70-99) Calcium Level 7.5 mg/dL (8.5-10.1) Phosphorus Level 5.0 mg/dL (2.6-4.7) Magnesium Level 2.0 mg/dL (1.8-2.4) Total Bilirubin 0.5 mg/dL (0.2-1.0) Aspartate Amino Transf (AST/SGOT) 1416 U/L (15-37) Alanine Aminotransferase (ALT/SGPT) 1097 U/L (14-59) Alkaline Phosphatase 78 U/L (46-116) Total Protein 5.0 g/dL (6.4-8.2) Albumin 1.9 g/dL (3.4-5.0) Albumin/Globulin Ratio 0.6 (1.0-1.7) Test 12/01/18 21:44 12/02/18 06:15 12/02/18 09:10 12/02/18 09:23 Glucose (Fingerstick) 128 mg/dL (70-99) 139 mg/dL (70-99) White Blood Count 6.3 x10^3/uL (4.0-11.0) Red Blood Count 3.00 x10^6/uL (3.50-5.40) Hemoglobin 7.5 g/dL (12.0-15.5) Hematocrit 23.9 % (36.0-47.0) Mean Corpuscular Volume 80 fL (79-100) Mean Corpuscular Hemoglobin 25 pg (25-35) Mean Corpuscular Hemoglobin Concent 32 g/dL (31-37) Red Cell Distribution Width 22.8 % (11.5-14.5) Platelet Count 133 x10^3/uL (140-400) Neutrophils (%) (Auto) 84 % (31-73) Lymphocytes (%) (Auto) 7 % (24-48) Monocytes (%) (Auto) 6 % (0-9) Eosinophils (%) (Auto) 2 % (0-3) Basophils (%) (Auto) 0 % (0-3) Neutrophils # (Auto) 5.3 x10^3/uL (1.8-7.7) Lymphocytes # (Auto) 0.5 x10^3/uL (1.0-4.8) Monocytes # (Auto) 0.4 x10^3/uL (0.0-1.1) Eosinophils # (Auto) 0.1 x10^3/uL (0.0-0.7) Basophils # (Auto) 0.0 x10^3/uL (0.0-0.2) Prothrombin Time 23.7 SEC (11.7-14.0) Prothromb Time International Ratio 2.1 (0.8-1.1) Sodium Level 146 mmol/L (136-145) Potassium Level 3.3 mmol/L (3.5-5.1) Chloride Level 103 mmol/L (98-107) Carbon Dioxide Level 38 mmol/L (21-32) Anion Gap 5 (6-14) Blood Urea Nitrogen 31 mg/dL (7-20) Creatinine 2.1 mg/dL (0.6-1.0) Estimated GFR (Cockcroft-Gault) 23.3 Glucose Level 143 mg/dL (70-99) Calcium Level 7.7 mg/dL (8.5-10.1) Phosphorus Level 4.9 mg/dL (2.6-4.7) Magnesium Level 1.8 mg/dL (1.8-2.4) O2 Saturation 95 % (92-99) Arterial Blood pH 7.40 (7.35-7.45) Arterial Blood pCO2 at Patient Temp 53 mmHg (35-46) Arterial Blood pO2 at Patient Temp 87 mmHg (65-108) Arterial Blood HCO3 32 mmol/L (21-28) Arterial Blood Base Excess 7 mmol/L (-3-3) FiO2 40 Laboratory Tests Test 12/01/18 17:55 12/01/18 21:44 12/02/18 06:15 12/02/18 09:10 White Blood Count 7.3 x10^3/uL (4.0-11.0) 6.3 x10^3/uL (4.0-11.0) Red Blood Count 2.90 x10^6/uL (3.50-5.40) 3.00 x10^6/uL (3.50-5.40) Hemoglobin 7.2 g/dL (12.0-15.5) 7.5 g/dL (12.0-15.5) Hematocrit 22.8 % (36.0-47.0) 23.9 % (36.0-47.0) Mean Corpuscular Volume 79 fL (79-100) 80 fL (79-100) Mean Corpuscular Hemoglobin 25 pg (25-35) 25 pg (25-35) Mean Corpuscular Hemoglobin Concent 32 g/dL (31-37) 32 g/dL (31-37) Red Cell Distribution Width 22.8 % (11.5-14.5) 22.8 % (11.5-14.5) Platelet Count 137 x10^3/uL (140-400) 133 x10^3/uL (140-400) Sodium Level 145 mmol/L (136-145) 146 mmol/L (136-145) Potassium Level 3.6 mmol/L (3.5-5.1) 3.3 mmol/L (3.5-5.1) Chloride Level 103 mmol/L (98-107) 103 mmol/L (98-107) Carbon Dioxide Level 38 mmol/L (21-32) 38 mmol/L (21-32) Anion Gap 4 (6-14) 5 (6-14) Blood Urea Nitrogen 31 mg/dL (7-20) 31 mg/dL (7-20) Creatinine 2.3 mg/dL (0.6-1.0) 2.1 mg/dL (0.6-1.0) Estimated GFR (Cockcroft-Gault) 21.0 23.3 BUN/Creatinine Ratio 13 (6-20) Glucose Level 157 mg/dL (70-99) 143 mg/dL (70-99) Calcium Level 7.5 mg/dL (8.5-10.1) 7.7 mg/dL (8.5-10.1) Phosphorus Level 5.0 mg/dL (2.6-4.7) 4.9 mg/dL (2.6-4.7) Magnesium Level 2.0 mg/dL (1.8-2.4) 1.8 mg/dL (1.8-2.4) Total Bilirubin 0.5 mg/dL (0.2-1.0) Aspartate Amino Transf (AST/SGOT) 1416 U/L (15-37) Alanine Aminotransferase (ALT/SGPT) 1097 U/L (14-59) Alkaline Phosphatase 78 U/L (46-116) Total Protein 5.0 g/dL (6.4-8.2) Albumin 1.9 g/dL (3.4-5.0) Albumin/Globulin Ratio 0.6 (1.0-1.7) Glucose (Fingerstick) 128 mg/dL (70-99) Neutrophils (%) (Auto) 84 % (31-73) Lymphocytes (%) (Auto) 7 % (24-48) Monocytes (%) (Auto) 6 % (0-9) Eosinophils (%) (Auto) 2 % (0-3) Basophils (%) (Auto) 0 % (0-3) Neutrophils # (Auto) 5.3 x10^3/uL (1.8-7.7) Lymphocytes # (Auto) 0.5 x10^3/uL (1.0-4.8) Monocytes # (Auto) 0.4 x10^3/uL (0.0-1.1) Eosinophils # (Auto) 0.1 x10^3/uL (0.0-0.7) Basophils # (Auto) 0.0 x10^3/uL (0.0-0.2) Prothrombin Time 23.7 SEC (11.7-14.0) Prothromb Time International Ratio 2.1 (0.8-1.1) O2 Saturation 95 % (92-99) Arterial Blood pH 7.40 (7.35-7.45) Arterial Blood pCO2 at Patient Temp 53 mmHg (35-46) Arterial Blood pO2 at Patient Temp 87 mmHg (65-108) Arterial Blood HCO3 32 mmol/L (21-28) Arterial Blood Base Excess 7 mmol/L (-3-3) FiO2 40 Test 12/02/18 09:23 Glucose (Fingerstick) 139 mg/dL (70-99) Medications Active Scripts Medications Dose Route/Sig Max Daily Dose Days Date Category Dose Instructions Humalog (Insulin Lispro) 100 Unit/1 Ml Insuln.pen 10 Units SQ TIDWMEALS MDD 1 14 02/02/18 Rx Lantus Solostar (Insulin Glargine,Hum.rec.anlog) 100 Unit/1 Ml Insuln.pen 30 Units SQ QHS 14 02/02/18 Rx Gabapentin (Gabapentin) 100 Mg Capsule 200 Mg PO TID MDD 1 14 02/02/18 Rx Hydrocodone-Apap 5-325 (Hydrocodone Bit/Acetaminophen) 1 Each Tablet 1 Tab PO PRN Q6HRS PRN 02/02/18 Rx Potassium Chloride 10 Meq Tablet.er 10 Meq PO DAILY 01/26/18 Reported Furosemide 40 Mg Tablet 40 Mg PO BID 01/26/18 Reported Fosamax (Alendronate Sodium) 70 Mg Tablet 1 Tab PO WEEKLY 01/26/18 Reported wednesday Vitamin D2 (Ergocalciferol (Vitamin D2)) 50,000 Unit Capsule 1 Cap PO TWICE WEEKLY 01/26/18 Reported WED AND sAT Amlodipine Besylate 10 Mg Tablet 10 Mg PO DAILY MDD 1 01/24/18 Rx Clonidine Tts-2 (Clonidine) 1 Each Patch.tdwk 1 Patch TD WEEKLY MDD 1 01/24/18 Rx Hydralazine Hcl 50 Mg Tablet 50 Mg PO TID MDD 1 01/24/18 Rx Metoprolol Succinate ( Xl ) (Metoprolol Succinate) 25 Mg Tab.er.24h 1 Tab PO DAILY 12/31/17 Reported Voltaren (Diclofenac Sodium) 100 Gm Gel..gram. 1 Gm TP QID 12/31/17 Reported Ferrous Sulfate 325 Mg Tablet 325 Mg PO DAILY 10/24/17 Reported Colestipol Hcl 1 Gm Tablet 1 Gm PO DAILY 10/24/17 Reported Oxybutynin Chloride 5 Mg Tablet 5 Mg PO TID 03/17/17 Reported Lipitor (Atorvastatin Calcium) 80 Mg Tablet 80 Mg PO HS 03/17/17 Reported Levothyroxine Sodium 150 Mcg Tablet 1 Tab PO DAILY 03/17/17 Reported Isosorbide Mononitrate Er (Isosorbide Mononitrate) 30 Mg Tab.er.24h 1 Tab PO DAILY 03/17/17 Reported Lantus (Insulin Glargine,Hum.rec.anlog) 100 Unit/1 Ml Vial 52 Unit SQ BID 05/14/15 Reported MAY INCREASE FOR BLOOD SUGARS GREATER THAN 200 FASTING Duoneb 0.5-3(2.5) Mg/3 Ml (Albuterol/Ipratropium) 3 Ml Ampul.neb 3 Ml IH QID 05/14/15 Reported Ventolin Hfa Inhaler (Albuterol Sulfate) 18 Gm Hfa.aer.ad 2 Puff INH Q4HRS PRN 05/14/15 Reported Venlafaxine Hcl Er (Venlafaxine Hcl) 150 Mg Cap.er.24h 150 Mg PO DAILY 05/14/15 Reported Novolog Flexpen (Insulin Aspart) 100 Unit/1 Ml Insuln.pen 30 Unit SQ TIDAC 05/14/15 Reported Pantoprazole Sodium (Pantoprazole Sodium) 40 Mg Tablet.dr 40 Mg PO DAILY 05/14/15 Reported Trazodone Hcl 100 Mg Tablet 200 Mg PO HS 05/14/[address] CHEST Moderate to large bilateral pleural effusions with pulmonary interstitial infiltrates and scattered bibasilar atelectatic consolidation. Mild pulmonary vascular congestion. Circumferential wall thickening of the cecum and ascending colon. Correlate for underlying colitis including ischemic etiology. No significant surrounding stranding noted however. No abscess. Advanced atherosclerotic calcific involvement of the abdominal aorta and its branches. Stenosis of the distal abdominal aorta. Urinary bladder wall thickening which may represent neurogenic bladder or chronic cystitis. Impression . 1. Acute hypoxic respiratory failure secondary to acute congestive heart failure. 2. Abnormal chest x-ray with bilateral pleural effusions and vascular markings. 3. The patient with history of atrial fibrillation, on amiodarone and Eliquis. Likely diastolic HF. She had prior thoracentesis done at recently. 4. Encephalopathy, likely related to cardiac pump failure. CT head negative. 5. Hyperglycemia, continue insulin per protocol. 6. Abnormal renal function could be chronic kidney disease. 7. Marked lactic acidosis secondary to suspected poor myocardial perfusion. Unlikely sepsis. 8. Severe protein-calorie malnutrition. Plan . 1. Continue with present assist control mode. 2. ABGs ADEQUATE. WILL DC SEDATION AND ASSESS FOR CPAP TRIAL 3. Diuresis if can tolerate 4. Insulin per protocol. 5. echocardiogram with normal EF 6. Follow Cardiology recommendation. 7. antibiotic per ID 8. Follow renal function 9. DVT and stress ulcer prophylaxis. 10. Discussed with the patient's family, RN and RT. We will follow along with you. ORQUIDEA LYNN MD Dec 02, 2018 13:10
--- NOTE | 2018-12-02 13:54 | CARD ---
MR#: [id number] Date of Study: 12/01/2018 Ordering Physician: ORQUIDEA LYNN, Referring Physician: ORQUIDEA LYNN, Tech: Lorraine Osman [facility] APPROVED REPORT EXAM: Two-dimensional and M-mode echocardiogram with Doppler and color Doppler. Other Information Quality : AverageHR: 70bpm Rhythm : NSR INDICATION Pericardial Effusion Congestive Heart Failure 2D DIMENSIONS RVDd3.0 (2.9-3.5cm)Left Atrium(2D)3.8 (1.6-4.0cm) IVSd1.2 (0.7-1.1cm)Aortic Root(2D)3.0 (2.0-3.7cm) LVDd4.0 (3.9-5.9cm)LVOT Diameter1.9 (1.8-2.4cm) PWd1.0 (0.7-1.1cm)LVDs2.9 (2.5-4.0cm) FS (%) 28.5 %SV39.9 ml LVEF(%)55.5 (>50%) M-Mode DIMENSIONS Left Atrium(MM)3.84 (2.5-4.0cm)Aortic Root2.97 (2.2-3.7cm) Aortic Valve AoV Peak Juan.139.8cm/sAoV VTI22.9cm AO Peak GR.7.8mmHgLVOT VTI 14.64cm AO Mean GR.4mmHgAVA (VTI)1.80cm2 Mitral Valve MV E Egkbrvap44.6cm/sMV DECEL [id number] MV A Hzkohmva43.3cm/sE/A Ratio1.1 MV A [id number] TDI Medial E' P. V6.31cm/sE/Medial E'12.1 Tricuspid Valve TR P. [id number] [id number] TR Peak Gr.80yvEcFGZV66wzPm LEFT VENTRICLE The left ventricle is normal size. There is borderline to mild concentric left ventricular hypertroph y. The left ventricular systolic function is normal. The Ejection Fraction is 55-60%. There is normal LV segmental wall motion. Transmitral Doppler flow pattern is Grade II-pseudonormal filling dynamics . RIGHT VENTRICLE The right ventricle is normal size. There is normal right ventricular wall thickness. The right ventr icular systolic function is normal. ATRIA The left atrium size is normal. The right atrium size is normal. The interatrial septum is intact wit h no evidence for an atrial septal defect or patent foramen ovale as noted on 2-D or Doppler imaging. AORTIC VALVE The aortic valve is mildly calcified. The aortic valve is trileaflet. Doppler and Color Flow revealed no significant aortic regurgitation. There is no significant aortic valvular stenosis. MITRAL VALVE Mitral annular calcification is mild to moderate. There is no evidence of mitral valve prolapse. Ther e is no mitral valve stenosis. Doppler and Color Flow revealed no mitral valve regurgitation noted. TRICUSPID VALVE The tricuspid valve is normal in structure and function. Doppler and Color Flow revealed trace tricus pid regurgitation. The PA pressure was estimated at 45 mmHg. There is no tricuspid valve prolapse or vegetation. There is no tricuspid valve stenosis. PULMONIC VALVE The pulmonary valve is normal in structure and function. Doppler and Color Flow revealed no pulmonic valvular regurgitation. There is no pulmonic valvular stenosis. GREAT VESSELS The aortic root is normal in size. The ascending aorta is normal in size. The IVC is normal in size a nd collapses >50% with inspiration. PERICARDIAL EFFUSION There is no evidence of significant pericardial effusion. Critical Notification Critical Value: No <Conclusion> Technically difficult study. The left ventricular systolic function is normal. The Ejection Fraction is 55-60%. There is normal LV segmental wall motion. Trace tricuspid regurgitation. The PA pressure was estimated at 45 mmHg. There is no evidence of significant pericardial effusion. Signed by : Marcin Potts, Electronically Approved : 12/01/2018 11:03:29
[2018-12-02] MEDS: IV NORMAL SALINE 1000ML BAG 1,000 ML IV SCH (15:11)
[2018-12-02] MEDS ORDERED: DEXTROSE 50% 25 GM / 50ML DISP.SYRIN. IV PRN (18:30)
[2018-12-02] MEDS ORDERED: ACETAMINOPHEN 650 MG/20.3 ML SOLUTION. PEG PRN (18:30)
[2018-12-02] MEDS ORDERED: PROPOFOL 100 ML IV PRN (19:30)
[2018-12-02] MEDS: IPRATRPIUM/ALBUTEROL 0.5/2.5MG 3 ML NEBU. NEB SCH (20:04)
[2018-12-02] MEDS: FAMOTIDINE 20 MG/2 ML VIAL IVP SCH (20:39)
[2018-12-03] VITALS (24 sets, daily range): BP systolic 106–214; BP diastolic 49–81
[2018-12-03] MEDS: PIPERACILLIN/TAZOBACTAM 3.375 GM in IV NORMAL SALINE 50ML 50 ML IV SCH ×4 (00:26→18:29)
[2018-12-03] MEDS ORDERED: oxyCODONE/APAP 5/325 1 TAB TABLET PO PRN (02:30)
[2018-12-03] MEDS ORDERED: diphenhydrAMINE 50 MG/ML VIAL IVP PRN (02:30)
--- NOTE | 2018-12-03 06:04 | PDOC ---
PULMONARY PROGRESS NOTES Subjective on vent, sedated on propofol, off levo, mod ett secretion Vitals Vital Signs Date Time Temp Pulse Resp B/P (MAP) Pulse Ox O2 Delivery O2 Flow Rate FiO2 12/03/18 05:15 95 Ventilator 12/03/18 05:00 97 12 119/55 (76) 12/03/18 04:00 98.4 98.4 Comments ros as mentioned as above discussed w rn other sys otherwise neg sedated on vent HEENT: Other (nc at perrl nose clear orally intubated neck no lad no thyromegaly) Lungs: Other (decrease bs) Cardiovascular: S1, S2 Abdomen: Soft, Non-tender, Other (no mass) Extremities: Other (1+edema/ stasis) Skin: Warm Labs Laboratory Tests Test 12/01/18 08:00 12/01/18 09:45 12/01/18 17:55 12/01/18 21:44 O2 Saturation 97 % (92-99) 96 % (92-99) Arterial Blood pH 7.66 (7.35-7.45) 7.46 (7.35-7.45) Arterial Blood pCO2 at Patient Temp 28 mmHg (35-46) 49 mmHg (35-46) Arterial Blood pO2 at Patient Temp 83 mmHg (65-108) 94 mmHg (65-108) Arterial Blood HCO3 31 mmol/L (21-28) 34 mmol/L (21-28) Arterial Blood Base Excess 10 mmol/L (-3-3) 9 mmol/L (-3-3) FiO2 50 50 White Blood Count 7.3 x10^3/uL (4.0-11.0) Red Blood Count 2.90 x10^6/uL (3.50-5.40) Hemoglobin 7.2 g/dL (12.0-15.5) Hematocrit 22.8 % (36.0-47.0) Mean Corpuscular Volume 79 fL (79-100) Mean Corpuscular Hemoglobin 25 pg (25-35) Mean Corpuscular Hemoglobin Concent 32 g/dL (31-37) Red Cell Distribution Width 22.8 % (11.5-14.5) Platelet Count 137 x10^3/uL (140-400) Sodium Level 145 mmol/L (136-145) Potassium Level 3.6 mmol/L (3.5-5.1) Chloride Level 103 mmol/L (98-107) Carbon Dioxide Level 38 mmol/L (21-32) Anion Gap 4 (6-14) Blood Urea Nitrogen 31 mg/dL (7-20) Creatinine 2.3 mg/dL (0.6-1.0) Estimated GFR (Cockcroft-Gault) 21.0 BUN/Creatinine Ratio 13 (6-20) Glucose Level 157 mg/dL (70-99) Calcium Level 7.5 mg/dL (8.5-10.1) Phosphorus Level 5.0 mg/dL (2.6-4.7) Magnesium Level 2.0 mg/dL (1.8-2.4) Total Bilirubin 0.5 mg/dL (0.2-1.0) Aspartate Amino Transf (AST/SGOT) 1416 U/L (15-37) Alanine Aminotransferase (ALT/SGPT) 1097 U/L (14-59) Alkaline Phosphatase 78 U/L (46-116) Total Protein 5.0 g/dL (6.4-8.2) Albumin 1.9 g/dL (3.4-5.0) Albumin/Globulin Ratio 0.6 (1.0-1.7) Glucose (Fingerstick) 128 mg/dL (70-99) Test 12/02/18 06:15 12/02/18 09:10 12/02/18 09:23 12/02/18 20:32 White Blood Count 6.3 x10^3/uL (4.0-11.0) Red Blood Count 3.00 x10^6/uL (3.50-5.40) Hemoglobin 7.5 g/dL (12.0-15.5) Hematocrit 23.9 % (36.0-47.0) Mean Corpuscular Volume 80 fL (79-100) Mean Corpuscular Hemoglobin 25 pg (25-35) Mean Corpuscular Hemoglobin Concent 32 g/dL (31-37) Red Cell Distribution Width 22.8 % (11.5-14.5) Platelet Count 133 x10^3/uL (140-400) Neutrophils (%) (Auto) 84 % (31-73) Lymphocytes (%) (Auto) 7 % (24-48) Monocytes (%) (Auto) 6 % (0-9) Eosinophils (%) (Auto) 2 % (0-3) Basophils (%) (Auto) 0 % (0-3) Neutrophils # (Auto) 5.3 x10^3/uL (1.8-7.7) Lymphocytes # (Auto) 0.5 x10^3/uL (1.0-4.8) Monocytes # (Auto) 0.4 x10^3/uL (0.0-1.1) Eosinophils # (Auto) 0.1 x10^3/uL (0.0-0.7) Basophils # (Auto) 0.0 x10^3/uL (0.0-0.2) Prothrombin Time 23.7 SEC (11.7-14.0) Prothromb Time International Ratio 2.1 (0.8-1.1) Sodium Level 146 mmol/L (136-145) Potassium Level 3.3 mmol/L (3.5-5.1) Chloride Level 103 mmol/L (98-107) Carbon Dioxide Level 38 mmol/L (21-32) Anion Gap 5 (6-14) Blood Urea Nitrogen 31 mg/dL (7-20) Creatinine 2.1 mg/dL (0.6-1.0) Estimated GFR (Cockcroft-Gault) 23.3 Glucose Level 143 mg/dL (70-99) Calcium Level 7.7 mg/dL (8.5-10.1) Phosphorus Level 4.9 mg/dL (2.6-4.7) Magnesium Level 1.8 mg/dL (1.8-2.4) O2 Saturation 95 % (92-99) Arterial Blood pH 7.40 (7.35-7.45) Arterial Blood pCO2 at Patient Temp 53 mmHg (35-46) Arterial Blood pO2 at Patient Temp 87 mmHg (65-108) Arterial Blood HCO3 32 mmol/L (21-28) Arterial Blood Base Excess 7 mmol/L (-3-3) FiO2 40 Glucose (Fingerstick) 139 mg/dL (70-99) 134 mg/dL (70-99) Laboratory Tests Test 12/02/18 06:15 12/02/18 09:10 12/02/18 09:23 12/02/18 20:32 White Blood Count 6.3 x10^3/uL (4.0-11.0) Red Blood Count 3.00 x10^6/uL (3.50-5.40) Hemoglobin 7.5 g/dL (12.0-15.5) Hematocrit 23.9 % (36.0-47.0) Mean Corpuscular Volume 80 fL (79-100) Mean Corpuscular Hemoglobin 25 pg (25-35) Mean Corpuscular Hemoglobin Concent 32 g/dL (31-37) Red Cell Distribution Width 22.8 % (11.5-14.5) Platelet Count 133 x10^3/uL (140-400) Neutrophils (%) (Auto) 84 % (31-73) Lymphocytes (%) (Auto) 7 % (24-48) Monocytes (%) (Auto) 6 % (0-9) Eosinophils (%) (Auto) 2 % (0-3) Basophils (%) (Auto) 0 % (0-3) Neutrophils # (Auto) 5.3 x10^3/uL (1.8-7.7) Lymphocytes # (Auto) 0.5 x10^3/uL (1.0-4.8) Monocytes # (Auto) 0.4 x10^3/uL (0.0-1.1) Eosinophils # (Auto) 0.1 x10^3/uL (0.0-0.7) Basophils # (Auto) 0.0 x10^3/uL (0.0-0.2) Prothrombin Time 23.7 SEC (11.7-14.0) Prothromb Time International Ratio 2.1 (0.8-1.1) Sodium Level 146 mmol/L (136-145) Potassium Level 3.3 mmol/L (3.5-5.1) Chloride Level 103 mmol/L (98-107) Carbon Dioxide Level 38 mmol/L (21-32) Anion Gap 5 (6-14) Blood Urea Nitrogen 31 mg/dL (7-20) Creatinine 2.1 mg/dL (0.6-1.0) Estimated GFR (Cockcroft-Gault) 23.3 Glucose Level 143 mg/dL (70-99) Calcium Level 7.7 mg/dL (8.5-10.1) Phosphorus Level 4.9 mg/dL (2.6-4.7) Magnesium Level 1.8 mg/dL (1.8-2.4) O2 Saturation 95 % (92-99) Arterial Blood pH 7.40 (7.35-7.45) Arterial Blood pCO2 at Patient Temp 53 mmHg (35-46) Arterial Blood pO2 at Patient Temp 87 mmHg (65-108) Arterial Blood HCO3 32 mmol/L (21-28) Arterial Blood Base Excess 7 mmol/L (-3-3) FiO2 40 Glucose (Fingerstick) 139 mg/dL (70-99) 134 mg/dL (70-99) Medications Active Scripts Medications Dose Route/Sig Max Daily Dose Days Date Category Dose Instructions Humalog (Insulin Lispro) 100 Unit/1 Ml Insuln.pen 10 Units SQ TIDWMEALS MDD 1 14 02/02/18 Rx Lantus Solostar (Insulin Glargine,Hum.rec.anlog) 100 Unit/1 Ml Insuln.pen 30 Units SQ QHS 14 02/02/18 Rx Gabapentin (Gabapentin) 100 Mg Capsule 200 Mg PO TID MDD 1 14 02/02/18 Rx Hydrocodone-Apap 5-325 (Hydrocodone Bit/Acetaminophen) 1 Each Tablet 1 Tab PO PRN Q6HRS PRN 02/02/18 Rx Potassium Chloride 10 Meq Tablet.er 10 Meq PO DAILY 01/26/18 Reported Furosemide 40 Mg Tablet 40 Mg PO BID 01/26/18 Reported Fosamax (Alendronate Sodium) 70 Mg Tablet 1 Tab PO WEEKLY 01/26/18 Reported wednesday Vitamin D2 (Ergocalciferol (Vitamin D2)) 50,000 Unit Capsule 1 Cap PO TWICE WEEKLY 01/26/18 Reported WED AND sAT Amlodipine Besylate 10 Mg Tablet 10 Mg PO DAILY MDD 1 01/24/18 Rx Clonidine Tts-2 (Clonidine) 1 Each Patch.tdwk 1 Patch TD WEEKLY MDD 1 01/24/18 Rx Hydralazine Hcl 50 Mg Tablet 50 Mg PO TID MDD 1 01/24/18 Rx Metoprolol Succinate ( Xl ) (Metoprolol Succinate) 25 Mg Tab.er.24h 1 Tab PO DAILY 12/31/17 Reported Voltaren (Diclofenac Sodium) 100 Gm Gel..gram. 1 Gm TP QID 12/31/17 Reported Ferrous Sulfate 325 Mg Tablet 325 Mg PO DAILY 10/24/17 Reported Colestipol Hcl 1 Gm Tablet 1 Gm PO DAILY 10/24/17 Reported Oxybutynin Chloride 5 Mg Tablet 5 Mg PO TID 03/17/17 Reported Lipitor (Atorvastatin Calcium) 80 Mg Tablet 80 Mg PO HS 03/17/17 Reported Levothyroxine Sodium 150 Mcg Tablet 1 Tab PO DAILY 03/17/17 Reported Isosorbide Mononitrate Er (Isosorbide Mononitrate) 30 Mg Tab.er.24h 1 Tab PO DAILY 03/17/17 Reported Lantus (Insulin Glargine,Hum.rec.anlog) 100 Unit/1 Ml Vial 52 Unit SQ BID 05/14/15 Reported MAY INCREASE FOR BLOOD SUGARS GREATER THAN 200 FASTING Duoneb 0.5-3(2.5) Mg/3 Ml (Albuterol/Ipratropium) 3 Ml Ampul.neb 3 Ml IH QID 05/14/15 Reported Ventolin Hfa Inhaler (Albuterol Sulfate) 18 Gm Hfa.aer.ad 2 Puff INH Q4HRS PRN 05/14/15 Reported Venlafaxine Hcl Er (Venlafaxine Hcl) 150 Mg Cap.er.24h 150 Mg PO DAILY 05/14/15 Reported Novolog Flexpen (Insulin Aspart) 100 Unit/1 Ml Insuln.pen 30 Unit SQ TIDAC 05/14/15 Reported Pantoprazole Sodium (Pantoprazole Sodium) 40 Mg Tablet.dr 40 Mg PO DAILY 05/14/15 Reported Trazodone Hcl 100 Mg Tablet 200 Mg PO HS 05/14/15 Reported Comments cxr 12/03, reviewed 1. Stable diffuse interstitial infiltrate likely due to pulmonary congestion. 2. Stable small pleural effusions. 3. Stable support lines and tubes. CT CHEST Moderate to large bilateral pleural effusions with pulmonary interstitial infiltrates and scattered bibasilar atelectatic consolidation. Mild pulmonary vascular congestion. Circumferential wall thickening of the cecum and ascending colon. Correlate for underlying colitis including ischemic etiology. No significant surrounding stranding noted however. No abscess. Advanced atherosclerotic calcific involvement of the abdominal aorta and its branches. Stenosis of the distal abdominal aorta. Urinary bladder wall thickening which may represent neurogenic bladder or chronic cystitis. Impression . 1. Acute hypoxic respiratory failure secondary to acute congestive heart failure. 2. Abnormal chest x-ray with bilateral pleural effusions and vascular markings. 3. The patient with history of atrial fibrillation, on amiodarone and Eliquis. Likely diastolic HF. She had prior thoracentesis done at recently. 4. Encephalopathy, likely related to cardiac pump failure. CT head negative. 5. Hyperglycemia, continue insulin per protocol. 6. Abnormal renal function could be chronic kidney disease. 7. Marked lactic acidosis secondary to suspected poor myocardial perfusion. Unlikely sepsis. 8. Severe protein-calorie malnutrition. Plan . 1. Continue with present assist control mode. dc sedation, will do sbt 2. ABGs ADEQUATE. 3. Diuresis if can tolerate 4. Insulin per protocol. 5. echocardiogram with normal EF 6. Follow Cardiology recommendation. 7. antibiotic per ID 8. Follow renal function 9. DVT and stress ulcer prophylaxis. 10. Discussed with RN and RT. We will follow along with you. BRANDON JACINTO MD Dec 03, 2018 06:04
[2018-12-03 06:10] LABS: BASO % 1 % (0-3); EOS # 0.1 x10^3/uL (0.0-0.7); EOS % 2 % (0-3); HEMATOCRIT 24.6 % (36.0-47.0); HEMOGLOBIN 7.8 g/dL (12.0-15.5); LYMPH # 0.5 x10^3/uL (1.0-4.8); LYMPH % 9 % (24-48); MEAN CORPUSCULAR HEMOGLOBIN 25 pg (25-35); MEAN CORPUSCULAR HGB CONC 32 g/dL (31-37); MEAN CORPUSCULAR VOLUME 80 fL (79-100); MONO # 0.5 x10^3/uL (0.0-1.1); MONO % 9 % (0-9); NEUT # 4.6 x10^3/uL (1.8-7.7); NEUT % 80 % (31-73); PLATELET COUNT 147 x10^3/uL (140-400); RED BLOOD COUNT 3.09 x10^6/uL (3.50-5.40); RED CELL DISTRIBUTION WIDTH 21.7 % (11.5-14.5); WHITE BLOOD COUNT 5.8 x10^3/uL (4.0-11.0)
[2018-12-03 06:33] LABS: CALCIUM 7.9 mg/dL (8.5-10.1); CREATININE 1.7 mg/dL (0.6-1.0); GFR 29.7; POTASSIUM 3.4 mmol/L (3.5-5.1)
--- NOTE | 2018-12-03 07:51 | RAD ---
EXAM: Chest, single view. HISTORY: Intubation. COMPARISON: 12/02/2018 FINDINGS: Frontal views of the chest are obtained. There is an endotracheal tube within the mid trachea. There is a nasogastric tube within the stomach. There is a left internal jugular catheter with the tip in the superior vena cava. There is stable diffuse interstitial infiltrate with small pleural effusions. There is a stable prominent cardiac silhouette. There is no pneumothorax. IMPRESSION: 1. Stable diffuse interstitial infiltrate likely due to pulmonary congestion. 2. Stable small pleural effusions. 3. Stable support lines and tubes. Electronically signed by: Emily Jolley MD (12/03/2018 7:48 AM) [facility]
[2018-12-03] MEDS: INSULIN LISPRO 300 UNITS/3 ML VIAL. SQ SCH ×3 (08:00→17:00)
[2018-12-03] MEDS: IPRATRPIUM/ALBUTEROL 0.5/2.5MG 3 ML NEBU. NEB SCH ×4 (08:16→19:56)
[2018-12-03] MEDS: SENNOSIDES/DOCUSATE 8.6/50MG TABLET. PO SCH ×2 (09:00→21:00)
[2018-12-03 09:58] LABS: BASE EXCESS ABG 10 mmol/L (-3-3); HCO3 ABG 35 mmol/L (21-28); PCO2 ABG 53 mmHg (35-46); PO2 ABG 117 mmHg (65-108); SAT O2 ABG 98 % (92-99)
[2018-12-03] MEDS ORDERED: hydrALAZINE 20 MG/ML VIAL. ONE (10:01)
[2018-12-03 10:02] LABS: FIO2 ABG 40
[2018-12-03] MEDS: hydrALAZINE 20 MG/ML VIAL. IVP PRN ×2 (10:05→18:23)
[2018-12-03] MEDS: DAPTOmycin (GENERIC) IVPB 320 MG in IV NORMAL SALINE 50ML 50 ML IV SCH (10:30)
[2018-12-03] MEDS: INSULIN GLARGINE SYRINGE. SQ SCH ×2 (10:36→21:29)
[2018-12-03] MEDS: AMINO AC 3%/ELECTROLYTE/GLYCER 1,000 ML IV SCH (10:37)
--- NOTE | 2018-12-03 11:37 | PDOC ---
[facility] PROGRESS NOTE Chief Complaint Chief Complaint Respiratory failure Renal Failure Sepsis UTI History of Present Illness History of Present Illness 12/03/18 Pt was seen and examined in the ICU Pt intubated. Vent settings: (AC 12/450/40% 5 PEEP) Pt was wearing mittens Accompanied by family members Reviewed charts and labs BP was elevated at 194/77 Discussed denial of [facility] transfer. Family ok now. D/w RN 12/02/18 Pt was seen and examined in ICU Reviewed chart and labs Discussed with [facility] transfer RN Pt intubated Vent Settings (AC/12/450/40% 5.0 PEEP) I talked extensively with her daughter about her concerns . The daughter wanted to transfer the pt but we reassured her that the pt is getting the best care here in the ICU. Nephrology was in the room with us. CROW SEPULVEDA 12/01/18 Pt was seen and examined in the ICU Pt is intubated with Vent Settings: (AC/12/450/150% 5 PEEP) Echo was being performed in room during exam RCOW SEPULVEDA Vitals/I&O Vitals/I&O: Vital Signs Date Time Temp Pulse Resp B/P (MAP) Pulse Ox O2 Delivery O2 Flow Rate FiO2 12/03/18 10:05 72 194/77 12/03/18 08:16 99 Ventilator 12/03/18 06:00 12 12/03/18 04:00 98.4 98.4 I & O 12/02/18 12/02/18 12/03/18 15:00 23:00 07:00 Intake Total 378 ml 56 ml 52.7 ml Output Total 960 ml 695 ml 335 ml Balance -582 ml -639 ml -282.3 ml Physical Exam Physical Exam: GENERAL: Sedated, orally intubated female, not in distress. VITAL SIGNS: stable, on vasopressors HEENT: Both pupils are round and reacting. No conjunctival lesion. Mouth: Orally cannot be visualized, orally intubated. NECK: Supple, no JVP, no lymphadenopathy. LUNGS: Decreased breath sounds bilaterally. HEART: S1, S2 regular. No gallop or murmur. ABDOMEN: Soft, nontender. EXTREMITIES: Chronic venous insufficiency changes present. There is no acute cellulitis or skin breakdown. Sacrococcygeal wound appears clean at least stage 2. NEUROLOGIC: The patient is currently sedated, unable to hop weigher, although had been moving all the extremities before she was intubated and sedated. General: Other (INTUBATED) Heart: Regular rate, Other (IRREGULAR) Lungs: Other (decrease bs) Abdomen: Normal bowel sounds Extremities: No clubbing, No cyanosis Skin: No breakdown Labs Labs: Laboratory Tests Test 12/02/18 20:32 12/03/18 06:00 12/03/18 09:55 Glucose (Fingerstick) 134 mg/dL (70-99) White Blood Count 5.8 x10^3/uL (4.0-11.0) Red Blood Count 3.09 x10^6/uL (3.50-5.40) Hemoglobin 7.8 g/dL (12.0-15.5) Hematocrit 24.6 % (36.0-47.0) Mean Corpuscular Volume 80 fL (79-100) Mean Corpuscular Hemoglobin 25 pg (25-35) Mean Corpuscular Hemoglobin Concent 32 g/dL (31-37) Red Cell Distribution Width 21.7 % (11.5-14.5) Platelet Count 147 x10^3/uL (140-400) Neutrophils (%) (Auto) 80 % (31-73) Lymphocytes (%) (Auto) 9 % (24-48) Monocytes (%) (Auto) 9 % (0-9) Eosinophils (%) (Auto) 2 % (0-3) Basophils (%) (Auto) 1 % (0-3) Neutrophils # (Auto) 4.6 x10^3/uL (1.8-7.7) Lymphocytes # (Auto) 0.5 x10^3/uL (1.0-4.8) Monocytes # (Auto) 0.5 x10^3/uL (0.0-1.1) Eosinophils # (Auto) 0.1 x10^3/uL (0.0-0.7) Basophils # (Auto) 0.0 x10^3/uL (0.0-0.2) Sodium Level 150 mmol/L (136-145) Potassium Level 3.4 mmol/L (3.5-5.1) Chloride Level 108 mmol/L (98-107) Carbon Dioxide Level 38 mmol/L (21-32) Anion Gap 4 (6-14) Blood Urea Nitrogen 26 mg/dL (7-20) Creatinine 1.7 mg/dL (0.6-1.0) Estimated GFR (Cockcroft-Gault) 29.7 Glucose Level 111 mg/dL (70-99) Calcium Level 7.9 mg/dL (8.5-10.1) O2 Saturation 98 % (92-99) Arterial Blood pH 7.44 (7.35-7.45) Arterial Blood pCO2 at Patient Temp 53 mmHg (35-46) Arterial Blood pO2 at Patient Temp 117 mmHg (65-108) Arterial Blood HCO3 35 mmol/L (21-28) Arterial Blood Base Excess 10 mmol/L (-3-3) FiO2 40 Review of Systems Review of Systems: Unable to obtain ROS due to pt sedation Assessment and Plan Assessmemt and Plan Problems Medical Problems: (1) CHF (congestive heart failure) Status: Acute (2) Renal failure Status: Acute (3) Respiratory failure Status: Acute (4) Septic shock Status: Acute (5) UTI (urinary tract infection) Status: Acute Assessment CHF Respiratory failure Renal Failure Sepsis UTI Cognitive Impairment at baseline CAD s/p PCI/stent LAD/RCA: cardiac cath 03/2017 showed patent stents. Hypothyroidism Plan Hydralazine PO for HTN Procalamine ICU monitoring Wean ventilation Labs IV antibiotics Piperacillin and tazobactam Home meds if possible Await input from cards, nephro, pulm, ID, neuro Full code Prognosis guarded Appreciate subspecialist input Total time 33 min Comment Review of Relevant I have reviewed the following items brooke (where applicable) has been applied. Medications: Current Medications Medications (Trade) Dose Ordered Sig/Kerry Route PRN Reason Start Time Stop Time Status Last Admin Dose Admin Digoxin (Lanoxin) 500 mcg 1X ONCE IV 12/02/18 12:00 12/02/18 12:01 DC 12/02/18 12:21 Albuterol/ Ipratropium (Duoneb) 3 ml RTQID NEB 12/02/18 20:00 12/03/18 08:16 Propofol 100 ml @ 1.187 mls/ hr CONT PRN IV SEE I/O RECORD 12/02/18 19:30 12/02/18 19:38 Hydralazine HCl (Apresoline Inj) 10 mg PRN Q4HRS PRN IVP ELEVATED BP, SEE COMMENTS 12/03/18 10:00 12/03/18 10:05 Amino Acids/ Glycerin/ Electrolytes 1,000 ml @ 50 mls/hr Q20H IV 12/03/18 10:30 12/03/18 10:37 TICO EDUARDO III DO Dec 03, 2018 11:37
--- NOTE | 2018-12-03 11:40 | PDOC ---
Infectious Disease Note Subjective Subjective Now off sedation, starting to wake up Remains intubated FiO2 40% PPN No fevers ROS ROS unobtainable Vital Sign Vital Signs Vital Signs Date Time Temp Pulse Resp B/P (MAP) Pulse Ox O2 Delivery O2 Flow Rate FiO2 12/03/18 10:05 72 194/77 12/03/18 08:16 99 Ventilator 12/03/18 06:00 12 12/03/18 04:00 98.4 98.4 Physical Exam PHYSICAL EXAM GENERAL: Orally intubated, calm, mitts HEENT: Pupils equal, ETT, OGT NECK: Supple, no JVP, no lymphadenopathy. LUNGS: Decreased breath sounds bilaterally. HEART: S1, S2 regular. No gallop or murmur. ABDOMEN: Soft, no guarding : [place]et EXTREMITIES: Chronic venous insufficiency changes present. 1+ edema RLE. Sacrococcygeal wound. NEUROLOGIC: Opens eyes to name [facility] clean Labs Lab Laboratory Tests Test 12/02/18 20:32 12/03/18 06:00 12/03/18 09:55 Glucose (Fingerstick) 134 mg/dL (70-99) White Blood Count 5.8 x10^3/uL (4.0-11.0) Red Blood Count 3.09 x10^6/uL (3.50-5.40) Hemoglobin 7.8 g/dL (12.0-15.5) Hematocrit 24.6 % (36.0-47.0) Mean Corpuscular Volume 80 fL (79-100) Mean Corpuscular Hemoglobin 25 pg (25-35) Mean Corpuscular Hemoglobin Concent 32 g/dL (31-37) Red Cell Distribution Width 21.7 % (11.5-14.5) Platelet Count 147 x10^3/uL (140-400) Neutrophils (%) (Auto) 80 % (31-73) Lymphocytes (%) (Auto) 9 % (24-48) Monocytes (%) (Auto) 9 % (0-9) Eosinophils (%) (Auto) 2 % (0-3) Basophils (%) (Auto) 1 % (0-3) Neutrophils # (Auto) 4.6 x10^3/uL (1.8-7.7) Lymphocytes # (Auto) 0.5 x10^3/uL (1.0-4.8) Monocytes # (Auto) 0.5 x10^3/uL (0.0-1.1) Eosinophils # (Auto) 0.1 x10^3/uL (0.0-0.7) Basophils # (Auto) 0.0 x10^3/uL (0.0-0.2) Sodium Level 150 mmol/L (136-145) Potassium Level 3.4 mmol/L (3.5-5.1) Chloride Level 108 mmol/L (98-107) Carbon Dioxide Level 38 mmol/L (21-32) Anion Gap 4 (6-14) Blood Urea Nitrogen 26 mg/dL (7-20) Creatinine 1.7 mg/dL (0.6-1.0) Estimated GFR (Cockcroft-Gault) 29.7 Glucose Level 111 mg/dL (70-99) Calcium Level 7.9 mg/dL (8.5-10.1) O2 Saturation 98 % (92-99) Arterial Blood pH 7.44 (7.35-7.45) Arterial Blood pCO2 at Patient Temp 53 mmHg (35-46) Arterial Blood pO2 at Patient Temp 117 mmHg (65-108) Arterial Blood HCO3 35 mmol/L (21-28) Arterial Blood Base Excess 10 mmol/L (-3-3) FiO2 40 CXR 1. Stable diffuse interstitial infiltrate likely due to pulmonary congestion. 2. Stable small pleural effusions. 3. Stable support lines and tubes. Micro 11/30. BLOOD CULTURE Final AMENDED REPORT: 4 OF 4 BOTTLES ARE NOW POSITIVE FOR GRAM POSITIVE COCCI IN CLUSTERS. (1 IN 4 FOR GRAM NEGATIVE RODS). 11/30. URINE CULTURE RES 1 Preliminary Streptococcus species Objective Assessment Sepsis with GPC and GNR bacteremia, 11/30 Strep spp UTI, 11/30 Lactic acidosis Suspected aspiration pneumonia. Congestive heart failure. Troponin leak. Abnormal urinalysis/urinary tract infection. Hypoxic respiratory failure. Diabetes. Sacrococcygeal decubitus. Ischemic colitis vs ulcerated tumor h/o A-fib Plan Plan of Care cont Dapto and Zosyn Monitor abx toxicities/side effects f/u cultures surgery consult for possible ischemic colitis vs tumor, daughter does not remember her last colonoscopy D/w daughters at bedside D/w nursing Critically ill Patient seen and examined. Chart reviewed in detail. Case discussed with [employer] GR[employer]ER. Agree with above plan. GUY ROLDAN APRN Dec 03, 2018 11:40 ANGELY RAMIREZ MD Dec 03, 2018 19:28
[2018-12-03] MEDS: METOPROLOL SUCC 24HR ER 25 MG TAB.ER.24H. PO SCH (12:10)
[2018-12-03] MEDS: amLODIPine BESYLATE 10 MG TABLET PO SCH (12:11)
--- NOTE | 2018-12-03 12:11 | PDOC ---
PROGRESS NOTES Subjective Subjective Patient seen and examined Objective Objective Vital Signs Date Time Temp Pulse Resp B/P (MAP) Pulse Ox O2 Delivery O2 Flow Rate FiO2 12/03/18 12:00 Mechanical Ventilator 12/03/18 11:00 98.6 80 13 183/74 (110) 100 98.6 12/01/18 01:52 15.0 Intake and Output 12/03/18 07:00 Intake Total 486.7 ml Output Total 2065 ml Balance -1578.3 ml IV Total 486.7 ml Output Urine Total 2065 ml Physical Exam Abdomen: Normal bowel sounds Heart: Regular rate General: Other (intubated) Lungs: Other (mildly decreased breath sounds) Assessment Assessment Problems Medical Problems: (1) CHF (congestive heart failure) Status: Acute (2) Renal failure Status: Acute (3) Respiratory failure Status: Acute (4) Septic shock Status: Acute (5) UTI (urinary tract infection) Status: Acute Acute respiratory failure. Remains on a ventilator. Followed by the pulmonary service. Sepsis. Antibiotics as per the ID service. DKA. Treatment per the primary service. Non-ST elevated myocardial infarction. Multifactorial with demand ischemia. Echo with normal LV function. Probable future ischemia workup based on clinical course. History of breast cancer. Treatment as above. Atrial fibrillation. Converted to atrial fibrillation. Treatment with amiodarone. History of coronary artery disease with stenting. Catheterization in March 2017 showed no significant lesions. Comment Review of Relevant I have reviewed the following items brooke (where applicable) has been applied. Labs Laboratory Tests Test 12/01/18 17:55 12/01/18 21:44 12/02/18 06:15 12/02/18 09:10 White Blood Count 7.3 x10^3/uL (4.0-11.0) 6.3 x10^3/uL (4.0-11.0) Red Blood Count 2.90 x10^6/uL (3.50-5.40) 3.00 x10^6/uL (3.50-5.40) Hemoglobin 7.2 g/dL (12.0-15.5) 7.5 g/dL (12.0-15.5) Hematocrit 22.8 % (36.0-47.0) 23.9 % (36.0-47.0) Mean Corpuscular Volume 79 fL (79-100) 80 fL (79-100) Mean Corpuscular Hemoglobin 25 pg (25-35) 25 pg (25-35) Mean Corpuscular Hemoglobin Concent 32 g/dL (31-37) 32 g/dL (31-37) Red Cell Distribution Width 22.8 % (11.5-14.5) 22.8 % (11.5-14.5) Platelet Count 137 x10^3/uL (140-400) 133 x10^3/uL (140-400) Sodium Level 145 mmol/L (136-145) 146 mmol/L (136-145) Potassium Level 3.6 mmol/L (3.5-5.1) 3.3 mmol/L (3.5-5.1) Chloride Level 103 mmol/L (98-107) 103 mmol/L (98-107) Carbon Dioxide Level 38 mmol/L (21-32) 38 mmol/L (21-32) Anion Gap 4 (6-14) 5 (6-14) Blood Urea Nitrogen 31 mg/dL (7-20) 31 mg/dL (7-20) Creatinine 2.3 mg/dL (0.6-1.0) 2.1 mg/dL (0.6-1.0) Estimated GFR (Cockcroft-Gault) 21.0 23.3 BUN/Creatinine Ratio 13 (6-20) Glucose Level 157 mg/dL (70-99) 143 mg/dL (70-99) Calcium Level 7.5 mg/dL (8.5-10.1) 7.7 mg/dL (8.5-10.1) Phosphorus Level 5.0 mg/dL (2.6-4.7) 4.9 mg/dL (2.6-4.7) Magnesium Level 2.0 mg/dL (1.8-2.4) 1.8 mg/dL (1.8-2.4) Total Bilirubin 0.5 mg/dL (0.2-1.0) Aspartate Amino Transf (AST/SGOT) 1416 U/L (15-37) Alanine Aminotransferase (ALT/SGPT) 1097 U/L (14-59) Alkaline Phosphatase 78 U/L (46-116) Total Protein 5.0 g/dL (6.4-8.2) Albumin 1.9 g/dL (3.4-5.0) Albumin/Globulin Ratio 0.6 (1.0-1.7) Glucose (Fingerstick) 128 mg/dL (70-99) Neutrophils (%) (Auto) 84 % (31-73) Lymphocytes (%) (Auto) 7 % (24-48) Monocytes (%) (Auto) 6 % (0-9) Eosinophils (%) (Auto) 2 % (0-3) Basophils (%) (Auto) 0 % (0-3) Neutrophils # (Auto) 5.3 x10^3/uL (1.8-7.7) Lymphocytes # (Auto) 0.5 x10^3/uL (1.0-4.8) Monocytes # (Auto) 0.4 x10^3/uL (0.0-1.1) Eosinophils # (Auto) 0.1 x10^3/uL (0.0-0.7) Basophils # (Auto) 0.0 x10^3/uL (0.0-0.2) Prothrombin Time 23.7 SEC (11.7-14.0) Prothromb Time International Ratio 2.1 (0.8-1.1) O2 Saturation 95 % (92-99) Arterial Blood pH 7.40 (7.35-7.45) Arterial Blood pCO2 at Patient Temp 53 mmHg (35-46) Arterial Blood pO2 at Patient Temp 87 mmHg (65-108) Arterial Blood HCO3 32 mmol/L (21-28) Arterial Blood Base Excess 7 mmol/L (-3-3) FiO2 40 Test 12/02/18 09:23 12/02/18 20:32 12/03/18 06:00 12/03/18 09:55 Glucose (Fingerstick) 139 mg/dL (70-99) 134 mg/dL (70-99) White Blood Count 5.8 x10^3/uL (4.0-11.0) Red Blood Count 3.09 x10^6/uL (3.50-5.40) Hemoglobin 7.8 g/dL (12.0-15.5) Hematocrit 24.6 % (36.0-47.0) Mean Corpuscular Volume 80 fL (79-100) Mean Corpuscular Hemoglobin 25 pg (25-35) Mean Corpuscular Hemoglobin Concent 32 g/dL (31-37) Red Cell Distribution Width 21.7 % (11.5-14.5) Platelet Count 147 x10^3/uL (140-400) Neutrophils (%) (Auto) 80 % (31-73) Lymphocytes (%) (Auto) 9 % (24-48) Monocytes (%) (Auto) 9 % (0-9) Eosinophils (%) (Auto) 2 % (0-3) Basophils (%) (Auto) 1 % (0-3) Neutrophils # (Auto) 4.6 x10^3/uL (1.8-7.7) Lymphocytes # (Auto) 0.5 x10^3/uL (1.0-4.8) Monocytes # (Auto) 0.5 x10^3/uL (0.0-1.1) Eosinophils # (Auto) 0.1 x10^3/uL (0.0-0.7) Basophils # (Auto) 0.0 x10^3/uL (0.0-0.2) Sodium Level 150 mmol/L (136-145) Potassium Level 3.4 mmol/L (3.5-5.1) Chloride Level 108 mmol/L (98-107) Carbon Dioxide Level 38 mmol/L (21-32) Anion Gap 4 (6-14) Blood Urea Nitrogen 26 mg/dL (7-20) Creatinine 1.7 mg/dL (0.6-1.0) Estimated GFR (Cockcroft-Gault) 29.7 Glucose Level 111 mg/dL (70-99) Calcium Level 7.9 mg/dL (8.5-10.1) O2 Saturation 98 % (92-99) Arterial Blood pH 7.44 (7.35-7.45) Arterial Blood pCO2 at Patient Temp 53 mmHg (35-46) Arterial Blood pO2 at Patient Temp 117 mmHg (65-108) Arterial Blood HCO3 35 mmol/L (21-28) Arterial Blood Base Excess 10 mmol/L (-3-3) FiO2 40 Laboratory Tests Test 12/02/18 20:32 12/03/18 06:00 12/03/18 09:55 Glucose (Fingerstick) 134 mg/dL (70-99) White Blood Count 5.8 x10^3/uL (4.0-11.0) Red Blood Count 3.09 x10^6/uL (3.50-5.40) Hemoglobin 7.8 g/dL (12.0-15.5) Hematocrit 24.6 % (36.0-47.0) Mean Corpuscular Volume 80 fL (79-100) Mean Corpuscular Hemoglobin 25 pg (25-35) Mean Corpuscular Hemoglobin Concent 32 g/dL (31-37) Red Cell Distribution Width 21.7 % (11.5-14.5) Platelet Count 147 x10^3/uL (140-400) Neutrophils (%) (Auto) 80 % (31-73) Lymphocytes (%) (Auto) 9 % (24-48) Monocytes (%) (Auto) 9 % (0-9) Eosinophils (%) (Auto) 2 % (0-3) Basophils (%) (Auto) 1 % (0-3) Neutrophils # (Auto) 4.6 x10^3/uL (1.8-7.7) Lymphocytes # (Auto) 0.5 x10^3/uL (1.0-4.8) Monocytes # (Auto) 0.5 x10^3/uL (0.0-1.1) Eosinophils # (Auto) 0.1 x10^3/uL (0.0-0.7) Basophils # (Auto) 0.0 x10^3/uL (0.0-0.2) Sodium Level 150 mmol/L (136-145) Potassium Level 3.4 mmol/L (3.5-5.1) Chloride Level 108 mmol/L (98-107) Carbon Dioxide Level 38 mmol/L (21-32) Anion Gap 4 (6-14) Blood Urea Nitrogen 26 mg/dL (7-20) Creatinine 1.7 mg/dL (0.6-1.0) Estimated GFR (Cockcroft-Gault) 29.7 Glucose Level 111 mg/dL (70-99) Calcium Level 7.9 mg/dL (8.5-10.1) O2 Saturation 98 % (92-99) Arterial Blood pH 7.44 (7.35-7.45) Arterial Blood pCO2 at Patient Temp 53 mmHg (35-46) Arterial Blood pO2 at Patient Temp 117 mmHg (65-108) Arterial Blood HCO3 35 mmol/L (21-28) Arterial Blood Base Excess 10 mmol/L (-3-3) FiO2 40 Microbiology 11/30/18 Urine Culture - Preliminary, Resulted 11/30/18 Urine Culture Result 1 (DEEPTI) - Preliminary, Resulted 11/30/18 Blood Culture - Final, Complete Medications Current Medications Sodium Chloride 1,000 ml @ 100 mls/hr Q10H IV Last administered on 11/30/18at 14:02; Start 11/30/18 at 11:10; Stop 11/30/18 at 21:09; Status DC Etomidate (Amidate) 20 mg STK-MED ONCE IV ; Start 11/30/18 at 11:28; Stop 11/07 07/24 at 11:29; Status DC Succinylcholine Chloride (Anectine) 200 mg STK-MED ONCE .ROUTE ; Start 11/30/18 at 11:28; Stop 11/30/18 at 11:29; Status DC Midazolam HCl (Versed) 5 mg STK-MED ONCE .ROUTE ; Start 11/30/18 at 11:31; Stop 11/30/18 at 11:32; Status DC Midazolam HCl (Versed) 2 mg 1X ONCE NS ; Start 11/30/18 at 11:45; Stop 11/30/18 at 11:46; Status DC Midazolam HCl 100 ml @ 0 mls/hr 1X ONCE IV ; Start 11/30/18 at 11:45; Stop 11/30/18 at 11:46; Status UNV Midazolam HCl 100 ml @ 0 mls/hr 1X ONCE IV Last administered on 11/30/18at 11:56; Start 11/30/18 at 11:45; Stop 11/30/18 at 11:46; Status DC Midazolam HCl (Versed) 2 mg 1X ONCE IV Last administered on 11/30/18at 11:51; Start 11/30/18 at 11:45; Stop 11/30/18 at 11:46; Status DC Piperacillin Sod/ Tazobactam Sod 3.375 gm/Sodium Chloride 50 ml @ 100 mls/hr 1X ONCE IV Last administered on 11/30/18at 12:14; Start 11/30/18 at 12:00; Stop 11/30/18 at 12:29; Status DC Vancomycin HCl 250 ml @ 250 mls/hr 1X ONCE IV Last administered on 11/30/18at 12:01; Start 11/30/18 at 11:45; Stop 11/30/18 at 12:44; Status DC Sodium Chloride 1,000 ml @ 1,000 mls/hr 1X ONCE IV Last administered on 11/30/18at 11:50; Start 11/30/18 at 11:45; Stop 11/30/18 at 12:44; Status DC Sodium Chloride 1,000 ml @ 1,000 mls/hr 1X ONCE IV Last administered on 11/30/18at 12:14; Start 11/30/18 at 12:00; Stop 11/30/18 at 12:59; Status DC Insulin Human Regular 150 ml @ 0 mls/hr 1X ONCE IV Last administered on 11/30/18at 13:41; Start 11/30/18 at 12:30; Stop 11/30/18 at 12:33; Status DC Sodium Chloride 1,000 ml @ 1,000 mls/hr 1X ONCE IV ; Start 11/30/18 at 13:15; Stop 11/30/18 at 14:14; Status DC Norepinephrine Bitartrate 250 ml @ 14.884 mls/ hr 1X ONCE IV Last administered on 11/30/18at 13:44; Start 11/30/18 at 13:15; Stop 12/01/18 at 06:02; Status DC Fentanyl Citrate 30 ml @ 0 mls/hr CONT PRN PRN IV PER PROTOCOL Last administered on 12/02/18at 08:53; Start 11/30/18 at 15:15 Naloxone HCl (Narcan) 0.4 mg PRN Q2MIN PRN IV SEE INSTRUCTIONS; Start 11/30/18 at 15:15 Sodium Chloride 1,000 ml @ 25 mls/hr Q24H IV Last administered on 11/30/18at 15:11; Start 11/30/18 at 15:11 Heparin Sodium (Porcine) (Heparin Sodium) 5,000 unit Q8HRS SQ ; Start 11/30/18 at 22:00; Status UNV Sodium Chloride (Normal Saline Flush) 3 ml QSHIFT PRN IV AFTER MEDS AND BLOOD DRAWS; Start 11/30/18 at 16:00 Senna/Docusate Sodium (Senna Plus) 1 tab BID PO Last administered on 12/02/18at 20:39; Start 11/30/18 at 21:00 Furosemide (Lasix) 20 mg 1X ONCE IVP Last administered on 11/30/18at 16:06; Start 11/30/18 at 16:00; Stop 11/30/18 at 16:03; Status DC Insulin Human Regular 150 unit/ Sodium Chloride 151.5 ml @ 0 mls/hr CONT PRN IV hyperglycemia; Start 11/30/18 at 16:00 Dextrose (Dextrose 50%-Water Syringe) 12.5 gm PRN Q15MIN PRN IV LOW BLOOD SUGAR; Start 11/30/18 at 16:00 Dextrose 250 ml PRN Q15MIN PRN IV LOW BLOOD SUGAR; Start 11/30/18 at 16:00 Magnesium Sulfate 100 ml @ 25 mls/hr 1X ONCE IV Last administered on 11/30/18at 16:38; Start 11/30/18 at 16:15; Stop 11/30/18 at 20:14; Status DC Potassium Chloride/Water 50 ml @ 50 mls/hr Q1H IV Last administered on 11/30/18at 17:52; Start 11/30/18 at 17:00; Stop 11/30/18 at 18:59; Status DC Aspirin (Aspirin Rectal Supp) 300 mg 1X ONCE MD Last administered on 11/30/18at 16:40; Start 11/30/18 at 16:15; Stop 11/30/18 at 16:20; Status DC Piperacillin Sod/ Tazobactam Sod 3.375 gm/Sodium Chloride 50 ml @ 100 mls/hr Q6HRS IV Last administered on 12/03/18at 08:27; Start 11/30/18 at 18:00 Midazolam HCl 100 ml @ 5 mls/hr CONT PRN IV SEE I/O RECORD Last administered on 12/01/18at 00:19; Start 11/30/18 at 18:15 Insulin Glargine (Lantus Syringe) 20 unit Q12HR SQ Last administered on 12/03/18at 10:36; Start 11/30/18 at 21:00 Furosemide (Lasix) 40 mg 1X ONCE IVP Last administered on 11/30/18at 21:55; Start 11/30/18 at 22:00; Stop 11/30/18 at 22:01; Status DC Daptomycin 320 mg/ Sodium Chloride 50 ml @ 100 mls/hr Q24H IV Last administered on 12/03/18at 10:30; Start 12/01/18 at 10:00 Potassium Phosphate 10 mmol/ Dextrose 103.3333 ml @ 51.667 m... Q2H IV Last administered on 12/01/18at 15:15; Start 12/01/18 at 11:30; Stop 12/01/18 at 17:29; Status DC Albumin Human 500 ml @ 125 mls/hr 1X ONCE IV Last administered on 12/01/18at 10:57; Start 12/01/18 at 11:00; Stop 12/01/18 at 14:59; Status DC Albumin Human 500 ml @ As Directed STK-MED ONCE IV ; Start 12/01/18 at 10:50; Stop 12/01/18 at 10:50; Status DC Sodium Phosphate 20 mmol/Dextrose 256.6667 ml @ 64.167 m... 1X ONCE IV ; Start 12/01/18 at 11:45; Stop 12/01/18 at 15:44; Status UNV Famotidine (Pepcid Vial) 20 mg QHS IVP Last administered on 12/02/18at 20:39; Start 12/01/18 at 21:00 Norepinephrine Bitartrate 250 ml @ 14.836 mls/ hr CONT PRN IV SEE I/O RECORD Last administered on 12/02/18at 08:37; Start 12/02/18 at 08:15 Potassium Chloride/Water 50 ml @ 50 mls/hr Q1H IV Last administered on 12/02/18at 09:42; Start 12/02/18 at 08:30; Stop 12/02/18 at 10:29; Status DC Magnesium Sulfate 50 ml @ 25 mls/hr 1X ONCE IV Last administered on 12/02/18at 08:38; Start 12/02/18 at 08:15; Stop 12/02/18 at 10:14; Status DC Amiodarone HCl 150 mg/Dextrose 103 ml @ 618 mls/hr 1X ONCE IV Last administered on 12/02/18at 10:23; Start 12/02/18 at 09:45; Stop 12/02/18 at 09:54; Status DC Digoxin (Lanoxin) 500 mcg 1X ONCE IV Last administered on 12/02/18at 12:21; Start 12/02/18 at 12:00; Stop 12/02/18 at 12:01; Status DC Albuterol/ Ipratropium (Duoneb) 3 ml RTQID NEB Last administered on 12/03/18at 08:16; Start 12/02/18 at 20:00 Insulin Human Lispro (HumaLOG) 0-9 UNITS TIDWMEALS SQ ; Start 12/03/18 at 08:00 Dextrose (Dextrose 50%-Water Syringe) 12.5 gm PRN Q15MIN PRN IV SEE COMMENTS; Start 12/02/18 at 18:30; Status UNV Acetaminophen (Tylenol) 650 mg PRN Q6HRS PRN PEG MILD PAIN / TEMP; Start 12/02/18 at 18:30 Ondansetron HCl (Zofran) 4 mg PRN Q6HRS PRN IVP NAUSEA/VOMITING; Start 12/02/18 at 18:30 Propofol 100 ml @ 1.187 mls/ hr CONT PRN IV SEE I/O RECORD Last administered on 12/02/18at 19:38; Start 12/02/18 at 19:30 Oxycodone/ Acetaminophen (Percocet 5/325) 1 tab PRN Q4HRS PRN PO SEVERE PAIN 7- 10; Start 12/03/18 at 02:30; Stop 12/03/18 at 03:10; Status DC Diphenhydramine HCl (Benadryl) 25 mg PRN Q6HRS PRN IVP ITCHING; Start 12/03/18 at 02:30; Stop 12/03/18 at 03:10; Status DC Hydralazine HCl (Apresoline Inj) 10 mg PRN Q4HRS PRN IVP ELEVATED BP, SEE COMMENTS Last administered on 12/03/18at 10:05; Start 12/03/18 at 10:00 Hydralazine HCl (Apresoline Inj) 20 mg STK-MED ONCE .ROUTE ; Start 12/03/18 at 10:01; Stop 12/03/18 at 10:02; Status DC Amino Acids/ Glycerin/ Electrolytes 1,000 ml @ 50 mls/hr Q20H IV Last administered on 12/03/18at 10:37; Start 12/03/18 at 10:30 Amlodipine Besylate (Norvasc) 10 mg DAILY PO ; Start 12/03/18 at 12:30 Hydralazine HCl (Apresoline) 50 mg TID PO ; Start 12/03/18 at 14:00 Isosorbide Mononitrate (Imdur) 30 mg DAILY PO ; Start 12/03/18 at 12:30 Metoprolol Succinate (Toprol Xl) 25 mg DAILY PO ; Start 12/03/18 at 12:30 Active Scripts Active Humalog (Insulin Lispro) 100 Unit/1 Ml Insuln.pen 10 Units SQ TIDWMEALS MDD 1 14 Days Lantus Solostar (Insulin Glargine,Hum.rec.anlog) 100 Unit/1 Ml Insuln.pen 30 Units SQ QHS 14 Days Gabapentin (Gabapentin) 100 Mg Capsule 200 Mg PO TID MDD 1 14 Days Hydrocodone-Apap 5-325 (Hydrocodone Bit/Acetaminophen) 1 Each Tablet 1 Tab PO PRN Q6HRS PRN Amlodipine Besylate 10 Mg Tablet 10 Mg PO DAILY MDD 1 Clonidine Tts-2 (Clonidine) 1 Each Patch.tdwk 1 Patch TD WEEKLY MDD 1 Hydralazine Hcl 50 Mg Tablet 50 Mg PO TID MDD 1 Reported Potassium Chloride 10 Meq Tablet.er 10 Meq PO DAILY Furosemide 40 Mg Tablet 40 Mg PO BID Fosamax (Alendronate Sodium) 70 Mg Tablet 1 Tab PO WEEKLY wednesday Vitamin D2 (Ergocalciferol (Vitamin D2)) 50,000 Unit Capsule 1 Cap PO TWICE WEEKLY WED AND wed Metoprolol Succinate ( Xl ) (Metoprolol Succinate) 25 Mg Tab.er.24h 1 Tab PO DAILY Voltaren (Diclofenac Sodium) 100 Gm Gel..gram. 1 Gm TP QID Ferrous Sulfate 325 Mg Tablet 325 Mg PO DAILY Colestipol Hcl 1 Gm Tablet 1 Gm PO DAILY Oxybutynin Chloride 5 Mg Tablet 5 Mg PO TID Lipitor (Atorvastatin Calcium) 80 Mg Tablet 80 Mg PO HS Levothyroxine Sodium 150 Mcg Tablet 1 Tab PO DAILY Isosorbide Mononitrate Er (Isosorbide Mononitrate) 30 Mg Tab.er.24h 1 Tab PO DAILY Lantus (Insulin Glargine,Hum.rec.anlog) 100 Unit/1 Ml Vial 52 Unit SQ BID MAY INCREASE FOR BLOOD SUGARS GREATER THAN 200 FASTING Duoneb 0.5-3(2.5) Mg/3 Ml (Albuterol/Ipratropium) 3 Ml Ampul.neb 3 Ml IH QID Ventolin Hfa Inhaler (Albuterol Sulfate) 18 Gm Hfa.aer.ad 2 Puff INH Q4HRS PRN Venlafaxine Hcl Er (Venlafaxine Hcl) 150 Mg Cap.er.24h 150 Mg PO DAILY Novolog Flexpen (Insulin Aspart) 100 Unit/1 Ml Insuln.pen 30 Unit SQ TIDAC Pantoprazole Sodium (Pantoprazole Sodium) 40 Mg Tablet.dr 40 Mg PO DAILY Trazodone Hcl 100 Mg Tablet 200 Mg PO HS Vitals/I & O Vital Sign - Last 24 Hours 12/02/18 12/02/18 12/02/18 12/02/18 12:21 12:49 13:00 14:00 Pulse 123 108 108 Resp 12 12 B/P (MAP) 139/69 154/86 (108) 177/ Pulse Ox 99 99 98 O2 Delivery Ventilator Ventilator Ventilator 12/02/18 12/02/18 12/02/18 12/02/18 14:10 15:00 15:57 16:00 Pulse 98 Resp 12 B/P (MAP) 70/ 162/87 (112) Pulse Ox 100 99 O2 Delivery Ventilator Ventilator Mechanical Ventilator 12/02/18 12/02/18 12/02/18 12/02/18 16:00 17:00 17:25 18:00 Temp 98.8 98.8 Pulse 103 98 106 Resp 12 12 12 B/P (MAP) 163/79 (107) 128/58 (81) 129/59 (82) Pulse Ox 100 100 100 100 O2 Delivery Ventilator Ventilator Ventilator Ventilator 12/02/18 12/02/18 12/02/18 12/02/18 19:00 20:00 20:00 20:04 Temp 98.8 98.8 Pulse 113 98 Resp 12 12 B/P (MAP) 129/83 (98) 123/64 (83) Pulse Ox 100 100 100 O2 Delivery Ventilator Ventilator Mechanical Ventilator Ventilator 12/02/18 12/02/18 12/02/18 12/02/18 21:00 22:00 23:00 23:20 Pulse 101 113 121 Resp 12 12 12 B/P (MAP) 134/60 (84) 134/65 (88) 148/67 (94) Pulse Ox 100 100 100 100 O2 Delivery Ventilator Ventilator Ventilator Ventilator 12/03/18 12/03/18 12/03/18 12/03/18 00:00 00:00 01:00 01:05 Temp 98.7 98.7 Pulse 104 108 Resp 12 12 B/P (MAP) 137/71 (93) 131/72 (91) Pulse Ox 100 100 100 O2 Delivery Ventilator Mechanical Ventilator Ventilator Ventilator 12/03/18 12/03/18 12/03/18 12/03/18 02:00 03:00 03:30 04:00 Pulse 100 90 Resp 12 12 B/P (MAP) 106/49 (68) 135/66 (89) Pulse Ox 100 100 100 O2 Delivery Ventilator Ventilator Ventilator Mechanical Ventilator 12/03/18 12/03/18 12/03/18 12/03/18 04:00 05:00 05:15 06:00 Temp 98.4 98.4 Pulse 97 97 112 Resp 12 12 12 B/P (MAP) 142/58 (86) 119/55 (76) 147/64 (91) Pulse Ox 100 100 95 100 O2 Delivery Ventilator Ventilator Ventilator Ventilator 12/03/18 12/03/18 12/03/18 12/03/18 07:00 08:00 08:00 08:16 Temp 97.2 97.2 Pulse 70 74 Resp 12 11 B/P (MAP) 176/65 (102) 193/72 (112) Pulse Ox 100 100 99 O2 Delivery Ventilator Mechanical Ventilator Ventilator Ventilator 12/03/18 12/03/18 12/03/18 12/03/18 09:00 10:00 10:05 11:00 Temp 98.6 98.6 Pulse 112 74 72 80 Resp 12 12 13 B/P (MAP) 214/78 (123) 191/57 (101) 194/77 183/74 (110) Pulse Ox 100 100 100 O2 Delivery Ventilator Ventilator Ventilator 12/03/18 12:00 O2 Delivery Mechanical Ventilator Intake and Output 12/02/18 12/02/18 12/03/18 15:00 23:00 07:00 Intake Total 378 ml 56 ml 52.7 ml Output Total 960 ml 695 ml 410 ml Balance -582 ml -639 ml -357.3 ml Nutrition Consultation Dietary Evaluation: Recommendations by RD: Add supplement feedings Comments: NPO day 2, REC TF for total nutrition with protein module due to skin breakdown Expected Outcomes/Goals: to meet > 75% est nutr needs via TF -nutrition support improved wound status Interpretation of weight loss: >10% in 6 months Malnutrition Findings: Body Fat Depletion (Non Severe: Mild Depletion Weight Status: Overweight WINSTON KHAN MD Dec 03, 2018 12:11
[2018-12-03 12:26] LABS: BASE EXCESS ABG 11 mmol/L (-3-3); HCO3 ABG 37 mmol/L (21-28); PO2 ABG 106 mmHg (65-108); SAT O2 ABG 98 % (92-99)
[2018-12-03] MEDS ORDERED: ISOSORBIDE MONONITRATE ER 30 MG TAB.ER.24H PO SCH (12:30)
[2018-12-03 12:33] LABS: FIO2 ABG 40; PCO2 ABG 62 mmHg (35-46)
--- NOTE | 2018-12-03 14:19 | PDOC ---
PROGRESS NOTES Subjective Subjective SEEN IN FOLLOW UP OF CKD 3 AND ARF Objective Objective Vital Signs Date Time Temp Pulse Resp B/P (MAP) Pulse Ox O2 Delivery O2 Flow Rate FiO2 12/03/18 12:11 85 208/76 12/03/18 12:08 97 Ventilator 12/03/18 12:00 11 12/03/18 11:00 98.6 98.6 12/01/18 01:52 15.0 Intake and Output 12/03/18 07:00 Intake Total 486.7 ml Output Total 2065 ml Balance -1578.3 ml IV Total 486.7 ml Output Urine Total 2065 ml Physical Exam Abdomen: Normal bowel sounds, Soft, No tenderness, No hepatosplenomegaly, No masses Heart: Regular rate, Normal S1, Normal S2, No murmurs, Gallops Extremities: No clubbing, No cyanosis, No edema, Normal pulses, No tenderness/swelling General: Other (DROWSEY) Lungs: Other (BILAT RNONCHI) Neck: Supple, No JVD, No thyromegaly Diagnosis RENAL FAILURE: Chronic (CKD stage III) Assessment Assessment Problems Medical Problems: (1) CHF (congestive heart failure) Status: Acute (2) Renal failure Status: Acute (3) Respiratory failure Status: Acute (4) Septic shock Status: Acute (5) UTI (urinary tract infection) Status: Acute Plan Plan of Care NEARLY AT BASELINE GFR. CONT TO FOLLOW AND TREND LAB Comment Review of Relevant I have reviewed the following items brooke (where applicable) has been applied. Labs Laboratory Tests Test 12/01/18 17:55 12/01/18 21:44 12/02/18 06:15 12/02/18 09:10 White Blood Count 7.3 x10^3/uL (4.0-11.0) 6.3 x10^3/uL (4.0-11.0) Red Blood Count 2.90 x10^6/uL (3.50-5.40) 3.00 x10^6/uL (3.50-5.40) Hemoglobin 7.2 g/dL (12.0-15.5) 7.5 g/dL (12.0-15.5) Hematocrit 22.8 % (36.0-47.0) 23.9 % (36.0-47.0) Mean Corpuscular Volume 79 fL (79-100) 80 fL (79-100) Mean Corpuscular Hemoglobin 25 pg (25-35) 25 pg (25-35) Mean Corpuscular Hemoglobin Concent 32 g/dL (31-37) 32 g/dL (31-37) Red Cell Distribution Width 22.8 % (11.5-14.5) 22.8 % (11.5-14.5) Platelet Count 137 x10^3/uL (140-400) 133 x10^3/uL (140-400) Sodium Level 145 mmol/L (136-145) 146 mmol/L (136-145) Potassium Level 3.6 mmol/L (3.5-5.1) 3.3 mmol/L (3.5-5.1) Chloride Level 103 mmol/L (98-107) 103 mmol/L (98-107) Carbon Dioxide Level 38 mmol/L (21-32) 38 mmol/L (21-32) Anion Gap 4 (6-14) 5 (6-14) Blood Urea Nitrogen 31 mg/dL (7-20) 31 mg/dL (7-20) Creatinine 2.3 mg/dL (0.6-1.0) 2.1 mg/dL (0.6-1.0) Estimated GFR (Cockcroft-Gault) 21.0 23.3 BUN/Creatinine Ratio 13 (6-20) Glucose Level 157 mg/dL (70-99) 143 mg/dL (70-99) Calcium Level 7.5 mg/dL (8.5-10.1) 7.7 mg/dL (8.5-10.1) Phosphorus Level 5.0 mg/dL (2.6-4.7) 4.9 mg/dL (2.6-4.7) Magnesium Level 2.0 mg/dL (1.8-2.4) 1.8 mg/dL (1.8-2.4) Total Bilirubin 0.5 mg/dL (0.2-1.0) Aspartate Amino Transf (AST/SGOT) 1416 U/L (15-37) Alanine Aminotransferase (ALT/SGPT) 1097 U/L (14-59) Alkaline Phosphatase 78 U/L (46-116) Total Protein 5.0 g/dL (6.4-8.2) Albumin 1.9 g/dL (3.4-5.0) Albumin/Globulin Ratio 0.6 (1.0-1.7) Glucose (Fingerstick) 128 mg/dL (70-99) Neutrophils (%) (Auto) 84 % (31-73) Lymphocytes (%) (Auto) 7 % (24-48) Monocytes (%) (Auto) 6 % (0-9) Eosinophils (%) (Auto) 2 % (0-3) Basophils (%) (Auto) 0 % (0-3) Neutrophils # (Auto) 5.3 x10^3/uL (1.8-7.7) Lymphocytes # (Auto) 0.5 x10^3/uL (1.0-4.8) Monocytes # (Auto) 0.4 x10^3/uL (0.0-1.1) Eosinophils # (Auto) 0.1 x10^3/uL (0.0-0.7) Basophils # (Auto) 0.0 x10^3/uL (0.0-0.2) Prothrombin Time 23.7 SEC (11.7-14.0) Prothromb Time International Ratio 2.1 (0.8-1.1) O2 Saturation 95 % (92-99) Arterial Blood pH 7.40 (7.35-7.45) Arterial Blood pCO2 at Patient Temp 53 mmHg (35-46) Arterial Blood pO2 at Patient Temp 87 mmHg (65-108) Arterial Blood HCO3 32 mmol/L (21-28) Arterial Blood Base Excess 7 mmol/L (-3-3) FiO2 40 Test 12/02/18 09:23 12/02/18 20:32 12/03/18 06:00 12/03/18 09:55 Glucose (Fingerstick) 139 mg/dL (70-99) 134 mg/dL (70-99) White Blood Count 5.8 x10^3/uL (4.0-11.0) Red Blood Count 3.09 x10^6/uL (3.50-5.40) Hemoglobin 7.8 g/dL (12.0-15.5) Hematocrit 24.6 % (36.0-47.0) Mean Corpuscular Volume 80 fL (79-100) Mean Corpuscular Hemoglobin 25 pg (25-35) Mean Corpuscular Hemoglobin Concent 32 g/dL (31-37) Red Cell Distribution Width 21.7 % (11.5-14.5) Platelet Count 147 x10^3/uL (140-400) Neutrophils (%) (Auto) 80 % (31-73) Lymphocytes (%) (Auto) 9 % (24-48) Monocytes (%) (Auto) 9 % (0-9) Eosinophils (%) (Auto) 2 % (0-3) Basophils (%) (Auto) 1 % (0-3) Neutrophils # (Auto) 4.6 x10^3/uL (1.8-7.7) Lymphocytes # (Auto) 0.5 x10^3/uL (1.0-4.8) Monocytes # (Auto) 0.5 x10^3/uL (0.0-1.1) Eosinophils # (Auto) 0.1 x10^3/uL (0.0-0.7) Basophils # (Auto) 0.0 x10^3/uL (0.0-0.2) Sodium Level 150 mmol/L (136-145) Potassium Level 3.4 mmol/L (3.5-5.1) Chloride Level 108 mmol/L (98-107) Carbon Dioxide Level 38 mmol/L (21-32) Anion Gap 4 (6-14) Blood Urea Nitrogen 26 mg/dL (7-20) Creatinine 1.7 mg/dL (0.6-1.0) Estimated GFR (Cockcroft-Gault) 29.7 Glucose Level 111 mg/dL (70-99) Calcium Level 7.9 mg/dL (8.5-10.1) O2 Saturation 98 % (92-99) Arterial Blood pH 7.44 (7.35-7.45) Arterial Blood pCO2 at Patient Temp 53 mmHg (35-46) Arterial Blood pO2 at Patient Temp 117 mmHg (65-108) Arterial Blood HCO3 35 mmol/L (21-28) Arterial Blood Base Excess 10 mmol/L (-3-3) FiO2 40 Test 12/03/18 12:20 12/03/18 12:27 O2 Saturation 98 % (92-99) Arterial Blood pH 7.39 (7.35-7.45) Arterial Blood pCO2 at Patient Temp 62 mmHg (35-46) Arterial Blood pO2 at Patient Temp 106 mmHg (65-108) Arterial Blood HCO3 37 mmol/L (21-28) Arterial Blood Base Excess 11 mmol/L (-3-3) FiO2 40 Glucose (Fingerstick) 114 mg/dL (70-99) Laboratory Tests Test 12/02/18 20:32 12/03/18 06:00 12/03/18 09:55 12/03/18 12:20 Glucose (Fingerstick) 134 mg/dL (70-99) White Blood Count 5.8 x10^3/uL (4.0-11.0) Red Blood Count 3.09 x10^6/uL (3.50-5.40) Hemoglobin 7.8 g/dL (12.0-15.5) Hematocrit 24.6 % (36.0-47.0) Mean Corpuscular Volume 80 fL (79-100) Mean Corpuscular Hemoglobin 25 pg (25-35) Mean Corpuscular Hemoglobin Concent 32 g/dL (31-37) Red Cell Distribution Width 21.7 % (11.5-14.5) Platelet Count 147 x10^3/uL (140-400) Neutrophils (%) (Auto) 80 % (31-73) Lymphocytes (%) (Auto) 9 % (24-48) Monocytes (%) (Auto) 9 % (0-9) Eosinophils (%) (Auto) 2 % (0-3) Basophils (%) (Auto) 1 % (0-3) Neutrophils # (Auto) 4.6 x10^3/uL (1.8-7.7) Lymphocytes # (Auto) 0.5 x10^3/uL (1.0-4.8) Monocytes # (Auto) 0.5 x10^3/uL (0.0-1.1) Eosinophils # (Auto) 0.1 x10^3/uL (0.0-0.7) Basophils # (Auto) 0.0 x10^3/uL (0.0-0.2) Sodium Level 150 mmol/L (136-145) Potassium Level 3.4 mmol/L (3.5-5.1) Chloride Level 108 mmol/L (98-107) Carbon Dioxide Level 38 mmol/L (21-32) Anion Gap 4 (6-14) Blood Urea Nitrogen 26 mg/dL (7-20) Creatinine 1.7 mg/dL (0.6-1.0) Estimated GFR (Cockcroft-Gault) 29.7 Glucose Level 111 mg/dL (70-99) Calcium Level 7.9 mg/dL (8.5-10.1) O2 Saturation 98 % (92-99) 98 % (92-99) Arterial Blood pH 7.44 (7.35-7.45) 7.39 (7.35-7.45) Arterial Blood pCO2 at Patient Temp 53 mmHg (35-46) 62 mmHg (35-46) Arterial Blood pO2 at Patient Temp 117 mmHg (65-108) 106 mmHg (65-108) Arterial Blood HCO3 35 mmol/L (21-28) 37 mmol/L (21-28) Arterial Blood Base Excess 10 mmol/L (-3-3) 11 mmol/L (-3-3) FiO2 40 40 Test 12/03/18 12:27 Glucose (Fingerstick) 114 mg/dL (70-99) Microbiology 11/30/18 Urine Culture - Preliminary, Resulted 11/30/18 Urine Culture Result 1 (DEEPTI) - Preliminary, Resulted 11/30/18 Blood Culture - Final, Complete Medications Current Medications Sodium Chloride 1,000 ml @ 100 mls/hr Q10H IV Last administered on 11/30/18at 14:02; Start 11/30/18 at 11:10; Stop 11/30/18 at 21:09; Status DC Etomidate (Amidate) 20 mg STK-MED ONCE IV ; Start 11/30/18 at 11:28; Stop 11/30/18 at 11:29; Status DC Succinylcholine Chloride (Anectine) 200 mg STK-MED ONCE .ROUTE ; Start 11/30/18 at 11:28; Stop 11/30/18 at 11:29; Status DC Midazolam HCl (Versed) 5 mg STK-MED ONCE .ROUTE ; Start 11/30/18 at 11:31; Stop 11/30/18 at 11:32; Status DC Midazolam HCl (Versed) 2 mg 1X ONCE NS ; Start 11/30/18 at 11:45; Stop 11/30/18 at 11:46; Status DC Midazolam HCl 100 ml @ 0 mls/hr 1X ONCE IV ; Start 11/30/18 at 11:45; Stop 11/30/18 at 11:46; Status UNV Midazolam HCl 100 ml @ 0 mls/hr 1X ONCE IV Last administered on 11/30/18at 11:56; Start 11/30/18 at 11:45; Stop 11/30/18 at 11:46; Status DC Midazolam HCl (Versed) 2 mg 1X ONCE IV Last administered on 11/30/18at 11:51; Start 11/30/18 at 11:45; Stop 11/30/18 at 11:46; Status DC Piperacillin Sod/ Tazobactam Sod 3.375 gm/Sodium Chloride 50 ml @ 100 mls/hr 1X ONCE IV Last administered on 11/30/18at 12:14; Start 11/30/18 at 12:00; Stop 11/30/18 at 12:29; Status DC Vancomycin HCl 250 ml @ 250 mls/hr 1X ONCE IV Last administered on 11/30/18at 12:01; Start 11/30/18 at 11:45; Stop 11/30/18 at 12:44; Status DC Sodium Chloride 1,000 ml @ 1,000 mls/hr 1X ONCE IV Last administered on 11/30/18at 11:50; Start 11/30/18 at 11:45; Stop 11/30/18 at 12:44; Status DC Sodium Chloride 1,000 ml @ 1,000 mls/hr 1X ONCE IV Last administered on 11/30/18at 12:14; Start 11/30/18 at 12:00; Stop 11/30/18 at 12:59; Status DC Insulin Human Regular 150 ml @ 0 mls/hr 1X ONCE IV Last administered on 11/30/18at 13:41; Start 11/30/18 at 12:30; Stop 11/30/18 at 12:33; Status DC Sodium Chloride 1,000 ml @ 1,000 mls/hr 1X ONCE IV ; Start 11/30/18 at 13:15; Stop 11/30/18 at 14:14; Status DC Norepinephrine Bitartrate 250 ml @ 14.884 mls/ hr 1X ONCE IV Last administered on 11/30/18at 13:44; Start 11/30/18 at 13:15; Stop 12/01/18 at 06:02; Status DC Fentanyl Citrate 30 ml @ 0 mls/hr CONT PRN PRN IV PER PROTOCOL Last administered on 12/02/18at 08:53; Start 11/30/18 at 15:15 Naloxone HCl (Narcan) 0.4 mg PRN Q2MIN PRN IV SEE INSTRUCTIONS; Start 11/30/18 at 15:15 Sodium Chloride 1,000 ml @ 25 mls/hr Q24H IV Last administered on 11/30/18at 15:11; Start 11/30/18 at 15:11 Heparin Sodium (Porcine) (Heparin Sodium) 5,000 unit Q8HRS SQ ; Start 11/30/18 at 22:00; Status UNV Sodium Chloride (Normal Saline Flush) 3 ml QSHIFT PRN IV AFTER MEDS AND BLOOD DRAWS; Start 11/30/18 at 16:00 Senna/Docusate Sodium (Senna Plus) 1 tab BID PO Last administered on 12/02/18at 20:39; Start 11/30/18 at 21:00 Furosemide (Lasix) 20 mg 1X ONCE IVP Last administered on 11/30/18at 16:06; Start 11/30/18 at 16:00; Stop 11/30/18 at 16:03; Status DC Insulin Human Regular 150 unit/ Sodium Chloride 151.5 ml @ 0 mls/hr CONT PRN IV hyperglycemia; Start 11/30/18 at 16:00 Dextrose (Dextrose 50%-Water Syringe) 12.5 gm PRN Q15MIN PRN IV LOW BLOOD SUGAR; Start 11/30/18 at 16:00 Dextrose 250 ml PRN Q15MIN PRN IV LOW BLOOD SUGAR; Start 11/30/18 at 16:00 Magnesium Sulfate 100 ml @ 25 mls/hr 1X ONCE IV Last administered on 11/30/18at 16:38; Start 11/30/18 at 16:15; Stop 11/30/18 at 20:14; Status DC Potassium Chloride/Water 50 ml @ 50 mls/hr Q1H IV Last administered on 11/30/18at 17:52; Start 11/30/18 at 17:00; Stop 11/30/18 at 18:59; Status DC Aspirin (Aspirin Rectal Supp) 300 mg 1X ONCE [place] Last administered on 11/30/18at 16:40; Start 11/30/18 at 16:15; Stop 11/30/18 at 16:20; Status DC Piperacillin Sod/ Tazobactam Sod 3.375 gm/Sodium Chloride 50 ml @ 100 mls/hr Q6HRS IV Last administered on 12/03/18at 12:11; Start 11/30/18 at 18:00 Midazolam HCl 100 ml @ 5 mls/hr CONT PRN IV SEE I/O RECORD Last administered on 12/01/18at 00:19; Start 11/30/18 at 18:15 Insulin Glargine (Lantus Syringe) 20 unit Q12HR SQ Last administered on 12/03/18at 10:36; Start 11/30/18 at 21:00 Furosemide (Lasix) 40 mg 1X ONCE IVP Last administered on 11/30/18at 21:55; Start 11/30/18 at 22:00; Stop 11/30/18 at 22:01; Status DC Daptomycin 320 mg/ Sodium Chloride 50 ml @ 100 mls/hr Q24H IV Last administered on 12/03/18at 10:30; Start 12/01/18 at 10:00 Potassium Phosphate 10 mmol/ Dextrose 103.3333 ml @ 51.667 m... Q2H IV Last administered on 12/01/18at 15:15; Start 12/01/18 at 11:30; Stop 12/01/18 at 17:29; Status DC Albumin Human 500 ml @ 125 mls/hr 1X ONCE IV Last administered on 12/01/18at 10:57; Start 12/01/18 at 11:00; Stop 12/01/18 at 14:59; Status DC Albumin Human 500 ml @ As Directed STK-MED ONCE IV ; Start 12/01/18 at 10:50; Stop 12/01/18 at 10:50; Status DC Sodium Phosphate 20 mmol/Dextrose 256.6667 ml @ 64.167 m... 1X ONCE IV ; Start 12/01/18 at 11:45; Stop 12/01/18 at 15:44; Status UNV Famotidine (Pepcid Vial) 20 mg QHS IVP Last administered on 12/02/18at 20:39; Start 12/01/18 at 21:00 Norepinephrine Bitartrate 250 ml @ 14.836 mls/ hr CONT PRN IV SEE I/O RECORD Last administered on 12/02/18at 08:37; Start 12/02/18 at 08:15 Potassium Chloride/Water 50 ml @ 50 mls/hr Q1H IV Last administered on 12/02/18at 09:42; Start 12/02/18 at 08:30; Stop 12/02/18 at 10:29; Status DC Magnesium Sulfate 50 ml @ 25 mls/hr 1X ONCE IV Last administered on 12/02/18at 08:38; Start 12/02/18 at 08:15; Stop 12/02/18 at 10:14; Status DC Amiodarone HCl 150 mg/Dextrose 103 ml @ 618 mls/hr 1X ONCE IV Last administered on 12/02/18at 10:23; Start 12/02/18 at 09:45; Stop 12/02/18 at 09:54; Status DC Digoxin (Lanoxin) 500 mcg 1X ONCE IV Last administered on 12/02/18at 12:21; Start 12/02/18 at 12:00; Stop 12/02/18 at 12:01; Status DC Albuterol/ Ipratropium (Duoneb) 3 ml RTQID NEB Last administered on 12/03/18at 12:30; Start 12/02/18 at 20:00 Insulin Human Lispro (HumaLOG) 0-9 UNITS TIDWMEALS SQ ; Start 12/03/18 at 08:00 Dextrose (Dextrose 50%-Water Syringe) 12.5 gm PRN Q15MIN PRN IV SEE COMMENTS; Start 12/02/18 at 18:30; Status UNV Acetaminophen (Tylenol) 650 mg PRN Q6HRS PRN PEG MILD PAIN / TEMP; Start 12/02/18 at 18:30 Ondansetron HCl (Zofran) 4 mg PRN Q6HRS PRN IVP NAUSEA/VOMITING; Start 12/02/18 at 18:30 Propofol 100 ml @ 1.187 mls/ hr CONT PRN IV SEE I/O RECORD Last administered on 12/02/18at 19:38; Start 12/02/18 at 19:30 Oxycodone/ Acetaminophen (Percocet 5/325) 1 tab PRN Q4HRS PRN PO SEVERE PAIN 7- 10; Start 12/03/18 at 02:30; Stop 12/03/18 at 03:10; Status DC Diphenhydramine HCl (Benadryl) 25 mg PRN Q6HRS PRN IVP ITCHING; Start 12/03/18 at 02:30; Stop 12/03/18 at 03:10; Status DC Hydralazine HCl (Apresoline Inj) 10 mg PRN Q4HRS PRN IVP ELEVATED BP, SEE COM MENTS Last administered on 12/03/18at 10:05; Start 12/03/18 at 10:00 Hydralazine HCl (Apresoline Inj) 20 mg STK-MED ONCE .ROUTE ; Start 12/03/18 at 10:01; Stop 12/03/18 at 10:02; Status DC Amino Acids/ Glycerin/ Electrolytes 1,000 ml @ 50 mls/hr Q20H IV Last administered on 12/03/18at 10:37; Start 12/03/18 at 10:30 Amlodipine Besylate (Norvasc) 10 mg DAILY PO Last administered on 12/03/18at 12:11; Start 12/03/18 at 12:30 Hydralazine HCl (Apresoline) 50 mg TID PO ; Start 12/03/18 at 14:00 Isosorbide Mononitrate (Imdur) 30 mg DAILY PO Last administered on 12/03/18at 12:11; Start 12/03/18 at 12:30 Metoprolol Succinate (Toprol Xl) 25 mg DAILY PO Last administered on 12/03/18at 12:10; Start 12/03/18 at 12:30 Active Scripts Active Humalog (Insulin Lispro) 100 Unit/1 Ml Insuln.pen 10 Units SQ TIDWMEALS MDD 1 14 Days Lantus Solostar (Insulin Glargine,Hum.rec.anlog) 100 Unit/1 Ml Insuln.pen 30 Units SQ QHS 14 Days Gabapentin (Gabapentin) 100 Mg Capsule 200 Mg PO TID MDD 1 14 Days Hydrocodone-Apap 5-325 (Hydrocodone Bit/Acetaminophen) 1 Each Tablet 1 Tab PO PRN Q6HRS PRN Amlodipine Besylate 10 Mg Tablet 10 Mg PO DAILY MDD 1 Clonidine Tts-2 (Clonidine) 1 Each Patch.tdwk 1 Patch TD WEEKLY MDD 1 Hydralazine Hcl 50 Mg Tablet 50 Mg PO TID MDD 1 Reported Potassium Chloride 10 Meq Tablet.er 10 Meq PO DAILY Furosemide 40 Mg Tablet 40 Mg PO BID Fosamax (Alendronate Sodium) 70 Mg Tablet 1 Tab PO WEEKLY wednesday Vitamin D2 (Ergocalciferol (Vitamin D2)) 50,000 Unit Capsule 1 Cap PO TWICE WEEKLY WED AND wed Metoprolol Succinate ( Xl ) (Metoprolol Succinate) 25 Mg Tab.er.24h 1 Tab PO DAILY Voltaren (Diclofenac Sodium) 100 Gm Gel..gram. 1 Gm TP QID Ferrous Sulfate 325 Mg Tablet 325 Mg PO DAILY Colestipol Hcl 1 Gm Tablet 1 Gm PO DAILY Oxybutynin Chloride 5 Mg Tablet 5 Mg PO TID Lipitor (Atorvastatin Calcium) 80 Mg Tablet 80 Mg PO HS Levothyroxine Sodium 150 Mcg Tablet 1 Tab PO DAILY Isosorbide Mononitrate Er (Isosorbide Mononitrate) 30 Mg Tab.er.24h 1 Tab PO DA EDYTA Lantus (Insulin Glargine,Hum.rec.anlog) 100 Unit/1 Ml Vial 52 Unit SQ BID MAY INCREASE FOR BLOOD SUGARS GREATER THAN 200 FASTING Duoneb 0.5-3(2.5) Mg/3 Ml (Albuterol/Ipratropium) 3 Ml Ampul.neb 3 Ml IH QID Ventolin Hfa Inhaler (Albuterol Sulfate) 18 Gm Hfa.aer.ad 2 Puff INH Q4HRS PRN Venlafaxine Hcl Er (Venlafaxine Hcl) 150 Mg Cap.er.24h 150 Mg PO DAILY Novolog Flexpen (Insulin Aspart) 100 Unit/1 Ml Insuln.pen 30 Unit SQ TIDAC Pantoprazole Sodium (Pantoprazole Sodium) 40 Mg Tablet.dr 40 Mg PO DAILY Trazodone Hcl 100 Mg Tablet 200 Mg PO HS Vitals/I & O Vital Sign - Last 24 Hours 12/02/18 12/02/18 12/02/18 12/02/18 15:00 15:57 16:00 16:00 Temp 98.8 98.8 Pulse 98 103 Resp 12 12 B/P (MAP) 162/87 (112) 163/79 (107) Pulse Ox 100 99 100 O2 Delivery Ventilator Ventilator Mechanical Ventilator Ventilator 12/02/18 12/02/18 12/02/18 12/02/18 17:00 17:25 18:00 19:00 Temp 98.8 98.8 Pulse 98 106 113 Resp 12 12 12 B/P (MAP) 128/58 (81) 129/59 (82) 129/83 (98) Pulse Ox 100 100 100 100 O2 Delivery Ventilator Ventilator Ventilator Ventilator 12/02/18 12/02/18 12/02/18 12/02/18 20:00 20:00 20:04 21:00 Pulse 98 101 Resp 12 12 B/P (MAP) 123/64 (83) 134/60 (84) Pulse Ox 100 100 100 O2 Delivery Ventilator Mechanical Ventilator Ventilator Ventilator 12/02/18 12/02/18 12/02/18 12/03/18 22:00 23:00 23:20 00:00 Temp 98.7 98.7 Pulse 113 121 104 Resp 12 12 12 B/P (MAP) 134/65 (88) 148/67 (94) 137/71 (93) Pulse Ox 100 100 100 100 O2 Delivery Ventilator Ventilator Ventilator Ventilator 12/03/18 12/03/18 12/03/18 12/03/18 00:00 01:00 01:05 02:00 Pulse 108 100 Resp 12 12 B/P (MAP) 131/72 (91) 106/49 (68) Pulse Ox 100 100 100 O2 Delivery Mechanical Ventilator Ventilator Ventilator Ventilator 12/03/18 12/03/18 12/03/18 12/03/18 03:00 03:30 04:00 04:00 Temp 98.4 98.4 Pulse 90 97 Resp 12 12 B/P (MAP) 135/66 (89) 142/58 (86) Pulse Ox 100 100 100 O2 Delivery Ventilator Ventilator Mechanical Ventilator Ventilator 12/03/18 12/03/18 12/03/18 12/03/18 05:00 05:15 06:00 07:00 Temp 97.2 97.2 Pulse 97 112 70 Resp 12 12 12 B/P (MAP) 119/55 (76) 147/64 (91) 176/65 (102) Pulse Ox 100 95 100 100 O2 Delivery Ventilator Ventilator Ventilator Ventilator 12/03/18 12/03/18 12/03/18 12/03/18 08:00 08:00 08:16 09:00 Pulse 74 112 Resp 11 12 B/P (MAP) 193/72 (112) 214/78 (123) Pulse Ox 100 99 100 O2 Delivery Mechanical Ventilator Ventilator Ventilator Ventilator 12/03/18 12/03/18 12/03/18 12/03/18 10:00 10:05 11:00 12:00 Temp 98.6 98.6 Pulse 74 72 80 Resp 12 13 B/P (MAP) 191/57 (101) 194/77 183/74 (110) Pulse Ox 100 100 O2 Delivery Ventilator Ventilator Mechanical Ventilator 12/03/18 12/03/18 12/03/18 12/03/18 12:00 12:08 12:10 12:11 Pulse 82 85 85 Resp 11 B/P (MAP) 175/62 (99) 208/76 208/76 Pulse Ox 96 97 O2 Delivery Ventilator Ventilator 12/03/18 12:11 Pulse 85 B/P (MAP) 208/76 Intake and Output 12/02/18 12/02/18 12/03/18 15:00 23:00 07:00 Intake Total 378 ml 56 ml 52.7 ml Output Total 960 ml 695 ml 410 ml Balance -582 ml -639 ml -357.3 ml Nutrition Consultation Dietary Evaluation: Recommendations by RD: Add supplement feedings Comments: NPO day 2, REC TF for total nutrition with protein module due to skin breakdown Expected Outcomes/Goals: to meet > 75% est nutr needs via TF -nutrition support improved wound status Interpretation of weight loss: >10% in 6 months Malnutrition Findings: Body Fat Depletion (Non Severe: Mild Depletion Weight Status: Overweight FAB RAYA MD Dec 03, 2018 14:19
[2018-12-03 14:50] LABS: PROTHROMBIN TIME PATIENT 18.3 SEC (11.7-14.0)
[2018-12-03] MEDS: IV NORMAL SALINE 1000ML BAG 1,000 ML IV SCH (15:11)
[2018-12-03] MEDS ORDERED: AMIO200T4 PO (16:12)
[2018-12-03] MEDS ORDERED: APIX5TAB PO (16:12)
[2018-12-03] MEDS ORDERED: TRAM50TA PO (18:19)
[2018-12-03] MEDS ORDERED: ASPI81TA50 PO (18:19)
[2018-12-03] MEDS ORDERED: TAMS0.4C97 PO (18:19)
[2018-12-03] MEDS ORDERED: CYCL10TA2 PO (18:19)
[2018-12-03] MEDS: FAMOTIDINE 20 MG/2 ML VIAL IVP SCH (21:29)
[2018-12-04] VITALS (29 sets, daily range): BP systolic 117–210; BP diastolic 53–101
[2018-12-04] MEDS: PIPERACILLIN/TAZOBACTAM 3.375 GM in IV NORMAL SALINE 50ML 50 ML IV SCH ×5 (01:13→23:44)
[2018-12-04] MEDS: hydrALAZINE 20 MG/ML VIAL. IVP PRN ×3 (01:43→14:44)
--- NOTE | 2018-12-04 06:31 | PDOC ---
PULMONARY PROGRESS NOTES Subjective extubated,12/03, on 02, sob better, has cough, no pain, is on home o2 Vitals Vital Signs Date Time Temp Pulse Resp B/P (MAP) Pulse Ox O2 Delivery O2 Flow Rate FiO2 12/04/18 04:00 98.3 78 22 186/78 (114) 98 Nasal Cannula 3.0 98.3 Comments ros as mentioned as above discussed w rn other sys otherwise neg sedated on vent HEENT: Other (nc at perrl nose clear orally intubated neck no lad no thyromegaly) Lungs: Other (decrease bs) Cardiovascular: S1, S2 Abdomen: Soft, Non-tender, Other (no mass) Extremities: Other (1+edema/ stasis) Skin: Warm Labs Laboratory Tests Test 12/02/18 09:10 12/02/18 09:23 12/02/18 20:32 12/03/18 06:00 O2 Saturation 95 % (92-99) Arterial Blood pH 7.40 (7.35-7.45) Arterial Blood pCO2 at Patient Temp 53 mmHg (35-46) Arterial Blood pO2 at Patient Temp 87 mmHg (65-108) Arterial Blood HCO3 32 mmol/L (21-28) Arterial Blood Base Excess 7 mmol/L (-3-3) FiO2 40 Glucose (Fingerstick) 139 mg/dL (70-99) 134 mg/dL (70-99) White Blood Count 5.8 x10^3/uL (4.0-11.0) Red Blood Count 3.09 x10^6/uL (3.50-5.40) Hemoglobin 7.8 g/dL (12.0-15.5) Hematocrit 24.6 % (36.0-47.0) Mean Corpuscular Volume 80 fL (79-100) Mean Corpuscular Hemoglobin 25 pg (25-35) Mean Corpuscular Hemoglobin Concent 32 g/dL (31-37) Red Cell Distribution Width 21.7 % (11.5-14.5) Platelet Count 147 x10^3/uL (140-400) Neutrophils (%) (Auto) 80 % (31-73) Lymphocytes (%) (Auto) 9 % (24-48) Monocytes (%) (Auto) 9 % (0-9) Eosinophils (%) (Auto) 2 % (0-3) Basophils (%) (Auto) 1 % (0-3) Neutrophils # (Auto) 4.6 x10^3/uL (1.8-7.7) Lymphocytes # (Auto) 0.5 x10^3/uL (1.0-4.8) Monocytes # (Auto) 0.5 x10^3/uL (0.0-1.1) Eosinophils # (Auto) 0.1 x10^3/uL (0.0-0.7) Basophils # (Auto) 0.0 x10^3/uL (0.0-0.2) Sodium Level 150 mmol/L (136-145) Potassium Level 3.4 mmol/L (3.5-5.1) Chloride Level 108 mmol/L (98-107) Carbon Dioxide Level 38 mmol/L (21-32) Anion Gap 4 (6-14) Blood Urea Nitrogen 26 mg/dL (7-20) Creatinine 1.7 mg/dL (0.6-1.0) Estimated GFR (Cockcroft-Gault) 29.7 Glucose Level 111 mg/dL (70-99) Calcium Level 7.9 mg/dL (8.5-10.1) Test 12/03/18 09:55 12/03/18 12:20 12/03/18 12:27 12/03/18 14:15 O2 Saturation 98 % (92-99) 98 % (92-99) Arterial Blood pH 7.44 (7.35-7.45) 7.39 (7.35-7.45) Arterial Blood pCO2 at Patient Temp 53 mmHg (35-46) 62 mmHg (35-46) Arterial Blood pO2 at Patient Temp 117 mmHg (65-108) 106 mmHg (65-108) Arterial Blood HCO3 35 mmol/L (21-28) 37 mmol/L (21-28) Arterial Blood Base Excess 10 mmol/L (-3-3) 11 mmol/L (-3-3) FiO2 40 40 Glucose (Fingerstick) 114 mg/dL (70-99) Prothrombin Time 18.3 SEC (11.7-14.0) Prothromb Time International Ratio 1.6 (0.8-1.1) Test 12/03/18 18:27 12/03/18 21:25 Glucose (Fingerstick) 110 mg/dL (70-99) 136 mg/dL (70-99) Laboratory Tests Test 12/03/18 09:55 12/03/18 12:20 12/03/18 12:27 12/03/18 14:15 O2 Saturation 98 % (92-99) 98 % (92-99) Arterial Blood pH 7.44 (7.35-7.45) 7.39 (7.35-7.45) Arterial Blood pCO2 at Patient Temp 53 mmHg (35-46) 62 mmHg (35-46) Arterial Blood pO2 at Patient Temp 117 mmHg (65-108) 106 mmHg (65-108) Arterial Blood HCO3 35 mmol/L (21-28) 37 mmol/L (21-28) Arterial Blood Base Excess 10 mmol/L (-3-3) 11 mmol/L (-3-3) FiO2 40 40 Glucose (Fingerstick) 114 mg/dL (70-99) Prothrombin Time 18.3 SEC (11.7-14.0) Prothromb Time International Ratio 1.6 (0.8-1.1) Test 12/03/18 18:27 12/03/18 21:25 Glucose (Fingerstick) 110 mg/dL (70-99) 136 mg/dL (70-99) Medications Active Scripts Medications Dose Route/Sig Max Daily Dose Days Date Category Dose Instructions Humalog (Insulin Lispro) 100 Unit/1 Ml Insuln.pen 10 Units SQ TIDWMEALS MDD 1 14 02/02/18 Rx Lantus Solostar (Insulin Glargine,Hum.rec.anlog) 100 Unit/1 Ml Insuln.pen 30 Units SQ QHS 14 02/02/18 Rx Gabapentin (Gabapentin) 100 Mg Capsule 200 Mg PO TID MDD 1 14 02/02/18 Rx Hydrocodone-Apap 5-325 (Hydrocodone Bit/Acetaminophen) 1 Each Tablet 1 Tab PO PRN Q6HRS PRN 02/02/18 Rx Potassium Chloride 10 Meq Tablet.er 10 Meq PO DAILY 01/26/18 Reported Furosemide 40 Mg Tablet 40 Mg PO BID 01/26/18 Reported Fosamax (Alendronate Sodium) 70 Mg Tablet 1 Tab PO WEEKLY 01/26/18 Reported wednesday Vitamin D2 (Ergocalciferol (Vitamin D2)) 50,000 Unit Capsule 1 Cap PO TWICE WEEKLY 01/26/18 Reported WED AND sAT Amlodipine Besylate 10 Mg Tablet 10 Mg PO DAILY MDD 1 01/24/18 Rx Clonidine Tts-2 (Clonidine) 1 Each Patch.tdwk 1 Patch TD WEEKLY MDD 1 01/24/18 Rx Hydralazine Hcl 50 Mg Tablet 50 Mg PO TID MDD 1 01/24/18 Rx Metoprolol Succinate ( Xl ) (Metoprolol Succinate) 25 Mg Tab.er.24h 1 Tab PO DAILY 12/31/17 Reported Voltaren (Diclofenac Sodium) 100 Gm Gel..gram. 1 Gm TP QID 12/31/17 Reported Ferrous Sulfate 325 Mg Tablet 325 Mg PO DAILY 10/24/17 Reported Colestipol Hcl 1 Gm Tablet 1 Gm PO DAILY 10/24/17 Reported Oxybutynin Chloride 5 Mg Tablet 5 Mg PO TID 03/17/17 Reported Lipitor (Atorvastatin Calcium) 80 Mg Tablet 80 Mg PO HS 03/17/17 Reported Levothyroxine Sodium 150 Mcg Tablet 1 Tab PO DAILY 03/17/17 Reported Isosorbide Mononitrate Er (Isosorbide Mononitrate) 30 Mg Tab.er.24h 1 Tab PO DAILY 03/17/17 Reported Lantus (Insulin Glargine,Hum.rec.anlog) 100 Unit/1 Ml Vial 52 Unit SQ BID 05/14/15 Reported MAY INCREASE FOR BLOOD SUGARS GREATER THAN 200 FASTING Duoneb 0.5-3(2.5) Mg/3 Ml (Albuterol/Ipratropium) 3 Ml Ampul.neb 3 Ml IH QID 05/14/15 Reported Ventolin Hfa Inhaler (Albuterol Sulfate) 18 Gm Hfa.aer.ad 2 Puff INH Q4HRS PRN 05/14/15 Reported Venlafaxine Hcl Er (Venlafaxine Hcl) 150 Mg Cap.er.24h 150 Mg PO DAILY 05/14/15 Reported Novolog Flexpen (Insulin Aspart) 100 Unit/1 Ml Insuln.pen 30 Unit SQ TIDAC 05/14/15 Reported Pantoprazole Sodium (Pantoprazole Sodium) 40 Mg Tablet.dr 40 Mg PO DAILY 05/14/15 Reported Trazodone Hcl 100 Mg Tablet 200 Mg PO HS 05/14/15 Reported Comments cxr 12/04 reviewed b ll infilt atelectasis effusion CT CHEST Moderate to large bilateral pleural effusions with pulmonary interstitial infiltrates and scattered bibasilar atelectatic consolidation. Mild pulmonary vascular congestion. Circumferential wall thickening of the cecum and ascending colon. Correlate for underlying colitis including ischemic etiology. No significant surrounding stranding noted however. No abscess. Advanced atherosclerotic calcific involvement of the abdominal aorta and its branches. Stenosis of the distal abdominal aorta. Urinary bladder wall thickening which may represent neurogenic bladder or chronic cystitis. Impression . 1. Acute hypoxic respiratory failure secondary to acute congestive heart failure, sepsis. 2. Abnormal chest x-ray 3. The patient with history of atrial fibrillation, on amiodarone and Eliquis. Likely diastolic HF. She had prior thoracentesis done at recently. 4. Encephalopathy, likely related to cardiac pump failure. CT head negative. resolved 5. Hyperglycemia, continue insulin per protocol. 6. Abnormal renal function could be chronic kidney disease. 7. sepsis, gnr, co neg 8. Severe protein-calorie malnutrition. Plan . 1. 02 titration, 2. IS, speech eval 3. Diuresis 4. Insulin per protocol. 5. echocardiogram with normal EF 6. Follow Cardiology recommendation. 7. antibiotic per ID 8. Follow renal function 9. DVT and stress ulcer prophylaxis. 10. Discussed with RN and RT. We will follow along with you. BRANDON JACINTO MD Dec 04, 2018 06:31
[2018-12-04 06:42] LABS: BASO % 0 % (0-3); EOS # 0.1 x10^3/uL (0.0-0.7); EOS % 1 % (0-3); HEMATOCRIT 25.1 % (36.0-47.0); LYMPH # 0.3 x10^3/uL (1.0-4.8); LYMPH % 5 % (24-48); MEAN CORPUSCULAR HEMOGLOBIN 25 pg (25-35); MEAN CORPUSCULAR HGB CONC 32 g/dL (31-37); MEAN CORPUSCULAR VOLUME 80 fL (79-100); MONO # 0.6 x10^3/uL (0.0-1.1); MONO % 10 % (0-9); NEUT # 4.8 x10^3/uL (1.8-7.7); NEUT % 84 % (31-73); PLATELET COUNT 170 x10^3/uL (140-400); RED BLOOD COUNT 3.15 x10^6/uL (3.50-5.40); RED CELL DISTRIBUTION WIDTH 22.2 % (11.5-14.5); WHITE BLOOD COUNT 5.7 x10^3/uL (4.0-11.0)
[2018-12-04 07:07] LABS: ALBUMIN 1.9 g/dL (3.4-5.0); ALBUMIN/GLOBULIN RATIO 0.4 (1.0-1.7); CALCIUM 8.3 mg/dL (8.5-10.1); CREATININE 1.3 mg/dL (0.6-1.0); GFR 40.5; TOTAL BILIRUBIN 0.6 mg/dL (0.2-1.0); TOTAL PROTEIN 6.2 g/dL (6.4-8.2)
[2018-12-04] MEDS: INSULIN LISPRO 300 UNITS/3 ML VIAL. SQ SCH ×3 (07:37→17:00)
[2018-12-04] MEDS: AMINO AC 3%/ELECTROLYTE/GLYCER 1,000 ML IV SCH (07:49)
--- NOTE | 2018-12-04 07:50 | PDOC ---
Infectious Disease Note Subjective Subjective s/p extubation, now on 3L O2 Requesting ice chips Denies pain/SOA/up set stomach No fevers PPN ROS ROS per HPI Vital Sign Vital Signs Vital Signs Date Time Temp Pulse Resp B/P (MAP) Pulse Ox O2 Delivery O2 Flow Rate FiO2 12/04/18 06:00 82 21 174/74 (107) 97 Nasal Cannula 3.0 12/04/18 04:00 98.3 98.3 Physical Exam PHYSICAL EXAM GENERAL: Propped up in bed, awake, calm, NAD HEENT: Pupils equal, oral cavity pink, dry NECK: Supple LUNGS: clear anteriorly HEART: S1, S2 ABDOMEN: Soft, no guarding : Cadet (orange color urine) EXTREMITIES: Chronic venous insufficiency changes present. 1+ edema RLE. Sacrococcygeal wound. NEUROLOGIC: Awake, responds appropriately LIJ clean Labs Lab Laboratory Tests Test 12/03/18 09:55 12/03/18 12:20 12/03/18 12:27 12/03/18 14:15 O2 Saturation 98 % (92-99) 98 % (92-99) Arterial Blood pH 7.44 (7.35-7.45) 7.39 (7.35-7.45) Arterial Blood pCO2 at Patient Temp 53 mmHg (35-46) 62 mmHg (35-46) Arterial Blood pO2 at Patient Temp 117 mmHg (65-108) 106 mmHg (65-108) Arterial Blood HCO3 35 mmol/L (21-28) 37 mmol/L (21-28) Arterial Blood Base Excess 10 mmol/L (-3-3) 11 mmol/L (-3-3) FiO2 40 40 Glucose (Fingerstick) 114 mg/dL (70-99) Prothrombin Time 18.3 SEC (11.7-14.0) Prothromb Time International Ratio 1.6 (0.8-1.1) Test 12/03/18 18:27 12/03/18 21:25 12/04/18 06:00 Glucose (Fingerstick) 110 mg/dL (70-99) 136 mg/dL (70-99) White Blood Count 5.7 x10^3/uL (4.0-11.0) Red Blood Count 3.15 x10^6/uL (3.50-5.40) Hemoglobin 8.0 g/dL (12.0-15.5) Hematocrit 25.1 % (36.0-47.0) Mean Corpuscular Volume 80 fL (79-100) Mean Corpuscular Hemoglobin 25 pg (25-35) Mean Corpuscular Hemoglobin Concent 32 g/dL (31-37) Red Cell Distribution Width 22.2 % (11.5-14.5) Platelet Count 170 x10^3/uL (140-400) Neutrophils (%) (Auto) 84 % (31-73) Lymphocytes (%) (Auto) 5 % (24-48) Monocytes (%) (Auto) 10 % (0-9) Eosinophils (%) (Auto) 1 % (0-3) Basophils (%) (Auto) 0 % (0-3) Neutrophils # (Auto) 4.8 x10^3/uL (1.8-7.7) Lymphocytes # (Auto) 0.3 x10^3/uL (1.0-4.8) Monocytes # (Auto) 0.6 x10^3/uL (0.0-1.1) Eosinophils # (Auto) 0.1 x10^3/uL (0.0-0.7) Basophils # (Auto) 0.0 x10^3/uL (0.0-0.2) Sodium Level 150 mmol/L (136-145) Potassium Level 3.0 mmol/L (3.5-5.1) Chloride Level 107 mmol/L (98-107) Carbon Dioxide Level 36 mmol/L (21-32) Anion Gap 7 (6-14) Blood Urea Nitrogen 23 mg/dL (7-20) Creatinine 1.3 mg/dL (0.6-1.0) Estimated GFR (Cockcroft-Gault) 40.5 BUN/Creatinine Ratio 18 (6-20) Glucose Level 139 mg/dL (70-99) Calcium Level 8.3 mg/dL (8.5-10.1) Total Bilirubin 0.6 mg/dL (0.2-1.0) Aspartate Amino Transf (AST/SGOT) 187 U/L (15-37) Alanine Aminotransferase (ALT/SGPT) 767 U/L (14-59) Alkaline Phosphatase 115 U/L (46-116) Total Protein 6.2 g/dL (6.4-8.2) Albumin 1.9 g/dL (3.4-5.0) Albumin/Globulin Ratio 0.4 (1.0-1.7) Micro 11/30. BLOOD CULTURE Final AMENDED REPORT: 4 OF 4 BOTTLES ARE NOW POSITIVE FOR GRAM POSITIVE COCCI IN CLUSTERS. (1 IN 4 FOR GRAM NEGATIVE RODS). BLD CULT RESULT 1 Preliminary Coagulase negative Staphylococcus species. 11/30. URINE CULTURE RES 1 Final Streptococcus species Enterococcus faecium MICS are expressed in micrograms per mL Antibiotic RSLT#1 Ciprofloxacin R>=8 Levofloxacin R>=8 Nitrofurantoin I =64 Penicillin R>=64 Tetracycline R>=16 Vancomycin S<=0.5 Objective Assessment Sepsis with CoNs and GNR bacteremia, 11/30 Enterococcus (vanc-S only) UTI, 11/30 Lactic acidosis Suspected aspiration pneumonia. Congestive heart failure. Troponin leak. Abnormal urinalysis/urinary tract infection. Hypoxic respiratory failure. Diabetes. Sacrococcygeal decubitus. Ischemic colitis vs ulcerated tumor h/o A-fib Plan Plan of Care cont Dapto and Zosyn Monitor abx toxicities/side effects f/u cultures surgery consult for possible ischemic colitis vs tumor, daughter does not remember her last colonoscopy D/w nursing Critically ill Patient seen and examined. Chart reviewed in detail. Case discussed with SPANISH PROFESSOR. Agree with above plan. GUY ROLDAN APRN Dec 04, 2018 07:50 ANGELY RAMIREZ MD Dec 04, 2018 20:27
--- NOTE | 2018-12-04 07:58 | RAD ---
EXAM: Chest, single view. HISTORY: Respiratory distress. COMPARISON: 12/03/2018 FINDINGS: A frontal view of the chest is obtained. There has been no significant change in lower lobe predominant interstitial infiltrate with small pleural effusions. There is a stable prominent cardiac silhouette. There has been interval removal of an endotracheal tube and nasogastric tube. There is a left internal jugular catheter with the tip in the superior vena cava. IMPRESSION: No significant change in diffuse lower lobe predominant infiltrate with small pleural effusions. Electronically signed by: Emily Jolley MD (12/04/2018 7:55 AM) [facility]
[2018-12-04] MEDS: IPRATRPIUM/ALBUTEROL 0.5/2.5MG 3 ML NEBU. NEB SCH (08:26)
[2018-12-04] MEDS: SENNOSIDES/DOCUSATE 8.6/50MG TABLET. PO SCH ×2 (08:28→20:45)
[2018-12-04] MEDS: INSULIN GLARGINE SYRINGE. SQ SCH ×2 (08:48→21:42)
[2018-12-04] MEDS: amLODIPine BESYLATE 10 MG TABLET PO SCH (09:00)
[2018-12-04] MEDS: METOPROLOL SUCC 24HR ER 25 MG TAB.ER.24H. PO SCH (09:00)
[2018-12-04] MEDS ORDERED: NITROGLYCERIN PREMIX 250 ML IV PRN (09:30)
[2018-12-04] MEDS: DAPTOmycin (GENERIC) IVPB 320 MG in IV NORMAL SALINE 50ML 50 ML IV SCH (10:32)
[2018-12-04] MEDS: POTASSIUM CHL 20MEQ PREMIX 50 ML IV SCH ×2 (10:53→11:53)
--- NOTE | 2018-12-04 10:59 | PDOC ---
PROGRESS NOTES Subjective Subjective SEEN IN FOLLOW UP OF ARF Objective Objective Vital Signs Date Time Temp Pulse Resp B/P (MAP) Pulse Ox O2 Delivery O2 Flow Rate FiO2 12/04/18 09:00 82 31 181/81 (114) 96 Nasal Cannula 3.0 12/04/18 08:00 97.7 97.7 Intake and Output 12/04/18 07:00 Intake Total 1144 ml Output Total 1080 ml Balance 64 ml IV Total 1144 ml Output Urine Total 1080 ml Physical Exam Abdomen: Normal bowel sounds, Soft, No tenderness, No hepatosplenomegaly, No masses Heart: Regular rate, Normal S1, Normal S2, No murmurs, Gallops Extremities: No clubbing, No cyanosis, No edema, Normal pulses, No tenderness/swelling General: Alert Lungs: Clear to auscultation, Normal air movement Diagnosis RENAL FAILURE: Chronic (CKD stage III) Assessment Assessment Problems Medical Problems: (1) CHF (congestive heart failure) Status: Acute (2) Renal failure Status: Acute (3) Respiratory failure Status: Acute (4) Septic shock Status: Acute (5) UTI (urinary tract infection) Status: Acute Plan Plan of Care RENAL FUNCTION IS IMPROVING. BASELINE CREAT 1.5. SHE IS HYPERNATREMIC AND WILL ADD D5W Comment Review of Relevant I have reviewed the following items brooke (where applicable) has been applied. Labs Laboratory Tests Test 12/02/18 20:32 12/03/18 06:00 12/03/18 09:55 12/03/18 12:20 Glucose (Fingerstick) 134 mg/dL (70-99) White Blood Count 5.8 x10^3/uL (4.0-11.0) Red Blood Count 3.09 x10^6/uL (3.50-5.40) Hemoglobin 7.8 g/dL (12.0-15.5) Hematocrit 24.6 % (36.0-47.0) Mean Corpuscular Volume 80 fL (79-100) Mean Corpuscular Hemoglobin 25 pg (25-35) Mean Corpuscular Hemoglobin Concent 32 g/dL (31-37) Red Cell Distribution Width 21.7 % (11.5-14.5) Platelet Count 147 x10^3/uL (140-400) Neutrophils (%) (Auto) 80 % (31-73) Lymphocytes (%) (Auto) 9 % (24-48) Monocytes (%) (Auto) 9 % (0-9) Eosinophils (%) (Auto) 2 % (0-3) Basophils (%) (Auto) 1 % (0-3) Neutrophils # (Auto) 4.6 x10^3/uL (1.8-7.7) Lymphocytes # (Auto) 0.5 x10^3/uL (1.0-4.8) Monocytes # (Auto) 0.5 x10^3/uL (0.0-1.1) Eosinophils # (Auto) 0.1 x10^3/uL (0.0-0.7) Basophils # (Auto) 0.0 x10^3/uL (0.0-0.2) Sodium Level 150 mmol/L (136-145) Potassium Level 3.4 mmol/L (3.5-5.1) Chloride Level 108 mmol/L (98-107) Carbon Dioxide Level 38 mmol/L (21-32) Anion Gap 4 (6-14) Blood Urea Nitrogen 26 mg/dL (7-20) Creatinine 1.7 mg/dL (0.6-1.0) Estimated GFR (Cockcroft-Gault) 29.7 Glucose Level 111 mg/dL (70-99) Calcium Level 7.9 mg/dL (8.5-10.1) O2 Saturation 98 % (92-99) 98 % (92-99) Arterial Blood pH 7.44 (7.35-7.45) 7.39 (7.35-7.45) Arterial Blood pCO2 at Patient Temp 53 mmHg (35-46) 62 mmHg (35-46) Arterial Blood pO2 at Patient Temp 117 mmHg (65-108) 106 mmHg (65-108) Arterial Blood HCO3 35 mmol/L (21-28) 37 mmol/L (21-28) Arterial Blood Base Excess 10 mmol/L (-3-3) 11 mmol/L (-3-3) FiO2 40 40 Test 12/03/18 12:27 12/03/18 14:15 12/03/18 18:27 12/03/18 21:25 Glucose (Fingerstick) 114 mg/dL (70-99) 110 mg/dL (70-99) 136 mg/dL (70-99) Prothrombin Time 18.3 SEC (11.7-14.0) Prothromb Time International Ratio 1.6 (0.8-1.1) Test 12/04/18 06:00 White Blood Count 5.7 x10^3/uL (4.0-11.0) Red Blood Count 3.15 x10^6/uL (3.50-5.40) Hemoglobin 8.0 g/dL (12.0-15.5) Hematocrit 25.1 % (36.0-47.0) Mean Corpuscular Volume 80 fL (79-100) Mean Corpuscular Hemoglobin 25 pg (25-35) Mean Corpuscular Hemoglobin Concent 32 g/dL (31-37) Red Cell Distribution Width 22.2 % (11.5-14.5) Platelet Count 170 x10^3/uL (140-400) Neutrophils (%) (Auto) 84 % (31-73) Lymphocytes (%) (Auto) 5 % (24-48) Monocytes (%) (Auto) 10 % (0-9) Eosinophils (%) (Auto) 1 % (0-3) Basophils (%) (Auto) 0 % (0-3) Neutrophils # (Auto) 4.8 x10^3/uL (1.8-7.7) Lymphocytes # (Auto) 0.3 x10^3/uL (1.0-4.8) Monocytes # (Auto) 0.6 x10^3/uL (0.0-1.1) Eosinophils # (Auto) 0.1 x10^3/uL (0.0-0.7) Basophils # (Auto) 0.0 x10^3/uL (0.0-0.2) Sodium Level 150 mmol/L (136-145) Potassium Level 3.0 mmol/L (3.5-5.1) Chloride Level 107 mmol/L (98-107) Carbon Dioxide Level 36 mmol/L (21-32) Anion Gap 7 (6-14) Blood Urea Nitrogen 23 mg/dL (7-20) Creatinine 1.3 mg/dL (0.6-1.0) Estimated GFR (Cockcroft-Gault) 40.5 BUN/Creatinine Ratio 18 (6-20) Glucose Level 139 mg/dL (70-99) Calcium Level 8.3 mg/dL (8.5-10.1) Total Bilirubin 0.6 mg/dL (0.2-1.0) Aspartate Amino Transf (AST/SGOT) 187 U/L (15-37) Alanine Aminotransferase (ALT/SGPT) 767 U/L (14-59) Alkaline Phosphatase 115 U/L (46-116) Total Protein 6.2 g/dL (6.4-8.2) Albumin 1.9 g/dL (3.4-5.0) Albumin/Globulin Ratio 0.4 (1.0-1.7) Laboratory Tests Test 12/03/18 12:20 12/03/18 12:27 12/03/18 14:15 12/03/18 18:27 O2 Saturation 98 % (92-99) Arterial Blood pH 7.39 (7.35-7.45) Arterial Blood pCO2 at Patient Temp 62 mmHg (35-46) Arterial Blood pO2 at Patient Temp 106 mmHg (65-108) Arterial Blood HCO3 37 mmol/L (21-28) Arterial Blood Base Excess 11 mmol/L (-3-3) FiO2 40 Glucose (Fingerstick) 114 mg/dL (70-99) 110 mg/dL (70-99) Prothrombin Time 18.3 SEC (11.7-14.0) Prothromb Time International Ratio 1.6 (0.8-1.1) Test 12/03/18 21:25 12/04/18 06:00 Glucose (Fingerstick) 136 mg/dL (70-99) White Blood Count 5.7 x10^3/uL (4.0-11.0) Red Blood Count 3.15 x10^6/uL (3.50-5.40) Hemoglobin 8.0 g/dL (12.0-15.5) Hematocrit 25.1 % (36.0-47.0) Mean Corpuscular Volume 80 fL (79-100) Mean Corpuscular Hemoglobin 25 pg (25-35) Mean Corpuscular Hemoglobin Concent 32 g/dL (31-37) Red Cell Distribution Width 22.2 % (11.5-14.5) Platelet Count 170 x10^3/uL (140-400) Neutrophils (%) (Auto) 84 % (31-73) Lymphocytes (%) (Auto) 5 % (24-48) Monocytes (%) (Auto) 10 % (0-9) Eosinophils (%) (Auto) 1 % (0-3) Basophils (%) (Auto) 0 % (0-3) Neutrophils # (Auto) 4.8 x10^3/uL (1.8-7.7) Lymphocytes # (Auto) 0.3 x10^3/uL (1.0-4.8) Monocytes # (Auto) 0.6 x10^3/uL (0.0-1.1) Eosinophils # (Auto) 0.1 x10^3/uL (0.0-0.7) Basophils # (Auto) 0.0 x10^3/uL (0.0-0.2) Sodium Level 150 mmol/L (136-145) Potassium Level 3.0 mmol/L (3.5-5.1) Chloride Level 107 mmol/L (98-107) Carbon Dioxide Level 36 mmol/L (21-32) Anion Gap 7 (6-14) Blood Urea Nitrogen 23 mg/dL (7-20) Creatinine 1.3 mg/dL (0.6-1.0) Estimated GFR (Cockcroft-Gault) 40.5 BUN/Creatinine Ratio 18 (6-20) Glucose Level 139 mg/dL (70-99) Calcium Level 8.3 mg/dL (8.5-10.1) Total Bilirubin 0.6 mg/dL (0.2-1.0) Aspartate Amino Transf (AST/SGOT) 187 U/L (15-37) Alanine Aminotransferase (ALT/SGPT) 767 U/L (14-59) Alkaline Phosphatase 115 U/L (46-116) Total Protein 6.2 g/dL (6.4-8.2) Albumin 1.9 g/dL (3.4-5.0) Albumin/Globulin Ratio 0.4 (1.0-1.7) Microbiology 11/30/18 Urine Culture - Final, Complete 11/30/18 Urine Culture Result 1 (DEEPTI) - Final, Complete 11/30/18 Antimicrobic Susceptibility - Final, Complete 11/30/18 Blood Culture - Final, Complete Medications Current Medications Sodium Chloride 1,000 ml @ 100 mls/hr Q10H IV Last administered on 11/30/18at 14:02; Start 11/30/18 at 11:10; Stop 11/30/18 at 21:09; Status DC Etomidate (Amidate) 20 mg STK-MED ONCE IV ; Start 11/30/18 at 11:28; Stop 11/30/18 at 11:29; Status DC Succinylcholine Chloride (Anectine) 200 mg STK-MED ONCE .ROUTE ; Start 11/30/18 at 11:28; Stop 11/30/18 at 11:29; Status DC Midazolam HCl (Versed) 5 mg STK-MED ONCE .ROUTE ; Start 11/30/18 at 11:31; Stop 11/30/18 at 11:32; Status DC Midazolam HCl (Versed) 2 mg 1X ONCE NS ; Start 11/30/18 at 11:45; Stop 11/30/18 at 11:46; Status DC Midazolam HCl 100 ml @ 0 mls/hr 1X ONCE IV ; Start 11/30/18 at 11:45; Stop 11/30/18 at 11:46; Status UNV Midazolam HCl 100 ml @ 0 mls/hr 1X ONCE IV Last administered on 11/30/18at 11:56; Start 11/30/18 at 11:45; Stop 11/30/18 at 11:46; Status DC Midazolam HCl (Versed) 2 mg 1X ONCE IV Last administered on 11/30/18at 11:51; Start 11/30/18 at 11:45; Stop 11/30/18 at 11:46; Status DC Piperacillin Sod/ Tazobactam Sod 3.375 gm/Sodium Chloride 50 ml @ 100 mls/hr 1X ONCE IV Last administered on 11/30/18at 12:14; Start 11/30/18 at 12:00; Stop 11/30/18 at 12:29; Status DC Vancomycin HCl 250 ml @ 250 mls/hr 1X ONCE IV Last administered on 11/30/18at 12:01; Start 11/30/18 at 11:45; Stop 11/30/18 at 12:44; Status DC Sodium Chloride 1,000 ml @ 1,000 mls/hr 1X ONCE IV Last administered on 11/30/18at 11:50; Start 11/30/18 at 11:45; Stop 11/30/18 at 12:44; Status DC Sodium Chloride 1,000 ml @ 1,000 mls/hr 1X ONCE IV Last administered on 11/30/18at 12:14; Start 11/30/18 at 12:00; Stop 11/30/18 at 12:59; Status DC Insulin Human Regular 150 ml @ 0 mls/hr 1X ONCE IV Last administered on 11/30/18at 13:41; Start 11/30/18 at 12:30; Stop 11/30/18 at 12:33; Status DC Sodium Chloride 1,000 ml @ 1,000 mls/hr 1X ONCE IV ; Start 11/30/18 at 13:15; Stop 11/30/18 at 14:14; Status DC Norepinephrine Bitartrate 250 ml @ 14.884 mls/ hr 1X ONCE IV Last administered on 11/30/18at 13:44; Start 11/30/18 at 13:15; Stop 12/01/18 at 06:02; Status DC Fentanyl Citrate 30 ml @ 0 mls/hr CONT PRN PRN IV PER PROTOCOL Last admin istered on 12/02/18at 08:53; Start 11/30/18 at 15:15 Naloxone HCl (Narcan) 0.4 mg PRN Q2MIN PRN IV SEE INSTRUCTIONS; Start 11/30/18 at 15:15 Sodium Chloride 1,000 ml @ 25 mls/hr Q24H IV Last administered on 11/30/18at 15:11; Start 11/30/18 at 15:11 Heparin Sodium (Porcine) (Heparin Sodium) 5,000 unit Q8HRS SQ ; Start 11/30/18 at 22:00; Status UNV Sodium Chloride (Normal Saline Flush) 3 ml QSHIFT PRN IV AFTER MEDS AND BLOOD DRAWS; Start 11/30/18 at 16:00 Senna/Docusate Sodium (Senna Plus) 1 tab BID PO Last administered on 12/02/18at 20:39; Start 11/30/18 at 21:00 Furosemide (Lasix) 20 mg 1X ONCE IVP Last administered on 11/30/18at 16:06; Start 11/30/18 at 16:00; Stop 11/30/18 at 16:03; Status DC Insulin Human Regular 150 unit/ Sodium Chloride 151.5 ml @ 0 mls/hr CONT PRN IV hyperglycemia; Start 11/30/18 at 16:00 Dextrose (Dextrose 50%-Water Syringe) 12.5 gm PRN Q15MIN PRN IV LOW BLOOD SUGAR; Start 11/30/18 at 16:00 Dextrose 250 ml PRN Q15MIN PRN IV LOW BLOOD SUGAR; Start 11/30/18 at 16:00 Magnesium Sulfate 100 ml @ 25 mls/hr 1X ONCE IV Last administered on 11/30/18at 16:38; Start 11/30/18 at 16:15; Stop 11/30/18 at 20:14; Status DC Potassium Chloride/Water 50 ml @ 50 mls/hr Q1H IV Last administered on 11/30/18at 17:52; Start 11/30/18 at 17:00; Stop 11/30/18 at 18:59; Status DC Aspirin (Aspirin Rectal Supp) 300 mg 1X ONCE OR Last administered on 11/30/18at 16:40; Start 11/30/18 at 16:15; Stop 11/30/18 at 16:20; Status DC Piperacillin Sod/ Tazobactam Sod 3.375 gm/Sodium Chloride 50 ml @ 100 mls/hr Q6HRS IV Last administered on 12/04/18at 05:53; Start 11/30/18 at 18:00 Midazolam HCl 100 ml @ 5 mls/hr CONT PRN IV SEE I/O RECORD Last administered on 12/01/18at 00:19; Start 11/30/18 at 18:15 Insulin Glargine (Lantus Syringe) 20 unit Q12HR SQ Last administered on 12/03/18at 21:29; Start 11/30/18 at 21:00 Furosemide (Lasix) 40 mg 1X ONCE IVP Last administered on 11/30/18at 21:55; Start 11/30/18 at 22:00; Stop 11/30/18 at 22:01; Status DC Daptomycin 320 mg/ Sodium Chloride 50 ml @ 100 mls/hr Q24H IV Last administered on 12/04/18at 10:32; Start 12/01/18 at 10:00 Potassium Phosphate 10 mmol/ Dextrose 103.3333 ml @ 51.667 m... Q2H IV Last administered on 12/01/18at 15:15; Start 12/01/18 at 11:30; Stop 12/01/18 at 17:29; Status DC Albumin Human 500 ml @ 125 mls/hr 1X ONCE IV Last administered on 12/01/18at 10:57; Start 12/01/18 at 11:00; Stop 12/01/18 at 14:59; Status DC Albumin Human 500 ml @ As Directed STK-MED ONCE IV ; Start 12/01/18 at 10:50; Stop 12/01/18 at 10:50; Status DC Sodium Phosphate 20 mmol/Dextrose 256.6667 ml @ 64.167 m... 1X ONCE IV ; Start 12/01/18 at 11:45; Stop 12/01/18 at 15:44; Status UNV Famotidine (Pepcid Vial) 20 mg QHS IVP Last administered on 12/03/18at 21:29; Start 12/01/18 at 21:00 Norepinephrine Bitartrate 250 ml @ 14.836 mls/ hr CONT PRN IV SEE I/O RECORD Last administered on 12/02/18at 08:37; Start 12/02/18 at 08:15 Potassium Chloride/Water 50 ml @ 50 mls/hr Q1H IV Last administered on 12/02/18at 09:42; Start 12/02/18 at 08:30; Stop 12/02/18 at 10:29; Status DC Magnesium Sulfate 50 ml @ 25 mls/hr 1X ONCE IV Last administered on 12/02/18at 08:38; Start 12/02/18 at 08:15; Stop 12/02/18 at 10:14; Status DC Amiodarone HCl 150 mg/Dextrose 103 ml @ 618 mls/hr 1X ONCE IV Last administered on 12/02/18at 10:23; Start 12/02/18 at 09:45; Stop 12/02/18 at 09:54; Status DC Digoxin (Lanoxin) 500 mcg 1X ONCE IV Last administered on 12/02/18at 12:21; St art 12/02/18 at 12:00; Stop 12/02/18 at 12:01; Status DC Albuterol/ Ipratropium (Duoneb) 3 ml RTQID NEB Last administered on 12/04/18at 08:26; Start 12/02/18 at 20:00 Insulin Human Lispro (HumaLOG) 0-9 UNITS TIDWMEALS SQ ; Start 12/03/18 at 08:00 Dextrose (Dextrose 50%-Water Syringe) 12.5 gm PRN Q15MIN PRN IV SEE COMMENTS; Start 12/02/18 at 18:30; Status UNV Acetaminophen (Tylenol) 650 mg PRN Q6HRS PRN PEG MILD PAIN / TEMP; Start 12/02/18 at 18:30 Ondansetron HCl (Zofran) 4 mg PRN Q6HRS PRN IVP NAUSEA/VOMITING; Start 12/02/18 at 18:30 Propofol 100 ml @ 1.187 mls/ hr CONT PRN IV SEE I/O RECORD Last administered on 12/02/18at 19:38; Start 12/02/18 at 19:30 Oxycodone/ Acetaminophen (Percocet 5/325) 1 tab PRN Q4HRS PRN PO SEVERE PAIN 7- 10; Start 12/03/18 at 02:30; Stop 12/03/18 at 03:10; Status DC Diphenhydramine HCl (Benadryl) 25 mg PRN Q6HRS PRN IVP ITCHING; Start 12/03/18 at 02:30; Stop 12/03/18 at 03:10; Status DC Hydralazine HCl (Apresoline Inj) 10 mg PRN Q4HRS PRN IVP ELEVATED BP, SEE COMMENTS Last administered on 12/04/18at 08:47; Start 12/03/18 at 10:00 Hydralazine HCl (Apresoline Inj) 20 mg STK-MED ONCE .ROUTE ; Start 12/03/18 at 10:01; Stop 12/03/18 at 10:02; Status DC Amino Acids/ Glycerin/ Electrolytes 1,000 ml @ 50 mls/hr Q20H IV Last admi nistered on 12/04/18at 07:49; Start 12/03/18 at 10:30 Amlodipine Besylate (Norvasc) 10 mg DAILY PO Last administered on 12/03/18at 12:11; Start 12/03/18 at 12:30 Hydralazine HCl (Apresoline) 50 mg TID PO ; Start 12/03/18 at 14:00 Isosorbide Mononitrate (Imdur) 30 mg DAILY PO Last administered on 12/03/18at 12:11; Start 12/03/18 at 12:30; Stop 12/04/18 at 09:29; Status DC Metoprolol Succinate (Toprol Xl) 25 mg DAILY PO Last administered on 12/03/18at 12:10; Start 12/03/18 at 12:30 Nitroglycerin/ Dextrose 250 ml @ 1.5 mls/hr CONT PRN IV SEE I/O RECORD; Start 12/04/18 at 09:30 Potassium Chloride/Water 50 ml @ 50 mls/hr Q1H IV Last administered on 12/04/18at 10:53; Start 12/04/18 at 11:00; Stop 12/04/18 at 12:59 Active Scripts Active Lantus Solostar (Insulin Glargine,Hum.rec.anlog) 100 Unit/1 Ml Insuln.pen 30 Units SQ QHS 14 Days Gabapentin (Gabapentin) 100 Mg Capsule 200 Mg PO TID MDD 1 14 Days Hydrocodone-Apap 5-325 (Hydrocodone Bit/Acetaminophen) 1 Each Tablet 1 Tab P O PRN Q6HRS PRN Amlodipine Besylate 10 Mg Tablet 10 Mg PO DAILY MDD 1 Reported Tramadol Hcl 50 Mg Tablet 50 Mg PO Q6HRS PRN Cyclobenzaprine Hcl 10 Mg Tablet 10 Mg PO DAILY Flomax (Tamsulosin Hcl) 0.4 Mg Cap.er.24h 0.4 Mg PO DAILY Aspir-Low (Aspirin) 81 Mg Tablet.dr 81 Mg PO DAILY Amiodarone Hcl 200 Mg Tablet 200 Mg PO DAILY Eliquis (Apixaban) 5 Mg Tablet 5 Mg PO DAILY Furosemide 40 Mg Tablet 20 Mg PO DAILY Fosamax (Alendronate Sodium) 70 Mg Tablet 1 Tab PO WEEKLY wednesday Vitamin D2 (Ergocalciferol (Vitamin D2)) 50,000 Unit Capsule 1 Cap PO TWICE WEEKLY WED AND wed Metoprolol Succinate ( Xl ) (Metoprolol Succinate) 25 Mg Tab.er.24h 50 Mg PO DAILY Voltaren (Diclofenac Sodium) 100 Gm Gel..gram. 1 Gm TP QID Ferrous Sulfate 325 Mg Tablet 325 Mg PO DAILY Colestipol Hcl 1 Gm Tablet 1 Gm PO BID Lipitor (Atorvastatin Calcium) 80 Mg Tablet 80 Mg PO HS Levothyroxine Sodium 150 Mcg Tablet 1 Tab PO DAILY Duoneb 0.5-3(2.5) Mg/3 Ml (Albuterol/Ipratropium) 3 Ml Ampul.neb 3 Ml IH QID Ventolin Hfa Inhaler (Albuterol Sulfate) 18 Gm Hfa.aer.ad 2 Puff INH Q4HRS PRN Venlafaxine Hcl Er (Venlafaxine Hcl) 150 Mg Cap.er.24h 150 Mg PO DAILY Novolog Flexpen (Insulin Aspart) 100 Unit/1 Ml Insuln.pen 18 Unit SQ TIDAC Pantoprazole Sodium (Pantoprazole Sodium) 40 Mg Tablet.dr 40 Mg PO DAILY Trazodone Hcl 100 Mg Tablet 200 Mg PO HS Vitals/I & O Vital Sign - Last 24 Hours 12/03/18 12/03/18 12/03/18 12/03/18 11:00 12:00 12:00 12:08 Temp 98.6 98.6 Pulse 80 82 Resp 13 11 B/P (MAP) 183/74 (110) 175/62 (99) Pulse Ox 100 96 97 O2 Delivery Ventilator Mechanical Ventilator Ventilator Ventilator 12/03/18 12/03/18 12/03/18 12/03/18 12:10 12:11 12:11 13:00 Pulse 85 85 85 78 Resp 22 B/P (MAP) 208/76 208/76 208/76 158/81 (106) Pulse Ox 97 O2 Delivery Nasal Cannula O2 Flow Rate 3.0 12/03/18 12/03/18 12/03/18 12/03/18 14:00 15:00 16:00 16:00 Temp 98.1 98.1 Pulse 76 80 77 Resp 22 25 20 B/P (MAP) 157/52 (87) 143/51 (81) 171/76 (107) Pulse Ox 100 91 98 O2 Delivery Nasal Cannula Nasal Cannula Nasal Cannula Nasal Cannula O2 Flow Rate 3.0 3.0 3.0 3.0 12/03/18 12/03/18 12/03/18 12/03/18 16:17 17:00 18:00 18:23 Pulse 76 76 75 Resp 19 19 B/P (MAP) 178/72 (107) 184/68 (106) 184/68 Pulse Ox 97 97 97 O2 Delivery Nasal Cannula Nasal Cannula Nasal Cannula O2 Flow Rate 3.0 3.0 3.0 12/03/18 12/03/18 12/03/18 12/03/18 19:00 19:56 20:00 20:00 Temp 97.8 97.8 Pulse 84 82 Resp 17 17 B/P (MAP) 134/62 (86) 183/80 (114) Pulse Ox 98 97 100 O2 Delivery Nasal Cannula Nasal Cannula Nasal Cannula Nasal Cannula O2 Flow Rate 3.0 3.0 3.0 3.0 12/03/18 12/03/18 12/03/18 12/03/18 21:00 21:30 22:00 23:00 Pulse 84 85 82 Resp 16 16 16 B/P (MAP) 165/71 (102) 185/80 (115) 182/50 (94) Pulse Ox 100 98 100 100 O2 Delivery Nasal Cannula BiPAP/CPAP BiPAP/CPAP BiPAP/CPAP O2 Flow Rate 3.0 12/04/18 12/04/18 12/04/18 12/04/18 00:00 00:00 01:00 01:43 Temp 98.0 98.0 Pulse 82 78 81 Resp 16 16 B/P (MAP) 185/68 (107) 187/81 (116) 200/79 Pulse Ox 100 100 O2 Delivery Nasal Cannula Nasal Cannula Nasal Cannula O2 Flow Rate 3.0 3.0 3.0 12/04/18 12/04/18 12/04/18 12/04/18 02:00 03:00 04:00 04:00 Temp 98.3 98.3 Pulse 80 80 78 Resp 16 16 22 B/P (MAP) 188/70 (109) 164/80 (108) 186/78 (114) Pulse Ox 100 100 98 O2 Delivery Nasal Cannula Nasal Cannula Nasal Cannula Nasal Cannula O2 Flow Rate 3.0 3.0 3.0 3.0 12/04/18 12/04/18 12/04/18 12/04/18 05:00 06:00 07:00 08:00 Pulse 82 82 84 Resp 26 21 24 B/P (MAP) 161/54 (89) 174/74 (107) 176/61 (99) Pulse Ox 98 97 95 O2 Delivery Nasal Cannula Nasal Cannula Nasal Cannula Nasal Cannula O2 Flow Rate 3.0 3.0 3.0 3.0 12/04/18 12/04/18 12/04/18 12/04/18 08:00 08:27 08:30 08:47 Temp 97.7 97.7 Pulse 81 79 83 Resp 24 20 B/P (MAP) 191/90 (123) 210/101 (137) 210/101 Pulse Ox 100 98 96 O2 Delivery Nasal Cannula Nasal Cannula Nasal Cannula O2 Flow Rate 3.0 3.0 3.0 12/04/18 09:00 Pulse 82 Resp 31 B/P (MAP) 181/81 (114) Pulse Ox 96 O2 Delivery Nasal Cannula O2 Flow Rate 3.0 Intake and Output 12/03/18 12/03/18 12/04/18 15:00 23:00 07:00 Intake Total 150 ml 422 ml 572 ml Output Total 440 ml 355 ml 285 ml Balance -290 ml 67 ml 287 ml Nutrition Consultation Dietary Evaluation: Recommendations by RD: Add supplement feedings Comments: NPO day 2, REC TF for total nutrition with protein module due to skin breakdown Expected Outcomes/Goals: to meet > 75% est nutr needs via TF -nutrition support improved wound status Interpretation of weight loss: >10% in 6 months Malnutrition Findings: Body Fat Depletion (Non Severe: Mild Depletion Weight Status: Overweight FAB RAYA MD Dec 04, 2018 10:59
[2018-12-04] MEDS ORDERED: HYDROcodone/APAP 5/325MG 1 TAB TABLET PO PRN (11:15)
[2018-12-04] MEDS: ASPIRIN ENTERIC COATED 81 MG TABLET.DR. PO SCH (11:30)
[2018-12-04] MEDS: AMIODARONE HCL 200 MG TABLET. PO SCH (11:30)
[2018-12-04] MEDS: IV DEXTROSE 5% 1,000 ML IV SCH (11:48)
--- NOTE | 2018-12-04 12:32 | PDOC ---
[facility] PROGRESS NOTE Chief Complaint Chief Complaint Respiratory failure Renal Failure Sepsis UTI History of Present Illness History of Present Illness 12/04/18 Pt was seen and examined in the ICU sitting in chair. Extubated Pt did not pass swallow test Accompanied by family members Charts and labs reviewed Potassium was 3.0, down from 3.4 BUN was 23, down from 26 Cr was 1.3, down from 1.7 D/w RN 12/03/18 Pt was seen and examined in the ICU Pt intubated. Vent settings: (AC 12/450/40% 5 PEEP) Pt was wearing mittens Accompanied by family members Reviewed charts and labs BP was elevated at 194/77 Discussed denial of [facility] transfer. Family ok now. D/w RN 12/02/18 Pt was seen and examined in ICU Reviewed chart and labs Discussed with [facility] transfer RN Pt intubated Vent Settings (AC/12/450/40% 5.0 PEEP) I talked extensively with her daughter about her concerns . The daughter wanted to transfer the pt but we reassured her that the pt is getting the best care here in the ICU. Nephrology was in the room with us. CROW SEPULVEDA 12/01/18 Pt was seen and examined in the ICU Pt is intubated with Vent Settings: (AC/12/450/150% 5 PEEP) Echo was being performed in room during exam CROW SEPULVEDA Vitals/I&O Vitals/I&O: Vital Signs Date Time Temp Pulse Resp B/P (MAP) Pulse Ox O2 Delivery O2 Flow Rate FiO2 12/04/18 09:00 82 31 181/81 (114) 96 Nasal Cannula 3.0 12/04/18 08:00 97.7 97.7 I & O 12/03/18 12/03/18 12/04/18 15:00 23:00 07:00 Intake Total 150 ml 422 ml 572 ml Output Total 440 ml 355 ml 285 ml Balance -290 ml 67 ml 287 ml Physical Exam Physical Exam: GENERAL: Propped up in bed, awake, calm, NAD HEENT: Pupils equal, oral cavity pink, dry NECK: Supple LUNGS: clear anteriorly HEART: S1, S2 ABDOMEN: Soft, no guarding : Cadet (orange color urine) EXTREMITIES: Chronic venous insufficiency changes present. 1+ edema RLE. Sacrococcygeal wound. NEUROLOGIC: Awake, responds appropriately [facility]J clean General: Alert Heart: Regular rate, Normal S1, Normal S2, No murmurs, Gallops Lungs: Other (decrease bs) Abdomen: Normal bowel sounds, Soft, No tenderness, No hepatosplenomegaly, No masses Extremities: No clubbing, No cyanosis, No edema, Normal pulses, No tenderness/swelling Skin: No breakdown Labs Labs: Laboratory Tests Test 12/03/18 12:27 12/03/18 14:15 12/03/18 18:27 12/03/18 21:25 Glucose (Fingerstick) 114 mg/dL (70-99) 110 mg/dL (70-99) 136 mg/dL (70-99) Prothrombin Time 18.3 SEC (11.7-14.0) Prothromb Time International Ratio 1.6 (0.8-1.1) Test 12/04/18 06:00 White Blood Count 5.7 x10^3/uL (4.0-11.0) Red Blood Count 3.15 x10^6/uL (3.50-5.40) Hemoglobin 8.0 g/dL (12.0-15.5) Hematocrit 25.1 % (36.0-47.0) Mean Corpuscular Volume 80 fL (79-100) Mean Corpuscular Hemoglobin 25 pg (25-35) Mean Corpuscular Hemoglobin Concent 32 g/dL (31-37) Red Cell Distribution Width 22.2 % (11.5-14.5) Platelet Count 170 x10^3/uL (140-400) Neutrophils (%) (Auto) 84 % (31-73) Lymphocytes (%) (Auto) 5 % (24-48) Monocytes (%) (Auto) 10 % (0-9) Eosinophils (%) (Auto) 1 % (0-3) Basophils (%) (Auto) 0 % (0-3) Neutrophils # (Auto) 4.8 x10^3/uL (1.8-7.7) Lymphocytes # (Auto) 0.3 x10^3/uL (1.0-4.8) Monocytes # (Auto) 0.6 x10^3/uL (0.0-1.1) Eosinophils # (Auto) 0.1 x10^3/uL (0.0-0.7) Basophils # (Auto) 0.0 x10^3/uL (0.0-0.2) Sodium Level 150 mmol/L (136-145) Potassium Level 3.0 mmol/L (3.5-5.1) Chloride Level 107 mmol/L (98-107) Carbon Dioxide Level 36 mmol/L (21-32) Anion Gap 7 (6-14) Blood Urea Nitrogen 23 mg/dL (7-20) Creatinine 1.3 mg/dL (0.6-1.0) Estimated GFR (Cockcroft-Gault) 40.5 BUN/Creatinine Ratio 18 (6-20) Glucose Level 139 mg/dL (70-99) Calcium Level 8.3 mg/dL (8.5-10.1) Total Bilirubin 0.6 mg/dL (0.2-1.0) Aspartate Amino Transf (AST/SGOT) 187 U/L (15-37) Alanine Aminotransferase (ALT/SGPT) 767 U/L (14-59) Alkaline Phosphatase 115 U/L (46-116) Total Protein 6.2 g/dL (6.4-8.2) Albumin 1.9 g/dL (3.4-5.0) Albumin/Globulin Ratio 0.4 (1.0-1.7) Review of Systems Review of Systems: Pt co cough Pt denies fever Assessment and Plan Assessmemt and Plan Problems Medical Problems: (1) CHF (congestive heart failure) Status: Acute (2) Renal failure Status: Acute (3) Respiratory failure Status: Acute (4) Septic shock Status: Acute (5) UTI (urinary tract infection) Status: Acute Assessment CHF Respiratory failure Renal Failure Sepsis UTI Cognitive Impairment at baseline CAD s/p PCI/stent LAD/RCA: cardiac cath 03/2017 showed patent stents. Hypothyroidism Plan PPN ICU monitoring IV zosyn Replace potassium Labs Home meds if tolerated Await input from cards, nephro, pulm, ID, neuro Full code Prognosis guarded Appreciate subspecialist input Total time 33 min Comment Review of Relevant I have reviewed the following items brooke (where applicable) has been applied. Medications: Current Medications Medications (Trade) Dose Ordered Sig/Kerry Route PRN Reason Start Time Stop Time Status Last Admin Dose Admin Amlodipine Besylate (Norvasc) 10 mg DAILY PO 12/03/18 12:30 12/03/18 12:11 Isosorbide Mononitrate (Imdur) 30 mg DAILY PO 12/03/18 12:30 12/04/18 09:29 DC 12/03/18 12:11 Metoprolol Succinate (Toprol Xl) 25 mg DAILY PO 12/03/18 12:30 12/03/18 12:10 Potassium Chloride/Water 50 ml @ 50 mls/hr Q1H IV 12/04/18 11:00 12/04/18 12:59 12/04/18 11:53 Dextrose 1,000 ml @ 30 mls/hr Q24H IV 12/04/18 11:45 12/04/18 11:48 TICO EDUARDO III DO Dec 04, 2018 12:32
[2018-12-04] MEDS: ONDANSETRON PF 4 MG/2 ML VIAL. IVP PRN (12:47)
[2018-12-04] MEDS: DICLOFENAC SODIUM 1% TOPICAL GEL 100GM TUBE. TP SCH ×3 (13:02→21:32)
[2018-12-04] MEDS: IPRATRPIUM/ALBUTEROL 0.5/2.5MG 3 ML NEBU. IH SCH ×3 (13:13→20:45)
[2018-12-04] MEDS: MORPHINE SULFATE 2 MG/ML VIAL. IV PRN ×2 (13:30→21:33)
--- NOTE | 2018-12-04 13:33 | PDOC ---
PROGRESS NOTES Subjective Subjective Patient seen and examined The patient has been extubated Objective Objective Vital Signs Date Time Temp Pulse Resp B/P (MAP) Pulse Ox O2 Delivery O2 Flow Rate FiO2 12/04/18 13:30 96 Nasal Cannula 2.0 12/04/18 13:00 80 19 186/63 (104) 12/04/18 12:00 97.5 97.5 Intake and Output 12/04/18 07:00 Intake Total 1144 ml Output Total 1080 ml Balance 64 ml IV Total 1144 ml Output Urine Total 1080 ml Physical Exam Abdomen: Normal bowel sounds Heart: Regular rate General: mild distress Lungs: Other (decreased breath sounds) Assessment Assessment Problems Medical Problems: (1) CHF (congestive heart failure) Status: Acute (2) Renal failure Status: Acute (3) Respiratory failure Status: Acute (4) Septic shock Status: Acute (5) UTI (urinary tract infection) Status: Acute Acute respiratory failure. Extubated. Continues to be short of breath. Followed by pulmonary. Sepsis. Antibiotics as per the ID service. DKA. Treatment per the primary service. Non-ST elevated myocardial infarction. Multifactorial with demand ischemia. Echo with normal LV function. Probable future ischemia workup based on clinical course. History of breast cancer. Treatment as above. Atrial fibrillation. Converted to sinus. Treatment with amiodarone. History of coronary artery disease with stenting. Catheterization in March 2017 showed no significant lesions Comment Review of Relevant I have reviewed the following items brooke (where applicable) has been applied. Labs Laboratory Tests Test 12/02/18 20:32 12/03/18 06:00 12/03/18 09:55 12/03/18 12:20 Glucose (Fingerstick) 134 mg/dL (70-99) White Blood Count 5.8 x10^3/uL (4.0-11.0) Red Blood Count 3.09 x10^6/uL (3.50-5.40) Hemoglobin 7.8 g/dL (12.0-15.5) Hematocrit 24.6 % (36.0-47.0) Mean Corpuscular Volume 80 fL (79-100) Mean Corpuscular Hemoglobin 25 pg (25-35) Mean Corpuscular Hemoglobin Concent 32 g/dL (31-37) Red Cell Distribution Width 21.7 % (11.5-14.5) Platelet Count 147 x10^3/uL (140-400) Neutrophils (%) (Auto) 80 % (31-73) Lymphocytes (%) (Auto) 9 % (24-48) Monocytes (%) (Auto) 9 % (0-9) Eosinophils (%) (Auto) 2 % (0-3) Basophils (%) (Auto) 1 % (0-3) Neutrophils # (Auto) 4.6 x10^3/uL (1.8-7.7) Lymphocytes # (Auto) 0.5 x10^3/uL (1.0-4.8) Monocytes # (Auto) 0.5 x10^3/uL (0.0-1.1) Eosinophils # (Auto) 0.1 x10^3/uL (0.0-0.7) Basophils # (Auto) 0.0 x10^3/uL (0.0-0.2) Sodium Level 150 mmol/L (136-145) Potassium Level 3.4 mmol/L (3.5-5.1) Chloride Level 108 mmol/L (98-107) Carbon Dioxide Level 38 mmol/L (21-32) Anion Gap 4 (6-14) Blood Urea Nitrogen 26 mg/dL (7-20) Creatinine 1.7 mg/dL (0.6-1.0) Estimated GFR (Cockcroft-Gault) 29.7 Glucose Level 111 mg/dL (70-99) Calcium Level 7.9 mg/dL (8.5-10.1) O2 Saturation 98 % (92-99) 98 % (92-99) Arterial Blood pH 7.44 (7.35-7.45) 7.39 (7.35-7.45) Arterial Blood pCO2 at Patient Temp 53 mmHg (35-46) 62 mmHg (35-46) Arterial Blood pO2 at Patient Temp 117 mmHg (65-108) 106 mmHg (65-108) Arterial Blood HCO3 35 mmol/L (21-28) 37 mmol/L (21-28) Arterial Blood Base Excess 10 mmol/L (-3-3) 11 mmol/L (-3-3) FiO2 40 40 Test 12/03/18 12:27 12/03/18 14:15 12/03/18 18:27 12/03/18 21:25 Glucose (Fingerstick) 114 mg/dL (70-99) 110 mg/dL (70-99) 136 mg/dL (70-99) Prothrombin Time 18.3 SEC (11.7-14.0) Prothromb Time International Ratio 1.6 (0.8-1.1) Test 12/04/18 06:00 White Blood Count 5.7 x10^3/uL (4.0-11.0) Red Blood Count 3.15 x10^6/uL (3.50-5.40) Hemoglobin 8.0 g/dL (12.0-15.5) Hematocrit 25.1 % (36.0-47.0) Mean Corpuscular Volume 80 fL (79-100) Mean Corpuscular Hemoglobin 25 pg (25-35) Mean Corpuscular Hemoglobin Concent 32 g/dL (31-37) Red Cell Distribution Width 22.2 % (11.5-14.5) Platelet Count 170 x10^3/uL (140-400) Neutrophils (%) (Auto) 84 % (31-73) Lymphocytes (%) (Auto) 5 % (24-48) Monocytes (%) (Auto) 10 % (0-9) Eosinophils (%) (Auto) 1 % (0-3) Basophils (%) (Auto) 0 % (0-3) Neutrophils # (Auto) 4.8 x10^3/uL (1.8-7.7) Lymphocytes # (Auto) 0.3 x10^3/uL (1.0-4.8) Monocytes # (Auto) 0.6 x10^3/uL (0.0-1.1) Eosinophils # (Auto) 0.1 x10^3/uL (0.0-0.7) Basophils # (Auto) 0.0 x10^3/uL (0.0-0.2) Sodium Level 150 mmol/L (136-145) Potassium Level 3.0 mmol/L (3.5-5.1) Chloride Level 107 mmol/L (98-107) Carbon Dioxide Level 36 mmol/L (21-32) Anion Gap 7 (6-14) Blood Urea Nitrogen 23 mg/dL (7-20) Creatinine 1.3 mg/dL (0.6-1.0) Estimated GFR (Cockcroft-Gault) 40.5 BUN/Creatinine Ratio 18 (6-20) Glucose Level 139 mg/dL (70-99) Calcium Level 8.3 mg/dL (8.5-10.1) Total Bilirubin 0.6 mg/dL (0.2-1.0) Aspartate Amino Transf (AST/SGOT) 187 U/L (15-37) Alanine Aminotransferase (ALT/SGPT) 767 U/L (14-59) Alkaline Phosphatase 115 U/L (46-116) Total Protein 6.2 g/dL (6.4-8.2) Albumin 1.9 g/dL (3.4-5.0) Albumin/Globulin Ratio 0.4 (1.0-1.7) Laboratory Tests Test 12/03/18 14:15 12/03/18 18:27 12/03/18 21:25 12/04/18 06:00 Prothrombin Time 18.3 SEC (11.7-14.0) Prothromb Time International Ratio 1.6 (0.8-1.1) Glucose (Fingerstick) 110 mg/dL (70-99) 136 mg/dL (70-99) White Blood Count 5.7 x10^3/uL (4.0-11.0) Red Blood Count 3.15 x10^6/uL (3.50-5.40) Hemoglobin 8.0 g/dL (12.0-15.5) Hematocrit 25.1 % (36.0-47.0) Mean Corpuscular Volume 80 fL (79-100) Mean Corpuscular Hemoglobin 25 pg (25-35) Mean Corpuscular Hemoglobin Concent 32 g/dL (31-37) Red Cell Distribution Width 22.2 % (11.5-14.5) Platelet Count 170 x10^3/uL (140-400) Neutrophils (%) (Auto) 84 % (31-73) Lymphocytes (%) (Auto) 5 % (24-48) Monocytes (%) (Auto) 10 % (0-9) Eosinophils (%) (Auto) 1 % (0-3) Basophils (%) (Auto) 0 % (0-3) Neutrophils # (Auto) 4.8 x10^3/uL (1.8-7.7) Lymphocytes # (Auto) 0.3 x10^3/uL (1.0-4.8) Monocytes # (Auto) 0.6 x10^3/uL (0.0-1.1) Eosinophils # (Auto) 0.1 x10^3/uL (0.0-0.7) Basophils # (Auto) 0.0 x10^3/uL (0.0-0.2) Sodium Level 150 mmol/L (136-145) Potassium Level 3.0 mmol/L (3.5-5.1) Chloride Level 107 mmol/L (98-107) Carbon Dioxide Level 36 mmol/L (21-32) Anion Gap 7 (6-14) Blood Urea Nitrogen 23 mg/dL (7-20) Creatinine 1.3 mg/dL (0.6-1.0) Estimated GFR (Cockcroft-Gault) 40.5 BUN/Creatinine Ratio 18 (6-20) Glucose Level 139 mg/dL (70-99) Calcium Level 8.3 mg/dL (8.5-10.1) Total Bilirubin 0.6 mg/dL (0.2-1.0) Aspartate Amino Transf (AST/SGOT) 187 U/L (15-37) Alanine Aminotransferase (ALT/SGPT) 767 U/L (14-59) Alkaline Phosphatase 115 U/L (46-116) Total Protein 6.2 g/dL (6.4-8.2) Albumin 1.9 g/dL (3.4-5.0) Albumin/Globulin Ratio 0.4 (1.0-1.7) Microbiology 11/30/18 Urine Culture - Final, Complete 11/30/18 Urine Culture Result 1 (DEEPTI) - Final, Complete 11/30/18 Antimicrobic Susceptibility - Final, Complete 11/30/18 Blood Culture - Final, Complete Medications Current Medications Sodium Chloride 1,000 ml @ 100 mls/hr Q10H IV Last administered on 11/30/18at 14:02; Start 11/30/18 at 11:10; Stop 11/30/18 at 21:09; Status DC Etomidate (Amidate) 20 mg STK-MED ONCE IV ; Start 11/30/18 at 11:28; Stop 11/30/18 at 11:29; Status DC Succinylcholine Chloride (Anectine) 200 mg STK-MED ONCE .ROUTE ; Start 11/30/18 at 11:28; Stop 11/30/18 at 11:29; Status DC Midazolam HCl (Versed) 5 mg STK-MED ONCE .ROUTE ; Start 11/30/18 at 11:31; Stop 11/30/18 at 11:32; Status DC Midazolam HCl (Versed) 2 mg 1X ONCE NS ; Start 11/30/18 at 11:45; Stop 11/30/18 at 11:46; Status DC Midazolam HCl 100 ml @ 0 mls/hr 1X ONCE IV ; Start 11/30/18 at 11:45; Stop 11/30/18 at 11:46; Status UNV Midazolam HCl 100 ml @ 0 mls/hr 1X ONCE IV Last administered on 11/30/18at 11:56; Start 11/30/18 at 11:45; Stop 11/30/18 at 11:46; Status DC Midazolam HCl (Versed) 2 mg 1X ONCE IV Last administered on 11/30/18at 11:51; Start 11/30/18 at 11:45; Stop 11/30/18 at 11:46; Status DC Piperacillin Sod/ Tazobactam Sod 3.375 gm/Sodium Chloride 50 ml @ 100 mls/hr 1X ONCE IV Last administered on 11/30/18at 12:14; Start 11/30/18 at 12:00; Stop 11/30/18 at 12:29; Status DC Vancomycin HCl 250 ml @ 250 mls/hr 1X ONCE IV Last administered on 11/30/18at 12:01; Start 11/30/18 at 11:45; Stop 11/30/18 at 12:44; Status DC Sodium Chloride 1,000 ml @ 1,000 mls/hr 1X ONCE IV Last administered on 11/30/18at 11:50; Start 11/30/18 at 11:45; Stop 11/30/18 at 12:44; Status DC Sodium Chloride 1,000 ml @ 1,000 mls/hr 1X ONCE IV Last administered on 11/30/18at 12:14; Start 11/30/18 at 12:00; Stop 11/30/18 at 12:59; Status DC Insulin Human Regular 150 ml @ 0 mls/hr 1X ONCE IV Last administered on 11/30/18at 13:41; Start 11/30/18 at 12:30; Stop 11/30/18 at 12:33; Status DC Sodium Chloride 1,000 ml @ 1,000 mls/hr 1X ONCE IV ; Start 11/30/18 at 13:15; Stop 11/30/18 at 14:14; Status DC Norepinephrine Bitartrate 250 ml @ 14.884 mls/ hr 1X ONCE IV Last administered on 11/30/18at 13:44; Start 11/30/18 at 13:15; Stop 12/01/18 at 06:02; Status DC Fentanyl Citrate 30 ml @ 0 mls/hr CONT PRN PRN IV PER PROTOCOL Last administered on 12/02/18at 08:53; Start 11/30/18 at 15:15 Naloxone HCl (Narcan) 0.4 mg PRN Q2MIN PRN IV SEE INSTRUCTIONS; Start 11/30/18 at 15:15 Sodium Chloride 1,000 ml @ 25 mls/hr Q24H IV Last administered on 11/30/18at 15:11; Start 11/30/18 at 15:11 Heparin Sodium (Porcine) (Heparin Sodium) 5,000 unit Q8HRS SQ ; Start 11/30/18 at 22:00; Status UNV Sodium Chloride (Normal Saline Flush) 3 ml QSHIFT PRN IV AFTER MEDS AND BLOOD DRAWS; Start 11/30/18 at 16:00 Senna/Docusate Sodium (Senna Plus) 1 tab BID PO Last administered on 12/02/18at 20:39; Start 11/30/18 at 21:00 Furosemide (Lasix) 20 mg 1X ONCE IVP Last administered on 11/30/18at 16:06; Start 11/30/18 at 16:00; Stop 11/30/18 at 16:03; Status DC Insulin Human Regular 150 unit/ Sodium Chloride 151.5 ml @ 0 mls/hr CONT PRN IV hyperglycemia; Start 11/30/18 at 16:00 Dextrose (Dextrose 50%-Water Syringe) 12.5 gm PRN Q15MIN PRN IV LOW BLOOD SUGAR; Start 11/30/18 at 16:00 Dextrose 250 ml PRN Q15MIN PRN IV LOW BLOOD SUGAR; Start 11/30/18 at 16:00 Magnesium Sulfate 100 ml @ 25 mls/hr 1X ONCE IV Last administered on 11/30/18at 16:38; Start 11/30/18 at 16:15; Stop 11/30/18 at 20:14; Status DC Potassium Chloride/Water 50 ml @ 50 mls/hr Q1H IV Last administered on 11/30/18at 17:52; Start 11/30/18 at 17:00; Stop 11/30/18 at 18:59; Status DC Aspirin (Aspirin Rectal Supp) 300 mg 1X ONCE ND Last administered on 11/30/18at 16:40; Start 11/30/18 at 16:15; Stop 11/30/18 at 16:20; Status DC Piperacillin Sod/ Tazobactam Sod 3.375 gm/Sodium Chloride 50 ml @ 100 mls/hr Q6HRS IV Last administered on 12/04/18at 11:53; Start 11/30/18 at 18:00 Midazolam HCl 100 ml @ 5 mls/hr CONT PRN IV SEE I/O RECORD Last administered on 12/01/18at 00:19; Start 11/30/18 at 18:15 Insulin Glargine (Lantus Syringe) 20 unit Q12HR SQ Last administered on 12/03/18at 21:29; Start 11/30/18 at 21:00 Furosemide (Lasix) 40 mg 1X ONCE IVP Last administered on 11/30/18at 21:55; Start 11/30/18 at 22:00; Stop 11/30/18 at 22:01; Status DC Daptomycin 320 mg/ Sodium Chloride 50 ml @ 100 mls/hr Q24H IV Last administered on 12/04/18at 10:32; Start 12/01/18 at 10:00 Potassium Phosphate 10 mmol/ Dextrose 103.3333 ml @ 51.667 m... Q2H IV Last administered on 12/01/18at 15:15; Start 12/01/18 at 11:30; Stop 12/01/18 at 17:29; Status DC Albumin Human 500 ml @ 125 mls/hr 1X ONCE IV Last administered on 12/01/18at 10:57; Start 12/01/18 at 11:00; Stop 12/01/18 at 14:59; Status DC Albumin Human 500 ml @ As Directed STK-MED ONCE IV ; Start 12/01/18 at 10:50; Stop 12/01/18 at 10:50; Status DC Sodium Phosphate 20 mmol/Dextrose 256.6667 ml @ 64.167 m... 1X ONCE IV ; Start 12/01/18 at 11:45; Stop 12/01/18 at 15:44; Status UNV Famotidine (Pepcid Vial) 20 mg QHS IVP Last administered on 12/03/18at 21:29; Start 12/01/18 at 21:00 Norepinephrine Bitartrate 250 ml @ 14.836 mls/ hr CONT PRN IV SEE I/O RECORD Last administered on 12/02/18at 08:37; Start 12/02/18 at 08:15 Potassium Chloride/Water 50 ml @ 50 mls/hr Q1H IV Last administered on 12/02/18at 09:42; Start 12/02/18 at 08:30; Stop 12/02/18 at 10:29; Status DC Magnesium Sulfate 50 ml @ 25 mls/hr 1X ONCE IV Last administered on 12/02/18at 08:38; Start 12/02/18 at 08:15; Stop 12/02/18 at 10:14; Status DC Amiodarone HCl 150 mg/Dextrose 103 ml @ 618 mls/hr 1X ONCE IV Last administered on 12/02/18at 10:23; Start 12/02/18 at 09:45; Stop 12/02/18 at 09:54; Status DC Digoxin (Lanoxin) 500 mcg 1X ONCE IV Last administered on 12/02/18at 12:21; Start 12/02/18 at 12:00; Stop 12/02/18 at 12:01; Status DC Albuterol/ Ipratropium (Duoneb) 3 ml RTQID NEB Last administered on 12/04/18at 08:26; Start 12/02/18 at 20:00; Stop 12/04/18 at 11:17; Status DC Insulin Human Lispro (HumaLOG) 0-9 UNITS TIDWMEALS SQ ; Start 12/03/18 at 08:00 Dextrose (Dextrose 50%-Water Syringe) 12.5 gm PRN Q15MIN PRN IV SEE COMMENTS; Start 12/02/18 at 18:30; Status UNV Acetaminophen (Tylenol) 650 mg PRN Q6HRS PRN PEG MILD PAIN / TEMP; Start 12/02/18 at 18:30 Ondansetron HCl (Zofran) 4 mg PRN Q6HRS PRN IVP NAUSEA/VOMITING Last administered on 12/04/18at 12:47; Start 12/02/18 at 18:30 Propofol 100 ml @ 1.187 mls/ hr CONT PRN IV SEE I/O RECORD Last administered on 12/02/18at 19:38; Start 12/02/18 at 19:30 Oxycodone/ Acetaminophen (Percocet 5/325) 1 tab PRN Q4HRS PRN PO SEVERE PAIN 7- 10; Start 12/03/18 at 02:30; Stop 12/03/18 at 03:10; Status DC Diphenhydramine HCl (Benadryl) 25 mg PRN Q6HRS PRN IVP ITCHING; Start 12/03/18 at 02:30; Stop 12/03/18 at 03:10; Status DC Hydralazine HCl (Apresoline Inj) 10 mg PRN Q4HRS PRN IVP ELEVATED BP, SEE COMMENTS Last administered on 12/04/18at 08:47; Start 12/03/18 at 10:00 Hydralazine HCl (Apresoline Inj) 20 mg STK-MED ONCE .ROUTE ; Start 12/03/18 at 10:01; Stop 12/03/18 at 10:02; Status DC Amino Acids/ Glycerin/ Electrolytes 1,000 ml @ 50 mls/hr Q20H IV Last administered on 12/04/18at 07:49; Start 12/03/18 at 10:30 Amlodipine Besylate (Norvasc) 10 mg DAILY PO Last administered on 12/03/18at 12:11; Start 12/03/18 at 12:30 Hydralazine HCl (Apresoline) 50 mg TID PO ; Start 12/03/18 at 14:00 Isosorbide Mononitrate (Imdur) 30 mg DAILY PO Last administered on 12/03/18at 12:11; Start 12/03/18 at 12:30; Stop 12/04/18 at 09:29; Status DC Metoprolol Succinate (Toprol Xl) 25 mg DAILY PO Last administered on 12/03/18at 12:10; Start 12/03/18 at 12:30 Nitroglycerin/ Dextrose 250 ml @ 1.5 mls/hr CONT PRN IV SEE I/O RECORD Last administered on 12/04/18at 13:03; Start 12/04/18 at 09:30 Potassium Chloride/Water 50 ml @ 50 mls/hr Q1H IV Last administered on 12/04/18at 11:53; Start 12/04/18 at 11:00; Stop 12/04/18 at 12:59; Status DC Amiodarone HCl (Cordarone) 200 mg DAILY PO ; Start 12/04/18 at 11:30 Apixaban (Eliquis) 5 mg BID PO ; Start 12/04/18 at 21:00; Stop 12/04/18 at 13:18; Status DC Aspirin (Ecotrin) 81 mg DAILY PO ; Start 12/04/18 at 11:30 Colestipol HCl (Colestid) 1 gm BID@1000,2200 PO ; Start 12/04/18 at 22:00 Cyclobenzaprine HCl (Flexeril) 10 mg DAILY PO ; Start 12/05/18 at 09:00 Diclofenac Sodium (Voltaren) 1 myrtle QID TP Last administered on 12/04/18at 13:02; Start 12/04/18 at 13:00 Ferrous Sulfate (Feosol) 325 mg DAILY PO ; Start 12/05/18 at 09:00 Furosemide (Lasix) 20 mg DAILY PO ; Start 12/05/18 at 09:00 Gabapentin (Neurontin) 200 mg TID PO ; Start 12/04/18 at 14:00 Acetaminophen/ Hydrocodone Bitart (Lortab 5/325) 1 tab PRN Q6HRS PRN PO PAIN; Start 12/04/18 at 11:15 Albuterol/ Ipratropium (Duoneb) 3 ml RTQID IH Last administered on 12/04/18at 13:13; Start 12/04/18 at 12:00 Levothyroxine Sodium (Synthroid) 150 mcg DAILY06 PO ; Start 12/05/18 at 06:00 Pantoprazole Sodium (Protonix) 40 mg DAILY06 PO ; Start 12/05/18 at 06:00 Tamsulosin HCl (Flomax) 0.4 mg DAILY PO ; Start 12/05/18 at 09:00 Tramadol HCl (Ultram) 50 mg PRN Q6HRS PRN PO MODERATE PAIN; Start 12/04/18 at 11:15 Trazodone HCl (Desyrel) 200 mg HS PO ; Start 12/04/18 at 21:00 Dextrose 1,000 ml @ 30 mls/hr Q24H IV Last administered on 12/04/18at 11:48; Start 12/04/18 at 11:45 Enoxaparin Sodium (Lovenox 80mg Syringe) 80 mg Q12HR SQ ; Start 12/04/18 at 14:00 Morphine Sulfate (Morphine Sulfate) 2 mg PRN Q2HR PRN IV PAIN Last administered on 12/04/18at 13:30; Start 12/04/18 at 13:30 Active Scripts Active Lantus Solostar (Insulin Glargine,Hum.rec.anlog) 100 Unit/1 Ml Insuln.pen 30 Units SQ QHS 14 Days Gabapentin (Gabapentin) 100 Mg Capsule 200 Mg PO TID MDD 1 14 Days Hydrocodone-Apap 5-325 (Hydrocodone Bit/Acetaminophen) 1 Each Tablet 1 Tab PO PRN Q6HRS PRN Amlodipine Besylate 10 Mg Tablet 10 Mg PO DAILY MDD 1 Reported Tramadol Hcl 50 Mg Tablet 50 Mg PO Q6HRS PRN Cyclobenzaprine Hcl 10 Mg Tablet 10 Mg PO DAILY Flomax (Tamsulosin Hcl) 0.4 Mg Cap.er.24h 0.4 Mg PO DAILY Aspir-Low (Aspirin) 81 Mg Tablet.dr 81 Mg PO DAILY Amiodarone Hcl 200 Mg Tablet 200 Mg PO DAILY Eliquis (Apixaban) 5 Mg Tablet 5 Mg PO DAILY Furosemide 40 Mg Tablet 20 Mg PO DAILY Fosamax (Alendronate Sodium) 70 Mg Tablet 1 Tab PO WEEKLY wednesday Vitamin D2 (Ergocalciferol (Vitamin D2)) 50,000 Unit Capsule 1 Cap PO TWICE WEEK LY WED AND wed Metoprolol Succinate ( Xl ) (Metoprolol Succinate) 25 Mg Tab.er.24h 50 Mg PO DAILY Voltaren (Diclofenac Sodium) 100 Gm Gel..gram. 1 Gm TP QID Ferrous Sulfate 325 Mg Tablet 325 Mg PO DAILY Colestipol Hcl 1 Gm Tablet 1 Gm PO BID Lipitor (Atorvastatin Calcium) 80 Mg Tablet 80 Mg PO HS Levothyroxine Sodium 150 Mcg Tablet 1 Tab PO DAILY Duoneb 0.5-3(2.5) Mg/3 Ml (Albuterol/Ipratropium) 3 Ml Ampul.neb 3 Ml IH QID Ventolin Hfa Inhaler (Albuterol Sulfate) 18 Gm Hfa.aer.ad 2 Puff INH Q4HRS PRN Venlafaxine Hcl Er (Venlafaxine Hcl) 150 Mg Cap.er.24h 150 Mg PO DAILY Novolog Flexpen (Insulin Aspart) 100 Unit/1 Ml Insuln.pen 18 Unit SQ TIDAC Pantoprazole Sodium (Pantoprazole Sodium) 40 Mg Tablet.dr 40 Mg PO DAILY Trazodone Hcl 100 Mg Tablet 200 Mg PO HS Vitals/I & O Vital Sign - Last 24 Hours 12/03/18 12/03/18 12/03/18 12/03/18 14:00 15:00 16:00 16:00 Temp 98.1 98.1 Pulse 76 80 77 Resp 22 25 20 B/P (MAP) 157/52 (87) 143/51 (81) 171/76 (107) Pulse Ox 100 91 98 O2 Delivery Nasal Cannula Nasal Cannula Nasal Cannula Nasal Cannula O2 Flow Rate 3.0 3.0 3.0 3.0 12/03/18 12/03/18 12/03/18 12/03/18 16:17 17:00 18:00 18:23 Pulse 76 76 75 Resp 19 19 B/P (MAP) 178/72 (107) 184/68 (106) 184/68 Pulse Ox 97 97 97 O2 Delivery Nasal Cannula Nasal Cannula Nasal Cannula O2 Flow Rate 3.0 3.0 3.0 12/03/18 12/03/18 12/03/18 12/03/18 19:00 19:56 20:00 20:00 Temp 97.8 97.8 Pulse 84 82 Resp 17 17 B/P (MAP) 134/62 (86) 183/80 (114) Pulse Ox 98 97 100 O2 Delivery Nasal Cannula Nasal Cannula Nasal Cannula Nasal Cannula O2 Flow Rate 3.0 3.0 3.0 3.0 12/03/18 12/03/18 12/03/18 12/03/18 21:00 21:30 22:00 23:00 Pulse 84 85 82 Resp 16 16 16 B/P (MAP) 165/71 (102) 185/80 (115) 182/50 (94) Pulse Ox 100 98 100 100 O2 Delivery Nasal Cannula BiPAP/CPAP BiPAP/CPAP BiPAP/CPAP O2 Flow Rate 3.0 12/04/18 12/04/18 12/04/18 12/04/18 00:00 00:00 01:00 01:43 Temp 98.0 98.0 Pulse 82 78 81 Resp 16 16 B/P (MAP) 185/68 (107) 187/81 (116) 200/79 Pulse Ox 100 100 O2 Delivery Nasal Cannula Nasal Cannula Nasal Cannula O2 Flow Rate 3.0 3.0 3.0 12/04/18 12/04/18 12/04/18 12/04/18 02:00 03:00 04:00 04:00 Temp 98.3 98.3 Pulse 80 80 78 Resp 16 16 22 B/P (MAP) 188/70 (109) 164/80 (108) 186/78 (114) Pulse Ox 100 100 98 O2 Delivery Nasal Cannula Nasal Cannula Nasal Cannula Nasal Cannula O2 Flow Rate 3.0 3.0 3.0 3.0 12/04/18 12/04/18 12/04/18 12/04/18 05:00 06:00 07:00 08:00 Pulse 82 82 84 Resp 26 21 24 B/P (MAP) 161/54 (89) 174/74 (107) 176/61 (99) Pulse Ox 98 97 95 O2 Delivery Nasal Cannula Nasal Cannula Nasal Cannula Nasal Cannula O2 Flow Rate 3.0 3.0 3.0 3.0 12/04/18 12/04/18 12/04/18 12/04/18 08:00 08:27 08:30 08:47 Temp 97.7 97.7 Pulse 81 79 83 Resp 24 20 B/P (MAP) 191/90 (123) 210/101 (137) 210/101 Pulse Ox 100 98 96 O2 Delivery Nasal Cannula Nasal Cannula Nasal Cannula O2 Flow Rate 3.0 3.0 3.0 12/04/18 12/04/18 12/04/18 12/04/18 09:00 10:00 11:00 12:00 Pulse 82 82 82 Resp 31 22 21 B/P (MAP) 181/81 (114) 167/53 (91) 160/74 (102) Pulse Ox 96 96 97 O2 Delivery Nasal Cannula Nasal Cannula Nasal Cannula Nasal Cannula O2 Flow Rate 3.0 2.0 2.0 2.0 12/04/18 12/04/18 12/04/18 12/04/18 12:00 13:00 13:15 13:30 Temp 97.5 97.5 Pulse 82 80 Resp 23 19 B/P (MAP) 175/76 (109) 186/63 (104) Pulse Ox 96 100 96 96 O2 Delivery Nasal Cannula Nasal Cannula Nasal Cannula Nasal Cannula O2 Flow Rate 2.0 2.0 3.0 2.0 Intake and Output 12/03/18 12/03/18 12/04/18 15:00 23:00 07:00 Intake Total 150 ml 422 ml 572 ml Output Total 440 ml 355 ml 285 ml Balance -290 ml 67 ml 287 ml Nutrition Consultation Dietary Evaluation: Recommendations by RD: Add supplement feedings Comments: NPO day 2, REC TF for total nutrition with protein module due to skin breakdown Expected Outcomes/Goals: to meet > 75% est nutr needs via TF -nutrition support improved wound status Interpretation of weight loss: >10% in 6 months Malnutrition Findings: Body Fat Depletion (Non Severe: Mild Depletion Weight Status: Overweight WINSTON KHAN MD Dec 04, 2018 13:33
[2018-12-04] MEDS: GABAPENTIN 100 MG CAPSULE. PO SCH ×2 (13:38→20:45)
[2018-12-04] MEDS: IV NORMAL SALINE 1000ML BAG 1,000 ML IV SCH (15:11)
[2018-12-04] MEDS: traZODone 100 MG TABLET. PO SCH (20:45)
[2018-12-04] MEDS: COLESTIPOL HCL 1 GM TABLET PO SCH (20:45)
[2018-12-04] MEDS: LEVOTHYROXINE 150 MCG TABLET PO SCH (20:45)
[2018-12-04] MEDS: PANTOPRAZOLE 40 MG TABLET.DR. PO SCH (20:45)
[2018-12-04] MEDS ORDERED: APIXABAN 5 MG TABLET. PO SCH (21:00)
[2018-12-04] MEDS: FAMOTIDINE 20 MG/2 ML VIAL IVP SCH (21:32)
[2018-12-04] MEDS ORDERED: SALIVA STIMULANT AGENT 44ML SPRAY BOTTLE. PO PRN (23:30)
[2018-12-04] MEDS ORDERED: diphenhydrAMINE 50 MG/ML VIAL IVP ONE (23:30)
[2018-12-05] VITALS (30 sets, daily range): BP systolic 90–186; BP diastolic 56–98
[2018-12-05] MEDS: AMINO AC 3%/ELECTROLYTE/GLYCER 1,000 ML IV SCH (05:11)
[2018-12-05] MEDS: PIPERACILLIN/TAZOBACTAM 3.375 GM in IV NORMAL SALINE 50ML 50 ML IV SCH ×3 (05:18→18:08)
[2018-12-05 05:51] LABS: ALBUMIN 1.9 g/dL (3.4-5.0); ALBUMIN/GLOBULIN RATIO 0.5 (1.0-1.7); CALCIUM 8.8 mg/dL (8.5-10.1); CREATININE 1.1 mg/dL (0.6-1.0); GFR 49.1; TOTAL BILIRUBIN 0.4 mg/dL (0.2-1.0)
[2018-12-05 06:00] LABS: BASO % 1 % (0-3); EOS # 0.1 x10^3/uL (0.0-0.7); EOS % 3 % (0-3); HEMATOCRIT 24.8 % (36.0-47.0); HEMOGLOBIN 7.7 g/dL (12.0-15.5); LYMPH # 0.5 x10^3/uL (1.0-4.8); LYMPH % 10 % (24-48); MEAN CORPUSCULAR HEMOGLOBIN 25 pg (25-35); MEAN CORPUSCULAR HGB CONC 31 g/dL (31-37); MEAN CORPUSCULAR VOLUME 79 fL (79-100); MONO # 0.8 x10^3/uL (0.0-1.1); MONO % 17 % (0-9); NEUT # 3.2 x10^3/uL (1.8-7.7); NEUT % 70 % (31-73); PLATELET COUNT 181 x10^3/uL (140-400); RED BLOOD COUNT 3.12 x10^6/uL (3.50-5.40); WHITE BLOOD COUNT 4.6 x10^3/uL (4.0-11.0)
[2018-12-05] MEDS: INSULIN LISPRO 300 UNITS/3 ML VIAL. SQ SCH ×3 (08:00→17:00)
[2018-12-05] MEDS: IPRATRPIUM/ALBUTEROL 0.5/2.5MG 3 ML NEBU. IH SCH ×4 (08:24→20:15)
--- NOTE | 2018-12-05 08:28 | RAD ---
CHEST AP ONLY Clinical Indication: Intubated Comparison: 12/04/2018 AP view of the chest. Findings: Portable upright frontal view chest was obtained. Right internal jugular catheter ends overlying superior vena cava. The cardiomediastinal silhouette is normal. Pulmonary interstitial thickening or edema is noted. There is no pneumothorax. Residual pleural effusions greater on the left noted. No acute bone abnormality. IMPRESSION: Pulmonary vasculature congestion with interstitial edema or infiltrate is slightly increased in interval. Small pleural effusions again seen. Electronically signed by: Aleksey Mckeon MD (12/05/2018 8:25 AM) [facility]
[2018-12-05] MEDS: INSULIN GLARGINE SYRINGE. SQ SCH ×2 (08:58→21:15)
[2018-12-05] MEDS: ASPIRIN ENTERIC COATED 81 MG TABLET.DR. PO SCH (08:59)
[2018-12-05] MEDS: AMIODARONE HCL 200 MG TABLET. PO SCH (08:59)
[2018-12-05] MEDS: FUROSEMIDE 20 MG TABLET PO SCH (09:00)
[2018-12-05] MEDS: CYCLOBENZAPRINE 10 MG TABLET. PO SCH (09:00)
[2018-12-05] MEDS: TAMSULOSIN 0.4 MG CAP.ER.24H. PO SCH (09:00)
[2018-12-05] MEDS: amLODIPine BESYLATE 10 MG TABLET PO SCH (09:00)
[2018-12-05] MEDS: FERROUS SULFATE 325 MG TABLET. PO SCH (09:00)
[2018-12-05] MEDS: SENNOSIDES/DOCUSATE 8.6/50MG TABLET. PO SCH ×2 (09:00→20:47)
[2018-12-05] MEDS: METOPROLOL SUCC 24HR ER 25 MG TAB.ER.24H. PO SCH (09:00)
[2018-12-05] MEDS: GABAPENTIN 100 MG CAPSULE. PO SCH ×3 (09:00→20:46)
[2018-12-05] MEDS: DICLOFENAC SODIUM 1% TOPICAL GEL 100GM TUBE. TP SCH ×4 (09:01→21:14)
[2018-12-05] MEDS: COLESTIPOL HCL 1 GM TABLET PO SCH ×2 (09:45→21:15)
[2018-12-05] MEDS: DAPTOmycin (GENERIC) IVPB 320 MG in IV NORMAL SALINE 50ML 50 ML IV SCH (09:45)
--- NOTE | 2018-12-05 10:03 | PDOC ---
Infectious Disease Note Subjective Subjective c/o nausea last night, better this morning Failed swallow study C/o cough Denies pain/SOA/F/C PPN ROS ROS per HPI Vital Sign Vital Signs Vital Signs Date Time Temp Pulse Resp B/P (MAP) Pulse Ox O2 Delivery O2 Flow Rate FiO2 12/05/18 09:00 83 22 186/64 (104) 97 Nasal Cannula 3.0 12/05/18 07:00 98.0 98.0 Physical Exam PHYSICAL EXAM GENERAL: Propped up in bed, awake, calm, NAD HEENT: Pupils equal, oral cavity pink, dry NECK: Supple LUNGS: clear anteriorly HEART: S1, S2 ABDOMEN: Soft, no guarding : Cadet EXTREMITIES: Chronic venous insufficiency changes present. 1+ edema RLE. SKIN: warm to touch. Sacrococcygeal wound. NEUROLOGIC: Awake, responds appropriately [facility] clean Labs Lab Laboratory Tests Test 12/04/18 12:25 12/04/18 17:25 12/04/18 21:39 12/05/18 05:20 Glucose (Fingerstick) 146 mg/dL (70-99) 167 mg/dL (70-99) 170 mg/dL (70-99) White Blood Count 4.6 x10^3/uL (4.0-11.0) Red Blood Count 3.12 x10^6/uL (3.50-5.40) Hemoglobin 7.7 g/dL (12.0-15.5) Hematocrit 24.8 % (36.0-47.0) Mean Corpuscular Volume 79 fL (79-100) Mean Corpuscular Hemoglobin 25 pg (25-35) Mean Corpuscular Hemoglobin Concent 31 g/dL (31-37) Red Cell Distribution Width 22.0 % (11.5-14.5) Platelet Count 181 x10^3/uL (140-400) Neutrophils (%) (Auto) 70 % (31-73) Lymphocytes (%) (Auto) 10 % (24-48) Monocytes (%) (Auto) 17 % (0-9) Eosinophils (%) (Auto) 3 % (0-3) Basophils (%) (Auto) 1 % (0-3) Neutrophils # (Auto) 3.2 x10^3/uL (1.8-7.7) Lymphocytes # (Auto) 0.5 x10^3/uL (1.0-4.8) Monocytes # (Auto) 0.8 x10^3/uL (0.0-1.1) Eosinophils # (Auto) 0.1 x10^3/uL (0.0-0.7) Basophils # (Auto) 0.0 x10^3/uL (0.0-0.2) Sodium Level 149 mmol/L (136-145) Potassium Level 3.0 mmol/L (3.5-5.1) Chloride Level 108 mmol/L (98-107) Carbon Dioxide Level 37 mmol/L (21-32) Anion Gap 4 (6-14) Blood Urea Nitrogen 20 mg/dL (7-20) Creatinine 1.1 mg/dL (0.6-1.0) Estimated GFR (Cockcroft-Gault) 49.1 BUN/Creatinine Ratio 18 (6-20) Glucose Level 95 mg/dL (70-99) Calcium Level 8.8 mg/dL (8.5-10.1) Total Bilirubin 0.4 mg/dL (0.2-1.0) Aspartate Amino Transf (AST/SGOT) 69 U/L (15-37) Alanine Aminotransferase (ALT/SGPT) 491 U/L (14-59) Alkaline Phosphatase 101 U/L (46-116) Creatine Kinase 59 U/L (26-192) Total Protein 6.0 g/dL (6.4-8.2) Albumin 1.9 g/dL (3.4-5.0) Albumin/Globulin Ratio 0.5 (1.0-1.7) Test 12/05/18 08:56 Glucose (Fingerstick) 75 mg/dL (70-99) IMPRESSION: Pulmonary vasculature congestion with interstitial edema or infiltrate is slightly increased in interval. Small pleural effusions again seen. Micro 11/30. BLOOD CULTURE Final AMENDED REPORT: 4 OF 4 BOTTLES ARE NOW POSITIVE FOR GRAM POSITIVE COCCI IN CLUSTERS. (1 IN 4 FOR GRAM NEGATIVE RODS). BLD CULT RESULT 1 Preliminary Coagulase negative Staphylococcus species. MICS are expressed in micrograms per mL Antibiotic RSLT#1 Ciprofloxacin R>=8 Clindamycin S<=0.25 Erythromycin S<=0.25 Gentamicin S<=0.5 Levofloxacin R>=8 Linezolid S =1 Nitrofurantoin S<=16 Oxacillin R>=4 Penicillin R>=0.5 Quinupristin/Dalfopristin S<=0.25 Rifampin S<=0.5 Tetracycline S<=1 Trimethoprim/Sulfa R =160 Vancomycin S =1 BLD CULT RESULT 1 Preliminary Gram negative rods Recovered from anaerobic bottle only. BLD CULT RESULT 2 Preliminary Comment Viridans streptococcus group 11/30. URINE CULTURE RES 1 Final Streptococcus species Enterococcus faecium MICS are expressed in micrograms per mL Antibiotic RSLT#1 Ciprofloxacin R>=8 Levofloxacin R>=8 Nitrofurantoin I =64 Penicillin R>=64 Tetracycline R>=16 Vancomycin S<=0.5 Objective Assessment Sepsis with MRSE, strep viridans and GNR bacteremia, 11/30 Enterococcus (vanc-S only) UTI, 11/30 Lactic acidosis Suspected aspiration pneumonia. Congestive heart failure. Troponin leak. Hypoxic respiratory failure s/p extubation Diabetes. Sacrococcygeal decubitus. Ischemic colitis vs ulcerated tumor h/o A-fib Plan Plan of Care cont Dapto and Zosyn Monitor abx toxicities/side effects. CK 59 f/u cultures surgery consult for possible ischemic colitis vs tumor, daughter does not remember her last colonoscopy D/w nursing Critically ill - improving Attending Co-Sign Attending Co-Sign The patient was seen and interviewed as well as examined at the bedside. The maria fernanda morales was reviewed. The case was discussed. Agree with the plan of care. GUY ROLDAN APRN Dec 05, 2018 10:03 GEO WILL MD Dec 05, 2018 14:30
--- NOTE | 2018-12-05 10:13 | PDOC ---
OBJECTIVE Vital Signs Vital Signs Date Time Temp Pulse Resp B/P (MAP) Pulse Ox O2 Delivery O2 Flow Rate FiO2 12/05/18 09:00 83 22 186/64 (104) 97 Nasal Cannula 3.0 12/05/18 07:00 98.0 98.0 I & 0 Intake and Output 12/05/18 07:00 Intake Total 565 ml Output Total 1505 ml Balance -940 ml Intake Oral 0 ml Other 565 ml Output Urine Total 1505 ml PHYSICAL EXAM Physical Exam GENERAL: Propped up in bed, awake, calm, NAD HEENT: NECK: Supple LUNGS: clear anteriorly HEART: S1, S2 ABDOMEN: Soft, : [place]et + EXTREMITIES: Chronic venous insufficiency changes present. 1+ edema RLE. SKIN Sacrococcygeal wound. NEUROLOGIC: Awake, responds appropriately DIAGNOSIS/ASSESSMENT Assessment & Plan MANDIE- Improving K and Bicarb stable Supportive care, I/O, Monitor Hypernatremia- on D 5 W Monitor Hypokalemia- replace per protocol Sepsis with MRSE, strep viridans and GNR bacteremia, 11/30 Enterococcus (vanc-S only) UTI, 11/30 Suspected aspiration pneumonia. Congestive heart failure stable On lasix, Cardiology following Hypoxic respiratory failure s/p extubation Diabetes with DKA Sacrococcygeal decubitus. Ischemic colitis vs ulcerated tumor h/o A-fib HTN- BP High Antihypertensives Optimize per cardiology COMMENT/RELEVANT DATA Meds Current Medications Medications (Trade) Dose Ordered Sig/Kerry Start Time Stop Time Status Last Admin Dose Admin Acetaminophen (Tylenol) 650 mg PRN Q6HRS PRN 12/02/18 18:30 Acetaminophen/ Hydrocodone Bitart (Lortab 5/325) 1 tab PRN Q6HRS PRN 12/04/18 11:15 Albumin Human 500 ml @ As Directed STK-MED ONCE 12/01/18 10:50 12/01/18 10:50 DC Albuterol/ Ipratropium (Duoneb) 3 ml RTQID 12/04/18 12:00 12/05/18 08:24 3 ML Amino Acids/ Glycerin/ Electrolytes 1,000 ml @ 50 mls/hr Q20H 12/03/18 10:30 12/05/18 05:11 50 MLS/HR Amiodarone HCl (Cordarone) 200 mg DAILY 12/04/18 11:30 Amiodarone HCl 150 mg/Dextrose 103 ml @ 618 mls/hr 1X ONCE 12/02/18 09:45 12/02/18 09:54 DC 12/02/18 10:23 618 MLS/HR Amlodipine Besylate (Norvasc) 10 mg DAILY 12/03/18 12:30 12/03/18 12:11 10 MG Apixaban (Eliquis) 5 mg BID 12/04/18 21:00 12/04/18 13:18 DC Aspirin (Aspirin Rectal Supp) 300 mg 1X ONCE 11/30/18 16:15 11/30/18 16:20 DC 11/30/18 16:40 300 MG Aspirin (Ecotrin) 81 mg DAILY 12/04/18 11:30 Colestipol HCl (Colestid) 1 gm BID@1000,2200 12/04/18 22:00 Cyclobenzaprine HCl (Flexeril) 10 mg DAILY 12/05/18 09:00 Daptomycin 320 mg/ Sodium Chloride 50 ml @ 100 mls/hr Q24H 12/01/18 10:00 12/05/18 09:45 100 MLS/HR Dextrose 1,000 ml @ 30 mls/hr Q24H 12/04/18 11:45 12/04/18 11:48 30 MLS/HR Dextrose (Dextrose 50%-Water Syringe) 12.5 gm PRN Q15MIN PRN 12/02/18 18:30 UNV Diclofenac Sodium (Voltaren) 1 myrtle QID 12/04/18 13:00 12/05/18 09:01 1 MYRTLE Digoxin (Lanoxin) 500 mcg 1X ONCE 12/02/18 12:00 12/02/18 12:01 DC 12/02/18 12:21 500 MCG Diphenhydramine HCl (Benadryl) 25 mg 1X ONCE 12/04/18 23:30 12/04/18 23:31 DC 12/04/18 23:43 25 MG Enoxaparin Sodium (Lovenox 80mg Syringe) 80 mg Q12HR 12/04/18 14:00 12/05/18 09:45 80 MG Etomidate (Amidate) 20 mg STK-MED ONCE 11/30/18 11:28 11/30/18 11:29 DC Famotidine (Pepcid Vial) 20 mg QHS 12/01/18 21:00 12/04/18 21:32 20 MG Fentanyl Citrate 30 ml @ 0 mls/hr CONT PRN PRN 11/30/18 15:15 12/02/18 08:53 2.5 MLS/HR Ferrous Sulfate (Feosol) 325 mg DAILY 12/05/18 09:00 Furosemide (Lasix) 20 mg DAILY 12/05/18 09:00 Gabapentin (Neurontin) 200 mg TID 12/04/18 14:00 Heparin Sodium (Porcine) (Heparin Sodium) 5,000 unit Q8HRS 11/30/18 22:00 UNV Hydralazine HCl (Apresoline Inj) 20 mg STK-MED ONCE 12/03/18 10:01 12/03/18 10:02 DC Hydralazine HCl (Apresoline) 50 mg TID 12/03/18 14:00 Insulin Glargine (Lantus Syringe) 20 unit Q12HR 11/30/18 21:00 12/05/18 08:58 20 UNIT Insulin Human Lispro (HumaLOG) 0-9 UNITS TIDWMEALS 12/03/18 08:00 Insulin Human Regular 150 ml @ 0 mls/hr 1X ONCE 11/30/18 12:30 11/30/18 12:33 DC 11/30/18 13:41 10.7 MLS/HR Insulin Human Regular 150 unit/ Sodium Chloride 151.5 ml @ 0 mls/hr CONT PRN 11/30/18 16:00 Isosorbide Mononitrate (Imdur) 30 mg DAILY 12/03/18 12:30 12/04/18 09:29 DC 12/03/18 12:11 30 MG Levothyroxine Sodium (Synthroid) 150 mcg DAILY06 12/05/18 06:00 Magnesium Sulfate 50 ml @ 25 mls/hr 1X ONCE 12/02/18 08:15 12/02/18 10:14 DC 12/02/18 08:38 25 MLS/HR Metoprolol Succinate (Toprol Xl) 25 mg DAILY 12/03/18 12:30 12/03/18 12:10 25 MG Midazolam HCl 100 ml @ 5 mls/hr CONT PRN 11/30/18 18:15 12/05/18 10:00 DC 12/01/18 00:19 5 MLS/HR Midazolam HCl (Versed) 2 mg 1X ONCE 11/30/18 11:45 11/30/18 11:46 DC 11/30/18 11:51 2 MG Morphine Sulfate (Morphine Sulfate) 2 mg PRN Q2HR PRN 12/04/18 13:30 12/04/18 21:33 2 MG Naloxone HCl (Narcan) 0.4 mg PRN Q2MIN PRN 11/30/18 15:15 Nitroglycerin/ Dextrose 250 ml @ 1.5 mls/hr CONT PRN 12/04/18 09:30 12/04/18 13:03 1.5 MLS/HR Norepinephrine Bitartrate 250 ml @ 14.836 mls/ hr CONT PRN 12/02/18 08:15 12/02/18 08:37 4.5 MLS/HR Ondansetron HCl (Zofran) 4 mg PRN Q6HRS PRN 12/02/18 18:30 12/04/18 12:47 4 MG Oxycodone/ Acetaminophen (Percocet 5/325) 1 tab PRN Q4HRS PRN 12/03/18 02:30 12/03/18 03:10 DC Pantoprazole Sodium (Protonix) 40 mg DAILY06 12/05/18 06:00 Piperacillin Sod/ Tazobactam Sod 3.375 gm/Sodium Chloride 50 ml @ 100 mls/hr Q6HRS 11/30/18 18:00 12/05/18 05:18 100 MLS/HR Potassium Chloride/Water 50 ml @ 50 mls/hr Q1H 12/04/18 11:00 12/04/18 12:59 DC 12/04/18 11:53 50 MLS/HR Potassium Phosphate 10 mmol/ Dextrose 103.3333 ml @ 51.667 m... Q2H 12/01/18 11:30 12/01/18 17:29 DC 12/01/18 15:15 51.667 MLS/HR Propofol 100 ml @ 1.187 mls/ hr CONT PRN 12/02/18 19:30 12/05/18 10:00 DC 12/02/18 19:38 1.187 MLS/HR Saliva Substitute (Biotene Moisturizing Mouth) 2 spray PRN Q15MIN PRN 12/04/18 23:30 12/04/18 23:44 2 SPRAY Senna/Docusate Sodium (Senna Plus) 1 tab BID 11/30/18 21:00 12/02/18 20:39 1 TAB Sodium Chloride (Normal Saline Flush) 3 ml QSHIFT PRN 11/30/18 16:00 Sodium Phosphate 20 mmol/Dextrose 256.6667 ml @ 64.167 m... 1X ONCE 12/01/18 11:45 12/01/18 15:44 UNV Succinylcholine Chloride (Anectine) 200 mg STK-MED ONCE 11/30/18 11:28 11/30/18 11:29 DC Tamsulosin HCl (Flomax) 0.4 mg DAILY 12/05/18 09:00 Tramadol HCl (Ultram) 50 mg PRN Q6HRS PRN 12/04/18 11:15 Trazodone HCl (Desyrel) 200 mg HS 12/04/18 21:00 Vancomycin HCl 250 ml @ 250 mls/hr 1X ONCE 11/30/18 11:45 11/30/18 12:44 DC 11/30/18 12:01 250 MLS/HR Lab Laboratory Tests Test 12/04/18 12:25 12/04/18 17:25 12/04/18 21:39 12/05/18 05:20 Glucose (Fingerstick) 146 mg/dL (70-99) 167 mg/dL (70-99) 170 mg/dL (70-99) White Blood Count 4.6 x10^3/uL (4.0-11.0) Red Blood Count 3.12 x10^6/uL (3.50-5.40) Hemoglobin 7.7 g/dL (12.0-15.5) Hematocrit 24.8 % (36.0-47.0) Mean Corpuscular Volume 79 fL (79-100) Mean Corpuscular Hemoglobin 25 pg (25-35) Mean Corpuscular Hemoglobin Concent 31 g/dL (31-37) Red Cell Distribution Width 22.0 % (11.5-14.5) Platelet Count 181 x10^3/uL (140-400) Neutrophils (%) (Auto) 70 % (31-73) Lymphocytes (%) (Auto) 10 % (24-48) Monocytes (%) (Auto) 17 % (0-9) Eosinophils (%) (Auto) 3 % (0-3) Basophils (%) (Auto) 1 % (0-3) Neutrophils # (Auto) 3.2 x10^3/uL (1.8-7.7) Lymphocytes # (Auto) 0.5 x10^3/uL (1.0-4.8) Monocytes # (Auto) 0.8 x10^3/uL (0.0-1.1) Eosinophils # (Auto) 0.1 x10^3/uL (0.0-0.7) Basophils # (Auto) 0.0 x10^3/uL (0.0-0.2) Sodium Level 149 mmol/L (136-145) Potassium Level 3.0 mmol/L (3.5-5.1) Chloride Level 108 mmol/L (98-107) Carbon Dioxide Level 37 mmol/L (21-32) Anion Gap 4 (6-14) Blood Urea Nitrogen 20 mg/dL (7-20) Creatinine 1.1 mg/dL (0.6-1.0) Estimated GFR (Cockcroft-Gault) 49.1 BUN/Creatinine Ratio 18 (6-20) Glucose Level 95 mg/dL (70-99) Calcium Level 8.8 mg/dL (8.5-10.1) Total Bilirubin 0.4 mg/dL (0.2-1.0) Aspartate Amino Transf (AST/SGOT) 69 U/L (15-37) Alanine Aminotransferase (ALT/SGPT) 491 U/L (14-59) Alkaline Phosphatase 101 U/L (46-116) Creatine Kinase 59 U/L (26-192) Total Protein 6.0 g/dL (6.4-8.2) Albumin 1.9 g/dL (3.4-5.0) Albumin/Globulin Ratio 0.5 (1.0-1.7) Test 12/05/18 08:56 Glucose (Fingerstick) 75 mg/dL (70-99) Results All relevant outside records, renal labs, imaging studies, telemetry/EKG's were reviewed. Other Pulmonary vasculature congestion with interstitial edema or infiltrate is slightly increased in interval. Small pleural effusions again seen. AMBAR HARTMAN MD Dec 05, 2018 10:13
--- NOTE | 2018-12-05 10:39 | PDOC ---
PULMONARY PROGRESS NOTES Subjective extubated,12/03, on 02, sob better, has cough, no pain, is on home o2 Vitals Vital Signs Date Time Temp Pulse Resp B/P (MAP) Pulse Ox O2 Delivery O2 Flow Rate FiO2 12/05/18 10:24 143/61 (88) 12/05/18 10:00 83 17 89 Nasal Cannula 3.0 12/05/18 07:00 98.0 98.0 Comments General: Alert, No acute distress HEENT: Other (nc at perrl nose clear orally intubated neck no lad no thyromegaly) Lungs: Other (decrease bs) Cardiovascular: S1, S2 Abdomen: Soft, Non-tender, Other (no mass) Neuro Exam: Alert Extremities: Other (1+edema/ stasis) Skin: Warm Labs Laboratory Tests Test 12/03/18 12:20 12/03/18 12:27 12/03/18 14:15 12/03/18 18:27 O2 Saturation 98 % (92-99) Arterial Blood pH 7.39 (7.35-7.45) Arterial Blood pCO2 at Patient Temp 62 mmHg (35-46) Arterial Blood pO2 at Patient Temp 106 mmHg (65-108) Arterial Blood HCO3 37 mmol/L (21-28) Arterial Blood Base Excess 11 mmol/L (-3-3) FiO2 40 Glucose (Fingerstick) 114 mg/dL (70-99) 110 mg/dL (70-99) Prothrombin Time 18.3 SEC (11.7-14.0) Prothromb Time International Ratio 1.6 (0.8-1.1) Test 12/03/18 21:25 12/04/18 06:00 12/04/18 12:25 12/04/18 17:25 Glucose (Fingerstick) 136 mg/dL (70-99) 146 mg/dL (70-99) 167 mg/dL (70-99) White Blood Count 5.7 x10^3/uL (4.0-11.0) Red Blood Count 3.15 x10^6/uL (3.50-5.40) Hemoglobin 8.0 g/dL (12.0-15.5) Hematocrit 25.1 % (36.0-47.0) Mean Corpuscular Volume 80 fL (79-100) Mean Corpuscular Hemoglobin 25 pg (25-35) Mean Corpuscular Hemoglobin Concent 32 g/dL (31-37) Red Cell Distribution Width 22.2 % (11.5-14.5) Platelet Count 170 x10^3/uL (140-400) Neutrophils (%) (Auto) 84 % (31-73) Lymphocytes (%) (Auto) 5 % (24-48) Monocytes (%) (Auto) 10 % (0-9) Eosinophils (%) (Auto) 1 % (0-3) Basophils (%) (Auto) 0 % (0-3) Neutrophils # (Auto) 4.8 x10^3/uL (1.8-7.7) Lymphocytes # (Auto) 0.3 x10^3/uL (1.0-4.8) Monocytes # (Auto) 0.6 x10^3/uL (0.0-1.1) Eosinophils # (Auto) 0.1 x10^3/uL (0.0-0.7) Basophils # (Auto) 0.0 x10^3/uL (0.0-0.2) Sodium Level 150 mmol/L (136-145) Potassium Level 3.0 mmol/L (3.5-5.1) Chloride Level 107 mmol/L (98-107) Carbon Dioxide Level 36 mmol/L (21-32) Anion Gap 7 (6-14) Blood Urea Nitrogen 23 mg/dL (7-20) Creatinine 1.3 mg/dL (0.6-1.0) Estimated GFR (Cockcroft-Gault) 40.5 BUN/Creatinine Ratio 18 (6-20) Glucose Level 139 mg/dL (70-99) Calcium Level 8.3 mg/dL (8.5-10.1) Total Bilirubin 0.6 mg/dL (0.2-1.0) Aspartate Amino Transf (AST/SGOT) 187 U/L (15-37) Alanine Aminotransferase (ALT/SGPT) 767 U/L (14-59) Alkaline Phosphatase 115 U/L (46-116) Total Protein 6.2 g/dL (6.4-8.2) Albumin 1.9 g/dL (3.4-5.0) Albumin/Globulin Ratio 0.4 (1.0-1.7) Test 12/04/18 21:39 12/05/18 05:20 12/05/18 08:56 Glucose (Fingerstick) 170 mg/dL (70-99) 75 mg/dL (70-99) White Blood Count 4.6 x10^3/uL (4.0-11.0) Red Blood Count 3.12 x10^6/uL (3.50-5.40) Hemoglobin 7.7 g/dL (12.0-15.5) Hematocrit 24.8 % (36.0-47.0) Mean Corpuscular Volume 79 fL (79-100) Mean Corpuscular Hemoglobin 25 pg (25-35) Mean Corpuscular Hemoglobin Concent 31 g/dL (31-37) Red Cell Distribution Width 22.0 % (11.5-14.5) Platelet Count 181 x10^3/uL (140-400) Neutrophils (%) (Auto) 70 % (31-73) Lymphocytes (%) (Auto) 10 % (24-48) Monocytes (%) (Auto) 17 % (0-9) Eosinophils (%) (Auto) 3 % (0-3) Basophils (%) (Auto) 1 % (0-3) Neutrophils # (Auto) 3.2 x10^3/uL (1.8-7.7) Lymphocytes # (Auto) 0.5 x10^3/uL (1.0-4.8) Monocytes # (Auto) 0.8 x10^3/uL (0.0-1.1) Eosinophils # (Auto) 0.1 x10^3/uL (0.0-0.7) Basophils # (Auto) 0.0 x10^3/uL (0.0-0.2) Sodium Level 149 mmol/L (136-145) Potassium Level 3.0 mmol/L (3.5-5.1) Chloride Level 108 mmol/L (98-107) Carbon Dioxide Level 37 mmol/L (21-32) Anion Gap 4 (6-14) Blood Urea Nitrogen 20 mg/dL (7-20) Creatinine 1.1 mg/dL (0.6-1.0) Estimated GFR (Cockcroft-Gault) 49.1 BUN/Creatinine Ratio 18 (6-20) Glucose Level 95 mg/dL (70-99) Calcium Level 8.8 mg/dL (8.5-10.1) Total Bilirubin 0.4 mg/dL (0.2-1.0) Aspartate Amino Transf (AST/SGOT) 69 U/L (15-37) Alanine Aminotransferase (ALT/SGPT) 491 U/L (14-59) Alkaline Phosphatase 101 U/L (46-116) Creatine Kinase 59 U/L (26-192) Total Protein 6.0 g/dL (6.4-8.2) Albumin 1.9 g/dL (3.4-5.0) Albumin/Globulin Ratio 0.5 (1.0-1.7) Laboratory Tests Test 12/04/18 12:25 12/04/18 17:25 12/04/18 21:39 12/05/18 05:20 Glucose (Fingerstick) 146 mg/dL (70-99) 167 mg/dL (70-99) 170 mg/dL (70-99) White Blood Count 4.6 x10^3/uL (4.0-11.0) Red Blood Count 3.12 x10^6/uL (3.50-5.40) Hemoglobin 7.7 g/dL (12.0-15.5) Hematocrit 24.8 % (36.0-47.0) Mean Corpuscular Volume 79 fL (79-100) Mean Corpuscular Hemoglobin 25 pg (25-35) Mean Corpuscular Hemoglobin Concent 31 g/dL (31-37) Red Cell Distribution Width 22.0 % (11.5-14.5) Platelet Count 181 x10^3/uL (140-400) Neutrophils (%) (Auto) 70 % (31-73) Lymphocytes (%) (Auto) 10 % (24-48) Monocytes (%) (Auto) 17 % (0-9) Eosinophils (%) (Auto) 3 % (0-3) Basophils (%) (Auto) 1 % (0-3) Neutrophils # (Auto) 3.2 x10^3/uL (1.8-7.7) Lymphocytes # (Auto) 0.5 x10^3/uL (1.0-4.8) Monocytes # (Auto) 0.8 x10^3/uL (0.0-1.1) Eosinophils # (Auto) 0.1 x10^3/uL (0.0-0.7) Basophils # (Auto) 0.0 x10^3/uL (0.0-0.2) Sodium Level 149 mmol/L (136-145) Potassium Level 3.0 mmol/L (3.5-5.1) Chloride Level 108 mmol/L (98-107) Carbon Dioxide Level 37 mmol/L (21-32) Anion Gap 4 (6-14) Blood Urea Nitrogen 20 mg/dL (7-20) Creatinine 1.1 mg/dL (0.6-1.0) Estimated GFR (Cockcroft-Gault) 49.1 BUN/Creatinine Ratio 18 (6-20) Glucose Level 95 mg/dL (70-99) Calcium Level 8.8 mg/dL (8.5-10.1) Total Bilirubin 0.4 mg/dL (0.2-1.0) Aspartate Amino Transf (AST/SGOT) 69 U/L (15-37) Alanine Aminotransferase (ALT/SGPT) 491 U/L (14-59) Alkaline Phosphatase 101 U/L (46-116) Creatine Kinase 59 U/L (26-192) Total Protein 6.0 g/dL (6.4-8.2) Albumin 1.9 g/dL (3.4-5.0) Albumin/Globulin Ratio 0.5 (1.0-1.7) Test 12/05/18 08:56 Glucose (Fingerstick) 75 mg/dL (70-99) Medications Active Scripts Medications Dose Route/Sig Max Daily Dose Days Date Category Dose Instructions Humalog (Insulin Lispro) 100 Unit/1 Ml Insuln.pen 10 Units SQ TIDWMEALS MDD 1 14 02/02/18 Rx Lantus Solostar (Insulin Glargine,Hum.rec.anlog) 100 Unit/1 Ml Insuln.pen 30 Units SQ QHS 14 02/02/18 Rx Gabapentin (Gabapentin) 100 Mg Capsule 200 Mg PO TID MDD 1 14 02/02/18 Rx Hydrocodone-Apap 5-325 (Hydrocodone Bit/Acetaminophen) 1 Each Tablet 1 Tab PO PRN Q6HRS PRN 02/02/18 Rx Potassium Chloride 10 Meq Tablet.er 10 Meq PO DAILY 01/26/18 Reported Furosemide 40 Mg Tablet 40 Mg PO BID 01/26/18 Reported Fosamax (Alendronate Sodium) 70 Mg Tablet 1 Tab PO WEEKLY 01/26/18 Reported wednesday Vitamin D2 (Ergocalciferol (Vitamin D2)) 50,000 Unit Capsule 1 Cap PO TWICE WEEKLY 01/26/18 Reported WED AND sAT Amlodipine Besylate 10 Mg Tablet 10 Mg PO DAILY MDD 1 01/24/18 Rx Clonidine Tts-2 (Clonidine) 1 Each Patch.tdwk 1 Patch TD WEEKLY MDD 1 01/24/18 Rx Hydralazine Hcl 50 Mg Tablet 50 Mg PO TID MDD 1 01/24/18 Rx Metoprolol Succinate ( Xl ) (Metoprolol Succinate) 25 Mg Tab.er.24h 1 Tab PO DAILY 12/31/17 Reported Voltaren (Diclofenac Sodium) 100 Gm Gel..gram. 1 Gm TP QID 12/31/17 Reported Ferrous Sulfate 325 Mg Tablet 325 Mg PO DAILY 10/24/17 Reported Colestipol Hcl 1 Gm Tablet 1 Gm PO DAILY 10/24/17 Reported Oxybutynin Chloride 5 Mg Tablet 5 Mg PO TID 03/17/17 Reported Lipitor (Atorvastatin Calcium) 80 Mg Tablet 80 Mg PO HS 03/17/17 Reported Levothyroxine Sodium 150 Mcg Tablet 1 Tab PO DAILY 03/17/17 Reported Isosorbide Mononitrate Er (Isosorbide Mononitrate) 30 Mg Tab.er.24h 1 Tab PO DAILY 03/17/17 Reported Lantus (Insulin Glargine,Hum.rec.anlog) 100 Unit/1 Ml Vial 52 Unit SQ BID 05/14/15 Reported MAY INCREASE FOR BLOOD SUGARS GREATER THAN 200 FASTING Duoneb 0.5-3(2.5) Mg/3 Ml (Albuterol/Ipratropium) 3 Ml Ampul.neb 3 Ml IH QID 05/14/15 Reported Ventolin Hfa Inhaler (Albuterol Sulfate) 18 Gm Hfa.aer.ad 2 Puff INH Q4HRS PRN 05/14/15 Reported Venlafaxine Hcl Er (Venlafaxine Hcl) 150 Mg Cap.er.24h 150 Mg PO DAILY 05/14/15 Reported Novolog Flexpen (Insulin Aspart) 100 Unit/1 Ml Insuln.pen 30 Unit SQ TIDAC 05/14/15 Reported Pantoprazole Sodium (Pantoprazole Sodium) 40 Mg Tablet.dr 40 Mg PO DAILY 05/14/15 Reported Trazodone Hcl 100 Mg Tablet 200 Mg PO HS 05/14/15 Reported Comments cxr 12/04 reviewed b ll infilt atelectasis effusion CT CHEST Moderate to large bilateral pleural effusions with pulmonary interstitial infiltrates and scattered bibasilar atelectatic consolidation. Mild pulmonary vascular congestion. Circumferential wall thickening of the cecum and ascending colon. Correlate for underlying colitis including ischemic etiology. No significant surrounding stranding noted however. No abscess. Advanced atherosclerotic calcific involvement of the abdominal aorta and its branches. Stenosis of the distal abdominal aorta. Urinary bladder wall thickening which may represent neurogenic bladder or chronic cystitis. Impression . 1. Acute hypoxic respiratory failure secondary to acute congestive heart failure, sepsis. resolved. extubated 2. Abnormal chest x-ray c/w CHF., effusions improved 3. The patient with history of atrial fibrillation, on amiodarone and Eliquis. Likely diastolic HF. She had prior thoracentesis done at [facility] recently. 4. Encephalopathy, likely related to cardiac pump failure. CT head negative. resolved 5. Hyperglycemia,controlled 6. Abnormal renal function could be chronic kidney disease. 7. sepsis, gnr, co neg, abx per ID 8. Severe protein-calorie malnutrition. Plan . 1. 02 titration, 2. IS, speech eval 3. Diuresis 4. abx per ID 5. echocardiogram with normal EF 6. Follow Cardiology recommendation. 7. antibiotic per ID 8. Follow renal function 9. DVT and stress ulcer prophylaxis. 10. Discussed with product transfer pumper to [facility] ORQUIDEA LYNN MD Dec 05, 2018 10:39
--- NOTE | 2018-12-05 10:45 | PDOC ---
MICHEAL DORAN STOCK TRANSFER CLERK 12/05/18 1045: CARDIO Progress Notes Date and Time Date of Service 12/05/18 Time of Evaluation 1015 Subjective Subjective: No Chest Pain, No shortness of breath, Other (wanting to drink/eat ) Vitals Vitals Vital Signs Date Time Temp Pulse Resp B/P (MAP) Pulse Ox O2 Delivery O2 Flow Rate FiO2 12/05/18 10:36 168/67 (100) 12/05/18 10:00 83 17 89 Nasal Cannula 3.0 12/05/18 07:00 98.0 98.0 Weight Weight [ ] Input and Output Intake and Output Intake and Output 12/05/18 07:00 Intake Total 565 ml Output Total 1505 ml Balance -940 ml Intake Oral 0 ml Other 565 ml Output Urine Total 1505 ml Laboratory Labs Laboratory Tests Test 12/04/18 12:25 12/04/18 17:25 12/04/18 21:39 12/05/18 05:20 Glucose (Fingerstick) 146 mg/dL (70-99) 167 mg/dL (70-99) 170 mg/dL (70-99) White Blood Count 4.6 x10^3/uL (4.0-11.0) Red Blood Count 3.12 x10^6/uL (3.50-5.40) Hemoglobin 7.7 g/dL (12.0-15.5) Hematocrit 24.8 % (36.0-47.0) Mean Corpuscular Volume 79 fL (79-100) Mean Corpuscular Hemoglobin 25 pg (25-35) Mean Corpuscular Hemoglobin Concent 31 g/dL (31-37) Red Cell Distribution Width 22.0 % (11.5-14.5) Platelet Count 181 x10^3/uL (140-400) Neutrophils (%) (Auto) 70 % (31-73) Lymphocytes (%) (Auto) 10 % (24-48) Monocytes (%) (Auto) 17 % (0-9) Eosinophils (%) (Auto) 3 % (0-3) Basophils (%) (Auto) 1 % (0-3) Neutrophils # (Auto) 3.2 x10^3/uL (1.8-7.7) Lymphocytes # (Auto) 0.5 x10^3/uL (1.0-4.8) Monocytes # (Auto) 0.8 x10^3/uL (0.0-1.1) Eosinophils # (Auto) 0.1 x10^3/uL (0.0-0.7) Basophils # (Auto) 0.0 x10^3/uL (0.0-0.2) Sodium Level 149 mmol/L (136-145) Potassium Level 3.0 mmol/L (3.5-5.1) Chloride Level 108 mmol/L (98-107) Carbon Dioxide Level 37 mmol/L (21-32) Anion Gap 4 (6-14) Blood Urea Nitrogen 20 mg/dL (7-20) Creatinine 1.1 mg/dL (0.6-1.0) Estimated GFR (Cockcroft-Gault) 49.1 BUN/Creatinine Ratio 18 (6-20) Glucose Level 95 mg/dL (70-99) Calcium Level 8.8 mg/dL (8.5-10.1) Total Bilirubin 0.4 mg/dL (0.2-1.0) Aspartate Amino Transf (AST/SGOT) 69 U/L (15-37) Alanine Aminotransferase (ALT/SGPT) 491 U/L (14-59) Alkaline Phosphatase 101 U/L (46-116) Creatine Kinase 59 U/L (26-192) Total Protein 6.0 g/dL (6.4-8.2) Albumin 1.9 g/dL (3.4-5.0) Albumin/Globulin Ratio 0.5 (1.0-1.7) Test 12/05/18 08:56 Glucose (Fingerstick) 75 mg/dL (70-99) Microbiology Micro Microbiology 11/30/18 Urine Culture - Final, Complete 11/30/18 Urine Culture Result 1 (DEEPTI) - Final, Complete 11/30/18 Antimicrobic Susceptibility - Final, Complete 11/30/18 Blood Culture - Preliminary, Resulted 11/30/18 Blood Culture Result 1 (DEEPTI) - Preliminary, Resulted 11/30/18 Blood Culture Result 2 (DEEPTI) - Preliminary, Resulted Physical Exam HEENT: Neck Supple W Full Motion Chest: Symmetric LUNGS: Other (diminished bases) Heart: S1S2, RRR Abdomen: Soft N/T Extremities: Other (trace bilateral LE edema ) Neurology: alert, oriented, follow commands, other (off sedation) Assessment Assessment 1. Acute respiratory failure with possible aspiration: extubated. pulmonary following 2. UTI sepsis: ID following 3. DKA with severe lactic acidosis 4. MANDIE; improved 5. Metabolic/hypoxic encephalopathy 6. NSTEMI: multifactorial including suspected ischemia. 2D echo showed normal LVF. 7. Hx of GI bleed: possible AVMs in colon in the past per GI 8. Hx of PAFIB; mainly SR, but bursts of AFIB RVR noted yesterday on tele. 9. CAD s/p PCI/stent LAD/RCA: cardiac cath 03/2017 showed patent stents 10. DM2: per IM 11. Transaminitis; improved 12. Hypertension; on nitro gtt 13. H/o breast CA Recommendations Add Metoprolol IV q6 hr while NPO Hydralazine IV PRN Resume home antiHTN therapy and Amiodarone when able to to PO. Lovenox therapy ST to evaluate today. Ischemic workup could be considered once active issues resolve RAND GOLDEN MD 12/05/18 2014: CARDIO Progress Notes Assessment Assessment Patient seen and examined, Agree with ELECTRONIC COMPONENT PROCESSOR's assessment and plan. Continue current treatment for sepsis Plan for ischemic eval for NSTEMI with possibly cardiac cath once active issues resolve MICHEAL DORAN APRN Dec 05, 2018 10:45 RAND GOLDEN MD Dec 05, 2018 20:14
--- NOTE | 2018-12-05 10:47 | NUR ---
Pt admitted with sepsis. Per RN, pt with significant functional limitations and would benefit from PT/OT assessment to ensure safe discharge disposition. Please write PT/OT eval and treat orders if you agree Addendum: 12/05/18 at 1048 by KAROLINA QUIÑONES PT Amended: Links added.
--- NOTE | 2018-12-05 11:41 | NUR ---
SS following up with discharge planning. Pt declined for [facility] transfer. Pt is currently on nasal cannula oxygen. PT/OT ordered. SS awaiting PT/OT evaluations and recommendations and will proceed accordingly with discharge planning.
[2018-12-05] MEDS: METOPROLOL TARTRATE 5 MG/5 ML VIAL. IVP SCH ×2 (11:42→18:07)
[2018-12-05] MEDS: POTASSIUM CHL 20MEQ PREMIX 50 ML IV SCH ×2 (11:43→12:51)
[2018-12-05] MEDS: IV DEXTROSE 5% 1,000 ML IV SCH (11:48)
--- NOTE | 2018-12-05 12:20 | PDOC ---
[facility] PROGRESS NOTE Chief Complaint Chief Complaint Respiratory failure Renal Failure Sepsis UTI History of Present Illness History of Present Illness 12/05/18 Pt was seen and examined in the ICU at bedside Pt is NSR. Reported bursts of A-fib last night Pt scheduled for swallow test later in the day Pt is on D5W saline as of 12/04/18 Cadet BSNamita Charts and labs reviewed Potassium remains 3.0 BUN was 20, down from 23 Cr was 1.1, down from 1.3 12/04/18 Pt was seen and examined in the ICU sitting in chair. Extubated Pt did not pass swallow test Accompanied by family members Charts and labs reviewed Potassium was 3.0, down from 3.4 BUN was 23, down from 26 Cr was 1.3, down from 1.7 D/w RN 12/03/18 Pt was seen and examined in the ICU Pt intubated. Vent settings: (AC 12/450/40% 5 PEEP) Pt was wearing mittens Accompanied by family members Reviewed charts and labs BP was elevated at 194/77 Discussed denial of [facility] transfer. Family ok now. D/w RN 12/02/18 Pt was seen and examined in ICU Reviewed chart and labs Discussed with [facility] transfer RN Pt intubated Vent Settings (AC/12/450/40% 5.0 PEEP) I talked extensively with her daughter about her concerns . The daughter wanted to transfer the pt but we reassured her that the pt is getting the best care here in the ICU. Nephrology was in the room with us. CROW SEPULVEDA 12/01/18 Pt was seen and examined in the ICU Pt is intubated with Vent Settings: (AC/12/450/150% 5 PEEP) Echo was being performed in room during exam CROW SEPULVEDA Vitals/I&O Vitals/I&O: Vital Signs Date Time Temp Pulse Resp B/P (MAP) Pulse Ox O2 Delivery O2 Flow Rate FiO2 12/05/18 11:42 81 169/69 12/05/18 11:00 97.7 18 100 Nasal Cannula 3.0 97.7 I & O 12/04/18 12/04/18 12/05/18 15:00 23:00 07:00 Intake Total 565 ml 0 ml Output Total 685 ml 260 ml 560 ml Balance -685 ml 305 ml -560 ml Physical Exam Physical Exam: GENERAL: Propped up in bed, awake, calm, NAD HEENT: Pupils equal, oral cavity pink, dry NECK: Supple LUNGS: clear anteriorly HEART: S1, S2 ABDOMEN: Soft, no guarding : Cadet EXTREMITIES: Chronic venous insufficiency changes present. 1+ edema RLE. SKIN: warm to touch. Sacrococcygeal wound. NEUROLOGIC: Awake, responds appropriately LIJ clean General: mild distress Heart: Regular rate Lungs: Other (decrease bs) Abdomen: Normal bowel sounds Extremities: No clubbing, No cyanosis, No edema, Normal pulses, No tenderness/swelling Skin: No breakdown Labs Labs: Laboratory Tests Test 12/04/18 12:25 12/04/18 17:25 12/04/18 21:39 12/05/18 05:20 Glucose (Fingerstick) 146 mg/dL (70-99) 167 mg/dL (70-99) 170 mg/dL (70-99) White Blood Count 4.6 x10^3/uL (4.0-11.0) Red Blood Count 3.12 x10^6/uL (3.50-5.40) Hemoglobin 7.7 g/dL (12.0-15.5) Hematocrit 24.8 % (36.0-47.0) Mean Corpuscular Volume 79 fL (79-100) Mean Corpuscular Hemoglobin 25 pg (25-35) Mean Corpuscular Hemoglobin Concent 31 g/dL (31-37) Red Cell Distribution Width 22.0 % (11.5-14.5) Platelet Count 181 x10^3/uL (140-400) Neutrophils (%) (Auto) 70 % (31-73) Lymphocytes (%) (Auto) 10 % (24-48) Monocytes (%) (Auto) 17 % (0-9) Eosinophils (%) (Auto) 3 % (0-3) Basophils (%) (Auto) 1 % (0-3) Neutrophils # (Auto) 3.2 x10^3/uL (1.8-7.7) Lymphocytes # (Auto) 0.5 x10^3/uL (1.0-4.8) Monocytes # (Auto) 0.8 x10^3/uL (0.0-1.1) Eosinophils # (Auto) 0.1 x10^3/uL (0.0-0.7) Basophils # (Auto) 0.0 x10^3/uL (0.0-0.2) Sodium Level 149 mmol/L (136-145) Potassium Level 3.0 mmol/L (3.5-5.1) Chloride Level 108 mmol/L (98-107) Carbon Dioxide Level 37 mmol/L (21-32) Anion Gap 4 (6-14) Blood Urea Nitrogen 20 mg/dL (7-20) Creatinine 1.1 mg/dL (0.6-1.0) Estimated GFR (Cockcroft-Gault) 49.1 BUN/Creatinine Ratio 18 (6-20) Glucose Level 95 mg/dL (70-99) Calcium Level 8.8 mg/dL (8.5-10.1) Total Bilirubin 0.4 mg/dL (0.2-1.0) Aspartate Amino Transf (AST/SGOT) 69 U/L (15-37) Alanine Aminotransferase (ALT/SGPT) 491 U/L (14-59) Alkaline Phosphatase 101 U/L (46-116) Creatine Kinase 59 U/L (26-192) Total Protein 6.0 g/dL (6.4-8.2) Albumin 1.9 g/dL (3.4-5.0) Albumin/Globulin Ratio 0.5 (1.0-1.7) Test 12/05/18 08:56 12/05/18 11:45 Glucose (Fingerstick) 75 mg/dL (70-99) 70 mg/dL (70-99) Review of Systems Review of Systems: Pt co abdominal pain Pt denies fever Assessment and Plan Assessmemt and Plan Problems Medical Problems: (1) CHF (congestive heart failure) Status: Acute (2) Renal failure Status: Acute (3) Respiratory failure Status: Acute (4) Septic shock Status: Acute (5) UTI (urinary tract infection) Status: Acute Assessment CHF Respiratory failure Renal Failure Sepsis UTI Cognitive Impairment at baseline CAD s/p PCI/stent LAD/RCA: cardiac cath 03/2017 showed patent stents. Hypothyroidism Plan PPN ICU monitoring IV zosyn Replace potassium Labs Home meds if tolerated Hope to encourage PO meds Await input from cards, nephro, pulm, ID, neuro Full code Prognosis guarded Appreciate subspecialist input Comment Review of Relevant I have reviewed the following items brooke (where applicable) has been applied. Medications: Current Medications Medications (Trade) Dose Ordered Sig/Kerry Route PRN Reason Start Time Stop Time Status Last Admin Dose Admin Diclofenac Sodium (Voltaren) 1 myrtle QID TP 12/04/18 13:00 12/05/18 09:01 Enoxaparin Sodium (Lovenox 80mg Syringe) 80 mg Q12HR SQ 12/04/18 14:00 12/05/18 09:45 Morphine Sulfate (Morphine Sulfate) 2 mg PRN Q2HR PRN IV PAIN 12/04/18 13:30 12/04/18 21:33 Diphenhydramine HCl (Benadryl) 25 mg 1X ONCE IVP 12/04/18 23:30 12/04/18 23:31 DC 12/04/18 23:43 Saliva Substitute (Biotene Moisturizing Mouth) 2 spray PRN Q15MIN PRN PO DRY MOUTH 12/04/18 23:30 12/04/18 23:44 Potassium Chloride/Water 50 ml @ 50 mls/hr Q1H IV 12/05/18 12:00 12/05/18 13:59 12/05/18 11:43 Metoprolol Tartrate (Lopressor Vial) 5 mg Q6HRS IVP 12/05/18 12:00 12/05/18 11:42 TICO EDUARDO III DO Dec 05, 2018 12:20
[2018-12-05] MEDS: traZODone 100 MG TABLET. PO SCH (20:46)
[2018-12-05] MEDS: IV DEXTROSE 5% 250 ML BAG. IV PRN (21:14)
[2018-12-05] MEDS: FAMOTIDINE 20 MG/2 ML VIAL IVP SCH (21:15)
[2018-12-06] VITALS (7 sets, daily range): BP systolic 157–175; BP diastolic 59–93
[2018-12-06] MEDS: METOPROLOL TARTRATE 5 MG/5 ML VIAL. IVP SCH ×4 (00:04→16:27)
[2018-12-06] MEDS: PIPERACILLIN/TAZOBACTAM 3.375 GM in IV NORMAL SALINE 50ML 50 ML IV SCH ×4 (00:04→16:50)
[2018-12-06] MEDS: IV DEXTROSE 5% 250 ML BAG. IV PRN ×2 (00:07→07:39)
[2018-12-06] MEDS: AMINO AC 3%/ELECTROLYTE/GLYCER 1,000 ML IV SCH ×2 (01:12→16:27)
[2018-12-06] MEDS ORDERED: DEXTROSE 50% 25 GM / 50ML DISP.SYRIN. IV ONE (04:00)
[2018-12-06] MEDS: hydrALAZINE 20 MG/ML VIAL. IVP PRN (05:30)
[2018-12-06] MEDS: LEVOTHYROXINE 150 MCG TABLET PO SCH (06:00)
[2018-12-06] MEDS: PANTOPRAZOLE 40 MG TABLET.DR. PO SCH (06:00)
[2018-12-06 06:41] LABS: ALBUMIN/GLOBULIN RATIO 0.5 (1.0-1.7); CALCIUM 9.2 mg/dL (8.5-10.1); GFR 54.8; POTASSIUM 3.6 mmol/L (3.5-5.1); TOTAL BILIRUBIN 0.4 mg/dL (0.2-1.0); TOTAL PROTEIN 6.4 g/dL (6.4-8.2)
[2018-12-06 06:47] LABS: BASO % 0 % (0-3); EOS # 0.1 x10^3/uL (0.0-0.7); EOS % 3 % (0-3); HEMOGLOBIN 8.1 g/dL (12.0-15.5); LYMPH # 0.6 x10^3/uL (1.0-4.8); LYMPH % 15 % (24-48); MEAN CORPUSCULAR HEMOGLOBIN 25 pg (25-35); MEAN CORPUSCULAR HGB CONC 31 g/dL (31-37); MEAN CORPUSCULAR VOLUME 79 fL (79-100); MONO # 0.6 x10^3/uL (0.0-1.1); MONO % 15 % (0-9); NEUT # 2.8 x10^3/uL (1.8-7.7); NEUT % 67 % (31-73); PLATELET COUNT 187 x10^3/uL (140-400); RED CELL DISTRIBUTION WIDTH 21.5 % (11.5-14.5); WHITE BLOOD COUNT 4.2 x10^3/uL (4.0-11.0)
[2018-12-06] MEDS: AMIODARONE HCL 200 MG TABLET. PO SCH (07:44)
[2018-12-06] MEDS: ASPIRIN ENTERIC COATED 81 MG TABLET.DR. PO SCH (07:44)
[2018-12-06] MEDS: INSULIN LISPRO 300 UNITS/3 ML VIAL. SQ SCH ×3 (07:44→16:51)
[2018-12-06] MEDS: FERROUS SULFATE 325 MG TABLET. PO SCH (07:45)
[2018-12-06] MEDS: CYCLOBENZAPRINE 10 MG TABLET. PO SCH (07:45)
[2018-12-06] MEDS: TAMSULOSIN 0.4 MG CAP.ER.24H. PO SCH (07:45)
[2018-12-06] MEDS: FUROSEMIDE 20 MG TABLET PO SCH (07:45)
[2018-12-06] MEDS: METOPROLOL SUCC 24HR ER 25 MG TAB.ER.24H. PO SCH (07:46)
[2018-12-06] MEDS: INSULIN GLARGINE SYRINGE. SQ SCH ×2 (07:46→21:12)
[2018-12-06] MEDS: GABAPENTIN 100 MG CAPSULE. PO SCH ×3 (07:46→20:47)
[2018-12-06] MEDS: SENNOSIDES/DOCUSATE 8.6/50MG TABLET. PO SCH ×2 (07:46→20:48)
[2018-12-06] MEDS: COLESTIPOL HCL 1 GM TABLET PO SCH (07:46)
[2018-12-06] MEDS: amLODIPine BESYLATE 10 MG TABLET PO SCH ×2 (07:46→16:26)
[2018-12-06] MEDS: IPRATRPIUM/ALBUTEROL 0.5/2.5MG 3 ML NEBU. IH SCH ×4 (08:01→19:38)
--- NOTE | 2018-12-06 08:20 | NUR ---
RN NOTE patient FSBS was 47 at 0734 gave dextrose 5 250 bag per protocol rechecked fsbs at [id number] arrington notified no new orders
[2018-12-06] MEDS: DICLOFENAC SODIUM 1% TOPICAL GEL 100GM TUBE. TP SCH ×4 (09:32→20:48)
[2018-12-06] MEDS: DAPTOmycin (GENERIC) IVPB 320 MG in IV NORMAL SALINE 50ML 50 ML IV SCH (09:33)
--- NOTE | 2018-12-06 09:33 | PDOC ---
SUBJECTIVE ROS Stable, transferred out of ICU OBJECTIVE Vital Signs Vital Signs Date Time Temp Pulse Resp B/P (MAP) Pulse Ox O2 Delivery O2 Flow Rate FiO2 12/06/18 08:02 97 Nasal Cannula 2.0 12/06/18 07:44 68 157/70 12/06/18 07:00 98.4 20 98.4 I & 0 Intake and Output 12/06/18 07:00 Intake Total 3112 ml Output Total 1160 ml Balance 1952 ml Intake Oral 100 ml IV Total 3012 ml Output Urine Total 1160 ml PHYSICAL EXAM Physical Exam GENERAL: Propped up in bed, awake, calm, NAD HEENT: OM moist NECK: Supple LUNGS: clear anteriorly HEART: S1, S2 ABDOMEN: Soft, : Cadet + EXTREMITIES: Chronic venous insufficiency changes present. 1+ edema RLE. SKIN Sacrococcygeal wound. NEUROLOGIC: Awake, responds appropriately DIAGNOSIS/ASSESSMENT Assessment & Plan MANDIE- Improved K and Bicarb stable Hypernatremia- on D 5 W Resolved Hypokalemia- replace per protocol Sepsis with MRSE, strep viridans and GNR bacteremia, 11/30 Enterococcus (vanc-S only) UTI, 11/30 Suspected aspiration pneumonia. Congestive heart failure stable On lasix, Cardiology following Hypoxic respiratory failure s/p extubation Diabetes with DKA Sacrococcygeal decubitus. Ischemic colitis vs ulcerated tumor h/o A-fib HTN- BP High Antihypertensives Optimize per cardiology Will Sign Off COMMENT/RELEVANT DATA Meds Current Medications Medications (Trade) Dose Ordered Sig/Kerry Start Time Stop Time Status Last Admin Dose Admin Acetaminophen (Tylenol) 650 mg PRN Q6HRS PRN 12/02/18 18:30 Acetaminophen/ Hydrocodone Bitart (Lortab 5/325) 1 tab PRN Q6HRS PRN 12/04/18 11:15 Albumin Human 500 ml @ As Directed STK-MED ONCE 12/01/18 10:50 12/01/18 10:50 DC Albuterol/ Ipratropium (Duoneb) 3 ml RTQID 12/04/18 12:00 12/06/18 08:01 3 ML Amino Acids/ Glycerin/ Electrolytes 1,000 ml @ 50 mls/hr Q20H 12/03/18 10:30 12/06/18 01:12 50 MLS/HR Amiodarone HCl (Cordarone) 200 mg DAILY 12/04/18 11:30 Amiodarone HCl 150 mg/Dextrose 103 ml @ 618 mls/hr 1X ONCE 12/02/18 09:45 12/02/18 09:54 DC 12/02/18 10:23 618 MLS/HR Amlodipine Besylate (Norvasc) 10 mg DAILY 12/03/18 12:30 12/03/18 12:11 10 MG Apixaban (Eliquis) 5 mg BID 12/04/18 21:00 12/04/18 13:18 DC Aspirin (Aspirin Rectal Supp) 300 mg 1X ONCE 11/30/18 16:15 11/30/18 16:20 DC 11/30/18 16:40 300 MG Aspirin (Ecotrin) 81 mg DAILY 12/04/18 11:30 Colestipol HCl (Colestid) 1 gm BID@1000,2200 12/04/18 22:00 Cyclobenzaprine HCl (Flexeril) 10 mg DAILY 12/05/18 09:00 Daptomycin 320 mg/ Sodium Chloride 50 ml @ 100 mls/hr Q24H 12/01/18 10:00 12/05/18 09:45 100 MLS/HR Dextrose (Dextrose 50%-Water Syringe) 25 gm 1X ONCE 12/06/18 04:00 12/06/18 04:01 DC 12/06/18 03:39 25 GM Diclofenac Sodium (Voltaren) 1 myrtle QID 12/04/18 13:00 12/05/18 21:14 1 MYRTLE Digoxin (Lanoxin) 500 mcg 1X ONCE 12/02/18 12:00 12/02/18 12:01 DC 12/02/18 12:21 500 MCG Diphenhydramine HCl (Benadryl) 25 mg 1X ONCE 12/04/18 23:30 12/04/18 23:31 DC 12/04/18 23:43 25 MG Enoxaparin Sodium (Lovenox 80mg Syringe) 80 mg Q12HR 12/04/18 14:00 12/05/18 21:14 80 MG Etomidate (Amidate) 20 mg STK-MED ONCE 11/30/18 11:28 11/30/18 11:29 DC Famotidine (Pepcid Vial) 20 mg QHS 12/01/18 21:00 12/05/18 21:15 20 MG Fentanyl Citrate 30 ml @ 0 mls/hr CONT PRN PRN 11/30/18 15:15 12/02/18 08:53 2.5 MLS/HR Ferrous Sulfate (Feosol) 325 mg DAILY 12/05/18 09:00 Furosemide (Lasix) 20 mg DAILY 12/05/18 09:00 Gabapentin (Neurontin) 200 mg TID 12/04/18 14:00 Heparin Sodium (Porcine) (Heparin Sodium) 5,000 unit Q8HRS 11/30/18 22:00 UNV Hydralazine HCl (Apresoline Inj) 20 mg STK-MED ONCE 12/03/18 10:01 12/03/18 10:02 DC Hydralazine HCl (Apresoline) 50 mg TID 12/03/18 14:00 12/05/18 11:04 DC Insulin Glargine (Lantus Syringe) 20 unit Q12HR 11/30/18 21:00 12/05/18 08:58 20 UNIT Insulin Human Lispro (HumaLOG) 0-9 UNITS TIDWMEALS 12/03/18 08:00 Insulin Human Regular 150 ml @ 0 mls/hr 1X ONCE 11/30/18 12:30 11/30/18 12:33 DC 11/30/18 13:41 10.7 MLS/HR Insulin Human Regular 150 unit/ Sodium Chloride 151.5 ml @ 0 mls/hr CONT PRN 11/30/18 16:00 Isosorbide Mononitrate (Imdur) 30 mg DAILY 12/03/18 12:30 12/04/18 09:29 DC 12/03/18 12:11 30 MG Levothyroxine Sodium (Synthroid) 150 mcg DAILY06 12/05/18 06:00 Magnesium Sulfate 50 ml @ 25 mls/hr 1X ONCE 12/02/18 08:15 12/02/18 10:14 DC 12/02/18 08:38 25 MLS/HR Metoprolol Succinate (Toprol Xl) 25 mg DAILY 12/03/18 12:30 12/03/18 12:10 25 MG Metoprolol Tartrate (Lopressor Vial) 5 mg Q6HRS 12/05/18 12:00 12/06/18 06:06 5 MG Midazolam HCl 100 ml @ 5 mls/hr CONT PRN 11/30/18 18:15 12/05/18 10:00 DC 12/01/18 00:19 5 MLS/HR Midazolam HCl (Versed) 2 mg 1X ONCE 11/30/18 11:45 11/30/18 11:46 DC 11/30/18 11:51 2 MG Morphine Sulfate (Morphine Sulfate) 2 mg PRN Q2HR PRN 12/04/18 13:30 12/04/18 21:33 2 MG Naloxone HCl (Narcan) 0.4 mg PRN Q2MIN PRN 11/30/18 15:15 Nicardipine HCl 50 mg/Sodium Chloride 250 ml @ 25 mls/hr CONT PRN 12/05/18 12:15 12/05/18 21:23 12.5 MLS/HR Nitroglycerin/ Dextrose 250 ml @ 1.5 mls/hr CONT PRN 12/04/18 09:30 12/04/18 13:03 1.5 MLS/HR Norepinephrine Bitartrate 250 ml @ 14.836 mls/ hr CONT PRN 12/02/18 08:15 12/02/18 08:37 4.5 MLS/HR Ondansetron HCl (Zofran) 4 mg PRN Q6HRS PRN 12/02/18 18:30 12/04/18 12:47 4 MG Oxycodone/ Acetaminophen (Percocet 5/325) 1 tab PRN Q4HRS PRN 12/03/18 02:30 12/03/18 03:10 DC Pantoprazole Sodium (Protonix) 40 mg DAILY06 12/05/18 06:00 Piperacillin Sod/ Tazobactam Sod 3.375 gm/Sodium Chloride 50 ml @ 100 mls/hr Q6HRS 11/30/18 18:00 12/06/18 06:01 100 MLS/HR Potassium Chloride/Water 50 ml @ 50 mls/hr Q1H 12/05/18 12:00 12/05/18 13:59 DC 12/05/18 12:51 50 MLS/HR Potassium Phosphate 10 mmol/ Dextrose 103.3333 ml @ 51.667 m... Q2H 12/01/18 11:30 12/01/18 17:29 DC 12/01/18 15:15 51.667 MLS/HR Propofol 100 ml @ 1.187 mls/ hr CONT PRN 12/02/18 19:30 12/05/18 10:00 DC 12/02/18 19:38 1.187 MLS/HR Saliva Substitute (Biotene Moisturizing Mouth) 2 spray PRN Q15MIN PRN 12/04/18 23:30 12/04/18 23:44 2 SPRAY Senna/Docusate Sodium (Senna Plus) 1 tab BID 11/30/18 21:00 12/02/18 20:39 1 TAB Sodium Chloride (Normal Saline Flush) 3 ml QSHIFT PRN 11/30/18 16:00 Sodium Phosphate 20 mmol/Dextrose 256.6667 ml @ 64.167 m... 1X ONCE 12/01/18 11:45 12/01/18 15:44 UNV Succinylcholine Chloride (Anectine) 200 mg STK-MED ONCE 11/30/18 11:28 11/30/18 11:29 DC Tamsulosin HCl (Flomax) 0.4 mg DAILY 12/05/18 09:00 Tramadol HCl (Ultram) 50 mg PRN Q6HRS PRN 12/04/18 11:15 Trazodone HCl (Desyrel) 200 mg HS 12/04/18 21:00 Vancomycin HCl 250 ml @ 250 mls/hr 1X ONCE 11/30/18 11:45 11/30/18 12:44 DC 11/30/18 12:01 250 MLS/HR Lab Laboratory Tests Test 12/05/18 11:45 12/05/18 18:19 12/05/18 21:04 12/05/18 21:39 Glucose (Fingerstick) 70 mg/dL (70-99) 74 mg/dL (70-99) 49 mg/dL (70-99) 94 mg/dL (70-99) Test 12/06/18 00:06 12/06/18 00:27 12/06/18 03:26 12/06/18 03:53 Glucose (Fingerstick) 52 mg/dL (70-99) 101 mg/dL (70-99) 47 mg/dL (70-99) 133 mg/dL (70-99) Test 12/06/18 06:00 12/06/18 07:34 12/06/18 08:02 12/06/18 09:23 White Blood Count 4.2 x10^3/uL (4.0-11.0) Red Blood Count 3.30 x10^6/uL (3.50-5.40) Hemoglobin 8.1 g/dL (12.0-15.5) Hematocrit 26.0 % (36.0-47.0) Mean Corpuscular Volume 79 fL (79-100) Mean Corpuscular Hemoglobin 25 pg (25-35) Mean Corpuscular Hemoglobin Concent 31 g/dL (31-37) Red Cell Distribution Width 21.5 % (11.5-14.5) Platelet Count 187 x10^3/uL (140-400) Neutrophils (%) (Auto) 67 % (31-73) Lymphocytes (%) (Auto) 15 % (24-48) Monocytes (%) (Auto) 15 % (0-9) Eosinophils (%) (Auto) 3 % (0-3) Basophils (%) (Auto) 0 % (0-3) Neutrophils # (Auto) 2.8 x10^3/uL (1.8-7.7) Lymphocytes # (Auto) 0.6 x10^3/uL (1.0-4.8) Monocytes # (Auto) 0.6 x10^3/uL (0.0-1.1) Eosinophils # (Auto) 0.1 x10^3/uL (0.0-0.7) Basophils # (Auto) 0.0 x10^3/uL (0.0-0.2) Sodium Level 145 mmol/L (136-145) Potassium Level 3.6 mmol/L (3.5-5.1) Chloride Level 105 mmol/L (98-107) Carbon Dioxide Level 35 mmol/L (21-32) Anion Gap 5 (6-14) Blood Urea Nitrogen 16 mg/dL (7-20) Creatinine 1.0 mg/dL (0.6-1.0) Estimated GFR (Cockcroft-Gault) 54.8 BUN/Creatinine Ratio 16 (6-20) Glucose Level 73 mg/dL (70-99) Calcium Level 9.2 mg/dL (8.5-10.1) Total Bilirubin 0.4 mg/dL (0.2-1.0) Aspartate Amino Transf (AST/SGOT) 46 U/L (15-37) Alanine Aminotransferase (ALT/SGPT) 343 U/L (14-59) Alkaline Phosphatase 97 U/L (46-116) Total Protein 6.4 g/dL (6.4-8.2) Albumin 2.0 g/dL (3.4-5.0) Albumin/Globulin Ratio 0.5 (1.0-1.7) Glucose (Fingerstick) 56 mg/dL (70-99) 97 mg/dL (70-99) 79 mg/dL (70-99) Results All relevant outside records, renal labs, imaging studies, telemetry/EKG's were reviewed. AMBAR HARTMAN MD Dec 06, 2018 09:33
--- NOTE | 2018-12-06 09:58 | PDOC ---
PULMONARY PROGRESS NOTES Subjective extubated,12/03, on 02, sob better, has cough, no pain, is on home o2 Vitals Vital Signs Date Time Temp Pulse Resp B/P (MAP) Pulse Ox O2 Delivery O2 Flow Rate FiO2 12/06/18 08:02 97 Nasal Cannula 2.0 12/06/18 07:44 68 157/70 12/06/18 07:00 98.4 20 98.4 Comments General: Alert, No acute distress HEENT: Other (nc at perrl nose clear orally intubated neck no lad no thyromegaly) Lungs: Other (decrease bs) Cardiovascular: S1, S2 Abdomen: Soft, Non-tender, Other (no mass) Neuro Exam: Alert Extremities: Other (1+edema/ stasis) Skin: Warm Labs Laboratory Tests Test 12/04/18 12:25 12/04/18 17:25 12/04/18 21:39 12/05/18 05:20 Glucose (Fingerstick) 146 mg/dL (70-99) 167 mg/dL (70-99) 170 mg/dL (70-99) White Blood Count 4.6 x10^3/uL (4.0-11.0) Red Blood Count 3.12 x10^6/uL (3.50-5.40) Hemoglobin 7.7 g/dL (12.0-15.5) Hematocrit 24.8 % (36.0-47.0) Mean Corpuscular Volume 79 fL (79-100) Mean Corpuscular Hemoglobin 25 pg (25-35) Mean Corpuscular Hemoglobin Concent 31 g/dL (31-37) Red Cell Distribution Width 22.0 % (11.5-14.5) Platelet Count 181 x10^3/uL (140-400) Neutrophils (%) (Auto) 70 % (31-73) Lymphocytes (%) (Auto) 10 % (24-48) Monocytes (%) (Auto) 17 % (0-9) Eosinophils (%) (Auto) 3 % (0-3) Basophils (%) (Auto) 1 % (0-3) Neutrophils # (Auto) 3.2 x10^3/uL (1.8-7.7) Lymphocytes # (Auto) 0.5 x10^3/uL (1.0-4.8) Monocytes # (Auto) 0.8 x10^3/uL (0.0-1.1) Eosinophils # (Auto) 0.1 x10^3/uL (0.0-0.7) Basophils # (Auto) 0.0 x10^3/uL (0.0-0.2) Sodium Level 149 mmol/L (136-145) Potassium Level 3.0 mmol/L (3.5-5.1) Chloride Level 108 mmol/L (98-107) Carbon Dioxide Level 37 mmol/L (21-32) Anion Gap 4 (6-14) Blood Urea Nitrogen 20 mg/dL (7-20) Creatinine 1.1 mg/dL (0.6-1.0) Estimated GFR (Cockcroft-Gault) 49.1 BUN/Creatinine Ratio 18 (6-20) Glucose Level 95 mg/dL (70-99) Calcium Level 8.8 mg/dL (8.5-10.1) Total Bilirubin 0.4 mg/dL (0.2-1.0) Aspartate Amino Transf (AST/SGOT) 69 U/L (15-37) Alanine Aminotransferase (ALT/SGPT) 491 U/L (14-59) Alkaline Phosphatase 101 U/L (46-116) Creatine Kinase 59 U/L (26-192) Total Protein 6.0 g/dL (6.4-8.2) Albumin 1.9 g/dL (3.4-5.0) Albumin/Globulin Ratio 0.5 (1.0-1.7) Test 12/05/18 08:56 12/05/18 11:45 12/05/18 18:19 12/05/18 21:04 Glucose (Fingerstick) 75 mg/dL (70-99) 70 mg/dL (70-99) 74 mg/dL (70-99) 49 mg/dL (70-99) Test 12/05/18 21:39 12/06/18 00:06 12/06/18 00:27 12/06/18 03:26 Glucose (Fingerstick) 94 mg/dL (70-99) 52 mg/dL (70-99) 101 mg/dL (70-99) 47 mg/dL (70-99) Test 12/06/18 03:53 12/06/18 06:00 12/06/18 07:34 12/06/18 08:02 Glucose (Fingerstick) 133 mg/dL (70-99) 56 mg/dL (70-99) 97 mg/dL (70-99) White Blood Count 4.2 x10^3/uL (4.0-11.0) Red Blood Count 3.30 x10^6/uL (3.50-5.40) Hemoglobin 8.1 g/dL (12.0-15.5) Hematocrit 26.0 % (36.0-47.0) Mean Corpuscular Volume 79 fL (79-100) Mean Corpuscular Hemoglobin 25 pg (25-35) Mean Corpuscular Hemoglobin Concent 31 g/dL (31-37) Red Cell Distribution Width 21.5 % (11.5-14.5) Platelet Count 187 x10^3/uL (140-400) Neutrophils (%) (Auto) 67 % (31-73) Lymphocytes (%) (Auto) 15 % (24-48) Monocytes (%) (Auto) 15 % (0-9) Eosinophils (%) (Auto) 3 % (0-3) Basophils (%) (Auto) 0 % (0-3) Neutrophils # (Auto) 2.8 x10^3/uL (1.8-7.7) Lymphocytes # (Auto) 0.6 x10^3/uL (1.0-4.8) Monocytes # (Auto) 0.6 x10^3/uL (0.0-1.1) Eosinophils # (Auto) 0.1 x10^3/uL (0.0-0.7) Basophils # (Auto) 0.0 x10^3/uL (0.0-0.2) Sodium Level 145 mmol/L (136-145) Potassium Level 3.6 mmol/L (3.5-5.1) Chloride Level 105 mmol/L (98-107) Carbon Dioxide Level 35 mmol/L (21-32) Anion Gap 5 (6-14) Blood Urea Nitrogen 16 mg/dL (7-20) Creatinine 1.0 mg/dL (0.6-1.0) Estimated GFR (Cockcroft-Gault) 54.8 BUN/Creatinine Ratio 16 (6-20) Glucose Level 73 mg/dL (70-99) Calcium Level 9.2 mg/dL (8.5-10.1) Total Bilirubin 0.4 mg/dL (0.2-1.0) Aspartate Amino Transf (AST/SGOT) 46 U/L (15-37) Alanine Aminotransferase (ALT/SGPT) 343 U/L (14-59) Alkaline Phosphatase 97 U/L (46-116) Total Protein 6.4 g/dL (6.4-8.2) Albumin 2.0 g/dL (3.4-5.0) Albumin/Globulin Ratio 0.5 (1.0-1.7) Test 12/06/18 09:23 Glucose (Fingerstick) 79 mg/dL (70-99) Laboratory Tests Test 12/05/18 11:45 12/05/18 18:19 12/05/18 21:04 12/05/18 21:39 Glucose (Fingerstick) 70 mg/dL (70-99) 74 mg/dL (70-99) 49 mg/dL (70-99) 94 mg/dL (70-99) Test 12/06/18 00:06 12/06/18 00:27 12/06/18 03:26 12/06/18 03:53 Glucose (Fingerstick) 52 mg/dL (70-99) 101 mg/dL (70-99) 47 mg/dL (70-99) 133 mg/dL (70-99) Test 12/06/18 06:00 12/06/18 07:34 12/06/18 08:02 12/06/18 09:23 White Blood Count 4.2 x10^3/uL (4.0-11.0) Red Blood Count 3.30 x10^6/uL (3.50-5.40) Hemoglobin 8.1 g/dL (12.0-15.5) Hematocrit 26.0 % (36.0-47.0) Mean Corpuscular Volume 79 fL (79-100) Mean Corpuscular Hemoglobin 25 pg (25-35) Mean Corpuscular Hemoglobin Concent 31 g/dL (31-37) Red Cell Distribution Width 21.5 % (11.5-14.5) Platelet Count 187 x10^3/uL (140-400) Neutrophils (%) (Auto) 67 % (31-73) Lymphocytes (%) (Auto) 15 % (24-48) Monocytes (%) (Auto) 15 % (0-9) Eosinophils (%) (Auto) 3 % (0-3) Basophils (%) (Auto) 0 % (0-3) Neutrophils # (Auto) 2.8 x10^3/uL (1.8-7.7) Lymphocytes # (Auto) 0.6 x10^3/uL (1.0-4.8) Monocytes # (Auto) 0.6 x10^3/uL (0.0-1.1) Eosinophils # (Auto) 0.1 x10^3/uL (0.0-0.7) Basophils # (Auto) 0.0 x10^3/uL (0.0-0.2) Sodium Level 145 mmol/L (136-145) Potassium Level 3.6 mmol/L (3.5-5.1) Chloride Level 105 mmol/L (98-107) Carbon Dioxide Level 35 mmol/L (21-32) Anion Gap 5 (6-14) Blood Urea Nitrogen 16 mg/dL (7-20) Creatinine 1.0 mg/dL (0.6-1.0) Estimated GFR (Cockcroft-Gault) 54.8 BUN/Creatinine Ratio 16 (6-20) Glucose Level 73 mg/dL (70-99) Calcium Level 9.2 mg/dL (8.5-10.1) Total Bilirubin 0.4 mg/dL (0.2-1.0) Aspartate Amino Transf (AST/SGOT) 46 U/L (15-37) Alanine Aminotransferase (ALT/SGPT) 343 U/L (14-59) Alkaline Phosphatase 97 U/L (46-116) Total Protein 6.4 g/dL (6.4-8.2) Albumin 2.0 g/dL (3.4-5.0) Albumin/Globulin Ratio 0.5 (1.0-1.7) Glucose (Fingerstick) 56 mg/dL (70-99) 97 mg/dL (70-99) 79 mg/dL (70-99) Medications Active Scripts Medications Dose Route/Sig Max Daily Dose Days Date Category Dose Instructions Humalog (Insulin Lispro) 100 Unit/1 Ml Insuln.pen 10 Units SQ TIDWMEALS MDD 1 14 02/02/18 Rx Lantus Solostar (Insulin Glargine,Hum.rec.anlog) 100 Unit/1 Ml Insuln.pen 30 Units SQ QHS 14 02/02/18 Rx Gabapentin (Gabapentin) 100 Mg Capsule 200 Mg PO TID MDD 1 14 02/02/18 Rx Hydrocodone-Apap 5-325 (Hydrocodone Bit/Acetaminophen) 1 Each Tablet 1 Tab PO PRN Q6HRS PRN 02/02/18 Rx Potassium Chloride 10 Meq Tablet.er 10 Meq PO DAILY 01/26/18 Reported Furosemide 40 Mg Tablet 40 Mg PO BID 01/26/18 Reported Fosamax (Alendronate Sodium) 70 Mg Tablet 1 Tab PO WEEKLY 01/26/18 Reported wednesday Vitamin D2 (Ergocalciferol (Vitamin D2)) 50,000 Unit Capsule 1 Cap PO TWICE WEEKLY 01/26/18 Reported WED AND wed Amlodipine Besylate 10 Mg Tablet 10 Mg PO DAILY MDD 1 01/24/18 Rx Clonidine Tts-2 (Clonidine) 1 Each Patch.tdwk 1 Patch TD WEEKLY MDD 1 01/24/18 Rx Hydralazine Hcl 50 Mg Tablet 50 Mg PO TID MDD 1 01/24/18 Rx Metoprolol Succinate ( Xl ) (Metoprolol Succinate) 25 Mg Tab.er.24h 1 Tab PO DAILY 12/31/17 Reported Voltaren (Diclofenac Sodium) 100 Gm Gel..gram. 1 Gm TP QID 12/31/17 Reported Ferrous Sulfate 325 Mg Tablet 325 Mg PO DAILY 10/24/17 Reported Colestipol Hcl 1 Gm Tablet 1 Gm PO DAILY 10/24/17 Reported Oxybutynin Chloride 5 Mg Tablet 5 Mg PO TID 03/17/17 Reported Lipitor (Atorvastatin Calcium) 80 Mg Tablet 80 Mg PO HS 03/17/17 Reported Levothyroxine Sodium 150 Mcg Tablet 1 Tab PO DAILY 03/17/17 Reported Isosorbide Mononitrate Er (Isosorbide Mononitrate) 30 Mg Tab.er.24h 1 Tab PO DAILY 03/17/17 Reported Lantus (Insulin Glargine,Hum.rec.anlog) 100 Unit/1 Ml Vial 52 Unit SQ BID 05/14/15 Reported MAY INCREASE FOR BLOOD SUGARS GREATER THAN 200 FASTING Duoneb 0.5-3(2.5) Mg/3 Ml (Albuterol/Ipratropium) 3 Ml Ampul.neb 3 Ml IH QID 05/14/15 Reported Ventolin Hfa Inhaler (Albuterol Sulfate) 18 Gm Hfa.aer.ad 2 Puff INH Q4HRS PRN 05/14/15 Reported Venlafaxine Hcl Er (Venlafaxine Hcl) 150 Mg Cap.er.24h 150 Mg PO DAILY 05/14/15 Reported Novolog Flexpen (Insulin Aspart) 100 Unit/1 Ml Insuln.pen 30 Unit SQ TIDAC 05/14/15 Reported Pantoprazole Sodium (Pantoprazole Sodium) 40 Mg Tablet.dr 40 Mg PO DAILY 05/14/15 Reported Trazodone Hcl 100 Mg Tablet 200 Mg PO HS 05/14/15 Reported Comments cxr 12/04 reviewed b ll infilt atelectasis effusion CT CHEST Moderate to large bilateral pleural effusions with pulmonary interstitial infiltrates and scattered bibasilar atelectatic consolidation. Mild pulmonary vascular congestion. Circumferential wall thickening of the cecum and ascending colon. Correlate for underlying colitis including ischemic etiology. No significant surrounding stranding noted however. No abscess. Advanced atherosclerotic calcific involvement of the abdominal aorta and its branches. Stenosis of the distal abdominal aorta. Urinary bladder wall thickening which may represent neurogenic bladder or chronic cystitis. Impression . 1. Acute hypoxic respiratory failure secondary to acute congestive heart failure, sepsis. resolved. extubated 2. Abnormal chest x-ray c/w CHF., effusions improved 3. The patient with history of atrial fibrillation, on amiodarone and Eliquis. Likely diastolic HF. She had prior thoracentesis done at [facility] recently. 4. Encephalopathy, likely related to cardiac pump failure. CT head negative. resolved 5. Hyperglycemia,controlled 6. Abnormal renal function could be chronic kidney disease. 7. sepsis, gnr, co neg, abx per ID 8. Severe protein-calorie malnutrition. Plan . 1. 02 titration, 2. IS, speech eval, VS today 3. Diuresis 4. abx per ID 5. echocardiogram with normal EF 6. Follow Cardiology recommendation. 8. Follow renal function 9. DVT and stress ulcer prophylaxis. 10. Discussed with ORQUIDEA DANIELS MD Dec 06, 2018 09:58
[2018-12-06] MEDS ORDERED: BARIUM SULFATE 40% (APPLE) 148 GM PWD. PO ONE (10:00)
--- NOTE | 2018-12-06 10:15 | PDOC ---
Infectious Disease Note Subjective Subjective Transferred to floor Feeling better after getting hair washed Some ongoing nausea wo vomiting Remains NPO Denies pain/SOA/F/C ROS ROS per HPI Vital Sign Vital Signs Vital Signs Date Time Temp Pulse Resp B/P (MAP) Pulse Ox O2 Delivery O2 Flow Rate FiO2 12/06/18 08:02 97 Nasal Cannula 2.0 12/06/18 07:44 68 157/70 12/06/18 07:00 98.4 20 98.4 Physical Exam PHYSICAL EXAM GENERAL: Propped up in bed, alert, calm, NAD looks better HEENT: Pupils equal, oral cavity pink, dry NECK: Supple LUNGS: clear anteriorly HEART: S1, S2 ABDOMEN: Soft, no guarding : Cadet EXTREMITIES: Chronic venous insufficiency changes present. 1+ edema RLE. SKIN: warm to touch. Sacrococcygeal wound. NEUROLOGIC: Alert, responds appropriately [facility]J clean Labs Lab Laboratory Tests Test 12/05/18 11:45 12/05/18 18:19 12/05/18 21:04 12/05/18 21:39 Glucose (Fingerstick) 70 mg/dL (70-99) 74 mg/dL (70-99) 49 mg/dL (70-99) 94 mg/dL (70-99) Test 12/06/18 00:06 12/06/18 00:27 12/06/18 03:26 12/06/18 03:53 Glucose (Fingerstick) 52 mg/dL (70-99) 101 mg/dL (70-99) 47 mg/dL (70-99) 133 mg/dL (70-99) Test 12/06/18 06:00 12/06/18 07:34 12/06/18 08:02 12/06/18 09:23 White Blood Count 4.2 x10^3/uL (4.0-11.0) Red Blood Count 3.30 x10^6/uL (3.50-5.40) Hemoglobin 8.1 g/dL (12.0-15.5) Hematocrit 26.0 % (36.0-47.0) Mean Corpuscular Volume 79 fL (79-100) Mean Corpuscular Hemoglobin 25 pg (25-35) Mean Corpuscular Hemoglobin Concent 31 g/dL (31-37) Red Cell Distribution Width 21.5 % (11.5-14.5) Platelet Count 187 x10^3/uL (140-400) Neutrophils (%) (Auto) 67 % (31-73) Lymphocytes (%) (Auto) 15 % (24-48) Monocytes (%) (Auto) 15 % (0-9) Eosinophils (%) (Auto) 3 % (0-3) Basophils (%) (Auto) 0 % (0-3) Neutrophils # (Auto) 2.8 x10^3/uL (1.8-7.7) Lymphocytes # (Auto) 0.6 x10^3/uL (1.0-4.8) Monocytes # (Auto) 0.6 x10^3/uL (0.0-1.1) Eosinophils # (Auto) 0.1 x10^3/uL (0.0-0.7) Basophils # (Auto) 0.0 x10^3/uL (0.0-0.2) Sodium Level 145 mmol/L (136-145) Potassium Level 3.6 mmol/L (3.5-5.1) Chloride Level 105 mmol/L (98-107) Carbon Dioxide Level 35 mmol/L (21-32) Anion Gap 5 (6-14) Blood Urea Nitrogen 16 mg/dL (7-20) Creatinine 1.0 mg/dL (0.6-1.0) Estimated GFR (Cockcroft-Gault) 54.8 BUN/Creatinine Ratio 16 (6-20) Glucose Level 73 mg/dL (70-99) Calcium Level 9.2 mg/dL (8.5-10.1) Total Bilirubin 0.4 mg/dL (0.2-1.0) Aspartate Amino Transf (AST/SGOT) 46 U/L (15-37) Alanine Aminotransferase (ALT/SGPT) 343 U/L (14-59) Alkaline Phosphatase 97 U/L (46-116) Total Protein 6.4 g/dL (6.4-8.2) Albumin 2.0 g/dL (3.4-5.0) Albumin/Globulin Ratio 0.5 (1.0-1.7) Glucose (Fingerstick) 56 mg/dL (70-99) 97 mg/dL (70-99) 79 mg/dL (70-99) Micro 11/30. BLOOD CULTURE Final AMENDED REPORT: 4 OF 4 BOTTLES ARE NOW POSITIVE FOR GRAM POSITIVE COCCI IN CLUSTERS. (1 IN 4 FOR GRAM NEGATIVE RODS). BLD CULT RESULT 1 Preliminary Coagulase negative Staphylococcus species. MICS are expressed in micrograms per mL Antibiotic RSLT#1 Ciprofloxacin R>=8 Clindamycin S<=0.25 Erythromycin S<=0.25 Gentamicin S<=0.5 Levofloxacin R>=8 Linezolid S =1 Nitrofurantoin S<=16 Oxacillin R>=4 Penicillin R>=0.5 Quinupristin/Dalfopristin S<=0.25 Rifampin S<=0.5 Tetracycline S<=1 Trimethoprim/Sulfa R =160 Vancomycin S =1 BLD CULT RESULT 1 Final Gram negative rods Escherichia coli Recovered from anaerobic bottle only. BLD CULT RESULT 2 Final Viridans streptococcus group Antibiotic RSLT#1 RSLT#2 RSLT#3 Amoxicillin/Clavulanic Acid S =4 Ampicillin I =16 Cefepime S<=0.12 Ceftriaxone S<=0.25 R>=2.0 Cefuroxime I =16 Chloramphenicol I =8.0 Ciprofloxacin S<=0.25 Clindamycin S<=0.06 Ertapenem S<=0.12 Erythromycin R>=0.5 Gentamicin S<=1 Imipenem S<=0.25 Levofloxacin S<=0.12 Meropenem S<=0.25 Nitrofurantoin I =64 Penicillin R>=4.0 Piperacillin/Tazobactam S<=4 Tetracycline S =2 Tobramycin S<=1 Trimethoprim/Sulfa S<=20 Vancomycin S =0.5 11/30. URINE CULTURE RES 1 Final Streptococcus species Enterococcus faecium MICS are expressed in micrograms per mL Antibiotic RSLT#1 Ciprofloxacin R>=8 Levofloxacin R>=8 Nitrofurantoin I =64 Penicillin R>=64 Tetracycline R>=16 Vancomycin S<=0.5 Objective Assessment Sepsis with MRSE, strep viridans and E. coli bacteremia, 11/30 Enterococcus (vanc-S only) UTI, 11/30 Lactic acidosis Suspected aspiration pneumonia. Congestive heart failure. Troponin leak. Hypoxic respiratory failure s/p extubation Diabetes. Sacrococcygeal decubitus. Ischemic colitis vs ulcerated tumor h/o A-fib, on amiodarone Plan Plan of Care cont Dapto and Zosyn taper soon Monitor abx toxicities/side effects. CK 59 PT/OT Gi eval D/w family Attending Co-Sign Attending Co-Sign The patient was seen and interviewed as well as examined at the bedside. The chart was reviewed. The case was discussed. Agree with the plan of care. GUY ROLDAN APRN Dec 06, 2018 10:15 GEO WILL MD Dec 06, 2018 16:31
--- NOTE | 2018-12-06 10:46 | RAD ---
CHEST AP ONLY History: Respiratory distress. Comparison: December 05, 2018 Findings: Decreased diffuse interstitial thickening. Small bilateral pleural effusions, unchanged. Unchanged left IJ central line. Unchanged heart size. Right midlung linear atelectasis. Impression: 1. Decreased diffuse interstitial thickening. 2. Small bilateral pleural effusions, unchanged. Electronically signed by: Juan Luis Jett DO (12/06/2018 10:43 AM) [id number]
--- NOTE | 2018-12-06 11:09 | PDOC ---
SURYA BABCOCK BARREL CHARRER 12/06/18 1109: CARDIO Progress Notes Date and Time Date of Service 12/06/2018 Time of Evaluation 1020 Subjective Subjective: No Chest Pain, No shortness of breath, No Palpitations Vitals Vitals Vital Signs Date Time Temp Pulse Resp B/P (MAP) Pulse Ox O2 Delivery O2 Flow Rate FiO2 12/06/18 08:02 97 Nasal Cannula 2.0 12/06/18 07:44 68 157/70 12/06/18 07:00 98.4 20 98.4 Weight Weight [ ] Input and Output Intake and Output Intake and Output 12/06/18 07:00 Intake Total 3112 ml Output Total 1160 ml Balance 1952 ml Intake Oral 100 ml IV Total 3012 ml Output Urine Total 1160 ml Laboratory Labs Laboratory Tests Test 12/05/18 11:45 12/05/18 18:19 12/05/18 21:04 12/05/18 21:39 Glucose (Fingerstick) 70 mg/dL (70-99) 74 mg/dL (70-99) 49 mg/dL (70-99) 94 mg/dL (70-99) Test 12/06/18 00:06 12/06/18 00:27 12/06/18 03:26 12/06/18 03:53 Glucose (Fingerstick) 52 mg/dL (70-99) 101 mg/dL (70-99) 47 mg/dL (70-99) 133 mg/dL (70-99) Test 12/06/18 06:00 12/06/18 07:34 12/06/18 08:02 12/06/18 09:23 White Blood Count 4.2 x10^3/uL (4.0-11.0) Red Blood Count 3.30 x10^6/uL (3.50-5.40) Hemoglobin 8.1 g/dL (12.0-15.5) Hematocrit 26.0 % (36.0-47.0) Mean Corpuscular Volume 79 fL (79-100) Mean Corpuscular Hemoglobin 25 pg (25-35) Mean Corpuscular Hemoglobin Concent 31 g/dL (31-37) Red Cell Distribution Width 21.5 % (11.5-14.5) Platelet Count 187 x10^3/uL (140-400) Neutrophils (%) (Auto) 67 % (31-73) Lymphocytes (%) (Auto) 15 % (24-48) Monocytes (%) (Auto) 15 % (0-9) Eosinophils (%) (Auto) 3 % (0-3) Basophils (%) (Auto) 0 % (0-3) Neutrophils # (Auto) 2.8 x10^3/uL (1.8-7.7) Lymphocytes # (Auto) 0.6 x10^3/uL (1.0-4.8) Monocytes # (Auto) 0.6 x10^3/uL (0.0-1.1) Eosinophils # (Auto) 0.1 x10^3/uL (0.0-0.7) Basophils # (Auto) 0.0 x10^3/uL (0.0-0.2) Sodium Level 145 mmol/L (136-145) Potassium Level 3.6 mmol/L (3.5-5.1) Chloride Level 105 mmol/L (98-107) Carbon Dioxide Level 35 mmol/L (21-32) Anion Gap 5 (6-14) Blood Urea Nitrogen 16 mg/dL (7-20) Creatinine 1.0 mg/dL (0.6-1.0) Estimated GFR (Cockcroft-Gault) 54.8 BUN/Creatinine Ratio 16 (6-20) Glucose Level 73 mg/dL (70-99) Calcium Level 9.2 mg/dL (8.5-10.1) Total Bilirubin 0.4 mg/dL (0.2-1.0) Aspartate Amino Transf (AST/SGOT) 46 U/L (15-37) Alanine Aminotransferase (ALT/SGPT) 343 U/L (14-59) Alkaline Phosphatase 97 U/L (46-116) Total Protein 6.4 g/dL (6.4-8.2) Albumin 2.0 g/dL (3.4-5.0) Albumin/Globulin Ratio 0.5 (1.0-1.7) Glucose (Fingerstick) 56 mg/dL (70-99) 97 mg/dL (70-99) 79 mg/dL (70-99) Microbiology Micro Microbiology 11/30/18 Urine Culture - Final, Complete 11/30/18 Urine Culture Result 1 (DEEPTI) - Final, Complete 11/30/18 Antimicrobic Susceptibility - Final, Complete 11/30/18 Blood Culture - Final, Complete 11/30/18 Blood Culture Result 1 (DEEPTI) - Final, Complete 11/30/18 Blood Culture Result 2 (DEEPTI) - Final, Complete 11/30/18 Antimicrobic Susceptibility - Final, Complete Physical Exam HEENT: Neck Supple W Full Motion Chest: Symmetric LUNGS: Clear to Auscultation Heart: S1S2, RRR (SR) Abdomen: Soft N/T Extremities: Other (trace bilateral LE edema ) Neurology: alert, oriented, follow commands Assessment Assessment 1. Acute respiratory failure with possible aspiration: doing better. extubated 12/03 2. Bacteremia/UTI sepsis: ID following 3. DKA with severe lactic acidosis: resolved 4. MANDIE; Cr normalized 5. Metabolic/hypoxic encephalopathy: back to baseline 6. NSTEMI: multifactorial including suspected ischemia. Nml EF 7. Hx of GI bleed: possible AVMs in colon in the past per GI 8. Hx of PAFIB; Maintaining SR, no further ectopies 9. CAD s/p PCI/stent LAD/RCA: cardiac cath 03/2017 showed patent stents 10. DM2: per IM 11. Shock liver: much improved 12. Hypertension: mildly elevated 13. H/o breast CA Recommendations 1. Continue Metoprolol IV q6 hr while NPO. Video swallow today, Will resume PO meds once verfied 2. Hydralazine IV PRN 3. Resume home antiHTN therapy and amiodarone when able to to PO. Would consider decreasing to 100 mg daily 4. Lovenox therapy for now while NPO and switched to home eliquis then PO allowed. Check INR 5. Limited TTE today and reveal EF. Ischemic workup once infection is resolved. 6. Consult SS. Discussed with pt regarding goals of care and does not want any further compressions or be placed on mechanical ventilation. RAND GOLDEN MD 12/06/18 6295: CARDIO Progress Notes Assessment Assessment Patient seen and examined. Agree with ASSOCIATE PROGRAMMER's assessment and plan. 2-D echo showed normal LV systolic function without any wall motion abnormalities. Continue current treatment for sepsis. Plan for ischemic evaluation for non-STEMI possibly with cardiac catheterization once active issues resolve. SURYA BABCOCK APRN Dec 06, 2018 11:09 RAND GOLDEN MD Dec 06, 2018 16:56
--- NOTE | 2018-12-06 11:35 | PDOC ---
[facility] PROGRESS NOTE Chief Complaint Chief Complaint Respiratory failure Renal Failure Sepsis UTI History of Present Illness History of Present Illness Pt was seen and examined in cardiovascular care Pt is NSR Pt is scheduled for swallow test Pt was receiving physical therapy during visit On nasal canula 2.0L Chart and labs reviewed Potassium was 3.6, up from 3.0 BUN was 16, down from 20 Cr was 1, down from 1.1 D/w RM 12/05/18 Pt was seen and examined in the ICU at bedside Pt is NSR. Reported bursts of A-fib last night Pt scheduled for swallow test later in the day Pt is on D5W saline as of 12/04/18 Story BSD Charts and labs reviewed Potassium remains 3.0 BUN was 20, down from 23 Cr was 1.1, down from 1.3 12/04/18 Pt was seen and examined in the ICU sitting in chair. Extubated Pt did not pass swallow test Accompanied by family members Charts and labs reviewed Potassium was 3.0, down from 3.4 BUN was 23, down from 26 Cr was 1.3, down from 1.7 D/w RN 12/03/18 Pt was seen and examined in the ICU Pt intubated. Vent settings: (AC 12/450/40% 5 PEEP) Pt was wearing mittens Accompanied by family members Reviewed charts and labs BP was elevated at 194/77 Discussed denial of [facility] transfer. Family ok now. D/w RN 12/02/18 Pt was seen and examined in ICU Reviewed chart and labs Discussed with [facility] transfer RN Pt intubated Vent Settings (AC/12/450/40% 5.0 PEEP) I talked extensively with her daughter about her concerns . The daughter wanted to transfer the pt but we reassured her that the pt is getting the best care here in the ICU. Nephrology was in the room with us. CROW RN 12/01/18 Pt was seen and examined in the ICU Pt is intubated with Vent Settings: (AC/12/450/150% 5 PEEP) Echo was being performed in room during exam CROW SEPULVEDA Vitals/I&O Vitals/I&O: Vital Signs Date Time Temp Pulse Resp B/P (MAP) Pulse Ox O2 Delivery O2 Flow Rate FiO2 12/06/18 08:02 97 Nasal Cannula 2.0 12/06/18 07:44 68 157/70 12/06/18 07:00 98.4 20 98.4 I & O 12/05/18 12/05/18 12/06/18 15:00 23:00 07:00 Intake Total 273 ml 2113 ml 726 ml Output Total 310 ml 850 ml Balance -37 ml 2113 ml -124 ml Physical Exam Physical Exam: GENERAL: Propped up in bed, alert, calm, NAD looks better HEENT: Pupils equal, oral cavity pink, dry NECK: Supple LUNGS: clear anteriorly HEART: S1, S2 ABDOMEN: Soft, no guarding : Cadet EXTREMITIES: Chronic venous insufficiency changes present. 1+ edema RLE. SKIN: warm to touch. Sacrococcygeal wound. NEUROLOGIC: Alert, responds appropriately LIJ clean General: mild distress Heart: Regular rate Lungs: Other (decrease bs) Abdomen: Normal bowel sounds Extremities: No clubbing, No cyanosis, No edema, Normal pulses, No tenderness/swelling Skin: No breakdown Labs Labs: Laboratory Tests Test 12/05/18 11:45 12/05/18 18:19 12/05/18 21:04 12/05/18 21:39 Glucose (Fingerstick) 70 mg/dL (70-99) 74 mg/dL (70-99) 49 mg/dL (70-99) 94 mg/dL (70-99) Test 12/06/18 00:06 12/06/18 00:27 12/06/18 03:26 12/06/18 03:53 Glucose (Fingerstick) 52 mg/dL (70-99) 101 mg/dL (70-99) 47 mg/dL (70-99) 133 mg/dL (70-99) Test 12/06/18 06:00 12/06/18 07:34 12/06/18 08:02 12/06/18 09:23 White Blood Count 4.2 x10^3/uL (4.0-11.0) Red Blood Count 3.30 x10^6/uL (3.50-5.40) Hemoglobin 8.1 g/dL (12.0-15.5) Hematocrit 26.0 % (36.0-47.0) Mean Corpuscular Volume 79 fL (79-100) Mean Corpuscular Hemoglobin 25 pg (25-35) Mean Corpuscular Hemoglobin Concent 31 g/dL (31-37) Red Cell Distribution Width 21.5 % (11.5-14.5) Platelet Count 187 x10^3/uL (140-400) Neutrophils (%) (Auto) 67 % (31-73) Lymphocytes (%) (Auto) 15 % (24-48) Monocytes (%) (Auto) 15 % (0-9) Eosinophils (%) (Auto) 3 % (0-3) Basophils (%) (Auto) 0 % (0-3) Neutrophils # (Auto) 2.8 x10^3/uL (1.8-7.7) Lymphocytes # (Auto) 0.6 x10^3/uL (1.0-4.8) Monocytes # (Auto) 0.6 x10^3/uL (0.0-1.1) Eosinophils # (Auto) 0.1 x10^3/uL (0.0-0.7) Basophils # (Auto) 0.0 x10^3/uL (0.0-0.2) Sodium Level 145 mmol/L (136-145) Potassium Level 3.6 mmol/L (3.5-5.1) Chloride Level 105 mmol/L (98-107) Carbon Dioxide Level 35 mmol/L (21-32) Anion Gap 5 (6-14) Blood Urea Nitrogen 16 mg/dL (7-20) Creatinine 1.0 mg/dL (0.6-1.0) Estimated GFR (Cockcroft-Gault) 54.8 BUN/Creatinine Ratio 16 (6-20) Glucose Level 73 mg/dL (70-99) Calcium Level 9.2 mg/dL (8.5-10.1) Total Bilirubin 0.4 mg/dL (0.2-1.0) Aspartate Amino Transf (AST/SGOT) 46 U/L (15-37) Alanine Aminotransferase (ALT/SGPT) 343 U/L (14-59) Alkaline Phosphatase 97 U/L (46-116) Total Protein 6.4 g/dL (6.4-8.2) Albumin 2.0 g/dL (3.4-5.0) Albumin/Globulin Ratio 0.5 (1.0-1.7) Glucose (Fingerstick) 56 mg/dL (70-99) 97 mg/dL (70-99) 79 mg/dL (70-99) Review of Systems Review of Systems: Pt denies fever Pt denies numbness and tingling Assessment and Plan Assessmemt and Plan Problems Medical Problems: (1) CHF (congestive heart failure) Status: Acute (2) Renal failure Status: Acute (3) Respiratory failure Status: Acute (4) Septic shock Status: Acute (5) UTI (urinary tract infection) Status: Acute Assessment CHF Respiratory failure Renal Failure Sepsis UTI Cognitive Impairment at baseline CAD s/p PCI/stent LAD/RCA: cardiac cath 03/2017 showed patent stents. Hypothyroidism Plan PPN Cardiac monitoring Titrate O2 IV zosyn Labs Home meds if tolerated Hope to encourage PO meds Full code Prognosis guarded Appreciate subspecialist input Comment Review of Relevant I have reviewed the following items brooke (where applicable) has been applied. Medications: Current Medications Medications (Trade) Dose Ordered Sig/Kerry Route PRN Reason Start Time Stop Time Status Last Admin Dose Admin Potassium Chloride/Water 50 ml @ 50 mls/hr Q1H IV 12/05/18 12:00 12/05/18 13:59 DC 12/05/18 12:51 Metoprolol Tartrate (Lopressor Vial) 5 mg Q6HRS IVP 12/05/18 12:00 12/06/18 06:06 Nicardipine HCl 50 mg/Sodium Chloride 250 ml @ 25 mls/hr CONT PRN IV HYPERTENSION 12/05/18 12:15 12/05/18 21:23 Dextrose (Dextrose 50%-Water Syringe) 25 gm 1X ONCE IV 12/06/18 04:00 12/06/18 04:01 DC 12/06/18 03:39 Barium Sulfate (Varibar Thin Liquid Apple) 148 gm 1X ONCE PO 12/06/18 10:00 12/06/18 10:01 DC 12/06/18 10:25 TICO EDUARDO III DO Dec 06, 2018 11:35
[2018-12-06] MEDS: IV DEXTROSE 5% 1,000 ML IV SCH (12:35)
[2018-12-06 12:55] LABS: PROTHROMBIN TIME PATIENT 15.4 SEC (11.7-14.0)
[2018-12-06] MEDS ORDERED: ALTEPLASE 1MG SYRINGE. INT CAT ONE ×2 (13:00)
--- NOTE | 2018-12-06 13:02 | RAD ---
Examination: VIDEO SWALLOW STUDY History: Cough Comparison/Correlation: None Findings: Video swallow exam was performed utilizing 2.1 minutes of fluoroscopy. No images were acquired. Thin liquid, nectar thick liquid, honey thick liquid, puree, and soft solid forms of barium were utilized for this exam. Oral motility is within normal limits. Reduced laryngeal closure is noted to efface. There is no aspiration identified. There is shallow epiglottic penetration with nectar and thin liquids. No penetration or aspiration with chin tuck technique identified Impression: Minimal epiglottic penetration with nectar and thin liquids which are not identified to be ejected at the time of swallowing although no aspiration is noted. Electronically signed by: Aleksey Mckeon MD (12/06/2018 12:59 PM) [facility]
--- NOTE | 2018-12-06 13:54 | CARD ---
MR#: [id number] Date of Study: 12/06/2018 Ordering Physician: SURYA BABCOCK, Referring Physician: SURYA BABCOCK, Tech: Marisol Rosa APPROVED REPORT EXAM: Two-dimensional and M-mode echocardiogram with Doppler and color Doppler. Other Information Quality : GoodHR: 83bpm Technically limited study due to body habitus. INDICATION COPD Cardiac Disease: CAD LV Function: Congestive Heart Failure RISK FACTORS Diabetes 2D DIMENSIONS RVDd3.2 (2.9-3.5cm)Left Atrium(2D)4.0 (1.6-4.0cm) IVSd1.3 (0.7-1.1cm)Aortic Root(2D)3.1 (2.0-3.7cm) LVDd4.6 (3.9-5.9cm)PWd1.3 (0.7-1.1cm) LVDs3.0 (2.5-4.0cm)FS (%) 33.9 % SV60.7 mlLVEF(%)62.8 (>50%) LEFT VENTRICLE The left ventricle is normal size. There is mild to moderate concentric left ventricular hypertrophy. The left ventricular systolic function is normal. The Ejection Fraction is 55-60%. There is normal L V segmental wall motion. Diastology not performed RIGHT VENTRICLE The right ventricle is normal size. There is normal right ventricular wall thickness. The right ventr icular systolic function is normal. ATRIA The left atrium size is normal. The right atrium size is normal. The interatrial septum is intact wit h no evidence for an atrial septal defect or patent foramen ovale as noted on 2-D or Doppler imaging. AORTIC VALVE The aortic valve is calcified but opens well. Doppler and color-flow analysis was not performed. MITRAL VALVE Mitral annular calcification is mild to moderate. There is no evidence of mitral valve prolapse. Dopp ler and color-flow analysis was not performed. TRICUSPID VALVE The tricuspid valve is normal in structure and function. Doppler and color-flow analysis was not perf ormed. PULMONIC VALVE The pulmonic valve is not visualized. Doppler and color-flow analysis was not performed. GREAT VESSELS The aortic root is normal in size. The IVC is normal in size and collapses >50% with inspiration. PERICARDIAL EFFUSION There is no evidence of significant pericardial effusion. Critical Notification Critical Value: No <Conclusion> Limited echo to assess LV function. The left ventricular systolic function is normal. The Ejection Fraction is 55-60%. There is normal LV segmental wall motion. There is no evidence of significant pericardial effusion. Signed by : Marcin Potts, Electronically Approved : 12/06/2018 13:53:35
--- NOTE | 2018-12-06 14:45 | PDOC2 ---
PALLIATIVE CARE Palliative Care Note Palliative Care Consult requested by Dr. Boswell to address goals of care Medical Assessment per medical record; Assessment CHF Respiratory failure Renal Failure Sepsis UTI Cognitive Impairment at baseline CAD s/p PCI/stent LAD/RCA: cardiac cath 03/2017 showed patent stents. Hypothyroidism Met with patient, Ashley daughter. Reviewed medical condition with Salome prior to our meeting. Patient was scheduled for informational visit with Deirdre Canales. Patient wants to go home rather than SNU for strengthening. Patient anxious. oxygen sat 95%. Kamala SEPULVEDA will call for medication Patient requested DNR/DNI. Outside the Hospital DNR/DNI form signed. Will await decisions from informational meeting with Deirdre. FAVIO WATSON Dec 06, 2018 14:45
--- NOTE | 2018-12-06 14:47 | NUR ---
SS following up with discharge planning. SS met with pt and pt's daughter, Ashley, to discuss discharge planning and rehabilitation. Pt reported that she "just wants to go home and ." Pt reported that she "does not want all of this." Pt reported that she does not want to go to a LTC facility. Pt reported that she just wants to go home and be comfortable. SS discussed hospice and services available with hospice with pt and pt's daughter. Pt and pt's daughter agreeable and requested informational visit. Melvin Billings from [facility] visiting with pt and pt's daughter to provide informational. SS will continue to follow for discharge planning.
[2018-12-06] MEDS: ALPRAZolam 0.25 MG TABLET PO PRN (16:24)
[2018-12-06] MEDS: traMADol 50 MG TABLET PO PRN (16:48)
[2018-12-06] MEDS: FAMOTIDINE 20 MG/2 ML VIAL IVP SCH (20:47)
[2018-12-06] MEDS: traZODone 100 MG TABLET. PO SCH (20:48)
[2018-12-06] MEDS: MORPHINE SULFATE 2 MG/ML VIAL. IV PRN (21:09)
[2018-12-07] MEDS: traMADol 50 MG TABLET PO PRN
[2018-12-07] MEDS: COLESTIPOL HCL 1 GM TABLET PO SCH (00:01)
[2018-12-07] MEDS: PIPERACILLIN/TAZOBACTAM 3.375 GM in IV NORMAL SALINE 50ML 50 ML IV SCH ×4 (00:02→17:08)
[2018-12-07] MEDS: METOPROLOL TARTRATE 5 MG/5 ML VIAL. IVP SCH ×2 (00:03→06:08)
[2018-12-07] MEDS: ALPRAZolam 0.25 MG TABLET PO PRN (00:28)
[2018-12-07 03:00] VITALS: BP 146/68
[2018-12-07] MEDS: PANTOPRAZOLE 40 MG TABLET.DR. PO SCH (06:06)
[2018-12-07] MEDS: LEVOTHYROXINE 150 MCG TABLET PO SCH (06:06)
[2018-12-07 06:34] LABS: BASO % 1 % (0-3); EOS # 0.1 x10^3/uL (0.0-0.7); EOS % 3 % (0-3); HEMATOCRIT 24.6 % (36.0-47.0); HEMOGLOBIN 7.6 g/dL (12.0-15.5); LYMPH # 0.9 x10^3/uL (1.0-4.8); LYMPH % 21 % (24-48); MEAN CORPUSCULAR HEMOGLOBIN 24 pg (25-35); MEAN CORPUSCULAR HGB CONC 31 g/dL (31-37); MEAN CORPUSCULAR VOLUME 78 fL (79-100); MONO # 0.8 x10^3/uL (0.0-1.1); MONO % 20 % (0-9); NEUT # 2.3 x10^3/uL (1.8-7.7); NEUT % 55 % (31-73); PLATELET COUNT 191 x10^3/uL (140-400); RED BLOOD COUNT 3.13 x10^6/uL (3.50-5.40); RED CELL DISTRIBUTION WIDTH 21.2 % (11.5-14.5); WHITE BLOOD COUNT 4.2 x10^3/uL (4.0-11.0)
[2018-12-07 07:01] LABS: ALBUMIN 1.9 g/dL (3.4-5.0); ALBUMIN/GLOBULIN RATIO 0.5 (1.0-1.7); CALCIUM 9.1 mg/dL (8.5-10.1); CREATININE 1.1 mg/dL (0.6-1.0); GFR 49.1; POTASSIUM 3.6 mmol/L (3.5-5.1); TOTAL BILIRUBIN 0.3 mg/dL (0.2-1.0)
[2018-12-07 07:23] VITALS: BP 159/65
[2018-12-07] MEDS: IPRATRPIUM/ALBUTEROL 0.5/2.5MG 3 ML NEBU. IH SCH ×4 (07:45→19:05)
[2018-12-07] MEDS: INSULIN LISPRO 300 UNITS/3 ML VIAL. SQ SCH ×3 (08:00→17:15)
[2018-12-07] MEDS: ASPIRIN ENTERIC COATED 81 MG TABLET.DR. PO SCH (08:24)
[2018-12-07] MEDS: LACTOBACILLUS RHAMNOSUS GG 1 CAPSULE. PO SCH ×2 (08:24→21:09)
[2018-12-07] MEDS: SENNOSIDES/DOCUSATE 8.6/50MG TABLET. PO SCH ×2 (08:25→21:08)
[2018-12-07] MEDS: CYCLOBENZAPRINE 10 MG TABLET. PO SCH (08:25)
[2018-12-07] MEDS: METOPROLOL SUCC 24HR ER 25 MG TAB.ER.24H. PO SCH (08:25)
[2018-12-07] MEDS: FUROSEMIDE 20 MG TABLET PO SCH (08:25)
[2018-12-07] MEDS: TAMSULOSIN 0.4 MG CAP.ER.24H. PO SCH (08:25)
[2018-12-07] MEDS: amLODIPine BESYLATE 10 MG TABLET PO SCH (08:26)
[2018-12-07] MEDS: GABAPENTIN 100 MG CAPSULE. PO SCH ×3 (08:26→21:09)
[2018-12-07] MEDS: AMIODARONE HCL 200 MG TABLET. PO SCH (08:26)
[2018-12-07] MEDS: FERROUS SULFATE 325 MG TABLET. PO SCH (08:27)
--- NOTE | 2018-12-07 08:59 | PDOC2 ---
GI CONSULT Reason For Consult: Abnormal CT HPI: HPI: 68 y/o female who we have seen in the past. This time admitted on 11/30 - found unresponsive at home w/ resp distress, required intubation. On CT w/o contrast on 12/01: pleural effusions, circumferential wall thickening of the cecum and ascending colon, advanced atherosclerotic calcific involvement of the abdominal aorta and its branches, stenosis of the distal abdominal aorta, and urinary bladder wall thickening. Also noted mild anasarca, fatty atrophy of pancreas, and normal liver. GI asked to see re: findings in colon. Pt reports some nausea w/o vomiting and some lower abd pain after eating along w/ discomfort related to Cadet catheter. Has lost weight. Reports h/o constipation improved w/ eating salads. Per nursing, plans for Hospice on DC. Last stooled two days ago. No bleeding. Has not requested medication for abd pain today. EGD and colonoscopy for VALERIE in [address] Aleman showed non-erosive gastritis, Schatzki's rings (dilated to 54Fr), 2x3cm adenomatous polyp in ascending colon, and hemorrhoids. Anemia thought possibly due to SB AVMs. S/p cholecystectomy. Hepatic steatosis and splenomegaly on past imaging. Meds here including IV Pepcid, PO pantoprazole, iron QD, amiodarone, ASA, Colestipol BID, Senna BID. Started diet yesterday after videoswallow and also on PPN. PMH: PMH: A Fib, VT, CAD w/ stents, HTN, COPD, HLD, DM, CKD, hypothyroidism, adenomatous colon polyp, hemorrhoids, Schatzki's ring, ?MDS/pancytopenia (past treated w/ IVIG and steroids), breast cancer appendectomy, cholecystectomy, hysterectomy, right breast lumpectomy, bone marrow biopsy FH: Family History: CAD, DM Social History: Smoke: Quit ALCOHOL: none Drugs: None ROS: GEN: Denies fevers, chills, sweats HEENT: Denies blurred vision, sore throat CV: Denies chest pain RESP: +SOA GI: Per HPI : Denies hematuria, dysuria ENDO: +weight loss NEURO: Denies confusion, dizziness MSK: +weakness SKIN: Denies jaundice, pruritus Vitals: Vitals: Vital Signs Date Time Temp Pulse Resp B/P (MAP) Pulse Ox O2 Delivery O2 Flow Rate FiO2 10/2/19 08:26 63 159/65 12/07/18 07:45 98 Nasal Cannula 2.0 12/07/18 07:23 97.6 18 97.6 Labs: Labs: Laboratory Tests Test 12/06/18 09:23 12/06/18 11:45 12/06/18 12:20 12/06/18 16:49 Glucose (Fingerstick) 79 mg/dL (70-99) 104 mg/dL (70-99) 154 mg/dL (70-99) Prothrombin Time 15.4 SEC (11.7-14.0) Prothromb Time International Ratio 1.3 (0.8-1.1) Test 12/06/18 20:18 12/07/18 04:47 12/07/18 06:20 12/07/18 07:28 Glucose (Fingerstick) 223 mg/dL (70-99) 169 mg/dL (70-99) 165 mg/dL (70-99) White Blood Count 4.2 x10^3/uL (4.0-11.0) Red Blood Count 3.13 x10^6/uL (3.50-5.40) Hemoglobin 7.6 g/dL (12.0-15.5) Hematocrit 24.6 % (36.0-47.0) Mean Corpuscular Volume 78 fL (79-100) Mean Corpuscular Hemoglobin 24 pg (25-35) Mean Corpuscular Hemoglobin Concent 31 g/dL (31-37) Red Cell Distribution Width 21.2 % (11.5-14.5) Platelet Count 191 x10^3/uL (140-400) Neutrophils (%) (Auto) 55 % (31-73) Lymphocytes (%) (Auto) 21 % (24-48) Monocytes (%) (Auto) 20 % (0-9) Eosinophils (%) (Auto) 3 % (0-3) Basophils (%) (Auto) 1 % (0-3) Neutrophils # (Auto) 2.3 x10^3/uL (1.8-7.7) Lymphocytes # (Auto) 0.9 x10^3/uL (1.0-4.8) Monocytes # (Auto) 0.8 x10^3/uL (0.0-1.1) Eosinophils # (Auto) 0.1 x10^3/uL (0.0-0.7) Basophils # (Auto) 0.0 x10^3/uL (0.0-0.2) Sodium Level 143 mmol/L (136-145) Potassium Level 3.6 mmol/L (3.5-5.1) Chloride Level 104 mmol/L (98-107) Carbon Dioxide Level 35 mmol/L (21-32) Anion Gap 4 (6-14) Blood Urea Nitrogen 13 mg/dL (7-20) Creatinine 1.1 mg/dL (0.6-1.0) Estimated GFR (Cockcroft-Gault) 49.1 BUN/Creatinine Ratio 12 (6-20) Glucose Level 166 mg/dL (70-99) Calcium Level 9.1 mg/dL (8.5-10.1) Total Bilirubin 0.3 mg/dL (0.2-1.0) Aspartate Amino Transf (AST/SGOT) 30 U/L (15-37) Alanine Aminotransferase (ALT/SGPT) 222 U/L (14-59) Alkaline Phosphatase 88 U/L (46-116) Total Protein 6.0 g/dL (6.4-8.2) Albumin 1.9 g/dL (3.4-5.0) Albumin/Globulin Ratio 0.5 (1.0-1.7) URINE CULTURE RES 1 Final Streptococcus species Enterococcus faecium BLD CULT RESULT 1 Final Comment Coagulase negative Staphylococcus species. BLD CULT RESULT 1 Final Gram negative rods Escherichia coli Recovered from anaerobic bottle only. BLD CULT RESULT 2 Final Comment Viridans streptococcus group Allergies: Coded Allergies: No Known Medication Allergies (Verified Allergy, Unknown, 10/25/17) Medications: Current Medications Medications (Trade) Dose Ordered Sig/Kerry Route PRN Reason Start Time Stop Time Status Last Admin Dose Admin Barium Sulfate (Varibar Thin Liquid Apple) 148 gm 1X ONCE PO 12/06/18 10:00 12/06/18 10:01 DC 12/06/18 10:25 Alprazolam (Xanax) 0.25 mg PRN Q8HRS PRN PO ANXIETY / AGITATION 12/06/18 16:00 12/07/18 00:28 Lactobacillus Rhamnosus (Culturelle) 1 cap BID PO 12/07/18 09:00 12/07/18 08:24 Imaging: Imaging: Head CT 11/30 IMPRESSION: 1. No acute intracranial finding. Note is made that MRI is more sensitive for acute infarction. 2. Decreased attenuation within the cerebral white matter, likely due to chronic small vessel disease. 3. Mild cerebral volume loss. CT C/A/P 12/01 Impression: Moderate to large bilateral pleural effusions with pulmonary interstitial infiltrates and scattered bibasilar atelectatic consolidation. Mild pulmonary vascular congestion. Circumferential wall thickening of the cecum and ascending colon. Correlate for underlying colitis including ischemic etiology. No significant surrounding stranding noted however. No abscess. Advanced atherosclerotic calcific involvement of the abdominal aorta and its branches. Stenosis of the distal abdominal aorta. Urinary bladder wall thickening which may represent neurogenic bladder or chronic cystitis. CXR 12/06 Impression: 1. Decreased diffuse interstitial thickening. 2. Small bilateral pleural effusions, unchanged. Videoswallow 12/06 Impression: Minimal epiglottic penetration with nectar and thin liquids which are not identified to be ejected at the time of swallowing although no aspiration is noted. RECOMMENDATIONS: Dysphagia II w/honey thick liquids; precautions as posted. Meds 1-2 at a time w/honey thick liquid via cup. NO STRAWS. Precautions sent back to w/chart and pt, diet orders entered. Echocardiogram 12/06 <Conclusion> Limited echo to assess LV function. The left ventricular systolic function is normal. The Ejection Fraction is 55-60%. There is normal LV segmental wall motion. There is no evidence of significant pericardial effusion. PE: GEN: NAD - eating breakfast HEENT: Atraumatic, PERRL LUNGS: NC 2L HEART: RRR ABD: NABS, S/ND/NT EXTREMITY: No edema SKIN: No rashes, no jaundice NEURO/PSYCH: A & O �3 A/P: A/P: Resp failure, CHF, A Fib, CAD/NSTEMI, sepsis/UTI Chronic VALERIE - ?SB AVMs, last 'scopes in 2016 unrevealing Elevated LFTs - likely shock/ischemia - improved Abnormal CT - circumferential wall thickening of the cecum and ascending colon CRC screen, h/o adenomatous colon polyp - UTD S/p cholecystectomy Hepatic steatosis, splenomegaly, fatty atrophy of pancreas - on past imaging -- Returned to see w/ Dr. Aleman - pt has decided to pursue Hospice on DC and does not wish for further evaluation w/ colonoscopy. Continue PO PPI - stop IV H2 jet since eating. H/o constipation - stop Colestipol. Continue iron. Note on amiodarone and ASA. DANN CARTER Dec 07, 2018 08:59
[2018-12-07] MEDS: DICLOFENAC SODIUM 1% TOPICAL GEL 100GM TUBE. TP SCH ×4 (09:00→21:10)
[2018-12-07] MEDS: INSULIN GLARGINE SYRINGE. SQ SCH ×3 (09:00→21:00)
--- NOTE | 2018-12-07 09:31 | PDOC ---
PULMONARY PROGRESS NOTES Subjective extubated,12/03, on 02, sob better, has cough, no pain, is on home o2 Vitals Vital Signs Date Time Temp Pulse Resp B/P (MAP) Pulse Ox O2 Delivery O2 Flow Rate FiO2 12/07/18 08:26 63 159/65 12/07/18 08:00 Nasal Cannula 2.0 12/07/18 07:45 98 12/07/18 07:23 97.6 18 97.6 Comments General: Alert, No acute distress HEENT: Other (nc at perrl nose clear orally intubated neck no lad no thyromegaly) Lungs: Other (decrease bs) Cardiovascular: S1, S2 Abdomen: Soft, Non-tender, Other (no mass) Neuro Exam: Alert Extremities: Other (1+edema/ stasis) Skin: Warm Labs Laboratory Tests Test 12/05/18 11:45 12/05/18 18:19 12/05/18 21:04 12/05/18 21:39 Glucose (Fingerstick) 70 mg/dL (70-99) 74 mg/dL (70-99) 49 mg/dL (70-99) 94 mg/dL (70-99) Test 12/06/18 00:06 12/06/18 00:27 12/06/18 03:26 12/06/18 03:53 Glucose (Fingerstick) 52 mg/dL (70-99) 101 mg/dL (70-99) 47 mg/dL (70-99) 133 mg/dL (70-99) Test 12/06/18 06:00 12/06/18 07:34 12/06/18 08:02 12/06/18 09:23 White Blood Count 4.2 x10^3/uL (4.0-11.0) Red Blood Count 3.30 x10^6/uL (3.50-5.40) Hemoglobin 8.1 g/dL (12.0-15.5) Hematocrit 26.0 % (36.0-47.0) Mean Corpuscular Volume 79 fL (79-100) Mean Corpuscular Hemoglobin 25 pg (25-35) Mean Corpuscular Hemoglobin Concent 31 g/dL (31-37) Red Cell Distribution Width 21.5 % (11.5-14.5) Platelet Count 187 x10^3/uL (140-400) Neutrophils (%) (Auto) 67 % (31-73) Lymphocytes (%) (Auto) 15 % (24-48) Monocytes (%) (Auto) 15 % (0-9) Eosinophils (%) (Auto) 3 % (0-3) Basophils (%) (Auto) 0 % (0-3) Neutrophils # (Auto) 2.8 x10^3/uL (1.8-7.7) Lymphocytes # (Auto) 0.6 x10^3/uL (1.0-4.8) Monocytes # (Auto) 0.6 x10^3/uL (0.0-1.1) Eosinophils # (Auto) 0.1 x10^3/uL (0.0-0.7) Basophils # (Auto) 0.0 x10^3/uL (0.0-0.2) Sodium Level 145 mmol/L (136-145) Potassium Level 3.6 mmol/L (3.5-5.1) Chloride Level 105 mmol/L (98-107) Carbon Dioxide Level 35 mmol/L (21-32) Anion Gap 5 (6-14) Blood Urea Nitrogen 16 mg/dL (7-20) Creatinine 1.0 mg/dL (0.6-1.0) Estimated GFR (Cockcroft-Gault) 54.8 BUN/Creatinine Ratio 16 (6-20) Glucose Level 73 mg/dL (70-99) Calcium Level 9.2 mg/dL (8.5-10.1) Total Bilirubin 0.4 mg/dL (0.2-1.0) Aspartate Amino Transf (AST/SGOT) 46 U/L (15-37) Alanine Aminotransferase (ALT/SGPT) 343 U/L (14-59) Alkaline Phosphatase 97 U/L (46-116) Total Protein 6.4 g/dL (6.4-8.2) Albumin 2.0 g/dL (3.4-5.0) Albumin/Globulin Ratio 0.5 (1.0-1.7) Glucose (Fingerstick) 56 mg/dL (70-99) 97 mg/dL (70-99) 79 mg/dL (70-99) Test 12/06/18 11:45 12/06/18 12:20 12/06/18 16:49 12/06/18 20:18 Prothrombin Time 15.4 SEC (11.7-14.0) Prothromb Time International Ratio 1.3 (0.8-1.1) Glucose (Fingerstick) 104 mg/dL (70-99) 154 mg/dL (70-99) 223 mg/dL (70-99) Test 12/07/18 04:47 12/07/18 06:20 12/07/18 07:28 Glucose (Fingerstick) 169 mg/dL (70-99) 165 mg/dL (70-99) White Blood Count 4.2 x10^3/uL (4.0-11.0) Red Blood Count 3.13 x10^6/uL (3.50-5.40) Hemoglobin 7.6 g/dL (12.0-15.5) Hematocrit 24.6 % (36.0-47.0) Mean Corpuscular Volume 78 fL (79-100) Mean Corpuscular Hemoglobin 24 pg (25-35) Mean Corpuscular Hemoglobin Concent 31 g/dL (31-37) Red Cell Distribution Width 21.2 % (11.5-14.5) Platelet Count 191 x10^3/uL (140-400) Neutrophils (%) (Auto) 55 % (31-73) Lymphocytes (%) (Auto) 21 % (24-48) Monocytes (%) (Auto) 20 % (0-9) Eosinophils (%) (Auto) 3 % (0-3) Basophils (%) (Auto) 1 % (0-3) Neutrophils # (Auto) 2.3 x10^3/uL (1.8-7.7) Lymphocytes # (Auto) 0.9 x10^3/uL (1.0-4.8) Monocytes # (Auto) 0.8 x10^3/uL (0.0-1.1) Eosinophils # (Auto) 0.1 x10^3/uL (0.0-0.7) Basophils # (Auto) 0.0 x10^3/uL (0.0-0.2) Sodium Level 143 mmol/L (136-145) Potassium Level 3.6 mmol/L (3.5-5.1) Chloride Level 104 mmol/L (98-107) Carbon Dioxide Level 35 mmol/L (21-32) Anion Gap 4 (6-14) Blood Urea Nitrogen 13 mg/dL (7-20) Creatinine 1.1 mg/dL (0.6-1.0) Estimated GFR (Cockcroft-Gault) 49.1 BUN/Creatinine Ratio 12 (6-20) Glucose Level 166 mg/dL (70-99) Calcium Level 9.1 mg/dL (8.5-10.1) Total Bilirubin 0.3 mg/dL (0.2-1.0) Aspartate Amino Transf (AST/SGOT) 30 U/L (15-37) Alanine Aminotransferase (ALT/SGPT) 222 U/L (14-59) Alkaline Phosphatase 88 U/L (46-116) Total Protein 6.0 g/dL (6.4-8.2) Albumin 1.9 g/dL (3.4-5.0) Albumin/Globulin Ratio 0.5 (1.0-1.7) Laboratory Tests Test 12/06/18 11:45 12/06/18 12:20 12/06/18 16:49 12/06/18 20:18 Prothrombin Time 15.4 SEC (11.7-14.0) Prothromb Time International Ratio 1.3 (0.8-1.1) Glucose (Fingerstick) 104 mg/dL (70-99) 154 mg/dL (70-99) 223 mg/dL (70-99) Test 12/07/18 04:47 12/07/18 06:20 12/07/18 07:28 Glucose (Fingerstick) 169 mg/dL (70-99) 165 mg/dL (70-99) White Blood Count 4.2 x10^3/uL (4.0-11.0) Red Blood Count 3.13 x10^6/uL (3.50-5.40) Hemoglobin 7.6 g/dL (12.0-15.5) Hematocrit 24.6 % (36.0-47.0) Mean Corpuscular Volume 78 fL (79-100) Mean Corpuscular Hemoglobin 24 pg (25-35) Mean Corpuscular Hemoglobin Concent 31 g/dL (31-37) Red Cell Distribution Width 21.2 % (11.5-14.5) Platelet Count 191 x10^3/uL (140-400) Neutrophils (%) (Auto) 55 % (31-73) Lymphocytes (%) (Auto) 21 % (24-48) Monocytes (%) (Auto) 20 % (0-9) Eosinophils (%) (Auto) 3 % (0-3) Basophils (%) (Auto) 1 % (0-3) Neutrophils # (Auto) 2.3 x10^3/uL (1.8-7.7) Lymphocytes # (Auto) 0.9 x10^3/uL (1.0-4.8) Monocytes # (Auto) 0.8 x10^3/uL (0.0-1.1) Eosinophils # (Auto) 0.1 x10^3/uL (0.0-0.7) Basophils # (Auto) 0.0 x10^3/uL (0.0-0.2) Sodium Level 143 mmol/L (136-145) Potassium Level 3.6 mmol/L (3.5-5.1) Chloride Level 104 mmol/L (98-107) Carbon Dioxide Level 35 mmol/L (21-32) Anion Gap 4 (6-14) Blood Urea Nitrogen 13 mg/dL (7-20) Creatinine 1.1 mg/dL (0.6-1.0) Estimated GFR (Cockcroft-Gault) 49.1 BUN/Creatinine Ratio 12 (6-20) Glucose Level 166 mg/dL (70-99) Calcium Level 9.1 mg/dL (8.5-10.1) Total Bilirubin 0.3 mg/dL (0.2-1.0) Aspartate Amino Transf (AST/SGOT) 30 U/L (15-37) Alanine Aminotransferase (ALT/SGPT) 222 U/L (14-59) Alkaline Phosphatase 88 U/L (46-116) Total Protein 6.0 g/dL (6.4-8.2) Albumin 1.9 g/dL (3.4-5.0) Albumin/Globulin Ratio 0.5 (1.0-1.7) Medications Active Scripts Medications Dose Route/Sig Max Daily Dose Days Date Category Dose Instructions Humalog (Insulin Lispro) 100 Unit/1 Ml Insuln.pen 10 Units SQ TIDWMEALS MDD 1 14 02/02/18 Rx Lantus Solostar (Insulin Glargine,Hum.rec.anlog) 100 Unit/1 Ml Insuln.pen 30 Units SQ QHS 14 02/02/18 Rx Gabapentin (Gabapentin) 100 Mg Capsule 200 Mg PO TID MDD 1 14 02/02/18 Rx Hydrocodone-Apap 5-325 (Hydrocodone Bit/Acetaminophen) 1 Each Tablet 1 Tab PO PRN Q6HRS PRN 02/02/18 Rx Potassium Chloride 10 Meq Tablet.er 10 Meq PO DAILY 01/26/18 Reported Furosemide 40 Mg Tablet 40 Mg PO BID 01/26/18 Reported Fosamax (Alendronate Sodium) 70 Mg Tablet 1 Tab PO WEEKLY 01/26/18 Reported wednesday Vitamin D2 (Ergocalciferol (Vitamin D2)) 50,000 Unit Capsule 1 Cap PO TWICE WEEKLY 01/26/18 Reported WED AND wed Amlodipine Besylate 10 Mg Tablet 10 Mg PO DAILY MDD 1 01/24/18 Rx Clonidine Tts-2 (Clonidine) 1 Each Patch.tdwk 1 Patch TD WEEKLY MDD 1 01/24/18 Rx Hydralazine Hcl 50 Mg Tablet 50 Mg PO TID MDD 1 01/24/18 Rx Metoprolol Succinate ( Xl ) (Metoprolol Succinate) 25 Mg Tab.er.24h 1 Tab PO DAILY 12/31/17 Reported Voltaren (Diclofenac Sodium) 100 Gm Gel..gram. 1 Gm TP QID 12/31/17 Reported Ferrous Sulfate 325 Mg Tablet 325 Mg PO DAILY 10/24/17 Reported Colestipol Hcl 1 Gm Tablet 1 Gm PO DAILY 10/24/17 Reported Oxybutynin Chloride 5 Mg Tablet 5 Mg PO TID 03/17/17 Reported Lipitor (Atorvastatin Calcium) 80 Mg Tablet 80 Mg PO HS 03/17/17 Reported Levothyroxine Sodium 150 Mcg Tablet 1 Tab PO DAILY 03/17/17 Reported Isosorbide Mononitrate Er (Isosorbide Mononitrate) 30 Mg Tab.er.24h 1 Tab PO DAILY 03/17/17 Reported Lantus (Insulin Glargine,Hum.rec.anlog) 100 Unit/1 Ml Vial 52 Unit SQ BID 05/14/15 Reported MAY INCREASE FOR BLOOD SUGARS GREATER THAN 200 FASTING Duoneb 0.5-3(2.5) Mg/3 Ml (Albuterol/Ipratropium) 3 Ml Ampul.neb 3 Ml IH QID 05/14/15 Reported Ventolin Hfa Inhaler (Albuterol Sulfate) 18 Gm Hfa.aer.ad 2 Puff INH Q4HRS PRN 05/14/15 Reported Venlafaxine Hcl Er (Venlafaxine Hcl) 150 Mg Cap.er.24h 150 Mg PO DAILY 05/14/15 Reported Novolog Flexpen (Insulin Aspart) 100 Unit/1 Ml Insuln.pen 30 Unit SQ TIDAC 05/14/15 Reported Pantoprazole Sodium (Pantoprazole Sodium) 40 Mg Tablet.dr 40 Mg PO DAILY 05/14/15 Reported Trazodone Hcl 100 Mg Tablet 200 Mg PO HS 05/14/15 Reported Comments cxr 12/04 reviewed b ll infilt atelectasis effusion CT CHEST Moderate to large bilateral pleural effusions with pulmonary interstitial infiltrates and scattered bibasilar atelectatic consolidation. Mild pulmonary vascular congestion. Circumferential wall thickening of the cecum and ascending colon. Correlate for underlying colitis including ischemic etiology. No significant surrounding stranding noted however. No abscess. Advanced atherosclerotic calcific involvement of the abdominal aorta and its branches. Stenosis of the distal abdominal aorta. Urinary bladder wall thickening which may represent neurogenic bladder or chronic cystitis. Impression . 1. Acute hypoxic respiratory failure secondary to acute congestive heart failure, sepsis. resolved. extubated 2. Abnormal chest x-ray c/w CHF., effusions improved 3. The patient with history of atrial fibrillation, on amiodarone and Eliquis. Likely diastolic HF. She had prior thoracentesis done at recently. 4. Encephalopathy, likely related to cardiac pump failure. CT head negative. r esolved 5. Hyperglycemia,controlled 6. Abnormal renal function could be chronic kidney disease. 7. sepsis, gnr, co neg, abx per ID 8. Severe protein-calorie malnutrition. Plan . 1. 02 titration, 2. IS, speech eval, VS per speech 3. Diuresis 4. abx per ID 5. echocardiogram with normal EF 6. Follow Cardiology recommendation. 8. Follow renal function 9. DVT and stress ulcer prophylaxis. 10. Discussed with ORQUIDEA DANIELS MD Dec 07, 2018 09:31
[2018-12-07] MEDS: DAPTOmycin (GENERIC) IVPB 320 MG in IV NORMAL SALINE 50ML 50 ML IV SCH (10:26)
--- NOTE | 2018-12-07 10:28 | PDOC ---
Infectious Disease Note Subjective Subjective c/o mild upset stomach, + cough/SOA No fever or chills Now on dysphasia II diet ROS ROS per HPI Vital Sign Vital Signs Vital Signs Date Time Temp Pulse Resp B/P (MAP) Pulse Ox O2 Delivery O2 Flow Rate FiO2 12/07/18 08:26 63 159/65 12/07/18 08:00 Nasal Cannula 2.0 12/07/18 07:45 98 12/07/18 07:23 97.6 18 97.6 Physical Exam PHYSICAL EXAM GENERAL: Propped up in bed, resting quietly, arouses to name HEENT: Pupils equal, oral cavity pink, dry NECK: Supple LUNGS: clear anteriorly HEART: S1, S2 ABDOMEN: Soft, no guarding : Cadet EXTREMITIES: Chronic venous insufficiency changes present. 1+ edema RLE. SKIN: warm to touch. Sacrococcygeal wound. NEUROLOGIC: Alert, responds appropriately LIJ clean Labs Lab Laboratory Tests Test 12/06/18 11:45 12/06/18 12:20 12/06/18 16:49 12/06/18 20:18 Prothrombin Time 15.4 SEC (11.7-14.0) Prothromb Time International Ratio 1.3 (0.8-1.1) Glucose (Fingerstick) 104 mg/dL (70-99) 154 mg/dL (70-99) 223 mg/dL (70-99) Test 12/07/18 04:47 12/07/18 06:20 12/07/18 07:28 Glucose (Fingerstick) 169 mg/dL (70-99) 165 mg/dL (70-99) White Blood Count 4.2 x10^3/uL (4.0-11.0) Red Blood Count 3.13 x10^6/uL (3.50-5.40) Hemoglobin 7.6 g/dL (12.0-15.5) Hematocrit 24.6 % (36.0-47.0) Mean Corpuscular Volume 78 fL (79-100) Mean Corpuscular Hemoglobin 24 pg (25-35) Mean Corpuscular Hemoglobin Concent 31 g/dL (31-37) Red Cell Distribution Width 21.2 % (11.5-14.5) Platelet Count 191 x10^3/uL (140-400) Neutrophils (%) (Auto) 55 % (31-73) Lymphocytes (%) (Auto) 21 % (24-48) Monocytes (%) (Auto) 20 % (0-9) Eosinophils (%) (Auto) 3 % (0-3) Basophils (%) (Auto) 1 % (0-3) Neutrophils # (Auto) 2.3 x10^3/uL (1.8-7.7) Lymphocytes # (Auto) 0.9 x10^3/uL (1.0-4.8) Monocytes # (Auto) 0.8 x10^3/uL (0.0-1.1) Eosinophils # (Auto) 0.1 x10^3/uL (0.0-0.7) Basophils # (Auto) 0.0 x10^3/uL (0.0-0.2) Sodium Level 143 mmol/L (136-145) Potassium Level 3.6 mmol/L (3.5-5.1) Chloride Level 104 mmol/L (98-107) Carbon Dioxide Level 35 mmol/L (21-32) Anion Gap 4 (6-14) Blood Urea Nitrogen 13 mg/dL (7-20) Creatinine 1.1 mg/dL (0.6-1.0) Estimated GFR (Cockcroft-Gault) 49.1 BUN/Creatinine Ratio 12 (6-20) Glucose Level 166 mg/dL (70-99) Calcium Level 9.1 mg/dL (8.5-10.1) Total Bilirubin 0.3 mg/dL (0.2-1.0) Aspartate Amino Transf (AST/SGOT) 30 U/L (15-37) Alanine Aminotransferase (ALT/SGPT) 222 U/L (14-59) Alkaline Phosphatase 88 U/L (46-116) Total Protein 6.0 g/dL (6.4-8.2) Albumin 1.9 g/dL (3.4-5.0) Albumin/Globulin Ratio 0.5 (1.0-1.7) Impression: Minimal epiglottic penetration with nectar and thin liquids which are not identified to be ejected at the time of swallowing although no aspiration is noted. Micro 11/30. BLOOD CULTURE Final AMENDED REPORT: 4 OF 4 BOTTLES ARE NOW POSITIVE FOR GRAM POSITIVE COCCI IN CLUSTERS. (1 IN 4 FOR GRAM NEGATIVE RODS). BLD CULT RESULT 1 Preliminary Coagulase negative Staphylococcus species. MICS are expressed in micrograms per mL Antibiotic RSLT#1 Ciprofloxacin R>=8 Clindamycin S<=0.25 Erythromycin S<=0.25 Gentamicin S<=0.5 Levofloxacin R>=8 Linezolid S =1 Nitrofurantoin S<=16 Oxacillin R>=4 Penicillin R>=0.5 Quinupristin/Dalfopristin S<=0.25 Rifampin S<=0.5 Tetracycline S<=1 Trimethoprim/Sulfa R =160 Vancomycin S =1 BLD CULT RESULT 1 Final Gram negative rods Escherichia coli Recovered from anaerobic bottle only. BLD CULT RESULT 2 Final Viridans streptococcus group Antibiotic RSLT#1 RSLT#2 RSLT#3 Amoxicillin/Clavulanic Acid S =4 Ampicillin I =16 Cefepime S<=0.12 Ceftriaxone S<=0.25 R>=2.0 Cefuroxime I =16 Chloramphenicol I =8.0 Ciprofloxacin S<=0.25 Clindamycin S<=0.06 Ertapenem S<=0.12 Erythromycin R>=0.5 Gentamicin S<=1 Imipenem S<=0.25 Levofloxacin S<=0.12 Meropenem S<=0.25 Nitrofurantoin I =64 Penicillin R>=4.0 Piperacillin/Tazobactam S<=4 Tetracycline S =2 Tobramycin S<=1 Trimethoprim/Sulfa S<=20 Vancomycin S =0.5 11/30. URINE CULTURE RES 1 Final Streptococcus species Enterococcus faecium MICS are expressed in micrograms per mL Antibiotic RSLT#1 Ciprofloxacin R>=8 Levofloxacin R>=8 Nitrofurantoin I =64 Penicillin R>=64 Tetracycline R>=16 Vancomycin S<=0.5 Objective Assessment Sepsis with MRSE, strep viridans and E. coli bacteremia, 11/30 Enterococcus (vanc-S only) UTI, 11/30 Lactic acidosis Suspected aspiration pneumonia. Congestive heart failure. Troponin leak. Hypoxic respiratory failure s/p extubation Diabetes. Sacrococcygeal decubitus. Ischemic colitis vs ulcerated tumor -last colonoscopy here 2015 h/o A-fib, on amiodarone Plan Plan of Care cont Dapto and Zosyn taper soon Monitor abx toxicities/side effects. CK 59 PT/OT Probiotics Patient wanting hospice at discharge D/w outreach and education social worker Will cont abx for now and see how she responds in a day or so to be sure she is not just depressed. D/w Palliative care and Dr. Yoo and outreach and education social worker Attending Co-Sign Attending Co-Sign The patient was seen and interviewed as well as examined at the bedside. The chart was reviewed. The case was discussed. Agree with the plan of care. GUY ROLDAN APRN Dec 07, 2018 10:28 GEO WILL MD Dec 07, 2018 15:15
--- NOTE | 2018-12-07 10:32 | PDOC ---
[facility] PROGRESS NOTE Chief Complaint Chief Complaint Respiratory failure Renal Failure Sepsis UTI History of Present Illness History of Present Illness 12/07/18 Pt was seen and examined in cardiovascular care at bedside Pt is NSR On nasal canula 2.0L Rivera bsd Pt reported feeling better Palliative care was consulted on 12/06. Pt is now DNR and wants to go to hospice D/w RN Chart and labs reviewed BUN was 13, down from 16 CXR 12/06 Impression: 1. Decreased diffuse interstitial thickening. 2. Small bilateral pleural effusions, unchanged. Videoswallow 12/06 Impression: Minimal epiglottic penetration with nectar and thin liquids which are not identified to be ejected at the time of swallowing although no aspiration is noted. RECOMMENDATIONS: Dysphagia II w/honey thick liquids; precautions as posted. Meds 1-2 at a time w/honey thick liquid via cup. NO STRAWS. Precautions sent back to w/chart and pt, diet orders entered. Echocardiogram 12/06 Limited echo to assess LV function. The Ejection Fraction is 55-60%. There is normal LV segmental wall motion. There is no evidence of significant pericardial effusion. 12/06/18 Pt was seen and examined in cardiovascular care Pt is NSR Pt is scheduled for swallow test Pt was receiving physical therapy during visit On nasal canula 2.0L Chart and labs reviewed Potassium was 3.6, up from 3.0 BUN was 16, down from 20 Cr was 1, down from 1.1 D/w RM 12/05/18 Pt was seen and examined in the ICU at bedside Pt is NSR. Reported bursts of A-fib last night Pt scheduled for swallow test later in the day Pt is on D5W saline as of 12/04/18 Rivera BSD Charts and labs reviewed Potassium remains 3.0 BUN was 20, down from 23 Cr was 1.1, down from 1.3 12/04/18 Pt was seen and examined in the ICU sitting in chair. Extubated Pt did not pass swallow test Accompanied by family members Charts and labs reviewed Potassium was 3.0, down from 3.4 BUN was 23, down from 26 Cr was 1.3, down from 1.7 D/w RN 12/03/18 Pt was seen and examined in the ICU Pt intubated. Vent settings: (AC 12/450/40% 5 PEEP) Pt was wearing mittens Accompanied by family members Reviewed charts and labs BP was elevated at 194/77 Discussed denial of [facility] transfer. Family ok now. D/w RN 12/02/18 Pt was seen and examined in ICU Reviewed chart and labs Discussed with [facility] transfer RN Pt intubated Vent Settings (AC/12/450/40% 5.0 PEEP) I talked extensively with her daughter about her concerns . The daughter wanted to transfer the pt but we reassured her that the pt is getting the best care here in the ICU. Nephrology was in the room with us. CROW RN 12/01/18 Pt was seen and examined in the ICU Pt is intubated with Vent Settings: (AC/12/450/150% 5 PEEP) Echo was being performed in room during exam CROW SEPULVEDA Vitals/I&O Vitals/I&O: Vital Signs Date Time Temp Pulse Resp B/P (MAP) Pulse Ox O2 Delivery O2 Flow Rate FiO2 12/07/18 08:26 63 159/65 12/07/18 08:00 Nasal Cannula 2.0 12/07/18 07:45 98 12/07/18 07:23 97.6 18 97.6 I & O 12/06/18 12/06/18 12/07/18 14:59 22:59 06:59 Intake Total 1100 ml 1090 ml 1510 ml Output Total 650 ml 1100 ml Balance 1100 ml 440 ml 410 ml Physical Exam Physical Exam: GENERAL: Propped up in bed, alert, calm, NAD looks better HEENT: Pupils equal, oral cavity pink, dry NECK: Supple LUNGS: clear anteriorly HEART: S1, S2 ABDOMEN: Soft, no guarding : Rivera EXTREMITIES: Chronic venous insufficiency changes present. 1+ edema RLE. SKIN: warm to touch. Sacrococcygeal wound. NEUROLOGIC: Alert, responds appropriately [facility] clean General: mild distress Heart: Regular rate Lungs: Other (decrease bs) Abdomen: Normal bowel sounds Extremities: No clubbing, No cyanosis, No edema, Normal pulses, No tende rness/swelling Skin: No breakdown Labs Labs: Laboratory Tests Test 12/06/18 11:45 12/06/18 12:20 12/06/18 16:49 12/06/18 20:18 Prothrombin Time 15.4 SEC (11.7-14.0) Prothromb Time International Ratio 1.3 (0.8-1.1) Glucose (Fingerstick) 104 mg/dL (70-99) 154 mg/dL (70-99) 223 mg/dL (70-99) Test 12/07/18 04:47 12/07/18 06:20 12/07/18 07:28 Glucose (Fingerstick) 169 mg/dL (70-99) 165 mg/dL (70-99) White Blood Count 4.2 x10^3/uL (4.0-11.0) Red Blood Count 3.13 x10^6/uL (3.50-5.40) Hemoglobin 7.6 g/dL (12.0-15.5) Hematocrit 24.6 % (36.0-47.0) Mean Corpuscular Volume 78 fL (79-100) Mean Corpuscular Hemoglobin 24 pg (25-35) Mean Corpuscular Hemoglobin Concent 31 g/dL (31-37) Red Cell Distribution Width 21.2 % (11.5-14.5) Platelet Count 191 x10^3/uL (140-400) Neutrophils (%) (Auto) 55 % (31-73) Lymphocytes (%) (Auto) 21 % (24-48) Monocytes (%) (Auto) 20 % (0-9) Eosinophils (%) (Auto) 3 % (0-3) Basophils (%) (Auto) 1 % (0-3) Neutrophils # (Auto) 2.3 x10^3/uL (1.8-7.7) Lymphocytes # (Auto) 0.9 x10^3/uL (1.0-4.8) Monocytes # (Auto) 0.8 x10^3/uL (0.0-1.1) Eosinophils # (Auto) 0.1 x10^3/uL (0.0-0.7) Basophils # (Auto) 0.0 x10^3/uL (0.0-0.2) Sodium Level 143 mmol/L (136-145) Potassium Level 3.6 mmol/L (3.5-5.1) Chloride Level 104 mmol/L (98-107) Carbon Dioxide Level 35 mmol/L (21-32) Anion Gap 4 (6-14) Blood Urea Nitrogen 13 mg/dL (7-20) Creatinine 1.1 mg/dL (0.6-1.0) Estimated GFR (Cockcroft-Gault) 49.1 BUN/Creatinine Ratio 12 (6-20) Glucose Level 166 mg/dL (70-99) Calcium Level 9.1 mg/dL (8.5-10.1) Total Bilirubin 0.3 mg/dL (0.2-1.0) Aspartate Amino Transf (AST/SGOT) 30 U/L (15-37) Alanine Aminotransferase (ALT/SGPT) 222 U/L (14-59) Alkaline Phosphatase 88 U/L (46-116) Total Protein 6.0 g/dL (6.4-8.2) Albumin 1.9 g/dL (3.4-5.0) Albumin/Globulin Ratio 0.5 (1.0-1.7) Review of Systems Review of Systems: Pt denies HERCULES Pt denies chills Pt co cough Pt co shortness of breath Assessment and Plan Assessmemt and Plan Problems Medical Problems: (1) CHF (congestive heart failure) Status: Acute (2) Renal failure Status: Acute (3) Respiratory failure Status: Acute (4) Septic shock Status: Acute (5) UTI (urinary tract infection) Status: Acute Assessment CHF Respiratory failure Renal Failure Sepsis UTI Cognitive Impairment at baseline CAD s/p PCI/stent LAD/RCA: cardiac cath 03/2017 showed patent stents. Hypothyroidism Plan Discharge to hospice Remove rivera PPN Cardiac monitoring Titrate O2 IV zosyn Labs Encourage PO meds Diet per recommendation DNR Prognosis guarded Appreciate subspecialist input Comment Review of Relevant I have reviewed the following items brooke (where applicable) has been applied. Medications: Current Medications Medications (Trade) Dose Ordered Sig/Kerry Route PRN Reason Start Time Stop Time Status Last Admin Dose Admin Alprazolam (Xanax) 0.25 mg PRN Q8HRS PRN PO ANXIETY / AGITATION 12/06/18 16:00 12/07/18 00:28 Lactobacillus Rhamnosus (Culturelle) 1 cap BID PO 12/07/18 09:00 12/07/18 08:24 TICO EDUARDO III DO Dec 07, 2018 10:32
[2018-12-07 10:45] VITALS: BP 137/65
--- NOTE | 2018-12-07 11:37 | PDOC ---
CARDIO Progress Notes Date and Time Date of Service 12/07/18 Time of Evaluation 1130 Subjective Subjective: No Chest Pain, No shortness of breath, No Palpitations, Other Vitals Vitals Vital Signs Date Time Temp Pulse Resp B/P (MAP) Pulse Ox O2 Delivery O2 Flow Rate FiO2 12/07/18 11:29 Nasal Cannula 2.0 12/07/18 10:45 97.8 68 18 137/65 (89) 98 97.8 Weight Weight [ ] Input and Output Intake and Output l Intake and Output 12/07/18 07:00 Intake Total 3700 ml Output Total 1750 ml Balance 1950 ml Intake Oral 840 ml IV Total 2860 ml Output Urine Total 1750 ml # Bowel Movements 1 Laboratory Labs Laboratory Tests Test 12/06/18 11:45 12/06/18 12:20 12/06/18 16:49 12/06/18 20:18 Prothrombin Time 15.4 SEC (11.7-14.0) Prothromb Time International Ratio 1.3 (0.8-1.1) Glucose (Fingerstick) 104 mg/dL (70-99) 154 mg/dL (70-99) 223 mg/dL (70-99) Test 12/07/18 04:47 12/07/18 06:20 12/07/18 07:28 12/07/18 11:33 Glucose (Fingerstick) 169 mg/dL (70-99) 165 mg/dL (70-99) 249 mg/dL (70-99) White Blood Count 4.2 x10^3/uL (4.0-11.0) Red Blood Count 3.13 x10^6/uL (3.50-5.40) Hemoglobin 7.6 g/dL (12.0-15.5) Hematocrit 24.6 % (36.0-47.0) Mean Corpuscular Volume 78 fL (79-100) Mean Corpuscular Hemoglobin 24 pg (25-35) Mean Corpuscular Hemoglobin Concent 31 g/dL (31-37) Red Cell Distribution Width 21.2 % (11.5-14.5) Platelet Count 191 x10^3/uL (140-400) Neutrophils (%) (Auto) 55 % (31-73) Lymphocytes (%) (Auto) 21 % (24-48) Monocytes (%) (Auto) 20 % (0-9) Eosinophils (%) (Auto) 3 % (0-3) Basophils (%) (Auto) 1 % (0-3) Neutrophils # (Auto) 2.3 x10^3/uL (1.8-7.7) Lymphocytes # (Auto) 0.9 x10^3/uL (1.0-4.8) Monocytes # (Auto) 0.8 x10^3/uL (0.0-1.1) Eosinophils # (Auto) 0.1 x10^3/uL (0.0-0.7) Basophils # (Auto) 0.0 x10^3/uL (0.0-0.2) Sodium Level 143 mmol/L (136-145) Potassium Level 3.6 mmol/L (3.5-5.1) Chloride Level 104 mmol/L (98-107) Carbon Dioxide Level 35 mmol/L (21-32) Anion Gap 4 (6-14) Blood Urea Nitrogen 13 mg/dL (7-20) Creatinine 1.1 mg/dL (0.6-1.0) Estimated GFR (Cockcroft-Gault) 49.1 BUN/Creatinine Ratio 12 (6-20) Glucose Level 166 mg/dL (70-99) Calcium Level 9.1 mg/dL (8.5-10.1) Total Bilirubin 0.3 mg/dL (0.2-1.0) Aspartate Amino Transf (AST/SGOT) 30 U/L (15-37) Alanine Aminotransferase (ALT/SGPT) 222 U/L (14-59) Alkaline Phosphatase 88 U/L (46-116) Total Protein 6.0 g/dL (6.4-8.2) Albumin 1.9 g/dL (3.4-5.0) Albumin/Globulin Ratio 0.5 (1.0-1.7) Microbiology Micro Microbiology 11/30/18 Urine Culture - Final, Complete 11/30/18 Urine Culture Result 1 (DEEPTI) - Final, Complete 11/30/18 Antimicrobic Susceptibility - Final, Complete 11/30/18 Blood Culture - Final, Complete 11/30/18 Blood Culture Result 1 (DEEPTI) - Final, Complete 11/30/18 Blood Culture Result 2 (DEEPTI) - Final, Complete 11/30/18 Antimicrobic Susceptibility - Final, Complete Physical Exam HEENT: Neck Supple W Full Motion Chest: Symmetric LUNGS: Clear to Auscultation, Other (diminished bases) Heart: S1S2, RRR (SR) Abdomen: Soft N/T Extremities: Other (trace bilateral LE edema ) Neurology: alert, other (drowsy) Assessment Assessment 1. Acute respiratory failure with possible aspiration: extubated. pulmonary following 2. UTI sepsis: BC +. ID following 3. DKA with severe lactic acidosis 4. MANDIE; improved 5. Metabolic/hypoxic encephalopathy 6. NSTEMI: multifactorial including suspected ischemia. 2D echo showed normal LVEF. 7. Hx of GI bleed: possible AVMs in colon in the past per GI 8. Hx of PAFIB; mainly SR, but bursts of AFIB RVR noted on tele. Eliquis added for stroke prevention. 9. CAD s/p PCI/stent LAD/RCA: cardiac cath 03/2017 showed patent stents 10. DM2: per IM 11. Transaminitis; improved 12. Hypertension; on nitro gtt 13. H/o breast CA Recommendations Continue BB for rate control Lasix therapy. Patient refusing rehab; requesting home with Hospice. Will await decision. Supportive care MICHEAL DORAN APRN Dec 07, 2018 11:37
[2018-12-07] MEDS: IV DEXTROSE 5% 1,000 ML IV SCH (12:03)
[2018-12-07] MEDS: AMINO AC 3%/ELECTROLYTE/GLYCER 1,000 ML IV SCH (14:07)
--- NOTE | 2018-12-07 14:12 | NUR ---
SS following up with discharge planning. Pt still continuing to decline rehabilitation services requesting to discharge to home with hospice. Per pt's RN she has reported that same to staff. SS phoned and faxed referral to [facility], ; fax [phone]. SS will continue to follow for discharge planning.
[2018-12-07 14:35] VITALS: BP 149/91
--- NOTE | 2018-12-07 14:43 | NUR ---
Wound care: Patient seen per wound care follow up. Patient has unstageable pressure ulcer to coccyx. Patient assisted up with walker and two assist. Wound cleansed, assessed, measured, and pictured. Recommendations for honey alginate and foam dressing. Dressing applied and honey alginate left in room for dressing change. Patient is possibly discharging tomorrow with hospice. ordered a wheelchair cushion for this patient and sent bed back since patient will be discharging. No other wounds noted upon complete head to toe assessment. Patient assisted back to the chair. bilateral lower extremities elevated. dressing change instructions left in room. family at bedside. call light in reach.
[2018-12-07 19:29] VITALS: BP 143/63
[2018-12-07] MEDS: traZODone 100 MG TABLET. PO SCH (21:09)
[2018-12-07] MEDS: APIXABAN 5 MG TABLET. PO SCH (21:09)
[2018-12-07 22:34] VITALS: BP 147/65
[2018-12-08 03:40] VITALS: BP 184/74
[2018-12-08] MEDS: ONDANSETRON PF 4 MG/2 ML VIAL. IVP PRN (03:59)
[2018-12-08] MEDS: hydrALAZINE 20 MG/ML VIAL. IVP PRN (03:59)
[2018-12-08 04:10] LABS: BASO % 1 % (0-3); EOS # 0.1 x10^3/uL (0.0-0.7); EOS % 4 % (0-3); HEMATOCRIT 24.1 % (36.0-47.0); HEMOGLOBIN 7.7 g/dL (12.0-15.5); LYMPH # 0.9 x10^3/uL (1.0-4.8); LYMPH % 26 % (24-48); MEAN CORPUSCULAR HEMOGLOBIN 25 pg (25-35); MEAN CORPUSCULAR HGB CONC 32 g/dL (31-37); MEAN CORPUSCULAR VOLUME 78 fL (79-100); MONO # 0.7 x10^3/uL (0.0-1.1); MONO % 20 % (0-9); NEUT # 1.7 x10^3/uL (1.8-7.7); NEUT % 50 % (31-73); PLATELET COUNT 177 x10^3/uL (140-400); RED CELL DISTRIBUTION WIDTH 20.9 % (11.5-14.5); WHITE BLOOD COUNT 3.4 x10^3/uL (4.0-11.0)
[2018-12-08 04:35] LABS: ALBUMIN 1.8 g/dL (3.4-5.0); ALBUMIN/GLOBULIN RATIO 0.4 (1.0-1.7); CALCIUM 9.1 mg/dL (8.5-10.1); CREATININE 1.2 mg/dL (0.6-1.0); GFR 44.4; POTASSIUM 3.8 mmol/L (3.5-5.1); TOTAL BILIRUBIN 0.3 mg/dL (0.2-1.0)
[2018-12-08 05:13] LABS: % BASOS 1 % (0-3); % EOS 3 % (0-5); % LYMPHS 30 % (24-48); % MONOS 14 % (0-10); % SEGS 52 % (35-66); ANISOCYTOSIS MOD; HYPOCHROMIA MOD; PLT ESTIMATE ADEQUATE (ADEQUATE)
[2018-12-08] MEDS: LEVOTHYROXINE 150 MCG TABLET PO SCH (05:41)
[2018-12-08] MEDS: PANTOPRAZOLE 40 MG TABLET.DR. PO SCH (05:41)
[2018-12-08] MEDS: PIPERACILLIN/TAZOBACTAM 3.375 GM in IV NORMAL SALINE 50ML 50 ML IV SCH ×5 (05:42→17:10)
[2018-12-08 07:00] VITALS: BP 116/55
[2018-12-08] MEDS: IPRATRPIUM/ALBUTEROL 0.5/2.5MG 3 ML NEBU. IH SCH ×4 (08:00→19:59)
[2018-12-08] MEDS: INSULIN LISPRO 300 UNITS/3 ML VIAL. SQ SCH ×3 (08:00→17:17)
[2018-12-08] MEDS: APIXABAN 5 MG TABLET. PO SCH ×2 (08:25→21:42)
[2018-12-08] MEDS: GABAPENTIN 100 MG CAPSULE. PO SCH ×3 (08:25→21:42)
[2018-12-08] MEDS: FERROUS SULFATE 325 MG TABLET. PO SCH (08:26)
[2018-12-08] MEDS: SENNOSIDES/DOCUSATE 8.6/50MG TABLET. PO SCH ×2 (08:26→21:42)
[2018-12-08] MEDS: amLODIPine BESYLATE 10 MG TABLET PO SCH (08:26)
[2018-12-08] MEDS: TAMSULOSIN 0.4 MG CAP.ER.24H. PO SCH (08:26)
[2018-12-08] MEDS: LACTOBACILLUS RHAMNOSUS GG 1 CAPSULE. PO SCH ×2 (08:27→21:42)
[2018-12-08] MEDS: METOPROLOL SUCC 24HR ER 25 MG TAB.ER.24H. PO SCH (08:27)
[2018-12-08] MEDS: CYCLOBENZAPRINE 10 MG TABLET. PO SCH (08:27)
[2018-12-08] MEDS: ASPIRIN ENTERIC COATED 81 MG TABLET.DR. PO SCH (08:27)
[2018-12-08] MEDS: FUROSEMIDE 20 MG TABLET PO SCH (08:27)
[2018-12-08] MEDS: AMINO AC 3%/ELECTROLYTE/GLYCER 1,000 ML IV SCH (08:28)
[2018-12-08] MEDS: DICLOFENAC SODIUM 1% TOPICAL GEL 100GM TUBE. TP SCH ×4 (08:28→21:43)
[2018-12-08] MEDS: INSULIN GLARGINE SYRINGE. SQ SCH ×2 (09:00→21:44)
[2018-12-08] MEDS: DAPTOmycin (GENERIC) IVPB 320 MG in IV NORMAL SALINE 50ML 50 ML IV SCH (09:07)
[2018-12-08 11:00] VITALS: BP 138/64
--- NOTE | 2018-12-08 11:07 | PDOC ---
Subjective: Subjective: Tolerating diet and stooling, denies abd pain. Says she's not really clear on what the plan is - asks if she'll get better and isn't sure if she wants more testing or not. Objective: Objective: D/w nurse - decision pending re: Hospice at [facility] or palliative home health. Vital Signs: Vital Signs Date Time Temp Pulse Resp B/P (MAP) Pulse Ox O2 Delivery O2 Flow Rate FiO2 12/08/18 08:27 71 116/55 12/08/18 08:01 97 Nasal Cannula 2.0 12/08/18 07:00 97.6 20 97.6 Labs: Laboratory Tests Test 12/07/18 11:33 12/07/18 13:09 12/07/18 16:17 12/07/18 20:29 Glucose (Fingerstick) 249 mg/dL 265 mg/dL 221 mg/dL 111 mg/dL Test 12/08/18 04:00 12/08/18 07:49 White Blood Count 3.4 x10^3/uL Red Blood Count 3.10 x10^6/uL Hemoglobin 7.7 g/dL Hematocrit 24.1 % Mean Corpuscular Volume 78 fL Mean Corpuscular Hemoglobin 25 pg Mean Corpuscular Hemoglobin Concent 32 g/dL Red Cell Distribution Width 20.9 % Platelet Count 177 x10^3/uL Neutrophils (%) (Auto) 50 % Lymphocytes (%) (Auto) 26 % Monocytes (%) (Auto) 20 % Eosinophils (%) (Auto) 4 % Basophils (%) (Auto) 1 % Neutrophils # (Auto) 1.7 x10^3/uL Lymphocytes # (Auto) 0.9 x10^3/uL Monocytes # (Auto) 0.7 x10^3/uL Eosinophils # (Auto) 0.1 x10^3/uL Basophils # (Auto) 0.0 x10^3/uL Segmented Neutrophils % 52 % Lymphocytes % 30 % Monocytes % 14 % Eosinophils % 3 % Basophils % 1 % Platelet Estimate Adequate Hypochromasia Mod Anisocytosis Mod Sodium Level 144 mmol/L Potassium Level 3.8 mmol/L Chloride Level 105 mmol/L Carbon Dioxide Level 37 mmol/L Anion Gap 2 Blood Urea Nitrogen 13 mg/dL Creatinine 1.2 mg/dL Estimated GFR (Cockcroft-Gault) 44.4 BUN/Creatinine Ratio 11 Glucose Level 71 mg/dL Calcium Level 9.1 mg/dL Total Bilirubin 0.3 mg/dL Aspartate Amino Transf (AST/SGOT) 25 U/L Alanine Aminotransferase (ALT/SGPT) 167 U/L Alkaline Phosphatase 84 U/L Total Protein 6.0 g/dL Albumin 1.8 g/dL Albumin/Globulin Ratio 0.4 Glucose (Fingerstick) 101 mg/dL PE: GEN: NAD LUNGS: NC 2L HEART: RRR ABD: S/ND/NT NEURO/PSYCH: A & O � 3 - probably forgetful - takes awhile to answer questions A/P: Chronic VALERIE - stable - ?SB AVMs, last 'scopes in 2015 unrevealing - past records indicate 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 Continue iron and PPI. Yesterday desired Hospice and no further evaluation (like 'scopes), today less clear - will follow along. DANN CARTER Dec 08, 2018 11:07
--- NOTE | 2018-12-08 11:40 | NUR ---
SS following up with discharge planing. Pt accepted on hospice. Pt's daughter reported that caregivers cannot start until Wednesday but she can be with pt starting 12/09/2018 through the weekend until caregivers can start. Hospice reported that DME will be delivered to the home on 12/09/2018 in the morning. Pt will discharge to home tomorrow at 1300 with [facility], ; fax [phone] via [facility] ambulance. SS will fax discharge orders once received. Pt, pt's RN, and pt's daughter notified.
--- NOTE | 2018-12-08 11:41 | PDOC ---
[facility] PROGRESS NOTE Chief Complaint Chief Complaint Respiratory failure Renal Failure Sepsis UTI History of Present Illness History of Present Illness 12/08/18 Pt was seen and examined at bedside Being transferred to hospice tomorrow Pt receiving O2 by nasal cannula, 2.0 L DW RN Charts and labs reviewed Seen by GI today for dysphagia 12/07/18 Pt was seen and examined in cardiovascular care at bedside Pt is NSR On nasal canula 2.0L Cadet bsd Pt reported feeling better Palliative care was consulted on 12/06. Pt is now DNR and wants to go to hospice D/w RN Chart and labs reviewed BUN was 13, down from 16 CXR 12/06 Impression: 1. Decreased diffuse interstitial thickening. 2. Small bilateral pleural effusions, unchanged. Videoswallow 12/06 Impression: Minimal epiglottic penetration with nectar and thin liquids which are not identified to be ejected at the time of swallowing although no aspiration is noted. RECOMMENDATIONS: Dysphagia II w/honey thick liquids; precautions as posted. Meds 1-2 at a time w/honey thick liquid via cup. NO STRAWS. Precautions sent back to w/chart and pt, diet orders entered. Echocardiogram 12/06 Limited echo to assess LV function. The Ejection Fraction is 55-60%. There is normal LV segmental wall motion. There is no evidence of significant pericardial effusion. 12/06/18 Pt was seen and examined in cardiovascular care Pt is NSR Pt is scheduled for swallow test Pt was receiving physical therapy during visit On nasal canula 2.0L Chart and labs reviewed Potassium was 3.6, up from 3.0 BUN was 16, down from 20 Cr was 1, down from 1.1 D/w 12/05/18 Pt was seen and examined in the ICU at bedside Pt is NSR. Reported bursts of A-fib last night Pt scheduled for swallow test later in the day Pt is on D5W saline as of 12/04/18 Cadet BSD Charts and labs reviewed Potassium remains 3.0 BUN was 20, down from 23 Cr was 1.1, down from 1.3 12/04/18 Pt was seen and examined in the ICU sitting in chair. Extubated Pt did not pass swallow test Accompanied by family members Charts and labs reviewed Potassium was 3.0, down from 3.4 BUN was 23, down from 26 Cr was 1.3, down from 1.7 D/w RN 12/03/18 Pt was seen and examined in the ICU Pt intubated. Vent settings: (AC 12/450/40% 5 PEEP) Pt was wearing mittens Accompanied by family members Reviewed charts and labs BP was elevated at 194/77 Discussed denial of [facility] transfer. Family ok now. D/w RN 12/02/18 Pt was seen and examined in ICU Reviewed chart and labs Discussed with [facility] transfer RN Pt intubated Vent Settings (AC/12/450/40% 5.0 PEEP) I talked extensively with her daughter about her concerns . The daughter wanted to transfer the pt but we reassured her that the pt is getting the best care here in the ICU. Nephrology was in the room with us. CROW SEPULVEDA 12/01/18 Pt was seen and examined in the ICU Pt is intubated with Vent Settings: (AC/12/450/150% 5 PEEP) Echo was being performed in room during exam CROW SEPULVEDA Vitals/I&O Vitals/I&O: Vital Signs Date Time Temp Pulse Resp B/P (MAP) Pulse Ox O2 Delivery O2 Flow Rate FiO2 12/08/18 11:00 97.8 73 20 138/64 (88) 96 Nasal Cannula 3.0 97.8 I & O 12/07/18 12/07/18 12/08/18 14:59 22:59 06:59 Intake Total 740 ml 290 ml 1060 ml Output Total 1900 ml Balance 740 ml -1610 ml 1060 ml Physical Exam Physical Exam: GENERAL: Propped up in bed, resting quietly, arouses to name HEENT: Pupils equal, oral cavity pink, dry NECK: Supple LUNGS: clear anteriorly HEART: S1, S2 ABDOMEN: Soft, no guarding : Cadet EXTREMITIES: Chronic venous insufficiency changes present. 1+ edema RLE. SKIN: warm to touch. Sacrococcygeal wound. NEUROLOGIC: Alert, responds appropriately LIJ clean General: Alert, Oriented X3, Cooperative, mild distress Heart: Regular rate Lungs: Clear, Other (decrease bs) Abdomen: Normal bowel sounds Extremities: No clubbing, No cyanosis, No edema, Normal pulses, No tenderness/swelling Skin: No breakdown Labs Labs: Laboratory Tests Test 12/07/18 13:09 12/07/18 16:17 12/07/18 20:29 12/08/18 04:00 Glucose (Fingerstick) 265 mg/dL (70-99) 221 mg/dL (70-99) 111 mg/dL (70-99) White Blood Count 3.4 x10^3/uL (4.0-11.0) Red Blood Count 3.10 x10^6/uL (3.50-5.40) Hemoglobin 7.7 g/dL (12.0-15.5) Hematocrit 24.1 % (36.0-47.0) Mean Corpuscular Volume 78 fL (79-100) Mean Corpuscular Hemoglobin 25 pg (25-35) Mean Corpuscular Hemoglobin Concent 32 g/dL (31-37) Red Cell Distribution Width 20.9 % (11.5-14.5) Platelet Count 177 x10^3/uL (140-400) Neutrophils (%) (Auto) 50 % (31-73) Lymphocytes (%) (Auto) 26 % (24-48) Monocytes (%) (Auto) 20 % (0-9) Eosinophils (%) (Auto) 4 % (0-3) Basophils (%) (Auto) 1 % (0-3) Neutrophils # (Auto) 1.7 x10^3/uL (1.8-7.7) Lymphocytes # (Auto) 0.9 x10^3/uL (1.0-4.8) Monocytes # (Auto) 0.7 x10^3/uL (0.0-1.1) Eosinophils # (Auto) 0.1 x10^3/uL (0.0-0.7) Basophils # (Auto) 0.0 x10^3/uL (0.0-0.2) Segmented Neutrophils % 52 % (35-66) Lymphocytes % 30 % (24-48) Monocytes % 14 % (0-10) Eosinophils % 3 % (0-5) Basophils % 1 % (0-3) Platelet Estimate Adequate (ADEQUATE) Hypochromasia Mod Anisocytosis Mod Sodium Level 144 mmol/L (136-145) Potassium Level 3.8 mmol/L (3.5-5.1) Chloride Level 105 mmol/L (98-107) Carbon Dioxide Level 37 mmol/L (21-32) Anion Gap 2 (6-14) Blood Urea Nitrogen 13 mg/dL (7-20) Creatinine 1.2 mg/dL (0.6-1.0) Estimated GFR (Cockcroft-Gault) 44.4 BUN/Creatinine Ratio 11 (6-20) Glucose Level 71 mg/dL (70-99) Calcium Level 9.1 mg/dL (8.5-10.1) Total Bilirubin 0.3 mg/dL (0.2-1.0) Aspartate Amino Transf (AST/SGOT) 25 U/L (15-37) Alanine Aminotransferase (ALT/SGPT) 167 U/L (14-59) Alkaline Phosphatase 84 U/L (46-116) Total Protein 6.0 g/dL (6.4-8.2) Albumin 1.8 g/dL (3.4-5.0) Albumin/Globulin Ratio 0.4 (1.0-1.7) Test 12/08/18 07:49 Glucose (Fingerstick) 101 mg/dL (70-99) Review of Systems Review of Systems: No nausea, no vomiting No chest pain, no palpitations Assessment and Plan Assessmemt and Plan Problems Medical Problems: (1) CHF (congestive heart failure) Status: Acute (2) Renal failure Status: Acute (3) Respiratory failure Status: Acute (4) Septic shock Status: Acute (5) UTI (urinary tract infection) Status: Acute Assessment Sepsis UTI Renal failure CHF Plan BB for heart rate control O2 per nasal cannula Lasix per cardiology D/C to hospice Comment Review of Relevant I have reviewed the following items brooke (where applicable) has been applied. Medications: Current Medications Medications (Trade) Dose Ordered Sig/Kerry Route PRN Reason Start Time Stop Time Status Last Admin Dose Admin Apixaban (Eliquis) 5 mg BID PO 12/07/18 21:00 12/08/18 08:25 TICO EDUARDO III DO Dec 08, 2018 11:41
--- NOTE | 2018-12-08 11:47 | PDOC ---
PULMONARY PROGRESS NOTES Subjective extubated,12/03, on 02, sob better, has cough, no pain, is on home o2 Vitals Vital Signs Date Time Temp Pulse Resp B/P (MAP) Pulse Ox O2 Delivery O2 Flow Rate FiO2 12/08/18 11:00 97.8 73 20 138/64 (88) 96 Nasal Cannula 3.0 97.8 Comments General: Alert, No acute distress HEENT: Other (nc at perrl nose clear orally intubated neck no lad no thyromegaly) Lungs: Clear, Other (decrease bs) Cardiovascular: S1, S2 Abdomen: Soft, Non-tender, Other (no mass) Neuro Exam: Alert Extremities: Other (1+edema/ stasis) Skin: Warm Labs Laboratory Tests Test 12/06/18 12:20 12/06/18 16:49 12/06/18 20:18 12/07/18 04:47 Glucose (Fingerstick) 104 mg/dL (70-99) 154 mg/dL (70-99) 223 mg/dL (70-99) 169 mg/dL (70-99) Test 12/07/18 06:20 12/07/18 07:28 12/07/18 11:33 12/07/18 13:09 White Blood Count 4.2 x10^3/uL (4.0-11.0) Red Blood Count 3.13 x10^6/uL (3.50-5.40) Hemoglobin 7.6 g/dL (12.0-15.5) Hematocrit 24.6 % (36.0-47.0) Mean Corpuscular Volume 78 fL (79-100) Mean Corpuscular Hemoglobin 24 pg (25-35) Mean Corpuscular Hemoglobin Concent 31 g/dL (31-37) Red Cell Distribution Width 21.2 % (11.5-14.5) Platelet Count 191 x10^3/uL (140-400) Neutrophils (%) (Auto) 55 % (31-73) Lymphocytes (%) (Auto) 21 % (24-48) Monocytes (%) (Auto) 20 % (0-9) Eosinophils (%) (Auto) 3 % (0-3) Basophils (%) (Auto) 1 % (0-3) Neutrophils # (Auto) 2.3 x10^3/uL (1.8-7.7) Lymphocytes # (Auto) 0.9 x10^3/uL (1.0-4.8) Monocytes # (Auto) 0.8 x10^3/uL (0.0-1.1) Eosinophils # (Auto) 0.1 x10^3/uL (0.0-0.7) Basophils # (Auto) 0.0 x10^3/uL (0.0-0.2) Sodium Level 143 mmol/L (136-145) Potassium Level 3.6 mmol/L (3.5-5.1) Chloride Level 104 mmol/L (98-107) Carbon Dioxide Level 35 mmol/L (21-32) Anion Gap 4 (6-14) Blood Urea Nitrogen 13 mg/dL (7-20) Creatinine 1.1 mg/dL (0.6-1.0) Estimated GFR (Cockcroft-Gault) 49.1 BUN/Creatinine Ratio 12 (6-20) Glucose Level 166 mg/dL (70-99) Calcium Level 9.1 mg/dL (8.5-10.1) Total Bilirubin 0.3 mg/dL (0.2-1.0) Aspartate Amino Transf (AST/SGOT) 30 U/L (15-37) Alanine Aminotransferase (ALT/SGPT) 222 U/L (14-59) Alkaline Phosphatase 88 U/L (46-116) Total Protein 6.0 g/dL (6.4-8.2) Albumin 1.9 g/dL (3.4-5.0) Albumin/Globulin Ratio 0.5 (1.0-1.7) Glucose (Fingerstick) 165 mg/dL (70-99) 249 mg/dL (70-99) 265 mg/dL (70-99) Test 12/07/18 16:17 12/07/18 20:29 12/08/18 04:00 12/08/18 07:49 Glucose (Fingerstick) 221 mg/dL (70-99) 111 mg/dL (70-99) 101 mg/dL (70-99) White Blood Count 3.4 x10^3/uL (4.0-11.0) Red Blood Count 3.10 x10^6/uL (3.50-5.40) Hemoglobin 7.7 g/dL (12.0-15.5) Hematocrit 24.1 % (36.0-47.0) Mean Corpuscular Volume 78 fL (79-100) Mean Corpuscular Hemoglobin 25 pg (25-35) Mean Corpuscular Hemoglobin Concent 32 g/dL (31-37) Red Cell Distribution Width 20.9 % (11.5-14.5) Platelet Count 177 x10^3/uL (140-400) Neutrophils (%) (Auto) 50 % (31-73) Lymphocytes (%) (Auto) 26 % (24-48) Monocytes (%) (Auto) 20 % (0-9) Eosinophils (%) (Auto) 4 % (0-3) Basophils (%) (Auto) 1 % (0-3) Neutrophils # (Auto) 1.7 x10^3/uL (1.8-7.7) Lymphocytes # (Auto) 0.9 x10^3/uL (1.0-4.8) Monocytes # (Auto) 0.7 x10^3/uL (0.0-1.1) Eosinophils # (Auto) 0.1 x10^3/uL (0.0-0.7) Basophils # (Auto) 0.0 x10^3/uL (0.0-0.2) Segmented Neutrophils % 52 % (35-66) Lymphocytes % 30 % (24-48) Monocytes % 14 % (0-10) Eosinophils % 3 % (0-5) Basophils % 1 % (0-3) Platelet Estimate Adequate (ADEQUATE) Hypochromasia Mod Anisocytosis Mod Sodium Level 144 mmol/L (136-145) Potassium Level 3.8 mmol/L (3.5-5.1) Chloride Level 105 mmol/L (98-107) Carbon Dioxide Level 37 mmol/L (21-32) Anion Gap 2 (6-14) Blood Urea Nitrogen 13 mg/dL (7-20) Creatinine 1.2 mg/dL (0.6-1.0) Estimated GFR (Cockcroft-Gault) 44.4 BUN/Creatinine Ratio 11 (6-20) Glucose Level 71 mg/dL (70-99) Calcium Level 9.1 mg/dL (8.5-10.1) Total Bilirubin 0.3 mg/dL (0.2-1.0) Aspartate Amino Transf (AST/SGOT) 25 U/L (15-37) Alanine Aminotransferase (ALT/SGPT) 167 U/L (14-59) Alkaline Phosphatase 84 U/L (46-116) Total Protein 6.0 g/dL (6.4-8.2) Albumin 1.8 g/dL (3.4-5.0) Albumin/Globulin Ratio 0.4 (1.0-1.7) Laboratory Tests Test 12/07/18 13:09 12/07/18 16:17 12/07/18 20:29 12/08/18 04:00 Glucose (Fingerstick) 265 mg/dL (70-99) 221 mg/dL (70-99) 111 mg/dL (70-99) White Blood Count 3.4 x10^3/uL (4.0-11.0) Red Blood Count 3.10 x10^6/uL (3.50-5.40) Hemoglobin 7.7 g/dL (12.0-15.5) Hematocrit 24.1 % (36.0-47.0) Mean Corpuscular Volume 78 fL (79-100) Mean Corpuscular Hemoglobin 25 pg (25-35) Mean Corpuscular Hemoglobin Concent 32 g/dL (31-37) Red Cell Distribution Width 20.9 % (11.5-14.5) Platelet Count 177 x10^3/uL (140-400) Neutrophils (%) (Auto) 50 % (31-73) Lymphocytes (%) (Auto) 26 % (24-48) Monocytes (%) (Auto) 20 % (0-9) Eosinophils (%) (Auto) 4 % (0-3) Basophils (%) (Auto) 1 % (0-3) Neutrophils # (Auto) 1.7 x10^3/uL (1.8-7.7) Lymphocytes # (Auto) 0.9 x10^3/uL (1.0-4.8) Monocytes # (Auto) 0.7 x10^3/uL (0.0-1.1) Eosinophils # (Auto) 0.1 x10^3/uL (0.0-0.7) Basophils # (Auto) 0.0 x10^3/uL (0.0-0.2) Segmented Neutrophils % 52 % (35-66) Lymphocytes % 30 % (24-48) Monocytes % 14 % (0-10) Eosinophils % 3 % (0-5) Basophils % 1 % (0-3) Platelet Estimate Adequate (ADEQUATE) Hypochromasia Mod Anisocytosis Mod Sodium Level 144 mmol/L (136-145) Potassium Level 3.8 mmol/L (3.5-5.1) Chloride Level 105 mmol/L (98-107) Carbon Dioxide Level 37 mmol/L (21-32) Anion Gap 2 (6-14) Blood Urea Nitrogen 13 mg/dL (7-20) Creatinine 1.2 mg/dL (0.6-1.0) Estimated GFR (Cockcroft-Gault) 44.4 BUN/Creatinine Ratio 11 (6-20) Glucose Level 71 mg/dL (70-99) Calcium Level 9.1 mg/dL (8.5-10.1) Total Bilirubin 0.3 mg/dL (0.2-1.0) Aspartate Amino Transf (AST/SGOT) 25 U/L (15-37) Alanine Aminotransferase (ALT/SGPT) 167 U/L (14-59) Alkaline Phosphatase 84 U/L (46-116) Total Protein 6.0 g/dL (6.4-8.2) Albumin 1.8 g/dL (3.4-5.0) Albumin/Globulin Ratio 0.4 (1.0-1.7) Test 12/08/18 07:49 Glucose (Fingerstick) 101 mg/dL (70-99) Medications Active Scripts Medications Dose Route/Sig Max Daily Dose Days Date Category Dose Instructions Humalog (Insulin Lispro) 100 Unit/1 Ml Insuln.pen 10 Units SQ TIDWMEALS MDD 1 14 02/02/18 Rx Lantus Solostar (Insulin Glargine,Hum.rec.anlog) 100 Unit/1 Ml Insuln.pen 30 Units SQ QHS 14 02/02/18 Rx Gabapentin (Gabapentin) 100 Mg Capsule 200 Mg PO TID MDD 1 14 02/02/18 Rx Hydrocodone-Apap 5-325 (Hydrocodone Bit/Acetaminophen) 1 Each Tablet 1 Tab PO PRN Q6HRS PRN 02/02/18 Rx Potassium Chloride 10 Meq Tablet.er 10 Meq PO DAILY 01/26/18 Reported Furosemide 40 Mg Tablet 40 Mg PO BID 01/26/18 Reported Fosamax (Alendronate Sodium) 70 Mg Tablet 1 Tab PO WEEKLY 01/26/18 Reported wednesday Vitamin D2 (Ergocalciferol (Vitamin D2)) 50,000 Unit Capsule 1 Cap PO TWICE WEEKLY 01/26/18 Reported WED AND sAT Amlodipine Besylate 10 Mg Tablet 10 Mg PO DAILY MDD 1 01/24/18 Rx Clonidine Tts-2 (Clonidine) 1 Each Patch.tdwk 1 Patch TD WEEKLY MDD 1 01/24/18 Rx Hydralazine Hcl 50 Mg Tablet 50 Mg PO TID MDD 1 01/24/18 Rx Metoprolol Succinate ( Xl ) (Metoprolol Succinate) 25 Mg Tab.er.24h 1 Tab PO DAILY 12/31/17 Reported Voltaren (Diclofenac Sodium) 100 Gm Gel..gram. 1 Gm TP QID 12/31/17 Reported Ferrous Sulfate 325 Mg Tablet 325 Mg PO DAILY 10/24/17 Reported Colestipol Hcl 1 Gm Tablet 1 Gm PO DAILY 10/24/17 Reported Oxybutynin Chloride 5 Mg Tablet 5 Mg PO TID 03/17/17 Reported Lipitor (Atorvastatin Calcium) 80 Mg Tablet 80 Mg PO HS 03/17/17 Reported Levothyroxine Sodium 150 Mcg Tablet 1 Tab PO DAILY 03/17/17 Reported Isosorbide Mononitrate Er (Isosorbide Mononitrate) 30 Mg Tab.er.24h 1 Tab PO DAILY 03/17/17 Reported Lantus (Insulin Glargine,Hum.rec.anlog) 100 Unit/1 Ml Vial 52 Unit SQ BID 05/14/15 Reported MAY INCREASE FOR BLOOD SUGARS GREATER THAN 200 FASTING Duoneb 0.5-3(2.5) Mg/3 Ml (Albuterol/Ipratropium) 3 Ml Ampul.neb 3 Ml IH QID 05/14/15 Reported Ventolin Hfa Inhaler (Albuterol Sulfate) 18 Gm Hfa.aer.ad 2 Puff INH Q4HRS PRN 05/14/15 Reported Venlafaxine Hcl Er (Venlafaxine Hcl) 150 Mg Cap.er.24h 150 Mg PO DAILY 05/14/15 Reported Novolog Flexpen (Insulin Aspart) 100 Unit/1 Ml Insuln.pen 30 Unit SQ TIDAC 05/14/15 Reported Pantoprazole Sodium (Pantoprazole Sodium) 40 Mg Tablet.dr 40 Mg PO DAILY 05/14/15 Reported Trazodone Hcl 100 Mg Tablet 200 Mg PO HS 05/14/15 Reported Comments cxr 12/04 reviewed b ll infilt atelectasis effusion CT CHEST Moderate to large bilateral pleural effusions with pulmonary interstitial infiltrates and scattered bibasilar atelectatic consolidation. Mild pulmonary vascular congestion. Circumferential wall thickening of the cecum and ascending colon. Correlate for underlying colitis including ischemic etiology. No significant surrounding stranding noted however. No abscess. Advanced atherosclerotic calcific involvement of the abdominal aorta and its branches. Stenosis of the distal abdominal aorta. Urinary bladder wall thickening which may represent neurogenic bladder or chronic cystitis. Impression . 1. Acute hypoxic respiratory failure secondary to acute congestive heart failure, sepsis. resolved. extubated 2. Abnormal chest x-ray c/w CHF., effusions improved 3. The patient with history of atrial fibrillation, on amiodarone and Eliquis. Likely diastolic HF. She had prior thoracentesis done at [facility] recently. 4. Encephalopathy, likely related to cardiac pump failure. CT head negative. resolved 5. Hyperglycemia,controlled 6. Abnormal renal function could be chronic kidney disease. 7. sepsis, gnr, co neg, abx per ID 8. Severe protein-calorie malnutrition. Plan . 1. 02 titration, 2. speech f/u 3. Diuresis 4. abx per ID 5. echocardiogram with normal EF 6. Follow Cardiology recommendation. 8. Follow renal function 9. DVT and stress ulcer prophylaxis. 10. Discussed with RN DNR/ HOSPICE ORQUIDEA DHALIWAL MD Dec 08, 2018 11:47
[2018-12-08] MEDS: IV DEXTROSE 5% 1,000 ML IV SCH (12:11)
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
[2018-12-08 15:00] VITALS: BP 140/85
[2018-12-08 19:16] VITALS: BP 131/56
[2018-12-08] MEDS: traZODone 100 MG TABLET. PO SCH (21:43)
[2018-12-08 22:24] VITALS: BP 153/65
[2018-12-08] MEDS: traMADol 50 MG TABLET PO PRN (23:11)
[2018-12-09] MEDS: PIPERACILLIN/TAZOBACTAM 3.375 GM in IV NORMAL SALINE 50ML 50 ML IV SCH ×3 (00:14→11:51)
[2018-12-09 03:07] VITALS: BP 159/68
[2018-12-09] MEDS: AMINO AC 3%/ELECTROLYTE/GLYCER 1,000 ML IV SCH (03:44)
[2018-12-09 06:00] LABS: ALBUMIN 1.8 g/dL (3.4-5.0); ALBUMIN/GLOBULIN RATIO 0.4 (1.0-1.7); CALCIUM 8.8 mg/dL (8.5-10.1); CREATININE 1.4 mg/dL (0.6-1.0); GFR 37.2; POTASSIUM 4.1 mmol/L (3.5-5.1); TOTAL BILIRUBIN 0.2 mg/dL (0.2-1.0); TOTAL PROTEIN 5.9 g/dL (6.4-8.2)
[2018-12-09] MEDS: LEVOTHYROXINE 150 MCG TABLET PO SCH (06:11)
[2018-12-09] MEDS: PANTOPRAZOLE 40 MG TABLET.DR. PO SCH (06:11)
[2018-12-09 07:18] VITALS: BP 147/70
[2018-12-09] MEDS: IPRATRPIUM/ALBUTEROL 0.5/2.5MG 3 ML NEBU. IH SCH ×2 (07:31→12:00)
[2018-12-09] MEDS: INSULIN LISPRO 300 UNITS/3 ML VIAL. SQ SCH ×2 (07:58→11:41)
[2018-12-09] MEDS: FUROSEMIDE 20 MG TABLET PO SCH (09:00)
[2018-12-09] MEDS: DICLOFENAC SODIUM 1% TOPICAL GEL 100GM TUBE. TP SCH ×2 (09:00→11:57)
[2018-12-09] MEDS: CYCLOBENZAPRINE 10 MG TABLET. PO SCH (09:00)
[2018-12-09] MEDS: INSULIN GLARGINE SYRINGE. SQ SCH (09:00)
[2018-12-09] MEDS: TAMSULOSIN 0.4 MG CAP.ER.24H. PO SCH (09:13)
[2018-12-09] MEDS: APIXABAN 5 MG TABLET. PO SCH (09:13)
[2018-12-09] MEDS: amLODIPine BESYLATE 10 MG TABLET PO SCH (09:14)
[2018-12-09] MEDS: SENNOSIDES/DOCUSATE 8.6/50MG TABLET. PO SCH (09:14)
[2018-12-09] MEDS: METOPROLOL SUCC 24HR ER 25 MG TAB.ER.24H. PO SCH (09:14)
[2018-12-09] MEDS: ASPIRIN ENTERIC COATED 81 MG TABLET.DR. PO SCH (09:14)
[2018-12-09] MEDS: GABAPENTIN 100 MG CAPSULE. PO SCH ×2 (09:14→11:57)
[2018-12-09] MEDS: LACTOBACILLUS RHAMNOSUS GG 1 CAPSULE. PO SCH (09:16)
[2018-12-09] MEDS: FERROUS SULFATE 325 MG TABLET. PO SCH (09:16)
--- NOTE | 2018-12-09 09:28 | PDOC ---
Subjective: Subjective: No complaints. She thinks she might go home today. Objective: Objective: D/w nurse - likely DC w/ Hospice today. Vital Signs: Vital Signs Date Time Temp Pulse Resp B/P (MAP) Pulse Ox O2 Delivery O2 Flow Rate FiO2 12/09/18 09:14 67 147/70 12/09/18 07:32 96 Nasal Cannula 2.0 12/09/18 07:18 97.3 18 97.3 Labs: Laboratory Tests Test 12/08/18 11:43 12/08/18 17:10 12/08/18 20:59 12/09/18 05:35 Glucose (Fingerstick) 210 mg/dL 181 mg/dL 233 mg/dL Sodium Level 142 mmol/L Potassium Level 4.1 mmol/L Chloride Level 105 mmol/L Carbon Dioxide Level 35 mmol/L Anion Gap 2 Blood Urea Nitrogen 15 mg/dL Creatinine 1.4 mg/dL Estimated GFR (Cockcroft-Gault) 37.2 BUN/Creatinine Ratio 11 Glucose Level 157 mg/dL Calcium Level 8.8 mg/dL Total Bilirubin 0.2 mg/dL Aspartate Amino Transf (AST/SGOT) 23 U/L Alanine Aminotransferase (ALT/SGPT) 124 U/L Alkaline Phosphatase 75 U/L Total Protein 5.9 g/dL Albumin 1.8 g/dL Albumin/Globulin Ratio 0.4 Test 12/09/18 07:24 Glucose (Fingerstick) 122 mg/dL PE: GEN: NAD LUNGS: NC HEART: RRR ABD: S/ND/NT NEURO/PSYCH: appropriate A/P: Chronic VALERIE - stable - 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 DANN CARTER Dec 09, 2018 09:28
[2018-12-09] MEDS: DAPTOmycin (GENERIC) IVPB 320 MG in IV NORMAL SALINE 50ML 50 ML IV SCH (09:33)
[2018-12-09 10:18] VITALS: BP 157/65
--- NOTE | 2018-12-09 10:36 | PDOC ---
PULMONARY PROGRESS NOTES Subjective extubated,12/03, on 02, sob better, has cough, no pain, is on home o2 Vitals Vital Signs Date Time Temp Pulse Resp B/P (MAP) Pulse Ox O2 Delivery O2 Flow Rate FiO2 12/09/18 10:18 97.3 71 18 157/65 (95) 98 Nasal Cannula 3.0 97.3 Comments General: Alert, No acute distress HEENT: Other (nc at perrl nose clear orally intubated neck no lad no thyromegaly) Lungs: Clear, Other (decrease bs) Cardiovascular: S1, S2 Abdomen: Soft, Non-tender, Other (no mass) Neuro Exam: Alert Extremities: Other (1+edema/ stasis) Skin: Warm Labs Laboratory Tests Test 12/07/18 11:33 12/07/18 13:09 12/07/18 16:17 12/07/18 20:29 Glucose (Fingerstick) 249 mg/dL (70-99) 265 mg/dL (70-99) 221 mg/dL (70-99) 111 mg/dL (70-99) Test 12/08/18 04:00 12/08/18 07:49 12/08/18 11:43 12/08/18 17:10 White Blood Count 3.4 x10^3/uL (4.0-11.0) Red Blood Count 3.10 x10^6/uL (3.50-5.40) Hemoglobin 7.7 g/dL (12.0-15.5) Hematocrit 24.1 % (36.0-47.0) Mean Corpuscular Volume 78 fL (79-100) Mean Corpuscular Hemoglobin 25 pg (25-35) Mean Corpuscular Hemoglobin Concent 32 g/dL (31-37) Red Cell Distribution Width 20.9 % (11.5-14.5) Platelet Count 177 x10^3/uL (140-400) Neutrophils (%) (Auto) 50 % (31-73) Lymphocytes (%) (Auto) 26 % (24-48) Monocytes (%) (Auto) 20 % (0-9) Eosinophils (%) (Auto) 4 % (0-3) Basophils (%) (Auto) 1 % (0-3) Neutrophils # (Auto) 1.7 x10^3/uL (1.8-7.7) Lymphocytes # (Auto) 0.9 x10^3/uL (1.0-4.8) Monocytes # (Auto) 0.7 x10^3/uL (0.0-1.1) Eosinophils # (Auto) 0.1 x10^3/uL (0.0-0.7) Basophils # (Auto) 0.0 x10^3/uL (0.0-0.2) Segmented Neutrophils % 52 % (35-66) Lymphocytes % 30 % (24-48) Monocytes % 14 % (0-10) Eosinophils % 3 % (0-5) Basophils % 1 % (0-3) Platelet Estimate Adequate (ADEQUATE) Hypochromasia Mod Anisocytosis Mod Sodium Level 144 mmol/L (136-145) Potassium Level 3.8 mmol/L (3.5-5.1) Chloride Level 105 mmol/L (98-107) Carbon Dioxide Level 37 mmol/L (21-32) Anion Gap 2 (6-14) Blood Urea Nitrogen 13 mg/dL (7-20) Creatinine 1.2 mg/dL (0.6-1.0) Estimated GFR (Cockcroft-Gault) 44.4 BUN/Creatinine Ratio 11 (6-20) Glucose Level 71 mg/dL (70-99) Calcium Level 9.1 mg/dL (8.5-10.1) Total Bilirubin 0.3 mg/dL (0.2-1.0) Aspartate Amino Transf (AST/SGOT) 25 U/L (15-37) Alanine Aminotransferase (ALT/SGPT) 167 U/L (14-59) Alkaline Phosphatase 84 U/L (46-116) Total Protein 6.0 g/dL (6.4-8.2) Albumin 1.8 g/dL (3.4-5.0) Albumin/Globulin Ratio 0.4 (1.0-1.7) Glucose (Fingerstick) 101 mg/dL (70-99) 210 mg/dL (70-99) 181 mg/dL (70-99) Test 12/08/18 20:59 12/09/18 05:35 12/09/18 07:24 Glucose (Fingerstick) 233 mg/dL (70-99) 122 mg/dL (70-99) Sodium Level 142 mmol/L (136-145) Potassium Level 4.1 mmol/L (3.5-5.1) Chloride Level 105 mmol/L (98-107) Carbon Dioxide Level 35 mmol/L (21-32) Anion Gap 2 (6-14) Blood Urea Nitrogen 15 mg/dL (7-20) Creatinine 1.4 mg/dL (0.6-1.0) Estimated GFR (Cockcroft-Gault) 37.2 BUN/Creatinine Ratio 11 (6-20) Glucose Level 157 mg/dL (70-99) Calcium Level 8.8 mg/dL (8.5-10.1) Total Bilirubin 0.2 mg/dL (0.2-1.0) Aspartate Amino Transf (AST/SGOT) 23 U/L (15-37) Alanine Aminotransferase (ALT/SGPT) 124 U/L (14-59) Alkaline Phosphatase 75 U/L (46-116) Total Protein 5.9 g/dL (6.4-8.2) Albumin 1.8 g/dL (3.4-5.0) Albumin/Globulin Ratio 0.4 (1.0-1.7) Laboratory Tests Test 12/08/18 11:43 12/08/18 17:10 12/08/18 20:59 12/09/18 05:35 Glucose (Fingerstick) 210 mg/dL (70-99) 181 mg/dL (70-99) 233 mg/dL (70-99) Sodium Level 142 mmol/L (136-145) Potassium Level 4.1 mmol/L (3.5-5.1) Chloride Level 105 mmol/L (98-107) Carbon Dioxide Level 35 mmol/L (21-32) Anion Gap 2 (6-14) Blood Urea Nitrogen 15 mg/dL (7-20) Creatinine 1.4 mg/dL (0.6-1.0) Estimated GFR (Cockcroft-Gault) 37.2 BUN/Creatinine Ratio 11 (6-20) Glucose Level 157 mg/dL (70-99) Calcium Level 8.8 mg/dL (8.5-10.1) Total Bilirubin 0.2 mg/dL (0.2-1.0) Aspartate Amino Transf (AST/SGOT) 23 U/L (15-37) Alanine Aminotransferase (ALT/SGPT) 124 U/L (14-59) Alkaline Phosphatase 75 U/L (46-116) Total Protein 5.9 g/dL (6.4-8.2) Albumin 1.8 g/dL (3.4-5.0) Albumin/Globulin Ratio 0.4 (1.0-1.7) Test 12/09/18 07:24 Glucose (Fingerstick) 122 mg/dL (70-99) Medications Active Scripts Medications Dose Route/Sig Max Daily Dose Days Date Category Dose Instructions Humalog (Insulin Lispro) 100 Unit/1 Ml Insuln.pen 10 Units SQ TIDWMEALS MDD 1 14 02/02/18 Rx Lantus Solostar (Insulin Glargine,Hum.rec.anlog) 100 Unit/1 Ml Insuln.pen 30 Units SQ QHS 14 02/02/18 Rx Gabapentin (Gabapentin) 100 Mg Capsule 200 Mg PO TID MDD 1 14 02/02/18 Rx Hydrocodone-Apap 5-325 (Hydrocodone Bit/Acetaminophen) 1 Each Tablet 1 Tab PO PRN Q6HRS PRN 02/02/18 Rx Potassium Chloride 10 Meq Tablet.er 10 Meq PO DAILY 01/26/18 Reported Furosemide 40 Mg Tablet 40 Mg PO BID 01/26/18 Reported Fosamax (Alendronate Sodium) 70 Mg Tablet 1 Tab PO WEEKLY 01/26/18 Reported wednesday Vitamin D2 (Ergocalciferol (Vitamin D2)) 50,000 Unit Capsule 1 Cap PO TWICE WEEKLY 01/26/18 Reported WED AND sAT Amlodipine Besylate 10 Mg Tablet 10 Mg PO DAILY MDD 1 01/24/18 Rx Clonidine Tts-2 (Clonidine) 1 Each Patch.tdwk 1 Patch TD WEEKLY MDD 1 01/24/18 Rx Hydralazine Hcl 50 Mg Tablet 50 Mg PO TID MDD 1 01/24/18 Rx Metoprolol Succinate ( Xl ) (Metoprolol Succinate) 25 Mg Tab.er.24h 1 Tab PO DAILY 12/31/17 Reported Voltaren (Diclofenac Sodium) 100 Gm Gel..gram. 1 Gm TP QID 12/31/17 Reported Ferrous Sulfate 325 Mg Tablet 325 Mg PO DAILY 10/24/17 Reported Colestipol Hcl 1 Gm Tablet 1 Gm PO DAILY 10/24/17 Reported Oxybutynin Chloride 5 Mg Tablet 5 Mg PO TID 03/17/17 Reported Lipitor (Atorvastatin Calcium) 80 Mg Tablet 80 Mg PO HS 03/17/17 Reported Levothyroxine Sodium 150 Mcg Tablet 1 Tab PO DAILY 03/17/17 Reported Isosorbide Mononitrate Er (Isosorbide Mononitrate) 30 Mg Tab.er.24h 1 Tab PO DAILY 03/17/17 Reported Lantus (Insulin Glargine,Hum.rec.anlog) 100 Unit/1 Ml Vial 52 Unit SQ BID 05/14/15 Reported MAY INCREASE FOR BLOOD SUGARS GREATER THAN 200 FASTING Duoneb 0.5-3(2.5) Mg/3 Ml (Albuterol/Ipratropium) 3 Ml Ampul.neb 3 Ml IH QID 05/14/15 Reported Ventolin Hfa Inhaler (Albuterol Sulfate) 18 Gm Hfa.aer.ad 2 Puff INH Q4HRS PRN 05/14/15 Reported Venlafaxine Hcl Er (Venlafaxine Hcl) 150 Mg Cap.er.24h 150 Mg PO DAILY 05/14/15 Reported Novolog Flexpen (Insulin Aspart) 100 Unit/1 Ml Insuln.pen 30 Unit SQ TIDAC 05/14/15 Reported Pantoprazole Sodium (Pantoprazole Sodium) 40 Mg Tablet.dr 40 Mg PO DAILY 05/14/15 Reported Trazodone Hcl 100 Mg Tablet 200 Mg PO HS 05/14/15 Reported Comments cxr 12/04 reviewed b ll infilt atelectasis effusion CT CHEST Moderate to large bilateral pleural effusions with pulmonary interstitial infiltrates and scattered bibasilar atelectatic consolidation. Mild pulmonary vascular congestion. Circumferential wall thickening of the cecum and ascending colon. Correlate for underlying colitis including ischemic etiology. No significant surrounding stranding noted however. No abscess. Advanced atherosclerotic calcific involvement of the abdominal aorta and its branches. Stenosis of the distal abdominal aorta. Urinary bladder wall thickening which may represent neurogenic bladder or chronic cystitis. Impression . 1. Acute hypoxic respiratory failure secondary to acute congestive heart failure, sepsis. resolved. extubated 2. Abnormal chest x-ray c/w CHF., effusions improved 3. The patient with history of atrial fibrillation, on amiodarone and Eliquis. Likely diastolic HF. She had prior thoracentesis done at recently. 4. Encephalopathy, likely related to cardiac pump failure. CT head negative. resolved 5. Hyperglycemia,controlled 6. Abnormal renal function could be chronic kidney disease. 7. sepsis, gnr, co neg, abx per ID 8. Severe protein-calorie malnutrition. Plan . 1. 02 titration, 2. speech f/u 3. Diuresis 4. abx per ID 5. echocardiogram with normal EF 6. Follow Cardiology recommendation. 8. Follow renal function 9. DVT and stress ulcer prophylaxis. 10. Discussed with RN DNR/ HOSPICE EVAL/ will sign off ORQUIDEA LYNN MD Dec 09, 2018 10:36
[2018-12-09] MEDS ORDERED: HYDR-2761 PO (10:52)
[2018-12-09] MEDS ORDERED: AMOX1TAB61 PO (10:54)
[2018-12-09] MEDS ORDERED: LACT1CAP19 PO (10:55)
--- NOTE | 2018-12-09 11:11 | PDOC3 ---
Discharge Summary Visit Information Date of Admission: Dec 30, 2008 Date of Discharge: Dec 09, 2018 Final Diagnosis . 1. Acute hypoxic respiratory failure secondary to acute congestive heart failure, sepsis. resolved. extubated 2. Abnormal chest x-ray c/w CHF., effusions improved 3. The patient with history of atrial fibrillation, on amiodarone and Eliquis. Likely diastolic HF. She had prior thoracentesis done at recently. 4. Encephalopathy, likely related to cardiac pump failure. CT head negative. resolved 5. Hyperglycemia,controlled 6. Abnormal renal function could be chronic kidney disease. 7. sepsis, gnr, co neg, abx per ID 8. Severe protein-calorie malnutrition. 1. 02 titration, 2. speech f/u 3. Diuresis 4. abx per ID 5. echocardiogram with normal EF 6. Follow Cardiology recommendation. 8. Follow renal function 9. DVT and stress ulcer prophylaxis. 10. Discussed with RN DNR/ HOSPICE EVAL Problems Medical Problems: (1) CHF (congestive heart failure) Status: Acute (2) Renal failure Status: Acute (3) Respiratory failure Status: Acute (4) Septic shock Status: Acute (5) UTI (urinary tract infection) Status: Acute Brief Hospital Course Allergies Allergies Coded Allergies Type Severity Reaction Last Updated Verified No Known Medication Allergies Allergy Unknown 10/25/17 Yes Vital Signs Vital Signs Date Time Temp Pulse Resp B/P (MAP) Pulse Ox O2 Delivery O2 Flow Rate FiO2 12/09/18 10:18 97.3 71 18 157/65 (95) 98 Nasal Cannula 3.0 97.3 Lab Results Laboratory Tests Test 12/07/18 11:33 12/07/18 13:09 12/07/18 16:17 12/07/18 20:29 Glucose (Fingerstick) 249 mg/dL (70-99) 265 mg/dL (70-99) 221 mg/dL (70-99) 111 mg/dL (70-99) Test 12/08/18 04:00 12/08/18 07:49 12/08/18 11:43 12/08/18 17:10 White Blood Count 3.4 x10^3/uL (4.0-11.0) Red Blood Count 3.10 x10^6/uL (3.50-5.40) Hemoglobin 7.7 g/dL (12.0-15.5) Hematocrit 24.1 % (36.0-47.0) Mean Corpuscular Volume 78 fL (79-100) Mean Corpuscular Hemoglobin 25 pg (25-35) Mean Corpuscular Hemoglobin Concent 32 g/dL (31-37) Red Cell Distribution Width 20.9 % (11.5-14.5) Platelet Count 177 x10^3/uL (140-400) Neutrophils (%) (Auto) 50 % (31-73) Lymphocytes (%) (Auto) 26 % (24-48) Monocytes (%) (Auto) 20 % (0-9) Eosinophils (%) (Auto) 4 % (0-3) Basophils (%) (Auto) 1 % (0-3) Neutrophils # (Auto) 1.7 x10^3/uL (1.8-7.7) Lymphocytes # (Auto) 0.9 x10^3/uL (1.0-4.8) Monocytes # (Auto) 0.7 x10^3/uL (0.0-1.1) Eosinophils # (Auto) 0.1 x10^3/uL (0.0-0.7) Basophils # (Auto) 0.0 x10^3/uL (0.0-0.2) Segmented Neutrophils % 52 % (35-66) Lymphocytes % 30 % (24-48) Monocytes % 14 % (0-10) Eosinophils % 3 % (0-5) Basophils % 1 % (0-3) Platelet Estimate Adequate (ADEQUATE) Hypochromasia Mod Anisocytosis Mod Sodium Level 144 mmol/L (136-145) Potassium Level 3.8 mmol/L (3.5-5.1) Chloride Level 105 mmol/L (98-107) Carbon Dioxide Level 37 mmol/L (21-32) Anion Gap 2 (6-14) Blood Urea Nitrogen 13 mg/dL (7-20) Creatinine 1.2 mg/dL (0.6-1.0) Estimated GFR (Cockcroft-Gault) 44.4 BUN/Creatinine Ratio 11 (6-20) Glucose Level 71 mg/dL (70-99) Calcium Level 9.1 mg/dL (8.5-10.1) Total Bilirubin 0.3 mg/dL (0.2-1.0) Aspartate Amino Transf (AST/SGOT) 25 U/L (15-37) Alanine Aminotransferase (ALT/SGPT) 167 U/L (14-59) Alkaline Phosphatase 84 U/L (46-116) Total Protein 6.0 g/dL (6.4-8.2) Albumin 1.8 g/dL (3.4-5.0) Albumin/Globulin Ratio 0.4 (1.0-1.7) Glucose (Fingerstick) 101 mg/dL (70-99) 210 mg/dL (70-99) 181 mg/dL (70-99) Test 12/08/18 20:59 12/09/18 05:35 12/09/18 07:24 Glucose (Fingerstick) 233 mg/dL (70-99) 122 mg/dL (70-99) Sodium Level 142 mmol/L (136-145) Potassium Level 4.1 mmol/L (3.5-5.1) Chloride Level 105 mmol/L (98-107) Carbon Dioxide Level 35 mmol/L (21-32) Anion Gap 2 (6-14) Blood Urea Nitrogen 15 mg/dL (7-20) Creatinine 1.4 mg/dL (0.6-1.0) Estimated GFR (Cockcroft-Gault) 37.2 BUN/Creatinine Ratio 11 (6-20) Glucose Level 157 mg/dL (70-99) Calcium Level 8.8 mg/dL (8.5-10.1) Total Bilirubin 0.2 mg/dL (0.2-1.0) Aspartate Amino Transf (AST/SGOT) 23 U/L (15-37) Alanine Aminotransferase (ALT/SGPT) 124 U/L (14-59) Alkaline Phosphatase 75 U/L (46-116) Total Protein 5.9 g/dL (6.4-8.2) Albumin 1.8 g/dL (3.4-5.0) Albumin/Globulin Ratio 0.4 (1.0-1.7) Laboratory Tests Test 12/08/18 11:43 12/08/18 17:10 12/08/18 20:59 12/09/18 05:35 Glucose (Fingerstick) 210 mg/dL (70-99) 181 mg/dL (70-99) 233 mg/dL (70-99) Sodium Level 142 mmol/L (136-145) Potassium Level 4.1 mmol/L (3.5-5.1) Chloride Level 105 mmol/L (98-107) Carbon Dioxide Level 35 mmol/L (21-32) Anion Gap 2 (6-14) Blood Urea Nitrogen 15 mg/dL (7-20) Creatinine 1.4 mg/dL (0.6-1.0) Estimated GFR (Cockcroft-Gault) 37.2 BUN/Creatinine Ratio 11 (6-20) Glucose Level 157 mg/dL (70-99) Calcium Level 8.8 mg/dL (8.5-10.1) Total Bilirubin 0.2 mg/dL (0.2-1.0) Aspartate Amino Transf (AST/SGOT) 23 U/L (15-37) Alanine Aminotransferase (ALT/SGPT) 124 U/L (14-59) Alkaline Phosphatase 75 U/L (46-116) Total Protein 5.9 g/dL (6.4-8.2) Albumin 1.8 g/dL (3.4-5.0) Albumin/Globulin Ratio 0.4 (1.0-1.7) Test 12/09/18 07:24 Glucose (Fingerstick) 122 mg/dL (70-99) Brief Hospital Course Ms. Sylvester is a 68-year-old female admit for found down unresponsive, small amt of spont respiration, vomited before arrival, was intubated in ER she has congestive heart failure, history of atrial fibrillation and has been followed at . Her daughter states that she had atrial fibrillation and recnt pleural effusion that was drained a month ago. on admti here, ICU admit, sepsis protocol, treated for RLL aspiration pneumonia, acute hypoxia. did well with abx, time, on vent, hard to improved, marked weakness, dysphagia new. pt didnt' want f/u on colon mass or other problems, wanted DC home with hospice. Discharge Information Condition at Discharge: Improved Follow Up: As Needed Disposition/Orders: D/C to Home w/ Hospice Scheduled Alendronate Sodium (Fosamax) 70 Mg Tablet, 1 TAB PO WEEKLY for OSTEOPOROSIS, #4 Ref 11 (Reported) wednesday Entered as Reported by: ROBERT GRANT on 01/26/182124 Last Action: Reviewed on 12/03/181818 by JAYASHREE VERA Amiodarone Hcl (Amiodarone Hcl) 200 Mg Tablet, 200 MG PO DAILY for heart, (Reported) Entered as Reported by: JAYASHREE VERA on 12/03/181611 Last Taken: Unknown Dose on Unknown Date & Time Last Action: Continued on 12/04/181112 by TICO EDUARDO Amlodipine Besylate (Amlodipine Besylate) 10 Mg Tablet, 10 MG PO DAILY for HTN MDD 1, #30 Prescribed by: PATRIZIA OAKES on 01/24/18 0948 Last Action: Reviewed on 12/03/181818 by JAYASHREE VERA Amoxicillin/Potassium Clav (Augmentin 875-125 Tablet) 1 Each Tablet, 1 TAB PO BID for e. coli, #20 Prescribed by: PILI ANAND on 12/09/18 1054 Apixaban (Eliquis) 5 Mg Tablet, 5 MG PO DAILY for afib, (Reported) Entered as Reported by: JAYASHREE VERA on 12/03/181611 Last Taken: Unknown Dose on Unknown Date & Time Last Action: Continued on 12/04/181112 by NIASabra EDUARDO Aspirin (Aspir-Low) 81 Mg Tablet.dr, 81 MG PO DAILY for heart, (Reported) Entered as Reported by: JAYASHREE VERA on 12/03/181818 Last Taken: Unknown Dose on Unknown Date & Time Last Action: Continued on 12/04/181112 by NIASabra EDUARDO Cyclobenzaprine Hcl (Cyclobenzaprine Hcl) 10 Mg Tablet, 10 MG PO DAILY for unknown, (Reported) Entered as Reported by: JAYASHREE VERA on 12/03/181818 Last Taken: Unknown Dose on Unknown Date & Time Last Action: Continued on 12/04/181112 by NIASabra EDUARDO Diclofenac Sodium (Voltaren) 100 Gm Gel..gram., 1 GM TP QID, #100 Ref 2 (Reported) Entered as Reported by: CHEO MALDONADO on 12/31/17 0250 Last Action: Continued on 12/04/181112 by TICO EDUARDO Ergocalciferol (Vitamin D2) (Vitamin D2) 50,000 Unit Capsule, 1 CAP PO TWICE WEEKLY for SUPPLEMENT, #4 Ref 5 (Reported) WED AND sAT Entered as Reported by: ROBERT GRANT on 01/26/182124 Last Action: Reviewed on 12/03/181818 by JAYASHREE EVRA Furosemide (Furosemide) 40 Mg Tablet, 20 MG PO DAILY for SWELLING, (Reported) Entered as Reported by: ROBERT GRANT on 01/26/182139 Last Action: Continued on 12/04/181112 by TICO EDUARDO Gabapentin (Gabapentin ) 100 Mg Capsule, 200 MG PO TID for tonic jerks MDD 1 for 14 Days, #84 Prescribed by: PATRIZIA OAKES on 02/02/18829 Last Action: Continued on 12/04/181112 by TICO EDUARDO Insulin Aspart (Novolog Flexpen) 100 Unit/1 Ml Insuln.pen, 18 UNIT SQ TIDAC for DM, (Reported) Entered as Reported by: NOELLE HERRON on 05/14/151505 Last Action: Edited on 12/03/181818 by JAYASHREE VERA Insulin Glargine,Hum.rec.anlog (Lantus Solostar) 100 Unit/1 Ml Insuln.pen, 30 UNITS SQ QHS for dm for 14 Days Prescribed by: PATRIZIA OAKES on 02/02/18829 Last Action: Reviewed on 12/03/181818 by JAYASHREE VERA Ipratropium/Albuterol Sulfate (Duoneb 0.5-3(2.5) Mg/3 Ml) 3 Ml Ampul.neb, 3 ML IH QID, (Reported) Entered as Reported by: NOELLE HERRON on 05/14/151505 Last Action: Continued on 12/04/181112 by TICO EDUARDO Lactobacillus Rhamnosus Gg (Culturelle) 1 Each Cap.sprink, 1 CAP PO BID for gut health on antibiotic, #30 Prescribed by: PILI ANAND on 12/09/18 1055 Levothyroxine Sodium (Levothyroxine Sodium) 150 Mcg Tablet, 1 TAB PO DAILY, #30 Ref 5 (Reported) Entered as Reported by: PALMIRA HURLEY on 03/17/17 1440 Last Action: Continued on 12/04/181112 by TICO EDUARDO Metoprolol Succinate (Metoprolol Succinate ( Xl )) 25 Mg Tab.er.24h, 50 MG PO DAILY for htn, #30 Ref 5 (Reported) Entered as Reported by: CHEO MALDONADO on 12/31/17 0250 Last Action: Edited on 12/03/181818 by JAYASHREE VERA Pantoprazole Sodium (Pantoprazole Sodium ) 40 Mg Tablet.dr, 40 MG PO DAILY, (Reported) Entered as Reported by: NOELLE HERRON on 05/14/151505 Last Action: Continued on 12/04/181112 by TICO EDUARDO Tamsulosin Hcl (Flomax) 0.4 Mg Cap.er.24h, 0.4 MG PO DAILY for retention, (Reported) Entered as Reported by: JAYASHREE VERA on 12/03/181818 Last Taken: Unknown Dose on Unknown Date & Time Last Action: Continued on 12/04/181112 by TICO EDUARDO Trazodone Hcl (Trazodone Hcl) 100 Mg Tablet, 200 MG PO HS, (Reported) Entered as Reported by: NOELLE HERRON on 05/14/151505 Last Action: Continued on 12/04/181112 by TICO EDUARDO Venlafaxine Hcl (Venlafaxine Hcl Er) 150 Mg Cap.er.24h, 150 MG PO DAILY, (Reported) Entered as Reported by: NOELLE HERRON on 05/14/151505 Last Action: Reviewed on 12/03/181818 by JAYASHREE VERA Scheduled PRN Albuterol Sulfate (Ventolin Hfa Inhaler) 18 Gm Hfa.aer.ad, 2 PUFF INH Q4HRS PRN for SHORTNESS OF BREATH, Ref 0 (Reported) Entered as Reported by: NOELLE HERRON on 05/14/151505 Last Action: Reviewed on 12/03/181818 by JAYASHREE VERA Hydrocodone Bit/Acetaminophen (Hydrocodone-Apap 5-325 ) 1 Each Tablet, 1 TAB PO PRN Q6HRS PRN for PAIN, #30 Ref 0 Prescribed by: PILI ANAND on 12/09/18 1052 Discontinued Medications Atorvastatin Calcium (Lipitor) 80 Mg Tablet, 80 MG PO HS for FOR CHOLESTEROL, #30 Ref 0 (Reported) Entered as Reported by: PALMIRA HURLEY on 03/17/17 1440 Last Action: Reviewed on 12/03/181818 by JAYASHREE VERA Colestipol Hcl (Colestipol Hcl) 1 Gm Tablet, 1 GM PO BID for uknown, (Reported) Entered as Reported by: MELINA PATTON on 10/24/17 1454 Last Action: Continued on 12/04/181112 by NIASabra EDUARDO Ferrous Sulfate (Ferrous Sulfate) 325 Mg Tablet, 325 MG PO DAILY, (Reported) Entered as Reported by: MELINA PATTON on 10/24/171453 Last Action: Continued on 12/04/181112 by NIASabra EDUARDO Tramadol Hcl (Tramadol Hcl) 50 Mg Tablet, 50 MG PO Q6HRS PRN for PAIN, ( Reported) Entered as Reported by: JAYASHREE VERA on 12/03/181818 Last Taken: Unknown Dose on Unknown Date & Time Last Action: Continued on 12/04/181112 by NIASabra EDUARDO Patient Instructions Patient Instructions > 30 min face to face DC hospice plan discussed at length her depression is confounding plan wants to stop thickener, speech to see. PILI ANAND MD Dec 09, 2018 11:10
--- NOTE | 2018-12-09 11:54 | NUR ---
SS following up with discharge planning. SS phoned and faxed discharge orders to [facility], ; fax [phone].
--- NOTE | 2018-12-09 13:08 | NUR ---
Discharge Note: HERBERT LERNER Discharge instructions and discharge home medications reviewed with Home Care Nurse/Telephone and a copy given. All questions have been answered and understanding verbalized. The following instructions and handouts were given: amoxicillin Patient discharged to home with hospice by ambulance personnel via stretcher
== END 2018-12-09 13:51 | disposition hospice, home (50) | DRG 871 ==
LOC: ER 11:05 → 1 WEST ICU 13:45 → 2 NORTH 12-05 17:35
PROVIDERS: ADMIT Internal Medicine; ATTEND Internal Medicine
PROC: 5A1945Z Respiratory Ventilation, 24-96 Consecutive Hours (ICD-10-PCS; principal; 2018-11-30)
PROC: 0BH17EZ Insertion of Endotracheal Airway into Trachea, Via Natural or Artificial Opening (ICD-10-PCS; 2018-11-30)
PROC: 02HV33Z Insertion of Infusion Device into Superior Vena Cava, Percutaneous Approach (ICD-10-PCS; 2018-11-30)
PROC: B548ZZA Ultrasonography of Superior Vena Cava, Guidance (ICD-10-PCS; 2018-11-30)
DX: A41.1 Sepsis due to other specified staphylococcus (principal); A41.50 Gram-negative sepsis, unspecified; J69.0 Pneumonitis due to inhalation of food and vomit; E43 Unspecified severe protein-calorie malnutrition; J96.21 Acute and chronic respiratory failure with hypoxia; E11.10 Type 2 diabetes mellitus with ketoacidosis without coma; I21.4 Non-ST elevation (NSTEMI) myocardial infarction; K72.00 Acute and subacute hepatic failure without coma; R65.21 Severe sepsis with septic shock; I50.41 Acute combined systolic (congestive) and diastolic (congestive) heart failure; D61.818 Other pancytopenia; D68.9 Coagulation defect, unspecified; G93.1 Anoxic brain damage, not elsewhere classified; I13.0 Hypertensive heart and chronic kidney disease with heart failure and stage 1 through stage 4 chronic kidney disease, or unspecified chronic kidney disease; N17.9 Acute kidney failure, unspecified; N39.0 Urinary tract infection, site not specified; B96.20 Unspecified Escherichia coli [E. coli] as the cause of diseases classified elsewhere; E03.9 Hypothyroidism, unspecified; E11.22 Type 2 diabetes mellitus with diabetic chronic kidney disease; E11.51 Type 2 diabetes mellitus with diabetic peripheral angiopathy without gangrene; E66.01 Morbid (severe) obesity due to excess calories; E78.00 Pure hypercholesterolemia, unspecified; E78.5 Hyperlipidemia, unspecified; E87.6 Hypokalemia; I25.10 Atherosclerotic heart disease of native coronary artery without angina pectoris; I48.0 Paroxysmal atrial fibrillation; I87.8 Other specified disorders of veins; I99.8 Other disorder of circulatory system; J44.9 Chronic obstructive pulmonary disease, unspecified; K21.9 Gastro-esophageal reflux disease without esophagitis; K63.9 Disease of intestine, unspecified; K64.9 Unspecified hemorrhoids; N18.3 Chronic kidney disease, stage 3 (moderate); Z16.11 Resistance to penicillins; Z66 Do not resuscitate; Z79.01 Long term (current) use of anticoagulants; Z82.49 Family history of ischemic heart disease and other diseases of the circulatory system; Z83.3 Family history of diabetes mellitus; Z85.3 Personal history of malignant neoplasm of breast; Z86.010 Personal history of colon polyps; Z90.49 Acquired absence of other specified parts of digestive tract; Z90.710 Acquired absence of both cervix and uterus; Z95.5 Presence of coronary angioplasty implant and graft; I25.2 Old myocardial infarction; Z79.899 Other long term (current) drug therapy; Z68.30 Body mass index [BMI] 30.0-30.9, adult
CPT/HCPCS: 36415; 36600; 70450; 71045; 71250; 74018; 74176; 74230; 80048; 80053; 81001; 82010; 82140; 82550; 82805; 82962; 83605; 83735; 83880; 84100; 84439; 84443; 84484; 85007; 85025; 85027; 85610; 87040; 87077; 87086; 87186; 87205; 93005; 93306; 93308; 94002; 94003; 94640; 94660; 94760; 96365; 96368; J0282; J0360; J0878; J1160; J1200; J1650; J1815; J1940; J2250; J2270; J2405; J2543; J2704; J3010; J3370; J3475; J3480; J3490; J7030; J7042; J7050; J7620; P9045; 92526; 92610; 92611; 97110; 97116; 97530; 97535; 99285-25; G0378